=== PATIENT | male | born 1945 | race Caucasian/White ===

== ENCOUNTER 2023-06-10 12:58 | Inpatient (IN) ==
--- NOTE | 2023-06-10 13:23 | Emergency Department Note ---
Impression & Plan Non-ST elevation CT (NSTEMI), Transaminitis, Acute hypoxic respiratory failure, Leukocytosis ED Provider Note HISTORY OF PRESENT ILLNESS: Patient is a 78-year-old male presenting with shortness of breath. Patient reports he has been having progressively worsening shortness of breath over the last 2 weeks. He wears a CPAP at nighttime but does not wear any supplemental oxygen throughout the day. He presented to an outpatient doctor's appointment today and was found to be hypoxic to 67% on room air. Patient denies any chest pain. He denies any significant weight gain in the last few days. He denies any history of heart failure. Denies any recent cough or fevers. Denies any nausea or vomiting. Patient has a history of malignant melanoma received Keytruda dosing 6 weeks ago. Patient denies any DVT or PE history. He is on 81 mg aspirin daily. Patient does report that he has been on a prednisone taper. He reports he is currently on 50 mg for the week. ROS: as above PHYSICAL EXAM: Constitutional: Patient appears in no acute distress. HENT: Head: Normocephalic and atraumatic. Eyes: EOMI, PERRL Mouth/Throat: Mucous membranes moist. Neck: Trachea midline. Neck supple. Cardiovascular: RRR, No murmurs, rubs or gallops. Intact distal pulses. Pulmonary/Chest: No respiratory distress. Breath sounds clear and equal bilaterally. Conversationally dyspneic Abdominal: Abdomen soft, no tenderness, rebound or guarding. Musculoskeletal: No edema, tenderness or deformity noted. Skin: Warm and dry. No rash, erythema, pallor or cyanosis Psychiatric: Appropriate mood and affect for situation. Neurological: Alert and keenly responsive. CN II-XII grossly intact, moving a ll extremities equally and fully. MDM: - Vitals signs showed hypoxia. Patient placed on supplemental oxygen per nursing staff. - History obtained via patient. Patient presents with shortness of breath. Patient reports he been having progressively worsening shortness of breath over the last 2 weeks. He wears a CPAP at nighttime but does not wear any supplemental oxygen throughout the day. Present outpatient doctor's appointment today and found to be hypoxic at 67% on room air. He denies any chest pain. He takes 81 mg of aspirin daily. Denies any significant weight gain or lower extremity edema. - Chronic conditions affecting care: HTN; HLD; DM-2; aortic stenosis; melanoma - Differential diagnoses include, but are not limited to: Congestive heart failure; acute coronary syndrome; COPD/asthma exacerbation; pulmonary edema; pulmonary embolism; pneumonia; pneumothorax; viral syndrome - Order placed for continuous cardiac monitoring. At this time, monitor showed rate of 75 bpm with normal sinus rhythm, per my interpretation. - External medical records reviewed. Documentation from patient's clinic appointment was reviewed. Patient was satting 66% on room air while laying flat and 88% on room air while standing up. Patient's echocardiogram performed at [facility] on 06/03/2023 was reviewed. He had a preserved ejection fraction of 65 to 69% - EKG reviewed by myself showed normal sinus rhythm. Rate 75 bpm. QTc 442. No acute ischemic changes - Laboratory workup interpreted by myself showed leukocytosis (WC 22.42) with left shift; elevated lactate (2.3); elevated troponin (484); hypokalemia (K 3.4); transaminitis (AST 226; ALT 372); normal BNP - VBG WNL - CXR showed mild pulmonary vascular congestion, per my interpretation. - UA negative for infection - CT PE negative for PE. - Biofire negative - Blood cultures obtained. - Patient started empirically on IV vancomycin and cefepime, given significant leukocytosis and new oxygen requirement. - Given heparin bolus and started on heparin gtt for NSTEMI. - Discussion was had with social sciences department chair about patient's case and need for admission - Hospitalist consulted for admission - Patient admitted to [facility] service for further evaluation and management. I provided 38 minutes of critical care time to this patient's care outside of billable procedures. 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 [place], most recent echo scanned to chart Precancerous skin lesion Sleep apnea CPAP SOB (shortness of breath) on exertion NOT WITH STAIRS, ON A HILL...WILL STOP AND RESOLVES WITH REST; ongoing x yrs without change or worsening Surgical History History of colonoscopy History of detached retina repair RIGHT History of tonsillectomy Family History Father Family history of diabetes mellitus Social History Smoking Status: Never smoker Do You Dip or Chew Tobacco: No (HX IN COLLEGE 50 YR AGO); Hx Alcohol Use: Yes Alcohol type: wine Preferred Language: Norwegian Communication Ability: Effective Communication Ability Comment: PT [facility] Machine Oiler Required: No Beliefs That Will Affect Care: None and Tenriism Tenriism Beliefs: [facility] Current Living Situation: Spouse and Family Current Living Situation Comment: AND SON COMES HOME FOR LONG WEEKENDS EVERY OTHER WEEK Feels Safe at Home: Yes Assistive Devices: CPAP and Hearing Aid - Bilateral Allergies Allergies Allergy/AdvReac Type Severity Reaction Status Date / Time No Known Allergies Allergy Verified 11/23/21 06:14 Home Meds Home Medications Medication Instructions Recorded Confirmed amlodipine 10 mg tablet 10 mg PO QAM 11/18/21 06/10/23 aspirin 81 mg tablet,delayed 81 mg PO QAM 11/18/21 06/10/23 release atorvastatin 10 mg tablet 0 mg PO HS 11/18/21 06/10/23 cholecalciferol (vitamin D3) 50 5,000 unit PO QAM 11/18/21 06/10/23 mcg (2,000 unit) capsule (Vitamin D3) finasteride 5 mg tablet 5 mg PO QAM 11/18/21 06/10/23 hydrochlorothiazide 25 mg tablet 25 mg PO QAM 11/18/21 06/10/23 losartan 100 mg tablet 100 mg PO QAM 11/18/21 06/10/23 metoprolol tartrate 50 mg tablet 25 mg PO BID 11/18/21 06/10/23 dulaglutide 1.5 mg/0.5 mL 1.5 mg subcut WK 06/10/23 06/10/23 subcutaneous pen injector (Trulicity) omeprazole 20 mg capsule,delayed 20 mg PO QAM 06/10/23 06/10/23 release prednisone 10 mg tablet See Rx Instructions .Route .COMPLEX 06/10/23 06/10/23 sertraline 50 mg tablet 50 mg PO HS 06/10/23 06/10/23 solifenacin 5 mg tablet (Vesicare) 5 mg PO DAILY 06/10/23 06/10/23 sulfamethoxazole 800 1 tab PO . MON, TUE, Tue06/10/23 06/10/23 mg-trimethoprim 160 mg tablet vitamin B complex 1 tab PO DAILY 06/10/23 06/10/23 Results & Data (ED) Vital Signs Vital Signs - 24 hr 06/10/23 13:01 06/10/23 13:17 06/10/23 13:23 Temperature 36.5 C Temperature Source Oral Pulse Rate 81 77 Pulse Rate [Apical] Respiratory Rate 24 Respiratory Effort / Characteristics Labored Accessory Muscle Use Respiratory Depth Shallow Respiratory Pattern Regular Blood Pressure 147/86 H Blood Pressure [Left Arm] Blood Pressure Mean 106 Blood Pressure Mean [Left Arm] Blood Pressure Position Sitting Blood Pressure Position [Left Arm] Pulse Oximetry 83 L Oxygen Delivery Method Room Air Nasal Cannula Oxygen Flow Rate 2 Sepsis Recent Fever Within 48 Hours No Sepsis New/Unexplained Change in Mental Status No Sepsis Action Taken by Nursing No Action Required Oxygen Flow Rate - Titration Pulse Oximetry Post Tiitration 06/10/23 13:23 06/10/23 15:35 Temperature Temperature Source Pulse Rate Pulse Rate [Apical] 81 Respiratory Rate 24 Respiratory Effort / Characteristics Non-Labored Respiratory Depth Normal Respiratory Pattern Blood Pressure Blood Pressure [Left Arm] 154/85 H Blood Pressure Mean Blood Pressure Mean [Left Arm] 108 Blood Pressure Position Blood Pressure Position [Left Arm] Sitting Pulse Oximetry 86 L 94 Oxygen Delivery Method Room Air Nasal Cannula Nasal Cannula Oxygen Flow Rate 0 3 Sepsis Recent Fever Within 48 Hours Sepsis New/Unexplained Change in Mental Status Sepsis Action Taken by Nursing Oxygen Flow Rate - Titration 2 Pulse Oximetry Post Tiitration 94 Laboratory Data 06/10/23 13:16 06/10/23 13:16 Lab Results 06/10/23 06/10/23 06/10/23 Range/Units 13:16 13:16 13:16 WBC 22.42 H (4.8-10.8) K/ul RBC 5.43 (4.70-6.10) M/uL Hgb 16.7 (14.0-18.0) g/dl Hct 48.8 (42.0-52.0) % MCV 89.9 (80.0-100.0) fL MCH 30.8 (25.0-34.0) pg MCHC 34.2 (32.0-36.0) g/dL RDW Std Deviation 46.5 H (36.4-46.3) fL RDW Coeff of Belen 14.1 (11.5-14.5) % Plt Count 213 (130-400) K/uL MPV 9.4 (9.4-12.4) fL Immature Gran % (Auto) 1.2 % Neut % (Auto) 87.0 % Lymph % (Auto) 6.6 % Wilcox % (Auto) 4.9 % Eos % (Auto) 0.1 % Baso % (Auto) 0.2 % Neut # (Auto) 19.52 H (1.40-6.50) K/uL Lymph # (Auto) 1.47 (1.20-3.40) K/uL Wilcox # (Auto) 1.10 H (0.11-0.59) K/uL Eos # (Auto) 0.03 (0.00-0.50) K/uL Baso # (Auto) 0.04 (0.00-0.20) K/uL Immature Gran # (Auto) 0.26 H (0.01-0.20) K/uL PT 11.7 (9.0-12.0) Seconds INR 1.1 (0.9-1.1) VBG pH (7.36-7.41) VBG pCO2 (38-50) mmHg VBG pO2 mmHg VBG HCO3 mmol/L VBG O2 Saturation % VBG Base Excess mEq/L Sodium 138 (136-145) mmol/L Potassium 3.4 L (3.5-5.1) mmol/L Chloride 97 L (98-107) mmol/L Carbon Dioxide 33 H (21-32) mmol/L Anion Gap 8 (3-11) BUN 30 H (6-23) mg/dl Creatinine 1.06 (0.6-1.4) mg/dl Est Cr Clr Drug Dosing 85.5 ml/min Est GFR ( Amer) 78.6 ml/min Est GFR (Non-Af Amer) 67.8 ml/min BUN/Creatinine Ratio 28.3 H (10-20) Glucose 174 H (70-99(Fasting)) mg/dl Lactate (0.4-2.0) mmol/L Calcium 9.5 (8.6-10.3) mg/dl Magnesium 2.2 (1.7-2.4) mg/dl Total Bilirubin 1.0 (0.2-1.0) mg/dl AST 226 H (13-39) U/L ALT 372 H (7-52) U/L Alkaline Phosphatase 69 (34-104) U/L Troponin I High Sens 484.0 H* (0-20) pg/ml B-Natriuretic Peptide (0-100) pg/ml Total Protein 6.9 (6.0-8.3) gm/dl Albumin 4.0 (3.4-5.0) gm/dl Globulin 2.9 (2.5-4.0) gm/dl Albumin/Globulin Ratio 1.4 (0.9-2) Urine Color Urine Appearance (Clear) Urine pH (4.5-7.5) Ur Specific Fallon (1.000-1.030) Urine Protein (Negative) Urine Glucose (UA) (Negative) Urine Ketones (Negative) Urine Blood (Negative) Urine Nitrite (Negative) Urine Bilirubin (Negative) Urine Urobilinogen (Negative) Ur Leukocyte Esterase (Negative) Urine WBC (Auto) (0-5) /hpf Urine RBC (Auto) (0-4) /hpf U Hyaline Cast (Auto) (0-5) /lpf U Epithel Cells (Auto) (0-5) /lpf Urine Bacteria (Auto) (Negative) Adenovirus (PCR) (NotDetected) B. pertussis DNA (PCR) (NotDetected) B.parapertussis DNA PCR (NotDetected) C. pneumoniae DNA (PCR) (NotDetected) Coronavirus OC43 (PCR) (NotDetected) Coronavirus HKU1 (PCR) (NotDetected) Coronavirus 229E (PCR) (NotDetected) SARS-CoV-2 (PCR) (NotDetected) Coronavirus NL63 (PCR) (NotDetected) Human Metapneumovir PCR (NotDetected) Influenza Type A (PCR) (NotDetected) Influenza Type B (PCR) (NotDetected) M. pneumoniae (PCR) (NotDetected) Parainfluenza 1 (PCR) (NotDetected) Parainfluenza 2 (PCR) (NotDetected) Parainfluenza 3 (PCR) (NotDetected) Parainfluenza 4 (PCR) (NotDetected) RSV (PCR) (NotDetected) Entero/Rhino (PCR) (NotDetected) 06/10/23 06/10/23 06/10/23 Range/Units 13:16 13:32 13:33 WBC (4.8-10.8) K/ul RBC (4.70-6.10) M/uL Hgb (14.0-18.0) g/dl Hct (42.0-52.0) % MCV (80.0-100.0) fL MCH (25.0-34.0) pg MCHC (32.0-36.0) g/dL RDW Std Deviation (36.4-46.3) fL RDW Coeff of Belen (11.5-14.5) % Plt Count (130-400) K/uL MPV (9.4-12.4) fL Immature Gran % (Auto) % Neut % (Auto) % Lymph % (Auto) % Wilcox % (Auto) % Eos % (Auto) % Baso % (Auto) % Neut # (Auto) (1.40-6.50) K/uL Lymph # (Auto) (1.20-3.40) K/uL Wilcox # (Auto) (0.11-0.59) K/uL Eos # (Auto) (0.00-0.50) K/uL Baso # (Auto) (0.00-0.20) K/uL Immature Gran # (Auto) (0.01-0.20) K/uL PT (9.0-12.0) Seconds INR (0.9-1.1) VBG pH 7.41 (7.36-7.41) VBG pCO2 50 (38-50) mmHg VBG pO2 45 mmHg VBG HCO3 32 mmol/L VBG O2 Saturation 76.0 % VBG Base Excess 5.8 mEq/L Sodium (136-145) mmol/L Potassium (3.5-5.1) mmol/L Chloride (98-107) mmol/L Carbon Dioxide (21-32) mmol/L Anion Gap (3-11) BUN (6-23) mg/dl Creatinine (0.6-1.4) mg/dl Est Cr Clr Drug Dosing ml/min Est GFR ( Amer) ml/min Est GFR (Non-Af Amer) ml/min BUN/Creatinine Ratio (10-20) Glucose (70-99(Fasting)) mg/dl Lactate (0.4-2.0) mmol/L Calcium (8.6-10.3) mg/dl Magnesium (1.7-2.4) mg/dl Total Bilirubin (0.2-1.0) mg/dl AST (13-39) U/L ALT (7-52) U/L Alkaline Phosphatase (34-104) U/L Troponin I High Sens (0-20) pg/ml B-Natriuretic Peptide 51 (0-100) pg/ml Total Protein (6.0-8.3) gm/dl Albumin (3.4-5.0) gm/dl Globulin (2.5-4.0) gm/dl Albumin/Globulin Ratio (0.9-2) Urine Color Urine Appearance (Clear) Urine pH (4.5-7.5) Ur Specific Fallon (1.000-1.030) Urine Protein (Negative) Urine Glucose (UA) (Negative) Urine Ketones (Negative) Urine Blood (Negative) Urine Nitrite (Negative) Urine Bilirubin (Negative) Urine Urobilinogen (Negative) Ur Leukocyte Esterase (Negative) Urine WBC (Auto) (0-5) /hpf Urine RBC (Auto) (0-4) /hpf U Hyaline Cast (Auto) (0-5) /lpf U Epithel Cells (Auto) (0-5) /lpf Urine Bacteria (Auto) (Negative) Adenovirus (PCR) Not Detected (NotDetected) B. pertussis DNA (PCR) Not Detected (NotDetected) B.parapertussis DNA PCR Not Detected (NotDetected) C. pneumoniae DNA (PCR) Not Detected (NotDetected) Coronavirus OC43 (PCR) Not Detected (NotDetected) Coronavirus HKU1 (PCR) Not Detected (NotDetected) Coronavirus 229E (PCR) Not Detected (NotDetected) SARS-CoV-2 (PCR) Not Detected (NotDetected) Coronavirus NL63 (PCR) Not Detected (NotDetected) Human Metapneumovir PCR Not Detected (NotDetected) Influenza Type A (PCR) Not Detected (NotDetected) Influenza Type B (PCR) Not Detected (NotDetected) M. pneumoniae (PCR) Not Detected (NotDetected) Parainfluenza 1 (PCR) Not Detected (NotDetected) Parainfluenza 2 (PCR) Not Detected (NotDetected) Parainfluenza 3 (PCR) Not Detected (NotDetected) Parainfluenza 4 (PCR) Not Detected (NotDetected) RSV (PCR) Not Detected (NotDetected) Entero/Rhino (PCR) Not Detected (NotDetected) 06/10/23 06/10/23 06/10/23 Range/Units 13:33 13:53 15:34 WBC (4.8-10.8) K/ul RBC (4.70-6.10) M/uL Hgb (14.0-18.0) g/dl Hct (42.0-52.0) % MCV (80.0-100.0) fL MCH (25.0-34.0) pg MCHC (32.0-36.0) g/dL RDW Std Deviation (36.4-46.3) fL RDW Coeff of Belen (11.5-14.5) % Plt Count (130-400) K/uL MPV (9.4-12.4) fL Immature Gran % (Auto) % Neut % (Auto) % Lymph % (Auto) % Wilcox % (Auto) % Eos % (Auto) % Baso % (Auto) % Neut # (Auto) (1.40-6.50) K/uL Lymph # (Auto) (1.20-3.40) K/uL Wilcox # (Auto) (0.11-0.59) K/uL Eos # (Auto) (0.00-0.50) K/uL Baso # (Auto) (0.00-0.20) K/uL Immature Gran # (Auto) (0.01-0.20) K/uL PT (9.0-12.0) Seconds INR (0.9-1.1) VBG pH (7.36-7.41) VBG pCO2 (38-50) mmHg VBG pO2 mmHg VBG HCO3 mmol/L VBG O2 Saturation % VBG Base Excess mEq/L Sodium (136-145) mmol/L Potassium (3.5-5.1) mmol/L Chloride (98-107) mmol/L Carbon Dioxide (21-32) mmol/L Anion Gap (3-11) BUN (6-23) mg/dl Creatinine (0.6-1.4) mg/dl Est Cr Clr Drug Dosing ml/min Est GFR ( Amer) ml/min Est GFR (Non-Af Amer) ml/min BUN/Creatinine Ratio (10-20) Glucose (70-99(Fasting)) mg/dl Lactate 2.3 H* (0.4-2.0) mmol/L Calcium (8.6-10.3) mg/dl Magnesium (1.7-2.4) mg/dl Total Bilirubin (0.2-1.0) mg/dl AST (13-39) U/L ALT (7-52) U/L Alkaline Phosphatase (34-104) U/L Troponin I High Sens 375.0 H* D (0-20) pg/ml B-Natriuretic Peptide (0-100) pg/ml Total Protein (6.0-8.3) gm/dl Albumin (3.4-5.0) gm/dl Globulin (2.5-4.0) gm/dl Albumin/Globulin Ratio (0.9-2) Urine Color Yellow Urine Appearance Clear (Clear) Urine pH 7.0 (4.5-7.5) Ur Specific Fallon 1.020 (1.000-1.030) Urine Protein Trace H (Negative) Urine Glucose (UA) Negative (Negative) Urine Ketones Negative (Negative) Urine Blood 2+ H (Negative) Urine Nitrite Negative (Negative) Urine Bilirubin Negative (Negative) Urine Urobilinogen Negative (Negative) Ur Leukocyte Esterase Negative (Negative) Urine WBC (Auto) 1-5 (0-5) /hpf Urine RBC (Auto) 0-4 (0-4) /hpf U Hyaline Cast (Auto) 1-5 (0-5) /lpf U Epithel Cells (Auto) 5-10 H (0-5) /lpf Urine Bacteria (Auto) Negative (Negative) Adenovirus (PCR) (NotDetected) B. pertussis DNA (PCR) (NotDetected) B.parapertussis DNA PCR (NotDetected) C. pneumoniae DNA (PCR) (NotDetected) Coronavirus OC43 (PCR) (NotDetected) Coronavirus HKU1 (PCR) (NotDetected) Coronavirus 229E (PCR) (NotDetected) SARS-CoV-2 (PCR) (NotDetected) Coronavirus NL63 (PCR) (NotDetected) Human Metapneumovir PCR (NotDetected) Influenza Type A (PCR) (NotDetected) Influenza Type B (PCR) (NotDetected) M. pneumoniae (PCR) (NotDetected) Parainfluenza 1 (PCR) (NotDetected) Parainfluenza 2 (PCR) (NotDetected) Parainfluenza 3 (PCR) (NotDetected) Parainfluenza 4 (PCR) (NotDetected) RSV (PCR) (NotDetected) Entero/Rhino (PCR) (NotDetected) 06/10/23 Range/Units 15:34 WBC (4.8-10.8) K/ul RBC (4.70-6.10) M/uL Hgb (14.0-18.0) g/dl Hct (42.0-52.0) % MCV (80.0-100.0) fL MCH (25.0-34.0) pg MCHC (32.0-36.0) g/dL RDW Std Deviation (36.4-46.3) fL RDW Coeff of Belen (11.5-14.5) % Plt Count (130-400) K/uL MPV (9.4-12.4) fL Immature Gran % (Auto) % Neut % (Auto) % Lymph % (Auto) % Wilcox % (Auto) % Eos % (Auto) % Baso % (Auto) % Neut # (Auto) (1.40-6.50) K/uL Lymph # (Auto) (1.20-3.40) K/uL Wilcox # (Auto) (0.11-0.59) K/uL Eos # (Auto) (0.00-0.50) K/uL Baso # (Auto) (0.00-0.20) K/uL Immature Gran # (Auto) (0.01-0.20) K/uL PT (9.0-12.0) Seconds INR (0.9-1.1) VBG pH (7.36-7.41) VBG pCO2 (38-50) mmHg VBG pO2 mmHg VBG HCO3 mmol/L VBG O2 Saturation % VBG Base Excess mEq/L Sodium (136-145) mmol/L Potassium (3.5-5.1) mmol/L Chloride (98-107) mmol/L Carbon Dioxide (21-32) mmol/L Anion Gap (3-11) BUN (6-23) mg/dl Creatinine (0.6-1.4) mg/dl Est Cr Clr Drug Dosing ml/min Est GFR ( Amer) ml/min Est GFR (Non-Af Amer) ml/min BUN/Creatinine Ratio (10-20) Glucose (70-99(Fasting)) mg/dl Lactate 1.8 (0.4-2.0) mmol/L Calcium (8.6-10.3) mg/dl Magnesium (1.7-2.4) mg/dl Total Bilirubin (0.2-1.0) mg/dl AST (13-39) U/L ALT (7-52) U/L Alkaline Phosphatase (34-104) U/L Troponin I High Sens (0-20) pg/ml B-Natriuretic Peptide (0-100) pg/ml Total Protein (6.0-8.3) gm/dl Albumin (3.4-5.0) gm/dl Globulin (2.5-4.0) gm/dl Albumin/Globulin Ratio (0.9-2) Urine Color Urine Appearance (Clear) Urine pH (4.5-7.5) Ur Specific Fallon (1.000-1.030) Urine Protein (Negative) Urine Glucose (UA) (Negative) Urine Ketones (Negative) Urine Blood (Negative) Urine Nitrite (Negative) Urine Bilirubin (Negative) Urine Urobilinogen (Negative) Ur Leukocyte Esterase (Negative) Urine WBC (Auto) (0-5) /hpf Urine RBC (Auto) (0-4) /hpf U Hyaline Cast (Auto) (0-5) /lpf U Epithel Cells (Auto) (0-5) /lpf Urine Bacteria (Auto) (Negative) Adenovirus (PCR) (NotDetected) B. pertussis DNA (PCR) (NotDetected) B.parapertussis DNA PCR (NotDetected) C. pneumoniae DNA (PCR) (NotDetected) Coronavirus OC43 (PCR) (NotDetected) Coronavirus HKU1 (PCR) (NotDetected) Coronavirus 229E (PCR) (NotDetected) SARS-CoV-2 (PCR) (NotDetected) Coronavirus NL63 (PCR) (NotDetected) Human Metapneumovir PCR (NotDetected) Influenza Type A (PCR) (NotDetected) Influenza Type B (PCR) (NotDetected) M. pneumoniae (PCR) (NotDetected) Parainfluenza 1 (PCR) (NotDetected) Parainfluenza 2 (PCR) (NotDetected) Parainfluenza 3 (PCR) (NotDetected) Parainfluenza 4 (PCR) (NotDetected) RSV (PCR) (NotDetected) Entero/Rhino (PCR) (NotDetected) Administered Medications Discontinued Medications Cefepime HCl (Maxipime) 2,000 mg in 20 mls @ 5 mls/min IV NOW STA; Protocol Stop: 06/10/23 13:48 Last Admin: 06/10/23 14:09 Dose: 5 mls/min Documented By: NAKIA Vancomycin HCl 2,750 mg/ (Sodium Chloride) 555 mls @ 200 mls/hr IV NOW ONE Stop: 06/10/23 16:37 Last Admin: 06/10/23 14:23 Dose: 200 mls/hr Documented By: NAKIA Ioversol (Optiray 320 500ml) 121 ml IV ONCE ONE Stop: 06/10/23 14:52 Last Admin: 06/10/23 14:51 Dose: 121 ml Documented By: EDK Imaging Data Radiologist's Impression: Chest CTA 06/10/23 13:10 CT angio chest PE protocol CT DOSE: 819.02 mGy.cm HISTORY: 78 years-old Male with Dyspnea; hypoxia. Acute shortness of breath with hypoxia TECHNIQUE: Multiple CTA images of the chest were obtained after the intravenous administration of 121 ml Optiray. Coronal and sagittal MIPS were obtained from the axial data set and were submitted for review. All measurements were obtained according to NASCET criteria. A dose lowering technique was utilized adhering to the principles of ALARA. COMPARISON: Chest radiograph of same day FINDINGS: CTA: Moderate cardiomegaly. No pericardial effusion. Extensive coronary artery calcifications. Atherosclerosis of the aorta. Right IJ is a port catheter distal tip terminates in the inferior SVC. Left heart structures are not well opacified and therefore difficult to evaluate. Reflux of contrast into the IVC. Suboptimal opacification of the pulmonary artery secondary to contrast bolus timing. No pulmonary emboli identified. CT CHEST: No thyroid nodule identified. No lymphadenopathy. No pneumothorax, pleural effusion or overt pulmonary edema. Mild linear subsegmental bibasilar atele ctasis. Mild bronchial wall thickening. No suspicious pulmonary nodules or mass is identified. Scattered punctate calcified pulmonary granulomata of the lung bases. Mild bibasilar mucous plugging. No acute process of the imaged upper abdomen. Distended gallbladder. Hepatic steatosis. Unremarkable soft tissues. No acute fracture. IMPRESSION: 1. Limited exam as above. There is cardiomegaly without pulmonary emboli iden tified. 2. No pleural effusion or airspace consolidation to suggest pneumonia. 3. Bronchial wall thickening suggestive of bronchitis or reactive airway disease. 4. Bibasilar mucous plugging with atelectasis. 5. Hepatic steatosis. 6. Distended gallbladder. ACT 112: Negative or not required by law. The above report was generated using voice recognition software. It may contain grammatical, syntax or spelling errors. Electronically signed by: Flaquito Clemente M.D. 06/10/2023 3:27 PM Chest X-Ray 06/10/23 13:10 XR chest 1V portable HISTORY: 78 years-old Male Dyspnea acute shortness of breath COMPARISON: None TECHNIQUE: AP view the chest FINDINGS: Cardiac silhouette is enlarged. Right IJ [id number] catheter. Pulmonary vascular congestion. Hypoinflation with bibasilar densities. No pneumothorax. Degenerative changes of the shoulders and spine. IMPRESSION: 1. Cardiomegaly with pulmonary vascular congestion. 2. Hypoinflation with mild bibasilar opacities favoring atelectasis. ACT 112: Negative or not required by law. The above report was generated using voice recognition software. It may contain grammatical, syntax or spelling errors. Electronically signed by: Flaquito Clemente M.D. 06/10/2023 1:44 PM Discharge Plan Visit Data Chief Complaint: Shortness of Breath/Dyspnea Stated Complaint: SOB, REACTION TO MEDS ED Provider: Enedelia Goldstein Discharge Problem: Non-ST elevation CT (NSTEMI), Transaminitis, Acute hypoxic respiratory failure, Leukocytosis Forms Stand Alone Forms: My [facility] [employer] Prescriptions Prescriptions: No Action atorvastatin 10 mg Tablet 0 mg PO HS Rx Instructions: per PCP office pt isnt taking the medication aspirin 81 mg Tablet,Delayed Release (Dr/Ec) 81 mg PO QAM amlodipine 10 mg Tablet 10 mg PO QAM metoprolol tartrate 50 mg Tablet 25 mg PO BID hydrochlorothiazide 25 mg Tablet 25 mg PO QAM losartan 100 mg Tablet 100 mg PO QAM finasteride 5 mg Tablet 5 mg PO QAM cholecalciferol (vitamin D3) [Vitamin D3] 50 mcg (2,000 unit) Capsule 5,000 unit PO QAM prednisone 10 mg tablet See Rx Instructions .ROUTE .COMPLEX Rx Instructions: 5 tabs in the morning per PCP office. Is on a tapering dose. sulfamethoxazole-trimethoprim 800-160 mg tablet 1 tab PO . TUE, TUE, TUE Rx Instructions: tuesday,tuesday, tuesday only omeprazole 20 mg capsule,delayed release(DR/EC) 20 mg PO QAM vitamin B complex Tablet 1 tab PO DAILY sertraline 50 mg tablet 50 mg PO HS solifenacin [Vesicare] 5 mg Tablet 5 mg PO DAILY Trulicity 1.5 mg/0.5 mL pen injector 1.5 mg SUBCUT WK Referrals Referrals: Sami Stephens DO [Primary Care Provider] -
[2023-06-10 13:44] LABS: Basophils # (auto) 0.04 K/uL (0.00-0.20); Basophils % (auto) 0.2 %; Eosinophils # (auto) 0.03 K/uL (0.00-0.50); Eosinophils % (auto) 0.1 %; Hematocrit (blood only) 48.8 % (42.0-52.0); Hemoglobin 16.7 g/dl (14.0-18.0); Immature Granulocytes # (auto) 0.26 K/uL (0.01-0.20); Immature Granulocytes % (auto) 1.2 %; Lymphocytes # (auto) 1.47 K/uL (1.20-3.40); Lymphocytes % (auto) 6.6 %; Mean Corpuscular Hemoglobin 30.8 pg (25.0-34.0); Mean Corpuscular Hgb Conc 34.2 g/dL (32.0-36.0); Mean Corpuscular Volume 89.9 fL (80.0-100.0); Mean Platelet Volume 9.4 fL (9.4-12.4); Monocytes % (auto) 4.9 %; Neutrophils # (auto) 19.52 K/uL (1.40-6.50); Platelet Count 213 K/uL (130-400); RDW Coefficient of Variation 14.1 % (11.5-14.5); RDW Standard Deviation 46.5 fL (36.4-46.3); Red Blood Count 5.43 M/uL (4.70-6.10); White Blood Count 22.42 K/ul (4.8-10.8)
[2023-06-10] MEDS ORDERED: VANCOMYCIN HCL 2,750 MG in SODIUM CHLORIDE 0.9% 500 ML IV ONE (13:45)
[2023-06-10] MEDS ORDERED: VANCOMYCIN CONSULT ACTIVE PRN (13:45)
[2023-06-10] MEDS ORDERED: CEFEPIME 2,000 MG/20 ML VIAL IV STA (13:45)
--- NOTE | 2023-06-10 13:45 | XRay Report ---
XR chest 1V portable HISTORY: 78 years-old Male Dyspnea acute shortness of breath COMPARISON: None TECHNIQUE: AP view the chest FINDINGS: Cardiac silhouette is enlarged. Right IJ [id number] catheter. Pulmonary vascular congestion. Hypoi nflation with bibasilar densities. No pneumothorax. Degenerative changes of the shoulders and spine. IMPRESSION: 1. Cardiomegaly with pulmonary vascular congestion. 2. Hypoinflation with mild bibasilar opacities favoring atelectasis. ACT 112: Negative or not required by law. The above report was generated using voice recognition software. It may contain grammatical, syntax o r spelling errors. Electronically signed by: Flaquito Clemente M.D. 06/10/2023 1:44 PM
[2023-06-10 13:47] LABS: Base Excess VBG 5.8 mEq/L; HCO3 VBG 32 mmol/L; PCO2 VBG 50 mmHg (38-50); PO2 VBG 45 mmHg; pH VBG 7.41 (7.36-7.41)
[2023-06-10 13:56] LABS: Albumin Globulin Ratio 1.4 (0.9-2); BUN Creatinine Ratio 28.3 (10-20); Calcium 9.5 mg/dl (8.6-10.3); Creatinine Clr Calc Pharmacy 85.5 ml/min; Est GFR (African American) 78.6 ml/min; Est GFR (Non-African American) 67.8 ml/min; Globulin 2.9 gm/dl (2.5-4.0); Magnesium 2.2 mg/dl (1.7-2.4); Potassium 3.4 mmol/L (3.5-5.1); Total Protein 6.9 gm/dl (6.0-8.3)
[2023-06-10 14:14] LABS: INR 1.1 (0.9-1.1); Prothrombin Time 11.7 Seconds (9.0-12.0)
[2023-06-10 14:43] LABS: Appearance Urine Clear (Clear); Bacteria Urine Automated Negative (Negative); Bilirubin Urine Negative (Negative); Blood Urine 2+ (Negative); Color Urine Yellow; Glucose Urine UA Negative (Negative); Ketones Urine Negative (Negative); Leukocyte Esterase Urine Negative (Negative); Nitrite Urine Negative (Negative); Protein Urine Trace (Negative); RBC Urine Automated 0-4 /hpf (0-4); Urobilinogen Urine Negative (Negative)
[2023-06-10] MEDS ORDERED: OPTIRAY 320 500ml IV ONE (14:51)
[2023-06-10 15:24] LABS: Adenovirus PCR Not Detected (NotDetected); Bordetella parapertussis PCR Not Detected (NotDetected); Bordetella pertussis PCR Not Detected (NotDetected); Chlamydia pneumoniae PCR Not Detected (NotDetected); Coronavirus 229E PCR Not Detected (NotDetected); Coronavirus CoV-2 (COVID19)PCR Not Detected (NotDetected); Coronavirus HKU1 PCR Not Detected (NotDetected); Coronavirus NL63 PCR Not Detected (NotDetected); Coronavirus OC43PCR Not Detected (NotDetected); Human Metapneumovirus PCR Not Detected (NotDetected); Influenza A PCR Not Detected (NotDetected); Influenza B PCR Not Detected (NotDetected); Mycoplasma pneumoniae PCR Not Detected (NotDetected); Parainfluenza Virus 1 PCR Not Detected (NotDetected); Parainfluenza Virus 2 PCR Not Detected (NotDetected); Parainfluenza Virus 3 PCR Not Detected (NotDetected); Parainfluenza Virus 4 PCR Not Detected (NotDetected); Respiratory Syncytial VirusPCR Not Detected (NotDetected); Rhinovirus/Enterovirus PCR Not Detected (NotDetected)
--- NOTE | 2023-06-10 15:28 | CT Scan Report ---
CT angio chest PE protocol CT DOSE: 819.02 mGy.cm HISTORY: 78 years-old Male with Dyspnea; hypoxia. Acute shortness of breath with hypoxia TECHNIQUE: Multiple CTA images of the chest were obtained after the intravenous administration of 121 ml Optiray. Coronal and sagittal MIPS were obtained from the axial data set and were submitted for review. All measurements were obtained according to NASCET criteria. A dose lowering technique was u tilized adhering to the principles of ALARA. COMPARISON: Chest radiograph of same day FINDINGS: CTA: Moderate cardiomegaly. No pericardial effusion. Extensive coronary artery calcifications. Atheroscler osis of the aorta. Right IJ is a port catheter distal tip terminates in the inferior SVC. Left heart structures are not well opacified and therefore difficult to evaluate. Reflux of contrast into the IV C. Suboptimal opacification of the pulmonary artery secondary to contrast bolus timing. No pulmonary emboli identified. CT CHEST: No thyroid nodule identified. No lymphadenopathy. No pneumothorax, pleural effusion or overt pulmonar y edema. Mild linear subsegmental bibasilar atelectasis. Mild bronchial wall thickening. No suspiciou s pulmonary nodules or mass is identified. Scattered punctate calcified pulmonary granulomata of the lung bases. Mild bibasilar mucous plugging. No acute process of the imaged upper abdomen. Distended gallbladder. Hepatic steatosis. Unremarkable soft tissues. No acute fracture. IMPRESSION: 1. Limited exam as above. There is cardiomegaly without pulmonary emboli identified. 2. No pleural effusion or airspace consolidation to suggest pneumonia. 3. Bronchial wall thickening suggestive of bronchitis or reactive airway disease. 4. Bibasilar mucous plugging with atelectasis. 5. Hepatic steatosis. 6. Distended gallbladder. ACT 112: Negative or not required by law. The above report was generated using voice recognition software. It may contain grammatical, syntax o r spelling errors. Electronically signed by: Flaquito Clemente M.D. 06/10/2023 3:27 PM
[2023-06-10] MEDS ORDERED: Heparin IV Adult Wt-Based Standard WITH Bolus Protocol IV STA (16:06)
[2023-06-10] MEDS ORDERED: HEPARIN SOD (PORCINE) 1000 UNIT/ML IV ONE ×2 (16:21→16:45)
--- NOTE | 2023-06-10 17:13 | History & Physical Report ---
Date of Service June 10, 2023 Assessment & Plan (1) Acute hypoxic respiratory failure: Plan: This is a 78 y/o male with metastatic melanoma, recent drug-induced hepatitis and rhabdomyolysis, prediabetes, SANDRINE on CPAP, dyslipidemia, 1st degree AV block, and anxiety who was referred to the ED today from his PCP office where he presented for evaluation of worsening cough and shortness of breath. He was found to hypoxic and referred to the ED. In the ED, work-up revealed an elevated troponin and EKG with subtle ST segment depression in the lateral leads. He was placed on 3L of O2 with improvement in sats though still symptomatically short of breath. He was given cefepime and vanco x 1 in the ED. Discussed case with cardiology at the bedside. Repeat EKG on oxygen with improvement in prior changes. Second troponin is trending down. Suspect demand ischemia related to hypoxia. CTA chest was negative for PE but showed atelectasis and mucus plugging as well as possible pneumonitis, which can be associated with Keytruda. - Admit to PCU - Continue supplemental O2 - will wean as tolerated - Appreciate cardiology input - trend troponin, repeat EKG in AM. Will hold on repeat ECHO for now since outpatient ECHO done three days ago. Will re-evaluate tomorrow pending results of additional testing. - Heparin gtt initiated in the ED - will continue for now - Check procalcitonin - holding additional antibiotics for now since pt afebrile. Suspect leukocytosis due to current prednisone course. - IV Lasix x 1 dose due to edema and potential component of fluid overload - re- evaluate need for additional diuretics tomorrow - Incentive spirometry and flutter valve ordered. - Continue current prednisone dose of 50 mg daily - defer additional taper to oncology (2) Demand ischemia of myocardium: (3) Metastatic melanoma: (4) BPH loc w urin obs/LUTS: (5) Aortic stenosis: (6) Sleep apnea: Plan: CPAP with home settings ordered. Plan Continue other home medicationas as appropriate. Pt seen and reviewed with collaborating physician, Dr. Aguilera. Plan of care discussed and as outlined above. Code Status: Full code if reasonable chance of recovery but no prolonged heroic measures DVT Prophylaxis: heparin gtt Matheus Fitch PA-C History of Present Illness Chief Complaint: shortness of breath, hypoxia at PCP office Primary Care Provider: Sami Stephens, DO This is a 78 y/o male with metastatic melanoma, recent drug-induced hepatitis and rhabdomyolysis, prediabetes, SANDRINE on CPAP, dyslipidemia, 1st degree AV block, and anxiety who was referred to the ED today from his PCP office where he presented for evaluation of worsening cough and shortness of breath but was found to be hypoxic. Pt was diagnosed with metastatic melanoma earlier this year and underwent surgical excision. 1/2 LN were positive. Pt was started on Keytruda by oncology (Dr. Maldonado) on 05/06/23 and initially did okay before developing back pain that migrated to abdomen and then head before eventually resolving. On labs before second dose, he was noted to have rhabdomyolysis and transaminitis after first dose so Keytruda was stopped and patient was started on prednisone 80 mg daily. This is slowly being tapered by oncology as labs improve. Initial CK was 12,192 on 05/27/23. Most recent on 06/09 was 3,498. Prednisone was being decreased to 50 mg daily today. Pt is also being started on Bactrim prophylaxis. He has an appointment next week to determine next steps in his treatment plan. He reports that after the pain started to resolve and after starting prednisone, he noticed increasing dyspnea with exertion and orthopnea. Typically, he is able to lie flat without issue but over the last several days, he is having difficulty sleeping because of the trouble breathing if he tries to lie down. He has also noted significant dyspnea with even walking to the bathroom, which has limited his ability to function. This dyspnea does resolve with rest. He has been checking his pulseox at home and it has been dropping into the upper 80s with exertion. He denies cough but has noted phlegm in his throat at night. When he is able to bring it up, he notes it is a small amount but thick and tenacious. He denies fevers, chills, sweats, chest pain, palpitations or syncope. His appetite is decreased and his stomach feels "queasy" on the prednisone but he denies N/V/D. He has had constipation. No blood in stools. Allergies Allergy/AdvReac Type Severity Reaction Status Date / Time No Known Allergies Allergy Verified 11/23/21 06:14 Home Medications Medication Instructions Recorded Confirmed Type amlodipine 10 mg tablet 10 mg PO QAM 11/18/21 06/10/23 History aspirin 81 mg tablet,delayed 81 mg PO QAM 11/18/21 06/10/23 History release atorvastatin 10 mg tablet 20 mg PO HS 11/18/21 06/10/23 History cholecalciferol (vitamin D3) 50 5,000 unit PO QAM 11/18/21 06/10/23 History mcg (2,000 unit) capsule (Vitamin D3) finasteride 5 mg tablet 5 mg PO QAM 11/18/21 06/10/23 History hydrochlorothiazide 25 mg tablet 25 mg PO QAM 11/18/21 06/10/23 History losartan 100 mg tablet 100 mg PO QAM 11/18/21 06/10/23 History dulaglutide 1.5 mg/0.5 mL 1.5 mg subcut WK 06/10/23 06/10/23 History subcutaneous pen injector (Trulicity) metoprolol tartrate 25 mg tablet 25 mg PO BID 06/10/23 06/10/23 History omeprazole 20 mg capsule,delayed 20 mg PO QAM 06/10/23 06/10/23 History release prednisone 10 mg tablet See Rx Instructions .Route .COMPLEX 06/10/23 06/10/23 History sertraline 50 mg tablet 50 mg PO HS 06/10/23 06/10/23 History solifenacin 5 mg tablet (Vesicare) 5 mg PO DAILY PRN urinary frequency 06/10/23 06/10/23 History sulfamethoxazole 800 1 tab PO 3XWK 06/10/23 06/10/23 History mg-trimethoprim 160 mg tablet vitamin B complex 1 tab PO DAILY 06/10/23 06/10/23 History Past Med/Surg History Medical History (Updated 06/10/23 @ 19:44 by Leslie Fitch PA-C) 1st degree AV block Benign essential tremor "BENIGN TREMOR" MOSTLY HANDS BPH loc w urin obs/LUTS Enlarged prostate Gouty arthritis History of abnormal electrocardiogram 2-3 YR AGO, TESTING DONE...DX HEART MURMUR History of colon polyps "MINOR" TO F/U IN 5-10 YRS HTN (hypertension) Hyperlipidemia Impaired renal function Moderate to severe aortic stenosis Prediabetes A1c on 05/27/23 - 6.3 Sleep apnea CPAP SOB (shortness of breath) on exertion NOT WITH STAIRS, ON A HILL...WILL STOP AND RESOLVES WITH REST; ongoing x yrs without change or worsening Surgical History History of cataract surgery History of colonoscopy History of detached retina repair RIGHT History of tonsillectomy S/P tonsillectomy Family History Father Family history of diabetes mellitus Heart disease Grandfather (Maternal) Heart disease Social History Smoking Status: Never smoker Do You Dip or Chew Tobacco: No (HX IN COLLEGE 50 YR AGO); Hx Alcohol Use: Yes Alcohol type: wine Preferred Language: Turkmen Communication Ability: Effective Communication Ability Comment: PT [facility] 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 Required: No Beliefs That Will Affect Care: None and Lutheran Lutheran Beliefs: DEMARCO Current Living Situation: Spouse and Family Current Living Situation Comment: AND SON COMES HOME FOR LONG WEEKENDS EVERY OTHER WEEK Feels Safe at Home: Yes Assistive Devices: CPAP and Hearing Aid - Bilateral Review of Systems Review of Systems: All systems reviewed & are unremarkable except as noted in HPI & below Constitutional: + fatigue and + anorexia; no fever and no chills Eyes: no diplopia Ear, Nose, Mouth, Throat: no nasal discharge and no sore throat Respiratory: as per Subjective / HPI Cardiovascular: + edema; no chest pain, no palpitations and no syncope Gastrointestinal: no abdominal pain, no vomiting and no diarrhea/loose stools Genitourinary: no dysuria or no hematuria Musculoskeletal: no myalgia and no body aches Integumentary: no yellowing of the skin Neurologic: no falls, no dizziness and no confusion Psychiatric: + anxiety Physical Exam Physical Exam: See physician documentation for full physical exam Results & Data Results & Data Vital Signs (Past 12 Hours) Vital Signs Temp Pulse Pulse Resp BP BP Pulse Ox 06/10/23 15:35 81 24 154/85 H 94 06/10/23 13:23 86 L 06/10/23 13:23 06/10/23 13:17 77 06/10/23 13:01 36.5 C 81 24 147/86 H 83 L O2 Del Method O2 Flow Rate 06/10/23 15:35 Nasal Cannula 3 06/10/23 13:23 Room Air, Nasal Cannula 0 06/10/23 13:23 Nasal Cannula 2 06/10/23 13:17 06/10/23 13:01 Room Air Laboratory Results Laboratory Results - last 24 hr 06/10/23 06/10/23 06/10/23 13:16 13:16 13:16 WBC 22.42 H RBC 5.43 Hgb 16.7 Hct 48.8 MCV 89.9 MCH 30.8 MCHC 34.2 RDW Std Deviation 46.5 H RDW Coeff of Belen 14.1 Plt Count 213 MPV 9.4 Immature Gran % (Auto) 1.2 Neut % (Auto) 87.0 Lymph % (Auto) 6.6 Republic % (Auto) 4.9 Eos % (Auto) 0.1 Baso % (Auto) 0.2 Neut # (Auto) 19.52 H Lymph # (Auto) 1.47 Republic # (Auto) 1.10 H Eos # (Auto) 0.03 Baso # (Auto) 0.04 Immature Gran # (Auto) 0.26 H PT 11.7 INR 1.1 VBG pH VBG pCO2 VBG pO2 VBG HCO3 VBG O2 Saturation VBG Base Excess Sodium 138 Potassium 3.4 L Chloride 97 L Carbon Dioxide 33 H Anion Gap 8 BUN 30 H Creatinine 1.06 Est Cr Clr Drug Dosing 85.5 Est GFR ( Amer) 78.6 Est GFR (Non-Af Amer) 67.8 BUN/Creatinine Ratio 28.3 H Glucose 174 H Lactate Calcium 9.5 Magnesium 2.2 Total Bilirubin 1.0 AST 226 H ALT 372 H Alkaline Phosphatase 69 Troponin I High Sens 484.0 H* B-Natriuretic Peptide Total Protein 6.9 Albumin 4.0 Globulin 2.9 Albumin/Globulin Ratio 1.4 Urine Color Urine Appearance Urine pH Ur Specific [place] Urine Protein Urine Glucose (UA) Urine Ketones Urine Blood Urine Nitrite Urine Bilirubin Urine Urobilinogen Ur Leukocyte Esterase Urine WBC (Auto) Urine RBC (Auto) U Hyaline Cast (Auto) U Epithel Cells (Auto) Urine Bacteria (Auto) Adenovirus (PCR) B. pertussis DNA (PCR) B.parapertussis DNA PCR C. pneumoniae DNA (PCR) Coronavirus OC43 (PCR) Coronavirus HKU1 (PCR) Coronavirus 229E (PCR) SARS-CoV-2 (PCR) Coronavirus NL63 (PCR) Human Metapneumovir PCR Influenza Type A (PCR) Influenza Type B (PCR) M. pneumoniae (PCR) Parainfluenza 1 (PCR) Parainfluenza 2 (PCR) Parainfluenza 3 (PCR) Parainfluenza 4 (PCR) RSV (PCR) Entero/Rhino (PCR) 06/10/23 06/10/23 06/10/23 13:16 13:32 13:33 WBC RBC Hgb Hct MCV MCH MCHC RDW Std Deviation RDW Coeff of Belen Plt Count MPV Immature Gran % (Auto) Neut % (Auto) Lymph % (Auto) Republic % (Auto) Eos % (Auto) Baso % (Auto) Neut # (Auto) Lymph # (Auto) Republic # (Auto) Eos # (Auto) Baso # (Auto) Immature Gran # (Auto) PT INR VBG pH 7.41 VBG pCO2 50 VBG pO2 45 VBG HCO3 32 VBG O2 Saturation 76.0 VBG Base Excess 5.8 Sodium Potassium Chloride Carbon Dioxide Anion Gap BUN Creatinine Est Cr Clr Drug Dosing Est GFR ( Amer) Est GFR (Non-Af Amer) BUN/Creatinine Ratio Glucose Lactate Calcium Magnesium Total Bilirubin AST ALT Alkaline Phosphatase Troponin I High Sens B-Natriuretic Peptide 51 Total Protein Albumin Globulin Albumin/Globulin Ratio Urine Color Urine Appearance Urine pH Ur Specific [place] Urine Protein Urine Glucose (UA) Urine Ketones Urine Blood Urine Nitrite Urine Bilirubin Urine Urobilinogen Ur Leukocyte Esterase Urine WBC (Auto) Urine RBC (Auto) U Hyaline Cast (Auto) U Epithel Cells (Auto) Urine Bacteria (Auto) Adenovirus (PCR) Not Detected B. pertussis DNA (PCR) Not Detected B.parapertussis DNA PCR Not Detected C. pneumoniae DNA (PCR) Not Detected Coronavirus OC43 (PCR) Not Detected Coronavirus HKU1 (PCR) Not Detected Coronavirus 229E (PCR) Not Detected SARS-CoV-2 (PCR) Not Detected Coronavirus NL63 (PCR) Not Detected Human Metapneumovir PCR Not Detected Influenza Type A (PCR) Not Detected Influenza Type B (PCR) Not Detected M. pneumoniae (PCR) Not Detected Parainfluenza 1 (PCR) Not Detected Parainfluenza 2 (PCR) Not Detected Parainfluenza 3 (PCR) Not Detected Parainfluenza 4 (PCR) Not Detected RSV (PCR) Not Detected Entero/Rhino (PCR) Not Detected 06/10/23 06/10/23 06/10/23 13:33 13:53 15:34 WBC RBC Hgb Hct MCV MCH MCHC RDW Std Deviation RDW Coeff of Bel[place] Plt Count MPV Immature Gran % (Auto) Neut % (Auto) Lymph % (Auto) Republic % (Auto) Eos % (Auto) Baso % (Auto) Neut # (Auto) Lymph # (Auto) [place] # (Auto) Eos # (Auto) Baso # (Auto) Immature Gran # (Auto) PT INR VBG pH VBG pCO2 VBG pO2 VBG HCO3 VBG O2 Saturation VBG Base Excess Sodium Potassium Chloride Carbon Dioxide Anion Gap BUN Creatinine Est Cr Clr Drug Dosing Est GFR ( Amer) Est GFR (Non-Af Amer) BUN/Creatinine Ratio Glucose Lactate 2.3 H* Calcium Magnesium Total Bilirubin AST ALT Alkaline Phosphatase Troponin I High Sens 375.0 H* D B-Natriuretic Peptide Total Protein Albumin Globulin Albumin/Globulin Ratio Urine Color Yellow Urine Appearance Clear Urine pH 7.0 Ur Specific [place] 1.020 Urine Protein Trace H Urine Glucose (UA) Negative Urine Ketones Negative Urine Blood 2+ H Urine Nitrite Negative Urine Bilirubin Negative Urine Urobilinogen Negative Ur Leukocyte Esterase Negative Urine WBC (Auto) 1-5 Urine RBC (Auto) 0-4 U Hyaline Cast (Auto) 1-5 U Epithel Cells (Auto) 5-10 H Urine Bacteria (Auto) Negative Adenovirus (PCR) B. pertussis DNA (PCR) B.parapertussis DNA PCR C. pneumoniae DNA (PCR) Coronavirus OC43 (PCR) Coronavirus HKU1 (PCR) Coronavirus 229E (PCR) SARS-CoV-2 (PCR) Coronavirus NL63 (PCR) Human Metapneumovir PCR Influenza Type A (PCR) Influenza Type B (PCR) M. pneumoniae (PCR) Parainfluenza 1 (PCR) Parainfluenza 2 (PCR) Parainfluenza 3 (PCR) Parainfluenza 4 (PCR) RSV (PCR) Entero/Rhino (PCR) 06/10/23 15:34 WBC RBC Hgb Hct MCV MCH MCHC RDW Std Deviation RDW Coeff of Belen Plt Count MPV Immature Gran % (Auto) Neut % (Auto) Lymph % (Auto) Republic % (Auto) Eos % (Auto) Baso % (Auto) Neut # (Auto) Lymph # (Auto) [place] # (Auto) Eos # (Auto) Baso # (Auto) Immature Gran # (Auto) PT INR VBG pH VBG pCO2 VBG pO2 VBG HCO3 VBG O2 Saturation VBG Base Excess Sodium Potassium Chloride Carbon Dioxide Anion Gap BUN Creatinine Est Cr Clr Drug Dosing Est GFR ( Amer) Est GFR (Non-Af Amer) BUN/Creatinine Ratio Glucose Lactate 1.8 Calcium Magnesium Total Bilirubin AST ALT Alkaline Phosphatase Troponin I High Sens B-Natriuretic Peptide Total Protein Albumin Globulin Albumin/Globulin Ratio Urine Color Urine Appearance Urine pH Ur Specific [place] Urine Protein Urine Glucose (UA) Urine Ketones Urine Blood Urine Nitrite Urine Bilirubin Urine Urobilinogen Ur Leukocyte Esterase Urine WBC (Auto) Urine RBC (Auto) U Hyaline Cast (Auto) U Epithel Cells (Auto) Urine Bacteria (Auto) Adenovirus (PCR) B. pertussis DNA (PCR) B.parapertussis DNA PCR C. pneumoniae DNA (PCR) Coronavirus OC43 (PCR) Coronavirus HKU1 (PCR) Coronavirus 229E (PCR) SARS-CoV-2 (PCR) Coronavirus NL63 (PCR) Human Metapneumovir PCR Influenza Type A (PCR) Influenza Type B (PCR) M. pneumoniae (PCR) Parainfluenza 1 (PCR) Parainfluenza 2 (PCR) Parainfluenza 3 (PCR) Parainfluenza 4 (PCR) RSV (PCR) Entero/Rhino (PCR) Diagnostic Findings Chest CTA 06/10/23 13:10 CT angio chest PE protocol CT DOSE: 819.02 mGy.cm HISTORY: 78 years-old Male with Dyspnea; hypoxia. Acute shortness of breath with hypoxia TECHNIQUE: Multiple CTA images of the chest were obtained after the intravenous administration of 121 ml Optiray. Coronal and sagittal MIPS were obtained from the axial data set and were submitted for review. All measurements were obtained according to NASCET criteria. A dose lowering technique was utilized adhering to the principles of ALARA. COMPARISON: Chest radiograph of same day FINDINGS: CTA: Moderate cardiomegaly. No pericardial effusion. Extensive coronary artery calcifications. Atherosclerosis of the aorta. Right IJ is a port catheter distal tip terminates in the inferior SVC. Left heart structures are not well opacified and therefore difficult to evaluate. Reflux of contrast into the IVC. Suboptimal opacification of the pulmonary artery secondary to contrast bolus timing. No pulmonary emboli identified. CT CHEST: No thyroid nodule identified. No lymphadenopathy. No pneumothorax, pleural effusion or overt pulmonary edema. Mild linear subsegmental bibasilar atelectasis. Mild bronchial wall thickening. No suspicious pulmonary nodules or mass is identified. Scattered punctate calcified pulmonary granulomata of the lung bases. Mild bibasilar mucous plugging. No acute process of the imaged upper abdomen. Distended gallbladder. Hepatic steatosis. Unremarkable soft tissues. No acute fracture. IMPRESSION: 1. Limited exam as above. There is cardiomegaly without pulmonary emboli identified. 2. No pleural effusion or airspace consolidation to suggest pneumonia. 3. Bronchial wall thickening suggestive of bronchitis or reactive airway disease. 4. Bibasilar mucous plugging with atelectasis. 5. Hepatic steatosis. 6. Distended gallbladder. ACT 112: Negative or not required by law. The above report was generated using voice recognition software. It may contain grammatical, syntax or spelling errors. Electronically signed by: Flaquito Clemente M.D. 06/10/2023 3:27 PM Chest X-Ray 06/10/23 13:10 XR chest 1V portable HISTORY: 78 years-old Male Dyspnea acute shortness of breath COMPARISON: None TECHNIQUE: AP view the chest FINDINGS: Cardiac silhouette is enlarged. Right IJ [id number] catheter. Pulmonary vascular congestion. Hypoinflation with bibasilar densities. No pneumothorax. Degenerative changes of the shoulders and spine. IMPRESSION: 1. Cardiomegaly with pulmonary vascular congestion. 2. Hypoinflation with mild bibasilar opacities favoring atelectasis. ACT 112: Negative or not required by law. The above report was generated using voice recognition software. It may contain grammatical, syntax or spelling errors. Electronically signed by: Flaquito Clemente M.D. 06/10/2023 1:44 PM Medications Administered Discontinued Medications Cefepime HCl (Maxipime) 2,000 mg in 20 mls @ 5 mls/min IV NOW STA; Protocol Stop: 06/10/23 13:48 Last Admin: 06/10/23 14:09 Dose: 5 mls/min Documented By: NAKIA Vancomycin HCl 2,750 mg/ (Sodium Chloride) 555 mls @ 200 mls/hr IV NOW ONE Stop: 06/10/23 16:37 Last Admin: 06/10/23 14:23 Dose: 200 mls/hr Documented By: NAKIA Ioversol (Optiray 320 500ml) 121 ml IV ONCE ONE Stop: 06/10/23 14:52 Last Admin: 06/10/23 14:51 Dose: 121 ml Documented By: EDK Supervising Physician Co-Signing Physician Notes 78 year old man with metastatic melanoma, recent drug-induced hepatitis and rhabdomyolysis, prediabetes, SANDRINE on CPAP, dyslipidemia, 1st degree AV block and anxiety who was referred to the ED today from his PCP office where he presented for evaluation of worsening cough and shortness of breath in the past few weeks. On exam, General: Obese in no distress Eyes: PERRL, conjunctivae normal, not pale, anicteric sclerae, EOM intact bilaterally ENMT: External ear and nose normal, oropharynx normal. Some hearing deficits+ (hearing aide in situ) Respiratory: Normal respiratory effort, no respiratory distress, diminished breath sounds lung bases Cardiovascular: RRR S1 S2 Gastrointestinal (Abdomen): Abdomen is not distended, soft, non-tender to palpation, no guarding, no palpable hepatosplenomegaly, normal bowel sounds Musculoskeletal: +Pedal edema Neurologic: Alert and oriented x 3, No focal weakness, sensation grossly intact Acute respiratory failure with hypoxia CT PE did not show PE but noted mucus plugs and atelectasis Possible pneumonitis. May be related to Keytruda Leukocytosis likely related to steroid Continue prednisone tapering patient was already on No antibiotics for now except any signs of infection Elevated trop Discussed with Java Manager Hep gtt for now IV lasix x 1 dose Incentive spirometry and flutter
[2023-06-10] MEDS: HEPARIN SODIUM/DEXTROSE 25,000 UNITS/500 ML BAG IV SCH (17:44)
--- NOTE | 2023-06-10 17:57 | Cardiology Consultation ---
Date of Consultation June 10, 2023 Assessment & Plan (1) Acute hypoxic respiratory failure: (2) Demand ischemia of myocardium: (3) Aortic stenosis: -Per discussion with patient, his symptoms certainly seem to correlate with recent introduction of Keytruda. This medication is known to have the potential side effects of a myocarditis as well as pneumonitis. Echocardiogram performed 3 days ago in routine follow-up of his history of moderate aortic stenosis revealed normal to hyperdynamic left ventricular systolic function, and the gradients across the aortic stenosis appeared relatively unchanged compared to 2021, and therefore I am not convinced that the change in the patient's condition is due to his aortic stenosis. Patient had already been placed on a course of corticosteroids as an outpatient, and his CPK has been trending down as an outpatient. Initial EKG performed today 06/10/2023 at 1311 revealed sinus rhythm at 75 bpm with first-degree AV block, and age undetermined inferior infarct pattern cannot be excluded or an age-indeterminate anterior infarct pattern due to poor R wave progression. Subtle ST segment depression noted in the lateral leads on the EKG. On repeat tracing performed at 1739 while on supplemental oxygen the repolarization changes have normalized. Patient is known to have significant coronary artery calcification on his CT chest. Given the relatively mild elevation in the high-sensitivity troponin, I think it is reasonable to start unfractionated heparin. Emergent coronary angiography is not felt to be necessary. I agree with trial of IV furosemide x1 this evening with plans to reassess volume status tomorrow. Consider ongoing treatment for bronchitis/pneumonitis. History of Present Illness History of Present Illness Ralf Larson is a 78-year-old male seen in cardiology consultation per the request of Dr Goldstein of emergency medicine. Patient seen by the undersigned in the emergency department, room A10. The patient established with Dr. Sharma of our practice in April, having moved to the area from [place]. He has a history of aortic stenosis. 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 PET scan in April, revealed focal metabolic activity of the frontal scalp. MRI of the brain performed April, and negative for metastatic disease. Patient received his first dose of Keytruda on 05/06/2023. He was due for a second dose on 06/06/2023, however in the meantime, laboratory studies dating back to 05/27/2023 revealed severe elevation in the CPK of 12,192. Echocardiogram performed in follow-up of the patient's history of aortic stenosis on 06/07/2023 with patient unable to lie supine for the test at that time LVEF in the range of 65-69%, moderate aortic valve calcification observed. Moderate to borderline severe aortic stenosis felt to be present with peak continuous-wave Doppler velocity gradient of 3.6 m/s, unchanged compared to April,. The right ventricular chamber size and systolic function were reportedly normal. Grade 1 diastolic dysfunction observed. No pericardial effusion, no evidence of pulmonary hypertension. Over the last 4 weeks the patient has noted progressive shortness of breath. A proBNP screen had been performed on 05/30/2023 was mildly elevated 276. Patient presented to primary care provider, Dr. Stephens ,today as an acute visit due to concerns of shortness of breath and was found to have hypoxia with pulse oximetry in the 60s on room air. He was subsequently referred to the emergency department for further evaluation. At present, he is comfortable, pulse oximetry 94% on 3 L nasal cannula. He is sitting at 35 degrees. Patient without any chest discomfort. Cardiology consulted due to shortness of breath and mild elevation in the high- sensitivity troponin with measurements of 484 PG per mL and 375 PG per mL as drawn 2 hours apart. Allergies Allergy/AdvReac Type Severity Reaction Status Date / Time No Known Allergies Allergy Verified 11/23/21 06:14 Home Medications Medication Instructions Recorded Confirmed Type amlodipine 10 mg tablet 10 mg PO QAM 11/18/21 06/10/23 History aspirin 81 mg tablet,delayed 81 mg PO QA 11/18/21 06/10/23 History release atorvastatin 10 mg tablet 0 mg PO HS 11/18/21 06/10/23 History cholecalciferol (vitamin D3) 50 5,000 unit PO QAM 11/18/21 06/10/23 History mcg (2,000 unit) capsule (Vitamin D3) finasteride 5 mg tablet 5 mg PO QAM 11/18/21 06/10/23 History hydrochlorothiazide 25 mg tablet 25 mg PO QAM 11/18/21 06/10/23 History losartan 100 mg tablet 100 mg PO QAM 11/18/21 06/10/23 History metoprolol tartrate 50 mg tablet 25 mg PO BID 11/18/21 06/10/23 History dulaglutide 1.5 mg/0.5 mL 1.5 mg subcut WK 06/10/23 06/10/23 History subcutaneous pen injector (Trulicity) omeprazole 20 mg capsule,delayed 20 mg PO QAM 06/10/23 06/10/23 History release prednisone 10 mg tablet See Rx Instructions .Route .COMPLEX 06/10/23 06/10/23 History sertraline 50 mg tablet 50 mg PO HS 06/10/23 06/10/23 History solifenacin 5 mg tablet (Vesicare) 5 mg PO DAILY 06/10/23 06/10/23 History sulfamethoxazole 800 1 tab PO . MON, TUE, Tue06/10/23 06/10/23 History mg-trimethoprim 160 mg tablet vitamin B complex 1 tab PO DAILY 06/10/23 06/10/23 History Patient History Medical History 1st degree AV block Benign essential tremor "BENIGN TREMOR" MOSTLY HANDS Borderline diabetes A1c 5.8% 03/2021 BPH loc w urin obs/LUTS Enlarged prostate Gouty arthritis History of abnormal electrocardiogram 2-3 YR AGO, TESTING DONE...DX HEART MURMUR History of colon polyps "MINOR" TO F/U IN 5-10 YRS HTN (hypertension) Hyperlipidemia Impaired renal function Moderate to severe aortic stenosis Sleep apnea CPAP SOB (shortness of breath) on exertion NOT WITH STAIRS, ON A HILL...WILL STOP AND RESOLVES WITH REST; ongoing x yrs without change or worsening Surgical History History of cataract surgery History of colonoscopy History of detached retina repair RIGHT History of tonsillectomy S/P tonsillectomy Family History Father Family history of diabetes mellitus Heart disease Grandfather (Maternal) Heart disease Social History Smoking Status: Never smoker Do You Dip or Chew Tobacco: No (HX IN COLLEGE 50 YR AGO); Hx Alcohol Use: Yes Alcohol type: wine Preferred Language: Maldivian Communication Ability: Effective Communication Ability Comment: PT [facility] Trimming Cutter Required: No Beliefs That Will Affect Care: None and Congregational Congregational Beliefs: SPIRITISM Current Living Situation: Spouse and Family Current Living Situation Comment: AND SON COMES HOME FOR LONG WEEKENDS EV [place] OTHER WEEK Feels Safe at Home: Yes Assistive Devices: CPAP and Hearing Aid - Bilateral Review of Systems Review of Systems: All systems reviewed & are unremarkable except as noted in HPI & below Physical Exam Constitutional: + ill appearing Respiratory: Auscultation: + diminished lung sounds (Coarse breath sounds at the bases) Cardiovascular: Rate/Rhythm: regular rate and regular rhythm Heart Sounds: + murmur (1/6 systolic murmur) Extremities: no edema Gastrointestinal (Abdomen): normal bowel sounds, soft, nontender, no hepatosplenomegaly Neurologic: PERRL, EOMI, accommodation nl, no face palsy, no dysarthria Results & Data Vital Signs (Past 12 Hours) Vital Signs Temp Pulse Pulse Resp BP BP Pulse Ox 06/10/23 17:48 81 18 178/97 H 94 06/10/23 17:04 78 20 176/106 H 94 06/10/23 15:35 81 24 154/85 H 94 06/10/23 13:23 86 L 06/10/23 13:23 06/10/23 13:17 77 06/10/23 13:01 36.5 C 81 24 147/86 H 83 L O2 Del Method O2 Flow Rate 06/10/23 17:48 Nasal Cannula 3 06/10/23 17:04 Nasal Cannula 3 06/10/23 15:35 Nasal Cannula 3 06/10/23 13:23 Room Air, Nasal Cannula 0 06/10/23 13:23 Nasal Cannula 2 06/10/23 13:17 06/10/23 13:01 Room Air Laboratory Results Cardiac Enzymes 06/10/23 06/10/23 06/10/23 Range/Units 13:16 13:16 15:34 AST 226 H (13-39) U/L Troponin I High Sens 484.0 H* 375.0 H* D (0-20) pg/ml B-Natriuretic Peptide 51 (0-100) pg/ml Coagulation 06/10/23 06/10/23 Range/Units 13:16 13:16 PT 11.7 (9.0-12.0) Seconds B-Natriuretic Peptide 51 (0-100) pg/ml CBC 06/10/23 Range/Units 13:16 WBC 22.42 H (4.8-10.8) K/ul RBC 5.43 (4.70-6.10) M/uL Hgb 16.7 (14.0-18.0) g/dl Hct 48.8 (42.0-52.0) % Plt Count 213 (130-400) K/uL Neut # (Auto) 19.52 H (1.40-6.50) K/uL Lymph # (Auto) 1.47 (1.20-3.40) K/uL [place] # (Auto) 1.10 H (0.11-0.59) K/uL Eos # (Auto) 0.03 (0.00-0.50) K/uL Baso # (Auto) 0.04 (0.00-0.20) K/uL Comprehensive Metabolic Panel 06/10/23 Range/Units 13:16 Sodium 138 (136-145) mmol/L Potassium 3.4 L (3.5-5.1) mmol/L Chloride 97 L (98-107) mmol/L Carbon Dioxide 33 H (21-32) mmol/L BUN 30 H (6-23) mg/dl Creatinine 1.06 (0.6-1.4) mg/dl Glucose 174 H (70-99(Fasting)) mg/dl Calcium 9.5 (8.6-10.3) mg/dl AST 226 H (13-39) U/L ALT 372 H (7-52) U/L Alkaline Phosphatase 69 (34-104) U/L Total Protein 6.9 (6.0-8.3) gm/dl Albumin 4.0 (3.4-5.0) gm/dl Intake and Output 06/10/23 06/10/23 06/10/23 06:59 14:59 22:59 Other: Weight 152.2 kg Weight Measurement Method Built in [facility] Patient Weight 06/11/23 06:59 Weight 152.2 kg Diagnostic Findings Summary of recent transthoracic echocardiogram performed as an outpatient 06/03/2023: The examination is adequate to evaluate the referral indication. Images are technically limited secondary to body habitus and upright position The left ventricular cavity size is normal. The LV wall thickness is moderately increased (concentric). The left ventricular wall motion is normal. The qualitative LV ejection fraction is 65-69% (normal). The left ventricular diastolic function is mildly abnormal (grade I). The aortic valve is moderately calcified. Moderate to borderline severe aortic valve stenosis is present. There is mild aortic insufficiency The aortic root and proximal ascending aorta are normal sized. There is moderate mitral annular calcification. Compared to prior study of May 04, 2022, there is no significant change. CT angiogram of the chest was performed in the emergency room 06/10/2023, the radiology report describes technically limited evaluation without pulmonary emboli No pleural effusion or airspace consolidation to suggest pneumonia Bronchial wall thickening suggestive of bronchitis or reactive airway disease Bibasilar mucous plugging with atelectasis Hepatosteatosis
[2023-06-10] MEDS ORDERED: POTASSIUM CHLORIDE CRTAB 20 MEQ TABCR PO STA (18:29)
[2023-06-10] MEDS ORDERED: FUROSEMIDE 40 MG/4 ML VIAL IV ONE (18:30)
[2023-06-10] MEDS ORDERED: ACETAMINOPHEN 325 MG TAB PO PRN (20:55)
[2023-06-10] MEDS: guaiFENesin 600 MG TABCR PO SCH (22:16)
[2023-06-10] MEDS: METOPROLOL TARTRATE 25 MG TAB PO SCH (22:16)
[2023-06-10] MEDS: SERTRALINE HCL 50 MG TABLET PO SCH (22:17)
--- NOTE | 2023-06-10 23:37 | Electrocardiogram Report ---
Test Reason : Blood Pressure : / mmHG Vent. Rate : 075 BPM Atrial Rate : 075 BPM P-R Int : 212 ms QRS Dur : 090 ms QT Int : 396 ms P-R-T Axes : 000 -47 -03 degrees QTc Int : 442 ms Sinus rhythm with marked sinus arrhythmia with 1st degree A-V block Left axis deviation Low voltage QRS Inferior infarct , age undetermined Cannot rule out Anterior infarct , age undetermined Abnormal ECG No previous ECGs available Confirmed by Heron Cook ([id number]) on 06/10/2023 11:36:51 PM Referred By: Confirmed By:Heron Cook
[2023-06-11] MEDS ORDERED: HEPARIN 100 UNIT/ML 5ML FLUSH FLUSH PRN (00:16)
[2023-06-11 01:06] LABS: Partial Thromboplastin Ratio > 4.9
[2023-06-11 01:44] LABS: Partial Thromboplastin Time > 139.0 Seconds (21.0-31.0)
[2023-06-11 04:05] LABS: Basophils # (auto) 0.05 K/uL (0.00-0.20); Basophils % (auto) 0.2 %; Eosinophils # (auto) 0.03 K/uL (0.00-0.50); Eosinophils % (auto) 0.1 %; Hematocrit (blood only) 46.6 % (42.0-52.0); Hemoglobin 15.8 g/dl (14.0-18.0); Immature Granulocytes # (auto) 0.18 K/uL (0.01-0.20); Immature Granulocytes % (auto) 0.8 %; Lymphocytes # (auto) 2.31 K/uL (1.20-3.40); Lymphocytes % (auto) 10.6 %; Mean Corpuscular Hemoglobin 30.6 pg (25.0-34.0); Mean Corpuscular Hgb Conc 33.9 g/dL (32.0-36.0); Mean Corpuscular Volume 90.1 fL (80.0-100.0); Mean Platelet Volume 9.3 fL (9.4-12.4); Monocytes # (auto) 1.46 K/uL (0.11-0.59); Monocytes % (auto) 6.7 %; Neutrophils # (auto) 17.83 K/uL (1.40-6.50); Neutrophils % (auto) 81.6 %; Platelet Count 183 K/uL (130-400); RDW Coefficient of Variation 13.7 % (11.5-14.5); RDW Standard Deviation 45.9 fL (36.4-46.3); Red Blood Count 5.17 M/uL (4.70-6.10); White Blood Count 21.86 K/ul (4.8-10.8)
[2023-06-11 04:16] LABS: Calcium 8.8 mg/dl (8.6-10.3); Creatinine Clr Calc Pharmacy 97.4 ml/min; Est GFR (African American) 92.1 ml/min; Est GFR (Non-African American) 79.5 ml/min; Potassium 3.6 mmol/L (3.5-5.1)
[2023-06-11 04:29] LABS: Albumin Level 3.5 gm/dl (3.4-5.0); Bilirubin Direct 0.1 mg/dl (0-0.2); Bilirubin,Total 0.8 mg/dl (0.2-1.0); Magnesium 2.1 mg/dl (1.7-2.4); Troponin I High Sensitivity 405.8 pg/ml (0-20)
[2023-06-11 04:50] LABS: Partial Thromboplastin Ratio 2.9
[2023-06-11 05:13] LABS: Partial Thromboplastin Time 82.2 Seconds (21.0-31.0)
--- NOTE | 2023-06-11 07:41 | Electrocardiogram Report ---
Test Reason : Blood Pressure : / mmHG Vent. Rate : 080 BPM Atrial Rate : 080 BPM P-R Int : 202 ms QRS Dur : 082 ms QT Int : 370 ms P-R-T Axes : 022 -58 004 degrees QTc Int : 426 ms Sinus rhythm with Premature supraventricular complexes and Premature ventricular complexes or Fusion complexes 1st degree AV block Left axis deviation Low voltage QRS Inferior infarct (cited on or before 10-JUN-2023) Possible Anterolateral infarct (cited on or before 10-JUN-2023) Abnormal ECG Confirmed by Jose Philip ([id number]) on 06/11/2023 7:41:06 AM Referred By: REFERRED SELF Confirmed By:Neil Philip
[2023-06-11] MEDS: METOPROLOL TARTRATE 25 MG TAB PO SCH ×2 (08:38→20:21)
[2023-06-11] MEDS: predniSONE 50 MG TAB PO SCH (08:38)
[2023-06-11] MEDS: VITAMIN B COMPLEX TAB PO SCH (08:38)
[2023-06-11] MEDS: guaiFENesin 600 MG TABCR PO SCH ×2 (08:38→20:22)
[2023-06-11] MEDS: FINASTERIDE 5 MG TAB PO SCH (08:39)
[2023-06-11] MEDS: ASPIRIN 81 MG ECTAB PO SCH (08:39)
[2023-06-11] MEDS: LOSARTAN POTASSIUM 50 MG TAB PO SCH (08:39)
[2023-06-11] MEDS: CHOLECALCIFEROL 5,000 UNITS 125 MCG TAB PO SCH (08:39)
[2023-06-11] MEDS: amLODIPine BESYLATE 5 MG TAB PO SCH (08:39)
[2023-06-11] MEDS: PANTOprazole 40 MG TAB PO SCH (08:39)
--- NOTE | 2023-06-11 11:40 | Hospitalist Progress Note ---
Date of Service June 11, 2023 Assessment & Plan (1) Acute hypoxic respiratory failure: Plan: 78 y/o male with metastatic melanoma, recent drug-induced hepatitis and rhabdomyolysis, prediabetes, SANDRINE on CPAP, dyslipidemia, 1st degree AV block, and anxiety who was referred to the ED today from his PCP office where he presented for evaluation of worsening cough and shortness of breath. He was found to hypoxic and referred to the ED. In the ED, work-up revealed an elevated troponin and EKG with subtle ST segment depression in the lateral leads. He was placed on 3L of O2 with improvement in sats though still symptomatically short of breath. He was given cefepime and vanco x 1 in the ED. Repeat EKG on oxygen with improvement in prior changes. CTA chest was negative for PE but showed atelectasis and mucus plugging and atelectasisi Possible pneumonitis. May be related to Keytruda Leukocytosis likely related to steroid Procalcitonin<0.05 Continue current prednisone dose of 50 mg daily patient was already on. Defer additional taper to oncology No antibiotics for now Continue Incentive spirometry and flutter valve. Continue mucinex Wean oxygen as tolerated. Will need 2 step prior to dc (2) Demand ischemia of myocardium: Plan: Was on hep gtt Echocardiogram performed 3 days ago in routine follow-up of his history of moderate aortic stenosis revealed normal to hyperdynamic left ventricular systolic function and the gradients across the aortic stenosis appeared relatively unchanged compared to 2021 Cardiology eval and recs noted Hep gtt stopped (3) Metastatic melanoma: Plan: Continue outpatient follow up with [facility] Recent drug induced [place] [address] on 05/27/23, down to 2308 today AST is 168 today (was 226 yesterday) ALT is 310 today (was 376 yesterday) Monitor (4) BPH loc w urin obs/LUTS: Plan: Continue home proscar (5) Aortic stenosis: (6) Sleep apnea: Plan: CPAP with home settings ordered. (7) HTN (hypertension): Plan: Continue home losartan, metoprolol, amlodipine DVT ppx: hep sq Full code Get PT/OT eval I spent a total of 60 minutes coordinating, documenting and providing care for this patient excluding time spent in performance of separately billed services Admission and Anticipated Discharge Date Admission Date: June 10, 2023 Subjective Patient seen and examined Reports feeling a bit better today Still has cough and some shortness of breath Reports weakness Denied fever, chills, nausea, vomiting, abd pain, diarrhea, dysuria, freq, urgency Physical Exam 2 Constitutional: + well hydrated and + obese; no acute distress Eyes: PERRL, conjunctivae normal, anicteric sclerae ENMT: external ear and nose normal, oropharynx normal some hearing deficits Respiratory: normal respiratory effort; no respiratory distress improved air entry Cardiovascular: Rate/Rhythm: regular rate and regular rhythm S1 S2 Gastrointestinal (Abdomen): normal bowel sounds, soft, nontender, no hepatosplenomegaly Musculoskeletal: Pedal edema much improved compared to yesterday Neurologic: PERRL, EOMI, accommodation nl, no face palsy, no dysarthria Psychiatric: A+Ox3, euthymic affect Results & Data Results & Data Vital Signs (Past 12 Hours) Vital Signs Temp Pulse Pulse Resp BP Pulse Ox O2 Del Method 06/11/23 08:00 80 06/11/23 08:00 Nasal Cannula 06/11/23 07:46 36.4 C L 84 17 122/76 94 Room Air 06/11/23 04:24 36.4 C L 79 18 146/88 H 95 CPAP 06/11/23 02:09 84 25 H 93 06/10/23 23:50 36.5 C 77 18 152/96 H 95 CPAP O2 Flow Rate 06/11/23 08:00 06/11/23 08:00 06/11/23 07:46 06/11/23 04:24 06/11/23 02:09 4 06/10/23 23:50 Laboratory Results Abnormal lab results 06/10/23 06/10/23 06/10/23 Range/Units 13:16 13:16 13:33 WBC 22.42 H (4.8-10.8) K/ul RDW Std Deviation 46.5 H (36.4-46.3) fL MPV (9.4-12.4) fL Neut # (Auto) 19.52 H (1.40-6.50) K/uL [place] # (Auto) 1.10 H (0.11-0.59) K/uL Immature Gran # (Auto) 0.26 H (0.01-0.20) K/uL APTT (21.0-31.0) Seconds Potassium 3.4 L (3.5-5.1) mmol/L Chloride 97 L (98-107) mmol/L Carbon Dioxide 33 H (21-32) mmol/L BUN 30 H (6-23) mg/dl BUN/Creatinine Ratio 28.3 H (10-20) Glucose 174 H (70-99(Fasting)) mg/dl Lactate 2.3 H* (0.4-2.0) mmol/L AST 226 H (13-39) U/L ALT 372 H (7-52) U/L Total Creatine Kinase (30-223) U/L Troponin I High Sens 484.0 H* (0-20) pg/ml Urine Protein (Negative) Urine Blood (Negative) U Epithel Cells (Auto) (0-5) /lpf 06/10/23 06/10/23 06/10/23 Range/Units 13:53 15:34 21:37 WBC (4.8-10.8) K/ul RDW Std Deviation (36.4-46.3) fL MPV (9.4-12.4) fL Neut # (Auto) (1.40-6.50) K/uL [place] # (Auto) (0.11-0.59) K/uL Immature Gran # (Auto) (0.01-0.20) K/uL APTT (21.0-31.0) Seconds Potassium (3.5-5.1) mmol/L Chloride (98-107) mmol/L Carbon Dioxide (21-32) mmol/L BUN (6-23) mg/dl BUN/Creatinine Ratio (10-20) Glucose (70-99(Fasting)) mg/dl Lactate (0.4-2.0) mmol/L AST (13-39) U/L ALT (7-52) U/L Total Creatine Kinase (30-223) U/L Troponin I High Sens 375.0 H* D 372.2 H* (0-20) pg/ml Urine Protein Trace H (Negative) Urine Blood 2+ H (Negative) U Epithel Cells (Auto) 5-10 H (0-5) /lpf 06/11/23 06/11/23 06/11/23 Range/Units 00:03 03:28 03:28 WBC 21.86 H (4.8-10.8) K/ul RDW Std Deviation (36.4-46.3) fL MPV 9.3 L (9.4-12.4) fL Neut # (Auto) 17.83 H (1.40-6.50) K/uL [place] # (Auto) 1.46 H (0.11-0.59) K/uL Immature Gran # (Auto) (0.01-0.20) K/uL APTT > 139.0 H* (21.0-31.0) Seconds Potassium (3.5-5.1) mmol/L Chloride (98-107) mmol/L Carbon Dioxide (21-32) mmol/L BUN 26 H (6-23) mg/dl BUN/Creatinine Ratio 28.0 H (10-20) Glucose 132 H (70-99(Fasting)) mg/dl Lactate (0.4-2.0) mmol/L AST 168 H (13-39) U/L ALT 310 H (7-52) U/L Total Creatine Kinase 2308 H (30-223) U/L Troponin I High Sens 405.8 H* (0-20) pg/ml Urine Protein (Negative) Urine Blood (Negative) U Epithel Cells (Auto) (0-5) /lpf 06/11/23 Range/Units 03:28 WBC (4.8-10.8) K/ul RDW Std Deviation (36.4-46.3) fL MPV (9.4-12.4) fL Neut # (Auto) (1.40-6.50) K/uL [place] # (Auto) (0.11-0.59) K/uL Immature Gran # (Auto) (0.01-0.20) K/uL APTT 82.2 H* (21.0-31.0) Seconds Potassium (3.5-5.1) mmol/L Chloride (98-107) mmol/L Carbon Dioxide (21-32) mmol/L BUN (6-23) mg/dl BUN/Creatinine Ratio (10-20) Glucose (70-99(Fasting)) mg/dl Lactate (0.4-2.0) mmol/L AST (13-39) U/L ALT (7-52) U/L Total Creatine Kinase (30-223) U/L Troponin I High Sens (0-20) pg/ml Urine Protein (Negative) Urine Blood (Negative) U Epithel Cells (Auto) (0-5) /lpf
[2023-06-11 12:24] LABS: Partial Thromboplastin Ratio 2.1
[2023-06-11 12:30] LABS: Partial Thromboplastin Time 59.5 Seconds (21.0-31.0)
[2023-06-11] MEDS: HEPARIN SODIUM/DEXTROSE 25,000 UNITS/500 ML BAG IV SCH (12:58)
--- NOTE | 2023-06-11 14:05 | Cardiology Progress Note ---
Date of Service June 11, 2023 Assessment & Plan (1) Acute hypoxic respiratory failure: (2) Demand ischemia of myocardium: (3) Aortic stenosis: Plan: I suspect current symptoms/presentation related to treatment with Keytruda. As previously noted, medication is known to have potential side effect of myocarditis or pneumonitis. Echocardiogram performed 3 days ago in routine follow-up of his history of moderate aortic stenosis revealed normal to hyperdynamic left ventricular systolic function, and the gradients across the aortic stenosis appeared relatively unchanged compared to 2021. Patient had already been placed on a course of corticosteroids as an outpatient, and his CPK has been trending down as an outpatient. Elevated troponin likely secondary to hypoxia. Ongoing treatment for bronchitis/pneumonitis as per hospitalist. IV heparin may be discontinued. DVT prophylaxis as per hospitalist. Admission and Anticipated Discharge Date Admission Date: June 10, 2023 Subjective Patient seen and examined at the bedside. Telemetry reveals sinus rhythm in the 70s. Denies chest discomfort. Dyspnea unchanged. Oxygen saturation above 90% on 4 L nasal cannula. No orthopnea, PND, or edema. Review of Systems Review of Systems: All systems reviewed & are unremarkable except as noted in Subjective Physical Exam Constitutional: well nourished; no acute distress Respiratory: no respiratory distress and no labored breathing Auscultation: + diminished lung sounds (Bases bilateral) and + rhonchi (Coarse breath sounds) Cardiovascular: Rate/Rhythm: regular rate and regular rhythm Heart Sounds: normal S1, normal S2 and + murmur (1/6 systolic ejection murmur) Vessels: no JVD Extremities: no edema Gastrointestinal (Abdomen): Inspection/Auscultation: normal bowel sounds; abdomen not distended Percussion/Palpation: abdomen soft; abdomen nontender, no guarding and abdomen not rigid Neurologic: CN's II-XI intact bilaterally and moves all extremities; no focal motor deficits Results & Data Vital Signs (Past 12 Hours) Vital Signs Temp Pulse Pulse Resp BP Pulse Ox O2 Del Method 06/11/23 11:59 36.9 C 78 18 150/90 H 93 Nasal Cannula 06/11/23 08:00 80 06/11/23 08:00 Nasal Cannula 06/11/23 07:46 36.4 C L 84 17 122/76 94 Room Air 06/11/23 04:24 36.4 C L 79 18 146/88 H 95 CPAP 06/11/23 02:09 84 25 H 93 O2 Flow Rate 06/11/23 11:59 4 06/11/23 08:00 06/11/23 08:00 06/11/23 07:46 06/11/23 04:24 06/11/23 02:09 4 Laboratory Results Cardiac Enzymes 06/10/23 06/10/23 06/10/23 Range/Units 13:16 13:16 15:34 AST (13-39) U/L Troponin I High Sens 484.0 H* 375.0 H* D (0-20) pg/ml B-Natriuretic Peptide 51 (0-100) pg/ml 06/10/23 06/11/23 Range/Units 21:37 03:28 AST 168 H (13-39) U/L Troponin I High Sens 372.2 H* 405.8 H* (0-20) pg/ml B-Natriuretic Peptide (0-100) pg/ml Coagulation 06/10/23 06/10/23 06/11/23 Range/Units 13:16 13:16 00:03 PT 11.7 (9.0-12.0) Seconds APTT > 139.0 H* (21.0-31.0) Seconds B-Natriuretic Peptide 51 (0-100) pg/ml 06/11/23 06/11/23 Range/Units 03:28 11:16 PT (9.0-12.0) Seconds APTT 82.2 H* 59.5 H* (21.0-31.0) Seconds B-Natriuretic Peptide (0-100) pg/ml CBC 06/11/23 Range/Units 03:28 WBC 21.86 H (4.8-10.8) K/ul RBC 5.17 (4.70-6.10) M/uL Hgb 15.8 (14.0-18.0) g/dl Hct 46.6 (42.0-52.0) % Plt Count 183 (130-400) K/uL Neut # (Auto) 17.83 H (1.40-6.50) K/uL Lymph # (Auto) 2.31 (1.20-3.40) K/uL [place] # (Auto) 1.46 H (0.11-0.59) K/uL Eos # (Auto) 0.03 (0.00-0.50) K/uL Baso # (Auto) 0.05 (0.00-0.20) K/uL Comprehensive Metabolic Panel 06/11/23 Range/Units 03:28 Sodium 137 (136-145) mmol/L Potassium 3.6 (3.5-5.1) mmol/L Chloride 100 (98-107) mmol/L Carbon Dioxide 30 (21-32) mmol/L BUN 26 H (6-23) mg/dl Creatinine 0.93 (0.6-1.4) mg/dl Glucose 132 H (70-99(Fasting)) mg/dl Calcium 8.8 (8.6-10.3) mg/dl Direct Bilirubin 0.1 (0-0.2) mg/dl AST 168 H (13-39) U/L ALT 310 H (7-52) U/L Alkaline Phosphatase 63 (34-104) U/L Total Protein 6.0 (6.0-8.3) gm/dl Albumin 3.5 (3.4-5.0) gm/dl Intake and Output 06/10/23 06/11/23 06/11/23 22:59 06:59 14:59 Intake Total 305.867 / 305.867 194.133 / 194.133 Output Total 300 / 301 / Balance -300 / 4.867 304.867 / 4.867 194.133 / 194.133 Intake: IV 305.867 / 305.867 194.133 / 194.133 Heparin Sodium/Dextrose 25,000 305.867 / 305.867 194.133 / 194.133 units In 500 ml @ 1,850 UNITS/ HR 37 mls/hr IV .[id number] [facility] Rx #:[id number] Output: Urine 300 / 300 # Bowel Movements Other: # Unmeasured Voids 1 Weight 152.2 kg 150.252 kg Weight Measurement Method Built in [facility] Built in [facility]
[2023-06-11] MEDS: SERTRALINE HCL 50 MG TABLET PO SCH (20:21)
[2023-06-11] MEDS: HEPARIN SOD 5,000 UNIT/0.5 ML VIAL SQ SCH (23:15)
[2023-06-12] MEDS: HEPARIN SOD 5,000 UNIT/0.5 ML VIAL SQ SCH ×3 (05:43→22:37)
[2023-06-12 06:37] LABS: Hematocrit (blood only) 47.1 % (42.0-52.0); Hemoglobin 15.9 g/dl (14.0-18.0); Mean Corpuscular Hemoglobin 30.8 pg (25.0-34.0); Mean Corpuscular Hgb Conc 33.8 g/dL (32.0-36.0); Mean Corpuscular Volume 91.1 fL (80.0-100.0); Mean Platelet Volume 9.6 fL (9.4-12.4); Platelet Count 179 K/uL (130-400); RDW Standard Deviation 47.1 fL (36.4-46.3); Red Blood Count 5.17 M/uL (4.70-6.10); White Blood Count 22.91 K/ul (4.8-10.8)
[2023-06-12 07:11] LABS: Albumin Globulin Ratio 1.4 (0.9-2); Albumin Level 3.6 gm/dl (3.4-5.0); BUN Creatinine Ratio 35.1 (10-20); Bilirubin,Total 0.8 mg/dl (0.2-1.0); Est GFR (African American) 87.5 ml/min; Est GFR (Non-African American) 75.5 ml/min; Globulin 2.6 gm/dl (2.5-4.0); Magnesium 2.2 mg/dl (1.7-2.4); Phosphorus 3.5 mg/dl (2.5-4.9); Potassium 3.6 mmol/L (3.5-5.1); Total Protein 6.2 gm/dl (6.0-8.3)
[2023-06-12] MEDS: VITAMIN B COMPLEX TAB PO SCH (08:22)
[2023-06-12] MEDS: amLODIPine BESYLATE 5 MG TAB PO SCH (08:22)
[2023-06-12] MEDS: METOPROLOL TARTRATE 25 MG TAB PO SCH ×2 (08:22→20:36)
[2023-06-12] MEDS: guaiFENesin 600 MG TABCR PO SCH ×2 (08:22→20:35)
[2023-06-12] MEDS: LOSARTAN POTASSIUM 50 MG TAB PO SCH (08:22)
[2023-06-12] MEDS: predniSONE 50 MG TAB PO SCH (08:22)
[2023-06-12] MEDS: ASPIRIN 81 MG ECTAB PO SCH (08:23)
[2023-06-12] MEDS: FINASTERIDE 5 MG TAB PO SCH (08:23)
[2023-06-12] MEDS: PANTOprazole 40 MG TAB PO SCH (08:23)
[2023-06-12] MEDS: CHOLECALCIFEROL 5,000 UNITS 125 MCG TAB PO SCH (08:23)
--- NOTE | 2023-06-12 13:56 | Cardiology Progress Note ---
Date of Service June 12, 2023 Assessment & Plan (1) Acute hypoxic respiratory failure: (2) Demand ischemia of myocardium: (3) Aortic stenosis: Plan: I suspect current symptoms/presentation related to treatment with Keytruda. As previously noted, medication is known to have potential side effect of myocarditis and/or pneumonitis. Echocardiogram demonstrating moderate aortic stenosis and normal to hyperdynamic left ventricular systolic function. Gradien ts across the aortic valve appeared relatively unchanged compared to 202. Ongoing treatment (corticosteroids and antibiotics) for bronchitis/pneumonitis as per hospitalist. Elevated troponin likely secondary to hypoxia. IV heparin may be discontinued. DVT prophylaxis as per hospitalist. Cardiology will sign off. Please call with additional concerns/questions. Admission and Anticipated Discharge Date Admission Date: June 10, 2023 Subjective Patient seen and examined. SOB mildly improved. No chest discomfort. Denies orthopnea or PND. Telemetry reveals sinus rhythm in the 70-80's. Review of Systems 2 Review of Systems: All systems reviewed & are unremarkable except as noted in Subjective Physical Exam Constitutional: well nourished; no acute distress Respiratory: no respiratory distress and no labored breathing Auscultation: + diminished lung sounds (Bases bilateral) and + rhonchi (Coarse breath sounds) Cardiovascular: Rate/Rhythm: regular rate and regular rhythm Heart Sounds: normal S1, normal S2 and + murmur (1/6 systolic ejection murmur) Vessels: no JVD Extremities: no edema Gastrointestinal (Abdomen): Inspection/Auscultation: normal bowel sounds; abdomen not distended Percussion/Palpation: abdomen soft; abdomen nontender, no guarding and abdomen not rigid Neurologic: CN's II-XI intact bilaterally and moves all extremities; no focal motor deficits Results & Data Vital Signs (Past 12 Hours) Vital Signs Temp Pulse Pulse Resp BP Pulse Ox O2 Del Method 06/12/23 12:10 36.5 C 82 19 123/77 96 Room Air 06/12/23 07:00 76 06/12/23 07:00 Nasal Cannula 06/12/23 07:41 36.5 C 77 18 176/68 H 95 Nasal Cannula 06/12/23 04:18 36.3 C L 83 20 135/86 92 Room Air, CPAP O2 Flow Rate 06/12/23 12:10 06/12/23 07:00 06/12/23 07:00 2 06/12/23 07:41 3 10/29/23 04:18 Laboratory Results Cardiac Enzymes 06/12/23 Range/Units 06:01 AST 138 H (13-39) U/L CBC 06/12/23 Range/Units 06:01 WBC 22.91 H (4.8-10.8) K/ul RBC 5.17 (4.70-6.10) M/uL Hgb 15.9 (14.0-18.0) g/dl Hct 47.1 (42.0-52.0) % Plt Count 179 (130-400) K/uL Comprehensive Metabolic Panel 06/12/23 Range/Units 06:01 Sodium 137 (136-145) mmol/L Potassium 3.6 (3.5-5.1) mmol/L Chloride 99 (98-107) mmol/L Carbon Dioxide 30 (21-32) mmol/L BUN 34 H (6-23) mg/dl Creatinine 0.97 (0.6-1.4) mg/dl Glucose 126 H (70-99(Fasting)) mg/dl Calcium 9.0 (8.6-10.3) mg/dl AST 138 H (13-39) U/L ALT 282 H (7-52) U/L Alkaline Phosphatase 59 (34-104) U/L Total Protein 6.2 (6.0-8.3) gm/dl Albumin 3.6 (3.4-5.0) gm/dl Intake and Output 06/11/23 06/12/23 06/12/23 22:59 06:59 14:59 Intake Total 62 / 656.133 400 / 656.133 Output Total 125 / 425 Balance -63 / 231.133 400 / 231.133 Intake: IV 62 / 256.133 Heparin Sodium/Dextrose 25,000 62 / 256.133 units In 500 ml @ 1,850 UNITS/ HR 37 mls/hr IV .[id number] [facility] Rx #:[id number] Oral 400 / 400 Output: Urine 125 / 425 Other: # Unmeasured Voids 1 Weight 148.3 kg Weight Measurement Method Standing Scale
--- NOTE | 2023-06-12 19:40 | Hospitalist Progress Note ---
Date of Service June 12, 2023 Assessment & Plan (1) Acute hypoxic respiratory failure: Plan: 78 y/o male with metastatic melanoma, recent drug-induced hepatitis and rhabdomyolysis, prediabetes, SANDRINE on CPAP, dyslipidemia, 1st degree AV block, and anxiety who was referred to the ED from his PCP office where he presented for evaluation of worsening cough and shortness of breath. He was found to be hypoxic and referred to the ED. In the ED, work-up revealed an elevated troponin and EKG with subtle ST segment depression in the lateral leads. He was placed on 3L of O2 with improvement in sats though still symptomatically short of breath. He was given cefepime and vanco x 1 in the ED. Repeat EKG on oxygen with improvement in prior changes. CTA chest was negative for PE but showed atelectasis and mucus plugging and atelectasis Possible pneumonitis. May be related to Keytruda Leukocytosis likely related to steroid Procalcitonin<0.05 Continue current prednisone dose of 50 mg daily patient was already on. Defer additional taper to oncology (Dr. Maldonado) antibiotics were not continued initially on admission - will cont. w/ PO abx and monitor for poss. improvement Continue Incentive spirometry and flutter valve. Continue mucinex Wean oxygen as tolerated. Will need 2 step prior to dc (2) Demand ischemia of myocardium: Plan: Was on hep gtt Echocardiogram performed 3 days ago in routine follow-up of his history of moderate aortic stenosis revealed normal to hyperdynamic left ventricular systolic function and the gradients across the aortic stenosis appeared relatively unchanged compared to 2021 Cardiology eval and recs noted Hep gtt stopped (3) Metastatic melanoma: Plan: Continue outpatient follow up with Onco Recent drug induced [place] [address] on 05/27/23, down to 2308 today AST is 168 today (was 226 yesterday) ALT is 310 today (was 376 yesterday) Monitor (4) BPH loc w urin obs/LUTS: Plan: Continue home proscar (5) Aortic stenosis: (6) Sleep apnea: Plan: CPAP with home settings ordered. (7) HTN (hypertension): Plan: Continue home losartan, metoprolol, amlodipine Get PT/OT eval DVT ppx: hep sq Full code Admission and Anticipated Discharge Date Admission Date: June 10, 2023 Subjective Patient seen in follow up of shortness of breath, hypoxia Reports feeling a bit better today Still has cough and some shortness of breath Reports weakness Denied fever, chills, nausea, vomiting, abd pain, diarrhea, dysuria, freq, urgency cardiology also consulted and following Review of Systems Review of Systems: All systems reviewed & are unremarkable except as noted in Subjective Physical Exam Physical Exam: Constitutional:I + well hydrated an d + obese; no acut e distress Eyes: PERRL, conjunctiva e normal, anicteri c sclerae ENMT: external ear and n ose normal, oropha rynx normal some hearing deficits Respiratory: normal respiratory effort; no respir atory distress im proved air entry Cardiovascular:I Rate/Rhythm: regul ar rate and regula r rhythm S1 S2 Gastrointestinal ( Abdomen): normal bowel sound s, soft, nontender Musculoskeletal: Pedal edema impro pauline Neurologic: PERRL, EOMI, no fa ce palsy, no dysar thria, moves extre mities Psychiatric: A+Ox3, euthymic af fect Results & Data Results & Data Vital Signs (Past 12 Hours) Vital Signs Temp Pulse Resp BP Pulse Ox O2 Del Method O2 Flow Rate 06/12/23 19:25 36.4 C L 80 18 136/77 95 Room Air 06/12/23 15:40 36.5 C 80 18 94 Nasal Cannula 3 06/12/23 12:10 36.5 C 82 19 123/77 96 Room Air 06/12/23 07:41 36.5 C 77 18 176/68 H 95 Nasal Cannula 3 Laboratory Results 06/12/23 06/12/23 Range/Units 06:01 06:01 WBC 22.91 H (4.8-10.8) K/ul RBC 5.17 (4.70-6.10) M/uL Hgb 15.9 (14.0-18.0) g/dl Hct 47.1 (42.0-52.0) % MCV 91.1 (80.0-100.0) fL MCH 30.8 (25.0-34.0) pg MCHC 33.8 (32.0-36.0) g/dL RDW Std Deviation 47.1 H (36.4-46.3) fL RDW Coeff of Belen 14.0 (11.5-14.5) % Plt Count 179 (130-400) K/uL MPV 9.6 (9.4-12.4) fL Sodium 137 (136-145) mmol/L Potassium 3.6 (3.5-5.1) mmol/L Chloride 99 (98-107) mmol/L Carbon Dioxide 30 (21-32) mmol/L Anion Gap 8 (3-11) BUN 34 H (6-23) mg/dl Creatinine 0.97 (0.6-1.4) mg/dl Est Cr Clr Drug Dosing 92.0 ml/min Est GFR ( Amer) 87.5 ml/min Est GFR (Non-Af Amer) 75.5 ml/min BUN/Creatinine Ratio 35.1 H (10-20) Glucose 126 H (70-99(Fasting)) mg/dl Calcium 9.0 (8.6-10.3) mg/dl Phosphorus 3.5 (2.5-4.9) mg/dl Magnesium 2.2 (1.7-2.4) mg/dl Total Bilirubin 0.8 (0.2-1.0) mg/dl AST 138 H (13-39) U/L ALT 282 H (7-52) U/L Alkaline Phosphatase 59 (34-104) U/L Total Protein 6.2 (6.0-8.3) gm/dl Albumin 3.6 (3.4-5.0) gm/dl Globulin 2.6 (2.5-4.0) gm/dl Albumin/Globulin Ratio 1.4 (0.9-2) Medications Administered Current Inpatient Medications Acetaminophen (Acetaminophen 325 Mg Tab) 650 mg PO Q4H PRN PRN Reason: Pain or Fever Stop: 07/10/23 20:54 Amlodipine Besylate (Amlodipine Besylate 5 Mg Tab) 10 mg PO [facility] Stop: 07/11/23 08:59 Last Admin: 06/12/23 08:22 Dose: 10 mg Aspirin (Aspirin 81 Mg Ectab) 81 mg PO [facility] Stop: 07/11/23 08:59 Last Admin: 06/12/23 08:23 Dose: 81 mg Finasteride (Finasteride 5 Mg Tab) 5 mg PO [facility] Stop: 07/11/23 08:59 Last Admin: 06/12/23 08:23 Dose: 5 mg Guaifenesin (Guaifenesin 600 Mg Tabcr) 1,200 mg PO Q12 [facility] Stop: 07/10/23 20:59 Last Admin: 06/12/23 08:22 Dose: 1,200 mg Heparin Sodium (Porcine) (Heparin 100 Unit/Ml 5ml Flush) 5 ml FLUSH PRN PRN PRN Reason: Flush Stop: 07/11/23 00:15 Last Admin: 06/12/23 10:36 Dose: 5 ml Heparin Sodium (Porcine) (Heparin Sod 5,000 Unit/0.5 Ml Vial) 5,000 units SQ Q8 ODIN Stop: 07/11/23 21:59 Last Admin: 06/12/23 15:08 Dose: Not Given Losartan Potassium (Losartan Potassium 50 Mg Tab) 100 mg PO QAM [facility] Stop: 07/11/23 08:59 Last Admin: 06/12/23 08:22 Dose: 100 mg Metoprolol Tartrate (Metoprolol Tartrate 25 Mg Tab) 25 mg PO BID [facility] Stop: 07/10/23 20:59 Last Admin: 06/12/23 08:22 Dose: 25 mg Pantoprazole Sodium (Pantoprazole 40 Mg Tab) 40 mg PO QAM [facility] Stop: 07/11/23 08:59 Last Admin: 06/12/23 08:23 Dose: 40 mg Polyethylene Glycol (Polyethylene (Miralax) 17 Gm Pack) 17 gm PO DAILY PRN PRN Reason: Constipation Stop: 07/11/23 20:49 Prednisone (Prednisone 50 Mg Tab) 50 mg PO DAILY [facility] Stop: 07/11/23 08:59 Last Admin: 06/12/23 08:22 Dose: 50 mg Sertraline HCl (Sertraline Hcl 50 Mg Tablet) 50 mg PO HS [facility] Stop: 07/10/23 20:59 Last Admin: 06/11/23 20:21 Dose: 50 mg Trimethoprim/Sulfamethoxazole (Sulfamethoxazole/Trimethoprim Ds 800/160mg Tab) 1 tab PO MoWeFr@0900 [facility] Stop: 07/13/23 08:59 Vitamin B Complex (Vitamin B Complex Tab) 1 tab PO DAILY [facility] Stop: 07/11/23 08:59 Last Admin: 06/12/23 08:22 Dose: 1 tab Vitamin D (Cholecalciferol 5,000 Units 125 Mcg Tab) 5,000 units PO QAM [facility] Stop: 07/11/23 08:59 Last Admin: 06/12/23 08:23 Dose: 5,000 units
[2023-06-12] MEDS: ADVANCED PROBIOTIC 1250 MG CAPSULE PO SCH (20:33)
[2023-06-12] MEDS: DOXYCYCLINE HYCLATE 100 MG CAP PO SCH (20:34)
[2023-06-12] MEDS: cefUROXime axetil 500 MG TAB PO SCH (20:34)
[2023-06-12] MEDS: SERTRALINE HCL 50 MG TABLET PO SCH (20:36)
[2023-06-12] MEDS: POLYETHYLENE (MIRALAX) 17 GM PACK PO PRN (20:55)
[2023-06-12 21:52] LABS: A calco-baum cmplx NotReported Not Detected (NotDetected); Bact fragilis Not Reported Not Detected (NotDetected); C auris Not Reported Not Detected (NotDetected); Calbicans Not Reported Not Detected (NotDetected); Candida glabrata Not Reported Not Detected (NotDetected); Candida krusei Not Reported Not Detected (NotDetected); Cneoformans/gatti Not Reported Not Detected (NotDetected); Cparapsilosis Not Reported Not Detected (NotDetected); E cloacae compx Not Reported Not Detected (NotDetected); Efaecalis Not Reported Not Detected (NotDetected); Efaecium Not Reported Not Detected (NotDetected); Enterobacterales Not Reported Not Detected (NotDetected); Escherichia coli Not Reported Not Detected (NotDetected); H influenzae Not Reported Not Detected (NotDetected); K aerogenes Not Reported Not Detected (NotDetected); Koxytoca Not Reported Not Detected (NotDetected); Kpneumoniae grp Not Reported Not Detected (NotDetected); Lmonocyt Not Reported Not Detected (NotDetected); N meningitidis Not Reported Not Detected (NotDetected); P aeruginosa Not Reported Not Detected (NotDetected); Proteus spp Not Reported Not Detected (NotDetected); Salmonella spp Not Reported Not Detected (NotDetected); Smarcescens Not Reported Not Detected (NotDetected); Staph lugdunensis Not Reported Not Detected (NotDetected); Staph spp. Not Reported Not Detected (NotDetected); Staphaureus Not Reported Not Detected (NotDetected); Staphepi Not Reported Not Detected (NotDetected); Stenmaltophilia Not Reported Not Detected (NotDetected); Strep agal(GrpB) Not Reported Not Detected (NotDetected); Strep pneum Not Reported Not Detected (NotDetected); Strep pyog (GrpA) Not Reported Not Detected (NotDetected); Strep spp Not Reported Not Detected (NotDetected)
[2023-06-12] MEDS ORDERED: VANCOMYCIN CONSULT ACTIVE PRN (22:08)
[2023-06-12] MEDS ORDERED: VANCOMYCIN HCL 2,500 MG in SODIUM CHLORIDE 0.9% 500 ML IV ONE (23:00)
[2023-06-13] MEDS: HEPARIN SOD 5,000 UNIT/0.5 ML VIAL SQ SCH ×3 (06:02→22:41)
[2023-06-13 06:15] LABS: Hematocrit (blood only) 47.4 % (42.0-52.0); Hemoglobin 15.8 g/dl (14.0-18.0); Mean Corpuscular Hemoglobin 30.9 pg (25.0-34.0); Mean Corpuscular Hgb Conc 33.3 g/dL (32.0-36.0); Mean Corpuscular Volume 92.8 fL (80.0-100.0); Mean Platelet Volume 9.6 fL (9.4-12.4); Platelet Count 157 K/uL (130-400); RDW Coefficient of Variation 14.1 % (11.5-14.5); RDW Standard Deviation 48.4 fL (36.4-46.3); Red Blood Count 5.11 M/uL (4.70-6.10); White Blood Count 18.66 K/ul (4.8-10.8)
[2023-06-13 06:19] LABS: Albumin Globulin Ratio 1.3 (0.9-2); Albumin Level 3.5 gm/dl (3.4-5.0); Bilirubin,Total 0.7 mg/dl (0.2-1.0); Calcium 8.9 mg/dl (8.6-10.3); Creatinine Clr Calc Pharmacy 89.2 ml/min; Est GFR (African American) 84.4 ml/min; Est GFR (Non-African American) 72.8 ml/min; Globulin 2.6 gm/dl (2.5-4.0); Magnesium 2.3 mg/dl (1.7-2.4); Phosphorus 3.6 mg/dl (2.5-4.9); Potassium 4.2 mmol/L (3.5-5.1); Total Protein 6.1 gm/dl (6.0-8.3)
--- NOTE | 2023-06-13 07:39 | Hospitalist Progress Note ---
Date of Service June 13, 2023 Assessment & Plan (1) Acute hypoxic respiratory failure: Plan: 78 y/o male with metastatic melanoma, recent drug-induced hepatitis and rhabdomyolysis, prediabetes, SANDRINE on CPAP, dyslipidemia, 1st degree AV block, and anxiety who was referred to the ED from his PCP office where he presented for evaluation of worsening cough and shortness of breath. He was found to be hypoxic and referred to the ED. In the ED, work-up revealed an elevated troponin and EKG with subtle ST segment depression in the lateral leads. He was placed on 3L of O2 with improvement in sats though still symptomatically short of breath. He was given cefepime and vanco x 1 in the ED. Repeat EKG on oxygen with improvement in prior changes. CTA chest was negative for PE but showed atelectasis and mucus plugging and atelectasis Possible pneumonitis. May be related to Keytruda Leukocytosis likely related to steroid Procalcitonin<0.05 Continue current prednisone dose of 50 mg daily patient was already on. Defer additional taper to oncology (Dr. Maldonado) cont. w/ PO abx and monitor for poss. improvement Continue Incentive spirometry and flutter valve. Continue mucinex Wean oxygen as tolerated. Will need 2 step prior to dc ? bacteremia 1 blood cultx now positive - for gram posit. cocci - vancomycin started - poss. contaminant - repeat blood culture (2) Demand ischemia of myocardium: Plan: Was on hep gtt Echocardiogram performed 3 days ago in routine follow-up of his history of moderate aortic stenosis revealed normal to hyperdynamic left ventricular systolic function and the gradients across the aortic stenosis appeared relatively unchanged compared to 2021 Cardiology eval and recs noted Hep gtt stopped (3) Metastatic melanoma: Plan: Continue outpatient follow up with Onco Recent drug [place] [address] on 05/27/23, down to 2308 today AST is 168 today (was 226 yesterday) ALT is 310 today (was 376 yesterday) Monitor (4) BPH loc w urin obs/LUTS: Plan: Continue home proscar (5) Aortic stenosis: (6) Sleep apnea: Plan: CPAP with home settings ordered. (7) HTN (hypertension): Plan: Continue home losartan, metoprolol, amlodipine Get PT/OT eval DVT ppx: hep sq Full code Admission and Anticipated Discharge Date Admission Date: June 10, 2023 Subjective Patient seen in follow up of shortness of breath, hypoxia Reports feeling a bit better today Still has cough and some shortness of breath Reports weakness Denied fever, chills, nausea, vomiting, abd pain, diarrhea, dysuria, freq, urgency cardiology also consulted and following Overnight 1 posit. blood cultx posit. - vancomycin started Review of Systems Review of Systems: All systems reviewed & are unremarkable except as noted in Subjective Physical Exam Physical Exam: Constitutional:I + well hydrated an d + obese; no acut e distress Eyes: PERRL, conjunctiva e normal, anicteri c sclerae ENMT: external ear and n ose normal, oropha rynx normal some hearing deficits Respiratory: normal respiratory effort; no respir atory distress im proved air entry Cardiovascular:I Rate/Rhythm: regul ar rate and regula r rhythm S1 S2 Gastrointestinal ( Abdomen): normal bowel sound s, soft, nontender Musculoskeletal: Pedal edema impro pauline Neurologic: PERRL, EOMI, no fa ce palsy, no dysar thria, moves extre mities Psychiatric: A+Ox3, euthymic af fect Results & Data Results & Data Vital Signs (Past 12 Hours) Vital Signs Temp Pulse Pulse Resp BP Pulse Ox O2 Del Method 06/13/23 06:57 36.8 C 76 18 153/84 H 92 CPAP 06/12/23 21:59 73 06/13/23 03:26 36.4 C L 71 18 155/75 H 93 CPAP 06/12/23 22:59 36.5 C 78 20 149/82 H 95 Room Air Laboratory Results 06/13/23 06/13/23 06/10/23 Range/Units 05:28 05:28 13:33 WBC 18.66 H (4.8-10.8) K/ul RBC 5.11 (4.70-6.10) M/uL Hgb 15.8 (14.0-18.0) g/dl Hct 47.4 (42.0-52.0) % MCV 92.8 (80.0-100.0) fL MCH 30.9 (25.0-34.0) pg MCHC 33.3 (32.0-36.0) g/dL RDW Std Deviation 48.4 H (36.4-46.3) fL RDW Coeff of Belen 14.1 (11.5-14.5) % Plt Count 157 (130-400) K/uL MPV 9.6 (9.4-12.4) fL Sodium 137 (136-145) mmol/L Potassium 4.2 (3.5-5.1) mmol/L Chloride 101 (98-107) mmol/L Carbon Dioxide 32 (21-32) mmol/L Anion Gap 4 (3-11) BUN 31 H (6-23) mg/dl Creatinine 1.00 (0.6-1.4) mg/dl Est Cr Clr Drug Dosing 89.2 ml/min Est GFR ( Amer) 84.4 ml/min Est GFR (Non-Af Amer) 72.8 ml/min BUN/Creatinine Ratio 31.0 H (10-20) Glucose 117 H (70-99(Fasting)) mg/dl Calcium 8.9 (8.6-10.3) mg/dl Phosphorus 3.6 (2.5-4.9) mg/dl Magnesium 2.3 (1.7-2.4) mg/dl Total Bilirubin 0.7 (0.2-1.0) mg/dl AST 119 H (13-39) U/L ALT 257 H (7-52) U/L Alkaline Phosphatase 55 (34-104) U/L Total Protein 6.1 (6.0-8.3) gm/dl Albumin 3.5 (3.4-5.0) gm/dl Globulin 2.6 (2.5-4.0) gm/dl Albumin/Globulin Ratio 1.3 (0.9-2) Bld Cult ID Panel PCR PCR Panel Negative (NotDetected) Medications Administered Current Inpatient Medications Acetaminophen (Acetaminophen 325 Mg Tab) 650 mg PO Q4H PRN PRN Reason: Pain or Fever Stop: 07/10/23 20:54 Amlodipine Besylate ([facility] 5 Mg Tab) [facility]: 07/11/23 08:59 Last Admin: 06/12/23 08:22 Dose: 10 mg Aspirin (Aspirin 81 Mg Ectab) 81 mg PO QAM [facility] Stop: 07/11/23 08:59 Last Admin: 06/12/23 08:23 Dose: 81 mg Cefuroxime Axetil (Cefuroxime Axetil 500 Mg Tab) 500 mg PO BID [facility] Stop: 06/19/23 20:59 Last Admin: 06/12/23 20:34 Dose: 500 mg Doxycycline Hyclate (Doxycycline Hyclate 100 Mg Cap) 100 mg PO BID ODIN Stop: 06/19/23 20:59 Last Admin: 06/12/23 20:34 Dose: 100 mg Finasteride (Finasteride 5 Mg Tab) 5 mg PO QAM [facility] Stop: 07/11/23 08:59 Last Admin: 06/12/23 08:23 Dose: 5 mg Guaifenesin (Guaifenesin 600 Mg Tabcr) 1,200 mg PO Q12 [facility] Stop: 07/10/23 20:59 Last Admin: 06/12/23 20:35 Dose: 1,200 mg Heparin Sodium (Porcine) (Heparin 100 Unit/Ml 5ml Flush) 5 ml FLUSH PRN PRN PRN Reason: Flush Stop: 07/11/23 00:15 Last Admin: 06/12/23 10:36 Dose: 5 ml Heparin Sodium (Porcine) (Heparin Sod 5,000 Unit/0.5 Ml Vial) 5,000 units SQ Q8 [facility] Stop: 07/11/23 21:59 Last Admin: 06/13/23 06:02 Dose: 5,000 units Vancomycin HCl 1,000 mg/ (Sodium Chloride) 270 mls @ 200 mls/hr IV Q12H [facility]; Protocol Stop: 06/27/23 09:59 Lactobacillus Acidophilus (Advanced Probiotic 1250 Mg Capsule) 2 cap PO DAILY [facility] Stop: 07/12/23 19:44 Last Admin: 06/12/23 20:33 Dose: 2 cap Losartan Potassium (Losartan Potassium 50 Mg Tab) 100 mg PO QAM [facility] Stop: 07/11/23 08:59 Last Admin: 06/12/23 08:22 Dose: 100 mg Metoprolol Tartrate (Metoprolol Tartrate 25 Mg Tab) 25 mg PO BID [facility] Stop: 07/10/23 20:59 Last Admin: 06/12/23 20:36 Dose: 25 mg Miscellaneous Information (Vancomycin Consult Active) 1 each N/A UD PRN PRN Reason: Consult Stop: 07/12/23 22:07 Pantoprazole Sodium (Pantoprazole 40 Mg Tab) 40 mg PO QAM [facility] Stop: 07/11/23 08:59 Last Admin: 06/12/23 08:23 Dose: 40 mg Polyethylene Glycol (Polyethylene (Miralax) 17 Gm Pack) 17 gm PO DAILY PRN PRN Reason: Constipation Stop: 07/11/23 20:49 Last Admin: 06/12/23 20:55 Dose: 17 gm Prednisone (Prednisone 50 Mg Tab) 50 mg PO DAILY [facility] Stop: 07/11/23 08:59 Last Admin: 06/12/23 08:22 Dose: 50 mg Sertraline HCl (Sertraline Hcl 50 Mg Tablet) 50 mg PO HS [facility] Stop: 07/10/23 20:59 Last Admin: 06/12/23 20:36 Dose: 50 mg Trimethoprim/Sulfamethoxazole (Sulfamethoxazole/Trimethoprim Ds 800/160mg Tab) 1 tab PO MoWeFr@0900 [facility] Stop: 07/13/23 08:59 Vitamin B Complex (Vitamin B Complex Tab) 1 tab PO DAILY [facility] Stop: 07/11/23 08:59 Last Admin: 06/12/23 08:22 Dose: 1 tab Vitamin D (Cholecalciferol 5,000 Units 125 Mcg Tab) 5,000 units PO QAM [facility] Stop: 07/11/23 08:59 Last Admin: 06/12/23 08:23 Dose: 5,000 units
[2023-06-13] MEDS: VITAMIN B COMPLEX TAB PO SCH (09:25)
[2023-06-13] MEDS: PANTOprazole 40 MG TAB PO SCH (09:25)
[2023-06-13] MEDS: METOPROLOL TARTRATE 25 MG TAB PO SCH ×2 (09:25→20:36)
[2023-06-13] MEDS: predniSONE 50 MG TAB PO SCH (09:25)
[2023-06-13] MEDS: ASPIRIN 81 MG ECTAB PO SCH (09:25)
[2023-06-13] MEDS: guaiFENesin 600 MG TABCR PO SCH ×2 (09:26→20:37)
[2023-06-13] MEDS: ADVANCED PROBIOTIC 1250 MG CAPSULE PO SCH (09:26)
[2023-06-13] MEDS: amLODIPine BESYLATE 5 MG TAB PO SCH (09:26)
[2023-06-13] MEDS: FINASTERIDE 5 MG TAB PO SCH (09:26)
[2023-06-13] MEDS: SULFAMETHOXAZOLE/TRIMETHOPRIM DS 800/160MG TAB PO SCH (09:26)
[2023-06-13] MEDS: CHOLECALCIFEROL 5,000 UNITS 125 MCG TAB PO SCH (09:26)
[2023-06-13] MEDS: LOSARTAN POTASSIUM 50 MG TAB PO SCH (09:26)
[2023-06-13] MEDS: DOXYCYCLINE HYCLATE 100 MG CAP PO SCH ×2 (09:27→20:37)
[2023-06-13] MEDS: cefUROXime axetil 500 MG TAB PO SCH ×2 (09:27→20:36)
--- NOTE | 2023-06-13 09:28 | Pharmacy Report ---
Pharmacy PK ABX Note - Date of Service June 13, 2023 - Assessment and Plan Microbiology 06/10/23 13:33 Blood Aerobic Blood Culture - Preliminary 06/10/23 13:33 Blood Anaerobic Blood Culture - Preliminary Gram positive cocci clusters No growth in Anaerobic bottle after 48 hours. 06/10/23 13:16 Blood Aerobic Blood Culture - Preliminary 06/10/23 13:16 Blood Anaerobic Blood Culture - Preliminary No growth in Aerobic bottle after 48 hours. No growth in Anaerobic bottle after 48 hours. 06/13/23 08:15 Blood cultures pending Laboratory Tests 06/12/23 06/12/23 06/13/23 06:01 06:01 05:28 WBC 22.91 H 18.66 H Creatinine 0.97 Est Cr Clr Drug Dosing 92.0 06/13/23 05:28 WBC Creatinine 1.00 Est Cr Clr Drug Dosing 89.2 Assessment 78 year old M, obese (BMI 49.7) admitted for respiratory failure, receiving IV Vancomycin for treatment of possible bacteremia. Afebrile, WBCs trending down. Blood cultures as above. Also on Cefuroxime 500 PO BID and Bactrim MWF (home med). PMH significant for metastatic melanoma, recent drug-induced hepatitis and rhabdomyolysis, prediabetes, SANDRINE on CPAP, dyslipidemia, 1st degree AV block, and anxiety. Plan Vancomycin * Loading dose: 2500 mg IV x 1 * Maintenance dose: 1000 mg IV every 12 hours * Regimen is predicted to achieve target AUC/CLOTILDE of 400-600 mg/L.hr * Random level ordered for: 06/14/23 Pharmacy will continue to follow and will adjust dose/frequency as necessary. Thank you. Pharmacy has transitioned to AUC monitoring for vancomycin. AUC/CLOTILDE is the preferred PK/PD target and is associated with decreased risk of nephrotoxicity compared to traditional trough targets.
[2023-06-13] MEDS: VANCOMYCIN HCL 1,000 MG in SODIUM CHLORIDE 0.9% 250 ML IV SCH ×2 (09:29→22:41)
[2023-06-13] MEDS: POLYETHYLENE (MIRALAX) 17 GM PACK PO PRN (17:25)
[2023-06-13] MEDS: SERTRALINE HCL 50 MG TABLET PO SCH (20:36)
[2023-06-13] MEDS ORDERED: bisacodyL 10 MG SUPP PR STA (22:45)
[2023-06-14] MEDS: HEPARIN SOD 5,000 UNIT/0.5 ML VIAL SQ SCH ×3 (05:23→21:12)
[2023-06-14] MEDS: ADVANCED PROBIOTIC 1250 MG CAPSULE PO SCH (07:54)
[2023-06-14] MEDS: PANTOprazole 40 MG TAB PO SCH (07:54)
[2023-06-14] MEDS: amLODIPine BESYLATE 5 MG TAB PO SCH (07:54)
[2023-06-14] MEDS: VITAMIN B COMPLEX TAB PO SCH (07:54)
[2023-06-14] MEDS: CHOLECALCIFEROL 5,000 UNITS 125 MCG TAB PO SCH (07:55)
[2023-06-14] MEDS: LOSARTAN POTASSIUM 50 MG TAB PO SCH (07:55)
[2023-06-14] MEDS: METOPROLOL TARTRATE 25 MG TAB PO SCH ×2 (07:55→21:10)
[2023-06-14] MEDS: cefUROXime axetil 500 MG TAB PO SCH ×2 (07:55→21:11)
[2023-06-14] MEDS: FINASTERIDE 5 MG TAB PO SCH (07:55)
[2023-06-14] MEDS: ASPIRIN 81 MG ECTAB PO SCH (07:55)
[2023-06-14] MEDS: guaiFENesin 600 MG TABCR PO SCH ×2 (07:56→21:08)
[2023-06-14] MEDS: predniSONE 50 MG TAB PO SCH (07:56)
[2023-06-14] MEDS: DOXYCYCLINE HYCLATE 100 MG CAP PO SCH ×2 (07:56→21:10)
--- NOTE | 2023-06-14 08:19 | Hospitalist Progress Note ---
Date of Service June 14, 2023 Assessment & Plan (1) Acute hypoxic respiratory failure: Plan: 78 y/o male with metastatic melanoma, recent drug-induced hepatitis and rhabdomyolysis, prediabetes, SANDRINE on CPAP, dyslipidemia, 1st degree AV block, and anxiety who was referred to the ED from his PCP office where he presented for evaluation of worsening cough and shortness of breath. He was found to be hypoxic and referred to the ED. In the ED, work-up revealed an elevated troponin and EKG with subtle ST segment depression in the lateral leads. He was placed on 3L of O2 with improvement in sats though still symptomatically short of breath. He was given cefepime and vanco x 1 in the ED. Repeat EKG on oxygen with improvement in prior changes. CTA chest was negative for PE but showed atelectasis and mucus plugging and atelectasis Possible pneumonitis. May be related to Keytruda Leukocytosis likely related to steroid Procalcitonin<0.05 Continue current prednisone dose of 50 mg daily patient was already on. Defer additional taper to oncology (Dr. Maldonado) cont. w/ PO abx and monitor for poss. improvement Continue Incentive spirometry and flutter valve. Continue mucinex Wean oxygen as tolerated. Will need 2 step prior to dc ? bacteremia 1 blood cultx (06/10) now positive - for gram posit. cocci in clusters - vancomycin started - poss. contaminant - repeat blood culture - no growth so far - follow cultx (2) Demand ischemia of myocardium: Plan: Was on hep gtt Echocardiogram performed 3 days ago in routine follow-up of his history of moderate aortic stenosis revealed normal to hyperdynamic left ventricular systolic function and the gradients across the aortic stenosis appeared relatively unchanged compared to 2021 Cardiology eval and recs noted Heparin gtt stopped (3) Metastatic melanoma: Plan: Continue outpatient follow up with Onco Recent drug induced [place] [address] on 05/27/23, down to 2308 today AST, ALT elevated -> monitor Monitor (4) BPH loc w urin obs/LUTS: Plan: Continue home proscar (5) Aortic stenosis: (6) Sleep apnea: Plan: CPAP with home settings ordered. (7) HTN (hypertension): Plan: Continue home losartan, metoprolol, amlodipine Get PT/OT eval DVT ppx: hep sq Full code Admission and Anticipated Discharge Date Admission Date: June 10, 2023 Subjective Patient seen in follow up of shortness of breath, hypoxia Reports feeling better today Still has cough but shortness of breath is improved Reports weakness Denies fever, chills, nausea, vomiting, abd pain, diarrhea, dysuria, freq, urgency cardiology also consulted Pt's son present at the bedside and updated Review of Systems Review of Systems: All systems reviewed & are unremarkable except as noted in Subjective Physical Exam Physical Exam: Constitutional:I + well hydrated an d + obese; no acut e distress Eyes: PERRL, conjunctiva e normal, anicteri c sclerae ENMT: external ear and n ose normal, oropha rynx normal some hearing deficits Respiratory: normal respiratory effort; no respir atory distress im proved air entry Cardiovascular:I Rate/Rhythm: regul ar rate and regula r rhythm S1 S2 Gastrointestinal ( Abdomen): normal bowel sound s, soft, nontender Musculoskeletal: Pedal edema impro pauline Neurologic: PERRL, EOMI, no fa ce palsy, no dysar thria, moves extre mities Psychiatric: A+Ox3, euthymic af fect Results & Data Results & Data Vital Signs (Past 12 Hours) Vital Signs Temp Pulse Pulse Resp BP Pulse Ox O2 Del Method 06/14/23 07:46 36.4 C L 73 18 148/91 H 93 CPAP 06/14/23 07:37 71 06/13/23 20:45 Nasal Cannula 06/13/23 22:01 92 H 06/14/23 02:39 36.7 C 75 16 163/78 H 91 CPAP 06/13/23 23:11 36.3 C L 76 16 137/77 93 CPAP O2 Flow Rate 06/14/23 07:46 06/14/23 07:37 06/13/23 20:45 1.5 06/13/23 22:01 06/14/23 02:39 06/13/23 23:11 Laboratory Results 06/14/23 06/14/23 06/14/23 Range/Units 05:33 05:33 05:26 WBC 16.56 H (4.8-10.8) K/ul RBC 4.89 (4.70-6.10) M/uL Hgb 15.1 (14.0-18.0) g/dl Hct 45.7 (42.0-52.0) % MCV 93.5 (80.0-100.0) fL MCH 30.9 (25.0-34.0) pg MCHC 33.0 (32.0-36.0) g/dL RDW Std Deviation 48.6 H (36.4-46.3) fL RDW Coeff of Belen 14.1 (11.5-14.5) % Plt Count 187 (130-400) K/uL MPV 10.3 (9.4-12.4) fL Sodium 134 L (136-145) mmol/L Potassium 4.1 (3.5-5.1) mmol/L Chloride 101 (98-107) mmol/L Carbon Dioxide 29 (21-32) mmol/L Anion Gap 4 (3-11) BUN 28 H (6-23) mg/dl Creatinine 0.97 (0.6-1.4) mg/dl Est Cr Clr Drug Dosing 92.0 ml/min Est GFR ( Amer) 87.5 ml/min Est GFR (Non-Af Amer) 75.5 ml/min BUN/Creatinine Ratio 28.9 H (10-20) Glucose 116 H (70-99(Fasting)) mg/dl Calcium 8.7 (8.6-10.3) mg/dl Phosphorus 3.2 (2.5-4.9) mg/dl Magnesium 2.2 (1.7-2.4) mg/dl Random Vancomycin 12.5 (10-20) mcg/ml Medications Administered Current Inpatient Medications Acetaminophen (Acetaminophen 325 Mg Tab) 650 mg PO Q4H PRN PRN Reason: Pain or Fever Stop: 07/10/23 20:54 Amlodipine Besylate (Amlodipine Besylate 5 Mg Tab) 10 mg PO QAM [facility] Stop: 07/11/23 08:59 Last Admin: 06/14/23 07:54 Dose: 10 mg Aspirin (Aspirin 81 Mg Ectab) [facility] [place] Stop: 07/11/23 08:59 Last Admin: 06/14/23 07:55 Dose: 81 mg Cefuroxime Axetil (Cefuroxime Axetil 500 Mg Tab) 500 mg PO BID [facility] Stop: 06/19/23 20:59 Last Admin: 06/14/23 07:55 Dose: 500 mg Doxycycline Hyclate (Doxycycline Hyclate 100 Mg Cap) 100 mg PO BID [facility] Stop: 06/19/23 20:59 Last Admin: 06/14/23 07:56 Dose: 100 mg Finasteride (Finasteride 5 Mg Tab) 5 mg PO QAM [facility] Stop: 07/11/23 08:59 Last Admin: 06/14/23 07:55 Dose: 5 mg Guaifenesin (Guaifenesin 600 Mg Tabcr) 1,200 mg PO Q12 [facility] Stop: 07/10/23 20:59 Last Admin: 06/14/23 07:56 Dose: 1,200 mg Heparin Sodium (Porcine) (Heparin 100 Unit/Ml 5ml Flush) 5 ml FLUSH PRN PRN PRN Reason: Flush Stop: 07/11/23 00:15 Last Admin: 06/12/23 10:36 Dose: 5 ml Heparin Sodium (Porcine) (Heparin Sod 5,000 Unit/0.5 Ml Vial) 5,000 units SQ Q8 [facility] Stop: 07/11/23 21:59 Last Admin: 06/14/23 05:23 Dose: 5,000 units Vancomycin HCl 1,500 mg/ (Sodium Chloride) 530 mls @ 200 mls/hr IV Q12H [facility]; Protocol Stop: 06/27/23 08:59 Lactobacillus Acidophilus (Advanced Probiotic 1250 Mg Capsule) 2 cap PO DAILY [facility] Stop: 07/12/23 19:44 Last Admin: 06/14/23 07:54 Dose: 2 cap Losartan Potassium (Losartan Potassium 50 Mg Tab) [facility] [place] Stop: 07/11/23 08:59 Last Admin: 06/14/23 07:55 Dose: 100 mg Metoprolol Tartrate (Metoprolol Tartrate 25 Mg Tab) 25 mg PO BID [facility] Stop: 07/10/23 20:59 Last Admin: 06/14/23 07:55 Dose: 25 mg Miscellaneous Information (Vancomycin Consult Active) 1 each N/A UD PRN PRN Reason: Consult Stop: 07/12/23 22:07 Pantoprazole Sodium (Pantoprazole 40 Mg Tab) 40 mg PO QAM [facility] Stop: 07/11/23 08:59 Last Admin: 06/14/23 07:54 Dose: 40 mg Polyethylene Glycol (Polyethylene (Miralax) 17 Gm Pack) 17 gm PO DAILY PRN PRN Reason: Constipation Stop: 07/11/23 20:49 Last Admin: 06/13/23 17:25 Dose: 17 gm Prednisone (Prednisone 50 Mg Tab) 50 mg PO DAILY [facility] Stop: 07/11/23 08:59 Last Admin: 06/14/23 07:56 Dose: 50 mg Sertraline HCl (Sertraline Hcl 50 Mg Tablet) 50 mg PO HS [facility] Stop: 07/10/23 20:59 Last Admin: 06/13/23 20:36 Dose: 50 mg Trimethoprim/Sulfamethoxazole (Sulfamethoxazole/Trimethoprim Ds 800/160mg Tab) 1 tab PO MoWeFr@0900 [facility] Stop: 07/13/23 08:59 Last Admin: 06/13/23 09:26 Dose: 1 tab Vitamin B Complex (Vitamin B Complex Tab) 1 tab PO DAILY [facility] Stop: 07/11/23 08:59 Last Admin: 06/14/23 07:54 Dose: 1 tab Vitamin D (Cholecalciferol 5,000 Units 125 Mcg Tab) 5,000 units PO QAM [facility] Stop: 07/11/23 08:59 Last Admin: 06/14/23 07:55 Dose: 5,000 units
--- NOTE | 2023-06-14 08:25 | Pharmacy Report ---
Pharmacy PK ABX Note - Date of Service June 14, 2023 - Assessment and Plan Microbiology 06/10/23 13:33 Blood Aerobic Blood Culture - Preliminary 06/10/23 13:33 Blood Anaerobic Blood Culture - Preliminary Gram positive cocci clusters No growth in Anaerobic bottle after 48 hours. 06/10/23 13:16 Blood Aerobic Blood Culture - Preliminary 06/10/23 13:16 Blood Anaerobic Blood Culture - Preliminary No growth in Aerobic bottle after 48 hours. No growth in Anaerobic bottle after 48 hours. 06/13/23 08:15 Blood cultures pending Assessment 78 year old M, obese (BMI 49.7) admitted for respiratory failure, receiving IV Vancomycin for treatment of possible bacteremia. Afebrile, WBCs trending down. Blood cultures as above. Also on Cefuroxime 500 PO BID and doxycycline 100 mg PO BID and Bactrim MWF (home med). PMH significant for metastatic melanoma, recent drug-induced hepatitis and rhabdomyolysis, prediabetes, SANDRINE on CPAP, dyslipidemia, 1st degree AV block, and anxiety. Plan Vancomycin * Maintenance dose: 1000 mg IV every 12 hours - predicted to achieve less than target AUC. * Due to body habitus, patient is at risk of accumulation, will cautiously increase dose to vancomycin 1500 mg IV q12 * Regimen is predicted to achieve target AUC/CLOTILDE of 400-600 mg/L.hr * Random level ordered for: 06/16/23 Pharmacy will continue to follow and will adjust dose/frequency as necessary. Thank you. Pharmacy has transitioned to AUC monitoring for vancomycin. AUC/CLOTILDE is the preferred PK/PD target and is associated with decreased risk of nephrotoxicity compared to traditional trough targets.
[2023-06-14] MEDS: VANCOMYCIN HCL 1,500 MG in SODIUM CHLORIDE 0.9% 500 ML IV SCH ×2 (08:42→21:20)
[2023-06-14 09:11] LABS: Hematocrit (blood only) 45.7 % (42.0-52.0); Hemoglobin 15.1 g/dl (14.0-18.0); Mean Corpuscular Hemoglobin 30.9 pg (25.0-34.0); Mean Corpuscular Volume 93.5 fL (80.0-100.0); Mean Platelet Volume 10.3 fL (9.4-12.4); Platelet Count 187 K/uL (130-400); RDW Coefficient of Variation 14.1 % (11.5-14.5); RDW Standard Deviation 48.6 fL (36.4-46.3); Red Blood Count 4.89 M/uL (4.70-6.10); White Blood Count 16.56 K/ul (4.8-10.8)
[2023-06-14 09:26] LABS: BUN Creatinine Ratio 28.9 (10-20); Calcium 8.7 mg/dl (8.6-10.3); Est GFR (African American) 87.5 ml/min; Est GFR (Non-African American) 75.5 ml/min; Magnesium 2.2 mg/dl (1.7-2.4); Phosphorus 3.2 mg/dl (2.5-4.9); Potassium 4.1 mmol/L (3.5-5.1)
[2023-06-14] MEDS: SERTRALINE HCL 50 MG TABLET PO SCH (21:10)
[2023-06-14] MEDS: POLYETHYLENE (MIRALAX) 17 GM PACK PO PRN (21:18)
[2023-06-15] MEDS: HEPARIN SOD 5,000 UNIT/0.5 ML VIAL SQ SCH (05:21)
[2023-06-15 06:21] LABS: Hematocrit (blood only) 44.6 % (42.0-52.0); Hemoglobin 14.8 g/dl (14.0-18.0); Mean Corpuscular Hemoglobin 30.6 pg (25.0-34.0); Mean Corpuscular Hgb Conc 33.2 g/dL (32.0-36.0); Mean Corpuscular Volume 92.1 fL (80.0-100.0); Mean Platelet Volume 9.2 fL (9.4-12.4); Platelet Count 187 K/uL (130-400); RDW Standard Deviation 47.5 fL (36.4-46.3); Red Blood Count 4.84 M/uL (4.70-6.10)
[2023-06-15 06:41] LABS: BUN Creatinine Ratio 26.7 (10-20); Calcium 8.6 mg/dl (8.6-10.3); Creatinine Clr Calc Pharmacy 99.8 ml/min; Est GFR (African American) 95.8 ml/min; Est GFR (Non-African American) 82.7 ml/min; Magnesium 2.2 mg/dl (1.7-2.4); Phosphorus 3.1 mg/dl (2.5-4.9); Potassium 4.2 mmol/L (3.5-5.1)
[2023-06-15] MEDS: amLODIPine BESYLATE 5 MG TAB PO SCH (08:30)
[2023-06-15] MEDS: CHOLECALCIFEROL 5,000 UNITS 125 MCG TAB PO SCH (08:31)
[2023-06-15] MEDS: ASPIRIN 81 MG ECTAB PO SCH (08:31)
[2023-06-15] MEDS: DOXYCYCLINE HYCLATE 100 MG CAP PO SCH (08:31)
[2023-06-15] MEDS: cefUROXime axetil 500 MG TAB PO SCH (08:31)
[2023-06-15] MEDS: FINASTERIDE 5 MG TAB PO SCH (08:32)
[2023-06-15] MEDS: METOPROLOL TARTRATE 25 MG TAB PO SCH (08:32)
[2023-06-15] MEDS: guaiFENesin 600 MG TABCR PO SCH (08:32)
[2023-06-15] MEDS: LOSARTAN POTASSIUM 50 MG TAB PO SCH (08:32)
[2023-06-15] MEDS: ADVANCED PROBIOTIC 1250 MG CAPSULE PO SCH (08:32)
[2023-06-15] MEDS: predniSONE 50 MG TAB PO SCH (08:33)
[2023-06-15] MEDS: VITAMIN B COMPLEX TAB PO SCH (08:33)
[2023-06-15] MEDS: PANTOprazole 40 MG TAB PO SCH (08:33)
[2023-06-15] MEDS: SULFAMETHOXAZOLE/TRIMETHOPRIM DS 800/160MG TAB PO SCH (08:33)
[2023-06-15] MEDS: VANCOMYCIN HCL 1,500 MG in SODIUM CHLORIDE 0.9% 500 ML IV SCH (09:10)
--- NOTE | 2023-06-15 13:24 | Infectious Disease Consult ---
Date of Service June 15, 2023 Telehealth Information I performed this visit using a real-time telehealth connection between my location and the patients location ([facility]). After connecting through interactive tele-video, patient was identified by name and date of and/or wristband check.Patient (or authorized healthcare insurance service representative) was informed that this was a telemedicine visit and it was being conducted confidentially over secure lines. My office door was closed and no one else was present in the room with me.Patient (or authorized healthcare insurance service representative) provided consent to proceed with the visit, expressed an understanding of privacy and security of the telemedicine visit, and gave permission to have a hospital insurance service representative in the room in order to assist with the visit and to conduct portions of the visit, as needed. I informed the patient (or authorized healthcare insurance service representative) that I reviewed their record and presented the opportunity for them to ask any questions regarding the visit today. The patient agreed to participate. Assessment & Plan (1) Gram-positive bacteremia: Plan: Assessment: Micrococcus in blood - contamination Chemo port in place - no evidence of infection AHRF - possibly secondary to drug-induced pneumonitis Suspected demand-ischemia of myocardium Hx of metastatic melanoma on Keytruda (started on 04/2023: presumed drug-induced hepatitis and rhabdomyolysis; on bactrim ppx) Recommendations: - Stop vancomycin iv - Stop cefuroxime and doxycycline given no clear indication: bacterial lung infection seems less likely and the patient has already received >5 days of broad spectrum abx therapy - Continue bactrim prophylaxis per primary team/oncology - ID signing off Micrococcus is a well-known contaminant. Although the patient is immuncompromised, I would not risk the patient for potential side effects given low likelihood of this Micrococcus being a real pathogen: leukocytosis secondary to high dose steroid, low burden finding (i.e., Micrococcus in 1 of 4 bottles), no evidence of infection at the chemo port site, and no other findings suggestive of such infection. More than 50% of [id number] visit was spent counseling and coordinating care pertaining to the patient's infection diagnosis, additional work-up, and treatment option(s) as well as potential adverse events of the treatment. (2) Immunocompromised: History of Present Illness History of Present Illness This 78 y/o male (Ralf) w/ hx of metastatic melanoma on Keytruda (started on 04/2023: presumed drug-induced hepatitis and rhabdomyolysis; on bactrim ppx), chemo port (placed in 04/2023), SANDRINE on CPAP, DLD, preDM, 1st degree AV block, BPH and anxiety, was sent to [facility] on 06/10/23 from PCP office for worsening coughing and sob. On presentation, no fever but hypoxia was noted w/ elevated troponin and EKG with subtle ST segment depression in the lateral leads. CT chest was negative for PE but mucus plugging as well as possible pneumonitis. Found to have Micrococcus in blood. No fever. The patient has been on high dose of steroid past 3 weeks, tapering slowly. He is doing well now although he still feels weak. Denies persistent coughing, cp, sob, n/v, abd pain, diarrhea, f/c, or urinary symptoms. Denies any skin wound/infection or any issue w/ the chemo port present on R chest. Patients son, Mingo, and Margi, a nursing staff, were present at bedside during the telemed encounter. Allergies Allergy/AdvReac Type Severity Reaction Status Date / Time No Known Allergies Allergy Verified 11/23/21 06:14 Home Medications Medication Instructions Recorded Confirmed Type amlodipine 10 mg tablet 10 mg PO QAM 11/18/21 06/10/23 History aspirin 81 mg tablet,delayed 81 mg PO QAM 11/18/21 06/10/23 History release atorvastatin 10 mg tablet 20 mg PO HS 11/18/21 06/10/23 History cholecalciferol (vitamin D3) 50 5,000 unit PO QAM 11/18/21 06/10/23 History mcg (2,000 unit) capsule (Vitamin D3) finasteride 5 mg tablet 5 mg PO QAM 11/18/21 06/10/23 History hydrochlorothiazide 25 mg tablet 25 mg PO QAM 11/18/21 06/10/23 History losartan 100 mg tablet 100 mg PO QAM 11/18/21 06/10/23 History dulaglutide 1.5 mg/0.5 mL 1.5 mg subcut WK 06/10/23 06/10/23 History subcutaneous pen injector (Trulicity) metoprolol tartrate 25 mg tablet 25 mg PO BID 06/10/23 06/10/23 History omeprazole 20 mg capsule,delayed 20 mg PO QAM 06/10/23 06/10/23 History release prednisone 10 mg tablet See Rx Instructions .Route .COMPLEX 06/10/23 06/10/23 History sertraline 50 mg tablet 50 mg PO HS 06/10/23 06/10/23 History solifenacin 5 mg tablet (Vesicare) 5 mg PO DAILY PRN urinary frequency 06/10/23 06/10/23 History sulfamethoxazole 800 1 tab PO 3XWK 06/10/23 06/10/23 History mg-trimethoprim 160 mg tablet vitamin B complex 1 tab PO DAILY 06/10/23 06/10/23 History Patient History Medical History (Updated 06/15/23 @ 13:23 by Christina Hager MD) 1st degree AV block Benign essential tremor "BENIGN TREMOR" MOSTLY HANDS BPH loc w urin obs/LUTS Enlarged prostate Gouty arthritis History of abnormal electrocardiogram 2-3 YR AGO, TESTING DONE...DX HEART MURMUR History of colon polyps "MINOR" TO F/U IN 5-10 YRS HTN (hypertension) Hyperlipidemia Impaired renal function Moderate to severe aortic stenosis Prediabetes A1c on 05/27/23 - 6.3 Sleep apnea CPAP SOB (shortness of breath) on exertion NOT WITH STAIRS, ON A HILL...WILL STOP AND RESOLVES WITH REST; ongoing x yrs without change or worsening Surgical History History of cataract surgery History of colonoscopy History of detached retina repair RIGHT History of tonsillectomy S/P tonsillectomy Family History Father Family history of diabetes mellitus Heart disease Grandfather (Maternal) Heart disease Social History Smoking Status: Never smoker Second Hand Exposure: No; Do You Dip or Chew Tobacco: No (HX IN COLLEGE 50 YR AGO); Tobacco Cessation Education Requested by Patient: No Hx Alcohol Use: Yes Alcohol type: wine Hx Substance Use: No Preferred Language: Liberian Communication Ability: Effective Communication Ability Comment: PT [facility] Family Nurse Required: No Beliefs That Will Affect Care: None and Yarsani Yarsani Beliefs: CAODAISM Current Living Situation: Spouse and Family Current Living Situation Comment: AND SON COMES HOME FOR LONG WEEKENDS EVERY OTHER WEEK Feels Safe at Home: Yes Safety Concerns: Feels Safe At This Time Assistive Devices: CPAP Review of Systems as above and all others negative Physical Exam Gen: no acute distress Lungs: breathing comfortably on NC O2 supplement Neuro: AAOx3, fully conversant and following directions Results & Data Vital Signs (Past 12 Hours) Vital Signs Temp Pulse Resp BP Pulse Ox O2 Del Method O2 Flow Rate 06/15/23 12:00 36.5 C 88 18 111/61 95 Room Air 06/15/23 08:00 Nasal Cannula 1.5 06/15/23 08:00 36.4 C L 79 20 128/54 L 96 Room Air 06/15/23 03:14 36.4 C L 82 19 133/80 95 CPAP Laboratory Results Labs WBC 22.42K ->-> 15.4K H 14.8K Plt 187K Cr 0.9 AST 119, ALT 257 PCT <0.05 CT chest (06/10): 1. Limited exam as above. There is cardiomegaly without pulmonary emboli identified. 2. No pleural effusion or airspace consolidation to suggest pneumonia. 3. Bronchial wall thickening suggestive of bronchitis or reactive airway disease . 4. Bibasilar mucous plugging with atelectasis. 5. Hepatic steatosis. 6. Distended gallbladder. CXR (06/10): 1. Cardiomegaly with pulmonary vascular congestion. 2. Hypoinflation with mild bibasilar opacities favoring atelectasis. Diagnostic Findings Blood cx (06/10): Micrococcus (1 of 4) Blood cx (06/13): NGTD Medications Administered Cefepime and vancomycin iv + bactrim -> cefuroxime, doxycycline, vancomycin iv + bactrim
--- NOTE | 2023-06-15 14:40 | Hospitalist Progress Note ---
Date of Service June 15, 2023 Assessment & Plan (1) Acute hypoxic respiratory failure: Plan: Patient is a 78 yr male with H/O metastatic melanoma, recent drug-induced hepatitis and rhabdomyolysis, prediabetes, SANDRINE on CPAP, dyslipidemia, 1st degree AV block, and anxiety who was referred to the ED from his PCP office where he presented for evaluation of worsening cough and shortness of breath. He was found to be hypoxic and referred to the ED. Acute hypoxic respiratory failure Likely secondary to drug-induced pneumonitis Possible bronchitis Rule out bacteremia --CTA:Limited exam as above. There is cardiomegaly without pulmonary emboli caryn ntified. No pleural effusion or airspace consolidation to suggest pneumonia. Bronchial wall thickening suggestive of bronchitis or reactive airway disease. Bibasilar mucous plugging with atelectasis. Hepatic steatosis. Distended gallbladder. -- Blood cultures: 08/18 micrococcus species--contamination --Repeat blood cultures negative to date Empirically received IV vancomycin, also received cefuroxime and doxycycline (received 5 day course) Weaned off of supplemental oxygen Will obtain 2 step prior to discharge Appreciate infectious disease input Needs follow-up with oncology upon discharge (2) Demand ischemia of myocardium: Plan: --Echocardiogram performed 3 days ago in routine follow-up of his history of moderate aortic stenosis revealed normal to hyperdynamic left ventricular systolic function and the gradients across the aortic stenosis appeared relatively unchanged compared to 2021 Secondary to above IV heparin discontinued Appreciate cardiology input (3) Metastatic melanoma: Plan: Recent drug induced hepatitis [place] [address] on 05/27/23, down to 2308 today AST, ALT elevated -> monitor Needs follow-up with oncology upon discharge (4) BPH loc w urin obs/LUTS: Plan: Continue home proscar (5) Aortic stenosis: (6) Sleep apnea: Plan: CPAP with home settings ordered. (7) HTN (hypertension): Plan: Continue home losartan, metoprolol, amlodipine DVT px: Heparin SQ Code Status Full code Admission and Anticipated Discharge Date Admission Date: June 10, 2023 Subjective Patient is seen and examined at bedside States feeling much better today Cough, dyspnea continues to improve No new complaints Saturating well on room air Discussed with patient's family at bedside Also discussed with ID today Review of Systems Review of Systems: All systems reviewed & are unremarkable except as noted in Subjective Physical Exam Physical Exam: Physical Exam: Vitals signs as noted above General Appearance:Morbidly Obese, no apparent distress Head: normocephalic, Atraumatic Eyes: normal inspection, EOMI Neck: supple, Trachea midline Respiratory/Chest: Decreased breath sounds, CTA, No accessory muscle use,+Port Cardiovascular: S1, S2, No murmur Abdomen/GI:Soft, Non tender, Bowel sounds present Extremities/Musculoskeletal:normal inspection, 1+ Pedal edema Neurologic/Psych:AAOX3, grossly no focal neurological deficits Skin: normal color, warm Results & Data Results & Data Vital Signs (Past 12 Hours) Vital Signs Temp Pulse Resp BP Pulse Ox O2 Del Method O2 Flow Rate 06/15/23 12:00 36.5 C 88 18 111/61 95 Room Air 06/15/23 08:00 Nasal Cannula 1.5 06/15/23 08:00 36.4 C L 79 20 128/54 L 96 Room Air 06/15/23 03:14 36.4 C L 82 19 133/80 95 CPAP Laboratory Results Short CBC 06/15/23 Range/Units 06:05 WBC 15.40 H (4.8-10.8) K/ul Hgb 14.8 (14.0-18.0) g/dl Hct 44.6 (42.0-52.0) % Plt Count 187 (130-400) K/uL BMP 06/15/23 06:05 Sodium 137 Potassium 4.2 Chloride 102 Carbon Dioxide 30 BUN 24 H Creatinine 0.90 Glucose 108 H Calcium 8.6
--- NOTE | 2023-06-15 15:00 | Discharge Summary ---
Date of Service June 15, 2023 Admission HPI Per Admitting Provider This is a 78 y/o male with metastatic melanoma, recent drug-induced hepatitis and rhabdomyolysis, prediabetes, SANDRINE on CPAP, dyslipidemia, 1st degree AV block, and anxiety who was referred to the ED today from his PCP office where he presented for evaluation of worsening cough and shortness of breath but was found to be hypoxic. Pt was diagnosed with metastatic melanoma earlier this year and underwent surgical excision. 1/2 LN were positive. Pt was started on Keytruda by oncology (Dr. Maldonado) on 05/06/23 and initially did okay before developing back pain that migrated to abdomen and then head before eventually resolving. On labs before second dose, he was noted to have rhabdomyolysis and transaminitis after first dose so Keytruda was stopped and patient was started on prednisone 80 mg daily. This is slowly being tapered by oncology as labs improve. Initial CK was 12,192 on 05/27/23. Most recent on 06/09 was 3,498. Prednisone was being decreased to 50 mg daily today. Pt is also being started on Bactrim prophylaxis. He has an appointment next week to determine next steps in his treatment plan. He reports that after the pain started to resolve and after starting prednisone, he noticed increasing dyspnea with exertion and orthopnea. Typically, he is able to lie flat without issue but over the last several days, he is having difficulty sleeping because of the trouble breathing if he tries to lie down. He has also noted significant dyspnea with even walking to the bathroom, which has limited his ability to function. This dyspnea does resolve with rest. He has been checking his pulseox at home and it has been dropping into the upper 80s with exertion. He denies cough but has noted phlegm in his throat at night. When he is able to bring it up, he notes it is a small amount but thick and tenacious. He denies fevers, chills, sweats, chest pain, palpitations or syncope. His appetite is decreased and his stomach feels "queasy" on the prednisone but he denies N/V/D. He has had constipation. No blood in stools. Admission Exam Per Admitting Provider On exam, General: Obese in no distress Eyes: PERRL, conjunctivae normal, not pale, anicteric sclerae, EOM intact bilaterally ENMT: External ear and nose normal, oropharynx normal. Some hearing deficits+ (hearing aide in situ) Respiratory: Normal respiratory effort, no respiratory distress, diminished breath sounds lung bases Cardiovascular: RRR S1 S2 Gastrointestinal (Abdomen): Abdomen is not distended, soft, non-tender to palpation, no guarding, no palpable hepatosplenomegaly, normal bowel sounds Musculoskeletal: +Pedal edema Neurologic: Alert and oriented x 3, No focal weakness, sensation grossly intact Principal Diagnosis Acute hypoxic respiratory failure Likely secondary to drug-induced pneumonitis Possible bronchitis Drug induced hepatitis and rhabdomyolysis Discharge Data Allergies Allergy/AdvReac Type Severity Reaction Status Date / Time No Known Allergies Allergy Verified 11/23/21 06:14 Consultations 06/10/23 16:49 ED Decision to Admit Stat 06/10/23 17:56 Consult Cardiology Stat 06/15/23 09:14 Consult Infectious Diseases Routine Procedures Performed Laboratory Results WBC 15.40 K/ul (4.8-10.8) H 06/15/23 06:05 RBC 4.84 M/uL (4.70-6.10) 06/15/23 06:05 Hgb 14.8 g/dl (14.0-18.0) 06/15/23 06:05 Hct 44.6 % (42.0-52.0) 06/15/23 06:05 MCV 92.1 fL (80.0-100.0) 06/15/23 06:05 MCH 30.6 pg (25.0-34.0) 06/15/23 06:05 MCHC 33.2 g/dL (32.0-36.0) 06/15/23 06:05 RDW Std Deviation 47.5 fL (36.4-46.3) H 06/15/23 06:05 RDW Coeff of Belen 14.0 % (11.5-14.5) 06/15/23 06:05 Plt Count 187 K/uL (130-400) 06/15/23 06:05 MPV 9.2 fL (9.4-12.4) L 06/15/23 06:05 Immature Gran % (Auto) 0.8 % 06/11/23 03:28 Neut % (Auto) 81.6 % 06/11/23 03:28 Lymph % (Auto) 10.6 % 06/11/23 03:28 [place] % (Auto) 6.7 % 06/11/23 03:28 Eos % (Auto) 0.1 % 06/11/23 03:28 Baso % (Auto) 0.2 % 06/11/23 03:28 Neut # (Auto) 17.83 K/uL (1.40-6.50) H 06/11/23 03:28 Lymph # (Auto) 2.31 K/uL (1.20-3.40) 06/11/23 03:28 [place] # (Auto) 1.46 K/uL (0.11-0.59) H 06/11/23 03:28 Eos # (Auto) 0.03 K/uL (0.00-0.50) 06/11/23 03:28 Baso # (Auto) 0.05 K/uL (0.00-0.20) 06/11/23 03:28 Immature Gran # (Auto) 0.18 K/uL (0.01-0.20) 06/11/23 03:28 PT 11.7 Seconds (9.0-12.0) 06/10/23 13:16 INR 1.1 (0.9-1.1) 06/10/23 13:16 APTT 59.5 Seconds (21.0-31.0) H* 06/11/23 11:16 PTT Ratio 2.1 06/11/23 11:16 VBG pH 7.41 (7.36-7.41) 06/10/23 13:33 VBG pCO2 50 mmHg (38-50) 06/10/23 13:33 VBG pO2 45 mmHg 06/10/23 13:33 VBG HCO3 32 mmol/L 06/10/23 13:33 VBG O2 Saturation 76.0 % 06/10/23 13:33 VBG Base Excess 5.8 mEq/L 06/10/23 13:33 Sodium 137 mmol/L (136-145) 06/15/23 06:05 Potassium 4.2 mmol/L (3.5-5.1) 06/15/23 06:05 Chloride 102 mmol/L (98-107) 06/15/23 06:05 Carbon Dioxide 30 mmol/L (21-32) 06/15/23 06:05 Anion Gap 5 (3-11) 06/15/23 06:05 BUN 24 mg/dl (6-23) H 06/15/23 06:05 Creatinine 0.90 mg/dl (0.6-1.4) 06/15/23 06:05 Est Cr Clr Drug Dosing 99.8 ml/min 06/15/23 06:05 Est GFR ( Amer) 95.8 ml/min 06/15/23 06:05 Est GFR (Non-Af Amer) 82.7 ml/min 06/15/23 06:05 BUN/Creatinine Ratio 26.7 (10-20) H 06/15/23 06:05 Glucose 108 mg/dl (70-99(Fasting)) H 06/15/23 06:05 Lactate 1.8 mmol/L (0.4-2.0) 06/10/23 15:34 Calcium 8.6 mg/dl (8.6-10.3) 06/15/23 06:05 Phosphorus 3.1 mg/dl (2.5-4.9) 06/15/23 06:05 Magnesium 2.2 mg/dl (1.7-2.4) 06/15/23 06:05 Total Bilirubin 0.7 mg/dl (0.2-1.0) 06/13/23 05:28 Direct Bilirubin 0.1 mg/dl (0-0.2) 06/11/23 03:28 AST 119 U/L (13-39) H 06/13/23 05:28 ALT 257 U/L (7-52) H 06/13/23 05:28 Alkaline Phosphatase 55 U/L (34-104) 06/13/23 05:28 Total Creatine Kinase 2308 U/L (30-223) H 06/11/23 03:28 Troponin I High Sens 405.8 pg/ml (0-20) H* 06/11/23 03:28 B-Natriuretic Peptide 51 pg/ml (0-100) 06/10/23 13:16 Total Protein 6.1 gm/dl (6.0-8.3) 06/13/23 05:28 Albumin 3.5 gm/dl (3.4-5.0) 06/13/23 05:28 Globulin 2.6 gm/dl (2.5-4.0) 06/13/23 05:28 Albumin/Globulin Ratio 1.3 (0.9-2) 06/13/23 05:28 Procalcitonin < 0.05 ng/ml (0-0.5) 06/10/23 21:37 Urine Color Yellow 06/10/23 13:53 Urine Appearance Clear (Clear) 06/10/23 13:53 Urine pH 7.0 (4.5-7.5) 06/10/23 13:53 Ur Specific Sherrill 1.020 (1.000-1.030) 06/10/23 13:53 Urine Protein Trace (Negative) H 06/10/23 13:53 Urine Glucose (UA) Negative (Negative) 06/10/23 13:53 Urine Ketones Negative (Negative) 06/10/23 13:53 Urine Blood 2+ (Negative) H 06/10/23 13:53 Urine Nitrite Negative (Negative) 06/10/23 13:53 Urine Bilirubin Negative (Negative) 06/10/23 13:53 Urine Urobilinogen Negative (Negative) 06/10/23 13:53 Ur Leukocyte Esterase Negative (Negative) 06/10/23 13:53 Urine WBC (Auto) 1-5 /hpf (0-5) 06/10/23 13:53 Urine RBC (Auto) 0-4 /hpf (0-4) 06/10/23 13:53 U Hyaline Cast (Auto) 1-5 /lpf (0-5) 06/10/23 13:53 U Epithel Cells (Auto) 5-10 /lpf (0-5) H 06/10/23 13:53 Urine Bacteria (Auto) Negative (Negative) 06/10/23 13:53 Random Vancomycin 12.5 mcg/ml (10-20) 06/14/23 05:26 Adenovirus (PCR) Not Detected (NotDetected) 06/10/23 13:32 B. pertussis DNA (PCR) Not Detected (NotDetected) 06/10/23 13:32 B.parapertussis DNA PCR Not Detected (NotDetected) 06/10/23 13:32 C. pneumoniae DNA (PCR) Not Detected (NotDetected) 06/10/23 13:32 Coronavirus OC43 (PCR) Not Detected (NotDetected) 06/10/23 13:32 Coronavirus HKU1 (PCR) Not Detected (NotDetected) 06/10/23 13:32 Coronavirus 229E (PCR) Not Detected (NotDetected) 06/10/23 13:32 SARS-CoV-2 (PCR) Not Detected (NotDetected) 06/10/23 13:32 Coronavirus NL63 (PCR) Not Detected (NotDetected) 06/10/23 13:32 Hepatitis A IgM Ab Cancelled 06/11/23 03:28 Hep Bs Antigen Cancelled 06/11/23 03:28 Hep Bs Ag Confirmation Cancelled 06/11/23 03:28 Hep B Core IgM Ab Cancelled 06/11/23 03:28 Hepatitis C Ab (EIA) Cancelled 06/11/23 03:28 Human Metapneumovir PCR Not Detected (NotDetected) 06/10/23 13:32 Influenza Type A (PCR) Not Detected (NotDetected) 06/10/23 13:32 Influenza Type B (PCR) Not Detected (NotDetected) 06/10/23 13:32 M. pneumoniae (PCR) Not Detected (NotDetected) 06/10/23 13:32 Parainfluenza 1 (PCR) Not Detected (NotDetected) 06/10/23 13:32 Parainfluenza 2 (PCR) Not Detected (NotDetected) 06/10/23 13:32 Parainfluenza 3 (PCR) Not Detected (NotDetected) 06/10/23 13:32 Parainfluenza 4 (PCR) Not Detected (NotDetected) 06/10/23 13:32 RSV (PCR) Not Detected (NotDetected) 06/10/23 13:32 Entero/Rhino (PCR) Not Detected (NotDetected) 06/10/23 13:32 Bld Cult ID Panel PCR PCR Panel Negative (NotDetected) 06/10/23 13:33 Impressions Chest CTA 06/10/23 13:10 CT angio chest PE protocol CT DOSE: 819.02 mGy.cm HISTORY: 78 years-old Male with Dyspnea; hypoxia. Acute shortness of breath with hypoxia TECHNIQUE: Multiple CTA images of the chest were obtained after the intravenous administration of 121 ml Optiray. Coronal and sagittal MIPS were obtained from the axial data set and were submitted for review. All measurements were obtained according to NASCET criteria. A dose lowering technique was utilized adhering to the principles of ALARA. COMPARISON: Chest radiograph of same day FINDINGS: CTA: Moderate cardiomegaly. No pericardial effusion. Extensive coronary artery calcifications. Atherosclerosis of the aorta. Right IJ is a port catheter distal tip terminates in the inferior SVC. Left heart structures are not well opacified and therefore difficult to evaluate. Reflux of contrast into the IVC. Suboptimal opacification of the pulmonary artery secondary to contrast bolus timing. No pulmonary emboli identified. CT CHEST: No thyroid nodule identified. No lymphadenopathy. No pneumothorax, pleural effusion or overt pulmonary edema. Mild linear subsegmental bibasilar atelectasis. Mild bronchial wall thickening. No suspicious pulmonary nodules or mass is identified. Scattered punctate calcified pulmonary granulomata of the lung bases. Mild bibasilar mucous plugging. No acute process of the imaged upper abdomen. Distended gallbladder. Hepatic steatosis. Unremarkable soft tissues. No acute fracture. IMPRESSION: 1. Limited exam as above. There is cardiomegaly without pulmonary emboli identified. 2. No pleural effusion or airspace consolidation to suggest pneumonia. 3. Bronchial wall thickening suggestive of bronchitis or reactive airway disease. 4. Bibasilar mucous plugging with atelectasis. 5. Hepatic steatosis. 6. Distended gallbladder. ACT 112: Negative or not required by law. The above report was generated using voice recognition software. It may contain grammatical, syntax or spelling errors. Electronically signed by: Flaquito Clemente M.D. 06/10/2023 3:27 PM Chest X-Ray 06/10/23 13:10 XR chest 1V portable HISTORY: 78 years-old Male Dyspnea acute shortness of breath COMPARISON: None TECHNIQUE: AP view the chest FINDINGS: Cardiac silhouette is enlarged. Right IJ Sqglih-[id number] catheter. Pulmonary vascular congestion. Hypoinflation with bibasilar densities. No pneumothorax. Degenerative changes of the shoulders and spine. IMPRESSION: 1. Cardiomegaly with pulmonary vascular congestion. 2. Hypoinflation with mild bibasilar opacities favoring atelectasis. ACT 112: Negative or not required by law. The above report was generated using voice recognition software. It may contain grammatical, syntax or spelling errors. Electronically signed by: Flaquito Clemente M.D. 06/10/2023 1:44 PM Ordered Studies 06/10/23 13:10 CT angio chest PE protocol Stat Hospital Course (1) Acute hypoxic respiratory failure: Patient is a 78 yr male with H/O metastatic melanoma, recent drug-induced hepatitis and rhabdomyolysis, prediabetes, SANDRINE on CPAP, dyslipidemia, 1st degree AV block, and anxiety who was referred to the ED from his PCP office where he presented for evaluation of worsening cough and shortness of breath. He was found to be hypoxic and referred to the ED. Acute hypoxic respiratory failure Likely secondary to drug-induced pneumonitis Possible bronchitis Rule out bacteremia --CTA:Limited exam as above. There is cardiomegaly without pulmonary emboli identified. No pleural effusion or airspace consolidation to suggest pneumonia. Bronchial wall thickening suggestive of bronchitis or reactive airway disease. Bibasilar mucous plugging with atelectasis. Hepatic steatosis. Distended gallbladder. -- Blood cultures: 08/18 micrococcus species--contamination --Repeat blood cultures negative to date Empirically received IV vancomycin, also received cefuroxime and doxycycline (received 5 day course) Weaned off of supplemental oxygen 2 step: Needs 2 liters with activity Appreciate infectious disease input Needs follow-up with oncology upon discharge (2) Demand ischemia of myocardium: --Echocardiogram performed 3 days ago in routine follow-up of his history of moderate aortic stenosis revealed normal to hyperdynamic left ventricular systolic function and the gradients across the aortic stenosis appeared relatively unchanged compared to 2021 Secondary to above IV heparin discontinued Appreciate cardiology input (3) Metastatic melanoma: Recent drug induced hepatitis [place] [address] on 05/27/23, down to 2308 today AST, ALT elevated -> monitor Needs follow-up with oncology upon discharge (4) BPH loc w urin obs/LUTS: Continue home proscar (5) Aortic stenosis: (6) Sleep apnea: CPAP with home settings ordered. (7) HTN (hypertension): Continue home losartan, metoprolol, amlodipine Morbid obesity BMI 50 DVT px: Heparin SQ Code Status Full code Disposition Home Total Time Total Time Spent Total Time Spent (In Minutes): 65 minutes Discharge Plan Discharge Items Patient Disposition: Home - Self-Care Reason For Visit: HYPOXIA, SOB Discharge Diagnosis: Acute hypoxic respiratory failure Likely secondary to drug-induced pneumonitis Possible bronchitis Drug induced hepatitis and rhabdomyolysis Activity: Per Instructions section Exercise/Sports: Wait until after follow-up appointment Non-emergency contact: Primary Care Provider and Oncologist Call non-emergency contact if: you have any medication questions, your symptoms worsen, your pain is concerning for you and you have a fever Follow-up/Referrals: Francisco Sharma DO [Nursing Home Aide] - (Date & Time 06/27/2023 8:00 AM Provider Francisco Sharma DO Department Cardiology, [facility] ) Rasheed Maldonado MD [Surgeon] - (Date & Time 06/16/2023 8:40 AM Provider Pia Silveira Scenery Department Laboratory [facility] Date & Time 06/16/2023 9:15 AM Provider Rasheed Maldonado MD Department Hematology/Oncology [facility] ) Sami Stephens DO [Primary Care Provider] - (Date & Time 06/17/2023 8:30 AM Provider Eren Pharmacist [facility] [address] [place] [address] Date & Time 06/17/2023 9:00 AM Provider Sami Stephens DO Department Family Practice [facility] ) Diet: Heart Healthy Addtl Attending Provider Instructions: Follow-up with your primary care physician Dr. Stephens on 06/17/2023 8:30 AM Follow-up with your oncologist Dr. Maldonado on 06/16/2023 8:40 AM Follow-up with your medical billing and coding specialist Dr. Sharma on 06/27/2023 8:00 AM --- Your final blood cultures are pending at the time of discharge. Follow-up with your physician for results. -- Use 2 L supplemental oxygen with activity as advised. --Hold taking Lipitor until follow-up with your primary care physician as your liver enzymes are elevated. Seek immediate medical attention if your symptoms reoccur or worsen Please take all medications as instructed on discharge list below. Please call if you have any questions or problems. You can reach a [facility] hospitalist on duty at [facility] 24 hours a day by calling [phone] Pending Studies at Discharge: Yes Studies:: Final Blood Culture results Stand-Alone Forms: [facility] Dynamic, Smoking Cessation Medications and DC Order Prescriptions: Continued aspirin 81 mg Tablet,Delayed Release (Dr/Ec) 81 mg PO QAM amlodipine 10 mg Tablet 10 mg PO QAM hydrochlorothiazide 25 mg Tablet 25 mg PO QAM losartan 100 mg Tablet 100 mg PO QAM finasteride 5 mg Tablet 5 mg PO QAM cholecalciferol (vitamin D3) [Vitamin D3] 50 mcg (2,000 unit) Capsule 5,000 unit PO QAM prednisone 10 mg tablet See Rx Instructions .ROUTE .COMPLEX Rx Instructions: 5 tabs in the morning per PCP office. Is on a tapering dose. sulfamethoxazole-trimethoprim 800-160 mg tablet 1 tab PO 3XWK Rx Instructions: tuesday,tuesday, tuesday only omeprazole 20 mg capsule,delayed release(DR/EC) 20 mg PO QAM vitamin B complex Tablet 1 tab PO DAILY sertraline 50 mg tablet 50 mg PO HS solifenacin [Vesicare] 5 mg Tablet 5 mg PO DAILY PRN (Reason: urinary frequency) Trulicity 1.5 mg/0.5 mL pen injector 1.5 mg SUBCUT WK Rx Instructions: Wednesdays metoprolol tartrate 25 mg tablet 25 mg PO BID Held atorvastatin 10 mg Tablet 20 mg PO HS Hold Instructions: Until follow up with your Primary Care physician Rx Instructions: medication currently on hold Discharge Orders: Discharge Order (Routine); Ordered 06/15/23 Ordered By: Timmy Mcdaniels Admission Data Admit Date/Time: 06/10/23 18:01 Attending Provider: Timmy Mcdaniels Admit Provider: Kya Aguliera I. Primary Care Provider: Sami Stephens Other Providers: Kya Aguilera I. ; Federico Rios ; Rusty Corley ; Christina Hager ; Solitario Bhatia I. ; Kevon Hook II ; Tamara Dejesus ; Cliff Solorzano ; Valentín Dominguez ; Daryn Boggs
== END 2023-06-15 16:40 | disposition home or self-care (01) | DRG 205 ==
LOC: ED 12:58 → 2S 18:01 → SUATTDRO 18:01 → 2S 20:51

== ENCOUNTER 2023-09-12 11:28 | Inpatient (IN) ==
--- NOTE | 2023-09-12 11:57 | Emergency Department Note ---
Impression & Plan Acute cholecystitis, Nausea ED Provider Note Provider: Ignacio Macias MD DATE OF SERVICE: 09/12/2023 CHIEF COMPLAINT: Fever/week, right upper quadrant pain HISTORY OF PRESENT ILLNESS: Patient is a 78-year-old gentleman history of metastatic melanoma not currently on treatment, BPH, aortic stenosis, hypertension, and sleep apnea presenting today referred from the outpatient clinic. Patient states over the past approximately 3 days since Tuesday has been having some increased weakness as well as fevers at home. Reports pain in the right upper quadrant of the abdomen a little bit to the right lower chest. Maybe a bit short of breath. Reports nausea and decreased intake but did have an Ensure this morning. Has been taking his medications. History of cancer previously on Keytruda but previous reaction and not currently on treatment. No falls reported. No lower abdominal pain reported. Seen in the office and referred here after blood work for further imaging particularly to evaluate for gallbladder pathology. No history of abdominal surgeries reported. Patient states he has been using his CPAP and adding a little bit oxygen to it to help with feeling less short of breath but denies cough or sore throat or runny nose. No sick contacts reported. Little bit of soreness of his right upper chest port on Tuesday but this is resolved. Stable swelling of the lower extremities. PAST MEDICAL HISTORY: As noted above MEDICATIONS: Reviewed home medication list SOCIAL HISTORY: lives at home PHYSICAL EXAM: GENERAL: alert and oriented in no acute distress on stretcher fatigued in appearance Head: normocephalic and atraumatic EYES: No injection, discharge or icterus. NECK: Trachea midline. ENT: Mucous membranes pink and moist LUNGS: Airway patent. No retractions. Breath sounds clear anteriorly HEART: Regular rate and rhythm. No chest wall tenderness with subcutaneous right upper chest port appreciated without surrounding erythema. ABDOMEN: Soft with tenderness in the right upper quadrant. No lower abdominal or left-sided tenderness. SKIN: Acyanotic, warm, dry. Pain prior scar to the left upper mormon from prior resection. No significant erythema EXTREMITIES: Without tenderness with 1+ edema bilaterally lower extremities. NEUROLOGICAL: No focal deficits. No aphasia. No facial droop or slurred speech. Ambulatory. EK bpm sinus rhythm with sinus arrhythmia with left axis. PVC noted. No acute ST segment elevation or depression with a QTc of 444 CONTINUOUS CARDIAC MONITORING: was ordered and showed a heart rate of 60s-70s bpm in normal sinus rhythm occasional sinus arrhythmia Patient's laboratory studies and imaging reviewed. Differential includes Infection, gastrointestinal etiology such as cholecystitis, dehydration, metabolic abnormality, hypo/hyperglycemia, electrolyte disturbance, anemia, hypoxia, cardiac sources, intracerebral event, neurologic, as well as other pathologies. IMPRESSION/MEDICAL DECISION MAKING: Patient reportedly with weakness diffuse pain particular in the right upper quadrant of the abdomen as well as fevers. Evidently had blood work in the [facility] system this morning and did attempt to have family preservation caseworker access these records. Blood work from this morning does show a creatinine of 0.9 with normal electrolytes other than a chloride of 96 and a calcium of 10.4. White blood cell count from earlier today did show an elevation of 19.1 which is significantly elevated from normal baseline previously. Did have a cystoscopy with a short of Bactrim week or 2 ago. Evidently seen in urgent care and had negative respiratory viral panel recently. Cultures and blood work sent here. Maybe a bit of nausea but not eating well given some Zofran. Will obtain CT of the abdomen pelvis as well as the chest to exclude pulmonary issue or possible gallbladder pathology intra-abdominal pathology. Given some breathing issues and history of cancer we will obtain a CT of the chest as well to exclude pulmonary issue or pulmonary embolism. Given history of heart failure not aggressively fluid resuscitating as the patient does not appear significantly dehydrated. He is not febrile, tachycardic, hypotensive, or hypoxic here. Blood work concerning with the leukocytosis for infective etiology. Does have a port as well as oncological history and now with some upper abdominal discomfort. Lactate was sent as well as blood cultures and procalcitonin. Lactate normal. Urinalysis contaminated with not convincing for infection. Chemistries without severe abnormality only mild hyponatremia. No significant renal dysfunction. Bilirubin 1.2. ALT 12. Alkaline phosphatase 56. Lipase normal at 9. High sensitive troponin minimally elevated at 22 but improving from previous and I doubt this is primarily cardiac. CT of the chest and abdomen pelvis shows inflammatory changes in the right upper quadrant without evidence of PE but cardiomegaly and an irregular 1.5 cm right upper lobe nodular opacity. Imaging concerning for distention and thickening of the gallbladder and acute cholecystitis. Empirically given cefepime and Flagyl for antimicrobial coverage and discussed with pharmacy. Reached out to general surgery team. Recommended an ultrasound with IV antibiotics and IV fluids, admission to the hospital, and possbile GI evaluation for any biliary duct issues. Will contact the hospitalist team. Ultrasound ordered of the gallbladder. DIAGNOSIS: Acute cholecystitis, weakness, nausea DISPOSITION: Hospitalist will evaluate Patient was agreeable with this plan. Past Med/Surg History Medical History Prediabetes A1c on 05/27/23 - 6.3 Gouty arthritis 1st degree AV block BPH loc w urin obs/LUTS Moderate to severe aortic stenosis Impaired renal function History of colon polyps "MINOR" TO F/U IN 5-10 YRS Benign essential tremor "BENIGN TREMOR" MOSTLY HANDS SOB (shortness of breath) on exertion NOT WITH STAIRS, ON A HILL...WILL STOP AND RESOLVES WITH REST; ongoing x yrs without change or worsening Sleep apnea CPAP History of abnormal electrocardiogram 2-3 YR AGO, TESTING DONE...DX HEART MURMUR Hyperlipidemia Enlarged prostate HTN (hypertension) Surgical History S/P tonsillectomy History of cataract surgery History of colonoscopy History of tonsillectomy History of detached retina repair RIGHT Family History Father Family history of diabetes mellitus Heart disease Grandfather (Maternal) Heart disease Social History Smoking Status: Never smoker Second Hand Exposure: No; Do You Dip or Chew Tobacco: No (HX IN COLLEGE 50 YR AGO); Hx Alcohol Use: Yes Alcohol type: wine Hx Substance Use: No Preferred Language: Taiwanese Communication Ability: Effective Communication Ability Comment: PT [facility] Leather Tacker Required: No Beliefs That Will Affect Care: None and Mandaen Mandaen Beliefs: SCIENTOLOGY Current Living Situation: Spouse and Family Current Living Situation Comment: AND SON COMES HOME FOR LONG WEEKENDS EVERY OTHER WEEK Feels Safe at Home: Yes Assistive Devices: CPAP Allergies Allergies Allergy/AdvReac Type Severity Reaction Status Date / Time pembrolizumab [From Keytruda] Allergy Severe SEE COMMENT Verified 09/12/23 13:47 aspartame Allergy Unknown Gastrointestinal Unverified 09/12/23 14:00 Upset Penicillins Allergy Unknown CAN'T Verified 09/12/23 13:47 REMEMBER Home Meds Home Medications Medication Instructions Recorded Confirmed amlodipine 10 mg tablet 10 mg PO QAM 11/18/21 09/12/23 aspirin 81 mg tablet,delayed 81 mg PO HS 11/18/21 09/12/23 release hydrochlorothiazide 25 mg tablet 25 mg PO QAM 11/18/21 09/12/23 losartan 100 mg tablet 100 mg PO QAM 11/18/21 09/12/23 metoprolol tartrate 25 mg tablet 25 mg PO BID 06/10/23 09/12/23 sertraline 50 mg tablet 50 mg PO HS 06/10/23 09/12/23 vitamin B complex 1 tab PO DAILY 06/10/23 09/12/23 cholecalciferol (vitamin D3) 125 125 mcg PO PM 06/26/23 09/12/23 mcg (5,000 unit) tablet (Vitamin D3) atorvastatin 20 mg tablet 20 mg PO DAILY 09/12/23 09/12/23 mirabegron 50 mg tablet,extended 50 mg PO QAM 09/12/23 09/12/23 release 24 hr (Myrbetriq) potassium chloride 20 mEq See Rx Instructions .Route .COMPLEX 09/12/23 09/12/23 tablet,extended release(part/cryst) Previous Rx's Medication Instructions Recorded sennosides 8.6 mg-docusate sodium 1 - 2 tab-cap (1 - 2 x 8.6-50 mg) 06/26/23 50 mg tablet (Senokot-S) PO BID PRN constipation #60 tabs Results & Data (ED) Vital Signs Vital Signs - 24 hr 09/12/23 11:30 09/12/23 12:21 09/12/23 12:30 Temperature 36.8 C Temperature Source Oral Pulse Rate 62 Respiratory Rate 18 18 Respiratory Effort / Characteristics Non-Labored Spontaneous Non-Labored Respiratory Depth Normal Normal Respiratory Pattern Regular Blood Pressure 163/87 H Blood Pressure Mean 112 Pulse Oximetry 95 94 94 Oxygen Delivery Method Room Air Room Air Room Air Sepsis Recent Fever Within 48 Hours Yes Sepsis New/Unexplained Change in Mental Status N/A Sepsis Action Taken by Nursing No Action Required 09/12/23 14:00 Temperature Temperature Source Pulse Rate 52 L Respiratory Rate Respiratory Effort / Characteristics Respiratory Depth Respiratory Pattern Blood Pressure Blood Pressure Mean Pulse Oximetry Oxygen Delivery Method Sepsis Recent Fever Within 48 Hours Sepsis New/Unexplained Change in Mental Status Sepsis Action Taken by Nursing Laboratory Data 09/12/23 12:14 09/12/23 12:14 Lab Results 09/12/23 09/12/23 09/12/23 Range/Units 12:14 12:18 12:56 WBC 19.39 H (4.8-10.8) K/ul RBC 4.09 L (4.70-6.10) M/uL Hgb 12.6 L (14.0-18.0) g/dl Hct 36.2 L (42.0-52.0) % MCV 88.5 (80.0-100.0) fL MCH 30.8 (25.0-34.0) pg MCHC 34.8 (32.0-36.0) g/dL RDW Std Deviation 45.6 (36.4-46.3) fL RDW Coeff of Belen 14.1 (11.5-14.5) % Plt Count 157 (130-400) K/uL MPV 10.2 (9.4-12.4) fL Immature Gran % (Auto) 0.7 % Neut % (Auto) 83.1 % Lymph % (Auto) 5.1 % [place] % (Auto) 10.8 % Eos % (Auto) 0.1 % Baso % (Auto) 0.2 % Neut # (Auto) 16.12 H (1.40-6.50) K/uL Lymph # (Auto) 0.98 L (1.20-3.40) K/uL [place] # (Auto) 2.09 H (0.11-0.59) K/uL Eos # (Auto) 0.02 (0.00-0.50) K/uL Baso # (Auto) 0.04 (0.00-0.20) K/uL Immature Gran # (Auto) 0.14 (0.01-0.20) K/uL PT 12.4 H (9.0-12.0) Seconds INR 1.1 (0.9-1.1) Sodium 134 L (136-145) mmol/L Potassium 3.1 L (3.5-5.1) mmol/L Chloride 96 L (98-107) mmol/L Carbon Dioxide 28 (21-32) mmol/L Anion Gap 10 (3-11) BUN 15 (6-23) mg/dl Creatinine 0.80 (0.6-1.4) mg/dl Est Cr Clr Drug Dosing 113.7 ml/min Est GFR ( Amer) 100.6 ml/min Est GFR (Non-Af Amer) 86.8 ml/min BUN/Creatinine Ratio 18.8 (10-20) Glucose 150 H (70-99(Fasting)) mg/dl Lactate 1.4 (0.4-2.0) mmol/L Calcium 9.9 (8.6-10.3) mg/dl Magnesium 1.7 (1.7-2.4) mg/dl Total Bilirubin 1.2 H (0.2-1.0) mg/dl AST 14 (13-39) U/L ALT 12 (7-52) U/L Alkaline Phosphatase 56 (34-104) U/L Total Creatine Kinase 95 (30-223) U/L Troponin I High Sens 22.0 H (0-20) pg/ml Total Protein 6.9 (6.0-8.3) gm/dl Albumin 3.6 (3.4-5.0) gm/dl Globulin 3.3 (2.5-4.0) gm/dl Albumin/Globulin Ratio 1.1 (0.9-2) Lipase 9 L (11-82) U/L Procalcitonin 0.06 (0-0.5) ng/ml TSH 3.953 (0.300-4.500) uIu/ml Urine Color Dark Yellow Urine Appearance Clear (Clear) Urine pH 6.5 (4.5-7.5) Ur Specific [place] 1.022 (1.000-1.030) Urine Protein 2+ H (Negative) Urine Glucose (UA) Negative (Negative) Urine Ketones Trace H (Negative) Urine Blood 2+ H (Negative) Urine Nitrite Negative (Negative) Urine Bilirubin 1+ H (Negative) Urine Urobilinogen Negative (Negative) Ur Leukocyte Esterase Trace H (Negative) Urine WBC (Auto) 1-5 (0-5) /hpf Urine RBC (Auto) >30 H (0-4) /hpf U Hyaline Cast (Auto) 5-10 H (0-5) /lpf U Epithel Cells (Auto) 20-30 H (0-5) /lpf Urine Bacteria (Auto) Negative (Negative) Adenovirus (PCR) Not Detected (NotDetected) B. pertussis DNA (PCR) Not Detected (NotDetected) B.parapertussis DNA PCR Not Detected (NotDetected) C. pneumoniae DNA (PCR) Not Detected (NotDetected) Coronavirus OC43 (PCR) Not Detected (NotDetected) Coronavirus HKU1 (PCR) Not Detected (NotDetected) Coronavirus 229E (PCR) Not Detected (NotDetected) SARS-CoV-2 (PCR) Not Detected (NotDetected) Coronavirus NL63 (PCR) Not Detected (NotDetected) Human Metapneumovir PCR Not Detected (NotDetected) Influenza Type A (PCR) Not Detected (NotDetected) Influenza Type B (PCR) Not Detected (NotDetected) M. pneumoniae (PCR) Not Detected (NotDetected) Parainfluenza 1 (PCR) Not Detected (NotDetected) Parainfluenza 2 (PCR) Not Detected (NotDetected) Parainfluenza 3 (PCR) Not Detected (NotDetected) Parainfluenza 4 (PCR) Not Detected (NotDetected) RSV (PCR) Not Detected (NotDetected) Entero/Rhino (PCR) Not Detected (NotDetected) 09/12/23 Range/Units 14:16 WBC (4.8-10.8) K/ul RBC (4.70-6.10) M/uL Hgb (14.0-18.0) g/dl Hct (42.0-52.0) % MCV (80.0-100.0) fL MCH (25.0-34.0) pg MCHC (32.0-36.0) g/dL RDW Std Deviation (36.4-46.3) fL RDW Coeff of Belen (11.5-14.5) % Plt Count (130-400) K/uL MPV (9.4-12.4) fL Immature Gran % (Auto) % Neut % (Auto) % Lymph % (Auto) % [place] % (Auto) % Eos % (Auto) % Baso % (Auto) % Neut # (Auto) (1.40-6.50) K/uL Lymph # (Auto) (1.20-3.40) K/uL [place] # (Auto) (0.11-0.59) K/uL Eos # (Auto) (0.00-0.50) K/uL Baso # (Auto) (0.00-0.20) K/uL Immature Gran # (Auto) (0.01-0.20) K/uL PT (9.0-12.0) Seconds INR (0.9-1.1) Sodium (136-145) mmol/L Potassium (3.5-5.1) mmol/L Chloride (98-107) mmol/L Carbon Dioxide (21-32) mmol/L Anion Gap (3-11) BUN (6-23) mg/dl Creatinine (0.6-1.4) mg/dl Est Cr Clr Drug Dosing ml/min Est GFR ( Amer) ml/min Est GFR (Non-Af Amer) ml/min BUN/Creatinine Ratio (10-20) Glucose (70-99(Fasting)) mg/dl Lactate (0.4-2.0) mmol/L Calcium (8.6-10.3) mg/dl Magnesium (1.7-2.4) mg/dl Total Bilirubin (0.2-1.0) mg/dl AST (13-39) U/L ALT (7-52) U/L Alkaline Phosphatase (34-104) U/L Total Creatine Kinase (30-223) U/L Troponin I High Sens 20.5 H (0-20) pg/ml Total Protein (6.0-8.3) gm/dl Albumin (3.4-5.0) gm/dl Globulin (2.5-4.0) gm/dl Albumin/Globulin Ratio (0.9-2) Lipase (11-82) U/L Procalcitonin (0-0.5) ng/ml TSH (0.300-4.500) uIu/ml Urine Color Urine Appearance (Clear) Urine pH (4.5-7.5) Ur Specific [place] (1.000-1.030) Urine Protein (Negative) Urine Glucose (UA) (Negative) Urine Ketones (Negative) Urine Blood (Negative) Urine Nitrite (Negative) Urine Bilirubin (Negative) Urine Urobilinogen (Negative) Ur Leukocyte Esterase (Negative) Urine WBC (Auto) (0-5) /hpf Urine RBC (Auto) (0-4) /hpf U Hyaline Cast (Auto) (0-5) /lpf U Epithel Cells (Auto) (0-5) /lpf Urine Bacteria (Auto) (Negative) Adenovirus (PCR) (NotDetected) B. pertussis DNA (PCR) (NotDetected) B.parapertussis DNA PCR (NotDetected) C. pneumoniae DNA (PCR) (NotDetected) Coronavirus OC43 (PCR) (NotDetected) Coronavirus HKU1 (PCR) (NotDetected) Coronavirus 229E (PCR) (NotDetected) SARS-CoV-2 (PCR) (NotDetected) Coronavirus NL63 (PCR) (NotDetected) Human Metapneumovir PCR (NotDetected) Influenza Type A (PCR) (NotDetected) Influenza Type B (PCR) (NotDetected) M. pneumoniae (PCR) (NotDetected) Parainfluenza 1 (PCR) (NotDetected) Parainfluenza 2 (PCR) (NotDetected) Parainfluenza 3 (PCR) (NotDetected) Parainfluenza 4 (PCR) (NotDetected) RSV (PCR) (NotDetected) Entero/Rhino (PCR) (NotDetected) Administered Medications Metronidazole (Flagyl) 500 mg in 100 mls @ 100 mls/hr IV Q8H [facility]; Protocol Stop: 09/22/23 16:29 Last Admin: 09/12/23 17:54 Dose: 100 mls/hr Documented By: MUSTAPHA Sodium Chloride (Nss) 1,000 mls @ 70 mls/hr IV .[id number] ODIN Stop: 09/13/23 06:40 Last Admin: 09/12/23 17:56 Dose: 70 mls/hr Documented By: MUSTAPHA Discontinued Medications Fentanyl Citrate (Fentanyl Citrate Pf 100 Mcg/2 Ml Vial) 50 mcg IV NOW STA Stop: 09/12/23 13:23 Last Admin: 09/12/23 13:38 Dose: 50 mcg Documented By: QUINTON Sodium Chloride (Nss) 500 mls @ 999 mls/hr IV .Q31M ONE Stop: 09/12/23 13:25 Last Infusion: 09/12/23 14:23 Dose: Infused Documented By: Admin: 09/12/23 13:44 Dose: 999 mls/hr Documented By: QUINTON Metronidazole (Flagyl) 500 mg in 100 mls @ 100 mls/hr IV NOW STA; Protocol Stop: 09/12/23 14:09 Last Infusion: 09/12/23 15:16 Dose: Infused Documented By: Admin: 09/12/23 13:45 Dose: 100 mls/hr Documented By: QUINTON Cefepime HCl (Maxipime) 2,000 mg in 20 mls @ 5 mls/min IV NOW STA; Protocol Stop: 09/12/23 13:13 Last Admin: 09/12/23 13:39 Dose: 5 mls/min Documented By: QUINTON Ioversol (Optiray 320 125ml) 119 ml IV ONCE ONE Stop: 09/12/23 12:33 Last Admin: 09/12/23 12:32 Dose: 119 ml Documented By: KARAN Ondansetron HCl (Ondansetron Inj 2 Mg/Ml 2 Ml Vial) 4 mg IV NOW STA Stop: 09/12/23 11:53 Last Admin: 09/12/23 12:42 Dose: 4 mg Documented By: NAKIA Imaging Data Radiologist's Impression: Chest X-Ray 09/12/23 11:37 XR chest 1V portable HISTORY: 78 years-old Male weakness acute weakness COMPARISON: CTA chest of same day TECHNIQUE: AP view of the chest FINDINGS: Cardiac silhouette is enlarged. No pneumothorax, pleural effusion or overt pulmonary edema. Mild subsegmental bibasilar atelectasis. Right IJ [id number]-[id number] catheter distal tip terminates in the right atrium. Degenerative changes of the shoulders and spine. IMPRESSION: Cardiomegaly without acute process. ACT 112: Negative or not required by law. The above report was generated using voice recognition software. It may contain grammatical, syntax or spelling errors. Electronically signed by: Flaquito Clemente M.D. 09/12/2023 1:36 PM Abdomen/Pelvis CT 09/12/23 11:[address] WITH IV CONTRAST CT DOSE: 2559.27 mGy.cm HISTORY: Right upper quadrant pain, shortness of breath, weak, fevers TECHNIQUE: Multiaxial CT images of the abdomen and pelvis were performed following the use of intravenous contrast. A dose lowering technique was utilized adhering to the principles of ALARA. COMPARISON STUDY: None. FINDINGS: The lung bases will be reported on the same day chest CTA. No pneumoperitoneum. No pneumatosis. No acute fractures. Partially visualized catheter at the superior cavoatrial junction. Small fat-containing bilateral hernias are noted. Distended gallbladder with gallbladder wall thickening and a few small stones in the gallbladder neck. There is also pericholecystic inflammatory change/edema. Therefore, these findings are consistent with acute cholecystitis. Normal caliber common bile duct. The main portal vein is patent. No hepatic or splenic masses. The adrenal glands, pancreas, and kidneys are unremarkable. No hydronephrosis. A few prominent periportal lymph nodes are likely reactive. Otherwise, no retroperitoneal lymphadenopathy. Mild aneurysmal dilatation of the abdominal aorta measuring up to 3 cm in diameter. 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 No pelvic lymphadenopathy or pelvic free fluid. Mild bladder wall thickening. This could be due to underdistention. No dilated loops of bowel to suggest obstruction. Trace pelvic free fluid. Normal appendix. No bowel wall thickening. IMPRESSION: 1. Above findings are highly suspicious for acute cholecystitis. Surgical consultation recommended. 2. 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 3. Trace pelvic free fluid. 4. Mild bladder wall thickening. This could be due to underdistention. Recommend correlation with urinalysis. ACT 112: Negative or not required by law. Electronically signed by: Andi Browning M.D. 09/12/2023 1:10 PM Chest CTA 09/12/23 11:47 CT angio chest PE protocol HISTORY: 78 years-old Male with PE, RUq pain, SOB. Acute weakness with shortness of breath TECHNIQUE: Multiple CTA images of the chest were obtained after the intravenous administration of 119 ml Optiray. Coronal and sagittal MIPS were obtained from the axial data set and were submitted for review. All measurements were obtained according to NASCET criteria. A dose lowering technique was utilized adhering to the principles of ALARA. COMPARISON: CT abdomen and pelvis of same day, CTA chest 06/10/2023 FINDINGS: CTA: The heart is moderately enlarged. There is no pericardial effusion. Moderate coronary artery calcifications. Atherosclerosis of the thoracic aorta. No thoracic aortic aneurysm or dissection. Right IJ [id number] catheter distal tip terminates within the right atrium. Limited evaluation of the segmental and subsegmental pulmonary arterial branches secondary to respiratory motion artifact. No pulmonary emboli identified. CT CHEST: Unremarkable thyroid. No lymphadenopathy. No pneumothorax or overt pulmonary edema. There is an irregular 1.5 x 0.7 cm nodule within the apical segment right upper lobe on image 179 series 4 which is new from prior. Mild linear subsegmental bibasilar atelectasis. Central airways are patent. The gallbladder is distended with wall thickening and pericholecystic inflammation. Unremarkable soft tissues. No acute fracture. The bones appear intact. IMPRESSION: 1. Cardiomegaly without pulmonary emboli identified. 2. Partially imaged distended gallbladder with wall thickening and pericholecystic inflammation suggestive of acute cholecystitis. Please refer to the CT abdomen and pelvis study of same day. 3. Subpleural irregular 1.5 cm nodular opacity of the apical segment right upper lobe is new from prior which may represent scarring however a three-month follow-up chest CT is recommended to further evaluate. ACT 112: Negative or not required by law. The above report was generated using voice recognition software. It may contain grammatical, syntax or spelling errors. Electronically signed by: Flaquito Clemente M.D. 09/12/2023 12:52 PM Gallbladder Ultrasound 09/12/23 13:53 ULTRASOUND RIGHT UPPER QUADRANT ABDOMEN CLINICAL HISTORY: Right upper quadrant abdominal pain. COMPARISON STUDY: Abdominal CT dated 09/12/2023. TECHNIQUE: Real-time, grayscale, and color flow sonography of the right upper quadrant of the abdomen was performed. Images are reviewed in the transverse and longitudinal planes. FINDINGS: Liver: The liver is normal in size and echotexture. There is no intrahepatic biliary ductal dilatation. The main portal vein is patent. Gallbladder: The gallbladder is markedly distended measuring 13.8 cm in length. There are gallstones and biliary sludge. The gallbladder wall is thickened/edematous, measuring up to 6 mm. Trace pericholecystic fluid is noted. A sonographic Helton's sign is reportedly present. The common bile duct measures up to 0.5 cm in diameter. Pancreas: Not visualized due to overlying bowel gas. Right kidney: Survey images of the right kidney demonstrate normal size and echotexture. There is no hydronephrosis. Ascites: There is trace perihepatic fluid. IMPRESSION: Acute cholecystitis. Surgical assessment is advised. ACT 112: Negative or not required by law. Electronically signed by: David Gonzalez M.D. 09/12/2023 5:09 PM Discharge Plan Visit Data Chief Complaint: Pain (Generalized) Stated Complaint: EVERYTHING HURTS ED Provider: Ignacio Macias Discharge Problem: Acute cholecystitis, Nausea Patient Disposition: Being Evaluated by Hospitalist Discharge Instructions Interventions: ED Discharge Assessment Last Done: 09/12/23 16:22
[2023-09-12] MEDS: OPTIRAY 320 125ml IV ONE (12:32)
[2023-09-12 12:34] LABS: Basophils # (auto) 0.04 K/uL (0.00-0.20); Basophils % (auto) 0.2 %; Eosinophils # (auto) 0.02 K/uL (0.00-0.50); Eosinophils % (auto) 0.1 %; Hematocrit (blood only) 36.2 % (42.0-52.0); Hemoglobin 12.6 g/dl (14.0-18.0); Immature Granulocytes # (auto) 0.14 K/uL (0.01-0.20); Immature Granulocytes % (auto) 0.7 %; Lymphocytes # (auto) 0.98 K/uL (1.20-3.40); Lymphocytes % (auto) 5.1 %; Mean Corpuscular Hemoglobin 30.8 pg (25.0-34.0); Mean Corpuscular Hgb Conc 34.8 g/dL (32.0-36.0); Mean Corpuscular Volume 88.5 fL (80.0-100.0); Mean Platelet Volume 10.2 fL (9.4-12.4); Monocytes # (auto) 2.09 K/uL (0.11-0.59); Monocytes % (auto) 10.8 %; Neutrophils # (auto) 16.12 K/uL (1.40-6.50); Neutrophils % (auto) 83.1 %; Platelet Count 157 K/uL (130-400); RDW Coefficient of Variation 14.1 % (11.5-14.5); RDW Standard Deviation 45.6 fL (36.4-46.3); Red Blood Count 4.09 M/uL (4.70-6.10); White Blood Count 19.39 K/ul (4.8-10.8)
[2023-09-12 12:35] LABS: Appearance Urine Clear (Clear); Bacteria Urine Automated Negative (Negative); Blood Urine 2+ (Negative); Color Urine Dark Yellow; Epithelial Cell Urine Auto 20-30 /lpf (0-5); Glucose Urine UA Negative (Negative); Ketones Urine Trace (Negative); Leukocyte Esterase Urine Trace (Negative); Nitrite Urine Negative (Negative); Protein Urine 2+ (Negative); RBC Urine Automated >30 /hpf (0-4); Specific Gravity Urine 1.022 (1.000-1.030); Urobilinogen Urine Negative (Negative); pH Urine 6.5 (4.5-7.5)
[2023-09-12] MEDS: ONDANSETRON INJ 2 MG/ML 2 ML VIAL IV STA (12:42)
--- NOTE | 2023-09-12 12:53 | CT Scan Report ---
CT angio chest PE protocol HISTORY: 78 years-old Male with PE, RUq pain, SOB. Acute weakness with shortness of breath TECHNIQUE: Multiple CTA images of the chest were obtained after the intravenous administration of 119 ml Optiray. Coronal and sagittal MIPS were obtained from the axial data set and were submitted for review. All measurements were obtained according to NASCET criteria. A dose lowering technique was u tilized adhering to the principles of ALARA. COMPARISON: CT abdomen and pelvis of same day, CTA chest 06/10/2023 FINDINGS: CTA: The heart is moderately enlarged. There is no pericardial effusion. Moderate coronary artery calcific ations. Atherosclerosis of the thoracic aorta. No thoracic aortic aneurysm or dissection. Right IJ In fuse-a-Port catheter distal tip terminates within the right atrium. Limited evaluation of the segment al and subsegmental pulmonary arterial branches secondary to respiratory motion artifact. No pulmonar y emboli identified. CT CHEST: Unremarkable thyroid. No lymphadenopathy. No pneumothorax or overt pulmonary edema. There is an irreg ular 1.5 x 0.7 cm nodule within the apical segment right upper lobe on image 179 series 4 which is ne w from prior. Mild linear subsegmental bibasilar atelectasis. Central airways are patent. The gallbladder is distended with wall thickening and pericholecystic inflammation. Unremarkable soft tissues. No acute fracture. The bones appear intact. IMPRESSION: 1. Cardiomegaly without pulmonary emboli identified. 2. Partially imaged distended gallbladder with wall thickening and pericholecystic inflammation sugge stive of acute cholecystitis. Please refer to the CT abdomen and pelvis study of same day. 3. Subpleural irregular 1.5 cm nodular opacity of the apical segment right upper lobe is new from tamanna or which may represent scarring however a three-month follow-up chest CT is recommended to further ev aluate. ACT 112: Negative or not required by law. The above report was generated using voice recognition software. It may contain grammatical, syntax o r spelling errors. Electronically signed by: Flaquito Clemente M.D. 09/12/2023 12:52 PM
[2023-09-12 12:54] LABS: Bilirubin Urine 1+ (Negative)
[2023-09-12 13:11] LABS: Albumin Globulin Ratio 1.1 (0.9-2); Albumin Level 3.6 gm/dl (3.4-5.0); BUN Creatinine Ratio 18.8 (10-20); Bilirubin,Total 1.2 mg/dl (0.2-1.0); Calcium 9.9 mg/dl (8.6-10.3); Creatinine Clr Calc Pharmacy 113.7 ml/min; Est GFR (African American) 100.6 ml/min; Est GFR (Non-African American) 86.8 ml/min; Globulin 3.3 gm/dl (2.5-4.0); Magnesium 1.7 mg/dl (1.7-2.4); Thyroid Stimulating Hormone 3.953 uIu/ml (0.300-4.500); Total Protein 6.9 gm/dl (6.0-8.3)
--- NOTE | 2023-09-12 13:12 | CT Scan Report ---
ABDOMEN AND PELVIS CT WITH IV CONTRAST CT DOSE: 2559.27 mGy.cm HISTORY: Right upper quadrant pain, shortness of breath, weak, fevers TECHNIQUE: Multiaxial CT images of the abdomen and pelvis were performed following the use of intrave nous contrast. A dose lowering technique was utilized adhering to the principles of ALARA. COMPARISON STUDY: None. FINDINGS: The lung bases will be reported on the same day chest CTA. No pneumoperitoneum. No pneumato sis. No acute fractures. Partially visualized catheter at the superior cavoatrial junction. Small fat -containing bilateral hernias are noted. Distended gallbladder with gallbladder wall thickening and a few small stones in the gallbladder neck. There is also pericholecystic inflammatory change/edema. T herefore, these findings are consistent with acute cholecystitis. Normal caliber common bile duct. Th e main portal vein is patent. No hepatic or splenic masses. The adrenal glands, pancreas, and kidneys are unremarkable. No hydronephrosis. A few prominent periportal lymph nodes are likely reactive. Oth erwise, no retroperitoneal lymphadenopathy. Mild aneurysmal dilatation of the abdominal aorta measuri ng up to 3 cm in diameter. 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 No pe lvic lymphadenopathy or pelvic free fluid. Mild bladder wall thickening. This could be due to underdi stention. No dilated loops of bowel to suggest obstruction. Trace pelvic free fluid. Normal appendix. No bowel wall thickening. IMPRESSION: 1. Above findings are highly suspicious for acute cholecystitis. Surgical consultation recommended. 2. 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 3. Trace pelvic free fluid. 4. Mild bladder wall thickening. This could be due to underdistention. Recommend correlation with uri nalysis. ACT 112: Negative or not required by law. Electronically signed by: Andi Browning M.D. 09/12/2023 1:10 PM
[2023-09-12 13:17] LABS: Potassium 3.1 mmol/L (3.5-5.1)
--- NOTE | 2023-09-12 13:37 | XRay Report ---
XR chest 1V portable HISTORY: 78 years-old Male weakness acute weakness COMPARISON: CTA chest of same day TECHNIQUE: AP view of the chest FINDINGS: Cardiac silhouette is enlarged. No pneumothorax, pleural effusion or overt pulmonary edema. Mild subs egmental bibasilar atelectasis. Right IJ Omugwj-v-Bgpw catheter distal tip terminates in the right at rium. Degenerative changes of the shoulders and spine. IMPRESSION: Cardiomegaly without acute process. ACT 112: Negative or not required by law. The above report was generated using voice recognition software. It may contain grammatical, syntax o r spelling errors. Electronically signed by: Flaquito Clemente M.D. 09/12/2023 1:36 PM
[2023-09-12] MEDS: fentaNYL citrate PF 100 MCG/2 ML VIAL IV STA (13:38)
[2023-09-12] MEDS: CEFEPIME 2,000 MG/20 ML VIAL IV STA (13:39)
[2023-09-12] MEDS: SODIUM CHLORIDE 0.9% 500 ML IV ONE (13:44)
[2023-09-12] MEDS: metroNIDAZOLE 500 MG/100 ML BAG IV STA (13:45)
[2023-09-12 13:50] LABS: Adenovirus PCR Not Detected (NotDetected); Bordetella parapertussis PCR Not Detected (NotDetected); Bordetella pertussis PCR Not Detected (NotDetected); Chlamydia pneumoniae PCR Not Detected (NotDetected); Coronavirus 229E PCR Not Detected (NotDetected); Coronavirus CoV-2 (COVID19)PCR Not Detected (NotDetected); Coronavirus HKU1 PCR Not Detected (NotDetected); Coronavirus NL63 PCR Not Detected (NotDetected); Coronavirus OC43PCR Not Detected (NotDetected); Human Metapneumovirus PCR Not Detected (NotDetected); Influenza A PCR Not Detected (NotDetected); Influenza B PCR Not Detected (NotDetected); Mycoplasma pneumoniae PCR Not Detected (NotDetected); Parainfluenza Virus 1 PCR Not Detected (NotDetected); Parainfluenza Virus 2 PCR Not Detected (NotDetected); Parainfluenza Virus 3 PCR Not Detected (NotDetected); Parainfluenza Virus 4 PCR Not Detected (NotDetected); Respiratory Syncytial VirusPCR Not Detected (NotDetected); Rhinovirus/Enterovirus PCR Not Detected (NotDetected)
[2023-09-12 13:57] LABS: INR 1.1 (0.9-1.1); Prothrombin Time 12.4 Seconds (9.0-12.0)
--- NOTE | 2023-09-12 14:45 | History & Physical Report ---
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 Acute Cholecystitis Possible Choledocholithiasis Pt presenting with 3 days of N/V and RUQ abdominal pain Notes fevers and chills at home Was seen by pcp today who recommended following up in the ED Has a leukocytosis at baseline but significantly more elevated on admission at 19K T bili elevated, other liver enzymes wnl CT abd/pelvis concerning for acute cholecystitis and a few stones in the gallbladder Gallbladder US pending Blood Cx x2 pending NPO, IVF, IV pain meds IV Cipro and Flagyl Consult GI- appreciate recs Consult General Surgery- appreciate recs EKG with sinus rhythm with occasional PVCs, hs trop elevated at 22-->20, repeat echo pending, pt with known mod-severe Hx of aortic stenosis, cardiology consult placed for surgical optimization/clearance. Pt is s/p TURP aborted in May 2022 due to bradycardia. Appreciate recs Cardiomegaly Trop Elevation hs trop elevated at 22-->20 EKG with sinus rhythm with occasional PVCs Repeat Echo pending Chest imaging noting cardiomegaly Doubt ACS Chronic Leukocytosis Was on high dose prednisone 80mg daily from May 29 to mid Jul 2023 Likely chronically elevated in that setting with an acute infectious component Continue with IV antibiotics as noted above Hypokalemia Replete as needed Hyponatremia Minimally decreased at 134 Continue to monitor at this time Hyperglycemia Glucose levels elevated at 150 Prediabetic Pt states he does not have a diagnosis of DM Currently NPO AM hgba1c pending Abdominal Aneurysm Iliac Artery aneurysm AAA noted on imaging, 3cm L common iliac artery aneurysm of 1.2cm PCP follow up for continued monitoring Subpleural Opacity Noted on Chest CT imaging new, In apical RUL [address] chest recommended Holding home po meds at this time with NPO status until further evaluation by GI and General Surgery. Other Chronic Medical problems: Hx of metastatic melanoma: Follows with Dermatology and HemeOnc. Was on keytruda, had immune mediated hepatitis and rhabdomyolysis, was on high dose prednisone 80mg taper from May 29 to mid Jul 2023 BCC, left calf- per Derm, pt notified on 08/30 HTN- on amlodipine, losartan, hctz, metoprolol HLD- on statin Hx of BPH, s/p TURP aborted in 2021 due to bradycardia- currently only on mybetriq Mood Disorder- on sertraline Vit D def- on supplements CODE STATUS: Full code per discussion with pt Diet: NPO DVT prophylaxis: Deferred in setting of need for surgery Dispo: Med/Surg with tele, pt requesting bariatric bed History of Present Illness Chief Complaint: Abdominal Pain Primary Care Provider: Sami Stephens DO Pt is a 66yoM with PMHx significant for moderate to severe aortic stenosis, Hx of sinus pauses (per [facility] chart review), SANDRINE on cpap, 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 History obtained from pt and present at bedside. Pt states that he has been having N/V as well as right sided abdominal pain for the past 2-3 days. States that he has been unable to tolerate food during this time and had one episode of emesis. States that he has also been having fevers and chills. No diarrhea but notes that he is typically constipated. Denies bloody stools. Was seen by his pcp for this today and referral to the ED was recommended. States that he recently completed an extended prednisone course after he had a reaction to Keytruda which was being used to treat his melanoma skin cancer. Notes that it had spread to a lymph node around his ear but not in his neck. States that he was hospitalized here in the past for some time and was not comfortable. State that he cannot sleep in the regular beds, ended up sleeping in a recliner. Concerned about his being at home alone. Allergies Allergy/AdvReac Type Severity Reaction Status Date / Time pembrolizumab [From [email or web address]] Allergy Severe SEE COMMENT Verified 09/12/23 13:47 aspartame Allergy Unknown Gastrointestinal Unverified 09/12/23 14:00 Upset Penicillins Allergy Unknown CAN'T Verified 09/12/23 13:47 REMEMBER Home Medications Medication Instructions Recorded Confirmed Type amlodipine 10 mg tablet 10 mg PO QAM 11/18/21 09/12/23 History aspirin 81 mg tablet,delayed 81 mg PO HS 11/18/21 09/12/23 History release hydrochlorothiazide 25 mg tablet 25 mg PO QAM 11/18/21 09/12/23 History losartan 100 mg tablet 100 mg PO QAM 11/18/21 09/12/23 History metoprolol tartrate 25 mg tablet 25 mg PO BID 06/10/23 09/12/23 History sertraline 50 mg tablet 50 mg PO HS 06/10/23 09/12/23 History vitamin B complex 1 tab PO DAILY 06/10/23 09/12/23 History cholecalciferol (vitamin D3) 125 125 mcg PO PM 06/26/23 09/12/23 History mcg (5,000 unit) tablet (Vitamin D3) sennosides 8.6 mg-docusate sodium 1 - 2 tab-cap (1 - 2 x 8.6-50 mg) 06/26/23 09/12/23 Rx 50 mg tablet (Senokot-S) PO BID PRN constipation #60 tabs atorvastatin 20 mg tablet 20 mg PO DAILY 09/12/23 09/12/23 History mirabegron 50 mg tablet,extended 50 mg PO QAM 09/12/23 09/12/23 History release 24 hr (Myrbetriq) potassium chloride 20 mEq See Rx Instructions .Route .COMPLEX 09/12/23 09/12/23 History tablet,extended release(part/cryst) Past Med/Surg History Medical History Prediabetes A1c on 05/27/23 - 6.3 Gouty arthritis 1st degree AV block BPH loc w urin obs/LUTS Moderate to severe aortic stenosis Impaired renal function History of colon polyps "MINOR" TO F/U IN 5-10 YRS Benign essential tremor "BENIGN TREMOR" MOSTLY HANDS SOB (shortness of breath) on exertion NOT WITH STAIRS, ON A HILL...WILL STOP AND RESOLVES WITH REST; ongoing x yrs without change or worsening Sleep apnea CPAP History of abnormal electrocardiogram 2-3 YR AGO, TESTING DONE...DX HEART MURMUR Hyperlipidemia Enlarged prostate HTN (hypertension) Surgical History S/P tonsillectomy History of cataract surgery History of colonoscopy History of tonsillectomy History of detached retina repair RIGHT Family History Father Family history of diabetes mellitus Heart disease Grandfather (Maternal) Heart disease Social History Smoking Status: Never smoker Second Hand Exposure: No; Do You Dip or Chew Tobacco: No (HX IN COLLEGE 50 YR AGO); Hx Alcohol Use: Yes Alcohol type: wine Hx Substance Use: No Preferred Language: Nicaraguan Communication Ability: Effective Communication Ability Comment: PT [facility] Scrap Collector Required: No Beliefs That Will Affect Care: None and Adventist Adventist Beliefs: MU-ISM Current Living Situation: Spouse and Family Current Living Situation Comment: AND SON COMES HOME FOR LONG WEEKENDS EVERY OTHER WEEK Feels Safe at Home: Yes Assistive Devices: CPAP Review of Systems Review of Systems: All systems reviewed & are unremarkable except as noted in Subjective Physical Exam Physical Exam: General: Alert, oriented. No acute distress Skin: Noted scar left side of mormon/scalp Psych: Appropriate mood and affect Neuro: Hearing loss. Otherwise no gross deficits HEENT: NC/AT Chest: Nontender to palpation. CV: RRR, + murmur appreciated Resp: Breath sounds clear bilaterally, no increased effort of breathing. Abdomen: Soft, tender in RUQ, nondistended. No guarding. Extremities: +++ edema in lower extremities bilaterally. Results & Data Results & Data Vital Signs (Past 12 Hours) Vital Signs Temp Pulse Resp BP Pulse Ox O2 Del Method 09/12/23 12:30 94 Room Air 09/12/23 12:21 18 94 Room Air 09/12/23 11:30 36.8 C 62 18 163/87 H 95 Room Air Diagnostic Findings Chest X-Ray 09/12/23 11:37 XR chest 1V portable HISTORY: 78 years-old Male weakness acute weakness COMPARISON: CTA chest of same day TECHNIQUE: AP view of the chest FINDINGS: Cardiac silhouette is enlarged. No pneumothorax, pleural effusion or overt pulmonary edema. Mild subsegmental bibasilar atelectasis. Right IJ Rowyrm-g-Sbwd catheter distal tip terminates in the right atrium. Degenerative changes of the shoulders and spine. IMPRESSION: Cardiomegaly without acute process. ACT 112: Negative or not required by law. The above report was generated using voice recognition software. It may contain grammatical, syntax or spelling errors. Electronically signed by: Flaquito Clemente M.D. 09/12/2023 1:36 PM Abdomen/Pelvis CT 09/12/23 11:[address] WITH IV CONTRAST CT DOSE: 2559.27 mGy.cm HISTORY: Right upper quadrant pain, shortness of breath, weak, fevers TECHNIQUE: Multiaxial CT images of the abdomen and pelvis were performed following the use of intravenous contrast. A dose lowering technique was utilized adhering to the principles of ALARA. COMPARISON STUDY: None. FINDINGS: The lung bases will be reported on the same day chest CTA. No pneumoperitoneum. No pneumatosis. No acute fractures. Partially visualized catheter at the superior cavoatrial junction. Small fat-containing bilateral hernias are noted. Distended gallbladder with gallbladder wall thickening and a few small stones in the gallbladder neck. There is also pericholecystic inflammatory change/edema. Therefore, these findings are consistent with acute cholecystitis. Normal caliber common bile duct. The main portal vein is patent. No hepatic or splenic masses. The adrenal glands, pancreas, and kidneys are unremarkable. No hydronephrosis. A few prominent periportal lymph nodes are likely reactive. Otherwise, no retroperitoneal lymphadenopathy. Mild aneurysmal dilatation of the abdominal aorta measuring up to 3 cm in diameter. 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 No pelvic lymphadenopathy or pelvic free fluid. Mild bladder wall thickening. This could be due to underdistention. No dilated loops of bowel to suggest obstruction. Trace pelvic free fluid. Normal appendix. No bowel wall thickening. IMPRESSION: 1. Above findings are highly suspicious for acute cholecystitis. Surgical consultation recommended. 2. 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 3. Trace pelvic free fluid. 4. Mild bladder wall thickening. This could be due to underdistention. Recommend correlation with urinalysis. ACT 112: Negative or not required by law. Electronically signed by: Andi Browning M.D. 09/12/2023 1:10 PM Chest CTA 09/12/23 11:47 CT angio chest PE protocol HISTORY: 78 years-old Male with PE, RUq pain, SOB. Acute weakness with shortness of breath TECHNIQUE: Multiple CTA images of the chest were obtained after the intravenous administration of 119 ml Optiray. Coronal and sagittal MIPS were obtained from the axial data set and were submitted for review. All measurements were obtained according to NASCET criteria. A dose lowering technique was utilized adhering to the principles of ALARA. COMPARISON: CT abdomen and pelvis of same day, CTA chest 06/10/2023 FINDINGS: CTA: The heart is moderately enlarged. There is no pericardial effusion. Moderate coronary artery calcifications. Atherosclerosis of the thoracic aorta. No th oracic aortic aneurysm or dissection. Right IJ Sicxaj-z-Vzxx catheter distal tip terminates within the right atrium. Limited evaluation of the segmental and subsegmental pulmonary arterial branches secondary to respiratory motion artifact. No pulmonary emboli identified. CT CHEST: Unremarkable thyroid. No lymphadenopathy. No pneumothorax or overt pulmonary edema. There is an irregular 1.5 x 0.7 cm nodule within the apical segment right upper lobe on image 179 series 4 which is new from prior. Mild linear subsegmental bibasilar atelectasis. Central airways are patent. The gallbladder is distended with wall thickening and pericholecystic inflammation. Unremarkable soft tissues. No acute fracture. The bones appear intact. IMPRESSION: 1. Cardiomegaly without pulmonary emboli identified. 2. Partially imaged distended gallbladder with wall thickening and pericholecystic inflammation suggestive of acute cholecystitis. Please refer to the CT abdomen and pelvis study of same day. 3. Subpleural irregular 1.5 cm nodular opacity of the apical segment right upper lobe is new from prior which may represent scarring however a three-month follow-up chest CT is recommended to further evaluate. ACT 112: Negative or not required by law. The above report was generated using voice recognition software. It may contain grammatical, syntax or spelling errors. Electronically signed by: Flaquito Clemente M.D. 09/12/2023 12:52 PM Gallbladder Ultrasound 09/12/23 13:53 ULTRASOUND RIGHT UPPER QUADRANT ABDOMEN CLINICAL HISTORY: Right upper quadrant abdominal pain. COMPARISON STUDY: Abdominal CT dated 09/12/2023. TECHNIQUE: Real-time, grayscale, and color flow sonography of the right upper quadrant of the abdomen was performed. Images are reviewed in the transverse and longitudinal planes. FINDINGS: Liver: The liver is normal in size and echotexture. There is no intrahepatic biliary ductal dilatation. The main portal vein is patent. Gallbladder: The gallbladder is markedly distended measuring 13.8 cm in length. There are gallstones and biliary sludge. The gallbladder wall is thickened/edematous, measuring up to 6 mm. Trace pericholecystic fluid is noted. A sonographic Helton's sign is reportedly present. The common bile duct measures up to 0.5 cm in diameter. Pancreas: Not visualized due to overlying bowel gas. Right kidney: Survey images of the right kidney demonstrate normal size and echotexture. There is no hydronephrosis. Ascites: There is trace perihepatic fluid. IMPRESSION: Acute cholecystitis. Surgical assessment is advised. ACT 112: Negative or not required by law. Electronically signed by: David Gonzalez M.D. 09/12/2023 5:09 PM (5) Aortic stenosis Cardiac valve disease etiology: nonrheumatic Qualified Code(s): I35.0 - Nonrheumatic aortic (valve) stenosis
--- NOTE | 2023-09-12 14:56 | Electrocardiogram Report ---
Test Reason : Blood Pressure : / mmHG Vent. Rate : 066 BPM Atrial Rate : 066 BPM P-R Int : 200 ms QRS Dur : 082 ms QT Int : 424 ms P-R-T Axes : -13 -34 -19 degrees QTc Int : 444 ms Sinus rhythm with occasional Premature ventricular complexes Leftward axis Low voltage QRS Inferior infarct (cited on or before 10-JUN-2023) Possible Anterolateral infarct (cited on or before 10-JUN-2023) Abnormal ECG When compared with ECG of 10-JUN-2023 17:39, Fusion complexes are no longer Present Premature ventricular complexes are no longer Present Premature supraventricular complexes are no longer Present Nonspecific T wave abnormality now evident in Lateral leads Confirmed by Jose Thornton ([id number]) on 09/12/2023 2:55:46 PM Referred By: REFERRED SELF Confirmed By:Jose Thornton
--- NOTE | 2023-09-12 15:51 | Surgery Consultation ---
Date of Consultation September 12, 2023 Assessment & Plan (1) Acute cholecystitis: IVF and IV antibiotics NPO medically clear per medicine US to OR in AM consent and risks explained in detail History of Present Illness History of Present Illness This is a 78-year-old YO with 3 days of fevers and abdominal pain. He has had nausea and decreased intake. Seen in an outpatient clinic and referred to ED. A CT scan shows acute cholecystitis with WBC of 19 and TB of 1.2. Allergies Allergy/AdvReac Type Severity Reaction Status Date / Time pembrolizumab [From Loudeye] Allergy Severe SEE COMMENT Verified 09/12/23 13:47 aspartame Allergy Unknown Gastrointestinal Unverified 09/12/23 14:00 Upset Penicillins Allergy Unknown CAN'T Verified 09/12/23 13:47 REMEMBER Home Medications Medication Instructions Recorded Confirmed Type amlodipine 10 mg tablet 10 mg PO QAM 11/18/21 09/12/23 History aspirin 81 mg tablet,delayed 81 mg PO HS 11/18/21 09/12/23 History release finasteride 5 mg tablet 0 mg PO QAM 11/18/21 09/12/23 History hydrochlorothiazide 25 mg tablet 25 mg PO QAM 11/18/21 09/12/23 History losartan 100 mg tablet 100 mg PO QAM 11/18/21 09/12/23 History metoprolol tartrate 25 mg tablet 25 mg PO BID 06/10/23 09/12/23 History sertraline 50 mg tablet 50 mg PO HS 06/10/23 09/12/23 History solifenacin 5 mg tablet (Vesicare) 0 mg PO DAILY PRN urinary frequency 06/10/23 09/12/23 History vitamin B complex 1 tab PO DAILY 06/10/23 09/12/23 History cholecalciferol (vitamin D3) 125 125 mcg PO PM 06/26/23 09/12/23 History mcg (5,000 unit) tablet (Vitamin D3) sennosides 8.6 mg-docusate sodium 1 - 2 tab-cap (1 - 2 x 8.6-50 mg) 06/26/23 09/12/23 Rx 50 mg tablet (Senokot-S) PO BID PRN constipation #60 tabs Patient History Medical History Prediabetes A1c on 05/27/23 - 6.3 Gouty arthritis 1st degree AV block BPH loc w urin obs/LUTS Moderate to severe aortic stenosis Impaired renal function History of colon polyps "MINOR" TO F/U IN 5-10 YRS Benign essential tremor "BENIGN TREMOR" MOSTLY HANDS SOB (shortness of breath) on exertion NOT WITH STAIRS, ON A HILL...WILL STOP AND RESOLVES WITH REST; ongoing x yrs without change or worsening Sleep apnea CPAP History of abnormal electrocardiogram 2-3 YR AGO, TESTING DONE...DX HEART MURMUR Hyperlipidemia Enlarged prostate HTN (hypertension) Surgical History S/P tonsillectomy History of cataract surgery History of colonoscopy History of tonsillectomy History of detached retina repair RIGHT Family History Father Family history of diabetes mellitus Heart disease Grandfather (Maternal) Heart disease Social History Smoking Status: Never smoker Second Hand Exposure: No; Do You Dip or Chew Tobacco: No (HX IN COLLEGE 50 YR AGO); Hx Alcohol Use: Yes Alcohol type: wine Hx Substance Use: No Preferred Language: Macedonian Communication Ability: Effective Communication Ability Comment: PT [facility] Special Events Driver Required: No Beliefs That Will Affect Care: None and Taoism Taoism Beliefs: ORTHODOX Current Living Situation: Spouse and Family Current Living Situation Comment: AND SON COMES HOME FOR LONG WEEKENDS EVERY OTHER WEEK Feels Safe at Home: Yes Assistive Devices: CPAP Review of Systems Constitutional: + fever, + chills, + fatigue and + anore micaela Eyes: no problem reported Ear, Nose, Mouth, Throat: no problem reported Respiratory: + dyspnea and + pain on inspiration; no cough Cardiovascular: + chest pain Gastrointestinal: + abdominal pain and + nausea; no vomiti ng and no change in bowel habits Genitourinary: no dysuria Musculoskeletal: + back pain; no neck pain and no joint p ain Integumentary: + lesions (malignant melanoma s/p resect ion on RX) Neurologic: + generalized weakness; no localized wea kness Psychiatric: no behavioral changes Endocrine: + fatigue Hematologic / Lymphatic: no easy bleeding and no easy bruising Physical Exam Constitutional: WD/WN, vitals as above Eyes: PERRL, conjunctivae normal, anicteric sclerae ENMT: external ear and nose normal, oropharynx normal Respiratory: normal respiratory effort, lungs clear to auscultation Cardiovascular: RRR, no murmur, no edema Gastrointestinal (Abdomen): Inspection/Auscultation: abdomen normal to inspection and normal bowel sounds; abdomen not distended Percussion/Palpation: + abdomen tender and abdomen soft; no guarding and abdomen not rigid Musculoskeletal: Head/Neck/Chest: normocephalic and head atraumatic Skin: no rashes, warm and dry Results & Data Vital Signs (Past 12 Hours) Vital Signs Temp Pulse Resp BP Pulse Ox O2 Del Method 09/12/23 14:00 52 L 09/12/23 12:30 94 Room Air 09/12/23 12:21 18 94 Room Air 09/12/23 11:30 36.8 C 62 18 163/87 H 95 Room Air Diagnostic Findings ABDOMEN AND PELVIS CT WITH IV CONTRAST CT DOSE: 2559.27 mGy.cm HISTORY: Right upper quadrant pain, shortness of breath, weak, fevers TECHNIQUE: Multiaxial CT images of the abdomen and pelvis were performed following the use of intravenous contrast. A dose lowering technique was utilized adhering to the principles of ALARA. COMPARISON STUDY: None. FINDINGS: The lung bases will be reported on the same day chest CTA. No pneumoperitoneum. No pneumatosis. No acute fractures. Partially visualized catheter at the superior cavoatrial junction. Small fat-containing bilateral hernias are noted. Distended gallbladder with gallbladder wall thickening and a few small stones in the gallbladder neck. There is also pericholecystic inf lammatory change/edema. Therefore, these findings are consistent with acute cholecystitis. Normal caliber common bile duct. The main portal vein is patent. No hepatic or splenic masses. The adrenal glands, pancreas, and kidneys are unremarkable. No hydronephrosis. A few prominent periportal lymph nodes are likely reactive. Otherwise, no retroperitoneal lymphadenopathy. Mild aneurysmal dilatation of the abdominal aorta measuring up to 3 cm in diameter. 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 No pelvic lymphadenopathy or pelvic free fluid. Mild bladder wall thickening. This could be due to underdistention. No dilated loops of bowel to suggest obstruction. Trace pelvic free fluid. Normal appendix. No bowel wall thickening. IMPRESSION: 1. Above findings are highly suspicious for acute cholecystitis. Surgical consultation recommended. 2. 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 3. Trace pelvic free fluid. 4. Mild bladder wall thickening. This could be due to underdistention. Recommend correlation with urinalysis.
--- OUTSIDE RECORDS SUMMARY | 2023-09-12 16:14 | External Medical Summary ---
Author Name Unknown Address Unknown Organization [facility] [address] [place] [address] Laboratory Report Ordering Provider Test Date Status DANIEL JACK 09/12/2023 09:58:01 Final Observation Date Value Abnormality Reference (Units ) Status BUN 09/12/2023 09:58:01 13 6-20 (mg/dL) Final Creatinine 09/12/2023 09:58:01 0.9 0.6-1.2 (mg/dL) Final Glomerular filtration rate/1.73 sq M.predicted [Volume Rate/Area] in Serum, Plasma or Blood by Creatinine-based formula (CKD-EPI) 09/12/2023 09:58:01 86 >=60 (mL/min) Final eGFR is calculated based on the CKD-EPI 2020 equation SODIUM 09/12/2023 09:58:01 136 135-146 (m mol/L) Final Potassium 09/12/2023 09:58:01 3.8 3.5-5.1 (m mol/L) Final Cl 09/12/2023 09:58:01 96 Below low normal 98- 107 (mmol/L) Final CO2 09/12/2023 09:58:01 29 22-32 (mmo l/L) Final Anion gap 09/12/2023 09:58:01 11 7-15 (mmol /L) Final Glucose 09/12/2023 09:58:01 174 Above high normal 70 -120 (mg/dL) Final Albumin 09/12/2023 09:58:01 4.0 3.8-5.0 (g /dL) Final AST (Aspartate aminotransferase) 09/12/2023 09:58:01 17 10-50 (U/L) Fin al Alk Phos 09/12/2023 09:58:01 64 35-130 (U/ L) Final Bilirubin, Total 09/12/2023 09:58:01 1.0 <=1 .2 (mg/dL) Final Calcium 09/12/2023 09:58:01 10.4 Above high normal 8. 4-10.2 (mg/dL) Final Protein 09/12/2023 09:58:01 7.4 6.0-8.3 (g /dL) Final ALT (Alanine aminotransferase) 09/12/2023 09:58:01 16 10-50 (U/L) Hardik hopkins Performing Location [facility] [address] [facility] [address]
--- OUTSIDE RECORDS SUMMARY | 2023-09-12 16:14 | External Medical Summary ---
Author Name Unknown Address Unknown Organization [facility] [place] [address] [place] [address] Laboratory Report Ordering Provider Test Date Status DANIEL JACK 09/12/2023 09:58:01 Final Observation Date Value Abnormality Reference (Units ) Status SYNC LEUKOCYTES IN BLOOD BY AUTOMATED COUNT 09/12/2023 09:58:01 19.10 Above high normal 4.00-10.80 (K/uL) Final Segs 09/12/2023 09:58:01 84.6 Above high normal 40.0-75.0 (%) Final Lymphs % 09/12/2023 09:58:01 6.2 Below low normal 18.0-42.0 (%) Final Monos 09/12/2023 09:58:01 8.9 1.0-11.0 (%) Final Eosinophils 09/12/2023 09:58:01 0.1 0.0-6.0 (%) Final Basos 09/12/2023 09:58:01 0.2 0.0-2.0 (%) Final Absolute Segs 09/12/2023 09:58:01 16.17 Above high normal 1.80-7.70 (K/uL) Final Lymphs, absolute 09/12/2023 09:58:01 1.18 1.00-4.80 (K/ul) Final Monos, Abs 09/12/2023 09:58:01 1.70 Above high normal 0.00-1.10 (K/uL) Final Eos, Abs 09/12/2023 09:58:01 0.02 0.00-0.70 (K/uL) Final Basos, Abs 09/12/2023 09:58:01 0.03 0.00-0.20 (K/uL) Final Performing Location [facility] [place] [address] [place] [address]
--- OUTSIDE RECORDS SUMMARY | 2023-09-12 16:14 | External Medical Summary ---
Author Name Unknown Address Unknown Organization [id number] [address] [place] [address] Laboratory Report Ordering Provider Test Date Status DANIEL JACK 09/12/2023 09:58:01 Final Observation Date Value Abnormality Reference (Units ) Status WBC, Total 09/12/2023 09:58:01 19.10 Above high normal 4 .00-10.80 (K/uL) Final RBC 09/12/2023 09:58:01 4.34 4.50-5.25 (M/uL) Final Hemoglobin 09/12/2023 09:58:01 13.5 Below low normal 14 .0-16.8 (g/dL) Final HCT 09/12/2023 09:58:01 40.5 40.0-48.4 (%) Final MCV 09/12/2023 09:58:01 93.3 82.0-99.5 (fL) Final MCH 09/12/2023 09:58:01 31.1 27.0-34.0 (pg) Final MCHC 09/12/2023 09:58:01 33.3 32.0-36.0 (g/dL) Final RDW 09/12/2023 09:58:01 14.4 11.5-15.5 (%) Final Platelets 09/12/2023 09:58:01 160 140-400 (K /uL) Final MPV 09/12/2023 09:58:01 10.0 6.6-11.1 ( fL) Final Performing Location [facility] [place] [address] [place] [address]
--- OUTSIDE RECORDS SUMMARY | 2023-09-12 16:15 | External Medical Summary | Summary of Care ---
Author Name Unknown Organization [facility] Address [address] [place] [address] Phone [phone] Care Team Providers Care Nutrition Manager Name Role Phone Sami Stephens DO Primary Care Provider [phone] Encounter Details Date Type Department Care Team (Late st Contact Info) Description 09/02/2023 Telephone Dermatology [facility] Jordana [place] [address] [facility] [place] [address] Nik Vieira MD [address] [facility] [place] [address] Allergies Active Allergy Reactions Criticality Noted Date Comments Aspartame 08/10/2023 Pembrolizumab 07/01/2023 Penicillins 03/22/2023 Patient states had a reaction many years ago - that it was the "horse serum kind." documented as of this encounter (statuses as of 09/02/2023) Medications Medication Sig Dispensed Refills Start Date End Date Status Aspirin 81 MG Oral Tablet Delayed Release Take 1 Tablet by mouth daily. PM 0 Active SM Vitamin D3 100 MCG (4000 UT) Oral Capsule (Cholecalciferol) Take by mouth 5,000 Units daily . 0 Active CPAP every night at bedtime. 1 LPM 0 Active Dulaglutide 1.5 MG/0.5ML Subcutaneous Solution Pen-injector (Trulicity)Indicat ions:Prediabetes INJECT 1.5MG UNDER THE SKIN ONCE WEEKLY 6 mL 3 02/07/2023 02/07/2024 Active Additional Information Patient not taking.Reported on 08/30/2023 Finasteride 5 MG Oral Tablet (Proscar)Indicatio ns:BPH with obstruction/lower urinary tract symptoms Take 1 Tablet by mouth in the morning. 90 Tablet 3 03/02/2023 Active Sertraline HCl 50 MG Oral Tablet (Zoloft)Indication s:SCOTT (generalized anxiety disorder) TAKE ONE TABLET BY MOUTH EVERY MORNING 100 Tablet 3 03/05/2023 03/04/2024 Active Additional Information Patient taking differently: Takes at night, Reported on 03/11/2023 Vitamin B Complex Oral Tablet Take 1 Tablet by mouth daily. 0 Active hydroCHLOROthiazid e 25 MG Oral Tablet (Hydrodiuril)Indic ations:HTN, goal below 130/80 TAKE ONE TABLET BY MOUTH IN THE MORNING 90 Tablet 3 04/26/2023 Active amLODIPine Besylate 10 MG Oral Tablet (Norvasc)Indicatio ns:HTN, goal below 130/80 TAKE ONE TABLET BY MOUTH IN THE MORNING 90 Tablet 3 04/26/2023 Active Additional Information Patient taking differently: Daily(Non-Specified), PM, Reported on 07/01/2023 Losartan Potassium 100 MG Oral Tablet (Cozaar)Indication s:HTN, goal below 130/80 TAKE ONE TABLET BY MOUTH IN THE MORNING 90 Tablet 3 04/26/2023 Active Metoprolol Tartrate 25 MG Oral Tablet (Lopressor) TAKE ONE TABLET BY MOUTH IN THE MORNING AND ONE TABLET BEFORE BEDTIME 180 Tablet 3 04/25/2023 Active Lidocaine-Prilocai ne 2.5-2.5 % External Cream (Emla)Indications: 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 90 Capsule 1 06/22/2023 Active Additional Information Patient not taking.Reported on 08/31/2023 Senna 8.6 MG Oral Capsule Take by mouth. 2 tablets twice daily 0 Active Polyethylene Glycol 3350 17 GM Oral Packet (MiraLax)Indicatio ns:Drug-induced constipation Take 1 Packet by mouth in the morning. 0 07/01/2023 Active Saline Nasal [place] 0.65 % Nasal Solution ([place])Indications :Nasal drainage Administer 1 [place] into nostril every 6 hours as needed for Congestion. 0 07/19/2023 Active Atorvastatin Calcium 20 MG Oral Tablet (Lipitor)Indicatio ns:Dyslipidemia, goal LDL below 130 TAKE ONE TABLET BY MOUTH EVERYDAY 100 Tablet 1 08/18/2023 08/17/2024 Active Sulfamethoxazole-T rimethoprim 800-160 MG Oral Tablet (Bactrim DS) Take 1 Tablet by mouth in the morning and 1 Tablet before bedtime. Use as directed.. 10 Tablet 0 08/31/2023 Active Mirabegron ER 50 MG Oral Tablet Extended Release 24 Hour (Myrbetriq) Take 1 Tablet by mouth in the morning. 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 04/28/2023 Encounter for antineoplastic immunotherapy 04/28 Melanoma of face 03/14/2023 Essential tremor 07/13/2022 Bradycardia, sinus 06/09/2022 1st degree AV block 06/09/2022 Sinus pause 06/09/2022 Moderate to severe aortic stenosis 04/28/2022 SCOTT (generalized anxiety disorder) 04/12/2022 Prediabetes 01/25/2022 Overview: Per Prediabetes protocol SANDRINE on CPAP 01/04/2022 Morbid obesity due to excess calories 04/07/2021 Gouty arthropathy 04/07/2021 Dyslipidemia, goal LDL below 70 04/07/2021 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 HTN, goal below 150/90 04/07/2021 Vitamin D deficiency 04/07/2021 documented as of this encounter (statuses as of 09/02/2023) Resolved Problems Problem Noted Date Diagnosed Date Resolved Date Body mass index (BMI) of 45. 0 to 49.9 in adult 01/25/2022 07/28/2023 Overview: Per Obesity protocol documented as of this encounter (statuses as of 09/02/2023) Immunizations Name Administration Dates Next Due COVID-19 mRNA, LNP-s, No Pre serve, 2-Dose Series (Moderna) 09/23/2020,08/29/2020 COVID-19, MRNA-LNP, 23-24, P F, 30 MCG/0.3 mL, 12 YRS AND ABOVE, IM [facility] 08/25/2023 COVID-19, mRNA, LNP-s, PF, B ooster, 100mcg/0.5mg (Moderna) 02/02/2022,06/08/2021 Covid-19, Mrna, Lnp-s, Pf, B ivalent, 50 Mcg, IM, 12 yrs and above (Moderna) 05/18/2022 Pneumococcal Conjugate Vacci ne, 20-valent ([id number]) 04/12/2022 Seasonal Influenza, Quadriva lent Hd (Fluzone Hd) 04/19/2023,04/28/2022,07/01/2021 TDAP (age 10 and older)(Boostrix) 04/12/2022 Zoster Vaccine Recombinant (Shingrix) 08/30/2018 ,05/11/2018 documented as of this encounter Social History Tobacco Use Types Packs/Day Years Used Date Smoking Tobacco: Never Passive Smoke Exposure: Never Smokeless Tobacco: Never Alcohol Use Standard Drinks/Week Comments Yes 0 (1 standard drink = 0.6 oz pur e alcohol) occasional AUDIT-C Answer Date Recorded Q1: How often do you have a drink containing alc ohol? Monthly or less 04/07/2021 Q2: How many drinks containi ng alcohol do you have on a typical day when you are drinking? 1 or 2 04/07/2021 Q3: How often do you have si x or more drinks on one occasion? Never 04/07/2021 PHQ-2 Answer Date Recorded PHQ Adult Total Score 0 08/10/2023 Hunger Vital Sign Answer Date Recorded Within the past 12 months, y ou worried that your food would run out before you got the money to buy more. Never true 08/10/20 23 Within the past 12 months, t he food you bought just didn't last and you didn't have money to get more. Never true 08/10/2023 Sex and Gender Information Value Date Recorded Sex Assigned at Male 04/12/2022 3:29 PM EDT Gender Identity Male 04/12/2022 3:29 PM EDT Sexual Orientation Straight 04/12/2022 3: 29 PM EDT Job Start Date Occupation Industry Not on file Not on file Not on file documented as of this encounter Miscellaneous Notes * Telephone Encounter - Marlee Camarillo LPN - 09/02/2023 2:28 PM EST Patient aware of results and need to return for curettage. * Telephone Encounter - Marlee Camarillo LPN - 09/02/2023 11:51 AM EST ----- Message from Nik Vieira MD sent at 09/02/2023 11:26 AM EST ----- Please call patient to discuss biopsy results. I called patient, no answer, LMOM. Low risk basal cell skin cancer, will require curettage to treat. Marleny could you please assist in scheduling a return for curettage? A. 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) Background stasis dermatitis documented in this encounter Plan of Treatment Upcoming Encounters Date Type Department Care Team (Late st Contact Info) Description 09/22/2023 12:40 PM EST Laboratory Laboratory [facility] Eren Russell [address] [place] [phone] Pia Silve[address] [place] [address] 09/22/2023 1:15 PM EST Office Visit Hematology/Oncology [facility] [address] [place] [address] Rasheed Maldonado MD [address] [facility] [place] [address] 10/14/2023 11:45 AM EST Immunization/Injecti on Hematology/Oncology Treatment, [place] [address] [place] [address] Nurse, Med 4 [address] [place] [address] 10/18/2023 10:00 AM EST Nurse Only Ancillary [address] [facility] [address] [place] [address] College, Nurse Annual Wellness Visit [address] [address] 11/18/2023 10:45 AM EDT Office Visit Hematology/Oncology [facility] [address] [facility] [place] [address] Rasheed Maldonado MD [address] [place] [address] 11/29/2023 3:00 PM EDT Office Visit Family Practice 65 [facility] [address] [place] [address] Sami Stephens, DO [address] [place] [address] 12/06/2023 2:15 PM EDT Office Visit Urology, [facility] [address] [facility] [place] [address] Marbin Ivan MD [address] [address] [place] [address] 12/12/2023 9:00 AM EDT Office Visit Ophthalmology, [facility] 132 [facility] [place] [address] Ganesh Perez, DO [address] [place] [address] 12/29/2023 10:00 AM EDT Office [facility] [address] [facility] [place] [address] Nik Vieira MD [address] [facility] [place] [address] 03/12/2024 1:10 PM EDT Office Visit Dermatology [facility] [place] [address] [place] [place] [address] Natasha Nova PA-C [address] [place] [address] 03/13/2024 1:30 PM EDT Office Visit Cardiology, [facility] 132 [facility] [place] [address] Angela Peter CRNP [address] [place] [phone] 05/17/2024 10:00 AM EDT Office Visit Sleep Disorders [facility] 132 [facility] [place] [phone] Kathrine Haile CRNP 132 [facility] [place] [address] Health Maintenance Due Date Last Done Comments HbA1c 05/27/2024 05/27/2023, 01/14, 10/18/2022, Additional history exists Depression Screening 08/10/2024 08/10/2023 GFR 08/30/2024 08/30/2023, 0 10/2023, 08/10/2023, Additional history exists Albumin/Creatinine Ratio 01/08/2025 01/08/2022, 03/16 DTaP,Tdap,and Td Vaccines (2 - Td or Tdap) 04/12/2032 04/12/2022 Colonoscopy Discontinued 09/09/2016 Colorectal Cancer Screening Discontinued Zoster Vaccines Completed 08/30/2018, 05/11/2018 Pneumococcal Vaccine: 65+ Years Completed 04/12/2022 Influenza Vaccine (FLU shot) Completed 04/19/2023, 04/28/2022, 07/01/2021 COVID-19 Vaccine Completed 08/25/2023, 11/2021, 02/02/2022, Additional history exists Cologuard Discontinued Fecal Occult Blood Test Discontinued GARDASIL-HPV IMMUNIZATION SERIES Aged Out No longer eligible based on patient's age to complete this topic Hepatitis B Aged Out No longer eligi ble based on patient's age to complete this topic MENINGOCOCCAL (MENACTRA/MENVEO) Aged Out No longer eligible based on patient's age to complete this topic Sigmoidoscopy Discontinued documented as of this encounter Medical Devices Implanted Type Area Membership Secretary Device Identifier Shelf Expiration Date Model / Serial / Lot Port Implant W/8f Poly Cath - [id number] Implanted:Qty: 1 on 05/12/2023 at [facility] : PERIPHERAL VASCULAR [id number] 07/14/2024 [id number] / / [id number] documented as of this encounter Advance Directives Latest Code Status on File Code Status Date Activated Date Inactivated Comments Full Code 04/11/2023 5:47 AM 04/11/2023 3:30 PM This order reflects the patients wishes and were consensually agreed upon. Question Answer Comments Discussion of Advance Directives occurred with: Not Discussed due to patient's condition Code Status History Code Status Date Activated Date Inactivated Comments Full Code 07/21/2022 12:58 PM 07/21/2022 6:33 PM This order reflects the patients wishes and were consensually agreed upon. Question Answer Comments Discussion of Advance Directives occurred with: Patient/Family Full Code 07/21/2022 11:24 AM 07/21/2022 12:58 PM Thi s order reflects the patients wishes and were consensually agreed upon. Question Answer Comments Discussion of Advance Directives occurred with: Patient/Family Full Code 05/26/2022 7:00 AM 05/26/2022 2:51 PM Thi s order reflects the patients wishes and were consensually agreed upon. Question Answer Comments Discussion of Advance Directives occurred with: Patient Care Teams Nutrition Manager Relationship Specialty Start Date End Date Sami Stephens DO [address] [place] [address] PCP - General Internal Medicine 01/08/22 documented as of this encounter
--- OUTSIDE RECORDS SUMMARY | 2023-09-12 16:15 | External Medical Summary | Summary of Care ---
Author Name Unknown Organization [facility] Address [address] [place] [address] Phone [phone] Care Team Providers Care Repair Miller Name Role Phone Sami Stephens DO Primary Care Provider [phone] Reason for Visit * Reason Comments Procedure Port Flush Encounter Details Date Type Department Care Team (Late st Contact Info) Description 09/02/2023 12:00 PM EST Immunization/I njection Hematology/Oncology Treatment, [place] [address] [place] [address] Nurse, Med 200 [place] [address] History of melanoma*; Encounter for central line care Allergies Active Allergy Reactions Criticality Noted Date [...] the morning. 0 07/01/2023 Active Saline Nasal [place] 0.65 % Nasal Solution ([place])Indications :Nasal drainage Administer 1 [place] into nostril every 6 hours as needed [...] MCG/0.3 mL, 12 YRS AND ABOVE, IM (Greysox-Comirnaty) 08/25/2023 COVID-19, mRNA, LNP-s, PF, B ooster, 100mcg/0.5mg (Moderna) 02/02/2022,06/08/2021 Covid-19, Mrna, Lnp-s, Pf, B ivalent, 50 Mcg, IM, 12 yrs and above (Moderna) 05/18/2022 Pneumococcal Conjugate Vacci ne, 20-valent ([id number]) 04/12/2022 Seasonal Influenza, Quadriva lent Hd (Fluzone [...] on file documented as of this encounter Nursing Notes * Andi Morillo, RN - 09/02/2023 12:24 PM EST Chair 8. VAD (Venous Access Device) accessed with #20G 3/4" without difficulty. VAD flushed with 10 ml NSS and Heparin 5 ml (100 units/ml). Banks needle removed intact. Pt tolerated well. Ambulated from treatment center in stable condition. documented in this encounter Plan of Treatment Upcoming Encounters Date Type Department Care Team (Late st Contact Info) Description 09/22/2023 12:40 PM EST Laboratory Laboratory [facility] [place] [address] [id number] [facility] [place] [address] [address] 09/22/2023 1:15 PM EST Office Visit Hematology/Oncology [facility] Jordana [place] [address] [address] Rasheed Maldonado MD [address] [place] [address] 10/14/2023 11:45 AM EST Immunization/Injecti on Hematology/Oncology Treatment, [address] [place] [address] Nurse, Med 4 [address] [place] [address] 10/18/2023 10:00 AM EST Nurse Only Ancillary 65 [facility] 293 [place] [address] College, Nurse Annual Wellness Visit [address] [place] [address] 11/18/2023 10:45 AM EDT Office Visit Hematology/Oncology [facility] 200 [facility] [place] [address] Rasheed Maldonado MD 200 [facility] [place] [address] 11/29/2023 3:00 PM EDT Office Visit Family Practice 65 [facility] 293 [place] [address] Sami Stephens, DO 293 [place] [address] 12/06/2023 2:15 PM EDT Office Visit Urology, [facility] 132 [place] [address] Marbin Ivan MD [address] [address] 12/12/2023 9:00 AM EDT Office Visit Ophthalmology, [facility] 132 [place] [address] Ganesh Perez, DO 16 [place] [address] 12/29/2023 10:00 AM EDT Office Visit Dermatology [facility] 200 [facility] [place] [address] Nik Vieira MD 200 [facility] [place], [place] [address] 03/12/2024 1:10 PM EDT Office Visit Dermatology [facility] [place] [address] [place] [address] Natasha Nova PA-C 4121 [facility] [place] [address] 03/13/2024 1:30 PM EDT Office Visit Cardiology, [facility] 132 [facility] [place] [address] Angela Peter CRNP 400 [facility] [place] [address] 05/17/2024 10:00 AM EDT Office Visit Sleep Disorders Ctr [facility] 132 [facility] [place] [phone] Kathrine Haile CRNP 132 [facility] [place] [address] Health Maintenance Due Date Last Done Comments [...] this encounter Medical Devices Implanted Type Area Middle School Band Teacher Device Identifier Shelf Expiration Date Model / Serial / Lot Port Implant W/8f Poly Cath - [id number] Implanted:Qty: 1 on 05/12/2023 at [facility] CR [facility] : PERIPHERAL VASCULAR [id number] 07/14/2024 [id number] / / [id number] documented as of this encounter Visit Diagnoses Diagnosis History of melanoma- Primary Personal history of malignant melanoma of skin Encounter for central line care Fitting and adjustment of vascular catheter documented in this encounter Administered Medications Active Administered Medications - up to 3 most recent administrations Medication Order MAR Action Action Date Dose Rate Site hEParin 100 UNIT/ML Lock Flush inj 500 Units 500 Units (5 mL), IV Lock, PRN Other, IV Flush, Starting on Tue09/02/23 at 1208, Until 09/03/23 at 1207, For 24 hours, Do not flush if lock, PICC, or central line not in place; IV infusing or unable to flush. Given 09/02/2023 12:10 PM EST 500 Units sodium chloride 0.9 % flush central line 10 mL 10 mL, IV Push, PRN Other, IV Flush, Starting on Tue09/02/23 at 1208, Until 09/03/23 at 1207, For 24 hours, Do not flush if lock, PICC, or central line not in place; IV infusing or unable to flush. Given 09/02/2023 12:11 PM EST 10 mL documented in this encounter Advance Directives Latest Code Status [...] Advance Directives occurred with: Patient Care Teams Repair Miller Relationship Specialty Start Date End Date Sami Stephens DO 293 [facility] [place] [address] PCP - General Internal Medicine 01/08/22 documented as of this encounter
--- OUTSIDE RECORDS SUMMARY | 2023-09-12 16:15 | External Medical Summary | Summary of Care ---
Author Name Unknown Organization [facility] Address [address] [place] [address] Phone [phone] Care Team Providers Care Supervisor Type Photography Name Role Phone Guero Stephens DO Primary Care Provider [phone] Reason for Visit * Reason Onset Date Comments Pre Cert/Prior Auth 09/01/2023 Encounter Details Date Type Department Care Team (Late st Contact Info) Description 09/01/2023 Refill Family Practice [address], [place] [address] [place] [address] Guero Stephens DO 293 [place] [address] Hypokalemia Allergies Active Allergy Reactions Criticality Noted Date Comments Aspartame 08/10/2023 Pembrolizumab 07/01/2023 Penicillins 03/22/2023 Patient states had a reaction many years ago - that it was the "horse serum kind." documented as of this encounter (statuses as of 09/01/2023) Medications Medication Sig Dispensed Refills Start Date End Date Status Aspirin 81 MG Oral Tablet Delayed Release Take 1 Tablet by mouth daily. PM 0 Active SM Vitamin D3 100 MCG (4000 UT) Oral Capsule (Cholecalciferol) Take by mouth 5,000 Units daily . 0 Active CPAP every night at bedtime. 1 LPM 0 Active Dulaglutide 1.5 MG/0.5ML Subcutaneous Solution Pen-injector (Trulicity)Indica tions:Prediabetes INJECT 1.5MG UNDER THE SKIN ONCE WEEKLY 6 mL 3 02/07/2023 06/25/202 4 Active Additional Information Patient not taking.Reported on 08/30/2023 Finasteride 5 MG Oral Tablet (Proscar)Indicati ons:BPH with obstruction/lower urinary tract symptoms Take 1 Tablet by mouth in the morning. 90 Tablet 3 03/02/2023 Active Sertraline HCl 50 MG Oral Tablet (Zoloft)Indicatio ns:SCOTT (generalized anxiety disorder) TAKE ONE TABLET BY MOUTH EVERY MORNING 100 Tablet 3 03/05/2023 4 Active Additional Information Patient taking differently: Takes at night, Reported on 03/11/2023 Vitamin B Complex Oral Tablet Take 1 Tablet by mouth daily. 0 Active hydroCHLOROthiazi de 25 MG Oral Tablet (Hydrodiuril)Gina cations:HTN, goal below 130/80 TAKE ONE TABLET BY MOUTH IN THE MORNING 90 Tablet 3 04/26/2023 Active amLODIPine Besylate 10 MG Oral Tablet (Norvasc)Indicati ons:HTN, goal below 130/80 TAKE ONE TABLET BY MOUTH IN THE MORNING 90 Tablet 3 04/26/2023 Active Additional Information Patient taking differently: Daily(Non-Specified), PM, Reported on 07/01/2023 Losartan Potassium 100 MG Oral Tablet (Cozaar)Indicatio ns:HTN, goal below 130/80 TAKE ONE TABLET BY MOUTH IN THE MORNING 90 Tablet 3 04/26/2023 Active Metoprolol Tartrate 25 MG Oral Tablet (Lopressor) TAKE ONE TABLET BY MOUTH IN THE MORNING AND ONE TABLET BEFORE BEDTIME 180 Tablet 3 04/25/2023 Active Lidocaine-Priloca ine 2.5-2.5 % External Cream (Emla)Indications :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 90 Capsule 1 06/22/2023 Active Additional Information Patient not taking.Reported on 08/31/2023 Senna 8.6 MG Oral Capsule Take by mouth. 2 tablets twice daily 0 Active Polyethylene Glycol 3350 17 GM Oral Packet (MiraLax)Indicati ons:Drug-induced constipation Take 1 Packet by mouth in the morning. 0 07/01/2023 Active Saline Nasal [place] 0.65 % Nasal Solution (Caroline)Indication s:Nasal drainage Administer 1 [place] into nostril every 6 hours as needed for Congestion. 0 07/19/2023 Active Atorvastatin Calcium 20 MG Oral Tablet (Lipitor)Indicati ons:Dyslipidemia, goal LDL below 130 TAKE ONE TABLET BY MOUTH EVERYDAY 100 Tablet 1 08/18/2023 5 Active Sulfamethoxazole- Trimethoprim 800-160 MG Oral Tablet (Bactrim DS) Take 1 Tablet by mouth in the morning and 1 Tablet before bedtime. Use as directed.. 10 Tablet 0 08/31/2023 Active Mirabegron ER 50 MG Oral Tablet Extended Release 24 Hour (Myrbetriq) Take 1 Tablet by mouth in the morning. 30 Tablet 6 08/31/2023 Active Potassium Chloride ER 10 MEQ Oral Capsule Extended ReleaseIndication s:Hypokalemia Take 2 capsules by mouth in the morning and 1 capsule in the evening 300 Capsule 3 09/01/2023 Active Potassium Chloride ER 10 MEQ Oral Capsule Extended ReleaseIndication s:Hypokalemia Two capsules in the am and one in the pm. 0 08/30/2023 4 Discontinue d(Refill) documented as of this encounter (statuses as of 09/01/2023) Active Problems Problem Noted Date Diagnosed Date [...] as of this encounter (statuses as of 09/01/2023) Resolved Problems Problem Noted Date Diagnosed Date Resolved Date Body mass index (BMI) of 45. 0 to 49.9 in adult 01/25/2022 07/28/2023 Overview: Per Obesity protocol documented as of this encounter (statuses as of 09/01/2023) Immunizations Name Administration Dates Next Due COVID-19 mRNA, LNP-s, No Pre serve, 2-Dose Series (Moderna) 09/23/2020,08/29/2020 COVID-19, MRNA-LNP, 23-24, P F, 30 MCG/0.3 mL, 12 YRS AND ABOVE, IM (Impinj-Comirnaty) 08/25/2023 COVID-19, mRNA, LNP-s, PF, B ooster, 100mcg/0.5mg (Moderna) 02/02/2022,06/08/2021 Covid-19, Mrna, Lnp-s, Pf, B ivalent, 50 Mcg, IM, 12 yrs and above (Moderna) 05/18/2022 Pneumococcal Conjugate Vacci ne, 20-valent ([id number]) 04/12/2022 Seasonal Influenza, Quadriva lent Hd (Fluzone [...] encounter Miscellaneous Notes * Telephone Encounter - Tracy Hsieh RPh - 09/01/2023 11:20 AM EST Script overnighted to patient to arrive tomorrow. Tracy Gupta, Pharm D, BCACP Clinical Pharmacist [address] [facility] - [facility] 09/01/2023, 11:20 AM Ph. [phone] * Telephone Encounter - Guero Stephens DO - 09/01/2023 9:45 AM ESTSigned Prescriptions: Disp Refills Potassium Chloride ER 10 MEQ Oral Capsule *300 Ca*3 Sig: Take 2 capsules by mouth in the morning and 1 capsule in the evening Authorizing Provider: GUERO STEPHENS * Telephone Encounter - Guero Stephens DO - 09/01/2023 9:44 AM EST Potassium Chloride sent to Pharmacy. BMP one week after medication dose change. * Telephone Encounter - Tracy Hsieh [facility] - 09/01/2023 8:59 AM EST Per [facility] - script will go through. New potassium script pended to PCP to sign for mail order. Will overnight to patient for tomorrow. Jo-Ann Hogan, DOMENICACP Clinical Pharmacist [address] [facility] - [facility] 09/01/2023, 8:59 AM Ph. [phone] * Telephone Encounter - Tracy Hsieh [facility] - 09/01/2023 8:13 AM EST Filed PA with [facility] ID [id number]. Error occurred - contacted [facility]. Jo-Ann Hogan, DOMENICACP Clinical Pharmacist [address] [facility] - [facility] 09/01/2023, 8:16 AM Ph. [phone] * Telephone Encounter - Jenae Garrett LPN - 09/01/2023 7:55 AM EST Potassium 10 meq needs prior auth, unable to swallow 20 meq. documented in this encounter Plan of Treatment Upcoming Encounters Date Type Department Care Team (Late st Contact Info) Description 09/02/2023 12:00 PM EST Immunization/Injecti on Hematology/Oncology Treatment, [place] [address] [place] [address] Nurse, Med 4 200 [facility] [place], [place] [address] 09/22/2023 12:40 PM EST Laboratory Laboratory [facility] [address] [place], [place] [phone] [place], Lab [facility] 200 [facility] [place], [place] [address] 09/22/2023 1:15 PM EST Office Visit Hematology/Oncology [facility] [address] [place], [place] [address] Rasheed Maldonado MD 200 [facility], [place] [address] 10/18/2023 10:00 AM EST Nurse Only Ancillary 65 [facility] 293 [place] [address] College, Nurse Annual Wellness Visit [address] [place] [address], [place] [address] 11/18/2023 10:45 AM EDT Office Visit Hematology/Oncology [facility] 200 [facility] [place], [place] [address] Rasheed Maldonado MD 200 [place] [address] 11/29/2023 3:00 PM EDT Office Visit Family Practice 65 [facility] [address] [place] [address] Guero Stephens, 293 [place] [address] 12/06/2023 2:15 PM EDT Office Visit Urology, [facility] 132 [place] [address] Marbin Ivan MD 27 [facility] [address] [place] [address] 12/12/2023 9:00 AM EDT Office Visit Ophthalmology, [facility] 132 [facility] [place] [address] Ganesh Perez, DO 16 [place] [address] 12/29/2023 10:00 AM EDT Office [facility] 200 [facility] [place] [address] Nik Vieira MD 200 [facility] [place] [address] 03/12/2024 1:10 PM EDT Office Visit Dermatology [facility], [place] [address] [place] [address] Natasha Nova PA-C [address] [place] [address] 03/13/2024 1:30 PM EDT Office Visit Cardiology, [facility] [address] [facility] [place] [address] Angela Peter CRNP 400 [place] [address] 05/17/2024 10:00 AM EDT Office Visit Sleep Disorders Ctr [facility] 132 [facility] [place] [phone] Kathrine Haile CRNP 132 [facility] [place] [address] Scheduled Orders Name Type Priority Associated Diagnoses Orde r Schedule BASIC METABOLIC PANEL Lab Routine Hypokalemia Expected: 09/01/2023 (Approximate), Expires: 08/31/2024 Health Maintenance Due Date Last Done Comments HbA1c 05/27/2024 05/27/2023, 01/14, 10/18/2022, Additional history exists Depression Screening 08/10/2024 08/10/2023 GFR 08/30/2024 08/30/2023, 10/2023, 08/10/2023, Additional history exists Albumin/Creatinine Ratio [...] this encounter Medical Devices Implanted Type Area Criminal Lawyer Device Identifier Shelf Expiration Date Model / Serial / Lot Port Implant W/8f Poly Cath - [id number] Implanted:Qty: 1 on 05/12/2023 at [facility] CR BARD : PERIPHERAL VASCULAR [id number] 07/14/2024 [id number] / / [id number] documented as of this encounter Visit Diagnoses Diagnosis Hypokalemia Hypopotassemia documented in this encounter Advance Directives Latest [...] Advance Directives occurred with: Patient Care Teams Supervisor Type Photography Relationship Specialty Start Date End Date Guero Stephens DO 293 [place] [address] PCP - General Internal Medicine 01/08/22 documented as of this encounter
--- OUTSIDE RECORDS SUMMARY | 2023-09-12 16:15 | External Medical Summary | Summary of Care ---
Author Name Unknown Organization [facility] Address [address] [place] [address] Phone [phone] Care Team Providers Care Finance Manager Name Role Phone Sami Stephens DO Primary Care Provider [phone] Reason for Visit * Reason Comments Procedure Port Flush Encounter Details Date Type Department Care Team (Late st Contact Info) Description 09/02/2023 12:00 PM EST Immunization/I njection Hematology/Oncology Treatment, [place] [address] [place] [address] Nurse, Med 200 [place] [address] History of melanoma*; Encounter for central line [...] the morning. 0 07/01/2023 Active Saline Nasal [place] 0.65 % Nasal Solution ([place])Indications :Nasal drainage Administer 1 [place] into nostril every 6 hours as needed [...] MCG/0.3 mL, 12 YRS AND ABOVE, IM (Comenta.TV (Wayin)-Comirnaty) 08/25/2023 COVID-19, mRNA, LNP-s, PF, B ooster, 100mcg/0.5mg (Moderna) 02/02/2022,06/08/2021 Covid-19, Mrna, Lnp-s, Pf, B ivalent, 50 Mcg, IM, 12 yrs and above (Moderna) 05/18/2022 Pneumococcal Conjugate Vacci ne, 20-valent ([id number]) 04/12/2022 Seasonal Influenza, Quadriva lent Hd (Fluzone [...] Description 09/22/2023 12:40 PM EST Laboratory Laboratory [facility] [place] [address] [phone] [facility] [place] [address] [address] 09/22/2023 1:15 PM EST Office Visit Hematology/Oncology [facility] [place] [address] [place] [address] [address] Rasheed Maldonado MD [address] [address] 10/14/2023 11:45 AM EST Immunization/Injecti on Hematology/Oncology Treatment, [address] [place] [address] Nurse, Med 4 [address] [place] [address] 10/18/2023 10:00 AM EST Nurse Only Ancillary 65 [facility] 293 [place] [address] College, Nurse Annual Wellness Visit [address] [place] [address] 11/18/2023 10:45 AM EDT Office Visit Hematology/Oncology [facility] 200 [facility] [place] [address] Rasheed Maldonado MD 200 [facility] [place] [address] 11/29/2023 3:00 PM EDT Office Visit Family Practice 65 [facility] 293 [place] [address] Sami Stephens, DO 293 [place] [address] 12/06/2023 2:15 PM EDT Office Visit Urology, [facility] 132 [place] [address] Marbin Ivan MD [address] [address] 12/12/2023 9:00 AM EDT Office Visit Ophthalmology, [facility] 132 [place] [address] Ganesh Perez, DO 16 [place] [address] 12/29/2023 10:00 AM EDT Office Visit Dermatology [facility] 200 [facility] [place] [address] Nik Vieira MD 200 [facility] [place], [place] [address] 03/12/2024 1:10 PM EDT Office Visit Dermatology [facility] [place] [address] [place] [address] Natasha Nova PA-C 8665 [facility] [place] [address] 03/13/2024 1:30 PM EDT Office Visit Cardiology, [facility] 132 [facility] [place] [address] Angela Peter CRNP 400 [facility] [place] [address] 05/17/2024 10:00 AM EDT Office Visit Sleep Disorders Ctr [facility] 132 [facility] [place] [phone] Kathrine Haile CRNP 132 [facility] [place] [address] Health Maintenance Due Date Last Done Comments [...] this encounter Medical Devices Implanted Type Area Motel Operator Device Identifier Shelf Expiration Date Model / Serial / Lot Port Implant W/8f Poly Cath - [id number] Implanted:Qty: 1 on 05/12/2023 at [facility] CR BARD : PERIPHERAL VASCULAR [id number] 07/14/2024 [id number] / / [id number] documented as of this encounter Visit Diagnoses [...] Advance Directives occurred with: Patient Care Teams Finance Manager Relationship Specialty Start Date End Date Sami Stephens DO 293 [place] [address] PCP - General Internal Medicine 01/08/22 documented as of this encounter
--- OUTSIDE RECORDS SUMMARY | 2023-09-12 16:15 | External Medical Summary | Summary of Care ---
Author Name Unknown Organization [facility] Address [address] [place] [address] Phone [phone] Care Team Providers Care Chief Operations Officer Name Role Phone Sami Stephens DO Primary Care Provider [phone] Reason for Visit * Reason Comments Outpatient Testing Encounter Details Date Type Department Care Team (Late st Contact Info) Description 09/06/2023 1:00 PM EST Laboratory Laboratory, [facility] [place] [address] [facility] [address] Hypokalemia Allergies Active Allergy Reactions Criticality Noted Date Comments Aspartame 08/10/2023 Pembrolizumab 07/01/2023 Penicillins 03/22/2023 Patient states had a reaction many years ago - that it was the "horse serum kind." documented as of this encounter (statuses as of 09/06/2023) Medications Medication Sig Dispensed Refills Start Date [...] the morning. 0 07/01/2023 Active Saline Nasal [place] 0.65 % Nasal Solution ([place])Indications :Nasal drainage Administer 1 [place] into nostril every 6 hours as needed [...] as directed.. 10 Tablet 0 08/31/2023 Active Potassium Chloride ER 10 MEQ Oral Capsule Extended ReleaseIndications :Hypokalemia Take 2 capsules by mouth in the morning and 1 capsule in the evening 300 Capsule 3 09/01/2023 Active Ciprofloxacin HCl 500 MG Oral Tablet (Cipro) Take 1 Tablet by mouth in the morning and 1 Tablet before bedtime. 14 Tablet 0 09/02/2023 Active Mirabegron ER 50 MG Oral Tablet Extended Release 24 Hour (Myrbetriq) Take 1 Tablet by mouth in the morning. 90 Tablet 3 09/05/2023 Active documented as of this encounter (statuses as of 09/06/2023) Active Problems Problem Noted Date Diagnosed Date [...] as of this encounter (statuses as of 09/06/2023) Resolved Problems Problem Noted Date Diagnosed Date Resolved Date Body mass index (BMI) of 45. 0 to 49.9 in adult 01/25/2022 07/28/2023 Overview: Per Obesity protocol documented as of this encounter (statuses as of 09/06/2023) Immunizations Name Administration Dates Next Due COVID-19 mRNA, LNP-s, No Pre serve, 2-Dose Series (Moderna) 09/23/2020,08/29/2020 COVID-19, MRNA-LNP, 23-24, P F, 30 MCG/0.3 mL, 12 YRS AND ABOVE, IM (PFIZER-Comirnat) 08/25/2023 COVID-19, mRNA, LNP-s, PF, B ooster, 100mcg/0.5mg (Moderna) 02/02/2022,06/08/2021 Covid-19, Mrna, Lnp-s, Pf, B ivalent, 50 Mcg, IM, 12 yrs and above (Moderna) 05/18/2022 Pneumococcal Conjugate Vacci ne, 20-valent ([id number]) 04/12/2022 Seasonal Influenza, Quadriva lent Hd (Fluzone [...] on file documented as of this encounter Plan of Treatment Upcoming Encounters Date Type Department Care Team (Late st Contact Info) Description 09/20/2023 11:15 AM EST Office Visit Dermatology [facility] [place] [address] [place] [address] Nik Vieira MD [address] [place] [address] 09/22/2023 12:40 PM EST Laboratory Laboratory [facility] [place] [address] [place] [address] [phone] [facility] Lab [facility] [address] [facility] [place] [address] 09/22/2023 1:15 PM EST Office Visit Hematology/Oncology [facility] [place] [address] [place] [address] Rasheed Maldonado MD [address] [address] 10/14/2023 11:45 AM EST Immunization/Injecti on Hematology/Oncology Treatment, [place] [address] [facility] [place] [address] Nurse, Med 4 [address] [place], [place] [address] 10/18/2023 10:00 AM EST Nurse Only Ancillary 65 [facility] 293 [place] [place] [address] College, Nurse Annual Wellness Visit [address] [place] [address] 11/18/2023 10:45 AM EDT Office Visit Hematology/Oncology [facility] [address] [facility] [place] [address] Rasheed Maldonado MD [address] [facility] [place] [address] 11/29/2023 3:00 PM EDT Office Visit Family Practice 65 [facility] 293 [place] [address] Sami Stephens, DO 293 [place] [address] 12/06/2023 2:15 PM EDT Office Visit Urology, [facility] 132 [place] [address] Marbin Ivan MD [address] [address] 12/12/2023 9:00 AM EDT Office Visit Ophthalmology, [facility] 132 [place] [address] Ganesh Perez, DO 16 [place] [address] 12/29/2023 10:00 AM EDT Office Visit Dermatology [facility] [address] [place], [place] [address] Nik Vieira MD [address] [place] [address] 03/12/2024 1:10 PM EDT Office Visit Dermatology [address], [place] [address] [place] [address] Natasha Nova PA-C 5087 [facility] [place] [address] 03/13/2024 1:30 PM EDT Office Visit Cardiology, [facility] 132 [facility] [place] [address] Angela Peter CRNP [address] [place] [address] 05/17/2024 10:00 AM EDT Office Visit Sleep Disorders Ctr [facility] 132 [facility] [place] [phone] Kathrine Haile CRNP 132 [facility] [place] [address] Pending Results Name Type Priority Associated Diagnoses Date /Time BASIC METABOLIC PANEL Lab Routine Hypokalemia 09/06/2023 12:53 PM EST Health Maintenance Due Date Last Done Comments [...] this encounter Medical Devices Implanted Type Area Cocoa Press Operator Device Identifier Shelf Expiration Date Model / Serial / Lot Port Implant W/8f Poly Cath - [id number] Implanted:Qty: 1 on 05/12/2023 at [facility]ARD : PERIPHERAL VASCULAR [id number] 07/14/2024 [id number] / / [id number] documented as of this encounter Visit Diagnoses [...] Advance Directives occurred with: Patient Care Teams Chief Operations Officer Relationship Specialty Start Date End Date Sami Stephens DO [address] [place] [address] PCP - General Internal Medicine 01/08/22 documented as of this encounter
--- OUTSIDE RECORDS SUMMARY | 2023-09-12 16:15 | External Medical Summary | Summary of Care ---
Author Name Unknown Organization [facility] Address [address] [place] [address] Phone [phone] Care Team Providers Care Apartment House Manager Name Role Phone Sami Stephens DO Primary Care Provider [phone] Encounter Details Date Type Department Care Team (Late st Contact Info) Description 09/02/2023 Telephone Dermatology [facility] [place] 200 [facility] [place] [address] Nik Vieira MD 200 [facility] [place] [address] Allergies Active Allergy Reactions Criticality Noted Date [...] the morning. 0 07/01/2023 Active Saline Nasal [place] 0.65 % Nasal Solution ([place])Indications :Nasal drainage Administer 1 [place] into nostril every 6 hours as needed [...] MCG/0.3 mL, 12 YRS AND ABOVE, IM ([employer]) 08/25/2023 COVID-19, mRNA, LNP-s, PF, B ooster, 100mcg/0.5mg (Moderna) 02/02/2022,06/08/2021 Covid-19, Mrna, Lnp-s, Pf, B ivalent, 50 Mcg, IM, 12 yrs and above (Moderna) 05/18/2022 Pneumococcal Conjugate Vacci ne, 20-valent ([id number]) 04/12/2022 Seasonal Influenza, Quadriva lent Hd (Fluzone [...] EST Laboratory [facility] [address] [phone] [place]ana Lab [facility] [address] [address] 09/22/2023 1:15 PM EST Office Visit Hematology/Oncology [facility] [address] [place] [address] Rasheed Maldonado MD [address] [address] 10/14/2023 11:45 AM EST Immunization/Injecti on Hematology/Oncology Treatment, [place] [address] [place] [address] Nurse, Med [address] [facility] [place] [address] 10/18/2023 10:00 AM EST Nurse Only Ancillary 65 [facility] 293 [place] [address] College, Nurse Annual Wellness Visit [address] [address] 11/18/2023 10:45 AM EDT Office Visit Hematology/Oncology [facility] 200 [facility] [place] [address] Rasheed Maldonado MD 200 [facility] [place] [address] 11/29/2023 3:00 PM EDT Office Visit Family Practice 65 [facility] 293 [place] [address] Sami Stephens, DO 293 [place] [address] 12/06/2023 2:15 PM EDT Office Visit [facility], [facility] 132 [place] [address] Marbin Ivan MD [address] [place] [address] [place] [address] 12/12/2023 9:00 AM EDT Office Visit Ophthalmology, [facility] 132 [facility] [place] [address] Ganesh Perez, DO [facility] [address] 12/29/2023 10:00 AM EDT Office Visit Dermatology [facility] 200 [facility] [place] [address] Nik Vieira MD [address] [place] [address] 03/12/2024 1:10 PM EDT Office Visit Dermatology [facility] [place] [address] [place] [address] Natasha Nova PA-C [address] [place] [address] 03/13/2024 1:30 PM EDT Office Visit Cardiology, [facility] [address] Angela Peter CRNP 400 [place] [phone] 05/17/2024 10:00 AM EDT Office Visit Sleep Disorders Ctr [facility] [address] Kathrine Haile CRNP 132 [facility] [address] Health Maintenance Due Date Last Done Comments [...] this encounter Medical Devices Implanted Type Area Security Profession[employer] Device Identifier Shelf Expiration Date Model / Serial / Lot Port Implant W/8f Poly Cath - [id number] Implanted:Qty: 1 on 05/12/2023 at [facility] BARD : PERIPHERAL VASCULAR [id number] 07/14/2024 [id number] / / [id number] documented as of this encounter Advance Directives [...] Advance Directives occurred with: Patient Care Teams Apartment House Manager Relationship Specialty Start Date End Date Sami Stephens DO 293 [facility] [place] [address] PCP - General Internal Medicine 5/27/22 documented as of this encounter
--- OUTSIDE RECORDS SUMMARY | 2023-09-12 16:15 | External Medical Summary | Summary of Care ---
Author Name Unknown Organization [facility] Address [address] [place] [address] Phone [phone] Care Team Providers Care Delivery Table Operator Name Role Phone Sami Stephens DO Primary Care Provider [phone] Reason for Visit * Reason Onset Date Comments Advice 09/02/2023 Encounter Details Date Type Department Care Team (Late st Contact Info) Description 09/02/2023 Telephone Urology, [facility] [address] [facility] [place] [address] Services, Scheduling [address] [place] [address] Advice Allergies Active Allergy Reactions Criticality Noted Date Comments Aspartame 08/10/2023 Pembrolizumab 07/01/2023 Penicillins 03/22/2023 Patient states had a reaction many years ago - that it was the "horse serum kind." documented as of this encounter (statuses as of 09/05/2023) Medications Medication Sig Dispensed Refills Start Date [...] SKIN ONCE WEEKLY 6 mL 3 02/07/2023 Active Additional Information Patient not taking.Reported on [...] the morning. 0 07/01/2023 Active Saline Nasal [place] 0.65 % Nasal Solution ([place])Indication s:Nasal drainage Administer 1 [place] into nostril every 6 hours as needed [...] the morning. 90 Tablet 3 09/05/2023 Active Mirabegron ER 50 MG Oral Tablet Extended Release 24 Hour (Myrbetriq) Take 1 Tablet by mouth in the morning. 30 Tablet 6 08/31/2023 4 Discontinue d(Refill) documented as of this encounter (statuses as of 09/05/2023) Active Problems Problem Noted Date Diagnosed Date [...] as of this encounter (statuses as of 09/05/2023) Resolved Problems Problem Noted Date Diagnosed Date Resolved Date Body mass index (BMI) of 45. 0 to 49.9 in adult 01/25/2022 07/28/2023 Overview: Per Obesity protocol documented as of this encounter (statuses as of 09/05/2023) Immunizations Name Administration Dates Next Due COVID-19 mRNA, LNP-s, No Pre serve, 2-Dose Series (Moderna) 09/23/2020,08/29/2020 COVID-19, MRNA-LNP, 23-24, P F, 30 MCG/0.3 mL, 12 YRS AND ABOVE, IM (PFIZER-Comirnaty) 08/25/2023 COVID-19, mRNA, LNP-s, PF, B ooster, 100mcg/0.5mg (Moderna) 02/02/2022,06/08/2021 Covid-19, Mrna, Lnp-s, Pf, B ivalent, 50 Mcg, IM, 12 yrs and above (Moderna) 05/18/2022 Pneumococcal Conjugate Vacci ne, 20-valent ([id number]) 04/12/2022 Seasonal Influenza, Quadriva lent Hd (Fluzone [...] encounter Miscellaneous Notes * Telephone Encounter - Marian Johnson LPN - 09/05/2023 8:11 AM EST Pt informed. Pt asking for a 90 day supply of Myrbetriq, pending. Please sign if agreeable * Telephone Encounter - Marbin Ivan MD - 09/02/2023 4:24 PM EST Patient's culture is resistant to Bactrim provided - Rx switched to Cipro. Thx, HM * Telephone Encounter - Lauren Peña OSA - 09/02/2023 1:48 PM EST Patient calling in stating that he was to receive a call after results of his urine test to see if he was still suppose to keep taking the antibiotic he was given, ok to leave just a yes or no on VM,please call to advise, thanks documented in this encounter Plan of Treatment Upcoming Encounters Date Type Department Care Team (Late st Contact Info) Description 09/20/2023 11:15 AM EST Office Visit Dermatology [facility] [address] [place], [place] [address] Nik Vieira MD [address] [place], [place] [address] 09/22/2023 12:40 PM EST Laboratory Laboratory [facility] [address] [place], [place] [phone] [place], Lab [facility] 200 [facility] [place], [place] [address] 09/22/2023 1:15 PM EST Office Visit Hematology/Oncology [facility] [address] [place], [place] [address] Rasheed Maldonado MD 200 [facility] [place], [place] [address] 10/14/2023 11:45 AM EST Immunization/Injecti on Hematology/Oncology Treatment, [place] [address] [place], [place] [address] Nurse, Med 4 200 [facility] [place], [place] [address] 10/18/2023 10:00 AM EST Nurse Only Ancillary 65 [facility] 293 [facility], [place] [address] College, Nurse Annual Wellness Visit [address], [place] [address] 11/18/2023 10:45 AM EDT Office Visit Hematology/Oncology [facility] [address] [place], [place] [address] Rasheed Maldonado MD 200 [facility] [place], [place] [address] 11/29/2023 3:00 PM EDT Office Visit Family Practice [address] [place] [address] Sami Stephens, DO 293 [place] [address] 12/06/2023 2:15 PM EDT Office Visit Urology, [facility] 132 [place] [address] Marbin Ivan MD 27 [facility] 270 [place] [address] 12/12/2023 9:00 AM EDT Office Visit Ophthalmology, [facility] 132 [place] [address] Ganesh Perez, DO 16 [place] [address] 12/29/2023 10:00 AM EDT Office Visit Dermatology [facility] [address] [place] [address] Nik Vieira MD 200 [place] [address] 03/12/2024 1:10 PM EDT Office Visit Dermatology [facility] [place] [address] [place] [address] Natasha Nova PA-C 3[address] [place] [address] 03/13/2024 1:30 PM EDT Office Visit Cardiology, [facility] 132 [place] [address] Angela Peter CRNP [address] [place] [address] [place] [address] 05/17/2024 10:00 AM EDT Office Visit [facility] Disorders Ctr [facility] [address] [place] [place] [phone] Kathrine Haile CRNP [address] [place] [address] Health Maintenance Due Date Last Done Comments [...] this encounter Medical Devices Implanted Type Area Program Planner Device Identifier Shelf Expiration Date Model / Serial / Lot Port Implant W/8f Poly Cath - [id number] Implanted:Qty: 1 on 05/12/2023 at [facility] BARD : PERIPHERAL VASCULAR [id number] 07/14/2024 [id number] / / [id number] documented as of this encounter Advance Directives [...] Advance Directives occurred with: Patient Care Teams Delivery Table Operator Relationship Specialty Start Date End Date Sami Stephens DO 293 [place] [address] PCP - General Internal Medicine 01/08/22 documented as of this encounter
--- OUTSIDE RECORDS SUMMARY | 2023-09-12 16:15 | External Medical Summary ---
Author Name Unknown Address Unknown Organization K01:[facility] [place] [address] [facility] [place] [address] Laboratory Report Ordering Provider Test Date Status EMIL ACOSTA 09/10/2023 15:58:52 Final Observation Date Value Abnormality Reference (Units ) Status Adenovirus DNA [Presence] in Nasopharynx by DMITRY with non-probe detection 09/10/2023 15:58:52 Negative Negative Final Human coronavirus 229E RNA [Presence] in Nasopharynx by DMITRY with non-probe detection 09/10/2023 15:58:52 Negative Negative Final Human coronavirus HKU1 RNA [Presence] in Nasopharynx by DMITRY with non-probe detection 09/10/2023 15:58:52 Negative Negative Final Human coronavirus NL63 RNA [Presence] in Nasopharynx by DMITRY with non-probe detection 09/10/2023 15:58:52 Negative Negative Final Human coronavirus OC43 RNA [Presence] in Nasopharynx by DMITRY with non-probe detection 09/10/2023 15:58:52 Negative Negative Final SARS-CoV-2 (COVID-19) RNA [Presence] in Nasopharynx by DMITRY with non-probe detection 09/10/2023 15:58:52 Negative Negative Final Human metapneumovirus RNA [Presence] in Nasopharynx by DMITRY with non-probe detection 09/10/2023 15:58:52 Negative Negative Final Rhinovirus+Enterovirus RNA [Presence] in Nasopharynx by DMITRY with non-probe detection 09/10/2023 15:58:52 Negative Negative Final Influenza virus A RNA [Presence] in Nasopharynx by DMITRY with non-probe detection 09/10/2023 15:58:52 Negative Negative Final Influenza virus B RNA [Presence] in Nasopharynx by DMITRY with non-probe detection 09/10/2023 15:58:52 Negative Negative Final Parainfluenza virus 1 RNA [Presence] in Nasopharynx by DMITRY with non-probe detection 09/10/2023 15:58:52 Negative Negative Final Parainfluenza virus 2 RNA [Presence] in Nasopharynx by DMITRY with non-probe detection 09/10/2023 15:58:52 Negative Negative Final Parainfluenza virus 3 RNA [Presence] in Nasopharynx by DMITRY with non-probe detection 09/10/2023 15:58:52 Negative Negative Final Parainfluenza virus 4 RNA [Presence] in Nasopharynx by DMITRY with non-probe detection 09/10/2023 15:58:52 Negative Negative Final Respiratory syncytial virus RNA [Presence] in Nasopharynx by DMITRY with non-probe detection 09/10/2023 15:58:52 Negative Negative Final Bordetella pertussis.pertussis toxin promoter region [Presence] in Nasopharynx by DMITRY with non-probe detection 09/10/2023 15:58:52 Negative Negative Final Chlamydophila pneumoniae DNA [Presence] in Nasopharynx by DMITRY with non-probe detection 09/10/2023 15:58:52 Negative Negative Final Mycoplasma pneumoniae DNA [Presence] in Nasopharynx by DMITRY with non-probe detection 09/10/2023 15:58:52 Negative Negative Final Bordetella parapertussis [id number] DNA [Presence] in Nasopharynx by DMITRY with non-probe detection 09/10/2023 15:58:52 Negative Negative Final
The primers that detect Rhinovirus may cross react with some Enterorviruses. The validation of bronchial specimens, tracheal aspirates, and throats for this assay was developed and performance characteristics determined by [employer]. The validation of alternate specimen types has not been cleared or approved by the U.S. Food and Drug Administration (FDA). It has been determined that such clearance or approval is not necessary. Performing Location [facility] [place] [address] [facility] [address]. [facility] [address]
--- OUTSIDE RECORDS SUMMARY | 2023-09-12 16:15 | External Medical Summary | Summary of Care ---
Author Name Unknown Organization [facility] Address [address] [place] [address] Phone [phone] Care Team Providers Care Layout Technician Name Role Phone Sami Stephens DO Primary Care Provider [phone] Reason for Visit * Reason Comments Other Encounter Details Date Type Department Care Team (Latest Contact Info) Description 09/10/2023 2:15 PM EST Convenient Care Visit [facility] [address] [place] [address] Lana Key PA-C [address] [facility] [place] [id number] Upper respiratory tract infection, unspecified type*; Nausea and vomiting, unspecified vomiting type Allergies Active Allergy Reactions Criticality Noted Date Comments Aspartame 08/10/2023 Pembrolizumab 07/01/2023 Penicillins 03/22/2023 Patient states had a reaction many years ago - that it was the "horse serum kind." documented as of this encounter (statuses as of 09/11/2023) Medications Medication Sig Dispensed Refills Start Date [...] the morning. 0 07/01/2023 Active Saline Nasal [place] 0.65 % Nasal Solution (Butler)Indications :Nasal drainage Administer 1 [place] into nostril every 6 hours as needed [...] as of this encounter (statuses as of 09/11/2023) Active Problems Problem Noted Date Diagnosed Date [...] as of this encounter (statuses as of 09/11/2023) Resolved Problems Problem Noted Date Diagnosed Date Resolved Date Body mass index (BMI) of 45. 0 to 49.9 in adult 01/25/2022 07/28/2023 Overview: Per Obesity protocol documented as of this encounter (statuses as of 09/11/2023) Immunizations Name Administration Dates Next Due COVID-19 mRNA, LNP-s, No Pre serve, 2-Dose Series (Moderna) 09/23/2020,08/29/2020 COVID-19, MRNA-LNP, 23-24, P F, 30 MCG/0.3 mL, 12 YRS AND ABOVE, IM (PFIZER-Comirnaty) 08/25/2023 COVID-19, mRNA, LNP-s, PF, B ooster, 100mcg/0.5mg (Moderna) 02/02/2022,06/08/2021 Covid-19, Mrna, Lnp-s, Pf, B ivalent, 50 Mcg, IM, 12 yrs and above (Moderna) 05/18/2022 Pneumococcal Conjugate Vacci ne, 20-valent ([id number]) 04/12/2022 Seasonal Influenza, Quadriva lent Hd (Fluzone Hd) 04/19/2023,04/28/2022,07/01/2021 TDAP (age 10 and older)(Boostrix) 04/12/2022 Zoster Vaccine Recombinant (Shingrix) 08/30/2018 ,05/11/2018 documented as of this encounter Social History Tobacco Use Types Packs/Day Years Used Date Smoking Tobacco: Never Passive Smoke Exposure: Never Smokeless Tobacco: Never Tobacco Cessation:Counseling Given: Not Answered Alcohol Use Standard Drinks/Week Comments Yes 0 [...] on file documented as of this encounter Last Filed Vital Signs Vital Sign Reading Time Taken Comments Blood Pressure 120/74 09/10/2023 3:08 PM EST Pulse 60 09/10/2023 3:08 PM EST Temperature 37.4 C (99.3 F) 09/10/2023 3:08 PM ES T Respiratory Rate 16 09/10/2023 3:08 PM EST Oxygen Saturation 95% 09/10/2023 3:08 PM EST Inhaled Oxygen Concentration - - Weight 141 kg (310 lb 12.8 oz) 09/10/2023 3:08 P M EST Height - - Body Mass Index 42.15 08/10/2023 2:26 PM EST documented in this encounter Patient Instructions * Patient Instructions* Lana Key PA-C - 09/10/2023 3:44 PM EST Follow up with Dr. Maldonado Blood [facility] Tuesday. Any acute worsening of symptoms, please go to ED. documented in this encounter Progress Notes * Lana Key PA-C - 09/10/2023 3:19 PM EST CONVENIENT CARE NOTE HPI: Ralf Larson is a 78 year old male who presents with chief complaint of sharp middle chestpain x 1 night. Patient was taking kotruda. He had a port put in. He had a large reaction and hasn't had kotruda. Being treated for melanoma 2 months no cleaning. Last cleaned a week ago. He notes that the port is very sore. He notes that the new flaca had some trouble. It has been sore since. Yesterday he notes that he "just didn't feel good". He had beef teriyaki sauce and margerine on rice. Developed significant indigestion. This persistent throughout the night. He was vomiting several times throughout the night. 4-5 times. He notes he hasn't vomited "since college" This morning he noted feeling mildly better. Hasn't eaten today. He has a banana in the car he was hoping to eat on the way home. states pain seems worse with eating. Pain improves with vomiting. No change in pain with inspiration, leaning forward, or lying supine. He notes that he sleeps with CPAP. Patient denies SOB, diaphoresis. Denies any hemoptysis, loss of taste/smell, dizziness. Denies history of venous thromboembolism. Past medical history significant for melanoma as above, HTN, , pre-diabetes, prostate issues. Patient is a non smoker. Patient does not have a history of asthma. Patient does not have a history ofGERD. Family hx significant for asthma, BRCA, "immune deficiency stuff". Patient was accompanied by Spouse. Constitutional: no fevers, chills, sweats, fatigue Port right chest ROS All others negative other than those noted in HPI Recent illnesses in household: No PAST MEDICAL HISTORY: Patient Active Problem List Diagnosis Code Morbid obesity due to excess calories (HCC) E66.01 Gouty arthropathy M10.9 Dyslipidemia, goal LDL below 70 E78.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, N13.8 HTN, goal below 150/90 I10 Vitamin D deficiency E55.9 SANDRINE on CPAP G47.33 Prediabetes R73.03 SCOTT (generalized anxiety disorder) F41.1 Moderate to severe aortic stenosis I35.0 Bradycardia, sinus R00.1 1st degree AV block I44.0 Sinus pause I45.5 Essential tremor G25.0 Melanoma of face (HCC) C43.30 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 Encounter for antineoplastic immunotherapy Z51.12 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 History of melanoma Z85.820 Drug-induced constipation K59.03 Body mass index (BMI) of 40.0 to 44.9 in adult (HCC) Z68.41 Past Surgical History: Procedure Laterality Date BX LYMPH NODE-SUPERFIC Left 04/11/2023 BIOPSY LYMPH NODE OPEN SUPERFICIAL performed by Tito Ortega MD at OR [facility] CATARACT SURGERY,COMPLEX 2016 BOTH EYES COLONOSCOPY has had several IDENTIFY SENTINEL NODE, RADIOACTIVE TRACER Left 04/11/2023 INJECTION PROCEDURE FOR IDENTIFICATION SENTINEL NODE performed by Tito Ortega MD at OR [facility] INFORMATION tonsils as a child IR VENOUS ACCESS MEDIPORT 05/12/2023 OTHER 2019 VIRECTOMY OD OTHER ACT [address] Townsend (08-21-21) PROCEDURE - GENERAL Left 11/23/2021 Left Inguinal hernia surgery by Dr Mak Fisher PROSTATE, LASER VAPORIZATION N/A 07/21/2022 LASER VAPORIZATION PROSTATE performed by Marbin Ivan MD at OR [facility] REMOVAL OF PROSTATE (TURP) N/A 07/21/2022 TRANSURETHRAL RESECTION PROSTATE ELECTROSURGICAL performed by Marbin Ivan MD at OR [facility] Review of patient's allergies indicates: Allergen Reactions Aspartame Keytruda [Pembrolizumab] Penicillins Patient states had a reaction many years ago - that it was the "horse serum kind." Current Outpatient Medications Medication Sig Dispense Refill Aspirin 81 MG Oral Tablet Delayed Release Take 1 Tablet by mouth daily. PM SM Vitamin D3 100 MCG (4000 UT) Oral Capsule (Cholecalciferol) Take by mouth 5,000 Units daily . CPAP every night at bedtime. 1 LPM Dulaglutide 1.5 MG/0.5ML Subcutaneous Solution Pen-injector (SiSense) INJECT 1.5MG UNDER THE SKINONCE WEEKLY (Patient not taking: Reported on 08/30/2023) 6 mL 3 Finasteride 5 MG Oral Tablet (Proscar) Take 1 Tablet by mouth in the morning. 90 Tablet 3 Sertraline HCl 50 MG Oral Tablet (Zoloft) TAKE ONE TABLET BY MOUTH EVERY MORNING (Patient taking differently: Takes at night) 100 Tablet 3 Vitamin B Complex Oral Tablet Take 1 Tablet by mouth daily. hydroCHLOROthiazide 25 MG Oral Tablet (Hydrodiuril) TAKE ONE TABLET BY MOUTH IN THE MORNING 90 Tablet 3 amLODIPine Besylate 10 MG Oral Tablet (Norvasc) TAKE ONE TABLET BY MOUTH IN THE MORNING (Patient taking differently: daily. PM) 90 Tablet 3 Losartan Potassium 100 MG Oral Tablet (Cozaar) TAKE ONE TABLET BY MOUTH IN THE MORNING 90 Tablet 3 Metoprolol Tartrate 25 MG Oral Tablet (Lopressor) TAKE ONE TABLET BY MOUTH IN THE MORNING AND ONE TABLET BEFORE BEDTIME 180 Tablet 3 Lidocaine-Prilocaine 2.5-2.5 % External Cream (Emla) APPLY TO SKIN OVER MEDIPORT & COVER 1HR PRIOR TO ACCESSING. (Patient not taking: Reported on 08/30/2023) 30 g 1 Omeprazole 20 MG Oral Capsule Delayed Release (PriLOSEC) Take 1 Capsule by mouth in the morning. (Patient not taking: Reported on 08/31/2023) 90 Capsule 1 Senna 8.6 MG Oral Capsule Take by mouth. 2 tablets twice daily Polyethylene Glycol 3350 17 GM Oral Packet (MiraLax) Take 1 Packet by mouth in the morning. Saline Nasal [place] 0.65 % Nasal Solution (Butler) Administer 1 [place] into nostril every 6 hours as needed for Congestion. Atorvastatin Calcium 20 MG Oral Tablet (Lipitor) TAKE ONE TABLET BY MOUTH EVERYDAY 100 Tablet 1 Sulfamethoxazole-Trimethoprim 800-160 MG Oral Tablet (Bactrim DS) Take 1 Tablet by mouth in the morning and 1 Tablet before bedtime. Use as directed.. 10 Tablet 0 Potassium Chloride ER 10 MEQ Oral Capsule Extended Release Take 2 capsules by mouth in the morning and 1 capsule in the evening 300 Capsule 3 Ciprofloxacin HCl 500 MG Oral Tablet (Cipro) Take 1 Tablet by mouth in the morning and 1 Tablet before bedtime. 14 Tablet 0 Mirabegron ER 50 MG Oral Tablet Extended Release 24 Hour (Myrbetriq) Take 1 Tablet by mouth in the morning. 90 Tablet 3 No current facility-administered medications for this visit. Nursing Notes: Belkis Rivera LPN 09/10/23 1517 Signed 78 yo male presents with resolving sharp middle chest pain where chemo port is, resolved indigestion with emesis last night. Took tums with relief EXAM: BP 120/74 | Pulse 60 | Temp 37.4 C (99.3 F) (Tympanic) | Resp 16 | Wt (!) 141 kg (310 lb 12.8 oz) | SpO2 95% | BMI 42.15 kg/m | BSA 2.68 m GENERAL: alert, healthy, no distress, well nourished and well developed NECK: supple, no adenopathy HEART: regular rate & rhythm, no murmurs and no gallops LUNGS: clear to auscultation bilaterally, no wheezing, rales or rhonchi ABDOMEN: abdomen soft, non-tender, normal bowel sounds, and no masses or organomegaly NEURO: alert & oriented x 3 with fluent speech, no focal motor/sensory deficits, gait normal, reflexes normal and symmetric SKIN: Exposed skin without rashes or lesions. Port with appropriate healing. No erythema or induration. Patient notes soreness with palpation around port and right breast. ASSESSMENT/PLAN Upper respiratory tract infection, unspecified type (Primary) - CBC WITH WBC DIFFERENTIAL; Future; Expected date: 09/10/2023 - COMPREHENSIVE METABOLIC PANEL; Future; Expected date: 09/10/2023 - RESPIRATORY PATHOGEN PANEL, PCR - LIPASE; Future; Expected date: 09/10/2023 Nausea and vomiting, unspecified vomiting type - CBC WITH WBC DIFFERENTIAL; Future; Expected date: 09/10/2023 - COMPREHENSIVE METABOLIC PANEL; Future; Expected date: 09/10/2023 - RESPIRATORY PATHOGEN PANEL, PCR - LIPASE; Future; Expected date: 09/10/2023 Spoke about recent emesis and possibility of new illness as well as patients concern for infection of port. Port likely sore due to recent manipulation after being sedentary. Spoke about workup for nausea/vomiting. At present patient appears euvolemic. To begin advancing diet as tolerated. Will screen for respiratory pathogen due to immunocompromised state, and screen for pancreatitis, liver, kidney, electrolyte abnormalities as well as signs of bleeding and infection. Patient would like to getblood work later this week. Also encouraged him to follow up with oncologist and PCP. Due to symptom resolution with tums, suspect some element of GERD, and recommended evaluation/treatment of this. Patient is pre-contemplative. Care instructions given. Additional instructions per patient instructions attached. Follow up with PCP in 3 days if symptoms persist. Reasons to go to ED discussed with patient including but not limited to development of acute or severe symptoms. Patient agrees with the plan and demonstrates verbal understanding. Patient stable at the time of discharge. I spent a total of 38 minutes on the date of service in preparation, delivery, and documentation ofthe care provided to Ralf Larson excluding any time spent in the performance of separately billed services. Lana Key PA-C [facility] [address] [facility] [address] documented in this encounter Nursing Notes * Belkis Rivera LPN - 09/10/2023 3:11 PM EST 78 yo male presents with resolving sharp middle chest pain where chemo port is, resolved indigestion with emesis last night. Took tums with relief documented in this encounter Plan of Treatment Upcoming Encounters Date Type Department Care Team (Late st Contact Info) Description 09/20/2023 11:15 AM EST Office Visit Dermatology [facility] [address] [facility] [place] [address] Nik Vieira MD [address] [facility] [place] [address] 09/22/2023 12:40 PM EST Laboratory Laboratory [facility] [address] [place] [id number] [facility] [address] [place] [address] 09/22/2023 1:15 PM EST Office Visit Hematology/Oncology [facility] [address] [place] [address] Rasheed Maldonado MD [address] [facility] [place] [address] 10/14/2023 11:45 AM EST Immunization/Injecti on Hematology/Oncology Treatment, [place] [address] [facility] [place] [place] [address] Nurse, Med 4 [address] [facility] [place] [address] 10/18/2023 10:00 AM EST Nurse Only Ancillary [facility] [address] [place] [address] College, Nurse Annual Wellness Visit [address] [place] [address] 11/29/2023 3:00 PM EDT Office Visit Family Practice [facility] [address] [place] [id number] Sami Stephens, DO [address] [place] [address] 12/06/2023 8:45 AM EDT Office Visit Hematology/Oncology [facility] [address] [facility] [place] [address] Rasheed Maldonado MD [address] [facility] [place] [address] 12/06/2023 2:15 PM EDT Office Visit Urology, [facility] [address] [facility] [place] [address] Marbin Ivan MD [address] [address] [place] [address] 12/12/2023 9:00 AM EDT Office Visit Ophthalmology, [facility] [address] [facility] [place] [address] Ganesh Perez, DO [address] [facility] [place] [address] 12/29/2023 10:00 AM EDT Office Visit Dermatology [facility] [address] [facility] [place] [address] Nik Vieira MD [address] [facility] [place] [address] 03/12/2024 1:10 PM EDT Office Visit Dermatology [facility] [address] [place] [address] Natasha Nova PA-C [address] [place] [address] 03/13/2024 1:30 PM EDT Office Visit Cardiology, [facility] [address] [place] [address] Angela Peter CRNP [address] [place] [address] 05/17/2024 10:00 AM EDT Office Visit Sleep Disorders Ctr [facility] 132 [place] [phone] Kathrine Haile CRNP [address] [place] [address] Scheduled Orders Name Type Priority Associated Diagnoses Orde r Schedule CBC WITH WBC DIFFERENTIAL Lab Routine Upper respiratory tract infection, unspecified type Nausea and vomiting, unspecified vomiting type Expected: 09/10/2023, Expires: 09/10/2024 COMPREHENSIVE METABOLIC PANEL Lab Routine Upper respiratory tract infection, unspecified type Nausea and vomiting, unspecified vomiting type Expected: 09/10/2023, Expires: 09/10/2024 LIPASE Lab Routine Upper respiratory tract infection, unspecified type Nausea and vomiting, unspecified vomiting type Expected: 09/10/2023, Expires: 09/10/2024 Health Maintenance Due Date Last Done Comments HbA1c 05/27/2024 05/27/2023, 01/14, 10/18/2022, Additional history exists Depression Screening 08/10/2024 08/10/2023 GFR 09/06/2024 09/06/2023, 08/15, 08/17/2023, Additional history exists Albumin/Creatinine Ratio 01/08/2025 01/08/2022, [...] this encounter Medical Devices Implanted Type Area Floorworker Distributor Device Identifier Shelf Expiration Date Model / Serial / Lot Port Implant W/8f Poly Cath - [id number] Implanted:Qty: 1 on 05/12/2023 at [facility] BARD : PERIPHERAL VASCULAR [id number] 07/14/2024 [id number] / / [id number] documented as of this encounter Procedures Procedure Name Priority Date/Time Associated Diagnosis Comments RESPIRATORY PATHOGEN PANEL, PCR Routine 09/10/2023 3:58 PM EST Upper respiratory tract infection, unspecified type Nausea and vomiting, unspecified vomiting type documented in this encounter Results * RESPIRATORY PATHOGEN PANEL, PCR (09/10/2023 3:58 PM EST) Adenovirus by PCR Negative Negative 024 7:41 PM EST [facility] Coronavirus 229E by PCR Negative Negative 09/10/2023 7:41 PM EST [facility] Coronavirus HKU1 by PCR Negative Negative 09/10/2023 7:41 PM EST [facility] Coronavirus NL63 by PCR Negative Negative 09/10/2023 7:41 PM EST [facility] Coronavirus OC43 by PCR Negative Negative 09/10/2023 7:41 PM EST [facility] Coronavirus SARS-CoV-2 by PCR Negative Negative 09/10/2023 7:41 PM EST [facility] Human Metapneumovirus by PCR Negative Negative 09/10/2023 7:41 PM EST [facility] Rhinovirus/Enterovi flavia by PCR Negative Negative 09/10/2023 7:41 PM EST [facility] Influenza A Virus by PCR Negative Negative 09/10/2023 7:41 PM EST [facility] Influenza B Virus by PCR Negative Negative 09/10/2023 7:41 PM EST [facility] Parainfluenza Virus 1 by PCR Negative Negative 09/10/2023 7:41 PM EST [facility] Parainfluenza Virus 2 by PCR Negative Negative 09/10/2023 7:41 PM EST [facility] Parainfluenza Virus 3 by PCR Negative Negative 09/10/2023 7:41 PM EST [facility] Parainfluenza Virus 4 by PCR Negative Negative 09/10/2023 7:41 PM EST [facility] Respiratory Syncytial Virus by PCR Negative Negative 09/10/2023 7:41 PM EST [facility] Bordetella pertussis by PCR Negative Negative 09/10/2023 7:41 PM EST [facility] Chlamydia pneumoniae by PCR Negative Negative 09/10/2023 7:41 PM EST [facility] Mycoplasma pneumoniae by PCR Negative Negative 09/10/2023 7:41 PM EST [facility] Bordetella parapertussis by PCR Negative Negative 09/10/2023 7:41 PM EST [facility] Comment: The primers that detect Rhinovirus may cross react with some Enterorviruses. The validation of bronchial specimens, tracheal aspirates, and throats for this assay was developed and performance characteristics determined by [employer]. The validation of alternate specimen types has not been cleared or approved by the U.S. Food and Drug Administration (FDA). It has been determined that such clearance or approval is not necessary. Upper Respiratory Mid-turbinate nasal swab / Unknown Non-blood Collection / Unknown 09/10/2023 3:58 PM EST 09/10/2023 3:58 PM EST Lana Key PA-C LAB MICRO - GENERAL ORDERABLES [facility] [address] [place] [address] documented in this encounter Visit Diagnoses Diagnosis Upper respiratory tract infection, unspecified type- Primary Nausea and vomiting, unspecified vomiting type documented in this encounter Advance Directives Latest [...] Advance Directives occurred with: Patient Care Teams Layout Technician Relationship Specialty Start Date End Date Sami Stephens DO [address] [place] [address] PCP - General Internal Medicine 01/08/22 documented as of this encounter
--- OUTSIDE RECORDS SUMMARY | 2023-09-12 16:15 | External Medical Summary ---
Author Name Unknown Address Unknown Organization [facility] [address] [place] [address] Laboratory Report Ordering Provider Test Date Status DANIEL JACK 09/06/2023 12:53:07 Final Observation Date Value Abnormality Reference (Units ) Status BUN 09/06/2023 12:53:07 13 6-20 (mg/dL) Final Creatinine 09/06/2023 12:53:07 1.1 0.6-1.2 (mg/dL) Final Glomerular filtration rate/1.73 sq M.predicted [Volume Rate/Area] in Serum, Plasma or Blood by Creatinine-based formula (CKD-EPI) 09/06/2023 12:53:07 72 >=60 (mL/min) Final eGFR is calculated based on the CKD-EPI 2020 equation SODIUM 09/06/2023 12:53:07 142 135-146 (m mol/L) Final Potassium 09/06/2023 12:53:07 4.3 3.5-5.1 (m mol/L) Final Cl 09/06/2023 12:53:07 103 98-107 (mm ol/L) Final CO2 09/06/2023 12:53:07 28 22-32 (mmo l/L) Final Anion gap 09/06/2023 12:53:07 11 7-15 (mmol /L) Final Glucose 09/06/2023 12:53:07 125 Above high normal 70 -120 (mg/dL) Final Calcium 09/06/2023 12:53:07 9.6 8.4-10.2 ( mg/dL) Final Performing Location [facility] [address] [place] [address]
--- OUTSIDE RECORDS SUMMARY | 2023-09-12 16:15 | External Medical Summary | Summary of Care ---
Author Name Unknown Organization [facility] Address [address] [place] [address] Phone [phone] Care Team Providers Care Control Clerk Name Role Phone Sami Stephens DO Primary Care Provider [phone] Encounter Details Date Type Department Care Team (Late st Contact Info) Description 09/02/2023 Telephone Dermatology [facility] [place] 200 [facility] [place] [address] Nik Vieira MD 200 [facility] [place] [address] Allergies Active Allergy Reactions Criticality Noted Date [...] the morning. 0 07/01/2023 Active Saline Nasal [place] 0.65 % Nasal Solution ([facility])Indications :Nasal drainage Administer 1 [place] into nostril every 6 hours as needed [...] MCG/0.3 mL, 12 YRS AND ABOVE, IM ([facility]) 08/25/2023 COVID-19, mRNA, LNP-s, PF, B ooster, 100mcg/0.5mg (Moderna) 02/02/2022,06/08/2021 Covid-19, Mrna, Lnp-s, Pf, B ivalent, 50 Mcg, IM, 12 yrs and above (Moderna) 05/18/2022 Pneumococcal Conjugate Vacci ne, 20-valent ([id number]) 04/12/2022 Seasonal Influenza, Quadriva lent Hd (Fluzone [...] encounter Miscellaneous Notes * Telephone Encounter - Marleny Osborne OSA - 09/02/2023 3:14 PM EST Called patient and scheduled appointment. * Telephone Encounter - Marlee Camarillo LPN [...] 09/20/2023 11:15 AM EST Office Visit Dermatology [place], [place] [address] [place] [address] Nik Vieira MD [address] [place] [address] 09/22/2023 12:40 PM EST Laboratory Laboratory [facility] [address] [place], [place] [address] [place], [facility] [address] [place] [address] 09/22/2023 1:15 PM EST Office Visit Hematology/Oncology [facility] [address] [place] [address] Rasheed Maldonado MD 200 [facility] [place], [place] [address] 10/14/2023 11:45 AM EST Immunization/Injecti on Hematology/Oncology Treatment, [place] 200 [facility], [place] [address] Nurse, Med 4 200 [facility] [place], [place] [address] 10/18/2023 10:00 AM EST Nurse Only Ancillary [address] [place] [address] College, Nurse Annual Wellness Visit [address] [place] [address] 11/18/2023 10:45 AM EDT Office Visit Hematology/Oncology [facility] [address] [place] [address] Rasheed Maldonado MD 200 [facility] [place] [address] 11/29/2023 3:00 PM EDT Office Visit Family Practice [address] [place] [address] Sami Stephens, 293 [facility] [place] [address] 12/06/2023 2:15 PM EDT Office Visit Urology, [facility] 132 [place] [address] Marbin Ivan MD 27 [facility] [address] [place] [address] 12/12/2023 9:00 AM EDT Office Visit Ophthalmology, [facility] [address] [place] [address] Ganesh Perez, DO [address] [place] [address] 12/29/2023 10:00 AM EDT Office Visit Dermatology [facility] 200 [facility] [place] [address] Nik Vieira MD 200 [facility] [place] [address] 03/12/2024 1:10 PM EDT Office Visit Dermatology [facility] [place] [address] [place] [address] Natasha Nova PA-C [address] [place] [address] 03/13/2024 1:30 PM EDT Office Visit Cardiology, [facility] [address] [place] [address] Angela Peter CRNP 400 [place] [address] 05/17/2024 10:00 AM EDT Office Visit [facility] Disorders Ctr [facility] 132 [place] [phone] Kathrine Haile CRNP 132 [place] [address] Health Maintenance Due Date Last Done Comments [...] this encounter Medical Devices Implanted Type Area Photographic Aide Device Identifier Shelf Expiration Date Model / Serial / Lot Port Implant W/8f Poly Cath - [id number] Implanted:Qty: 1 on 05/12/2023 at [facility] CR BARD : PERIPHERAL VASCULAR [id number] 07/14/2024 [id number] / / [id number] documented as of this encounter Advance Directives [...] Advance Directives occurred with: Patient Care Teams Control Clerk Relationship Specialty Start Date End Date Sami Stephens DO [address] [place] [address] PCP - General Internal Medicine 01/08/22 documented as of this encounter
--- OUTSIDE RECORDS SUMMARY | 2023-09-12 16:16 | External Medical Summary | Summary of Care ---
Author Name Unknown Organization [facility] Address [address] [place] [address] Phone [phone] Care Team Providers Care Network Operations Center Engineer Name Role Phone Kat Guero Blue DO Primary Care Provider [phone] Reason for Visit * Reason Comments Follow Up Pt here for 3 month f/u for full skin exam. Hx of melanoma. Pt has itchy rash located on R ankle, off and on for about 1 month. Denies pain. States he has been treating it with cerave lotion. Encounter Details Date Type Department Care Team (Late st Contact Info) Description 08/30/2023 11:15 AM EST Office Visit Dermatology [facility] [place] 200 [facility] [place] [address] Nik Vieira MD 200 [facility] [place] [address] Malignant melanoma of scalp (HCC)*; Actinic skin damage; Skin neoplasm; Actinic keratosis; Seborrheic keratoses; Scar; Hx of malignant melanoma Allergies Active Allergy Reactions Criticality Noted Date Comments Aspartame 08/10/2023 Pembrolizumab 07/01/2023 Penicillins 03/22/2023 Patient states had a reaction many years ago - that it was the "horse serum kind." documented as of this encounter (statuses as of 08/30/2023) Medications Medication Sig Dispensed Refills Start Date [...] SKIN ONCE WEEKLY 6 mL 3 02/07/2023 4 Active Additional Information Patient not taking.Reported [...] the morning. 90 Capsule 1 06/22/2023 Active Senna 8.6 MG Oral Capsule Take by mouth. 2 tablets twice daily 0 Active Polyethylene Glycol 3350 17 GM Oral Packet (MiraLax)Indicati ons:Drug-induced constipation Take 1 Packet by mouth in the morning. 0 07/01/2023 Active Solifenacin Succinate 5 MG Oral Tablet (VESIcare) TAKE ONE TABLET BY MOUTH EVERY DAY NEEDED (URINARY FREQUENCY 90 Tablet 2 07/18/2023 4 Active Saline Nasal [place] 0.65 % Nasal Solution (Elysian)Indication s:Nasal drainage Administer 1 [place] into nostril every 6 hours as needed for Congestion. 0 07/19/2023 Active Atorvastatin Calcium 20 MG Oral Tablet (Lipitor)Indicati ons:Dyslipidemia, goal LDL below 130 TAKE ONE TABLET BY MOUTH EVERYDAY 100 Tablet 1 08/18/2023 5 Active Potassium Chloride ER 10 MEQ Oral Capsule Extended ReleaseIndication s:Hypokalemia Take 2 Capsules by mouth in the morning. 200 Capsule 3 08/29/2023 4 Discontinue d(Refill) documented as of this encounter (statuses as of 08/30/2023) Active Problems Problem Noted Date Diagnosed Date [...] as of this encounter (statuses as of 08/30/2023) Resolved Problems Problem Noted Date Diagnosed Date Resolved Date Body mass index (BMI) of 45. 0 to 49.9 in adult 01/25/2022 07/28/2023 Overview: Per Obesity protocol documented as of this encounter (statuses as of 08/30/2023) Immunizations Name Administration Dates Next Due COVID-19 mRNA, LNP-s, No Pre serve, 2-Dose Series (Moderna) 09/23/2020,08/29/2020 COVID-19, MRNA-LNP, 23-24, P F, 30 MCG/0.3 mL, 12 YRS AND ABOVE, IM ([facility]) 08/25/2023 COVID-19, mRNA, LNP-s, PF, B ooster, 100mcg/0.5mg (Moderna) 02/02/2022,06/08/2021 Covid-19, Mrna, Lnp-s, Pf, B ivalent, 50 Mcg, IM, 12 yrs and above (Moderna) 05/18/2022 Pneumococcal Conjugate Vacci ne, 20-valent ([id number]) 04/12/2022 Seasonal Influenza, Quadriva lent Hd (Fluzone [...] on file documented as of this encounter Progress Notes * Nik Vieira MD - 08/30/2023 11:28 AM EST Chief Complaint Patient presents with Follow Up Pt here for 3 month f/u for full skin exam. Hx of melanoma. Pt has itchy rash located on R ankle, off and on for about 1 month. Denies pain. States he has been treating it with cerave lotion. Ralf Larson is a 78 year old male with history of malignant melanoma, seen today to be monitored for recurrence at previously treated sites and to be evaluated for the development of new lesions. Patient with itchy rash on right ankle, seems to come and go. 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 Mohs debulk:Residual invasive melanoma, desmoplastic type, Breslow measurement 5.9 mm. 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 Respiratory: Normal respiratory effort. Psychiatric: Patient mood and behavior are appropriate to situation. Neuro: Patient is alert and oriented. No apparent weakness or focal signs. Lymph Nodes: Lymph nodes in head, neck, and supraclavicular areas show no lymphadenopathy. Skin: Exam of the scalp, face, conjunctivae, oral mucosa, neck, chest, back, abdomen, and buttocks,and all four extremities is performed. All areas are normal except for the following findings. -There is a well-healed primary site without clinical evidence of local, satellite, or in-transit recurrence. - Scattered on face, chest, back - diffuse mottled hypopigmented and hyperpigmented macules withoutsignificant irregularity. Associated telangiectasias At the trunk and extremities are several scattered soares/brown hyperkeratotic stuck on appearing waxypapules. A. Right calf - 2cm pink smooth plaque - r/o BCC Right cheek, forehead, left forearm, left cheek - x4 total gritty erythematous macules/papules ASSESSMENT and PLAN: History of Melanoma. -History was obtained regarding new or changing moles. -Complete physical skin exam performed. -Patient counseled on self-examination for new or changing moles. The signs and symptoms of skin cancer were reviewed and the patient was advised to practice sun protection and sun avoidance, use daily sunscreen (SPF > 30), and perform regular self-skin and lymph node exams on a monthly basis. I reviewed changes to watch for including changes in the A-B-C-D's,asymmetry of a lesion, changes in border, color or diameter as well as non healing lesions. I instructed the patient to call if any new lesions appear or current lesions change. Additional Problems: Scar. - Well healed. No evidence of disease recurrence. Chronic Actinic Damage - Discussed that skin changes are due to chronic sun exposure. - Daily sun protection recommended Seborrheic keratoses - The benign nature of these lesions was discussed with the patient and that no treatment is indicated today. Skin neoplasm(s) - Shave biopsy of the following lesion(s) A. Right calf - 2cm pink smooth plaque - r/o BCC Procedure - Tangential biopsy of skin Biopsy by shave was recommended for the lesion(s) noted above to establish and confirm diagnosis. The procedure, risks, benefits, alternatives and expected outcomes were discussed with the patient and consent was obtained. Time out called. Patient identified, procedure verified, site(s) identified and verified. Patient and staff present in agreement. Area prepped with alcohol and anesthetized using 0.5% lidocaine with epinephrine at 1:200,000 concentration. Biopsy of lesion(s) performed. 20% AlCl and bandaging applied. Specimen(s) sent to pathology. Patient instructed in routine post-op care. Actinic keratosis -The diagnosis and malignant potential of the lesion was explained. Treatment options were reviewedincluding cryotherapy, topical medications, and observation. All questions were addressed. Procedure - Cryotherapy (Premalignant Destruction) -The patient would like to proceed with cryosurgery;Cryosurgery explained to the patient, consent obtained, patient, site and procedure verified, and then cryotherapy was performed with Liquid Nitrogen via cryo spray unit to 4 lesions. Location noted in physical exam. Post op course explained. -Discussed that if any of these lesions fail to completely resolve after treatment patient should call me for re-evaluation Follow up high priority melanoma clinic 3 months. Nik Vieira MD 08/30/2023, 11:28 AM CC: PCP: [place] [address] [phone] documented in this encounter Nursing Notes * Tiara King LPN - 08/30/2023 10:59 AM EST Patient identified by full name and date of Chief Complaint Patient presents with Follow Up Pt here for 3 month f/u for full skin exam. Hx of melanoma. Pt has itchy rash located on R ankle, off and on for about 1 month. Denies pain. States he has been treating it with cerave lotion. documented in this encounter Plan of Treatment Upcoming Encounters Date Type Department Care Team (Late st Contact Info) Description 08/31/2023 3:15 PM EST Procedure Only Urology, [facility] [address] [facility] [place] [address] Marbin Ivan MD 27 [facility] [address] [place] [address] 09/22/2023 12:40 PM EST Laboratory Laboratory [facility] [address] [place] [address] [place], Lab [address] [place] [address] 09/22/2023 1:15 PM EST Office Visit Hematology/Oncology [facility] [address] [place] [address] Rasheed Maldonado MD [address] [place], [place] [address] 10/18/2023 10:00 AM EST Nurse Only Ancillary 65 [facility] 293 [facility] [address] [place], Nurse Annual Wellness Visit [address] [address] 11/18/2023 10:45 AM EDT Office Visit Hematology/Oncology [facility] [address] [place], [place] [address] Rasheed Maldonado MD [address] [place] [address] 11/29/2023 3:00 PM EDT Office Visit Family Practice 65 [facility] 293 [place] [address] Guero Stephens, DO [address] [place] [address] 12/12/2023 9:00 AM EDT Office Visit Ophthalmology, [facility] 132 [place] [address] Ganesh Perez, DO 16 [place] [address] 12/29/2023 10:00 AM EDT Office Visit Dermatology [facility] [address] [place] [address] Nik Vieira MD 200 [place] [address] 03/12/2024 1:10 PM EDT Office Visit Dermatology [facility] [place] [address] [place] [address] Natasha Nova PA-C [address] [place] [address] 03/13/2024 1:30 PM EDT Office Visit Cardiology, [facility] [address] Angela Peter CRNP 400 [facility] [place] [address] 05/17/2024 10:00 AM EDT Office Visit [facility] 132 [facility] [address] Kathrine Haile [facility]NP 132 [facility] [address] Pending Results Name Type Priority Associated Diagnoses Date /Time SURGICAL PATHOLOGY Pathology Routine Skin neoplasm 08/30/2023 2:45 PM EST Health Maintenance Due Date Last [...] this encounter Medical Devices Implanted Type Area Technology Professional Device Identifier Shelf Expiration Date Model / Serial / Lot Port Implant W/8f Poly Cath - [id number] Implanted:Qty: 1 on 05/12/2023 at [facility] CR BARD : PERIPHERAL VASCULAR [id number] 07/14/2024 [id number] / / [id number] documented as of this encounter Visit Diagnoses Diagnosis Malignant melanoma of scalp (HCC)- Primary Malignant melanoma of skin of scalp and neck Actinic skin damage Other dermatitis due to solar radiation Skin neoplasm Neoplasm of unspecified nature of bone, soft tissue, and skin Actinic keratosis Seborrheic keratoses Scar Scar condition and fibrosis of skin Hx of malignant melanoma Personal history of malignant melanoma of skin documented in this encounter Advance Directives Latest [...] Advance Directives occurred with: Patient Care Teams Network Operations Center Engineer Relationship Specialty Start Date End Date Guero Stephens DO 293 [place] [address] PCP - General Internal Medicine 01/08/22 documented as of this encounter
--- OUTSIDE RECORDS SUMMARY | 2023-09-12 16:16 | External Medical Summary ---
Author Name Unknown Address Unknown Organization [id number]:[facility]ORY [facility] - [address] [facility] [address] Laboratory Report Ordering Provider Test Date Status MICHELE DOBBS 08/31/2023 15:51:44 Final Observation Date Value Abnormality Reference (Units ) Status Bacteria identified in Specimen by Culture 08/31/2023 15:51:44 [id number]^KLEBSIE LLA OXYTOCA Abnormal Final 10,000 to 100,000 colonies/m L Klebsiella oxytoca Performing Location [facility] - [address] [facility] [address] [facility] [address] Ordering Provider Test Date Status MICHELE DOBBS 08/31/2023 15:51:44 Final Observation Date Value Abnormality Reference (Units ) Status Ampicillin + Sulbactam 08/31/2023 15:51:44 8 Susceptible Final Cefepime susceptibility 08/31/2023 15:51:44 <=1 Susceptible Final Ceftriaxone suceptibility 08/31/2023 15:51:44 <=1 Susceptible Final Ciprofloxacin 08/31/2023 15:51:44 <=0.25 Susceptible Final Due to serious side effects, the FDA has advised against using Ciprofloxacin to treat uncomplicated UTIs and respiratory tract infections unless there are no alternative treatment options. Gentamicin susceptibility 08/31/2023 15:51:44 <=1 Susc eptible Final Levofloxacin susceptibility 08/31/2023 15:51:44 1 In termediate Final Due to serious side effects, the FDA has advised against using Levofloxacin to treat uncomplicated UTIs and respiratory tract infections unless there are no alternative treatment options. Nitrofurantoin susceptibility 08/31/2023 15:51:44 32 Susceptible Final Piperacillin + Tazobactamsusceptibility 08/31/2023 15:51:44 <=4 Susceptible Final TMP-SMZ susceptibility 08/31/2023 15:51:44 >=320 Resista nt Final Test: Culture, Urine, Quanti tative
Specimen Source: Urine, Cystoscopy
Specimen Type: Urine
Specimen Date: 08/31/2023 3:51 PM
Result Date: 09/02/2023 3:25 PM
Result Status: Final result
Abnormal: Yes
Resulting Lab: [facility]
[address]
[facility] [address]

CULTURE

10,000 to 100,000 colonies/mL Klebsiella oxytoca (Abnormal)

SUSCEPTIBILITY

Klebsiella oxytoca
METHOD MICROBROTH DILUTIONS

AMPICILLIN/SULBACTAM 8 Susceptible
CEFEPIME <=1 Susceptible
CEFTRIAXONE <=1 Susceptible
CIPROFLOXACIN <=0.25 Susceptible [1]
GENTAMICIN <=1 Susceptible
LEVOFLOXACIN 1 Intermediate [2]
NITROFURANTOIN 32 Susceptible
PIPERACILLIN TAZOBACTAM <=4 Susceptible
TRIMETH/SULFAMETHOXAZOLE >=320 Resistant

[1] Due to serious side effects, the FDA has advised against using
Ciprofloxacin to treat uncomplicated UTIs and respiratory tract infections
unless there are no alternative treatment options.

[2] Due to serious side effects, the FDA has advised against using
Levofloxacin to treat uncomplicated UTIs and respiratory tract infections
unless there are no alternative treatment options.

null Performing Location LAB[facility]ORY [facility] - [address] [facility] [address]
--- OUTSIDE RECORDS SUMMARY | 2023-09-12 16:16 | External Medical Summary | Summary of Care ---
Author Name Unknown Organization [facility] Address [address] [place] [address] Phone [phone] Care Team Providers Care Loan Review Officer Name Role Phone Sami Stephens DO Primary Care Provider [phone] Encounter Details Date Type Department Care Team (Late st Contact Info) Description 08/30/2023 11:45 AM EST Nurse Only Hematology/Oncology [facility] [place] [address] [place] [address] [place]ana Nurse Hem Onc [facility] [address] [place] [address] Arrived Allergies Active Allergy Reactions Criticality Noted Date [...] NEEDED (URINARY FREQUENCY 90 Tablet 2 07/18/2023 07/17/2024 Active Saline Nasal [place] 0.65 % Nasal Solution (Caribou)Indications :Nasal drainage Administer 1 [place] into nostril every 6 hours as needed for Congestion. 0 07/19/2023 Active Atorvastatin Calcium 20 MG Oral Tablet (Lipitor)Indicatio ns:Dyslipidemia, goal LDL below 130 TAKE ONE TABLET BY MOUTH EVERYDAY 100 Tablet 1 08/18/2023 08/17/2024 Active Potassium Chloride ER 10 MEQ Oral Capsule Extended ReleaseIndications :Hypokalemia Take 2 Capsules by mouth in the morning. 200 Capsule 3 08/29/2023 Active documented as of this encounter (statuses [...] MCG/0.3 mL, 12 YRS AND ABOVE, IM ([facility]) 08/25/2023 COVID-19, mRNA, LNP-s, PF, B ooster, 100mcg/0.5mg (Moderna) 02/02/2022,06/08/2021 Covid-19, Mrna, Lnp-s, Pf, B ivalent, 50 Mcg, IM, 12 yrs and above (Moderna) 05/18/2022 Pneumococcal Conjugate Vacci ne, 20-valent ([id number]) 04/12/2022 Seasonal Influenza, Quadriva lent Hd (Fluzone [...] as of this encounter Nursing Notes * Linda Sears, RN - 08/30/2023 12:07 PM EST LFT's normal. Message sent to Dr Stephens regarding potassium. Patient states that he feels ok, no complaints. Scheduled next lab appt for prior to office visit 09/22. documented in this encounter Plan of Treatment Upcoming Encounters Date Type Department Care Team (Late st Contact Info) Description 08/31/2023 3:15 PM EST Procedure Only Urology, [facility] 132 [facility] [place] [address] Marbin Ivan MD 27 [facility] [address] [place] [address] 09/22/2023 12:40 PM EST Laboratory Laboratory [facility] [address] [place] [phone] [place], Lab [facility] 200 [facility] [place] [address] 09/22/2023 1:15 PM EST Office Visit Hematology/Oncology [facility] [address] [place] [address] Rasheed Maldonado MD 200 [facility] [place] [address] 10/18/2023 10:00 AM EST Nurse Only Ancillary 65 [facility] 293 [facility], [place] [address] College, Nurse Annual Wellness Visit 65 [address] [address] 11/18/2023 10:45 AM EDT Office Visit Hematology/Oncology [facility] [address] [place] [address] Rasheed Maldonado MD 200 [facility] [address] 11/29/2023 3:00 PM EDT Office Visit Family Practice [address] [place] [address] 293 [place] [address] Sami Stephens, DO 293 [place] [address] 12/12/2023 9:00 AM EDT Office Visit Ophthalmology, [facility] 132 [place] [address] Ganesh Perez, DO 16 [place] [address] 12/29/2023 10:00 AM EDT Office Visit Dermatology [facility] 200 [facility] [place] [address] Nik Vieira MD 200 [facility] [place] [address] 03/12/2024 1:10 PM EDT Office Visit Dermatology [facility] [place] 3228 [place] [address] Natasha Nova PA-C 3228 [place] [address] 03/13/2024 1:30 PM EDT Office Visit Cardiology, [facility] 132 [place] [address] Angela Peter CRNP [address] [place] [address] [place] [phone] 05/17/2024 10:00 AM EDT Office [facility] [address] [place] [address] Kathrine Haile CRNP [address] [place] [address] Health Maintenance Due Date Last Done Comments [...] this encounter Medical Devices Implanted Type Area Cmv Driver Device Identifier Shelf Expiration Date Model / Serial / Lot Port Implant W/8f Poly Cath - [id number] Implanted:Qty: 1 on 05/12/2023 at [facility] BARD : PERIPHERAL VASCULAR [id number] 07/14/2024 [id number] / / [id number] documented as of this encounter Advance Directives [...] Advance Directives occurred with: Patient Care Teams Loan Review Officer Relationship Specialty Start Date End Date Sami Stephens DO [address] [place] [address] PCP - General Internal Medicine 01/08/22 documented as of this encounter
--- OUTSIDE RECORDS SUMMARY | 2023-09-12 16:16 | External Medical Summary | Summary of Care ---
Author Name Unknown Organization [facility] Address [address] [place] [address] Phone [phone] Care Team Providers Care Ems Coordinator Name Role Phone Sami Stephens DO Primary Care Provider [phone] Reason for Visit * Reason Onset Date Comments Test Results Lab 08/30/2023 Encounter Details Date Type Department Care Team (Late st Contact Info) Description 08/30/2023 Telephone Hematology/Oncology Treatment, [place] [address] [place] [address] Sami Stephens DO [address] [place] [address] Test Results Lab Allergies Active Allergy Reactions Criticality Noted Date [...] Tablet 2 07/18/2023 07/17/2024 Active Saline Nasal [place] 0.65 % Nasal Solution (Beaver)Indications :Nasal drainage Administer 1 [place] into nostril every 6 hours as needed [...] MCG/0.3 mL, 12 YRS AND ABOVE, IM (BlooBox-Comirnaty) 08/25/2023 COVID-19, mRNA, LNP-s, PF, B ooster, 100mcg/0.5mg (Moderna) 02/02/2022,06/08/2021 Covid-19, Mrna, Lnp-s, Pf, B ivalent, 50 Mcg, IM, 12 yrs and above (Moderna) 05/18/2022 Pneumococcal Conjugate Vacci ne, 20-valent ([id number]) 04/12/2022 Seasonal Influenza, Quadriva lent Hd (Fluzone [...] encounter Miscellaneous Notes * Telephone Encounter - Sami Stephens DO - 08/30/2023 12:56 PM EST Increase KCl 10 meq to two in the morning and one in the evening. Repeat BMP in 1 week. Potassium low due to HCTZ * Telephone Encounter - Linda Sears RN - 08/30/2023 11:59 AM EST K 3.3. Potassium managed by Dr Stephens, patient reports that he is currently taking 20mEq KCl daily,has not missed any doses. Dr Stephens: please advise on potassium results. documented in this encounter Plan of Treatment Upcoming Encounters Date Type Department Care Team (Late st Contact Info) Description 08/31/2023 3:15 PM EST Procedure Only Urology, [facility] 132 [facility] [place] [address] Marbin Ivan MD 27 [facility] 270 [place] [address] 09/22/2023 12:40 PM EST Laboratory Laboratory [facility] [place] [address] [place] [address] [place], Lab [facility] [address] [place] [address] 09/22/2023 1:15 PM EST [facility] [address] [place] [address] Rasheed Maldonado MD [address] [place], [place] [address] 10/18/2023 10:00 AM EST Nurse Only Ancillary 65 [facility] 293 [place] [address] College, Nurse Annual Wellness Visit [address] [place] [address] 11/18/2023 10:45 AM EDT Office Visit Hematology/Oncology [facility] [address] [place], [place] [address] Rasheed Maldonado MD 200 [facility] [place], [place] [address] 11/29/2023 3:00 PM EDT Office Visit Family Practice 65 [facility] 293 [place] [address] Sami Stephens, DO 293 [place] [address] 12/12/2023 9:00 AM EDT Office Visit Ophthalmology, [facility] 132 [place] [address] Ganesh Perez, DO 16 [place] [address] 12/29/2023 10:00 AM EDT Office Visit Dermatology [facility] [address] [place] [address] [place], [place] [address] Nik Vieira MD [address] [place], [place] [address] 03/12/2024 1:10 PM EDT Office Visit Dermatology [facility] [place] [address] [place] [address] Natasha Nova PA-C [address] [place] [address] 03/13/2024 1:30 PM EDT Office Visit Cardiology, [facility] 132 [facility] [place] [address] Angela Peter CRNP [address] [place] [address] 05/17/2024 10:00 AM EDT Office Visit Sleep Disorders Ctr [facility] 132 [facility] [place] [phone] Kathrine Haile CRNP 132 [facility] [place] [address] Health Maintenance Due Date Last Done Comments [...] this encounter Medical Devices Implanted Type Area Cuff Setter Device Identifier Shelf Expiration Date Model / Serial / Lot Port Implant W/8f Poly Cath - [id number] Implanted:Qty: 1 on 05/12/2023 at [facility] CR BARD : PERIPHERAL VASCULAR [id number] 07/14/2024 [id number] / / [id number] documented as of this encounter Advance Directives [...] Advance Directives occurred with: Patient Care Teams Ems Coordinator Relationship Specialty Start Date End Date Sami Stephens DO [address] [place] [address] PCP - General Internal Medicine 01/08/22 documented as of this encounter
--- OUTSIDE RECORDS SUMMARY | 2023-09-12 16:16 | External Medical Summary | Summary of Care ---
Author Name Unknown Organization [facility] Address [address] [place] [address] Phone [phone] Care Team Providers Care Seating Upholsterer Name Role Phone Sami Stephens DO Primary Care Provider Reason for Visit * Reason Onset Date Comments Emergency Department Follow-Up 06/27/2023 1 08/27 Encounter Details Date Type Department Care Team (Late st Contact Info) Description 06/27/2023 Telephone Family Practice [address], [place] 293 [place] [address] Sami Stephens DO 293 [place], [place] [id number] Emergency Department Follow-Up (06/27) Allergies Active Allergy Reactions Criticality Noted Date [...] Active Dulaglutide 1.5 MG/0.5ML Subcutaneous Solution Pen-injector (Trulicity)Indicati ons:Prediabetes INJECT 1.5MG UNDER THE SKIN ONCE WEEKLY 6 mL 3 02/07/2023 02/07/2024 Active Additional Information Patient not taking.Reported on 08/30/2023 Finasteride 5 MG Oral Tablet (Proscar)Indication s:BPH with obstruction/lower urinary tract symptoms Take 1 Tablet by mouth in the morning. 90 Tablet 3 03/02/2023 Active Sertraline HCl 50 MG Oral Tablet (Zoloft)Indications :SCOTT (generalized anxiety disorder) TAKE ONE TABLET BY MOUTH EVERY MORNING 100 Tablet 3 03/05/2023 03/04/2024 Active Additional Information Patient taking differently: Takes at night, Reported on 03/11/2023 Vitamin B Complex Oral Tablet Take 1 Tablet by mouth daily. 0 Active hydroCHLOROthiazide 25 MG Oral Tablet (Hydrodiuril)Indica tions:HTN, goal below 130/80 TAKE ONE TABLET BY MOUTH IN THE MORNING 90 Tablet 3 04/26/2023 Active amLODIPine Besylate 10 MG Oral Tablet (Norvasc)Indication s:HTN, goal below 130/80 TAKE ONE TABLET BY MOUTH IN THE MORNING 90 Tablet 3 04/26/2023 Active Additional Information Patient taking differently: Daily(Non-Specified), PM, Reported on 07/01/2023 Losartan Potassium 100 MG Oral Tablet (Cozaar)Indications :HTN, goal below 130/80 TAKE ONE TABLET BY MOUTH IN THE MORNING 90 Tablet 3 04/26/2023 Active Metoprolol Tartrate 25 MG Oral Tablet (Lopressor) TAKE ONE TABLET BY MOUTH IN THE MORNING AND ONE TABLET BEFORE BEDTIME 180 Tablet 3 04/25/2023 Active Lidocaine-Prilocain e 2.5-2.5 % External Cream (Emla)Indications: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 30 g 1 05/04/2023 Active Additional Information Patient not taking.Reported on 08/30/2023 Omeprazole 20 MG Oral Capsule Delayed Release (PriLOSEC)Indicatio ns:Melanoma of face (HCC),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),Drug-induced hepatitis Take 1 Capsule by mouth in the morning. 90 Capsule 1 06/22/2023 Active documented as of this encounter (statuses [...] Pre serve, 2-Dose Series (Moderna) 09/23/2020,08/29/2020 COVID-19, mRNA, LNP-s, PF, B ooster, 100mcg/0.5mg (Moderna) 02/02/2022,06/08/2021 Covid-19, Mrna, Lnp-s, Pf, B ivalent, 50 Mcg, IM, 12 yrs and above (Moderna) 05/18/2022 Pneumococcal Conjugate Vacci ne, 20-valent ([id number]) 04/12/2022 Seasonal Influenza, Quadriva lent Hd (Fluzone [...] encounter Miscellaneous Notes * Telephone Encounter - Jenae Garrett LPN - 06/27/2023 3:53 PM EST Is scheduled with urology on 06/30 for catheter removal. Please call and schedule in office with Dr Stephens for er follow up on Tuesday. Thank you Patient can come in anytime he has catheter concerns. For nurse appt. * Telephone Encounter - Jenae Santos RN - 06/27/2023 3:44 PM EST Emergency Department Follow Up: When was patient seen: 06/26/2023 Which ED: [facility] What were they seen for: constipation, acute urinary retention What testing did they have done: xray What did ED think was wrong (dx): see above Any new medications prescribed: sennosides-docusate 8.6-50 mg 1-2 tab bid prn, miralax bid How is patient feeling today: Patient concerns today: Call to pt-no answer-message left to call back at [phone] documented in this encounter Plan of Treatment Upcoming Encounters Date Type Department Care Team (Late st Contact Info) Description 08/31/2023 3:15 PM EST Procedure Only Urology, [facility] 132 [facility] [place] [address] Marbin Ivan MD 27 [facility] 270 [place] [address] 09/22/2023 12:40 PM EST Laboratory Laboratory [facility] 200 [facility] [place] [phone] [place], Lab [facility] 200 [facility] [place] [address] 09/22/2023 1:15 PM EST Office Visit Hematology/Oncology [facility] [address] [place] [address] Rasheed Maldonado MD [address] [place] [address] 10/18/2023 10:00 AM EST Nurse Only Ancillary 65 [facility] [place] 293 [facility] [address] College, Nurse Annual Wellness Visit [address] [address] 11/18/2023 10:45 AM EDT Office Visit Hematology/Oncology [facility] [address] [place] [address] Rasheed Maldonado MD [address] [place] [address] 11/29/2023 3:00 PM EDT Office Visit Family Practice [address] [place] [address] 293 [place] [address] Sami Stephens, DO 293 [place] [address] 12/12/2023 9:00 AM EDT Office Visit Ophthalmology, [facility] 132 [facility] [address] Ganesh Perez, DO 16 [place] [address] 12/29/2023 10:00 AM EDT Office Visit Dermatology [facility] 200 [facility] [place] [address] Nik Vieira MD 200 [facility] [place] [address] 03/12/2024 1:10 PM EDT Office Visit Dermatology [facility] 3[address] [place] [address] Natasha Nova PA-C 3228 [place] [address] 03/13/2024 1:30 PM EDT Office Visit Cardiology, [facility] 132 [facility] [place] [address] Angela Peter CRNP [address] [place] [address] [place] [phone] 05/17/2024 10:00 AM EDT Office Visit Sleep Disorders Ctr [facility] 132 [facility] [place] [address] Kathrine Haile CRNP [address] [place] [address] Health Maintenance Due Date Last Done Comments [...] this encounter Medical Devices Implanted Type Area Rn Homecare Device Identifier Shelf Expiration Date Model / Serial / Lot Port Implant W/8f Poly Cath - [id number] Implanted:Qty: 1 on 05/12/2023 at [facility] CR BARD : PERIPHERAL VASCULAR [id number] 07/14/2024 [id number] / / [id number] documented as of this encounter Advance Directives [...] Advance Directives occurred with: Patient Care Teams Seating Upholsterer Relationship Specialty Start Date End Date Sami Stephens DO 293 [place] [address] PCP - General Internal Medicine 01/08/22 documented as of this encounter
--- OUTSIDE RECORDS SUMMARY | 2023-09-12 16:16 | External Medical Summary | Summary of Care ---
Author Name Unknown Organization [facility] Address [address] [place] [address] Phone [phone] Care Team Providers Care Coin Dealer Name Role Phone Sami Stephens DO Primary Care Provider [phone] Reason for Visit * Reason Onset Date Comments Test Results Lab 08/30/2023 Encounter Details Date Type Department Care Team (Late st Contact Info) Description 08/30/2023 Telephone Hematology/Oncology Treatment, [place] [address] [place] [address] Sami Stephens DO [address] [place] [address] Test Results Lab Allergies Active Allergy Reactions [...] MOUTH EVERY MORNING 100 Tablet 3 03/05/2023 Active Additional Information Patient taking differently: Takes [...] Tablet 2 07/18/2023 4 Active Saline Nasal [place] 0.65 % Nasal Solution (Dooly)Indication s:Nasal drainage Administer 1 [place] into nostril every 6 hours as needed for Congestion. 0 07/19/2023 Active Atorvastatin Calcium 20 MG Oral Tablet (Lipitor)Indicati ons:Dyslipidemia, goal LDL below 130 TAKE ONE TABLET BY MOUTH EVERYDAY 100 Tablet 1 08/18/2023 5 Active Potassium Chloride ER 10 MEQ Oral Capsule Extended ReleaseIndication s:Hypokalemia Two capsules in the am and one in the pm. 0 08/30/2023 Active Potassium Chloride ER 10 MEQ Oral [...] MCG/0.3 mL, 12 YRS AND ABOVE, IM ([facility]) 08/25/2023 COVID-19, mRNA, LNP-s, PF, B ooster, 100mcg/0.5mg (Moderna) 02/02/2022,06/08/2021 Covid-19, Mrna, Lnp-s, Pf, B ivalent, 50 Mcg, IM, 12 yrs and above (Moderna) 05/18/2022 Pneumococcal Conjugate Vacci ne, 20-valent ([id number]) 04/12/2022 Seasonal Influenza, Quadriva lent Hd (Fluzone [...] as of this encounter Miscellaneous Notes * Addendum Note - Jenae Garrett LPN - 08/30/2023 4:38 PM ESTAddended by: JENAE GARRETT on: 08/30/2023 04:38 PM Modules accepted: Orders * Addendum Note - Jenae Garrett LPN - 08/30/2023 4:34 PM ESTAddended by: JENAE GARRETT on: 08/30/2023 04:34 PM Modules accepted: Orders * Telephone Encounter - Jenae Garrett LPN - 08/30/2023 4:26 PM EST Called, left message for patient to return call. Thank you * Telephone Encounter - Sami Stephens DO [...] 08/31/2023 3:15 PM EST Procedure Only Urology, [facility] 132 [facility] [place] [address] Marbin Ivan MD [address] [place] [address] [place] [address] 09/22/2023 12:40 PM EST Laboratory Laboratory [facility] [address] [place] [phone] [place], Lab [address] [place] [address] 09/22/2023 1:15 PM EST Office Visit Hematology/Oncology [facility] 200 [facility] [place] [address] Rasheed Maldonado MD 200 [facility] [place] [address] 10/18/2023 10:00 AM EST Nurse Only Ancillary 65 [facility] 293 [facility], [place] [address] College, Nurse Annual Wellness Visit [address], [place] [address] 11/18/2023 10:45 AM EDT Office Visit Hematology/Oncology [facility] [address] [place] [address] Rasheed Maldonado MD 200 [facility] [place] [address] 11/29/2023 3:00 PM EDT Office Visit Family Practice 65 [facility] 293 [place] [address] Sami Stephens, DO 293 [place] [address] 12/12/2023 9:00 AM EDT Office Visit Ophthalmology, [facility] 132 [place] [address] Ganesh Perez, DO 16 [place] [address] 12/29/2023 10:00 AM EDT Office Visit [facility]ology [facility] 200 [facility] [place] [address] Nik Vieira MD 200 [place] [address] 03/12/2024 1:10 PM EDT Office Visit Dermatology [facility] 3228 [place] [address] Natasha Nova PA-C 3228 [place] [address] 03/13/2024 1:30 PM EDT Office Visit Cardiology, [facility] 132 [place] [address] Angela Peter CRNP [address] [place], [place] [address] [phone] 05/17/2024 10:00 AM EDT Office Visit Sleep Disorders Ctr [facility] 132 [place] [phone] Kathrine Haile CRNP 132 [place] [address] Scheduled Orders Name Type Priority Associated Diagnoses Orde r Schedule BASIC METABOLIC PANEL Lab Routine Potassium serum decreased Expected: 09/06/2023 (Approximate), Expires: 08/29/2024 Health Maintenance Due Date Last Done Comments [...] this encounter Medical Devices Implanted Type Area Bread [employer] Pastry Baker Device Identifier Shelf Expiration Date Model / Serial / Lot Port Implant W/8f Poly Cath - [id number] Implanted:Qty: 1 on 05/12/2023 at [facility] CR BARD : PERIPHERAL VASCULAR [id number] 07/14/2024 [id number] / / [id number] documented as of this encounter Visit Diagnoses Diagnosis Potassium serum decreased- Primary Hypopotassemia Hypokalemia Hypopotassemia documented in this encounter Advance [...] Advance Directives occurred with: Patient Care Teams Coin Dealer Relationship Specialty Start Date End Date Sami Stephens DO [address] [place] [address] PCP - General Internal Medicine 01/08/22 documented as of this encounter
--- OUTSIDE RECORDS SUMMARY | 2023-09-12 16:16 | External Medical Summary | Summary of Care ---
Author Name Unknown Organization [facility] Address [address] [place] [address] Phone [phone] Care Team Providers Care Rehab Assistant Name Role Phone Guero Stephens DO Primary Care Provider [phone] Reason for Visit * Reason Comments Follow Up Encounter Details Date Type Department Care Team (Latest Contact Info) Description 08/31/2023 3:15 PM EST Procedure Only Urology, [facility] 132 [facility] [place] [address] Marbin Ivan MD [address] [place] [address] BPH with obstruction/lower urinary tract symptoms*; Urinary frequency; Urgency of urination Allergies Active Allergy Reactions Criticality Noted Date Comments Aspartame 08/10/2023 Pembrolizumab 07/01/2023 Penicillins 03/22/2023 Patient states had a reaction many years ago - that it was the "horse serum kind." documented as of this encounter (statuses as of 08/31/2023) Medications Medication Sig Dispensed Refills Start Date [...] SKIN ONCE WEEKLY 6 mL 3 02/07/2023 02/07/20 24 Active Additional Information Patient not taking.Reported on 08/30/2023 Finasteride 5 MG Oral Tablet (Proscar)Indicati ons:BPH with obstruction/lower urinary tract symptoms Take 1 Tablet by mouth in the morning. 90 Tablet 3 03/02/2023 Active Sertraline HCl 50 MG Oral Tablet (Zoloft)Indicatio ns:SCOTT (generalized anxiety disorder) TAKE ONE TABLET BY MOUTH EVERY MORNING 100 Tablet 3 03/05/2023 03/04/20 24 Active Additional Information Patient taking differently: Takes [...] the morning. 0 07/01/2023 Active Saline Nasal [place] 0.65 % Nasal Solution (Lyndon)Indication s:Nasal drainage Administer 1 [place] into nostril every 6 hours as needed for Congestion. 0 07/19/2023 Active Atorvastatin Calcium 20 MG Oral Tablet (Lipitor)Indicati ons:Dyslipidemia, goal LDL below 130 TAKE ONE TABLET BY MOUTH EVERYDAY 100 Tablet 1 08/18/2023 08/17/19 25 Active Potassium Chloride ER 10 MEQ Oral Capsule Extended ReleaseIndication s:Hypokalemia Two capsules in the am and one in the pm. 0 08/30/2023 Active Sulfamethoxazole- Trimethoprim 800-160 MG Oral Tablet (Bactrim DS) Take 1 Tablet by mouth in the morning and 1 Tablet before bedtime. Use as directed.. 10 Tablet 0 08/31/2023 Active Mirabegron ER 50 MG Oral Tablet Extended Release 24 Hour (Myrbetriq) Take 1 Tablet by mouth in the morning. 30 Tablet 6 08/31/2023 Active Solifenacin Succinate 5 MG Oral Tablet (VESIcare) TAKE ONE TABLET BY MOUTH EVERY DAY NEEDED (URINARY FREQUENCY 90 Tablet 2 07/18/2023 08/31/19 24 Discontinued Hospital, Clinic, or Other Facility Administered Medication Ordered Dose Route Frequency Start Date End Date Status sulfamethoxazole-trimethopr im DS (Bactrim DS) 800-160 MG 1 TabletIndications:BPH with obstruction/lower urinary tract symptoms,Urinary frequency 1 Tablet OR ONCE 08/31/2023 4 Active documented as of this encounter (statuses as of 08/31/2023) Active Problems Problem Noted Date Diagnosed Date [...] as of this encounter (statuses as of 08/31/2023) Resolved Problems Problem Noted Date Diagnosed Date Resolved Date Body mass index (BMI) of 45. 0 to 49.9 in adult 01/25/2022 07/28/2023 Overview: Per Obesity protocol documented as of this encounter (statuses as of 08/31/2023) Immunizations Name Administration Dates Next Due COVID-19 mRNA, LNP-s, No Pre serve, 2-Dose Series (Moderna) 09/23/2020,08/29/2020 COVID-19, MRNA-LNP, 23-24, P F, 30 MCG/0.3 mL, 12 YRS AND ABOVE, IM ([facility]) 08/25/2023 COVID-19, mRNA, LNP-s, PF, B ooster, 100mcg/0.5mg (Moderna) 02/02/2022,06/08/2021 Covid-19, Mrna, Lnp-s, Pf, B ivalent, 50 Mcg, IM, 12 yrs and above (Moderna) 05/18/2022 Pneumococcal Conjugate Vacci ne, 20-valent ([id number]) 04/12/2022 Seasonal Influenza, Quadriva lent Hd (Fluzone [...] as of this encounter Progress Notes * Marbin Ivan MD - 08/31/2023 3:29 PM EST [id number] PCP: [place] [address] [phone] Ralf Larson is a 78 year old male, who presents for cystoscopy for evaluation of persistent urinary difficulties. Patient's trouble with postop urinary retention after GreenLight TURP is noted. He notes persistent urgency and frequency. Patient's difficulties with metastatic melanoma is appreciated. He continues to undergo therapy. He remains bothered with his symptoms. BPH: Patient is being seen for BPH today. He has had the following symptoms: nocturia Q30 min - 2 hours and slow stream. Severity is moderate, improving. Difficulties with slow stream after hernia repair. He has tried finasteride and tamsulosin. Previously on Doxazosin. He has previously had cystoscopy done. Problem has been present for years. Problem is getting better since surgery. Aborted GreenLight TURP May 2022 secondary to bradycardia. GLTURP Jul 2022. Rx for solifenacin provided Oct 2022, used for short period of time, stopped due to concern over side effects, seemed to be helpful when taken. Stopped tamsulosin due to lightheadedness. Cystoscopy August 2023 demonstrate detrusor inflammation, minimal prostate regrowth. PSA Results: Lab Results Component Value Date/Time PSA - [facility] 0.44 08/25/2023 02:39 PM PSA - [facility] 0.87 12/04/2021 02:48 PM PSA - [facility] 1.99 04/07/2021 10:44 AM Current Outpatient Medications Medication Sig Dispense Refill Aspirin 81 MG Oral Tablet Delayed Release Take 1 Tablet by mouth daily. PM SM Vitamin D3 100 MCG (4000 UT) Oral Capsule (Cholecalciferol) Take by mouth 5,000 Units daily . CPAP every night at bedtime. 1 LPM Finasteride 5 MG Oral Tablet (Proscar) Take [...] ONE TABLET BEFORE BEDTIME 180 Tablet 3 Senna 8.6 MG Oral Capsule Take by mouth. 2 tablets twice daily Polyethylene Glycol 3350 17 GM Oral Packet (MiraLax) Take 1 Packet by mouth in the morning. Solifenacin Succinate 5 MG Oral Tablet (VESIcare) TAKE ONE TABLET BY MOUTH EVERY DAY NEEDED (URINARY FREQUENCY 90 Tablet 2 Saline Nasal [place] 0.65 % Nasal Solution (Lyndon) Administer 1 [place] into nostril every 6 hours as needed for Congestion. Atorvastatin Calcium 20 MG Oral Tablet (Lipitor) TAKE ONE TABLET BY MOUTH EVERYDAY 100 Tablet 1 Potassium Chloride ER 10 MEQ Oral Capsule Extended Release Two capsules in the am and one in the pm. Dulaglutide 1.5 MG/0.5ML Subcutaneous Solution Pen-injector (TimeLab) INJECT 1.5MG UNDER THE SKINONCE WEEKLY (Patient not taking: Reported on 08/30/2023) 6 mL 3 Lidocaine-Prilocaine 2.5-2.5 % External Cream (Emla) APPLY TO SKIN OVER MEDIPORT & COVER 1HR PRIOR TO ACCESSING. (Patient not taking: Reported on 08/30/2023) 30 g 1 Omeprazole 20 MG Oral Capsule Delayed Release (PriLOSEC) Take 1 Capsule by mouth in the morning. (Patient not taking: Reported on 08/31/2023) 90 Capsule 1 No current facility-administered medications for this visit. Review of patient's allergies indicates: Allergen Reactions Aspartame Keytruda [Pembrolizumab] Penicillins Patient states had a reaction many years ago - that it was the "horse serum kind." Social History: Social History Tobacco Use Smoking status: Never Passive exposure: Never Smokeless tobacco: Never Substance Use Topics Alcohol use: Yes Comment: occasional Vaping/E-Cigarette Use Vaping/E-Cigarette Use Never User Vaping/E-Cigarette Substances Vaping/E-Cigarette Devices Past Surgical History: Procedure Laterality Date BX LYMPH NODE-SUPERFIC Left 04/11/2023 BIOPSY LYMPH NODE OPEN SUPERFICIAL performed by Tito Ortega MD at [facility] CATARACT SURGERY,COMPLEX 2016 BOTH EYES COLONOSCOPY has had several IDENTIFY SENTINEL NODE, RADIOACTIVE TRACER Left 04/11/2023 INJECTION PROCEDURE FOR IDENTIFICATION SENTINEL NODE performed by Tito Ortega MD at OR [facility] INFORMATION tonsils as a child IR VENOUS ACCESS MEDIPORT 05/12/2023 OTHER 2019 VIRECTOMY OD OTHER ACT [address] Townsend (08-21-21) PROCEDURE - GENERAL Left 11/23/2021 Left Inguinal hernia surgery by Dr Mak Fisher PROSTATE, LASER VAPORIZATION N/A 07/21/2022 LASER VAPORIZATION PROSTATE performed by Marbin Ivan MD at OR [facility] REMOVAL OF PROSTATE (TURP) N/A 07/21/2022 TRANSURETHRAL RESECTION PROSTATE ELECTROSURGICAL performed by Marbin Ivan MD at OR [facility] Past Medical History: Diagnosis Date Gout Heart murmur Hypercholesteremia Hypertension Moderate aortic valve stenosis 04/28/2022 Retinal detachment 2019 Right eye Sleep apnea Sleep apnea, obstructive Patient Active Problem List Diagnosis Code Morbid obesity due to excess calories ([facility]) E66.01 Gouty arthropathy M10.9 Dyslipidemia, goal LDL below 70 E78.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, N13.8 HTN, goal below 150/90 I10 Vitamin D deficiency E55.9 SANDRINE on CPAP G47.33 Prediabetes R73.03 SCOTT (generalized anxiety disorder) F41.1 Moderate to severe aortic stenosis I35.0 Bradycardia, sinus R00.1 1st degree AV block I44.0 Sinus pause I45.5 Essential tremor G25.0 Melanoma of face ([facility]) C43.30 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 ([facility]) C79.89 Encounter for antineoplastic immunotherapy Z51.12 Metastasis to cervical lymph node ([facility]) C77.0 History of melanoma Z85.820 Drug-induced constipation K59.03 Body mass index (BMI) of 40.0 to 44.9 in adult ([facility]) Z68.41 Male : See [facility] Cystoscopy Procedure Note: Patient was properly identified and appropriate consent was confirmed. Risks and benefits of the procedure were reviewed and the patient was prepped and draped in the standard fashion for the procedure. A well lubricated 16 Kiswahili flexible cystoscope was introduced through the meatus into the urethra. Urethra demonstrated no abnormalities. Prostatic urethra demonstrated a lengthy prostatic fossa with TUR defect, no scarring or bladder neck contracture . Bladder neck was visualized and bladder was entered. Sterile saline irrigation was used to distend the bladder which was noted to have mobiledebris and adequate emptying with mucosal inflammation and patulous detrusor with grade 3 trabeculation. Bladder was completely inspected including retroflexion of the scope. Ureteral orifices were noted to be in the normal anatomic position bilaterally. [place] of urine was taken for culture. After this was completed the cystoscope was removed. Patient tolerated the procedure well without complic ations or difficulties. Cooky Machine Operator was present for entire procedure. Perioperative Bactrim was provided. Impression/Plan: 78-year-old male with inflamed detrusor, no evidence of scarring or obstruction. Findings reviewed with patient. Cystoscopy seems to suggest persistent detrusor dysfunction inflammation is the source of his symptoms. Will provide a course of empiric Bactrim to ensure a lack of urinary tract infection, but otherwise I suspect more dedicated antispasmodic use would be of help. Prescription for Myrbetriq provided, will stop solifenacin seen questionable side effects. Will see back in 3 months to check on progress. Above content is personally reviewed. Marbin Ivan MD 3:29 PM 08/31/2023 documented in this encounter Nursing Notes * Veronica Colon LPN - 08/31/2023 3:11 PM EST 6 month ret, psa results. Patient presents alone. c/o frequent nocturia, frequent urination with small amounts, urgency, small stream. Taking solifenacin, finasteride Cystoscopy consent signed. Patient's skin was prepped with hibiclens, and 2% lidocaine jelly was inserted into urethra for cystoscopy. Patient tolerated well. PSA Results: Lab Results Component Value Date/Time PSA - [facility] 0.44 08/25/2023 02:39 PM PSA - [facility] 0.87 12/04/2021 02:48 PM PSA - [facility] 1.99 04/07/2021 10:44 AM documented in this encounter Plan of Treatment Upcoming Encounters Date Type Department Care Team (Late st Contact Info) Description 09/22/2023 12:40 PM EST Laboratory Laboratory [facility] [place] [address] [place] [id number] [place] [facility] [place] [address] [address] [facility] [place] [address] 09/22/2023 1:15 PM EST Office Visit Hematology/Oncology [facility] [place] [place] [address] [place] [address] Rasheed Maldonado MD [address] [place] [address] 10/18/2023 10:00 AM EST Nurse Only Ancillary 65 [facility] 293 [place] [address] College, Nurse Annual Wellness Visit [address] [address] 11/18/2023 10:45 AM EDT Office Visit Hematology/Oncology [facility] [address] [place] [address] Rasheed Maldonado MD [address] [place] [address] 11/29/2023 3:00 PM EDT Office Visit Family Practice 65 [facility] 293 [place] [phone] Guero Stephens, [address] [place] [address] 12/06/2023 2:15 PM EDT Office Visit Urology, [facility] [address] [place] [address] Marbin Ivan MD [address] [address] 12/12/2023 9:00 AM EDT Office Visit Ophthalmology, [facility] [address] [place] [address] Ganesh Perez, DO 16 [place] [address] 12/29/2023 10:00 AM EDT Office Visit Dermatology [facility] [address] [place] [address] Nik Vieira MD [address] [place] [address] 03/12/2024 1:10 PM EDT Office Visit Dermatology [facility], [address] [address] Natasha Nova PA-C [address] [facility] [place] [address] 03/13/2024 1:30 PM EDT Office Visit Cardiology, [facility] 132 [facility] [place] [address] Angela Peter CRNP [address] [place] [phone] 05/17/2024 10:00 AM EDT Office Visit Sleep Disorders Ctr [facility] 132 [facility] [place] [phone] Kathrine Haile CRNP 132 [facility] [place] [address] Scheduled Orders Name Type Priority Associated Diagnoses Orde r Schedule CULTURE, URINE, QUANTITATIVE Lab Routine BPH with obstruction/lower urinary tract symptoms Urinary frequency Expected: 08/31/2023, Expires: 08/31/2024 CYSTOSCOPY Procedures Routine BPH with obstruction/lower urinary tract symptoms Urinary frequency Ordered: 08/31/2023 Health Maintenance Due Date Last Done Comments [...] this encounter Medical Devices Implanted Type Area Radio Operator Ground Device Identifier Shelf Expiration Date Model / Serial / Lot Port Implant W/8f Poly Cath - [id number] Implanted:Qty: 1 on 05/12/[address] [facility] CR BARD : PERIPHERAL VASCULAR [id number] 07/14/2024 [id number] / / [id number] documented as of this encounter Visit Diagnoses Diagnosis BPH with obstruction/lower urinary tract symptoms- Primary Hypertrophy of prostate with urinary obstruction and other lower urinary tract symptoms (LUTS) Urinary frequency Urgency of urination documented in this encounter Advance Directives Latest [...] Advance Directives occurred with: Patient Care Teams Rehab Assistant Relationship Specialty Start Date End Date Guero Stephens DO [address] [place] [address] PCP - General Internal Medicine 01/08/22 documented as of this encounter
--- OUTSIDE RECORDS SUMMARY | 2023-09-12 16:16 | External Medical Summary | Summary of Care ---
Author Name Unknown Organization [facility] Address [address] [place] [address] Phone [phone] Care Team Providers Care Gas Worker Name Role Phone Sami Stephens DO Primary Care Provider [phone] Reason for Visit * Reason Onset Date Comments Test Results Lab 08/30/2023 Encounter Details Date Type Department Care Team (Late st Contact Info) Description 08/30/2023 Telephone Hematology/Oncology Treatment, [place] [address] [place] [address] Sami Stephens DO [address] [place] [address] Test Results Lab Allergies Active Allergy Reactions [...] Tablet 2 07/18/2023 07/17/2024 Active Saline Nasal [place] 0.65 % Nasal Solution (Faulk)Indications :Nasal drainage Administer 1 [place] into nostril every 6 hours as needed [...] MCG/0.3 mL, 12 YRS AND ABOVE, IM (Expert360-Comirnaty) 08/25/2023 COVID-19, mRNA, LNP-s, PF, B ooster, 100mcg/0.5mg (Moderna) 02/02/2022,06/08/2021 Covid-19, Mrna, Lnp-s, Pf, B ivalent, 50 Mcg, IM, 12 yrs and above (Moderna) 05/18/2022 Pneumococcal Conjugate Vacci ne, 20-valent ([id number]) 04/12/2022 Seasonal Influenza, Quadriva lent Hd (Fluzone [...] 08/31/2023 3:15 PM EST Procedure Only Urology, [address] [place] [address] Marbin Ivan MD 27 [facility] [address] [place] [address] 09/22/2023 12:40 PM EST Laboratory Laboratory [facility] [address] [place] [phone] [place], [facility] [address] [place] [address] 09/22/2023 1:15 PM EST Office Visit Hematology/Oncology [facility] [address] [place] [address] Rasheed Maldonado MD 200 [facility] [place] [address] 10/18/2023 10:00 AM EST Nurse Only Ancillary 65 [facility] 293 [place] [address] College, Nurse Annual Wellness Visit [address] [place] [address] 11/18/2023 10:45 AM EDT Office Visit Hematology/Oncology [facility] [address] [place] [address] Rasheed Maldonado MD 200 [place] [address] 11/29/2023 3:00 PM EDT Office Visit Family Practice 65 [facility] 293 [place] [address] Sami Stephens, DO 293 [place] [address] 12/12/2023 9:00 AM EDT Office Visit Ophthalmology, [facility] [address] [facility] [place] [address] Ganesh Perez, DO 16 [facility] [place] [address] 12/29/2023 10:00 AM EDT Office Visit [facility]ermatology [facility] 200 [facility] [place] [address] Nik Vieira MD [address] [place] [address] 03/12/2024 1:10 PM EDT Office Visit Dermatology [facility] [place] [address] [place] [address] Natasha Nova PA-C [address] [place] [address] 03/13/2024 1:30 PM EDT Office Visit Cardiology, [facility] 132 [facility] [place] [address] Angela Peter CRNP 400 [facility] [place] [phone] 05/17/2024 10:00 AM EDT Office Visit Sleep Disorders Ctr [facility] 132 [facility] [place] [phone] Kathrine Haile CRNP 132 [facility] [place] [address] Scheduled Orders Name Type Priority Associated Diagnoses [...] this encounter Medical Devices Implanted Type Area Greens Laborer Device Identifier Shelf Expiration Date Model / Serial / Lot Port Implant W/8f Poly Cath - [id number] Implanted:Qty: 1 on 05/12/2023 at [facility] CR [facility]ARD : PERIPHERAL VASCULAR [id number] 07/14/2024 [id number] / / [id number] documented as of this encounter Visit Diagnoses Diagnosis Potassium serum decreased- Primary Hypopotassemia documented in this encounter Advance Directives [...] Advance Directives occurred with: Patient Care Teams Gas Worker Relationship Specialty Start Date End Date Sami Stephens DO [address] [place] [facility] [place] [address] PCP - General Internal Medicine 01/08/22 documented as of this encounter
--- OUTSIDE RECORDS SUMMARY | 2023-09-12 16:16 | External Medical Summary | Summary of Care ---
Author Name Unknown Organization [facility] Address [address] [place] [address] Phone [phone] Care Team Providers Care Drywall Mechanic Name Role Phone Guero Stephens DO Primary Care Provider [phone] Reason for Visit * Reason Comments Follow Up Encounter Details Date Type Department Care Team (Latest Contact Info) Description 08/31/2023 3:15 PM EST Procedure Only Urology, [facility] 132 [facility] [place] [address] Marbin Ivan MD [address] [place] [address] BPH with obstruction/lower urinary tract symptoms*; Urinary [...] the morning. 0 07/01/2023 Active Saline Nasal Buffalo 0.65 % Nasal Solution ([place])Indication s:Nasal drainage Administer 1 [place] into nostril every 6 hours as needed [...] frequency 1 Tablet OR ONCE 08/31/2023 4 Ended documented as of this encounter (statuses as [...] MCG/0.3 mL, 12 YRS AND ABOVE, IM ([facility]) 08/25/2023 COVID-19, mRNA, LNP-s, PF, B ooster, 100mcg/0.5mg (Moderna) 02/02/2022,06/08/2021 Covid-19, Mrna, Lnp-s, Pf, B ivalent, 50 Mcg, IM, 12 yrs and above (Moderna) 05/18/2022 Pneumococcal Conjugate Vacci ne, 20-valent ([id number]) 04/12/2022 Seasonal Influenza, Quadriva lent Hd (Fluzone [...] Ivan MD - 08/31/2023 3:29 PM EST [id number] PCP: [place] [address] [phone] Ralf Larson is a 78 year old [...] (URINARY FREQUENCY 90 Tablet 2 Saline Nasal Buffalo 0.65 % Nasal Solution ([place]) Administer 1 [place] into nostril every 6 hours as needed for Congestion. Atorvastatin Calcium 20 MG Oral Tablet (Lipitor) TAKE ONE TABLET BY MOUTH EVERYDAY 100 Tablet 1 Potassium Chloride ER 10 MEQ Oral Capsule Extended Release Two capsules in the am and one in the pm. Dulaglutide 1.5 MG/0.5ML Subcutaneous Solution Pen-injector ([email or web address]) INJECT 1.5MG UNDER THE SKINONCE WEEKLY (Patient [...] performed by Tito Ortega MD at [place] [facility] CATARACT SURGERY,COMPLEX 2016 BOTH EYES COLONOSCOPY has had several IDENTIFY SENTINEL NODE, RADIOACTIVE TRACER Left 04/11/2023 INJECTION PROCEDURE FOR IDENTIFICATION SENTINEL NODE performed by Tito Ortega MD at [place] [facility] INFORMATION tonsils as a child IR VENOUS ACCESS MEDIPORT 05/12/2023 OTHER 2019 VIRECTOMY OD OTHER ACT [address] Townsend (08-21-21) PROCEDURE - GENERAL Left 11/23/2021 Left Inguinal hernia surgery by Dr Mak Fisher PROSTATE, LASER VAPORIZATION N/A 07/21/2022 LASER VAPORIZATION PROSTATE performed by Marbin Ivan MD at OR [facility] REMOVAL OF PROSTATE (TURP) N/A 07/21/2022 TRANSURETHRAL RESECTION PROSTATE ELECTROSURGICAL performed by Marbin Ivan MD at OR [facility] Past Medical History: Diagnosis Date Gout Heart murmur Hypercholesteremia Hypertension Moderate aortic valve stenosis 04/28/2022 Retinal detachment 2019 Right eye Sleep apnea Sleep apnea, obstructive Patient Active Problem List Diagnosis Code Morbid obesity due to excess calories ([facility]) E66.01 Gouty arthropathy M10.9 Dyslipidemia, goal LDL below 70 E78.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, N13.8 HTN, goal below 150/90 I10 Vitamin D deficiency E55.9 SANDRINE on CPAP G47.33 Prediabetes R73.03 SCOTT (generalized anxiety disorder) F41.1 Moderate to severe aortic stenosis I35.0 Bradycardia, sinus R00.1 1st degree AV block I44.0 Sinus pause I45.5 Essential tremor G25.0 Melanoma of face ([facility]) C43.30 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 Cystoscopy Procedure Note: Patient was properly identified and appropriate consent was confirmed. Risks and benefits of the procedure were reviewed and the patient was prepped and draped in the standard fashion for the procedure. A well lubricated 16 Swiss flexible cystoscope was introduced through the meatus [...] procedure well without complic ations or difficulties. Program Coordinator For [employer]idence [employer] was present for entire procedure. Perioperative Bactrim [...] Description 09/22/2023 12:40 PM EST Laboratory Laboratory [facility] [place] [address] [place] [address] [facility] [place] [address] [address] [facility] [place] [address] 09/22/2023 1:15 PM EST Office Visit Hematology/Oncology [facility] [place] [place] [address] [place] [address] Rasheed Maldonado MD [address] [place] [address] 10/18/2023 10:00 AM EST Nurse Only Ancillary 65 [facility] 293 [place] [address] College, Nurse Annual Wellness Visit [address] [address] 11/18/2023 10:45 AM EDT Office Visit Hematology/Oncology [facility] [address] [place] [address] Rasheed Maldonado MD [address] [place] [address] 11/29/2023 3:00 PM EDT Office Visit Family Practice 65 [facility] 293 [place] [address] Guero Stephens, 293 [place] [address] 12/06/2023 2:15 PM EDT Office Visit Urology, [facility] 132 [place] [address] Marbin Ivan MD [address] [address] 12/12/2023 9:00 AM EDT Office Visit Ophthalmology, [facility] 132 [place] [address] Ganesh Perez, DO 16 [place] [address] 12/29/2023 10:00 AM EDT Office Visit Dermatology [facility] [address] [place] [address] Nik Vieira MD [address] [place] [address] 03/12/2024 1:10 PM EDT Office Visit Dermatology [facility], [address] [address] Natasha Nova PA-C 1822 [facility] [place] [address] 03/13/2024 1:30 PM EDT Office Visit Cardiology, [facility] 132 [facility] [place] [address] Angela Peter CRNP [address] [place] [phone] 05/17/2024 10:00 AM EDT Office Visit Sleep Disorders Ctr [facility] 132 [facility] [place] [phone] Kathrine Haile CRNP 132 [facility] [place] [address] Pending Results Name Type Priority Associated Diagnoses Date /Time CULTURE, URINE, QUANTITATIVE Lab Routine BPH with obstruction/lower urinary tract symptoms Urinary frequency 08/31/2023 3:51 PM EST Scheduled Orders Name Type Priority Associated Diagnoses [...] this encounter Medical Devices Implanted Type Area Payroll Human Resources Assistant Device Identifier Shelf Expiration Date Model / Serial / Lot Port Implant W/8f Poly Cath - [id number] Implanted:Qty: 1 on 05/12/2023 at [facility] BARD : PERIPHERAL VASCULAR [id number] 07/14/2024 [id number] / / [id number] documented as of this encounter Visit Diagnoses Diagnosis BPH with obstruction/lower urinary tract symptoms- Primary Hypertrophy of prostate with urinary obstruction and other lower urinary tract symptoms (LUTS) Urinary frequency Urgency of urination documented in this encounter Administered Medications Inactive Administered Medications - up to 3 most recent administrations Medication Order MAR Action Action Date Dose Rate Site sulfamethoxazole-trimethoprim DS (Bactrim DS) 800-160 MG 1 Tablet 1 Tablet, Oral, ONCE, On Tue08/31/23 at 1600, For 1 dose Given 08/31/2023 4:48 PM EST 1 Tablet documented in this encounter Advance Directives Latest [...] Advance Directives occurred with: Patient Care Teams Drywall Mechanic Relationship Specialty Start Date End Date Guero Stephens DO [address] [place] [address] PCP - General Internal Medicine 01/08/22 documented as of this encounter
--- OUTSIDE RECORDS SUMMARY | 2023-09-12 16:16 | External Medical Summary | Summary of Care ---
Author Name Unknown Organization [facility] Address [address] [place] [address] Phone [phone] Care Team Providers Care Power Mule Operator Name Role Phone Sami Stephens DO Primary Care Provider [phone] Reason for Visit * Reason Onset Date Comments Test Results Lab 08/30/2023 Encounter Details Date Type Department Care Team (Late st Contact Info) Description 08/30/2023 Telephone Hematology/Oncology Treatment, [place] [address] [place] [address] Sami Stephens DO [address] [place] [address] Test Results Lab Allergies Active Allergy Reactions [...] Tablet 2 07/18/2023 4 Active Saline Nasal [place] 0.65 % Nasal Solution ([place])Indication s:Nasal drainage Administer 1 [place] into nostril every 6 hours as needed [...] MCG/0.3 mL, 12 YRS AND ABOVE, IM ([employer]) 08/25/2023 COVID-19, mRNA, LNP-s, PF, B ooster, 100mcg/0.5mg (Moderna) 02/02/2022,06/08/2021 Covid-19, Mrna, Lnp-s, Pf, B ivalent, 50 Mcg, IM, 12 yrs and above (Moderna) 05/18/2022 Pneumococcal Conjugate Vacci ne, 20-valent ([id number]) 04/12/2022 Seasonal Influenza, Quadriva lent Hd (Fluzone [...] Miscellaneous Notes * Telephone Encounter - Jenae Santos RN - 08/30/2023 4:39 PM EST Pt returned call-notified of message below. Told to take 20 meq of potassium in the morning and 10 meq in evening. Pt voiced understanding and is agreeable. Pt will have BMP done in 1 week. Med list updated and BMP order placed. * Addendum Note - Jenae Garrett LPN - 08/30/2023 4:38 PM ESTAddended by: JENAE GARRETT on: 08/30/2023 04:38 PM Modules accepted: Orders * Addendum Note - Jenae Garrett LPN - 08/30/2023 4:34 PM ESTAddended by: JENAE GARRETT on: 08/30/2023 04:34 PM Modules accepted: Orders * Telephone Encounter - Jneae Garrett LPN - 08/30/2023 4:26 PM EST [...] 08/31/2023 3:15 PM EST Procedure Only Urology, [facility] 132 [facility] [place] [address] Marbin Ivan MD 27 [facility] [address] [place] [address] 09/22/2023 12:40 PM EST Laboratory Laboratory [facility] 200 [facility] [place] [phone] [facility] 200 [facility] [place] [address] 09/22/2023 1:15 PM EST Office Visit Hematology/Oncology [facility] 200 [facility] [place] [address] Rasheed Maldonado MD 200 [facility] [place] [address] 10/18/2023 10:00 AM EST Nurse Only Ancillary 65 [facility] 293 [facility], [place] [address] College, Nurse Annual Wellness Visit [address], [place] [address] 11/18/2023 10:45 AM EDT Office Visit Hematology/Oncology [facility] 200 [facility] [place] [address] Rasheed Maldonado MD 200 [facility] [place] [address] 11/29/2023 3:00 PM EDT Office Visit Family Practice [address] [place] [address], [place] 293 [place] [address] Sami Stephens, DO 293 [facility] [place] [address] 12/12/2023 9:00 AM EDT Office Visit Ophthalmology, [facility] 132 [place] [address] Ganesh Perez, DO 16 [place] [address] 12/29/2023 10:00 AM EDT Office Visit Dermatology [facility] 200 [facility] [place] [address] Nik Vieira MD 200 [facility] [place], [place] [address] 03/12/2024 1:10 PM EDT Office Visit Dermatology [facility], [place] [address] [place] [address] Natasha Nova PA-C [address] [place] [address] 03/13/2024 1:30 PM EDT Office Visit Cardiology, [facility] 132 [place] [address] Angela Peter CRNP [address] [place] [address] [place] [phone] 05/17/2024 10:00 AM EDT [facility] [address] [place] [address] Kathrine Haile CRNP [address] [place] [address] Scheduled Orders Name Type Priority Associated Diagnoses [...] this encounter Medical Devices Implanted Type Area Materials Management Manager Device Identifier Shelf Expiration Date Model / Serial / Lot Port Implant W/8f Poly Cath - [id number] Implanted:Qty: 1 on 05/12/2023 at [facility] BARD : PERIPHERAL VASCULAR [id number] 07/14/2024 [id number] / / [id number] documented as of this encounter Visit Diagnoses [...] Advance Directives occurred with: Patient Care Teams Power Mule Operator Relationship Specialty Start Date End Date Sami Stephens DO 293 [facility] [place] [address] PCP - General Internal Medicine 01/08/22 documented as of this encounter
--- OUTSIDE RECORDS SUMMARY | 2023-09-12 16:16 | External Medical Summary | Summary of Care ---
Author Name Unknown Organization [facility] Address [address] [place] [address] Phone [phone] Care Team Providers Care Salvage Cutter Name Role Phone Guero Stephens DO Primary Care Provider [phone] Reason for Visit * Reason Comments Follow Up Encounter Details Date Type Department Care Team (Latest Contact Info) Description 08/31/2023 3:15 PM EST Procedure Only Urology, [facility] 132 [facility] [place] [address] Marbin Ivan MD [address] [place] [address] BPH with obstruction/lower urinary tract symptoms*; Urinary [...] the morning. 0 07/01/2023 Active Saline Nasal [place] 0.65 % Nasal Solution ([place])Indication s:Nasal drainage Administer 1 [place] into nostril every 6 hours as needed [...] MCG/0.3 mL, 12 YRS AND ABOVE, IM ([facility]) 08/25/2023 COVID-19, mRNA, LNP-s, PF, B ooster, 100mcg/0.5mg (Moderna) 02/02/2022,06/08/2021 Covid-19, Mrna, Lnp-s, Pf, B ivalent, 50 Mcg, IM, 12 yrs and above (Moderna) 05/18/2022 Pneumococcal Conjugate Vacci ne, 20-valent ([id number]) 04/12/2022 Seasonal Influenza, Quadriva lent Hd (Fluzone [...] Ivan MD - 08/31/2023 3:29 PM EST [id number] PCP: GUERO STEPHENS [place] [address] [phone] Ralf Larson is a 78 year old [...] (URINARY FREQUENCY 90 Tablet 2 Saline Nasal Willis 0.65 % Nasal Solution ([place]) Administer 1 [place] into nostril every 6 hours as needed for Congestion. Atorvastatin Calcium 20 MG Oral Tablet (Lipitor) TAKE ONE TABLET BY MOUTH EVERYDAY 100 Tablet 1 Potassium Chloride ER 10 MEQ Oral Capsule Extended Release Two capsules in the am and one in the pm. Dulaglutide 1.5 MG/0.5ML Subcutaneous Solution Pen-injector ([employer]) INJECT 1.5MG UNDER THE SKINONCE WEEKLY (Patient [...] performed by Tito Ortega MD at [place] [facility] [place] [place] CATARACT SURGERY,COMPLEX 2016 BOTH EYES COLONOSCOPY has had several IDENTIFY SENTINEL NODE, RADIOACTIVE TRACER Left 04/11/2023 INJECTION PROCEDURE FOR IDENTIFICATION SENTINEL NODE performed by Tito Ortega MD at OR [facility] [place] [place] INFORMATION tonsils as a child IR VENOUS ACCESS MEDIPORT 05/12/2023 OTHER 2019 VIRECTOMY OD OTHER ACT [address] Townsend (08-21-21) PROCEDURE - GENERAL Left 11/23/2021 Left Inguinal hernia surgery by Dr Mak Fisher PROSTATE, LASER VAPORIZATION N/A 07/21/2022 LASER VAPORIZATION PROSTATE performed by Marbin Ivan MD at OR [facility] REMOVAL OF PROSTATE (TURP) N/A 07/21/2022 TRANSURETHRAL RESECTION PROSTATE ELECTROSURGICAL performed by Marbin Ivan MD at OR [facility] Past Medical History: Diagnosis Date Gout Heart murmur Hypercholesteremia Hypertension Moderate aortic valve stenosis 04/28/2022 Retinal detachment 2019 Right eye Sleep apnea Sleep apnea, obstructive Patient Active Problem List Diagnosis Code Morbid obesity due to excess calories ([facility]) E66.01 Gouty arthropathy M10.9 Dyslipidemia, goal LDL below 70 E78.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, N13.8 HTN, goal below 150/90 I10 Vitamin D deficiency E55.9 SANDRINE on CPAP G47.33 Prediabetes R73.03 SCOTT (generalized anxiety disorder) F41.1 Moderate to severe aortic stenosis I35.0 Bradycardia, sinus R00.1 1st degree AV block I44.0 Sinus pause I45.5 Essential tremor G25.0 Melanoma of face ([facility]) C43.30 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 Risks and benefits of the procedure were reviewed and the patient was prepped and draped in the standard fashion for the procedure. A well lubricated 16 Urdu flexible cystoscope was introduced through the meatus [...] procedure well without complic ations or difficulties. Telemetry Tech was present for entire procedure. Perioperative Bactrim [...] Description 09/22/2023 12:40 PM EST Laboratory Laboratory [facility] [place] [address] [place] [address] [facility] [place] [address] [address] [employer] [facility] [place] [address] 09/22/2023 1:15 PM EST Office Visit Hematology/Oncology [facility] [place] [address] [place] [address] Rasheed Maldonado MD [address] [place] [address] 10/18/2023 10:00 AM EST Nurse Only Ancillary 65 [facility] 293 [place] [address] College, Nurse Annual Wellness Visit [address] [address] 11/18/2023 10:45 AM EDT Office Visit Hematology/Oncology [facility] [address] [place] [address] [place] [address] Rasheed Maldonado MD [address] [place] [address] 11/29/2023 3:00 PM EDT Office Visit Family Practice 65 [facility] 293 [place] [address] Guero Stephens, 293 [place] [address] 12/06/2023 2:15 PM EDT Office Visit Urology, [facility] 132 [place] [address] Marbin Ivan MD [address] [address] 12/12/2023 9:00 AM EDT Office Visit Ophthalmology, [facility] 132 [place] [address] Ganesh Perez, DO 16 [place] [address] 12/29/2023 10:00 AM EDT Office Visit Dermatology [facility] [address] [place] [address] Nik Vieira MD [address] [place] [address] 03/12/2024 1:10 PM EDT Office Visit Dermatology [facility], [address] [address] Natasha Nova PA-C 8855 [facility] [place] [address] 03/13/2024 1:30 PM EDT Office Visit Cardiology, [facility] 132 [facility] [place] [address] Angela Peter CRNP [address] [place] [phone] 05/17/2024 10:00 AM EDT Office Visit Sleep Disorders Ctr [facility] 132 [facility] [place] [phone] Kathrine Haile CRNP 132 [facility] [place] [address] Pending Results Name Type Priority Associated Diagnoses [...] this encounter Medical Devices Implanted Type Area Steamboat Inspector Device Identifier Shelf Expiration Date Model / Serial / Lot Port Implant W/8f Poly Cath - [id number] Implanted:Qty: 1 on 05/12/2023 at [facility] BARD : PERIPHERAL VASCULAR [id number] 07/14/2024 [id number] / / [id number] documented as of this encounter Visit Diagnoses [...] Advance Directives occurred with: Patient Care Teams Salvage Cutter Relationship Specialty Start Date End Date Guero Stephens DO [address] [place] [address] PCP - General Internal Medicine 01/08/22 documented as of this encounter
--- OUTSIDE RECORDS SUMMARY | 2023-09-12 16:16 | External Medical Summary | Summary of Care ---
Author Name Unknown Organization [facility] Address [address] [place] [address] Phone [phone] Care Team Providers Care Sanding Machine Operator Or Tender Name Role Phone Sami Stephens DO Primary Care Provider [phone] Reason for Visit * Reason Onset Date Comments Test Results Lab 08/30/2023 Encounter Details Date Type Department Care Team (Late st Contact Info) Description 08/30/2023 Telephone Hematology/Oncology Treatment, [place] [address] [place] [address] Sami Stephens DO [address] [place] [address] Test Results Lab Allergies Active Allergy Reactions [...] Tablet 2 07/18/2023 07/17/2024 Active Saline Nasal [place] 0.65 % Nasal Solution (Alpine)Indications :Nasal drainage Administer 1 [place] into nostril every 6 hours as needed [...] MCG/0.3 mL, 12 YRS AND ABOVE, IM ([employer]Comir[employer]) 08/25/2023 COVID-19, mRNA, LNP-s, PF, B ooster, 100mcg/0.5mg (Moderna) 02/02/2022,06/08/2021 Covid-19, Mrna, Lnp-s, Pf, B ivalent, 50 Mcg, IM, 12 yrs and above (Moderna) 05/18/2022 Pneumococcal Conjugate Vacci ne, 20-valent ([id number]) 04/12/2022 Seasonal Influenza, Quadriva lent Hd (Fluzone [...] encounter Miscellaneous Notes * Telephone Encounter - Linda Sears RN [...] 08/31/2023 3:15 PM EST Procedure Only U[facility], [facility] [address] Marbin Ivan MD [address] [place] [address] 09/22/2023 12:40 PM EST Laboratory Laboratory [facility] [address] [place] [address] [facility] 200 [facility] [place] [address] 09/22/2023 1:15 PM EST Office Visit Hematology/Oncology [facility] [address] [place] [address] Rasheed Maldonado MD 200 [facility] [place] [address] 10/18/2023 10:00 AM EST Nurse Only Ancillary [address] [place] [address] [facility] [address] [place], Nurse Annual Wellness Visit 65 [facility] 293 [place] [address] 11/18/2023 10:45 AM EDT Office Visit Hematology/Oncology [facility] 200 [facility] [place] [address] Rasheed Maldonado MD 200 [facility] [address] 11/29/2023 3:00 PM EDT Office Visit Family Practice 65 [facility] 293 [place] [address] Sami Stephens, DO 293 [facility] [place] [address] 12/12/2023 9:00 AM EDT Office Visit Ophthalmology, [facility] 132 [facility] [place] [address] Ganesh Perez, DO 16 [place] [address] 12/29/2023 10:00 AM EDT Office Visit Dermatology [facility] 200 [facility] [place], [place] [address] Nik Vieira MD 200 [facility], [place] [address] 03/12/2024 1:10 PM EDT Office Visit [facility] [place] [facility] [address] Natasha Nova PA-C 3[address] [facility] [place] [address] 03/13/2024 1:30 PM EDT Office Visit Cardiology, [facility] 132 [facility] [place] [address] Angela Peter CRNP [address] [place] [address] [place] [address] 05/17/2024 10:00 AM EDT Office Visit [facility] [address] [place] [phone] Kathrine Haile, OLEG [address] [place] [address] Health Maintenance Due Date Last Done Comments [...] this encounter Medical Devices Implanted Type Area Portable Machine Cutter Device Identifier Shelf Expiration Date Model / Serial / Lot Port Implant W/8f Poly Cath - [id number] Implanted:Qty: 1 on 05/12/2023 at [facility] BARD : PERIPHERAL VASCULAR [id number] 07/14/2024 [id number] / / [id number] documented as of this encounter Advance Directives [...] Advance Directives occurred with: Patient Care Teams Sanding Machine Operator Or Tender Relationship Specialty Start Date End Date Sami Stephens DO [address] [place] [address] PCP - General Internal Medicine 01/08/22 documented as of this encounter
--- OUTSIDE RECORDS SUMMARY | 2023-09-12 16:16 | External Medical Summary | Summary of Care ---
Author Name Unknown Organization [facility] Address [address] [place] [address] Phone [phone] Care Team Providers Care Certified Prosthetist/Orthotist Name Role Phone Guero Stephens DO Primary Care Provider [phone] Reason for Visit * Reason Comments Follow Up Encounter Details Date Type Department Care Team (Latest Contact Info) Description 08/31/2023 3:15 PM EST Procedure Only Urology, [facility] 132 [facility] [place] [address] Marbin Ivan MD [address] [place] [address] [place] [address] BPH with obstruction/lower urinary tract symptoms*; Urinary [...] the morning. 0 07/01/2023 Active Saline Nasal [place] 0.65 % Nasal Solution (Vicco)Indication s:Nasal drainage Administer 1 [place] into nostril every 6 hours as needed [...] MCG/0.3 mL, 12 YRS AND ABOVE, IM ([facility]) 08/25/2023 COVID-19, mRNA, LNP-s, PF, B ooster, 100mcg/0.5mg (Moderna) 02/02/2022,06/08/2021 Covid-19, Mrna, Lnp-s, Pf, B ivalent, 50 Mcg, IM, 12 yrs and above (Moderna) 05/18/2022 Pneumococcal Conjugate Vacci ne, 20-valent ([id number]) 04/12/2022 Seasonal Influenza, Quadriva lent Hd (Fluzone [...] Ivan MD - 08/31/2023 3:29 PM EST [id number] PCP: GUERO [place] [address] [phone] Ralf Larson is a 78 year old [...] (URINARY FREQUENCY 90 Tablet 2 Saline Nasal [place] 0.65 % Nasal Solution (Vicco) Administer 1 [place] into nostril every 6 hours as needed for Congestion. Atorvastatin Calcium 20 MG Oral Tablet (Lipitor) TAKE ONE TABLET BY MOUTH EVERYDAY 100 Tablet 1 Potassium Chloride ER 10 MEQ Oral Capsule Extended Release Two capsules in the am and one in the pm. Dulaglutide 1.5 MG/0.5ML Subcutaneous Solution Pen-injector (Egully) INJECT 1.5MG UNDER THE SKINONCE WEEKLY (Patient [...] performed by Tito Ortega MD at OR [facility] CATARACT SURGERY,COMPLEX 2016 BOTH EYES COLONOSCOPY has had several IDENTIFY SENTINEL NODE, RADIOACTIVE TRACER Left 04/11/2023 INJECTION PROCEDURE FOR IDENTIFICATION SENTINEL NODE performed by Tito Ortega MD at OR [facility] INFORMATION tonsils as a child IR VENOUS ACCESS MEDIPORT 05/12/2023 OTHER 2019 VIRECTOMY OD OTHER ACT [address] Townsend (08-21-21) PROCEDURE - GENERAL Left 11/23/2021 Left Inguinal hernia surgery by Dr Mak Fisher PROSTATE, LASER VAPORIZATION N/A 07/21/2022 LASER VAPORIZATION PROSTATE performed by Marbin Ivan MD at OR [facility] REMOVAL OF PROSTATE (TURP) N/A 07/21/2022 TRANSURETHRAL RESECTION PROSTATE ELECTROSURGICAL performed by Marbin Ivan MD at OR [facility] Past Medical History: Diagnosis Date Gout Heart murmur Hypercholesteremia Hypertension Moderate aortic valve stenosis 04/28/2022 Retinal detachment 2019 Right eye Sleep apnea Sleep apnea, obstructive Patient Active Problem List Diagnosis Code Morbid obesity due to excess calories ([facility]) E66.01 Gouty arthropathy M10.9 Dyslipidemia, goal LDL below 70 E78.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, N13.8 HTN, goal below 150/90 I10 Vitamin D deficiency E55.9 SANDRINE on CPAP G47.33 Prediabetes R73.03 SCOTT (generalized anxiety disorder) F41.1 Moderate to severe aortic stenosis I35.0 Bradycardia, sinus R00.1 1st degree AV block I44.0 Sinus pause I45.5 Essential tremor G25.0 Melanoma of face ([facility]) C43.30 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 Risks and benefits of the procedure were reviewed and the patient was prepped and draped in the standard fashion for the procedure. A well lubricated 16 Spanish flexible cystoscope was introduced through the meatus [...] procedure well without complic ations or difficulties. Hand Stonecutter was present for entire procedure. Perioperative Bactrim [...] Description 09/22/2023 12:40 PM EST Laboratory Laboratory [facility] [place] [address] [place] [phone] [facility] [place] [address] [address] [facility] [place] [address] 09/22/2023 1:15 PM EST Office Visit Hematology/Oncology [facility] [place] [address] [place] [address] Rasheed Maldonado MD [address] [place] [address] 10/18/2023 10:00 AM EST Nurse Only Ancillary 65 [facility] 293 [place] [address] College, Nurse Annual Wellness Visit [address] [address] 11/18/2023 10:45 AM EDT Office Visit Hematology/Oncology [facility] [address] [place] [address] Rasheed Maldonado MD [address] [place] [address] 11/29/2023 3:00 PM EDT Office Visit Family Practice 65 [facility] 293 [place] [phone] Guero Stephens, 293 [place] [address] 12/06/2023 2:15 PM EDT Office Visit Urology, [facility] [address] [place] [address] Marbin Ivan MD [address] [address] 12/12/2023 9:00 AM EDT Office Visit Ophthalmology, [facility] [address] [place] [address] Ganesh Perez, DO 16 [place] [address] 12/29/2023 10:00 AM EDT Office Visit Dermatology [facility] [address] [place] [address] Nik Vieira MD [address] [place] [address] 03/12/2024 1:10 PM EDT Office Visit Dermatology [facility], [address] [address] Natasha Nova PA-C 6269 [facility] [place] [address] 03/13/2024 1:30 PM EDT Office Visit Cardiology, [facility] 132 [facility] [place] [address] Angela Peter CRNP [address] [place] [phone] 05/17/2024 10:00 AM EDT Office Visit Sleep Disorders [facility] 132 [facility] [place] [phone] Kathrine Haile CRNP 132 [facility] [place] [address] Pending Results Name Type Priority Associated Diagnoses [...] this encounter Medical Devices Implanted Type Area Composition Floor Setter Device Identifier Shelf Expiration Date Model / Serial / Lot Port Implant W/8f Poly Cath - [id number] Implanted:Qty: 1 on 05/12/2023 at [facility] BARD : PERIPHERAL VASCULAR [id number] 07/14/2024 [id number] / / [id number] documented as of this encounter Visit Diagnoses [...] Advance Directives occurred with: Patient Care Teams Certified Prosthetist/Orthotist Relationship Specialty Start Date End Date Guero Stephens DO [address] [place] [address] PCP - General Internal Medicine 01/08/22 documented as of this encounter
--- OUTSIDE RECORDS SUMMARY | 2023-09-12 16:17 | External Medical Summary ---
Author Name Unknown Address Unknown Organization K09:[facility] [address] [place] [address] Laboratory Report Ordering Provider Test Date Status EMANI CAMPBELL 08/30/2023 10:47:46 Final Observation Date Value Abnormality Reference (Units ) Status BUN 08/30/2023 10:47:46 15 6-20 (mg/dL) Final Creatinine 08/30/2023 10:47:46 1.2 0.6-1.2 (mg/dL) Final Glomerular filtration rate/1.73 sq M.predicted [Volume Rate/Area] in Serum, Plasma or Blood by Creatinine-based formula (CKD-EPI) 08/30/2023 10:47:46 63 >=60 (mL/min) Final eGFR is calculated based on the CKD-EPI 2020 equation SODIUM 08/30/2023 10:47:46 145 135-146 (m mol/L) Final Potassium 08/30/2023 10:47:46 3.3 Below low normal 3.5 -5.1 (mmol/L) Final Cl 08/30/2023 10:47:46 106 98-107 (mm ol/L) Final CO2 08/30/2023 10:47:46 29 22-32 (mmo l/L) Final Anion gap 08/30/2023 10:47:46 10 7-15 (mmol /L) Final Glucose 08/30/2023 10:47:46 140 Above high normal 70 -120 (mg/dL) Final Albumin 08/30/2023 10:47:46 4.0 3.8-5.0 (g /dL) Final AST (Aspartate aminotransferase) 08/30/2023 10:47:46 24 10-50 (U/L) Fin al Alk Phos 08/30/2023 10:47:46 75 35-130 (U/ L) Final Bilirubin, Total 08/30/2023 10:47:46 0.5 <=1 .2 (mg/dL) Final Calcium 08/30/2023 10:47:46 9.5 8.4-10.2 ( mg/dL) Final Protein 08/30/2023 10:47:46 6.9 6.0-8.3 (g /dL) Final ALT (Alanine aminotransferase) 08/30/2023 10:47:46 20 10-50 (U/L) Hardik hopkins Performing Location [facility] [address] [place] [address]
--- OUTSIDE RECORDS SUMMARY | 2023-09-12 16:17 | External Medical Summary | Summary of Care ---
Author Name Unknown Organization [facility] Address [address] [place] [address] Phone [phone] Care Team Providers Care Rn Social Work Name Role Phone Sami Stephens DO Primary Care Provider [phone] Reason for Visit * Reason Onset Date Comments Medication Pre-auth 08/16/2023 trulicity Encounter Details Date Type Department Care Team (Late st Contact Info) Description 08/16/2023 Telephone Family Practice [address] [place] [address] [place] [address] Sami Stephens DO [address] [place], [place] [id number] Medication Pre-auth (trulicity) Allergies Active Allergy Reactions Criticality Noted Date Comments Aspartame 08/10/2023 Pembrolizumab 07/01/2023 Penicillins 03/22/2023 Patient states had a reaction many years ago - that it was the "horse serum kind." documented as of this encounter (statuses as of 08/18/2023) Medications Medication Sig Dispensed Refills Start Date [...] 3 02/07/2023 02/07/2024 Active Additional Information Patient taking differently: Tuesday, Reported on 07/01/2023 Atorvastatin Calcium 20 MG Oral Tablet (Lipitor)Indication s:Dyslipidemia, goal LDL below 130 TAKE ONE TABLET BY MOUTH EVERY MORNING 100 Tablet 3 10/19/2022 11/11/2023 Active Finasteride 5 MG Oral Tablet (Proscar)Indication s:BPH [...] TO ACCESSING. 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 90 Capsule 1 06/22/2023 Active Senna 8.6 MG Oral Capsule Take by mouth. 2 tablets twice daily 0 Active Polyethylene Glycol 3350 17 GM Oral Packet (MiraLax)Indication s:Drug-induced constipation Take 1 Packet by mouth in the morning. 0 07/01/2023 Active Solifenacin Succinate 5 MG Oral Tablet (VESIcare) TAKE ONE TABLET BY MOUTH EVERY DAY NEEDED (URINARY FREQUENCY 90 Tablet 2 07/18/2023 07/17/2024 Active Saline Nasal [place] 0.65 % Nasal Solution (Brown)Indications: Nasal drainage Administer 1 [place] into nostril every 6 hours as needed for Congestion. 0 07/19/2023 Active Potassium Chloride Nicky ER 20 MEQ Oral Tablet Extended ReleaseIndications: Hypokalemia Take 1 Tablet by mouth in the morning. 30 Tablet 1 08/10/2023 Active documented as of this encounter (statuses as of 08/18/2023) Active Problems Problem Noted Date Diagnosed Date [...] as of this encounter (statuses as of 08/18/2023) Resolved Problems Problem Noted Date Diagnosed Date Resolved Date Body mass index (BMI) of 45. 0 to 49.9 in adult 01/25/2022 07/28/2023 Overview: Per Obesity protocol documented as of this encounter (statuses as of 08/18/2023) Immunizations Name Administration Dates Next Due COVID-19 mRNA, LNP-s, No Pre serve, 2-Dose Series (Moderna) 09/23/2020,08/29/2020 COVID-19, mRNA, LNP-s, PF, B ooster, 100mcg/0.5mg (Moderna) 02/02/2022,06/08/2021 Covid-19, Mrna, Lnp-s, Pf, B ivalent, 50 Mcg, IM, 12 yrs and above (Moderna) 05/18/2022 Pneumococcal Conjugate Vacci ne, 20-valent ([id number]) 04/12/2022 Seasonal Influenza, Quadriva lent Hd (Fluzone [...] encounter Miscellaneous Notes * Telephone Encounter - Bong Sultana CPhT - 08/18/2023 9:50 AM EST Per 08/17 enc "Will need to see if patient ever diagnosed with diabetes, or else not eligible for Trulicity unless A1c > 6.5% " Please also see pt msg - questions if they should consider paying oop Thank you, Onesimo Sultana ([facility]) Loader Engineer III [facility] ([facility] ([facility]) 08/18/2023, 9:50 AM * Telephone Encounter - Jenae Garrett LPN - 08/17/2023 9:14 AM EST See encounter from today, medication was denied. Thank you * Telephone Encounter - Tracy Hsieh RPh - 08/17/2023 8:29 AM EST Faxed form per documentation below at 8:28 am Please submit PA. Include the following documentation: 08/10/23 ov 08/01/23 ov Please copy and paste the following information into PA form: Continuation of therapy Bmi 41.45 What other drugs is there medical record documentation of therapeutic failure on, intolerance to, or contraindication to for this condition? N/a Cliff as urgent: No Diagnosis/ICD-10 Code(s): e11.9 r73.03 * Telephone Encounter - Kathi Hennessy OSA - 08/17/2023 8:17 AM EST THELMA left from [facility] requesting more information. Form was faxed w requested information to us to be filled out and faxed back. Also stating, the auth must be submitted by 9:00 am. * Telephone Encounter - Kathi Hennessy OSA - 08/16/2023 4:28 PM EST [facility]. They are looking for information on if the patient has a diagnosis of type II diabetes [phone] [place] - if so, please fax to [phone] * [facility]16/[facility]23 1:45 PM EST Please submit PA. Include the following documentation: 08/10/23 ov 08/01/23 ov Please copy and paste the following information into PA form: Continuation of therapy Bmi 41.45 What other drugs is there medical record documentation of therapeutic failure on, intolerance to, or contraindication to for this condition? N/a Cliff as urgent: No Diagnosis/ICD-10 Code(s): e11.9 r73.03 If instantaneous decision is not received after submitting prior auth, please continue to follow upon this and route back to the [facility] pool if no decision is made by the insurance by 08/22, after clarifying with the pharmacy that the claim is still not processing. If PA is denied, please also route back to [facility] pool. Thanks, Chuck Castro, Ines Clinical Pharmacist [facility] ([facility]) (formerly Telepharmacy) [phone] 08/16/2023, 1:45 PM * Telephone Encounter - Vidya Deras PHARM Tech - 08/16/2023 1:38 PM EST This is a new PA request. Upon review of this prior authorization request, I verified this request is appropriate. This is prescribed by a department for which [facility] is authorized to review prior authorizations This is not a duplicate encounter regarding the same prior authorization The patient is planning to use insurance The insurance information listed in previous note is correct and the plan that is requiring prior authorization The insurance does not cover either brand or generic forms of this script as written without prior authorization The insurance does not cover any NDCs of this script without prior authorization RX Estimate tool confirms this script needs prior authorization Of note, there is nothing currently pending in Center for this request. Please advise how to proceed. Thanks, Vidya Deras Loader Engineer III [facility] ([facility]) 08/16/2023,1:38 PM * Telephone Encounter - Antonina Arthur CPhT - 08/16/2023 12:24 PM EST Pharmacy calling to inform doctor that the patient's insurance will not pay for this medication without a completed prior authorization. Did confirm this information with the pharmacy. Pt's current insurance information is as follows: Patient name: Ralf Larson ID number: [id number] BIN number: [id number] PCN number: [id number] Group number: [id number] Subscriber name: Ralf Larson Primary or Secondary Insurance:Primary Medication: trulicity Reason for Request: PA required Pharmacy and phone number: [facility] [phone] Rx plan and phone number: [facility] [phone] Is this a new medication for the patient? No. How did the patient obtain the medication on the lastfill? It was covered last time on this same insurance. What alternative medications does the pharmacy have in stock?: Thank you, Antonina Arthur CPhT Loader Engineer [facility] ([facility]) (Formerly Telepharmacy) 08/16/2023, 12:25 PM documented in this encounter Plan of Treatment Upcoming Encounters Date Type Department Care Team (Late st Contact Info) Description 08/30/2023 10:40 AM EST Laboratory Laboratory [place] [address] [place], [place] [phone] Park, [facility] [address] [place], [place] [address] 08/30/2023 11:15 AM EST Office Visit Dermatology [facility] [address] [place], [place] [address] Nik Vieira MD [address] [place], [place] [address] 08/30/2023 11:45 AM EST Nurse Only Hematology/Oncology [facility] [address] [place], [place] [address] Jordana, Nurse Hem Onc [place] [address] [place] [address] 08/31/2023 3:15 PM EST Procedure Only Urology, [facility] [address] [facility] [address] Marbin Ivan MD 27 [facility] [address] [place] [address] 09/22/2023 1:15 PM EST Office Visit Hematology/Oncology [facility] [address] [place], [place] [address] Rasheed Maldonado MD [address] [place] [address] 10/18/2023 10:00 AM EST Nurse Only Ancillary 65 [facility] 293 [place] [address] College, Nurse Annual Wellness Visit 65 [facility] 293 [facility] [place], [place] [address] 11/18/2023 10:45 AM EDT Office Visit Hematology/Oncology [facility] [address] [place], [place] [address] Rasheed Maldonado MD [address] [place] [address] 11/29/2023 3:00 PM EDT Office Visit Family Practice [address] [place] [address] [place] [address] Sami Stephens, DO [address] [place] [address] 12/12/2023 9:00 AM EDT Office Visit Ophthalmology, [facility] 132 [place] [address] Ganesh Perez, DO [address] [place] [address] 03/12/2024 1:10 PM EDT Office Visit Dermatology [facility] [address] [place] [address] Natasha Nova PA-C [address] [place] [address] 03/13/2024 1:30 PM EDT Office Visit Cardiology, [facility] 132 [place] [address] Angela Peter CRNP [address] [place] [address] [place] [phone] 05/17/2024 10:00 AM EDT Office Visit Sleep Disorders Ctr [facility] 132 [place] [phone] Kathrine Haile CRNP 132 [facility] [place] [address] Health Maintenance Due Date Last Done Comments COVID-19 Vaccine (2022-24 season) 2023 05/18/2022, 02/02/2022, 06/08/2021, Additional history exists HbA1c 05/27/2024 05/27/2023, 01/14, 10/18/2022, Additional history exists Depression Screening 08/10/2024 08/10/2023 GFR 08/17/2024 08/17/2023, 07/16, 07/19/2023, Additional history exists Albumin/Creatinine Ratio 01/08/2025 01/08/2022, 03/16 DTaP,Tdap,and Td Vaccines (2 - Td or Tdap) 04/12/2032 04/12/2022 Colonoscopy Discontinued 09/09/2016 Colorectal Cancer Screening Discontinued Zoster Vaccines Completed 08/30/2018, 05/11/2018 Pneumococcal Vaccine: 65+ Years Completed 04/12/2022 Influenza Vaccine (FLU shot) Completed 04/19/2023, 04/28/2022, 07/01/2021 Cologuard Discontinued Fecal Occult Blood Test Discontinued [...] this encounter Medical Devices Implanted Type Area Medical Assembly Device Identifier Shelf Expiration Date Model / Serial / Lot Port Implant W/8f Poly Cath - [id number] Implanted:Qty: 1 on 05/12/2023 at [facility] CR BARD : PERIPHERAL VASCULAR [id number] 07/14/2024 [id number] / / [id number] documented as of this encounter Visit Diagnoses Diagnosis Prediabetes Other abnormal glucose documented in this encounter Advance Directives Latest [...] Advance Directives occurred with: Patient Care Teams Rn Social Work Relationship Specialty Start Date End Date Sami Stephens DO [address] [place] [address] PCP - General Internal Medicine 01/08/22 documented as of this encounter
--- OUTSIDE RECORDS SUMMARY | 2023-09-12 16:17 | External Medical Summary | Summary of Care ---
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) Allergies Active Allergy Reactions Criticality Noted Date [...] Patient taking differently: Tuesday, Reported on 07/01/2023 Finasteride 5 MG Oral Tablet (Proscar)Indicatio ns:BPH [...] Tablet 2 07/18/2023 07/17/2024 Active Saline Nasal [place] 0.65 % Nasal Solution ([place])Indications :Nasal drainage Administer 1 [place] into nostril every 6 hours as needed [...] MCG/0.3 mL, 12 YRS AND ABOVE, IM (FlexMinder-Comirnaty) 08/25/2023 COVID-19, mRNA, LNP-s, PF, B ooster, 100mcg/0.5mg (Moderna) 02/02/2022,06/08/2021 Covid-19, Mrna, Lnp-s, Pf, B ivalent, 50 Mcg, IM, 12 yrs and above (Moderna) 05/18/2022 Pneumococcal Conjugate Vacci ne, 20-valent ([id number]) 04/12/2022 Seasonal Influenza, Quadriva lent Hd (Fluzone [...] 08/30/2023 11:15 AM EST Office Visit Dermatology [facility] [address] [place] [address] Nik Vieira MD 200 [facility] [place] [address] Arrived 08/30/2023 11:45 AM EST Nurse Only Hematology/Oncology [facility] [address] [place] [address] [place], Nurse Hem Onc [facility] [address] [place] [address] 08/31/2023 3:15 PM EST Procedure Only Urology, [facility] 132 [facility] [place] [id number] Marbin Ivan MD [address] [facility] [address] [place] [address] 09/22/2023 1:15 PM EST Office Visit Hematology/Oncology [facility] [address] [place] [address] Rasheed Maldonado MD 200 [facility] [place] [address] 10/18/2023 10:00 AM EST Nurse Only Ancillary 65 [facility] 293 [facility], [place] [address] College, Nurse Annual Wellness Visit 65 [facility] 293 [facility], [place] [address] 11/18/2023 10:45 AM EDT [facility] [address] [place] [address] Rasheed Maldonado MD [address] [place] [address] 11/29/2023 3:00 PM EDT Office Visit Family Practice [address] [place] 293 [place] [address] Sami Stephens, DO 293 [place] [address] 12/12/2023 9:00 AM EDT Office Visit Ophthalmology, [facility] 132 [facility] [place] [address] Ganesh Perez, DO [address] [place] [address] 03/12/2024 1:10 PM EDT Office Visit Dermatology [facility] [place] [address] [place] [address] Natasha Nova PA-C [address] [place] [address] 03/13/2024 1:30 PM EDT Office Visit Cardiology, 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) documented in this encounter Results * (ABNORMAL) DIFFERENTIAL, AUTOMATED (08/30/2023 10:47 AM EST) WBC 8.48 4.00 - 10.80 K/uL 08/30/2023 10:54 AM EST [facility] [place] [facility] Neutrophils % 61.5 40.0 - 75.0 % 08/30/2023 10:54 AM EST [facility] [place] [facility] Lymphocytes % 22.1 18.0 - 42.0 % 08/30/2023 10:54 AM [facility] [place] [facility] Monocytes % 11.3(H) 1.0 - 11.0 % 08/30/2023 10:54 AM EST [facility] [place] [facility] Eosinophils % 4.5 0.0 - 6.0 % 08/30/2023 10:54 AM EST [facility] [place] [facility] Basophils % 0.6 0.0 - 2.0 % 08/30/2023 10:54 AM EST [facility] [place] [facility] Absolute Neutrophils 5.22 1.80 - 7.70 K/uL 08/30/2023 10:54 AM EST [facility] [place] [facility] Absolute Lymphocytes 1.87 1.00 - 4.80 K/ul 08/30/2023 10:54 AM EST [facility] [place] [facility] Absolute Monocytes 0.96 0.00 - 1.10 K/uL 08/30/2023 10:54 AM EST [facility] [place] [facility] Absolute Eosinophils 0.38 0.00 - 0.70 K/uL 08/30/2023 10:54 AM [facility] [place] [facility] Absolute Basophils 0.05 0.00 - 0.20 K/uL 08/30/2023 10:54 AM [facility] [place] [facility] Blood Venous blood specimen / Unknown Venipuncture / Unknown 08/30/2023 10:47 AM EST 08/30/2023 10:48 AM EST Rasheed Maldonado MD LAB BLOOD ORDERABLES [facility] [address] [place] [address] * (ABNORMAL) CBC (08/30/2023 10:47 AM EST) WBC 8.48 4.00 - 10.80 K/uL 08/30/2023 10:54 AM EST [facility] 56-02 RBC 4.41 4.50 - 5.25 M/uL 08/30/2023 10:54 AM [facility] 56-02 HGB 13.4(L) 14.0 - 16.8 g/dL 08/30/2023 10:54 AM [facility] 56-02 HCT 41.3 40.0 - 48.4 % 08/30/2023 10:54 AM [facility] 56-02 MCV 93.7 82.0 - 99.5 fL 08/30/2023 10:54 AM [facility] 56-02 MCH 30.4 27.0 - 34.0 pg 08/30/2023 10:54 AM [facility] 56-02 MCHC 32.4 32.0 - 36.0 g/dL 08/30/2023 10:54 AM [facility] 56-02 RDW 15.3 11.5 - 15.5 % 08/30/2023 10:54 AM [facility] 56-02 PLT 171 140 - 400 K/uL 08/30/2023 10:54 AM [facility] 56-02 MPV 9.2 6.6 - 11.1 fL 08/30/2023 10:54 AM [facility] 56-02 Blood Venous blood specimen / Unknown Venipuncture / Unknown 08/30/2023 10:47 AM EST 08/30/2023 10:48 AM EST Rasheed Maldonado MD LAB BLOOD ORDERABLES [facility] [address] [place] [address] documented in this encounter Visit Diagnoses Diagnosis Melanoma of face (HCC) Malignant melanoma of skin of other and unspecified parts of face 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
--- OUTSIDE RECORDS SUMMARY | 2023-09-12 16:17 | External Medical Summary | Summary of Care ---
Author Name Unknown Organization [facility] Address [address] [place] [address] Phone [phone] Care Team Providers Care Plasma Processing Centrifuge Operator Name Role Phone Guero Stephens DO Primary Care Provider [phone] Encounter Details Date Type Department Care Team (Late st Contact Info) Description 08/25/2023 Refill Family Practice [address] [place] [address] [place] [address] Guero Stephens DO [address] [place] [address] Hypokalemia Allergies Active Allergy Reactions Criticality Noted Date Comments Aspartame 08/10/2023 Pembrolizumab 07/01/2023 Penicillins 03/22/2023 Patient states had a reaction many years ago - that it was the "horse serum kind." documented as of this encounter (statuses as of 08/29/2023) Medications Medication Sig Dispensed Refills Start Date [...] mL 3 02/07/2023 Active Additional Information Patient taking differently: Tuesday, Reported on 07/01/2023 Finasteride 5 MG Oral Tablet (Proscar)Indicati ons:BPH [...] Tablet 2 07/18/2023 4 Active Saline Nasal [place] 0.65 % Nasal Solution ([place])Indication s:Nasal drainage Administer 1 [place] into nostril every 6 hours as needed for Congestion. 0 07/19/2023 Active Atorvastatin Calcium 20 MG Oral Tablet (Lipitor)Indicati ons:Dyslipidemia, goal LDL below 130 TAKE ONE TABLET BY MOUTH EVERYDAY 100 Tablet 1 08/18/2023 5 Active Potassium Chloride ER 10 MEQ Oral Capsule Extended ReleaseIndication s:Hypokalemia Take 2 Capsules by mouth in the morning. 200 Capsule 3 08/29/2023 Active Potassium Chloride Nicky ER 20 MEQ Oral Tablet Extended ReleaseIndication s:Hypokalemia Take 1 Tablet by mouth in the morning. 30 Tablet 1 08/10/2023 4 Discontinue d(Refill) documented as of this encounter (statuses as of 08/29/2023) Active Problems Problem Noted Date Diagnosed Date [...] as of this encounter (statuses as of 08/29/2023) Resolved Problems Problem Noted Date Diagnosed Date Resolved Date Body mass index (BMI) of 45. 0 to 49.9 in adult 01/25/2022 07/28/2023 Overview: Per Obesity protocol documented as of this encounter (statuses as of 08/29/2023) Immunizations Name Administration Dates Next Due COVID-19 mRNA, LNP-s, No Pre serve, 2-Dose Series (Moderna) 09/23/2020,08/29/2020 COVID-19, MRNA-LNP, 23-24, P F, 30 MCG/0.3 mL, 12 YRS AND ABOVE, IM ([facility]) 08/25/2023 COVID-19, mRNA, LNP-s, PF, B ooster, 100mcg/0.5mg (Moderna) 02/02/2022,06/08/2021 Covid-19, Mrna, Lnp-s, Pf, B ivalent, 50 Mcg, IM, 12 yrs and above (Moderna) 05/18/2022 Pneumococcal Conjugate Vacci ne, 20-valent ([id number]) 04/12/2022 Seasonal Influenza, Quadriva lent Hd (Fluzone [...] encounter Miscellaneous Notes * Telephone Encounter - Guero Stephens DO - 08/29/2023 1:23 PM ESTSigned Prescriptions: Disp Refills Potassium Chloride ER 10 MEQ Oral Capsule *200 Ca*3 Sig: Take 2 Capsules by mouth in the morning.Authorizing Provider: GUERO STEPHENS * Telephone Encounter - Jenae Garrett LPN - 08/29/2023 12:57 PM ESTPending Prescriptions: Disp Refills Potassium Chloride ER 10 MEQ Oral Capsule *200 Ca*3 Sig: Take 2 Capsules by mouth in the morning. * Telephone Encounter - Jenae Garrett LPN - 08/29/2023 12:50 PM EST Sent my Spontly message. * Telephone Encounter - Jenae Garrett LPN - 08/25/2023 2:40 PM EST Patient in today for labs, concern of potassium tablet sticking in his throat due to size. Current dose is Potassium Chloride Nicky ER 20 MEQ Oral Tablet Extended Release Would like to have two of the 10 meq's documented in this encounter Plan of Treatment Upcoming Encounters Date Type Department Care Team (Late st Contact Info) Description 08/30/2023 10:40 AM EST Laboratory [facility] [address] [place] [phone] [place], Lab [facility] 200 [facility] [place] [address] 08/30/2023 11:15 AM EST Office Visit Dermatology [facility] [address] [place] [address] Nik Vieira MD [address] [place] [address] 08/30/2023 11:45 AM EST Nurse Only Hematology/Oncology [facility] [address] [place] [address] Jordana, Nurse Hem Onc [facility] 200 [facility] [place] [address] 08/31/2023 3:15 PM EST Procedure Only Urology, [facility] 132 [facility] [place] [address] Marbin Ivan MD [address] [place] [address] [place] [address] 09/22/2023 1:15 PM EST Office Visit Hematology/Oncology [facility] [place] [address] [place] [address] Rasheed Maldonado MD [address] [place] [address] 10/18/2023 10:00 AM EST Nurse Only Ancillary 65 [facility] 293 [place] [address] College, Nurse Annual Wellness Visit [address] [address] 11/18/2023 10:45 AM EDT Office Visit [facility] [address] [place] [address] Rasheed Maldonado MD 200 [place] [address] 11/29/2023 3:00 PM EDT Office Visit Family Practice 65 [facility] 293 [place] [address] Guero Stephens, [address] [place] [address] 12/12/2023 9:00 AM EDT Office Visit Ophthalmology, [facility] 132 [facility] [address] Ganesh Perez, [address] [place] [address] 03/12/2024 1:10 PM EDT Office Visit Dermatology [facility], [place] [address] [place] [address] Natasha Nova PA-C [address] [place] [address] 03/13/2024 1:30 PM EDT Office Visit Cardiology, [facility] 132 [facility] [place] [address] Angela Peter CRNP [address] [place], [place] [address] [address] 05/17/2024 10:00 AM EDT Office [facility] [address] [place] [address] Kathrine Haile CRNP [address] [place] [address] Health Maintenance Due Date Last Done Comments [...] this encounter Medical Devices Implanted Type Area Soda Dry House Operator Device Identifier Shelf Expiration Date Model / Serial / Lot Port Implant W/8f Poly Cath - [id number] Implanted:Qty: 1 on 05/12/[address] [facility] CR BARD : PERIPHERAL VASCULAR [id number] 07/14/2024 [id number] / / [id number] documented as of this encounter Visit Diagnoses [...] Advance Directives occurred with: Patient Care Teams Plasma Processing Centrifuge Operator Relationship Specialty Start Date End Date Guero Stephens DO [address] [place] [address] PCP - General Internal Medicine 01/08/22 documented as of this encounter
--- OUTSIDE RECORDS SUMMARY | 2023-09-12 16:17 | External Medical Summary ---
Author Name Unknown Address Unknown Organization K09:[facility] [address] [place] [address] Laboratory Report Ordering Provider Test Date Status EMANI CAMPBELL 08/30/2023 10:47:46 Final Observation Date Value Abnormality Reference (Units ) Status WBC, Total 08/30/2023 10:47:46 8.48 4.00-10.8 0 (K/uL) Final RBC 08/30/2023 10:47:46 4.41 4.50-5.25 (M/uL) Final Hemoglobin 08/30/2023 10:47:46 13.4 Below low normal 14 .0-16.8 (g/dL) Final HCT 08/30/2023 10:47:46 41.3 40.0-48.4 (%) Final MCV 08/30/2023 10:47:46 93.7 82.0-99.5 (fL) Final MCH 08/30/2023 10:47:46 30.4 27.0-34.0 (pg) Final MCHC 08/30/2023 10:47:46 32.4 32.0-36.0 (g/dL) Final RDW 08/30/2023 10:47:46 15.3 11.5-15.5 (%) Final Platelets 08/30/2023 10:47:46 171 140-400 (K /uL) Final MPV 08/30/2023 10:47:46 9.2 6.6-11.1 ( fL) Final Performing Location [facility] [address] [place] [address]
--- OUTSIDE RECORDS SUMMARY | 2023-09-12 16:17 | External Medical Summary ---
Author Name Unknown Address Unknown Organization K01:[facility] [address] [place] [address] Laboratory Report Ordering Provider Test Date Status MICHELE DOBBS 08/25/2023 14:39:00 Final Observation Date Value Abnormality Reference (Units ) Status PSA 08/25/2023 14:39:00 0.44 <4.10 (ng/ mL) Final Performing Location [facility] [address] [place] [address]
--- OUTSIDE RECORDS SUMMARY | 2023-09-12 16:17 | External Medical Summary | Summary of Care ---
Author Name Unknown Organization [facility] Address [address] [place] [address] Phone [phone] Care Team Providers Care Rack Pusher Name Role Phone Sami Stephens DO Primary Care Provider [phone] Encounter Details Date Type Department Care Team (Late st Contact Info) Description 08/25/2023 2:25 PM EST Laboratory Lab [address] [address] [place], Lab [address] [place] [address] BPH with obstruction/lower urinary tract symptoms; Urinary frequency; Acute cystitis without hematuria Allergies Active Allergy Reactions Criticality Noted Date Comments Aspartame 08/10/2023 Pembrolizumab 07/01/2023 Penicillins 03/22/2023 Patient states had a reaction many years ago - that it was the "horse serum kind." documented as of this encounter (statuses as of 08/25/2023) Medications Medication Sig Dispensed Refills Start Date [...] on 07/01/2023 Finasteride 5 MG Oral Tablet (Proscar)Indication s:BPH [...] Tablet 2 07/18/2023 07/17/2024 Active Saline Nasal [place] 0.65 % Nasal Solution ([place])Indications: Nasal drainage Administer 1 [place] into nostril every 6 hours as needed for Congestion. 0 07/19/2023 Active Potassium Chloride Nicky ER 20 MEQ Oral Tablet Extended ReleaseIndications: Hypokalemia Take 1 Tablet by mouth in the morning. 30 Tablet 1 08/10/2023 Active Atorvastatin Calcium 20 MG Oral Tablet (Lipitor)Indication s:Dyslipidemia, goal LDL below 130 TAKE ONE TABLET BY MOUTH EVERYDAY 100 Tablet 1 08/18/2023 08/17/2024 Active documented as of this encounter (statuses as of 08/25/2023) Active Problems Problem Noted Date Diagnosed Date [...] as of this encounter (statuses as of 08/25/2023) Resolved Problems Problem Noted Date Diagnosed Date Resolved Date Body mass index (BMI) of 45. 0 to 49.9 in adult 01/25/2022 07/28/2023 Overview: Per Obesity protocol documented as of this encounter (statuses as of 08/25/2023) Immunizations Name Administration Dates Next Due COVID-19 mRNA, LNP-s, No Pre serve, 2-Dose Series (Moderna) 09/23/2020,08/29/2020 COVID-19, MRNA-LNP, 23-24, P F, 30 MCG/0.3 mL, 12 YRS AND ABOVE, IM ([facility]) 08/25/2023 COVID-19, mRNA, LNP-s, PF, B ooster, 100mcg/0.5mg (Moderna) 02/02/2022,06/08/2021 Covid-19, Mrna, Lnp-s, Pf, B ivalent, 50 Mcg, IM, 12 yrs and above (Moderna) 05/18/2022 Pneumococcal Conjugate Vacci ne, 20-valent ([id number]) 04/12/2022 Seasonal Influenza, Quadriva lent Hd (Fluzone [...] as of this encounter Progress Notes * Jenae Garrett LPN - 08/25/2023 2:27 PM EST LAB DRAWN AND [facility] documented in this encounter Plan of Treatment Upcoming Encounters Date Type Department Care Team (Late st Contact Info) Description 08/30/2023 10:40 AM EST Laboratory Laboratory [facility] [address] [place] [address] Jordana, Lab [facility] [address] [place] [address] 08/30/2023 11:15 AM EST Office Visit Dermatology [facility] [place] [address] [place] [address] Nik Vieira MD [address] [place] [address] 08/30/2023 11:45 AM EST Nurse Only Hematology/Oncology [facility] [place] [address] [place] [address] Jordana, Nurse Hem Onc [facility] 200 [facility] [place] [address] 08/31/2023 3:15 PM EST Procedure Only Urology, [facility] 132 [facility] [place] [address] Marbin Ivan MD 27 [facility] [address] [place] [address] 09/22/2023 1:15 PM EST [facility] [address] [place] [address] Rasheed Maldonado MD 200 [facility] [place], [place] [address] 10/18/2023 10:00 AM EST Nurse Only Ancillary 65 [facility] 293 [place] [address] College, Nurse Annual Wellness Visit [address] [place] [address] 11/18/2023 10:45 AM EDT Office Visit Hematology/Oncology [facility] 200 [facility] [place] [address] Rasheed Maldonado MD [address] [facility] [place] [address] 11/29/2023 3:00 PM EDT Office Visit Family Practice 65 [facility] 293 [place] [address] Sami Stephens, DO 293 [place] [address] 12/12/2023 9:00 AM EDT Office Visit Ophthalmology, [facility] 132 [place] [address] Ganesh Perez, DO [address] [place] [address] 03/12/2024 1:10 PM EDT Office Visit Dermatology [facility] [place] [address] [facility] [address] Natasha Nova PA-C 3[address] [facility] [place] [address] 03/13/2024 1:30 PM EDT Office Visit Cardiology, [facility] 132 [place] [address] Angela Peter CRNP [address] [place] [address] 05/17/2024 10:00 AM EDT [facility] [place] [phone] Kathrine Haile CRNP [address] [place] [address] Pending Results Name Type Priority Associated Diagnoses Date /Time PSA Lab Routine BPH with obstruction/lower urinary tract symptoms Urinary frequency Acute cystitis without hematuria 08/25/2023 2:39 PM EST Health Maintenance Due Date Last [...] this encounter Medical Devices Implanted Type Area Line Clearance Foreman Device Identifier Shelf Expiration Date Model / Serial / Lot Port Implant W/8f Poly Cath - [id number] Implanted:Qty: 1 on 05/12/2023 at [facility] CR BARD : PERIPHERAL VASCULAR [id number] 07/14/2024 [id number] / / [id number] documented as of this encounter Visit Diagnoses Diagnosis BPH with obstruction/lower urinary tract symptoms Hypertrophy of prostate with urinary obstruction and other lower urinary tract symptoms (LUTS) Urinary frequency Acute cystitis without hematuria Acute cystitis documented in this encounter Advance Directives Latest [...] Advance Directives occurred with: Patient Care Teams Rack Pusher Relationship Specialty Start Date End Date Sami Stephens DO [address] [place] [address] PCP - General Internal Medicine 01/08/22 documented as of this encounter
--- OUTSIDE RECORDS SUMMARY | 2023-09-12 16:17 | External Medical Summary | Summary of Care ---
Author Name Unknown Organization [facility] Address [address] [place] [address] Phone [phone] Care Team Providers Care Clay Dry Press Mixer Operator Name Role Phone Sami Stephens DO Primary Care Provider [phone] Reason for Visit * Reason Onset Date Comments Appointment 07/05/2023 Cardiology Encounter Details Date Type Department Care Team (Late st Contact Info) Description 07/05/2023 Telephone Family Practice [address] [place] [address] [place] [address] Sami Stephens DO [address] [place] [address] Appointment (Cardiology) Allergies Active Allergy Reactions Criticality Noted Date Comments Aspartame 08/10/2023 Pembrolizumab 07/01/2023 Penicillins 03/22/2023 Patient states had a reaction many years ago - that it was the "horse serum kind." documented as of this encounter (statuses as of 08/23/2023) Medications Medication Sig Dispensed Refills Start Date [...] mouth in the morning. 0 07/01/2023 Active documented as of this encounter (statuses as of 08/23/2023) Active Problems Problem Noted Date Diagnosed Date [...] as of this encounter (statuses as of 08/23/2023) Resolved Problems Problem Noted Date Diagnosed Date Resolved Date Body mass index (BMI) of 45. 0 to 49.9 in adult 01/25/2022 07/28/2023 Overview: Per Obesity protocol documented as of this encounter (statuses as of 08/23/2023) Immunizations Name Administration Dates Next Due COVID-19 mRNA, LNP-s, No Pre serve, 2-Dose Series (Moderna) 09/23/2020,08/29/2020 COVID-19, mRNA, LNP-s, PF, B ooster, 100mcg/0.5mg (Moderna) 02/02/2022,06/08/2021 Covid-19, Mrna, Lnp-s, Pf, B ivalent, 50 Mcg, IM, 12 yrs and above (Moderna) 05/18/2022 Pneumococcal Conjugate Vacci ne, 20-valent ([id number]) 04/12/2022 Seasonal Influenza, Quadriva lent Hd (Fluzone [...] encounter Miscellaneous Notes * Telephone Encounter - Kathi Renteria OSA - 07/05/2023 2:48 PM EST Needs a cardiology appt with Dr Sharma, as he saw him in hospital (recent discharge) The one he had he cancelled by accident Please reschedule Please call with date and time documented in this encounter Plan of Treatment Upcoming Encounters Date Type Department Care Team (Late st Contact Info) Description 08/30/2023 10:40 AM EST Laboratory Laboratory [facility] [place] [address] [place] [phone] [place], Lab [address] [facility] [place] [address] 08/30/2023 11:15 AM EST Office Visit Dermatology [facility] [place] [address] [place] [address] Nik Vieira MD [address] [place] [address] 08/30/2023 11:45 AM EST Nurse Only Hematology/Oncology [facility] [place] [address] [place] [address] Jordana, Nurse Hem Onc [facility] [address] [place] [address] 08/31/2023 3:15 PM EST Procedure Only Urology, [facility] 132 [facility] [place] [address] Marbin Ivan MD 27 [facility] [address] [place] [address] 09/22/2023 1:15 PM EST Office Visit Hematology/Oncology [facility] [address] [place] [address] Rasheed Maldonado MD [address] [place] [address] 10/18/2023 10:00 AM EST Nurse Only Ancillary 65 [facility] 293 [facility], [place] [address] College, Nurse Annual Wellness Visit [address], [place] [address] 11/18/2023 10:45 AM EDT Office Visit Hematology/Oncology [facility] [address] [place] [address] Rasheed Maldonado MD [address] [place] [address] 11/29/2023 3:00 PM EDT Office Visit Family Practice 65 [facility], [place] [address] [place] [address] Sami Stephens, DO [address] [place] [address] 12/12/2023 9:00 AM EDT Office Visit Ophthalmology, [facility] 132 [place] [address] Ganesh Perez, DO 16 [place] [address] 03/12/2024 1:10 PM EDT Office Visit Dermatology [facility] [address] [place] [address] Natasha Nova PA-C [address] [place] [address] 03/13/2024 1:30 PM EDT Office Visit Cardiology, [facility] 132 [place] [address] Angela Peter CRNP [address] [place], [place] [address] [address] 05/17/2024 10:00 AM EDT [facility] [phone] Kathrine Haile CRNP 132 [facility] [place] [address] Health Maintenance Due Date Last Done Comments [...] this encounter Medical Devices Implanted Type Area Fats And Oils Loader Device Identifier Shelf Expiration Date Model / Serial / Lot Port Implant W/8f Poly Cath - [id number] Implanted:Qty: 1 on 05/12/2023 at [facility] CR BARD : PERIPHERAL VASCULAR [id number] 07/14/2024 [id number] / / [id number] documented as of this encounter Advance Directives [...] Advance Directives occurred with: Patient Care Teams Clay Dry Press Mixer Operator Relationship Specialty Start Date End Date Sami Stephens DO 293 [place] [address] PCP - General Internal Medicine 01/08/22 documented as of this encounter
--- OUTSIDE RECORDS SUMMARY | 2023-09-12 16:17 | External Medical Summary | Summary of Care ---
Author Name Unknown Organization [facility] Address [address] [place] [address] Phone [phone] Care Team Providers Care Lead Installer Name Role Phone Sami Stephens DO Primary Care Provider [phone] Reason for Visit * Reason Onset Date Comments Medication Pre-auth 08/16/2023 trulicity Encounter Details Date Type Department Care Team (Late st Contact Info) Description 08/16/2023 Telephone Family Practice [address] [place] [address] [place] [address] Sami Stephens DO [address] [place], [place] [id number] Medication Pre-auth (trulicity) Allergies Active Allergy Reactions [...] 02/07/2023 06/25/202 4 Active Additional Information Patient taking differently: Tuesday, [...] NEEDED (URINARY FREQUENCY 90 Tablet 2 07/18/2023 Active Saline Nasal Salem 0.65 % Nasal Solution ([place])Indications :Nasal drainage Administer 1 Salem into nostril every 6 hours as needed for Congestion. 0 07/19/2023 Active Potassium Chloride Nicky ER 20 MEQ Oral Tablet Extended ReleaseIndications :Hypokalemia Take 1 Tablet by mouth in the morning. 30 Tablet 1 08/10/2023 Active Atorvastatin Calcium 20 MG Oral Tablet (Lipitor)Indicatio ns:Dyslipidemia, goal LDL below 130 TAKE ONE TABLET BY MOUTH EVERY MORNING 100 Tablet 3 10/19/2022 Discontinue d(Refill) documented as of this encounter [...] (Moderna) 05/18/2022 Pneumococcal Conjugate Vacci ne, 20-valent ([id number]) 04/12/2022 Seasonal Influenza, Quadriva lent Hd (Fluzone [...] encounter Miscellaneous Notes * Telephone Encounter - Margi Heard [facility] - 08/18/2023 5:31 PM EST Addressed in other encs. Thank you, Margi Heard, PharmD Clinical Pharmacist [facility] (CCPS) (formerly Telepharmacy) 08/18/23 5:31 PM [phone] * Telephone Encounter - Bong Sultana CPhT - 08/18/2023 9:50 AM EST Per 08/17 enc "Will need to see if patient ever diagnosed with diabetes, or else not eligible for Trulicity unless A1c > 6.5% " Please also see pt msg - questions if they should consider paying oop Thank you, Onesimo Sultana ([facility]) Patient Financial Specialist III [facility] Pharm[facility] Services (CCPS) (formerly [...] Hennessy OSA - 08/17/2023 8:17 AM EST VM left from [facility] requesting more information. Form was faxed w requested information to us to be filled out and faxed back. Also stating, the auth must be submitted by 9:00 am. * Telephone Encounter - Kathi Hennessy OSA - 08/16/2023 4:28 PM EST [facility], andrea Butcher,regarding prior auth. They are looking for information on if the patient has a diagnosis of type II diabetes [phone] Guadalupe - if so, please fax to [phone] * Telephone Encounter - Chuck Castro, [facility] - 08/16/2023 1:45 PM EST Please submit [...] upon this and route back to the [facility] if no decision is made by the insurance by 08/22, after clarifying with the pharmacy that the claim is still not processing. If PA is denied, please also route back to RPh pool. Thanks, Chuck Castro PharmD Clinical Pharmacist [facility] Pharmacy Services (CCPS) (formerly Telepharmacy) [phone] 08/16/2023, 1:45 PM * Telephone Encounter - Vidya Deras PHARM Tech - 08/16/2023 1:38 PM EST This is a new PA request. Upon review of this prior authorization request, I verified this request is appropriate. This is prescribed by a department for which [facility] is authorized to review prior authorizations This [...] note, there is nothing currently pending in [facility] for this request. Please advise how to proceed. Thanks, Vidya Deras Patient Financial Specialist III [facility] Pharmacy Services (CCPS) 08/16/2023,1:38 PM * Telephone Encounter - Antonina Arthur CPhT - 08/16/2023 12:24 PM EST Pharmacy calling to inform doctor that the patient's insurance will not pay for this medication without a completed prior authorization. Did confirm this information with the pharmacy. Pt's current insurance information is as follows: Patient name: Ralf Larson ID number: [id number] BIN number: [id number] PCN number: [id number] Group number: [id number] Subscriber name: Ralf Larson Primary or Secondary Insurance:Primary Medication: trulicity Reason for Request: [place] required Pharmacy and phone number: [facility] [phone] Rx plan and phone number: [facility] [phone] Is this a new medication for the patient? No. How did the patient obtain the medication on the lastfill? It was covered last time on this same insurance. What alternative medications does the pharmacy have in stock?: Thank you, Antonina Arthur [facility] Patient Financial Specialist [facility] Pharm[facility] Services (CCPS) (Formerly Telepharmacy) 08/16/2023, 12:25 PM documented in this encounter Plan of Treatment Upcoming Encounters Date Type Department Care Team (Late st Contact Info) Description 08/30/2023 10:40 AM EST Laboratory Laboratory [facility] [place] [address] [place] [id number] Victor, Lab [facility] 200 [facility] [place] [address] 08/30/2023 11:15 AM EST Office Visit Dermatology [facility] [place] 200 [facility] [place] [address] Nik Vieira MD [address] [place] [address] 08/30/2023 11:45 AM EST Nurse Only Hematology/Oncology [facility] [place] [address] [place] [address] Victor, Nurse Hem Onc [facility] 200 [facility] [place] [address] 08/31/2023 3:15 PM EST Procedure Only Urology, [facility] 132 [facility] [place] [address] Marbin Ivan MD 27 [facility] [address] [place] [address] 09/22/2023 1:15 PM EST Office Visit Hematology/Oncology [facility] [place] [address] [place] [address] Rasheed Maldonado MD [address] [place] [address] 10/18/2023 10:00 AM EST Nurse Only Ancillary 65 [facility] [address] [place] [address] College, Nurse Annual Wellness Visit [address] [place] [address] 11/18/2023 10:45 AM EDT [facility] [place] [address] Rasheed Maldonado MD 200 [facility] [place] [address] 11/29/2023 3:00 PM EDT Office Visit Family Practice 65 [facility] 293 [place] [address] Sami Stephens, [address] [place] [address] 12/12/2023 9:00 AM EDT Office Visit Ophthalmology, [facility] 132 [facility] [place] [address] Ganesh Perez, DO 16 [place] [address] 03/12/2024 1:10 PM EDT Office Visit Dermatology [facility] [address] [place] [address] Natasha Nova PA-C [address] [place] [address] 03/13/2024 1:30 PM EDT Office Visit Cardiology, [facility] 132 [facility] [place] [address] Angela Peter CRNP [address] [place] [address] [place] [address] 05/17/2024 10:00 AM EDT [facility] [address] [place] [address] Kathrine Haile CRNP [address] [place] [address] Health Maintenance Due Date Last Done Comments COVID-19 Vaccine (2022- season) 2023 05/18/2022, 02/02/2022, 06/08/2021, Additional history [...] this encounter Medical Devices Implanted Type Area Staff Training And Development Manager Device Identifier Shelf Expiration Date Model / Serial / Lot Port Implant W/8f Poly Cath - [id number] Implanted:Qty: 1 on 05/12/2023 at [facility] CR BARD : PERIPHERAL VASCULAR [id number] 07/14/2024 [id number] / / [id number] documented as of this encounter Visit Diagnoses [...] Advance Directives occurred with: Patient Care Teams Lead Installer Relationship Specialty Start Date End Date Sami Stephens DO 293 [facility] [place] [address] PCP - General Internal Medicine 01/08/22 documented as of this encounter
--- OUTSIDE RECORDS SUMMARY | 2023-09-12 16:17 | External Medical Summary | Summary of Care ---
Author Name Unknown Organization [facility] Address [address] [place] [address] Phone [phone] Care Team Providers Care Internal Affairs Investigator Name Role Phone Guero Stephens DO Primary Care Provider [phone] Reason for Visit * Reason Comments Medication Refill Encounter Details Date Type Department Care Team (Late st Contact Info) Description 08/17/2023 Refill Family Practice [address] [place] [address] [place] [address] Guero Stephens DO [address] [place] [address] Dyslipidemia, goal LDL below 130 Allergies Active Allergy Reactions Criticality Noted Date [...] Tablet 2 07/18/2023 4 Active Saline Nasal Latham 0.65 % Nasal Solution ([place])Indications :Nasal drainage Administer 1 [place] into nostril every 6 hours as needed for Congestion. 0 07/19/2023 Active Potassium Chloride Nicky ER 20 MEQ Oral Tablet Extended ReleaseIndications :Hypokalemia Take 1 Tablet by mouth in the morning. 30 Tablet 1 08/10/2023 Active Atorvastatin Calcium 20 MG Oral Tablet (Lipitor)Indicatio ns:Dyslipidemia, goal LDL below 130 TAKE ONE TABLET BY MOUTH EVERYDAY 100 Tablet 1 08/18/2023 5 Active Atorvastatin Calcium 20 MG Oral Tablet (Lipitor)Indicatio ns:Dyslipidemia, goal LDL below 130 TAKE ONE TABLET BY MOUTH EVERY MORNING 100 Tablet 3 10/19/2022 4 Discontinue d(Refill) documented as of this [...] (Moderna) 05/18/2022 Pneumococcal Conjugate Vacci ne, 20-valent ([id number]) 04/12/2022 Seasonal Influenza, Quadriva lent Hd (Fluzone [...] encounter Miscellaneous Notes * Telephone Encounter - Liseth Atwood [facility] - 08/18/2023 11:19 AM EST Signed Prescriptions: Disp Refills Atorvastatin Calcium 20 MG Oral Tablet (Li*100 Ta*1 Sig: TAKE ONE TABLET BY MOUTH EVERY MORNINGAuthorizing Provider: GUERO STEPHENS User: LISETH ATWOOD documented in this encounter Plan of Treatment Upcoming Encounters Date Type Department Care Team (Late st Contact Info) Description 08/30/2023 10:40 AM EST Laboratory Laboratory [facility] [place] [address] [facility] [address] [place], [place] [phone] Jordana, Lab [place] [address] [address] [facility] [place], [place] [address] 08/30/2023 11:15 AM EST Office Visit Dermatology [facility] [place] [address] [place] [address] Nik Vieira MD 200 [facility] [place] [address] 08/30/2023 11:45 AM EST Nurse Only Hematology/Oncology [facility] [place] [address] [place] [address] Jordana, Nurse Hem Onc [place] [address] [place] [place] [address] 08/31/2023 3:15 PM EST Procedure Only Urology, [facility] 132 [facility] [place] [address] Marbin Ivan MD [address] [facility] [place] [address] [place] [address] 09/22/2023 1:15 PM EST Office Visit Hematology/Oncology [facility] 200 [facility] [place], [place] [address] Rasheed Maldonado MD 200 [place] [address] 10/18/2023 10:00 AM EST Nurse Only Ancillary 65 [facility] 293 [place] [address] College, Nurse Annual Wellness Visit [address] [address] 11/18/2023 10:45 AM EDT Office Visit Hematology/Oncology [facility] 200 [facility] [place], [place] [address] Rasheed Maldonado MD 200 [facility] [place] [address] 11/29/2023 3:00 PM EDT Office Visit Family Practice 65 [facility] 293 [place] [address] Guero Stephens, DO 293 [place] [address] 12/12/2023 9:00 AM EDT Office Visit Ophthalmology, [facility] 132 [facility] [place] [address] Ganesh Perez, DO 16 [place] [address] 03/12/2024 1:10 PM EDT Office Visit Dermatology [facility] [address] [place] [address] Natasha Nova PA-C 4517 [facility] [place] [address] 03/13/2024 1:30 PM EDT Office Visit Cardiology, [facility] 132 [facility] [place] [address] Angela Peter CRNP [address] [place] [phone] 05/17/2024 10:00 AM EDT Office Visit Sleep Disorders Ctr [facility] 132 [facility] [place] [phone] Kathrine Haile CRNP 132 [facility] [place] [address] Health Maintenance Due Date Last Done Comments COVID-19 Vaccine ( season) 2023 05/18/2022, 02/02/2022, 06/08/2021, Additional history [...] this encounter Medical Devices Implanted Type Area Tangled Yarn Spool Straightener Device Identifier Shelf Expiration Date Model / Serial / Lot Port Implant W/8f Poly Cath - [id number] Implanted:Qty: 1 on 05/12/2023 at [facility] CR BARD : PERIPHERAL VASCULAR [id number] 07/14/2024 [id number] / / [id number] documented as of this encounter Visit Diagnoses Diagnosis Dyslipidemia, goal LDL below 130 Other and unspecified hyperlipidemia documented in this encounter Advance Directives Latest [...] Advance Directives occurred with: Patient Care Teams Internal Affairs Investigator Relationship Specialty Start Date End Date Guero Stephens DO [address] [place] [facility] [place] [address] PCP - General Internal Medicine 01/08/22 documented as of this encounter
--- OUTSIDE RECORDS SUMMARY | 2023-09-12 16:17 | External Medical Summary | Summary of Care ---
Author Name Unknown Organization [facility] Address [address] [place] [address] Phone [phone] Care Team Providers Care Manager Pediatric Name Role Phone Sami Stephens DO Primary Care Provider [phone] Reason for Visit * Reason Onset Date Comments Medication Pre-auth 08/16/2023 trulicity Encounter Details Date Type Department Care Team (Late st Contact Info) Description 08/16/2023 Telephone Family Practice [address] [place] [address] [place] [address] Sami Stephens DO [address] [place], [place] [phone] Medication Pre-auth (trulicity) Allergies Active Allergy Reactions [...] Tablet 2 07/18/2023 07/17/2024 Active Saline Nasal Crosby 0.65 % Nasal Solution ([place])Indications: Nasal drainage Administer 1 [place] into nostril every 6 hours as needed [...] (Moderna) 05/18/2022 Pneumococcal Conjugate Vacci ne, 20-valent ([id number]) 04/12/2022 Seasonal Influenza, Quadriva lent Hd (Fluzone [...] encounter Miscellaneous Notes * Telephone Encounter - Bnog Sultana CPhT - 08/18/2023 9:50 AM EST Per 08/17 enc "Will need to see if patient ever diagnosed with diabetes, or else not eligible for Trulicity unless A1c > 6.5% " Please also see pt msg - questions if they should consider paying oop Thank you, Onesimo Sultana ([facility]) Blender Operator III [facility]ized Clin[facility] Pharmacy Services (CCPS) (formerly [...] 08/17/2023 8:17 AM EST THELMA left from [facility] requesting more information. Form was faxed w requested information to us to be filled out and faxed back. Also stating, the auth must be submitted by 9:00 am. * Telephone Encounter - Kathi Hennessy OSA - 08/16/2023 4:28 PM EST [facility] prior auth. They are looking for information on if the patient has a diagnosis of type II diabetes [phone] Guadalupe - if so, please fax to [phone] * [facility] - [facility] 1:45 PM EST [...] upon this and route back to the [facility] pool if no decision is made by the insurance by 08/22, after clarifying with the pharmacy that the claim is still not processing. If PA is denied, please also route back to [facility] pool. Thanks, Chuck Castro, Ines Clinical Pharmacist Centralized Clinical Pharmacy Services (CCPS) (formerly Telepharmacy) [phone] 08/16/2023, 1:45 PM * Telephone Encounter - [...] advise how to proceed. Thanks, Vidya Deras Blender Operator III [facility] (CCPS) 08/16/2023,1:38 PM * Telephone Encounter - Antonina Arthur CPhT - 08/16/2023 12:24 PM EST Pharmacy calling to inform doctor that the patient's insurance will not pay for this medication without a completed prior authorization. Did confirm this information with the pharmacy. Pt's current insurance information is as follows: Patient name: Ralf Larson ID number: [id number] BIN number: [id number] PCN number: [id number] Group number: [id number] Subscriber name: Ralf Larson Primary or Secondary Insurance:Primary Medication: trulicity Reason for Request: [place] required Pharmacy and phone number: [facility] [phone] Rx plan and phone number: [facility] [phone] Is this a new medication for the patient? No. How did the patient obtain the medication on the lastfill? It was covered last time on this same insurance. What alternative medications does the pharmacy have in stock?: Thank you, Antonina Arthur CPhT Blender Operator [facility] (CCPS) (Formerly Telepharmacy) 08/16/2023, 12:25 PM documented in this encounter Plan of Treatment Upcoming Encounters Date Type Department Care Team (Late st Contact Info) Description 08/30/2023 10:40 AM EST Laboratory Laboratory [place] [place] [address] [place], [place] [address] [place], Lab [place] [place], [place] [address] 08/30/2023 11:15 AM EST Office Visit Dermatology [facility] [address] [place], [place] [address] Nik Vieira MD [address] [place], [place] [address] 08/30/2023 11:45 AM EST Nurse Only Hematology/Oncology [facility] [address] [place], [place] [address] Jordana, Nurse Hem Onc [place] [address] [place] [address] 08/31/2023 3:15 PM EST Procedure Only Urology, [facility] 132 [facility] [address] Marbin Ivan MD 27 [facility] [address] [place] [address] 09/22/2023 1:15 PM EST Office Visit Hematology/Oncology [facility] [address] [place], [place] [address] Rasheed Maldonado MD [address] [place] [address] 10/18/2023 10:00 AM EST Nurse Only Ancillary 65 [facility] 293 [place] [address] College, Nurse Annual Wellness Visit 65 [facility] 293 [facility], [place] [address] 11/18/2023 10:45 AM EDT Office Visit Hematology/Oncology [facility] [address] [place], [place] [address] Rasheed Maldonado MD [address] [place] [address] 11/29/2023 3:00 PM EDT Office Visit Family Practice [address] [place] 293 [place] [address] Sami Stephens, DO [address] [place] [address] 12/12/2023 9:00 AM EDT Office Visit Ophthalmology, [facility] 132 [place] [address] Ganesh Perez, DO 16 [place] [address] 03/12/2024 1:10 PM EDT Office Visit Dermatology [facility] [address] [place] [address] Natasha Nova PA-C [address] [place] [address] 03/13/2024 1:30 PM EDT Office Visit Cardiology, [facility] 132 [place] [address] Angela Peter CRNP [address] [place] [address] [place] [phone] 05/17/2024 10:00 AM EDT Office Visit Sleep Disorders Ctr [facility] 132 [place] [phone] Kathrine Haile CRNP [address] [facility] [place] [address] Health Maintenance Due Date Last Done Comments [...] this encounter Medical Devices Implanted Type Area Corporate Accounting Manager Device Identifier Shelf Expiration Date Model / Serial / Lot Port Implant W/8f Poly Cath - [id number] Implanted:Qty: 1 on 05/12/2023 at [facility] CR BARD : PERIPHERAL VASCULAR [id number] 07/14/2024 [id number] / / [id number] documented as of this encounter Visit Diagnoses [...] Advance Directives occurred with: Patient Care Teams Manager Pediatric Relationship Specialty Start Date End Date Sami Stephens DO [address] [place] [address] PCP - General Internal Medicine 01/08/22 documented as of this encounter
--- OUTSIDE RECORDS SUMMARY | 2023-09-12 16:17 | External Medical Summary | Summary of Care ---
Author Name Unknown Organization [facility] Address [address] [place] [address] Phone [phone] Care Team Providers Care Employment Programs Analyst Name Role Phone Sami Stephens DO Primary Care Provider [phone] Reason for Visit * Reason Onset Date Comments Test Results 08/17/2023 Encounter Details Date Type Department Care Team (Late st Contact Info) Description 08/17/2023 Telephone Family Practice 65 [facility] [place] [address] [place] [address] Sami Stephens DO 293 [place] [address] Test Results Allergies Active Allergy Reactions Criticality Noted Date [...] Tablet 2 07/18/2023 07/17/2024 Active Saline Nasal [place] 0.65 % Nasal Solution (Mchenry)Indications: Nasal drainage Administer 1 [place] into nostril every 6 hours as needed [...] (Moderna) 05/18/2022 Pneumococcal Conjugate Vacci ne, 20-valent ([id number]) 04/12/2022 Seasonal Influenza, Quadriva lent Hd (Fluzone [...] Telephone Encounter - Jenae Garrett LPN - 08/18/2023 1:34 PM EST Patient is aware and will comply. Thank you * Telephone Encounter - Sami Stephens DO - 08/18/2023 7:58 AM EST Repeat Hgba1c in 10/2023 Monitor weight * Telephone Encounter - Jenae Garrett LPN - 08/17/2023 3:52 PM EST Patient in for labs today, states that he is concerned about not having trulicity. Currently, not covered by [facility] insurance. Patient said that cardio was happy with him being on trulicity. Patient can pay out of pocket if needed--per patient. Also with not taking would this have any effect on the cancer? How long would he have to wait to have hgba1c done. documented in this encounter Plan of Treatment Upcoming Encounters Date Type Department Care Team (Late st Contact Info) Description 08/30/2023 10:40 AM EST Laboratory Laboratory [facility] Jordana [place] 200 [facility] [place] [address] Jordana, Lab [facility] [address] [place] [address] 08/30/2023 11:15 AM EST Office Visit Dermatology [facility] Jordana [place] [address] [place] [place] [address] Nik Vieira MD 200 [facility] [place] [address] 08/30/2023 11:45 AM EST Nurse Only Hematology/Oncology [facility] Jordana [place] [address] [place] [address] Jordana, Nurse Hem Onc [address] [place], [place] [address] 08/31/2023 3:15 PM EST Procedure Only Urology, [facility] 132 [place] [address] Marbin Ivan MD [address] [facility] [address] [place] [address] 09/22/2023 1:15 PM EST Office Visit Hematology/Oncology [facility] [address] [place] [address] Rasheed Maldonado MD 200 [facility] [place] [address] 10/18/2023 10:00 AM EST Nurse Only Ancillary 65 [facility] 293 [place] [address] College, Nurse Annual Wellness Visit [address] [address] 11/18/2023 10:45 AM EDT Office Visit Hematology/Oncology [facility] 200 [facility] [place], [place] [address] Rasheed Maldonado MD 200 [facility] [place] [address] 11/29/2023 3:00 PM EDT Office Visit Family Practice 65 [facility] 293 [place] [address] Sami Stephens, DO 293 [place] [address] 12/12/2023 9:00 AM EDT Office Visit Ophthalmology, [facility] 132 [place] [address] Ganesh Perez, DO 16 [place] [address] 03/12/2024 1:10 PM EDT Office Visit Dermatology [facility] [place] [address] [place] [address] Natasha Nova PA-C [address] [facility] [address] 03/13/2024 1:30 PM EDT Office Visit Cardiology, [facility] 132 [facility] [address] Angela Peter CRNP 400 [facility] [place] [address] 05/17/2024 10:00 AM EDT Office Visit Sleep Disorders [facility] 132 [facility] [place] [phone] Kathrine Haile CRNP 132 [facility] [address] Health Maintenance Due Date Last Done Comments [...] this encounter Medical Devices Implanted Type Area Fried Cake Maker Device Identifier Shelf Expiration Date Model / Serial / Lot Port Implant W/8f Poly Cath - [id number] Implanted:Qty: 1 on 05/12/2023 at [facility] BARD : PERIPHERAL VASCULAR [id number] 07/14/2024 [id number] / / [id number] documented as of this encounter Advance Directives [...] Advance Directives occurred with: Patient Care Teams Employment Programs Analyst Relationship Specialty Start Date End Date Sami Stephens DO [address] [facility] [place] [address] PCP - General Internal Medicine 01/08/22 documented as of this encounter
--- OUTSIDE RECORDS SUMMARY | 2023-09-12 16:17 | External Medical Summary | Summary of Care ---
Author Name Unknown Organization [facility] Address [address] [place] [address] Phone [phone] Care Team Providers Care Guide Dog Instructor Name Role Phone Sami Stephens DO Primary Care Provider [phone] Reason for Visit * Reason Onset Date Comments Test Results Lab 08/30/2023 Encounter Details Date Type Department Care Team (Late st Contact Info) Description 08/30/2023 Telephone Hematology/Oncology Treatment, [place] [address] [place] [address] Sami Stephens DO [address] [place] [address] Test Results Lab Allergies Active Allergy Reactions [...] Tablet 2 07/18/2023 07/17/2024 Active Saline Nasal Bloom[place] 0.65 % Nasal Solution (Parmer)Indications :Nasal drainage Administer 1 [place] into nostril every 6 hours as needed [...] MCG/0.3 mL, 12 YRS AND ABOVE, IM (Wasatch VaporStix-Comirnaty) 08/25/2023 COVID-19, mRNA, LNP-s, PF, B ooster, 100mcg/0.5mg (Moderna) 02/02/2022,06/08/2021 Covid-19, Mrna, Lnp-s, Pf, B ivalent, 50 Mcg, IM, 12 yrs and above (Moderna) 05/18/2022 Pneumococcal Conjugate Vacci ne, 20-valent ([id number]) 04/12/2022 Seasonal Influenza, Quadriva lent Hd (Fluzone [...] Procedure Only Urology, [facility] 132 [facility] [address] Marbin Ivan MD [address] [place] [address] 09/22/2023 12:40 PM EST Laboratory Laboratory [facility] [address] [place] [address] [facility] Lab [facility] 200 [facility] [place] [address] 09/22/2023 1:15 PM EST Office Visit Hematology/Oncology [facility] [address] [place] [address] Rasheed Maldonado MD 200 [facility] [place] [address] 10/18/2023 10:00 AM EST Nurse Only Ancillary [address] [place] [address] 293 [facility] [address] [place], Nurse Annual Wellness Visit 65 [facility] 293 [place] [address] 11/18/2023 10:45 AM EDT Office Visit Hematology/Oncology [facility] 200 [facility] [place] [address] Rasheed Maldonado MD 200 [place] [address] 11/29/2023 3:00 PM EDT Office Visit Family Practice 65 [facility] 293 [place] [address] Sami Stephens, DO 293 [facility] [place] [address] 12/12/2023 9:00 AM EDT Office Visit Ophthalmology, [facility] 132 [place] [address] Ganesh Perez, DO 16 [place] [address] 12/29/2023 10:00 AM EDT Office Visit Dermatology [facility] 200 [facility] [place], [place] [address] Nik Vieira MD 200 [facility], [place] [address] 03/12/2024 1:10 PM EDT Office Visit Dermatology [facility] [place] 3228 [facility] [address] Natasha Nova PA-C 3228 [facility] [place] [address] 03/13/2024 1:30 PM EDT Office Visit Cardiology, [facility] 132 [place] [address] Angela Peter CRNP [address] [place] [address] [place] [address] 05/17/2024 10:00 AM EDT [facility] [address] [place] [phone] Kathrine Haile, OLEG [address] [place] [address] Health Maintenance Due Date Last Done Comments [...] this encounter Medical Devices Implanted Type Area Family Medicine Resident Device Identifier Shelf Expiration Date Model / Serial / Lot Port Implant W/8f Poly Cath - [id number] Implanted:Qty: 1 on 05/12/2023 at [facility] BARD : PERIPHERAL VASCULAR [id number] 07/14/2024 [id number] / / [id number] documented as of this encounter Advance Directives [...] Advance Directives occurred with: Patient Care Teams Guide Dog Instructor Relationship Specialty Start Date End Date Sami Stephens DO 293 [place] [address] PCP - General Internal Medicine 01/08/22 documented as of this encounter
--- OUTSIDE RECORDS SUMMARY | 2023-09-12 16:17 | External Medical Summary ---
Author Name Unknown Address Unknown Organization K09:[facility] [place] [address] Laboratory Report Ordering Provider Test Date Status EMANI CAMPBELL 08/30/2023 10:47:46 Final Observation Date Value Abnormality Reference (Units ) Status SYNC LEUKOCYTES IN BLOOD BY AUTOMATED COUNT 08/30/2023 10:47:46 8.48 4.00-10.80 (K/uL) Final Segs 08/30/2023 10:47:46 61.5 40.0-75.0 (%) Final Lymphs % 08/30/2023 10:47:46 22.1 18.0-42.0 (%) Final Monos 08/30/2023 10:47:46 11.3 Above high normal 1.0-11.0 (%) Final Eosinophils 08/30/2023 10:47:46 4.5 0.0-6.0 (%) Final Basos 08/30/2023 10:47:46 0.6 0.0-2.0 (%) Final Absolute Segs 08/30/2023 10:47:46 5.22 1.80-7.70 (K/uL) Final Lymphs, absolute 08/30/2023 10:47:46 1.87 1.00-4.80 (K/ul) Final Monos, Abs 08/30/2023 10:47:46 0.96 0.00-1.10 (K/uL) Final Eos, Abs 08/30/2023 10:47:46 0.38 0.00-0.70 (K/uL) Final Basos, Abs 08/30/2023 10:47:46 0.05 0.00-0.20 (K/uL) Final Performing Location [facility] [place] [address]
--- OUTSIDE RECORDS SUMMARY | 2023-09-12 16:17 | External Medical Summary ---
Author Name Unknown Address Unknown Organization K01:[facility] [place] [address] [facility] [address] [facility] [address] Laboratory Report Ordering Provider Test Date Status EMANI CAMPBELL 08/30/2023 10:47:46 Final Observation Date Value Abnormality Reference (Units ) Status TSH 08/30/2023 10:47:46 3.42 0.27-4.20 (uIU/mL) Final Performing Location [facility] [place] - [address] [facility] [address]
--- OUTSIDE RECORDS SUMMARY | 2023-09-12 16:17 | External Medical Summary | Summary of Care ---
Author Name Unknown Organization [facility] Address [address] [place] [address] Phone [phone] Care Team Providers Care Rabbit Breeder Name Role Phone Sami Stephens DO Primary Care Provider [phone] Encounter Details Date Type Department Care Team (Late st Contact Info) Description 08/25/2023 2:45 PM EST Immunization Ancillary 65 [facility] 293 [place] [address] College, Covid19 Vaccine [address] [address] Arrived Allergies Active Allergy Reactions Criticality Noted [...] Tablet 2 07/18/2023 07/17/2024 Active Saline Nasal [place] 0.65 % Nasal Solution (Kila)Indications: Nasal drainage Administer 1 [place] into nostril every 6 hours as needed [...] MCG/0.3 mL, 12 YRS AND ABOVE, IM (6sicuro.it-[facility]) 08/25/2023 COVID-19, mRNA, LNP-s, PF, B ooster, 100mcg/0.5mg (Moderna) 02/02/2022,06/08/2021 Covid-19, Mrna, Lnp-s, Pf, B ivalent, 50 Mcg, IM, 12 yrs and above (Moderna) 05/18/2022 Pneumococcal Conjugate Vacci ne, 20-valent ([id number]) 04/12/2022 Seasonal Influenza, Quadriva lent Hd (Fluzone [...] Description 08/30/2023 10:40 AM EST Laboratory Laboratory [facility] [address] [place] [address] [facility] Lab [facility] [address] [facility] [place] [address] 08/30/2023 11:15 AM EST Office Visit Dermatology [facility] [place] [address] [place] [address] Nik Vieira MD [address] [place] [address] 08/30/2023 11:45 AM EST Nurse Only Hematology/Oncology [facility] [place] [address] [place] [address] Jordana, Nurse Hem Onc [address] [place] [address] 08/31/2023 3:15 PM EST Procedure Only Urology, [facility] 132 [facility] [place] [address] Marbin Ivan MD [address] [place] [address] [place] [address] 09/22/2023 1:15 PM EST Office Visit Hematology/Oncology [facility] [place] [address] [place] [address] Rasheed Maldonado MD [address] [place] [address] 10/18/2023 10:00 AM EST Nurse Only Ancillary [address] [place] [address] 293 [place] [address] College, Nurse Annual Wellness Visit 65 [facility] 293 [place] [address] 11/18/2023 10:45 AM EDT Office Visit [facility]ematology[facility]On[facility] [address] [place] [address] Rasheed Maldonado MD [address] [place], [place] [address] 11/29/2023 3:00 PM EDT Office Visit Family Practice 65 [facility] 293 [place] [address] Sami Stephens, DO 293 [facility] [place] [address] 12/12/2023 9:00 AM EDT Office Visit Ophthalmology, [facility] 132 [facility] [place] [address] Ganesh Perez, DO 16 [place] [address] 03/12/2024 1:10 PM EDT Office Visit Dermatology [facility] 3228 [place] [address] Natasha Nova PA-C 3228 [place] [address] 03/13/2024 1:30 PM EDT Office Visit Cardiology, [facility] 132 [facility] [place] [address] Angela Peter CRNP [address] [place] [address] [place] [phone] 05/17/2024 10:00 AM EDT Office Visit Sleep Disorders Ctr [facility] 132 [facility] [place] [address] Kathrine Haile CRNP [address] [place] [address] Health Maintenance Due Date Last Done Comments [...] this encounter Medical Devices Implanted Type Area Cook Fast Food Device Identifier Shelf Expiration Date Model / Serial / Lot Port Implant W/8f Poly Cath - [id number] Implanted:Qty: 1 on 05/12/2023 at [facility] BARD : PERIPHERAL VASCULAR [id number] 07/14/2024 [id number] / / [id number] documented as of this encounter Advance Directives [...] Advance Directives occurred with: Patient Care Teams Rabbit Breeder Relationship Specialty Start Date End Date Sami Stephens DO 293 [place] [address] PCP - General Internal Medicine 01/08/22 documented as of this encounter
--- OUTSIDE RECORDS SUMMARY | 2023-09-12 16:18 | External Medical Summary | Summary of Care ---
Author Name Unknown Organization [facility] Address [address] [place] [address] Phone [phone] Care Team Providers Care Lpn Cma Name Role Phone Sami Stephens DO Primary Care Provider [phone] Reason for Visit * Reason Onset Date Comments Medication Pre-auth 08/16/2023 trulicity Encounter Details Date Type Department Care Team (Late st Contact Info) Description 08/16/2023 Telephone Family Practice 65 [facility], [place] 293 [place] [address] Sami Stephens DO 293 [place], [place] [id number] Medication Pre-auth (trulicity) Allergies Active Allergy Reactions Criticality Noted Date Comments Aspartame 08/10/2023 Pembrolizumab 07/01/2023 Penicillins 03/22/2023 Patient states had a reaction many years ago - that it was the "horse serum kind." documented as of this encounter (statuses as of 08/17/2023) Medications Medication Sig Dispensed Refills Start Date [...] Tablet 2 07/18/2023 07/17/2024 Active Saline Nasal [place]hee 0.65 % Nasal Solution (Pickaway)Indications: Nasal drainage Administer 1 [place] into nostril every 6 hours as needed for Congestion. 0 07/19/2023 Active Potassium Chloride Nicky ER 20 MEQ Oral Tablet Extended ReleaseIndications: Hypokalemia Take 1 Tablet by mouth in the morning. 30 Tablet 1 08/10/2023 Active documented as of this encounter (statuses as of 08/17/2023) Active Problems Problem Noted Date Diagnosed Date [...] as of this encounter (statuses as of 08/17/2023) Resolved Problems Problem Noted Date Diagnosed Date Resolved Date Body mass index (BMI) of 45. 0 to 49.9 in adult 01/25/2022 07/28/2023 Overview: Per Obesity protocol documented as of this encounter (statuses as of 08/17/2023) Immunizations Name Administration Dates Next Due COVID-19 mRNA, LNP-s, No Pre serve, 2-Dose Series (Moderna) 09/23/2020,08/29/2020 COVID-19, mRNA, LNP-s, PF, B ooster, 100mcg/0.5mg (Moderna) 02/02/2022,06/08/2021 Covid-19, Mrna, Lnp-s, Pf, B ivalent, 50 Mcg, IM, 12 yrs and above (Moderna) 05/18/2022 Pneumococcal Conjugate Vacci ne, 20-valent ([id number]) 04/12/2022 Seasonal Influenza, Quadriva lent Hd (Fluzone [...] you * Telephone Encounter - Tracy Hsieh [facility] - 08/17/2023 8:29 AM EST Faxed form [...] Hennessy OSA - 08/17/2023 8:17 AM EST left from [facility] requesting more information. Form was faxed w requested information to us to be filled out and faxed back. Also stating, the auth must be submitted by 9:00 am. * Telephone Encounter - Kathi Hennessy OSA - 08/16/2023 4:28 PM EST Guadalupe Tinajero, called,regarding prior auth. They are looking for information on if the patient has a diagnosis of type II diabetes [phone] Guadalupe - if so, please fax to [phone] * Telephone Encounter - Chuck Castro, [facility] - 08/16/2023 1:45 PM EST Please submit [...] this and route back to the [facility] pool if no decision is made by the insurance by 08/22, after clarifying with the pharmacy that the claim is still not processing. If PA is denied, please also route back to [facility] pool. Thanks, Chuck Castro PharmD Clinical Pharmacist [facility] ([facility]) (formerly Telepharmacy) [phone] 08/16/2023, 1:45 PM * Telephone Encounter - Vidya Deras PHARM Tech - 08/16/2023 1:38 PM EST This is a new [place] request. Upon review of this prior authorization request, I verified this request is appropriate. This is prescribed by a department for which [facility] is authorized to review prior authorizations This [...] note, there is nothing currently pending in [facility] for this request. Please advise how to proceed. Thanks, Vidya Deras Computer Numerical Control Machinist III [facility] ([facility]) 08/16/2023,1:38 PM * Telephone Encounter - Antonina Arthur CPhT - 08/16/2023 12:24 PM EST Pharmacy calling to inform doctor that the patient's insurance will not pay for this medication without a completed prior authorization. Did confirm this information with the pharmacy. Pt's current insurance information is as follows: Patient name: Ralf Larson ID number: [id number] BIN number: [id number] PCN number: [id number] Group number: [id number] Subscriber name: Ralf Larson Primary or Secondary Insurance:Primary Medication: trulicity Reason for Request: [place] required Pharmacy and phone number: [facility] [phone] Rx plan and phone number: [facility] [phone] Is this a new medication for the patient? No. How did the patient obtain the medication on the lastfill? It was covered last time on this same insurance. What alternative medications does the pharmacy have in stock?: Thank you, Antonina Arthur CPhT Computer Numerical Control Machinist [facility] ([facility]) (Formerly Telepharmacy) 08/16/2023, 12:25 PM documented in this encounter Plan of Treatment Upcoming Encounters Date Type Department Care Team (Late st Contact Info) Description 08/30/2023 10:40 AM EST Laboratory Laboratory [facility] [address] [place] [address] Pia Silveira [place] [address] [address] [facility] [place] [address] 08/30/2023 11:15 AM EST Office Visit Dermatology [facility] J[place] [address] [place] [place] [address] Nik Vieira MD 200 [facility] [place] [address] 08/30/2023 11:45 AM EST Nurse Only Hematology/Oncology [facility] [address] [place], [place] [address] [place], Nurse Hem Onc [address] [place], [place] [address] 08/31/2023 3:15 PM EST Procedure Only Urology, [facility] 132 [facility] [place] [address] Marbin Ivan MD [address] [place] [address] [place] [address] 09/22/2023 1:15 PM EST Office Visit Hematology/Oncology [facility] [address] [place] [address] Rasheed Maldonado MD [address] [place] [address] 10/18/2023 10:00 AM EST Nurse Only Ancillary 65 [facility] 293 [facility], [place] [address] College, Nurse Annual Wellness Visit [address], [place] [address] 11/18/2023 10:45 AM EDT Office Visit Hematology/Oncology [facility] [address] [place], [place] [address] Rasheed Maldonado MD [address] [place], [place] [address] 11/29/2023 3:00 PM EDT Office Visit Family Practice 65 [facility] 293 [place] [address] Sami Stephens, DO 293 [facility], [place] [address] 12/12/2023 9:00 AM EDT Office Visit Ophthalmology, [facility] 132 [facility] [place] [address] Ganesh Perez, DO 16 [place] [address] 03/12/2024 1:10 PM EDT Office Visit Dermatology [facility] [place] [address] [place] [address] Natasha Nova PA-C 3228 [place] [address] 03/13/2024 1:30 PM EDT Office Visit Cardiology, [facility] 132 [facility] [place] [address] Angela Peter CRNP 400 [facility] [place] [phone] 05/17/2024 10:00 AM EDT Office Visit Sleep Disorders Ctr [facility] 132 [facility] [place] [phone] Kathrine Haile CRNP 132 [facility] [place] [address] Health Maintenance Due Date Last Done Comments COVID-19 Vaccine ( season) 2023 05/18/2022, 02/02/2022, 06/08/2021, Additional history exists HbA1c 05/27/2024 05/27/2023, 01/14, 10/18/2022, Additional history exists Depression Screening 08/10/2024 08/10/2023 GFR 08/10/2024 08/10/2023, 12/12/2022, 07/13/2023, Additional history exists Albumin/Creatinine Ratio 01/08/2025 01/08/2022, [...] this encounter Medical Devices Implanted Type Area Forge Shop Machine Repairer Device Identifier Shelf Expiration Date Model / Serial / Lot Port Implant W/8f Poly Cath - [id number] Implanted:Qty: 1 on 05/12/2023 at [facility] BARD : PERIPHERAL VASCULAR [id number] 07/14/2024 [id number] / / [id number] documented as of this encounter Visit Diagnoses [...] Advance Directives occurred with: Patient Care Teams Lpn Cma Relationship Specialty Start Date End Date Sami Stephens DO [address] [place] [address] PCP - General Internal Medicine 01/08/22 documented as of this encounter
--- OUTSIDE RECORDS SUMMARY | 2023-09-12 16:18 | External Medical Summary ---
Author Name Unknown Address Unknown Organization K01:[facility] [place] - [address] [place] [address] Laboratory Report Ordering Provider Test Date Status EMANI CAMPBELL 08/10/2023 12:22:39 Final Observation Date Value Abnormality Reference (Units ) Status TSH 08/10/2023 12:22:39 3.20 0.27-4.20 (uIU/mL) Final Performing Location [facility] [place] - [address] [place] [address]
--- OUTSIDE RECORDS SUMMARY | 2023-09-12 16:18 | External Medical Summary | Summary of Care ---
Author Name Unknown Organization [facility] Address [address] [place] [address] Phone [phone] Care Team Providers Care Therapy Assistant Name Role Phone Sami Stephens DO Primary Care Provider [phone] Reason for Referral * Evaluate & Treat - Unlimited Visits (Within 10 days (routine)) - Authorized Specialty Diagnoses / Procedures Referred By Katie garber Referred To Contact Optometry Diagnoses Acquired ptosis of eyelid, left Sami Stephens DO [address] [place] [address] Referral ID Status Reason Start Date Expiration Date Visits Requested Visits Authorized [id number] Authorized Specialty Services Required 3 [phone] Question Answer Referral Priority Within 10 days (routine) Where should this appointment be scheduled? 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); Acquired ptosis of eyelid, left; Gouty arthropathy; Dyslipidemia, goal LDL below 70; BPH with obstruction/lower urinary tract symptoms; HTN, goal below 150/90; SANDRINE on CPAP; Prediabetes; SCOTT (generalized anxiety disorder); Moderate to severe aortic stenosis; Drug-induced pneumonitis Allergies Active Allergy Reactions Criticality Noted Date Comments Pembrolizumab 07/01/2023 Penicillins 03/22/2023 Patient states had a reaction many years ago - that it was the "horse serum kind." documented as of this encounter (statuses as of 08/01/2023) Medications Medication Sig Dispensed Refills Start Date [...] 3 02/07/2023 4 Active Additional Information Patient taking differently: Tuesday, Reported on 07/01/2023 Atorvastatin Calcium 20 MG Oral Tablet (Lipitor)Indicatio ns:Dyslipidemia, goal LDL below 130 TAKE ONE TABLET BY MOUTH EVERY MORNING 100 Tablet 3 10/19/2022 4 Active Finasteride 5 MG Oral Tablet (Proscar)Indicatio ns:BPH [...] mouth in the morning. 0 07/01/2023 Active Potassium Chloride ER 10 MEQ Oral Capsule Extended ReleaseIndications :Hypokalemia Take 1 Capsule by mouth in the morning. 30 Capsule 5 07/01/2023 Active Solifenacin Succinate 5 MG Oral Tablet (VESIcare) TAKE ONE TABLET BY MOUTH EVERY DAY NEEDED (URINARY FREQUENCY 90 Tablet 2 07/18/2023 4 Active Saline Nasal Fowler 0.65 % Nasal Solution ([place])Indications :Nasal drainage Administer 1 Fowler into nostril every 6 hours as needed for Congestion. 0 07/19/2023 Active Sulfamethoxazole-T rimethoprim 800-160 MG Oral Tablet (Bactrim DS)Indications:Met a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) Take 1 Tablet by mouth once a day on Tuesday, Tuesday, and Tuesday only. 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 Taper per Dr Maldonado based on lab results. 14 Tablet 0 07/13/2023 Discontinue d(Medicatio n List Clean Up) documented as of this encounter (statuses as of 08/01/2023) Active Problems Problem Noted Date Diagnosed Date [...] as of this encounter (statuses as of 08/01/2023) Resolved Problems Problem Noted Date Diagnosed Date Resolved Date Body mass index (BMI) of 45. 0 to 49.9 in adult 01/25/2022 07/28/2023 Overview: Per Obesity protocol documented as of this encounter (statuses as of 08/01/2023) Immunizations Name Administration Dates Next Due COVID-19 mRNA, LNP-s, No Pre serve, 2-Dose Series (Moderna) 09/23/2020,08/29/2020 COVID-19, mRNA, LNP-s, PF, B ooster, 100mcg/0.5mg (Moderna) 02/02/2022,06/08/2021 Covid-19, Mrna, Lnp-s, Pf, B ivalent, 50 Mcg, IM, 12 yrs and above (Moderna) 05/18/2022 Pneumococcal Conjugate Vacci ne, 20-valent ([id number]) 04/12/2022 Seasonal Influenza, Quadriva lent Hd (Fluzone Hd) 04/19/2023,04/28/2022,07/01/2021 TDAP (age 10 and older)(Boostrix) 04/12/2022 Zoster Vaccine Recombinant (Shingrix) 08/30/2018 ,05/11/2018 documented as of this encounter Social History Tobacco Use Types Packs/Day Years Used Date Smoking Tobacco: Never Passive Smoke Exposure: Never Smokeless Tobacco: Never Tobacco Cessation:Counseling Given: Yes Alcohol Use Standard Drinks/Week Comments Yes 0 [...] Date Recorded PHQ Adult Total Score 0 07/19/2023 Hunger Vital Sign Answer Date Recorded Within the past 12 months, y ou worried that your food would run out before you got the money to buy more. Never true 07/19/20 23 Within the past 12 months, t he food you bought just didn't last and you didn't have money to get more. Never true 07/19/2023 Sex and Gender Information Value Date Recorded Sex Assigned at Male 04/12/2022 3:29 PM EDT Gender Identity Male 04/12/2022 3:29 PM EDT Sexual Orientation Straight 04/12/2022 3: 29 PM EDT Job Start Date Occupation Industry Not on file Not on file Not on file documented as of this encounter Last Filed Vital Signs Vital Sign Reading Time Taken Comments Blood Pressure 114/64 08/01/2023 3:52 PM EST Pulse 74 08/01/2023 3:52 PM EST Temperature 36 C (96.8 F) 08/01/2023 3:52 PM EST Respiratory Rate 16 08/01/2023 3:52 PM EST Oxygen Saturation 94% 08/01/2023 3:52 PM EST Inhaled Oxygen Concentration - - Weight 137.4 kg (303 lb) 08/01/2023 3:52 PM EST Height 182.9 cm (6') 08/01/2023 3:52 PM EST Body Mass Index 41.09 08/01/2023 3:52 PM EST documented in this encounter Progress Notes * Sami Stephens, DO - 08/01/2023 4:19 PM EST SUBJECTIVE: Rlaf Larson is a 78 year old male. 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 He was recently hospitalized due to acute respiratory failure due to pneumonitis caused by Keytruda therapy. Shortness of breath continues to improve but is still present. Leg swelling has improved. He is able to lay flat. Appetite has not improved since hospitalization. Blood pressure has decreased. Patient has left ptosis. No vision loss is present. Patient Active Problem List Diagnosis Code Morbid obesity due to excess calories ([facility]) E66.01 Gouty arthropathy M10.9 Dyslipidemia, goal [...] 40.0 to 44.9 in adult (HCC) Z68.41 Current Outpatient Medications Medication Sig Dispense Refill Aspirin 81 MG Oral Tablet Delayed Release Take 1 Tablet by mouth daily. PM SM Vitamin D3 100 MCG (4000 UT) Oral Capsule (Cholecalciferol) Take by mouth 5,000 Units daily . CPAP every night at bedtime. 1 LPM Dulaglutide 1.5 MG/0.5ML Subcutaneous Solution Pen-injector (Flux) INJECT 1.5MG UNDER THE SKINONCE WEEKLY (Patient taking differently: Tuesday) 6 mL 3 Finasteride 5 MG Oral [...] ONE TABLET BEFORE BEDTIME 180 Tablet 3 Omeprazole 20 MG Oral Capsule Delayed Release (PriLOSEC) Take 1 Capsule by mouth in the morning. 90Capsule 1 Senna 8.6 MG Oral Capsule Take by mouth. 2 tablets twice daily Polyethylene Glycol 3350 17 GM Oral Packet (MiraLax) Take 1 Packet by mouth in the morning. Potassium Chloride ER 10 MEQ Oral Capsule Extended Release Take 1 Capsule by mouth in the morning. 30 Capsule 5 Solifenacin Succinate 5 MG Oral Tablet (VESIcare) TAKE ONE TABLET BY MOUTH EVERY DAY NEEDED (URINARY FREQUENCY 90 Tablet 2 Atorvastatin Calcium 20 MG Oral Tablet (Lipitor) TAKE ONE TABLET BY MOUTH EVERY MORNING 100 Tablet 3 Lidocaine-Prilocaine 2.5-2.5 % External Cream (Emla) APPLY TO SKIN OVER MEDIPORT & COVER 1HR PRIOR TO ACCESSING. 30 g 1 Saline Nasal Fowler 0.65 % Nasal Solution ([place]) Administer 1 Fowler into nostril every 6 hours as needed for Congestion. No current facility-administered medications for this visit. The patient's medication list was reviewed and updated as needed. Past Medical History: Diagnosis Date Gout Heart murmur Hypercholesteremia Hypertension Moderate aortic valve stenosis 04/28/2022 Retinal detachment 2018 Right eye Sleep apnea Sleep apnea, obstructive Past Surgical History: Procedure Laterality Date BX LYMPH NODE-SUPERFIC Left 04/11/2023 BIOPSY LYMPH NODE OPEN SUPERFICIAL performed by Tito Ortega MD at [place] [facility] CATARACT SURGERY,COMPLEX 2016 BOTH EYES COLONOSCOPY has had several IDENTIFY SENTINEL NODE, RADIOACTIVE TRACER Left 04/11/2023 INJECTION PROCEDURE FOR IDENTIFICATION SENTINEL NODE performed by Tito Ortega MD at [place] [facility] INFORMATION tonsils as a child IR VENOUS ACCESS MEDIPORT 05/12/2023 OTHER 2019 VIRECTOMY OD OTHER ACT [address] Townsend (08-21-21) PROCEDURE - GENERAL Left 11/23/2021 Left Inguinal hernia surgery by Dr Mak Fisher PROSTATE, LASER VAPORIZATION N/A 07/21/2022 LASER VAPORIZATION PROSTATE performed by Marbin Ivan MD at [facility] REMOVAL OF PROSTATE (TURP) N/A 07/21/2022 TRANSURETHRAL RESECTION PROSTATE ELECTROSURGICAL performed by Marbin Ivan MD at OR [facility] Review of patient's allergies indicates: Allergen Reactions Keytruda [Pembrolizumab] Penicillins Patient states had a reaction many years ago - that it was the "horse serum kind." Review of Systems Constitutional: Positive for appetite change and fatigue. Negative for chills, fever and unexpectedweight change. Eyes: Negative for visual disturbance. Respiratory: Positive for shortness of breath. Negative for cough and wheezing. Cardiovascular: Positive for leg swelling. Negative for chest pain and palpitations. Gastrointestinal: Positive for constipation. Negative for abdominal pain, blood in stool, diarrhea,nausea and vomiting. Genitourinary: Negative for dysuria and hematuria. Musculoskeletal: Negative for back pain and gait problem. Neurological: Negative for dizziness, syncope and headaches. Psychiatric/Behavioral: Negative for confusion and sleep disturbance. OBJECTIVE: BP 114/64 | Pulse 74 | Temp 36 C (96.8 F) | Resp 16 | Ht 1.829 m (6') | Wt (!) 137.4 kg (303 lb) | SpO2 94% | BMI 41.09 kg/m | BSA 2.64 m Physical Exam Vitals and nursing note reviewed. Constitutional: General: He is not in acute distress. Appearance: Normal appearance. He is not toxic-appearing. HENT: Head: Normocephalic and atraumatic. Cardiovascular: Rate and Rhythm: Normal rate and regular rhythm. Heart sounds: Normal heart sounds. No murmur heard. No gallop. Pulmonary: Effort: Pulmonary effort is normal. Breath sounds: Normal breath sounds. No wheezing, rhonchi or rales. Abdominal: General: Bowel sounds are normal. There is no distension. Palpations: Abdomen is soft. Tenderness: There is no abdominal tenderness. Musculoskeletal: Right lower leg: Edema present. Left lower leg: Edema present. Comments: Leg edema improved. Neurological: Mental Status: He is alert and oriented to person, place, and time. Mental status is at baseline. Motor: No weakness. Gait: Gait normal. Psychiatric: Mood and Affect: Mood normal. Behavior: Behavior normal. Thought Content: Thought content normal. 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) Continue to follow with Medical Oncology and Dermatology Acquired ptosis of eyelid, left - ADULT/PEDS OPHTHALMOLOGY/OPTOMETRY REFERRAL OP Gouty arthropathy Dyslipidemia, goal LDL below 70 Continue Atorvastatin BPH with obstruction/lower urinary tract symptoms Continue Finasteride HTN, goal below 150/90 Continue Losartan, HCTZ and Amlodipine Decrease Amlodipine if BP still low at next visit SANDRINE on CPAP Prediabetes Continue Dulaglutide SCOTT (generalized anxiety disorder) Continue Sertraline Moderate to severe aortic stenosis Continue to follow with Cardiology Drug-induced pneumonitis - PULSE OX W/ REST/EXERCISE, MULTIPLE (OP) Patient has desaturation with ambulation Needs to wear oxygen as all times Follow Up: Return if symptoms worsen or fail to improve. Sami Stephens DO 4:19 PM 08/01/2023 documented in this encounter Nursing Notes * Jenae Garrett LPN - 08/01/2023 3:52 PM EST Here to discuss eye surgery documented in this encounter Plan of Treatment Upcoming Encounters Date Type Department Care Team (Late st Contact Info) Description 08/10/2023 1:00 PM EST Laboratory Laboratory [facility] [address] [place], [place] [id number] [place], Lab [place] [address] [place], [place] [address] 08/10/2023 1:30 PM EST Nurse Only Hematology/Oncology [facility] [address] [place], [place] [address] [place], Nurse Hem Onc Scenery [address] [place], [place] [address] 08/10/2023 3:00 PM EST Office Visit Family Practice [address] [place] [address] [address] [place] [address] Sami Stephens DO [address] [place] [address] 08/30/2023 11:15 AM EST Office Visit Dermatology [facility] [address] [place], [place] [address] Nik Vieira MD [address] [place], [place] [address] 08/31/2023 3:15 PM EST Procedure Only Urology, [facility] [address] [place] [address] Marbin Ivan MD [address] [facility] [address] [place] [address] 09/22/2023 1:15 PM EST Office Visit Hematology/Oncology [facility] [address] [place], [place] [address] Rasheed Maldonado MD [address] [place], [place] [address] 10/18/2023 10:00 AM EST Nurse Only Ancillary [address] [place] [address] [address] [facility] [place] [address] College, Nurse Annual Wellness Visit [address], [place] [address] 11/18/2023 10:45 AM EDT Office Visit Hematology/Oncology [facility] [address] [place] [address] Rasheed Maldonado MD [address] [place] [address] 03/12/2024 1:10 PM EDT Office Visit Dermatology [facility] [place] [address] [place] [address] Natasha Nova PA-C [address] [place] [address] 03/13/2024 1:30 PM EDT Office Visit Cardiology, [facility] [address] [facility] [place] [address] Angela Peter CRNP [address] [facility] [place] [address] 05/17/2024 10:00 AM EDT Office Visit Sleep Disorders [facility] [address] [facility] [place] [id number] Kathrine Haile CRNP [address] [facility] [place] [address] Scheduled Orders Name Type Priority Associated Diagnoses Orde r Schedule PULSE OX W/ REST/EXERCISE, MULTIPLE (OP) Procedures Routine Drug-induced pneumonitis Ordered: 08/01/2023 Scheduled Referrals Name Type Priority Associated Diagnoses Orde r Schedule ADULT/PEDS OPHTHALMOLOGY/OPTOM ETRY REFERRAL OP Referral Within 10 days (routine) Acquired ptosis of eyelid, left Ordered: 08/01/2023 Health Maintenance Due Date Last Done Comments COVID-19 Vaccine ( season) 2023 05/18/2022, 02/02/2022, 06/08/2021, Additional history exists HbA1c 05/27/2024 05/27/2023, 01/14, 10/18/2022, Additional history exists Depression Screening 07/19/2024 07/19/2023 GFR 07/19/2024 07/19/2023, 06/16, 07/06/2023, Additional history exists Albumin/Creatinine Ratio 01/08/2025 01/08/2022, [...] this encounter Medical Devices Implanted Type Area [employer] Family Teacher Device Identifier Shelf Expiration Date Model / Serial / Lot Port Implant W/8f Poly Cath - [id number] Implanted:Qty: 1 on 05/12/2023 at [facility] CR BARD : PERIPHERAL VASCULAR [id number] 07/14/2024 [id number] / / [id number] documented as of this encounter Visit Diagnoses Diagnosis Melanoma of face (HCC)- Primary Malignant melanoma of skin of other and unspecified parts of face 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) Secondary malignant neoplasm of other specified sites Acquired ptosis of eyelid, left Gouty arthropathy Gouty arthropathy, unspecified Dyslipidemia, goal LDL below 70 Other and unspecified hyperlipidemia BPH with obstruction/lower urinary tract symptoms Hypertrophy of prostate with urinary obstruction and other lower urinary tract symptoms (LUTS) HTN, goal below 150/90 SANDRINE on CPAP Obstructive sleep apnea (adult) (pediatric) Prediabetes Other abnormal glucose SCOTT (generalized anxiety disorder) Generalized anxiety disorder Moderate to severe aortic stenosis Drug-induced pneumonitis Pneumonia, organism unspecified documented in this encounter Advance Directives Latest [...] Advance Directives occurred with: Patient Care Teams Therapy Assistant Relationship Specialty Start Date End Date Sami Stephens DO [address] [facility] [place] [address] PCP - General Internal Medicine 01/08/22 documented as of this encounter
--- OUTSIDE RECORDS SUMMARY | 2023-09-12 16:18 | External Medical Summary | Summary of Care ---
Author Name Unknown Organization [facility] Address [address] [place] [address] Phone [phone] Care Team Providers Care Fresh Foods Cake Decorator Name Role Phone Sami Stephens DO Primary Care Provider [phone] Reason for Referral * Evaluate & Treat - Unlimited Visits (Within 10 days (routine)) - Authorized Specialty Diagnoses / Procedures Referred By Katie garber Referred To Contact Optometry Diagnoses Acquired ptosis of eyelid, left Sami Stephens DO [address] [place] [address] Referral ID Status Reason Start Date Expiration Date Visits Requested Visits Authorized [id number] Authorized Specialty Services Required 3 [phone] Question Answer Referral Priority Within 10 days (routine) Where should this appointment be scheduled? [place] Referring to: [facility] will not schedule outside referrals Acknowledge Referring for: Optometry Conditions Optometry Conditions Other Optometry (comment) Comments Ptosis Reason for Visit * Reason Comments Follow Up Encounter Details Date Type Department Care Team (Late st Contact Info) Description 08/01/2023 3:40 PM EST Office Visit Family Practice 65 [facility], [place] [address] [place] [address] Sami Stephens DO [address] [place] [address] Melanoma of face (HCC)*; Metastatic melanoma to [...] as of this encounter (statuses as of 08/02/2023) Medications Medication Sig Dispensed Refills Start Date [...] Tablet 2 07/18/2023 4 Active Saline Nasal [place] 0.65 % Nasal Solution (Olar)Indications :Nasal drainage Administer 1 [place] into nostril every 6 hours as needed [...] as of this encounter (statuses as of 08/02/2023) Active Problems Problem Noted Date Diagnosed Date [...] as of this encounter (statuses as of 08/02/2023) Resolved Problems Problem Noted Date Diagnosed Date Resolved Date Body mass index (BMI) of 45. 0 to 49.9 in adult 01/25/2022 07/28/2023 Overview: Per Obesity protocol documented as of this encounter (statuses as of 08/02/2023) Immunizations Name Administration Dates Next Due COVID-19 mRNA, LNP-s, No Pre serve, 2-Dose Series (Moderna) 09/23/2020,08/29/2020 COVID-19, mRNA, LNP-s, PF, B ooster, 100mcg/0.5mg (Moderna) 02/02/2022,06/08/2021 Covid-19, Mrna, Lnp-s, Pf, B ivalent, 50 Mcg, IM, 12 yrs and above (Moderna) 05/18/2022 Pneumococcal Conjugate Vacci ne, 20-valent ([id number]) 04/12/2022 Seasonal Influenza, Quadriva lent Hd (Fluzone [...] Answer Date Recorded PHQ Adult Total Score 2 08/01/2023 Hunger Vital Sign Answer Date Recorded Within the past 12 months, y ou worried that your food would run out before you got the money to buy more. Never true 08/01/20 23 Within the past 12 months, t he food you bought just didn't last and you didn't have money to get more. Never true 08/01/2023 Sex and Gender Information Value Date Recorded [...] DO - 08/01/2023 4:19 PM EST SUBJECTIVE: Ralf Larson is a 78 year old male. [...] Code Morbid obesity due to excess calories ([facility]) E66.01 Gouty arthropathy M10.9 Dyslipidemia, goal [...] LPM Dulaglutide 1.5 MG/0.5ML Subcutaneous Solution Pen-injector ([employer]) INJECT 1.5MG UNDER THE SKINONCE WEEKLY (Patient [...] TO ACCESSING. 30 g 1 Saline Nasal [place] 0.65 % Nasal Solution (Olar) Administer 1 [place] into nostril every 6 hours as needed [...] performed by Tito Ortega MD at [facility] CATARACT SURGERY,COMPLEX 2016 BOTH EYES COLONOSCOPY has had several IDENTIFY SENTINEL NODE, RADIOACTIVE TRACER Left 04/11/2023 INJECTION PROCEDURE FOR IDENTIFICATION SENTINEL NODE performed by Tito Ortega MD at [facility] INFORMATION tonsils as a child IR VENOUS ACCESS MEDIPORT 05/12/2023 OTHER 2019 VIRECTOMY OD OTHER ACT [address] Townsend (08-21-21) PROCEDURE - GENERAL Left 11/23/2021 Left Inguinal hernia surgery by Dr Mak Fisher PROSTATE, LASER VAPORIZATION N/A 07/21/2022 LASER VAPORIZATION PROSTATE performed by Marbin Ivan MD at [facility] REMOVAL OF PROSTATE (TURP) N/A 07/21/2022 TRANSURETHRAL RESECTION PROSTATE ELECTROSURGICAL performed by Marbin Ivan MD at OR [facility] Review of patient's allergies indicates: Allergen Reactions [...] Description 08/10/2023 1:00 PM EST Laboratory Laboratory [facility] [address] [place], [place] [phone] [place], Lab [facility] [address] [place], [place] [address] 08/10/2023 1:30 PM EST Nurse Only Hematology/Oncology [facility] [address] [place], [place] [address] [place], Nurse Hem Onc Scenery [address] [place], [place] [address] 08/10/2023 3:00 PM EST Office Visit Family Practice [address] [place] [address] 293 [place] [address] Sami Stephens DO 293 [facility] [address] 08/30/2023 11:15 AM EST Office Visit Dermatology [facility] [address] [place], [place] [address] Nik Vieira MD [address] [place], [place] [address] 08/31/2023 3:15 PM EST Procedure Only Urology, [facility] [address] [facility] [place] [address] Marbin Ivan MD 27 [facility] [address] [place] [address] 09/22/2023 1:15 PM EST Office Visit Hematology/Oncology [facility] [address] [place], [place] [address] Rasheed Maldonado MD [address] [place], [place] [address] 10/18/2023 10:00 AM EST Nurse Only Ancillary [address] [place] [address] [facility] [place] [address] College, Nurse Annual Wellness Visit [address], [place] [address] 11/18/2023 10:45 AM EDT Office Visit [facility]ology[facility] 200 [facility] [place] [address] Rasheed Maldonado MD 200 [facility] [place] [address] 12/12/2023 9:00 AM EDT Office Visit Ophthalmology, [facility] 132 [facility] [place] [address] Ganesh Perez, 16 [place] [address] 03/12/2024 1:10 PM EDT Office Visit Dermatology [facility] [address] [place] [address] Natasha Nova PA-C [address] [place] [address] 03/13/2024 1:30 PM EDT Office Visit Cardiology, [facility] 132 [facility] [place] [address] Angela Peter CRNP [address] [place] [address] [place] [phone] 05/17/2024 10:00 AM EDT Office Visit Sleep Disorders Ctr [facility] 132 [facility] [place] [address] Kathrine Haile CRNP 132 [facility] [place] [address] Scheduled Orders Name Type Priority Associated Diagnoses [...] 05/27/2024 05/27/2023, 01/14, 10/18/2022, Additional history exists GFR 07/19/2024 07/19/2023, 06/16, 07/06/2023, Additional history exists Depression Screening 08/01/2024 08/01/2023 Albumin/Creatinine Ratio 01/08/2025 01/08/2022, 03/16 DTaP,Tdap,and Td [...] this encounter Medical Devices Implanted Type Area Product Applications Engineer Device Identifier Shelf Expiration Date Model / Serial / Lot Port Implant W/8f Poly Cath - [id number] Implanted:Qty: 1 on 05/12/2023 at [facility] BARD : PERIPHERAL VASCULAR [id number] 07/14/2024 [id number] / / [id number] documented as of this encounter Visit Diagnoses [...] Advance Directives occurred with: Patient Care Teams Fresh Foods Cake Decorator Relationship Specialty Start Date End Date Sami Stephens DO 293 [place] [address] PCP - General Internal Medicine 01/08/22 documented as of this encounter
--- OUTSIDE RECORDS SUMMARY | 2023-09-12 16:18 | External Medical Summary | Summary of Care ---
Author Name Unknown Organization [facility] Address [address] [place] [address] Phone [phone] Care Team Providers Care Setter Automatic Spinning Lathe Name Role Phone Sami Stephens DO Primary Care Provider [phone] Reason for Visit * Reason Onset Date Comments Appointment 07/27/2023 Ocular Plastics Encounter Details Date Type Department Care Team (Late st Contact Info) Description 07/27/2023 Telephone Family Practice [address], [place] [address] [place] [address] Sami Stephens DO [address] [place], [place] [phone] Appointment (Ocular Plastics) Allergies Active Allergy Reactions Criticality Noted Date Comments Pembrolizumab 07/01/2023 Penicillins 03/22/2023 Patient states had a reaction many years ago - that it was the "horse serum kind." documented as of this encounter (statuses as of 07/28/2023) Medications Medication Sig Dispensed Refills Start Date End Date Status Aspirin 81 MG Oral Tablet Delayed Release Take 1 Tablet by mouth daily. PM 0 Active SM Vitamin D3 100 MCG (4000 UT) Oral Capsule (Cholecalciferol) Take by mouth 5,000 Units daily . 0 Active CPAP every night at bedtime . 0 Active Dulaglutide 1.5 MG/0.5ML Subcutaneous Solution Pen-injector (Trulicity)Indicati ons:Prediabetes INJECT 1.5MG UNDER THE SKIN ONCE WEEKLY 6 mL 3 02/07/2023 02/07/2024 Active Additional Information Patient taking differently: Wednesday, Reported on 07/01/2023 Atorvastatin Calcium 20 MG Oral Tablet (Lipitor)Indication s:Dyslipidemia, goal LDL below 130 TAKE ONE TABLET BY MOUTH EVERY MORNING 100 Tablet 3 10/19/2022 11/11/2023 Active Additional Information Patient not taking.Reported on 06/10/2023 Finasteride 5 MG Oral Tablet (Proscar)Indication s:BPH [...] Active Additional Information Patient not taking.Reported on 07/19/2023 Sulfamethoxazole-Tr imethoprim 800-160 MG Oral Tablet (Bactrim DS)Indications: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 30 Tablet 1 06/10/2023 Active Omeprazole 20 MG Oral Capsule Delayed [...] Chloride ER 10 MEQ Oral Capsule Extended ReleaseIndications: Hypokalemia Take 1 Capsule by mouth in the morning. 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 Taper per Dr Maldonado based on lab results. 14 Tablet 0 07/13/2023 Active Solifenacin Succinate 5 MG Oral Tablet (VESIcare) TAKE ONE TABLET BY MOUTH EVERY DAY NEEDED (URINARY FREQUENCY 90 Tablet 2 07/18/2023 07/17/2024 Active Saline Nasal [place] 0.65 % Nasal Solution ([place]wall)Indications: Nasal drainage Administer 1 [place] into nostril every 6 hours as needed for Congestion. 0 07/19/2023 Active documented as of this encounter (statuses as of 07/28/2023) Active Problems Problem Noted Date Diagnosed Date [...] as of this encounter (statuses as of 07/28/2023) Resolved Problems Problem Noted Date Diagnosed Date Resolved Date Body mass index (BMI) of 45. 0 to 49.9 in adult 01/25/2022 07/28/2023 Overview: Per Obesity protocol documented as of this encounter (statuses as of 07/28/2023) Immunizations Name Administration Dates Next Due COVID-19 mRNA, LNP-s, No Pre serve, 2-Dose Series (Moderna) 09/23/2020,08/29/2020 COVID-19, mRNA, LNP-s, PF, B ooster, 100mcg/0.5mg (Moderna) 02/02/2022,06/08/2021 Covid-19, Mrna, Lnp-s, Pf, B ivalent, 50 Mcg, IM, 12 yrs and above (Moderna) 05/18/2022 Pneumococcal Conjugate Vacci ne, 20-valent ([id number]) 04/12/2022 Seasonal Influenza, Quadriva lent Hd (Fluzone [...] Telephone Encounter - Kathi Renteria OSA - 07/27/2023 10:03 AM EST PLASTIC SURGERY REFERRAL OP 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 [address] Angela Peter CRNP [address] [place], [place] [address] [address] 08/01/2023 3:40 PM EST Office Visit Family Practice 65 [facility] [place] [address] [place] [phone] Sami Stephens DO 293 [facility], [place] [address] 08/10/2023 1:00 PM EST Laboratory Laboratory [facility] [address] [place] [phone] [place], Lab Scenery [address] [place], [place] [address] 08/10/2023 1:30 PM EST Nurse Only Hematology/Oncology [facility] [address] [place], [place] [address] [place], Nurse Hem Onc [facility] [address] [place], [place] [address] 08/10/2023 3:00 PM EST Office Visit Family Practice 65 [facility] 293 [place] [address] Sami Stephens, 293 [facility] [place] [address] 08/30/2023 11:15 AM EST Office Visit Dermatology [facility] [address] [place], [place] [address] Nik Vieira MD [address] [place], [place] [address] 08/31/2023 3:15 PM EST Procedure Only Urology, [facility] 132 [facility] [place] [address] Marbin Ivan MD 27 [facility] [address] [place] [address] 09/22/2023 1:15 PM EST Office Visit Hematology/Oncology [facility] [address] [place], [place] [address] Rasheed Maldonado MD [address] [place], [place] [address] 10/18/2023 10:00 AM EST Nurse Only Ancillary 65 [facility] 293 [place] [address] College, Nurse Annual Wellness Visit [address] [place] [address], [place] [address] 11/18/2023 10:45 AM EDT Office Visit Hematology/Oncology [facility] 200 [facility] [place], [place] [address] Rasheed Maldonado MD 200 [facility] [place] [address] 03/12/2024 1:10 PM EDT Office Visit Dermatology [facility] [place] [address] [place] [address] Natasha Nova PA-C [address] [place] [address] 03/13/2024 1:30 PM EDT Office Visit Cardiology, [facility] [address] Angela Peter CRNP [address] [place], [place] [address] [phone] 05/17/2024 10:00 AM EDT Office Visit Sleep Disorders Ctr [facility] 132 [facility] [phone] Kathrine Haile CRNP 132 [facility] [place] [address] Health Maintenance Due Date Last Done Comments [...] this encounter Medical Devices Implanted Type Area Commercial Green Building Architect Device Identifier Shelf Expiration Date Model / Serial / Lot Port Implant W/8f Poly Cath - [id number] Implanted:Qty: 1 on 05/12/2023 at [facility] BARD : PERIPHERAL VASCULAR [id number] 07/14/2024 [id number] / / [id number] documented as of this encounter Advance Directives [...] Advance Directives occurred with: Patient Care Teams Setter Automatic Spinning Lathe Relationship Specialty Start Date End Date Sami Stephens DO [address] [place] [address] PCP - General Internal Medicine 01/08/22 documented as of this encounter
--- OUTSIDE RECORDS SUMMARY | 2023-09-12 16:18 | External Medical Summary | Summary of Care ---
Author Name Unknown Organization [facility] Address [address] [place] [address] Phone [phone] Care Team Providers Care Server Security Administrator Name Role Phone Sami Stephens DO Primary Care Provider [phone] Reason for Visit * Reason Onset Date Comments Medication Pre-auth 08/16/2023 trulicity Encounter Details Date Type Department Care Team (Late st Contact Info) Description 08/16/2023 Telephone Family Practice [address], [place] [address] [place] [address] Sami Stephens DO [address] [place], [place] [phone] Medication Pre-auth (trulicity) Allergies Active Allergy Reactions [...] Tablet 2 07/18/2023 07/17/2024 Active Saline Nasal [place] 0.65 % Nasal Solution ([place])Indications: Nasal drainage Administer 1 [place] into nostril every 6 hours as needed [...] (Moderna) 05/18/2022 Pneumococcal Conjugate Vacci ne, 20-valent ([id number]) 04/12/2022 Seasonal Influenza, Quadriva lent Hd (Fluzone [...] Notes * Telephone Encounter - Tracy Hsieh [facility] - 08/17/2023 8:29 AM EST Faxed form [...] 08/17/2023 8:17 AM EST VM left from [facility] requesting more information. Form was faxed w requested information to us to be filled out and faxed back. Also stating, the auth must be submitted by 9:00 am. * Telephone Encounter - Kathi Hennessy OSA - 08/16/2023 4:28 PM EST Guadalupe Tinajero called,regarding prior auth. They are looking for information on if the patient has a diagnosis of type II diabetes [phone] Guadalupe - if so, please fax to [phone] * Telephone Encounter - Chuck Castro [facility] - 08/16/2023 1:45 PM EST Please [...] this and route back to the [facility] pool if no decision is made by the insurance by 08/22, after clarifying with the pharmacy that the claim is still not processing. If PA is denied, please also route back to [facility] pool. Thanks, Chuck Castro PharmD Clinical Pharmacist [facility] ([facility]) (formerly Telepharmacy) [phone] 08/16/2023, 1:45 PM * Telephone Encounter - Vidya Deras PHARM Tech - 08/16/2023 1:38 PM EST This is a new [place] request. Upon review of this prior authorization request, I verified this request is appropriate. This is prescribed by a department for which [facility] is authorized to review prior authorizations This [...] note, there is nothing currently pending in [facility] for this request. Please advise how to proceed. Thanks, Vidya Deras Ground Transportation Operator III [facility] ([facility]) 08/16/2023,1:38 PM * Telephone Encounter - Antonina Arthur CPhT - 08/16/2023 12:24 PM EST Pharmacy calling to inform doctor that the patient's insurance will not pay for this medication without a completed prior authorization. Did confirm this information with the pharmacy. Pt's current insurance information is as follows: Patient name: Ralf Larson ID number: [id number] BIN number: [id number] PCN number: [id number] Group number: [id number] Subscriber name: Ralf Larson Primary or Secondary Insurance:Primary Medication: trulicity Reason for Request: PA required Pharmacy and phone number: [facility] [phone] Rx plan and phone number: [facility] [phone] Is this a new medication for the patient? No. How did the patient obtain the medication on the lastfill? It was covered last time on this same insurance. What alternative medications does the pharmacy have in stock?: Thank you, Antonina Arthur CPhT Ground Transportation Operator [facility] ([facility]) (Formerly Telepharmacy) 08/16/2023, 12:25 PM documented in this encounter Plan of Treatment Upcoming Encounters Date Type Department Care Team (Late st Contact Info) Description 08/30/2023 10:40 AM EST Laboratory Laboratory [facility] [place] 200 [facility] [place] [phone] [place], Lab [facility] 200 [facility] [place] [address] 08/30/2023 11:15 AM EST Office Visit Dermatology [facility] [place] [facility] [place] [address] Nik Vieira MD 200 [facility] [place] [address] 08/30/2023 11:45 AM EST Nurse Only Hematology/Oncology [facility] [place] [address] [place] [address] [place], Nurse Hem Onc [facility] [place] [address] 08/31/2023 3:15 PM EST Procedure Only Urology, [facility] [place] [place] [facility] [address] Marbin Ivan MD 27 [facility] [address] [place] [address] 09/22/2023 1:15 PM EST Office Visit Hematology/Oncology [facility] [address] [place] [address] Rasheed Maldonado MD 200 [facility] [place] [address] 10/18/2023 10:00 AM EST Nurse Only Ancillary 65 [facility] [address] [place] [address] College, Nurse Annual Wellness Visit [address] [address] 11/18/2023 10:45 AM EDT Office Visit Hematology/Oncology [facility] [address] [place] [address] Rasheed Maldonado MD 200 [place] [address] 11/29/2023 3:00 PM EDT Office Visit Family Practice 65 [facility] [address] [place] [address] Sami Stephens, DO [address] [place] [address] 12/12/2023 9:00 AM EDT Office Visit Ophthalmology, [facility] 132 [facility] [place] [address] Ganesh Perez, DO 16 [place] [address] 03/12/2024 1:10 PM EDT Office Visit Dermatology [facility], [address] [address] Natasha Nova PA-C 3228 [facility] [place] [address] 03/13/2024 1:30 PM EDT Office Visit Cardiology, [facility] 132 [facility] [place] [address] Angela Peter CRNP [address] [place] [address] 05/17/2024 10:00 AM EDT Office Visit Sleep Disorders Ctr [facility] 132 [facility] [place] [address] Kathrine Haile CRNP 132 [facility] [place] [address] Health Maintenance Due Date Last Done Comments COVID-19 Vaccine (2022- season) 2023 05/18/2022, 02/02/2022, 06/08/2021, Additional history exists HbA1c 05/27/2024 05/27/2023, 01/14, 10/18/2022, Additional history exists Depression Screening 08/10/2024 08/10/2023 GFR 08/10/2024 08/10/2023, 12/0 12/2022, 07/13/2023, Additional history exists Albumin/Creatinine Ratio 01/08/2025 [...] this encounter Medical Devices Implanted Type Area Director Supplier Quality Device Identifier Shelf Expiration Date Model / Serial / Lot Port Implant W/8f Poly Cath - [id number] Implanted:Qty: 1 on 05/12/2023 at [facility] CR BARD : PERIPHERAL VASCULAR [id number] 07/14/2024 [id number] / / [id number] documented as of this encounter Visit Diagnoses [...] Advance Directives occurred with: Patient Care Teams Server Security Administrator Relationship Specialty Start Date End Date Sami Stephens DO [address] [place] [address] PCP - General Internal Medicine 01/08/22 documented as of this encounter
--- OUTSIDE RECORDS SUMMARY | 2023-09-12 16:18 | External Medical Summary ---
Author Name Unknown Address Unknown Organization K[facility] [address] Laboratory Report Ordering Provider Test Date Status EMANI CAMPBELL 08/10/2023 12:22:39 Final Observation Date Value Abnormality Reference (Units ) Status WBC, Total 08/10/2023 12:22:39 9.42 4.00-10.8 0 (K/uL) Final RBC 08/10/2023 12:22:39 4.70 4.50-5.25 (M/uL) Final Hemoglobin 08/10/2023 12:22:39 14.2 14.0-16.8 (g/dL) Final HCT 08/10/2023 12:22:39 43.2 40.0-48.4 (%) Final MCV 08/10/2023 12:22:39 91.9 82.0-99.5 (fL) Final MCH 08/10/2023 12:22:39 30.2 27.0-34.0 (pg) Final MCHC 08/10/2023 12:22:39 32.9 32.0-36.0 (g/dL) Final RDW 08/10/2023 12:22:39 14.9 11.5-15.5 (%) Final Platelets 08/10/2023 12:22:39 177 140-400 (K /uL) Final MPV 08/10/2023 12:22:39 9.3 6.6-11.1 ( fL) Final Performing Location [facility] [address]
--- OUTSIDE RECORDS SUMMARY | 2023-09-12 16:18 | External Medical Summary | Summary of Care ---
Author Name Unknown Organization [facility] Address [address] [place] [address] Phone [phone] Care Team Providers Care Instrument Lens Inspector Name Role Phone Sami Stephens DO Primary Care Provider Reason for Visit * Reason Comments Follow Up Encounter Details Date Type Department Care Team (Late st Contact Info) Description 08/10/2023 3:00 PM EST Office Visit Family Practice 65 [facility] [place] [address] [place] [phone] Sami Stephens DO [address] [place] [address] Melanoma of face (HCC)*; Dyslipidemia, goal LDL below 70; Gouty arthropathy; BPH with obstruction/lower urinary tract symptoms; SANDRINE on CPAP; Prediabetes; Moderate to severe aortic stenosis; Essential tremor; Drug-induced constipation; Hypokalemia Allergies Active Allergy Reactions Criticality Noted Date Comments Aspartame 08/10/2023 Pembrolizumab 07/01/2023 Penicillins 03/22/2023 Patient states had a reaction many years ago - that it was the "horse serum kind." documented as of this encounter (statuses as of 08/10/2023) Medications Medication Sig Dispensed Refills Start Date [...] 90 Tablet 2 07/18/2023 Active Saline Nasal Chaparral 0.65 % Nasal Solution (Baraga)Indications :Nasal drainage Administer 1 Chaparral into nostril every 6 hours as needed for Congestion. 0 07/19/2023 Active Potassium Chloride Nicky ER 20 MEQ Oral Tablet Extended ReleaseIndications :Hypokalemia Take 1 Tablet by mouth in the morning. 30 Tablet 1 08/10/2023 Active Potassium Chloride ER 10 MEQ Oral Capsule Extended ReleaseIndications :Hypokalemia Take 1 Capsule by mouth in the morning. 30 Capsule 5 07/01/2023 Discontinue d(Medicatio n/Dose Changed) documented as of this encounter (statuses as of 08/10/2023) Active Problems Problem Noted Date Diagnosed Date [...] as of this encounter (statuses as of 08/10/2023) Resolved Problems Problem Noted Date Diagnosed Date Resolved Date Body mass index (BMI) of 45. 0 to 49.9 in adult 01/25/2022 07/28/2023 Overview: Per Obesity protocol documented as of this encounter (statuses as of 08/10/2023) Immunizations Name Administration Dates Next Due COVID-19 mRNA, LNP-s, No Pre serve, 2-Dose Series (Moderna) 09/23/2020,08/29/2020 COVID-19, mRNA, LNP-s, PF, B ooster, 100mcg/0.5mg (Moderna) 02/02/2022,06/08/2021 Covid-19, Mrna, Lnp-s, Pf, B ivalent, 50 Mcg, IM, 12 yrs and above (Moderna) 05/18/2022 Pneumococcal Conjugate Vacci ne, 20-valent ([id number]) 04/12/2022 Seasonal Influenza, Quadriva lent Hd (Fluzone [...] Sign Reading Time Taken Comments Blood Pressure 128/68 08/10/2023 2:26 PM EST Pulse 70 08/10/2023 2:26 PM EST Temperature 36.4 C (97.6 F) 08/10/2023 2:26 PM ES T Respiratory Rate 14 08/10/2023 2:26 PM EST Oxygen Saturation 97% 08/10/2023 2:26 PM EST Inhaled Oxygen Concentration - - Weight 138.6 kg (305 lb 9.6 oz) 08/10/2023 2:26 PM EST Height 182.9 cm (6') 08/10/2023 2:26 PM EST Body Mass Index 41.45 08/10/2023 2:26 PM EST documented in this encounter Progress Notes * Sami Stephens, - 08/10/2023 3:25 PM EST SUBJECTIVE: Ralf Larson is a [...] that is seen for follow up. He is feeling better but still has fatigue and decreased appetite. Prednisone completed. Patient had respiratory failure due to Keytruda therapy. Shortness of breath is still present. He is wearing oxygen 2 l at all times. Leg swelling continues to improve. Potassium was low today. 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 PM SM Vitamin D3 100 MCG (4000 UT) Oral Capsule (Cholecalciferol) Take by mouth 5,000 Units daily . CPAP every night at bedtime. 1 LPM Dulaglutide 1.5 MG/0.5ML Subcutaneous Solution Pen-injector (Vubiquity) INJECT 1.5MG UNDER THE SKINONCE WEEKLY (Patient taking differently: Tuesday) 6 mL 3 Atorvastatin Calcium 20 MG Oral Tablet (Lipitor) TAKE ONE TABLET BY MOUTH EVERY MORNING 100 Tablet 3 Finasteride 5 MG Oral Tablet (Proscar) [...] DAY NEEDED (URINARY FREQUENCY 90 Tablet 2 Potassium Chloride Nicky ER 20 MEQ Oral Tablet Extended Release Take 1 Tablet by mouth in the morning. 30 Tablet 1 Lidocaine-Prilocaine 2.5-2.5 % External Cream (Emla) APPLY TO SKIN OVER MEDIPORT & COVER 1HR PRIOR TO ACCESSING. 30 g 1 Saline Nasal Chaparral 0.65 % Nasal Solution (Baraga) Administer 1 Chaparral into nostril every 6 hours as needed [...] performed by Tito Ortega MD at OR [facility] CATARACT SURGERY,COMPLEX 2016 BOTH EYES COLONOSCOPY has had several IDENTIFY SENTINEL NODE, RADIOACTIVE TRACER Left 04/11/2023 INJECTION PROCEDURE FOR IDENTIFICATION SENTINEL NODE performed by Tito Ortega MD at OR [facility] INFORMATION tonsils as a child IR VENOUS ACCESS MEDIPORT 05/12/2023 OTHER 2019 VIRECTOMY OD OTHER ACT [address] Townsend (08-21-21) PROCEDURE - GENERAL Left 11/23/2021 Left Inguinal hernia surgery by Dr Mak Fisher PROSTATE, LASER VAPORIZATION N/A 07/21/2022 LASER VAPORIZATION PROSTATE performed by Marbin Ivan MD at OR [facility] REMOVAL OF PROSTATE (TURP) N/A 07/21/2022 TRANSURETHRAL RESECTION PROSTATE ELECTROSURGICAL performed by Marbin Ivan MD at OR [facility] Review of patient's allergies indicates: Allergen Reactions Aspartame Keytruda [Pembrolizumab] Penicillins Patient states had a reaction many years ago - that it was the "horse serum kind." Review of Systems Constitutional: Positive for appetite change and fatigue. Negative for unexpected weight change. Respiratory: Positive for shortness of breath. Negative for cough and wheezing. Cardiovascular: Negative for chest pain, palpitations and leg swelling. Gastrointestinal: Negative for abdominal pain, blood in stool, constipation, diarrhea, nausea and vomiting. Genitourinary: Negative for dysuria and hematuria. Nocturia is present Musculoskeletal: Negative for back pain and gait problem. Neurological: Negative for dizziness, syncope and headaches. Psychiatric/Behavioral: Negative for confusion, decreased concentration and sleep disturbance. OBJECTIVE: BP 128/68 | Pulse 70 | Temp 36.4 C (97.6 F) (Tympanic) | Resp 14 | Ht 1.829 m (6') | Wt (!) 138.6 kg (305 lb 9.6 oz) | SpO2 97% | BMI 41.45 kg/m | BSA 2.65 m Physical Exam Vitals and nursing note [...] no abdominal tenderness. Musculoskeletal: Right lower leg: No edema. Left lower leg: No edema. Neurological: Mental Status: He is alert and oriented to person, place, and time. Mental status is at baseline. Motor: No weakness. Gait: Gait normal. Psychiatric: Mood and Affect: Mood normal. Behavior: Behavior normal. Thought Content: Thought content normal. Component Latest Ref Rng 07/19/2023 08/10/2023 BUN 6 - 20 mg/dL 13 Creatinine 0.6 - 1.2 mg/dL 1.2 Estimated Glomerular Filtration Rate >=60 mL/min 60 Sodium 135 - 146 mmol/L 143 Potassium 3.5 - 5.1 mmol/L 3.0 (L) Chloride 98 - 107 mmol/L 99 CO2 22 - 32 mmol/L 33 (H) Anion Gap 7 - 15 mmol/L 11 Glucose 70 - 120 mg/dL 116 Albumin 3.8 - 5.0 g/dL 4.0 AST 10 - 50 U/L 31 Alkaline Phosphatase 35 - 130 U/L 78 Bilirubin, Total <=1.2 mg/dL 0.5 Calcium 8.4 - 10.2 mg/dL 9.6 Protein 6.0 - 8.3 g/dL 6.8 ALT 10 - 50 U/L 25 WBC 4.00 - 10.80 K/uL 9.42 Neutrophils % 40.0 - 75.0 % 62.9 Lymphocytes % 18.0 - 42.0 % 21.9 Monocytes % 1.0 - 11.0 % 10.8 Eosinophils % 0.0 - 6.0 % 3.7 Basophils % 0.0 - 2.0 % 0.7 Absolute Neutrophils 1.80 - 7.70 K/uL 5.92 Absolute Lymphocytes 1.00 - 4.80 K/ul 2.06 Absolute Monocytes 0.00 - 1.10 K/uL 1.02 Absolute Eosinophils 0.00 - 0.70 K/uL 0.35 Absolute Basophils 0.00 - 0.20 K/uL 0.07 WBC 4.00 - 10.80 K/uL 9.42 RBC 4.50 - 5.25 M/uL 4.70 HGB 14.0 - 16.8 g/dL 14.2 HCT 40.0 - 48.4 % 43.2 MCV 82.0 - 99.5 fL 91.9 MCH 27.0 - 34.0 pg 30.2 MCHC 32.0 - 36.0 g/dL 32.9 RDW 11.5 - 15.5 % 14.9 PLT 140 - 400 K/uL 177 MPV 6.6 - 11.1 fL 9.3 TSH 0.27 - 4.20 uIU/mL 2.87 Legend: (L) Low (H) High PLAN AND ASSESSMENT: Melanoma of face (HCC) (Primary) Continue to follow with Dermatology and Oncology Patient did not tolerate Keytruda Dyslipidemia, goal LDL below 70 Continue Atorvastatin 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 - BASIC METABOLIC PANEL; Future; Expected date: 08/17/2023 Follow-up: Return in about 4 months (around 12/10/2023), or if symptoms worsen or fail to improve. |Check-out note: Schedule Lab in 1 week here Sami Stephens DO 3:26 PM 08/10/2023 documented in this encounter Nursing Notes * Jenae Garrett LPN - 08/10/2023 2:26 PM EST Patient presents for follow up, voices no complaints. documented in this encounter Plan of Treatment Upcoming Encounters Date Type Department Care Team (Late st Contact Info) Description 08/30/2023 10:40 AM EST Laboratory Laboratory [facility] [address] [place] [phone] Jordana Lab [address] [place] [address] 08/30/2023 11:15 AM EST Office Visit Dermatology [facility] [place] 200 [facility] [place] [address] Nik Vieira MD 200 [facility] [place] [address] 08/30/2023 11:45 AM EST Nurse Only Hematology/Oncology [facility] [place] [address] [place] [address] Jordana, Nurse Hem Onc [facility] 200 [facility] [place] [address] 08/31/2023 3:15 PM EST Procedure Only Urology, [facility] [address] [facility] [place] [address] Marbin Ivan MD 27 [facility] [address] [place] [address] 09/22/2023 1:15 PM EST Office Visit Hematology/Oncology [facility] [address] [place], [place] [address] Rasheed Maldonado MD 200 [place] [address] 10/18/2023 10:00 AM EST Nurse Only Ancillary 65 [facility] 293 [place] [address] College, Nurse Annual Wellness Visit [address] [place] [address] 11/18/2023 10:45 AM EDT Office Visit Hematology/Oncology [facility] [address] [place], [place] [address] Rasheed Maldonado MD 200 [place] [address] 11/29/2023 3:00 PM EDT Office Visit Family Practice 65 [facility] 293 [place] [address] Sami Stephens, DO [address] [place] [address] 12/12/2023 9:00 AM EDT Office Visit Ophthalmology, [facility] 132 [facility] [place] [address] Ganesh Perez, DO [address] [place] [address] 03/12/2024 1:10 PM EDT Office Visit Dermatology [facility] [place] [address] [facility] [place] [address] Natasha Nova PA-C [address] [facility] [place] [address] 03/13/2024 1:30 PM EDT Office Visit Cardiology, [facility] 132 [facility] [place] [address] Angela Peter CRNP [address] [facility] [place] [phone] 05/17/2024 10:00 AM EDT Office Visit Sleep Disorders Ctr [facility] [address] [facility] [place] [phone] Kathrine Haile CRNP 132 [facility] [place] [address] Scheduled Orders Name Type Priority Associated Diagnoses Orde r Schedule BASIC METABOLIC PANEL Lab Routine Hypokalemia Expected: 08/17/2023 (Approximate), Expires: 08/09/2024 Health Maintenance Due Date Last Done Comments COVID-19 Vaccine ( season) 2023 05/18/2022, 02/02/2022, 06/08/2021, Additional history exists HbA1c 05/27/2024 05/27/2023, 01/14, 10/18/2022, Additional history exists Depression Screening 08/10/2024 08/10/2023 GFR 08/10/2024 08/10/2023, 1212/2022, 07/13/2023, Additional history exists Albumin/Creatinine Ratio 01/08/2025 [...] this encounter Medical Devices Implanted Type Area Cnc Field Service Engineer Device Identifier Shelf Expiration Date Model / Serial / Lot Port Implant W/8f Poly Cath - [id number] Implanted:Qty: 1 on 05/12/2023 at [facility] : PERIPHERAL VASCULAR [id number] 07/14/2024 [id number] / / [id number] documented as of this encounter Visit Diagnoses Diagnosis Melanoma of face (HCC)- Primary Malignant melanoma of skin of other and unspecified parts of face Dyslipidemia, goal LDL below 70 Other and unspecified hyperlipidemia Gouty arthropathy Gouty arthropathy, unspecified BPH with obstruction/lower urinary tract symptoms Hypertrophy of prostate with urinary obstruction and other lower urinary tract symptoms (LUTS) SANDRINE on CPAP Obstructive sleep apnea (adult) (pediatric) Prediabetes Other abnormal glucose Moderate to severe aortic stenosis Essential tremor Essential and other specified forms of tremor Drug-induced constipation Other constipation Hypokalemia Hypopotassemia documented in this encounter Advance [...] Advance Directives occurred with: Patient Care Teams Instrument Lens Inspector Relationship Specialty Start Date End Date Sami Stephens DO [address] [place] [place] [address] PCP - General Internal Medicine 01/08/22 documented as of this encounter
--- OUTSIDE RECORDS SUMMARY | 2023-09-12 16:18 | External Medical Summary | Summary of Care ---
Author Name Unknown Organization [facility] Address [address] [facility] [place] [address] Phone [phone] Care Team Providers Care Ornamenter Hand Name Role Phone Sami Stephens DO Primary Care Provider [phone] Encounter Details Date Type Department Care Team (Late st Contact Info) Description 08/10/2023 1:30 PM EST Nurse Only Hematology/Oncology [facility] [place] [address] [place] [address] Jordana Nurse Hem Onc [facility] [address] [place] [address] Allergies Active Allergy Reactions Criticality Noted Date Comments Aspartame 08/10/2023 Pembrolizumab 07/01/2023 Penicillins 03/22/2023 Patient states had a reaction many years ago - that it was the "horse serum kind." documented as of this encounter (statuses as of 08/11/2023) Medications Medication Sig Dispensed Refills Start Date [...] Tablet 2 07/18/2023 07/17/2024 Active Saline Nasal K[place]lotus 0.65 % Nasal Solution (Gooding)Indications: Nasal drainage Administer 1 K[place]lotus into nostril every 6 hours as needed for Congestion. 0 07/19/2023 Active documented as of this encounter (statuses as of 08/11/2023) Active Problems Problem Noted Date Diagnosed Date [...] as of this encounter (statuses as of 08/11/2023) Resolved Problems Problem Noted Date Diagnosed Date Resolved Date Body mass index (BMI) of 45. 0 to 49.9 in adult 01/25/2022 07/28/2023 Overview: Per Obesity protocol documented as of this encounter (statuses as of 08/11/2023) Immunizations Name Administration Dates Next Due COVID-19 mRNA, LNP-s, No Pre serve, 2-Dose Series (Moderna) 09/23/2020,08/29/2020 COVID-19, mRNA, LNP-s, PF, B ooster, 100mcg/0.5mg (Moderna) 02/02/2022,06/08/2021 Covid-19, Mrna, Lnp-s, Pf, B ivalent, 50 Mcg, IM, 12 yrs and above (Moderna) 05/18/2022 Pneumococcal Conjugate Vacci ne, 20-valent ([id number]) 04/12/2022 Seasonal Influenza, Quadriva lent Hd (Fluzone [...] Nursing Notes * Linda Sears, RN - 08/11/2023 11:10 AM EST LFTs normal, patient to return in 1 week. Advised him to review K 3.0 with PCP at visit this afternoon. documented in this encounter Plan of Treatment Upcoming Encounters Date Type Department Care Team (Late st Contact Info) Description 08/30/2023 10:40 AM EST Laboratory Laboratory [facility] [address] [place] [phone] [place], Lab [facility] [address] [place] [address] 08/30/2023 11:15 AM EST Office Visit Dermatology [facility] [address] [place] [address] Nik Vieira MD [address] [place] [address] 08/30/2023 11:45 AM EST Nurse Only Hematology/Oncology [facility] [address] [place] [address] Jordana, Nurse Hem Onc [facility] 200 [facility] [place] [address] 08/31/2023 3:15 PM EST Procedure Only Urology, [facility] 132 [facility] [place] [address] Marbin Ivan MD [address] [place] [address] [place] [address] 09/22/2023 1:15 PM EST Office Visit Hematology/Oncology [facility] [place] [address] [place] [address] Rasheed Maldonado MD [address] [place] [address] 10/18/2023 10:00 AM EST Nurse Only Ancillary [address], [place] 293 [place] [address] College, Nurse Annual Wellness Visit 65 [facility] 293 [place] [address] 11/18/2023 10:45 AM EDT Office Visit Hematology/Oncology [facility] 200 [facility] [place] [address] Rasheed Maldonado MD 200 [facility] [place] [address] 11/29/2023 3:00 PM EDT Office Visit Family Practice 65 [facility] [address] [place] [address] Sami Stephens, DO [address] [place] [address] 12/12/2023 9:00 AM EDT Office Visit Ophthalmology, [facility] [place] [address] Ganesh Perez, DO 16 [place] [address] 03/12/2024 1:10 PM EDT Office Visit Dermatology [facility] [address] [place] [address] Natasha Nova PA-C [address] [place] [address] 03/13/2024 1:30 PM EDT Office Visit Cardiology, [facility] 132 [facility] [place] [address] Angela Peter CRNP [address] [place] [address] [place] [address] 05/17/2024 10:00 AM EDT Office Visit Sleep Disorders Ctr [facility] 132 [place] [phone] Kathrine Haile CRNP [address] [place] [address] Health Maintenance Due Date Last Done Comments COVID-19 Vaccine (2022- season) 2023 05/18/2022, 02/02/2022, 06/08/2021, Additional history exists HbA1c 05/27/2024 05/27/2023, 01/14, 10/18/2022, Additional history exists Depression Screening 08/10/2024 08/10/2023 GFR 08/10/2024 08/10/2023, 12/2022, 07/13/2023, Additional history exists Albumin/Creatinine Ratio [...] this encounter Medical Devices Implanted Type Area Therapy Coordinator Device Identifier Shelf Expiration Date Model / Serial / Lot Port Implant W/8f Poly Cath - [id number] Implanted:Qty: 1 on 05/12/2023 at [facility] BARD : PERIPHERAL VASCULAR [id number] 07/14/2024 [id number] / / [id number] documented as of this encounter Advance Directives [...] Advance Directives occurred with: Patient Care Teams Ornamenter Hand Relationship Specialty Start Date End Date Sami Stephens DO 293 [place] [address] PCP - General Internal Medicine 01/08/22 documented as of this encounter
--- OUTSIDE RECORDS SUMMARY | 2023-09-12 16:18 | External Medical Summary | Summary of Care ---
Author Name Unknown Organization [facility] Address [address] [place] [address] Phone [phone] Care Team Providers Care Cab Driver Name Role Phone Sami Stephens DO Primary Care Provider [phone] Reason for Visit * Reason Comments Outpatient Testing Encounter Details Date Type Department Care Team (Late st Contact Info) Description 08/10/2023 1:00 PM EST Laboratory Laboratory [facility] [place] [address] [place] [address] [facility] [address] [facility] [place] [address] Melanoma of face (HCC); Metastatic melanoma to [...] Tablet 2 07/18/2023 07/17/2024 Active Saline Nasal Metaline 0.65 % Nasal Solution (Mar-Mac)Indications: Nasal drainage Administer 1 Metaline into nostril every 6 hours as needed [...] (Moderna) 05/18/2022 Pneumococcal Conjugate Vacci ne, 20-valent ([id number]) 04/12/2022 Seasonal Influenza, Quadriva lent Hd (Fluzone [...] 08/10/2023 1:30 PM EST Nurse Only Hematology/Oncology [facility] [address] [place] [address] [place], Nurse Hem Onc [facility] [address] [place] [address] Arrived 08/10/2023 3:00 PM EST Office Visit Family Practice [address] [facility] [address] [place] [phone] Sami Stephens, [facility] [address] 08/30/2023 11:15 AM EST Office Visit Dermatology [facility] [address] [place] [address] Nik Vieira MD 200 [facility] [place] [address] 08/31/2023 3:15 PM EST Procedure Only Urology, [facility] [address] [place] [address] Marbin Ivan MD 27 [facility] [address] [place] [address] 09/22/2023 1:15 PM EST Office Visit Hematology/Oncology [facility] [address] [place] [address] Rasheed Maldonado MD 200 [facility] [place] [address] 10/18/2023 10:00 AM EST Nurse Only Ancillary 65 [facility] [address] [place] [address] College, Nurse Annual Wellness Visit [address] [address] 11/18/2023 10:45 AM EDT Office [facility] 200 [facility] [place] [address] Rasheed Maldonado MD [address] [place] [address] 12/12/2023 9:00 AM EDT Office Visit Ophthalmology, [facility] [address] [facility] [place] [address] Ganesh Perez, DO [address] [place] [address] 03/12/2024 1:10 PM EDT Office Visit Dermatology [facility] [place] [address] [place] [address] Natasha Nova PA-C [address] [place] [address] 03/13/2024 1:30 PM EDT Office Visit Cardiology, [facility] [address] [facility] [place] [address] Angela Peter CRNP [address] [place] [phone] 05/17/2024 10:00 AM EDT Office Visit Sleep Disorders [facility] [address] [facility] [place] [phone] Kathrine Haile CRNP 132 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) 08/10/2023 12:22 PM EST Health Maintenance Due Date Last [...] this encounter Medical Devices Implanted Type [employer] Device Identifier Shelf Expiration Date Model / Serial / Lot Port Implant W/8f Poly Cath - [id number] Implanted:Qty: 1 on 05/12/2023 at [facility] CR BARD : PERIPHERAL VASCULAR [id number] 07/14/2024 [id number] / / [id number] documented as of this encounter Procedures Procedure Name Priority Date/Time Associated Diagnosis Comments DIFFERENTIAL, AUTOMATED STAT 08/10/2023 12:22 PM EST Melanoma of face (HCC) 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) CBC STAT 08/10/2023 12:22 PM EST Melanoma of face (HCC) 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) CBC STAT 08/10/2023 12:22 PM EST Melanoma of face (HCC) 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) documented in this encounter Results * DIFFERENTIAL, AUTOMATED (08/10/2023 12:22 PM EST) WBC 9.42 4.00 - 10.80 K/uL 08/10/2023 12:34 PM EST [facility] 56-02 Neutrophils % 62.9 40.0 - 75.0 % 08/10/2023 12:34 PM EST [facility] 56-02 Lymphocytes % 21.9 18.0 - 42.0 % 08/10/2023 12:34 PM EST [facility] 56-02 Monocytes % 10.8 1.0 - 11.0 % 08/10/2023 12:34 PM EST [facility] 56-02 Eosinophils % 3.7 0.0 - 6.0 % 08/10/2023 12:34 PM EST [facility] 56-02 Basophils % 0.7 0.0 - 2.0 % 08/10/2023 12:34 PM EST [facility] 56-02 Absolute Neutrophils 5.92 1.80 - 7.70 K/uL 08/10/2023 12:34 PM EST [facility] 56-02 Absolute Lymphocytes 2.06 1.00 - 4.80 K/ul 08/10/2023 12:34 PM EST [facility] 56-02 Absolute Monocytes 1.02 0.00 - 1.10 K/uL 08/10/2023 12:34 PM EST [facility] 56-02 Absolute Eosinophils 0.35 0.00 - 0.70 K/uL 08/10/2023 12:34 PM EST [facility] 56-02 Absolute Basophils 0.07 0.00 - 0.20 K/uL 08/10/2023 12:34 PM EST [facility] 56-02 Blood Venous blood specimen / Unknown Venipuncture / Unknown 08/10/2023 12:22 PM EST 08/10/2023 12:22 PM EST Rasheed Maldonado MD LAB BLOOD ORDERABLES [facility] 56 [address] [place], [place] [id number] * CBC (08/10/2023 12:22 PM EST) WBC 9.42 4.00 - 10.80 K/uL 08/10/2023 12:34 PM EST [facility] 56 RBC 4.70 4.50 - 5.25 M/uL 08/10/2023 12:34 PM EST [facility] 56 HGB 14.2 14.0 - 16.8 g/dL 08/10/2023 12:34 PM EST [facility] 56 HCT 43.2 40.0 - 48.4 % 08/10/2023 12:34 PM EST [facility] 56 MCV 91.9 82.0 - 99.5 fL 08/10/2023 12:34 PM EST [facility] 56 MCH 30.2 27.0 - 34.0 pg 08/10/2023 12:34 PM EST [facility] 56 MCHC 32.9 32.0 - 36.0 g/dL 08/10/2023 12:34 PM EST [facility] 56 RDW 14.9 11.5 - 15.5 % 08/10/2023 12:34 PM EST [facility] 56- PLT 177 140 - 400 K/uL 08/10/2023 12:34 PM EST [facility] 56 MPV 9.3 6.6 - 11.1 fL 08/10/2023 12:34 PM EST [facility] 56 Blood Venous blood specimen / Unknown Venipuncture / Unknown 08/10/2023 12:22 PM EST 08/10/2023 12:22 PM EST Rasheed Maldonado MD LAB BLOOD ORDERABLES [facility] [address] [place] [address] documented in this encounter Visit Diagnoses Diagnosis [...] Advance Directives occurred with: Patient Care Teams Cab Driver Relationship Specialty Start Date End Date Sami Stephens DO [address] [facility] [place] [address] PCP - General Internal Medicine 01/08/22 documented as of this encounter
--- OUTSIDE RECORDS SUMMARY | 2023-09-12 16:18 | External Medical Summary ---
Author Name Unknown Address Unknown Organization [id number]:[facility] [place] [address] Laboratory Report Ordering Provider Test Date Status EMANI CAMPBELL 08/10/2023 12:22:39 Final Observation Date Value Abnormality Reference (Units ) Status SYNC LEUKOCYTES IN BLOOD BY AUTOMATED COUNT 08/10/2023 12:22:39 9.42 4.00-10.80 (K/uL) Final Segs 08/10/2023 12:22:39 62.9 40.0-75.0 (%) Final Lymphs % 08/10/2023 12:22:39 21.9 18.0-42.0 (%) Final Monos 08/10/2023 12:22:39 10.8 1.0-11.0 (%) Final Eosinophils 08/10/2023 12:22:39 3.7 0.0-6.0 (%) Final Basos 08/10/2023 12:22:39 0.7 0.0-2.0 (%) Final Absolute Segs 08/10/2023 12:22:39 5.92 1.80-7.70 (K/uL) Final Lymphs, absolute 08/10/2023 12:22:39 2.06 1.00-4.80 (K/ul) Final Monos, Abs 08/10/2023 12:22:39 1.02 0.00-1.10 (K/uL) Final Eos, Abs 08/10/2023 12:22:39 0.35 0.00-0.70 (K/uL) Final Basos, Abs 08/10/2023 12:22:39 0.07 0.00-0.20 (K/uL) Final Performing Location [facility] [place] [address]
--- OUTSIDE RECORDS SUMMARY | 2023-09-12 16:18 | External Medical Summary ---
Author Name Unknown Address Unknown Organization [id number][facility] [place] [address] [place] [address] Laboratory Report Ordering Provider Test Date Status DANIEL JACK 08/17/2023 14:10:23 Final Observation Date Value Abnormality Reference (Units ) Status BUN 08/17/2023 14:10:23 10 6-20 (mg/dL) Final Creatinine 08/17/2023 14:10:23 1.0 0.6-1.2 (mg/dL) Final Glomerular filtration rate/1.73 sq M.predicted [Volume Rate/Area] in Serum, Plasma or Blood by Creatinine-based formula (CKD-EPI) 08/17/2023 14:10:23 75 >=60 (mL/min) Final eGFR is calculated based on the CKD-EPI 2020 equation SODIUM 08/17/2023 14:10:23 144 135-146 (m mol/L) Final Potassium 08/17/2023 14:10:23 3.6 3.5-5.1 (m mol/L) Final Cl 08/17/2023 14:10:23 101 98-107 (mm ol/L) Final CO2 08/17/2023 14:10:23 31 22-32 (mmo l/L) Final Anion gap 08/17/2023 14:10:23 12 7-15 (mmol /L) Final Glucose 08/17/2023 14:10:23 109 70-120 (mg /dL) Final Calcium 08/17/2023 14:10:23 9.3 8.4-10.2 ( mg/dL) Final Performing Location [facility] [place] [address] [place] [address]
--- OUTSIDE RECORDS SUMMARY | 2023-09-12 16:18 | External Medical Summary | Summary of Care ---
Author Name Unknown Organization [facility] Address [address] [address] Phone [phone] Care Team Providers Care Pet Adoption Counselor Name Role Phone Sami Stephens DO Primary Care Provider [phone] Reason for Visit * Reason Comments Follow Up Encounter Details Date Type Department Care Team (Late st Contact Info) Description 07/29/2023 2:30 PM EST Office Visit Cardiology, [facility] [address] [place] [address] Angela Peter CRNP [address] [facility] [place] [address] Nonrheumatic aortic valve stenosis*; SANDRINE on CPAP; Dyslipidemia, goal LDL below 130; HTN, goal below 130/80; Bradycardia; Dyslipidemia, goal LDL below 70 Allergies Active Allergy Reactions Criticality Noted Date Comments Pembrolizumab 07/01/2023 Penicillins 03/22/2023 Patient states had a reaction many years ago - that it was the "horse serum kind." documented as of this encounter (statuses as of 07/29/2023) Medications Medication Sig Dispensed Refills Start Date [...] TO ACCESSING. 30 g 1 05/04/2023 Active Sulfamethoxazole-Tr imethoprim 800-160 MG Oral Tablet (Bactrim DS)Indications:Lithia 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) [...] lab results. 14 Tablet 0 07/13/2023 Active Additional Information Patient not taking.Reported on 07/29/2023 Solifenacin Succinate 5 MG Oral Tablet (VESIcare) TAKE ONE TABLET BY MOUTH EVERY DAY NEEDED (URINARY FREQUENCY 90 Tablet 2 07/18/2023 07/17/2024 Active Saline Nasal [place] 0.65 % Nasal Solution ([place])Indications: Nasal drainage Administer 1 [place] into nostril every 6 hours as needed for Congestion. 0 07/19/2023 Active documented as of this encounter (statuses as of 07/29/2023) Active Problems Problem Noted Date Diagnosed Date [...] as of this encounter (statuses as of 07/29/2023) Resolved Problems Problem Noted Date Diagnosed Date Resolved Date Body mass index (BMI) of 45. 0 to 49.9 in adult 01/25/2022 07/28/2023 Overview: Per Obesity protocol documented as of this encounter (statuses as of 07/29/2023) Immunizations Name Administration Dates Next Due COVID-19 mRNA, LNP-s, No Pre serve, 2-Dose Series (Moderna) 09/23/2020,08/29/2020 COVID-19, mRNA, LNP-s, PF, B ooster, 100mcg/0.5mg (Moderna) 02/02/2022,06/08/2021 Covid-19, Mrna, Lnp-s, Pf, B ivalent, 50 Mcg, IM, 12 yrs and above (Moderna) 05/18/2022 Pneumococcal Conjugate Vacci ne, 20-valent ([id number]) 04/12/2022 Seasonal Influenza, Quadriva lent Hd (Fluzone [...] Sign Reading Time Taken Comments Blood Pressure 110/72 07/29/2023 2:16 PM EST Pulse 84 07/29/2023 2:16 PM EST Temperature - - Respiratory Rate 18 07/29/2023 2:16 PM EST Oxygen Saturation - - Inhaled Oxygen Concentration - - Weight 137 kg (302 lb) 07/29/2023 2:16 PM EST Height - - Body Mass Index 40.96 07/05/2023 2:01 PM EST documented in this encounter Progress Notes * Angela Peter CRNP - 07/29/2023 2:23 PM EST Subjective Ralf Larson is a 78 year old male. 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 He was last seen in the clinic approximately 5 months ago. He ended up hospitalized from 06/10 through 08/15 at [facility] with significant shortness of breath. This was primarily suspected to be due to a side effect of Keytruda causing pneumonitis. During that hospitalization his troponins were also significantly elevated which was felt to be due to demand ischemia. He continues to have issue with shortness of breath and poor energy level since hospital discharge.He completed a long steroid taper which was just completed 3 days ago and notices that his breathing initially was somewhat better but seems to be improving slowly. Has noticed on his home pulse oximeter meter that he is having some oxygenation decreases mostly during the night when using his CPAP and lying flat. Reporting that his oxygen saturations were reading in 88% range for most of the night. This improves when he gets up during the day and is sitting upright and more awake. Denies chest pain, SOB, palpitations, dizziness, syncope, edema, orthopnea and PND. No change in activity tolerance. Reports compliance with medications without any untoward side effects, or difficulty with affordability. 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 PM SM Vitamin D3 100 MCG (4000 UT) Oral Capsule (Cholecalciferol) Take by mouth 5,000 Units daily . CPAP every night at bedtime . Dulaglutide 1.5 MG/0.5ML Subcutaneous Solution Pen-injector (Walltik) INJECT 1.5MG UNDER THE SKINONCE WEEKLY (Patient [...] 1HR PRIOR TO ACCESSING. 30 g 1 Sulfamethoxazole-Trimethoprim 800-160 MG Oral Tablet (Bactrim DS) Take 1 Tablet by mouth once a dayon Tuesday, Tuesday, and Tuesday only. 30 Tablet 1 Omeprazole 20 MG Oral Capsule Delayed [...] (URINARY FREQUENCY 90 Tablet 2 Saline Nasal [place] 0.65 % Nasal Solution ([place]) Administer 1 [place] into nostril every 6 hours as needed for Congestion. predniSONE 5 MG Oral Tablet (Deltasone) Take 1 Tablet by mouth in the morning. Taper per Dr Maldonado based on lab results. (Patient not taking: Reported on 07/29/2023) 14 Tablet 0 No current facility-administered medications for this visit. Past Medical History: Diagnosis Date Gout Heart [...] performed by Marbin Ivan MD at OR [facility] REMOVAL OF PROSTATE (TURP) N/A 07/21/2022 TRANSURETHRAL RESECTION PROSTATE ELECTROSURGICAL performed by Marbin Ivan MD at OR [facility] Review of patient's allergies indicates: Allergen Reactions Keytruda [Pembrolizumab] Penicillins Patient states had a reaction many years ago - that it was the "horse serum kind." Family History Problem Relation Age of Onset Eye Problems Mother Cataract Cancer Mother Breast Heart Disorder Father Diabetes Father Asthma Brother Eye Problems Brother REtina Detachment Diabetes Grandmother (Maternal) Heart disease Grandfather (Maternal) Renal Hx No significant family history Lung Disorder No significant family history Family Status Relation Status Mo Fa Bro Alive MGMA MGFA PGMA PGFA No history (Not Specified) Social History Socioeconomic History Marital status: Spouse name: Not on file Number of children: Not on file Years of education: Not on file Highest education level: Not on file Occupational History Not on file Tobacco Use Smoking status: Never Passive exposure: Never Smokeless tobacco: Never Vaping Use Vaping Use: Never used Substance and Sexual Activity Alcohol use: Yes Comment: occasional Drug use: Never Sexual activity: Not Currently Other Topics Concern Not on file Social History Narrative Not on file Social Determinants of Health Financial Resource Strain: Not on file Food Insecurity: No Food Insecurity (07/19/2023) Hunger Vital Sign Worried About Running Out of Food in the Last Year: Never true Ran Out of Food in the Last Year: Never true Transportation Needs: Not on file Physical Activity: Not on file Stress: Not on file Social Connections: Not on file Intimate Partner Violence: Not on file Housing Stability: Not on file Review of Systems Constitutional: Positive for fatigue. Negative for activity change and unexpected weight change. Eyes: Negative for visual disturbance. Respiratory: Positive for shortness of breath. Negative for wheezing. Cardiovascular: Negative for chest pain, palpitations and leg swelling. Gastrointestinal: Negative for blood in stool, constipation, diarrhea, nausea and vomiting. Genitourinary: Negative for hematuria. Musculoskeletal: Negative for arthralgias and gait problem. Skin: Negative for wound. Neurological: Negative for dizziness and syncope. Objective BP 110/72 | Pulse 84 | Resp 18 | Wt (!) 137 kg (302 lb) | BMI 40.96 kg/m | BSA 2.64 m Physical Exam Vitals and nursing note reviewed. Constitutional: General: He is awake. He is not in acute distress. Appearance: Normal appearance. He is well-developed. He is not ill-appearing. HENT: Head: Normocephalic and atraumatic. Eyes: General: No scleral icterus. Extraocular Movements: Extraocular movements intact. Conjunctiva/sclera: Conjunctivae normal. Pupils: Pupils are equal, round, and reactive to light. Neck: Thyroid: No thyromegaly. Vascular: No carotid bruit or JVD. Cardiovascular: Rate and Rhythm: Normal rate and regular rhythm. Pulses: Normal pulses. Carotid pulses are 2+ on the right side and 2+ on the left side. Radial pulses are 2+ on the right side and 2+ on the left side. Posterior tibial pulses are 2+ on the right side and 2+ on the left side. Heart sounds: S1 normal and S2 normal. Murmur heard. Pulmonary: Effort: Pulmonary effort is normal. No respiratory distress. Breath sounds: Normal breath sounds. No wheezing, rhonchi or rales. Abdominal: General: Bowel sounds are normal. There is no distension. Palpations: Abdomen is soft. There is no mass. Tenderness: There is no abdominal tenderness. Musculoskeletal: General: No swelling. Cervical back: Neck supple. Right lower leg: No edema. Left lower leg: No edema. Skin: General: Skin is warm and dry. Capillary Refill: Capillary refill takes less than 2 seconds. Findings: No rash or wound. Neurological: General: No focal deficit present. Mental Status: He is alert and oriented to person, place, and time. Psychiatric: Attention and Perception: Attention and perception normal. Behavior: Behavior is cooperative. Judgment: Judgment normal. Results RESULTS: Zio Patch: 05/26/2022: CONCLUSIONS: Final Interpretation 1. Predominant rhythm sinus with average HR 59bpm; slowest HR 40bpm at 8:13am consistent with sinusbradycadria; fastest HR 160bpm at 1:10am consistent with NSVT. 2. Frequent APCs with a few brief runs of PAT; the longest 20 beats; average HR 105bpm (65-139bpm). 3. Frequent PVCs; with 2 brief runs of NSVT; the longest was 7 beats. 4. The patient triggered events 5 times whil in SR or with ectopy. ECGS: 06/10/23 at [facility] NSR, 1st Deg AV Block 80 bpm QTc 426 ms 05/26/2022: SB 53bpm 1st degree AV block APC Nonspecific ST abnormalities 04/29/2022: SR 66bpm 1st degree AV block APC 11/11/2021: SB 57bpm 1st degree AV Block SA Echocardiogram: 06/07/23 The examination is adequate to evaluate the referral indication. Images are technically limited secondary to body habitus and upright position The left ventricular cavity size is normal. The LV wall thickness is moderately increased (concentric). The left ventricular wall motion is normal. The qualitative LV ejection fraction is 65-69% (normal). The left ventricular diastolic function is mildly abnormal (grade I). The aortic valve is moderately calcified. Moderate to borderline severe aortic valve stenosis is present. There is mild aortic insufficiency The aortic root and proximal ascending aorta are normal sized. There is moderate mitral annular calcification. Compared to prior study of May 04, 2022, there is no significant change. 05/04/2022: The left ventricular cavity size is normal. The LV wall thickness is moderately increased (concentric). The left ventricular wall motion is normal. The qualitative LV ejection fraction is 55-59% (normal). The left ventricular diastolic function is mildly abnormal (grade I). The aortic valve is moderately calcified. Moderate to borderline severe aortic valve stenosis is present. There is no aortic insufficiency There is mild mitral annular calcification. The aortic root and proximal ascending aorta are normal sized. 12/12/2020: EF 60-65% Mild LVH LA borderline dilated Moderate Labs Latest Reference Range & Units 07/06/23 11:39 07/13/23 11:37 07/19/23 13:46 Sodium 135 - 146 mmol/L 140 141 141 Potassium 3.5 - 5.1 mmol/L 3.6 3.7 4.2 Chloride 98 - 107 mmol/L 99 99 100 CO2 22 - 32 mmol/L 32 31 27 BUN 6 - 20 mg/dL 16 13 13 Creatinine 0.6 - 1.2 mg/dL 1.2 1.1 1.3 (H) Estimated Glomerular Filtration Rate >=60 mL/min 66 72 58 (L) Anion Gap 7 - 15 mmol/L 9 11 14 Glucose 70 - 120 mg/dL 159 (H) 160 (H) 131 (H) Calcium 8.4 - 10.2 mg/dL 9.3 9.2 9.8 Protein 6.0 - 8.3 g/dL 6.4 6.4 6.3 TSH 0.27 - 4.20 uIU/mL 2.87 TSH WITH FREE T4 IF INDICATED Rpt CBC Rpt ! Rpt ! Rpt ! CBC WITH WBC DIFFERENTIAL Rpt ! Rpt ! Rpt ! WBC 4.00 - 10.80 K/uL 12.79 (H) 11.01 (H) 10.15 HGB 14.0 - 16.8 g/dL 15.7 15.3 15.8 HCT 40.0 - 48.4 % 48.0 47.5 49.4 (H) MCV 82.0 - 99.5 fL 94.3 95.0 95.0 PLT 140 - 400 K/uL 175 155 187 Absolute Neutrophils 1.80 - 7.70 K/uL 9.54 (H) 9.58 (H) 7.78 (H) Absolute Lymphocytes 1.00 - 4.80 K/ul 2.03 0.88 (L) 1.20 Absolute Monocytes 0.00 - 1.10 K/uL 1.03 0.22 0.86 Absolute Eosinophils 0.00 - 0.70 K/uL 0.15 0.22 0.17 Absolute Basophils 0.00 - 0.20 K/uL 0.04 0.09 Absolute Basophils 0.00 - 0.20 K/uL 0.11 Albumin 3.8 - 5.0 g/dL 3.7 (L) 3.7 (L) 4.2 AST 10 - 50 U/L 59 (H) 49 39 ALT 10 - 50 U/L 93 (H) 63 (H) 50 Alkaline Phosphatase 35 - 130 U/L 76 73 76 Bilirubin, Total <=1.2 mg/dL 0.3 0.5 0.6 Latest Reference Range & Units 10/18/22 14:04 Triglycerides <=174 mg/dL 119 Cholesterol <200 mg/dL 174 Non-HDL Cholesterol <=159 mg/dL 128 HDL Cholesterol >39 mg/dL 46 LDL Cholesterol <=129 mg/dL 104 Latest Reference Range & Units 05/27/23 12:25 07/19/23 13:46 Hemoglobin A1C 4.0 - 5.6 % 6.3 (H) TSH 0.27 - 4.20 uIU/mL 5.01 (H) 2.87 TSH WITH FREE T4 IF INDICATED Rpt ! 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 Plan: -HR and BP well controlled -remains significantly short of breath with minimal activity since hospital discharge for pneumonitis in June, however symptoms are improving slowly -energy levels remains depleted -he just finished steroids 3 days prior to this visit -reviewed his echocardiogram which indicated moderate to severe aortic stenosis with gradients thatare unchanged from the 1 completed approximately 1 year ago -continue aspirin, atorvastatin, losartan, metoprolol, and HCTZ -the nocturnal hypoxia I suspect is more related to his underlying lung condition and SANDRINE, I have encouraged him to further discuss this with his PCP and sleep medicine; may need to consider further testing in regard to his lung function or nocturnal oxygen -Educated patient on caution with change in positions to minimize symptomatic orthostatic hypotension -Discussed importance of diet & exercise with the patient. -Discussed with patient subtle changes in how they are feeling or completing daily activities to contact us sooner; don't wait days or weeks. DISPOSITION: Follow up 6 months or if symptoms worsen/fail to improve. All questions were answered to the patients satisfaction. Patient advised to report to ED with any and all emergencies. The patient agrees to the above plan and will call with additional questions or concerns. I spent a total of 45 minutes on the date of service in preparation, delivery, and documentation ofthe care provided to Ralf Larson excluding any time spent in the performance of separately billed services. OLEG Cruz Cardiology, [facility] [address] [place] [address] This chart was completed in part utilizing [employer] Speech Voice Recognition Software. Grammatical errors, random word insertions, pronoun errors, and incomplete sentences are an occasional consequence of this system due to software limitations, ambient noise, and hardware issues. Any formal questions or concerns about the content, text, or information contained within the body of this dictation should be directly addressed to the provider for clarification. documented in this encounter Nursing Notes * Helena Bell LPN - 07/29/2023 2:13 PM EST Examination Room: 10 Name: Ralf Larson Date of : (1945) Reason for Visit: Follow up Interim Hospitalization(s): [facility] ER 06/26 Problems/Concerns: increased SOB noted. Chest Pain/SOB: Denies chest pain at this time [facility] is a way you can talk to your provider online through e-mail. Would you like to sign up? I can activate it for you? ALREADY ACTIVE Patient was instructed to not get up on the exam table until directed and assisted by their provider; patient is to remain seated in the chair/ wheelchair/ exam table for fall prevention and safety reasons. Patient is aware to have assistance to step down off exam table with personnel. Patient voiced full comprehension of instructions. documented in this encounter Plan of Treatment Upcoming Encounters Date Type Department Care Team (Late st Contact Info) Description 08/01/2023 3:40 PM EST Office Visit Family Practice [address] [place] [address] [facility] [phone] Sami Stephens [facility] [address] [facility] [address] 08/10/2023 1:00 PM EST [facility] [address] [place] [id number] [facility] [address] [place] [address] 08/10/2023 1:30 PM EST Nurse Only Hematology/Oncology [facility] [address] [place], [place] [address] [place], Nurse Hem Onc [address] [place], [place] [address] 08/10/2023 3:00 PM EST Office Visit Family Practice [address] [facility] [address] [place] [address] Sami Stephens, [address] [place] [address] 08/30/2023 11:15 AM EST Office Visit Dermatology [facility] [address] [place], [place] [address] Nik Vieira MD [address] [place], [place] [address] 08/31/2023 3:15 PM EST Procedure Only Urology, [facility] [address] [place] [address] Marbin Ivan MD [address] [facility] [address] [place] [address] 09/22/2023 1:15 PM EST Office Visit Hematology/Oncology [facility] [address] [place], [place] [address] Rasheed Maldonado MD [address] [place], [place] [address] 10/18/2023 10:00 AM EST Nurse Only Ancillary [address] [facility] [address] [place] [address] College, Nurse Annual Wellness Visit [address] [place] [address] 11/18/2023 10:45 AM EDT Office Visit Hematology/Oncology [facility] [address] [facility] [place], [place] [address] Rasheed Maldonado MD [address] [facility] [place] [address] 03/12/2024 1:10 PM EDT Office Visit Dermatology [facility], [place] [address] [place] [address] Natasha Nova PA-C [address] [place] [address] 03/13/2024 1:30 PM EDT Office Visit Cardiology, [facility] [address] [place] [address] Angela Peter CRNP [address] [place] [phone] 05/17/2024 10:00 AM EDT Office Visit [facility] [phone] Kath[facility]ile [facility] [address] [facility] [address] Health Maintenance Due Date Last Done Comments [...] this encounter Medical Devices Implanted Type Area Rug Layer Device Identifier Shelf Expiration Date Model / Serial / Lot Port Implant W/8f Poly Cath - [id number] Implanted:Qty: 1 on 05/12/2023 at [facility] BARD : PERIPHERAL VASCULAR [id number] 07/14/2024 [id number] / / [id number] documented as of this encounter Visit Diagnoses Diagnosis Nonrheumatic aortic valve stenosis- Primary Aortic valve disorders SANDRINE on CPAP Obstructive sleep apnea (adult) (pediatric) Dyslipidemia, goal LDL below 130 Other and unspecified hyperlipidemia HTN, goal below 130/80 Unspecified essential hypertension Bradycardia Other specified cardiac dysrhythmias Dyslipidemia, goal LDL below 70 Other and unspecified hyperlipidemia documented in this [...] Advance Directives occurred with: Patient Care Teams Pet Adoption Counselor Relationship Specialty Start Date End Date Sami Stephens DO [address] [place] [address] PCP - General Internal Medicine 01/08/22 documented as of this encounter
--- OUTSIDE RECORDS SUMMARY | 2023-09-12 16:18 | External Medical Summary | Summary of Care ---
Author Name Unknown Organization [facility] Address [address] [place] [address] Phone [phone] Care Team Providers Care Brush Sander Name Role Phone Sami Stephens DO Primary Care Provider [phone] Reason for Visit * Reason Onset Date Comments Information 08/17/202308/17 Encounter Details Date Type Department Care Team (Late st Contact Info) Description 08/17/2023 Telephone Family Practice 65 [facility] [place] [address] [place] [address] Sami Stephens DO [address] [place] [address] Information (08/17) Allergies Active Allergy Reactions Criticality Noted Date [...] Tablet 2 07/18/2023 07/17/2024 Active Saline Nasal [place] 0.65 % Nasal Solution ([place])Indications: Nasal drainage Administer 1 [place] into nostril every 6 hours as needed [...] (Moderna) 05/18/2022 Pneumococcal Conjugate Vacci ne, 20-valent ([id number]) 04/12/2022 Seasonal Influenza, Quadriva lent Hd (Fluzone [...] Encounter - Tracy Hsieh RPh - 08/17/2023 1:22 PM EST Replied to patient's MyG message. Jo-Ann Hogan, BCACP Clinical Pharmacist [address] [facility] 08/17/2023, 1:22 PM Ph. [phone] * Telephone Encounter - Jenae Garrett LPN - 08/17/2023 9:28 AM EST Patient states he doesn't think he has ever had an hgba1c of greater than 6.5% Patient is questioning if he needs another medication. Would like to speak to our pharmacist please. Thank you * Telephone Encounter - Jenae Garrett LPN - 08/17/2023 9:13 AM EST Called, left message for patient to return call. Thank you * Telephone Encounter - Tracy Hsieh RPh - 08/17/2023 9:04 AM EST Noted. Will need to see if patient ever diagnosed with diabetes, or else not eligible for Trulicityunless A1c > 6.5% Jo-Ann Hogan, BCACP Clinical Pharmacist [address] [facility] - [facility] 08/17/2023, 9:04 AM Ph. [phone] * Telephone Encounter - Gerry Marivel, LPN - 08/17/2023 8:41 AM EST Sapna calling from [facility] states that trulicity pen has been denied. Number [phone] Will send to pharmacy and pcp, once aware will contact patient Please return to nurse pool, nursing will contact cm. documented in this encounter Plan of Treatment Upcoming Encounters Date Type Department Care Team (Late st Contact Info) Description 08/30/2023 10:40 AM EST Laboratory Laboratory [facility] [place] [address] [place] [phone] [place], Lab [facility] 200 [facility] [place] [address] 08/30/2023 11:15 AM EST Office Visit Dermatology [facility] [place] [address] [place] [address] Nik Vieira MD [address] [place] [address] 08/30/2023 11:45 AM EST Nurse Only Hematology/Oncology [facility] [address] [place] [address] [place], Nurse Hem Onc [facility] 200 [facility] [place] [address] 08/31/2023 3:15 PM EST Procedure Only Urology, [facility] 132 [facility] [place] [address] Marbin Ivan MD 27 [facility] [address] [place] [address] 09/22/2023 1:15 PM EST Office Visit Hematology/Oncology [facility] [address] [place] [address] Rasheed Maldonado MD 200 [facility] [place] [address] 10/18/2023 10:00 AM EST Nurse Only Ancillary 65 [facility] 293 [place] [address] College, Nurse Annual Wellness Visit [address] [place] [address] 11/18/2023 10:45 AM EDT Office Visit Hematology/Oncology [facility] 200 [facility] [place], [place] [address] Rasheed Maldonado MD 200 [place] [address] 11/29/2023 3:00 PM EDT Office Visit Family Practice 65 [facility] 293 [place] [address] Sami Stephens, 293 [place] [address] 12/12/2023 9:00 AM EDT Office Visit Ophthalmology, [facility] 132 [place] [address] Ganesh Perez, DO 16 [place] [address] 03/12/2024 1:10 PM EDT Office Visit Dermatology [facility] [place] [address] [facility] [address] Natasha Nova PA-C 3[address] [place] [address] 03/13/2024 1:30 PM EDT Office Visit [facility], [facility] [address] Angela Peter CRNP [address] [place] [address] [place] [phone] 05/17/2024 10:00 AM EDT Office Visit Sleep Disorders Ctr [facility] [address] [place] [address] Kathrine Haile CRNP [address] [place] [address] Health Maintenance Due Date Last Done Comments [...] this encounter Medical Devices Implanted Type Area Well Cleaner Device Identifier Shelf Expiration Date Model / Serial / Lot Port Implant W/8f Poly Cath - [id number] Implanted:Qty: 1 on 05/12/2023 at [facility] [employer] : PERIPHERAL VASCULAR [id number] 07/14/2024 [id number] / / [id number] documented as of this encounter Advance Directives [...] Advance Directives occurred with: Patient Care Teams Brush Sander Relationship Specialty Start Date End Date Sami Stephens DO [address] [place] [address] PCP - General Internal Medicine 01/08/22 documented as of this encounter
--- OUTSIDE RECORDS SUMMARY | 2023-09-12 16:18 | External Medical Summary ---
Author Name Unknown Address Unknown Organization K09:[facility] [address] [place] [address] Laboratory Report Ordering Provider Test Date Status EMANI CAMPBELL 08/10/2023 12:22:39 Final Observation Date Value Abnormality Reference (Units ) Status BUN 08/10/2023 12:22:39 13 6-20 (mg/dL) Final Creatinine 08/10/2023 12:22:39 1.2 0.6-1.2 (mg/dL) Final Glomerular filtration rate/1.73 sq M.predicted [Volume Rate/Area] in Serum, Plasma or Blood by Creatinine-based formula (CKD-EPI) 08/10/2023 12:22:39 60 >=60 (mL/min) Final eGFR is calculated based on the CKD-EPI 2020 equation SODIUM 08/10/2023 12:22:39 143 135-146 (m mol/L) Final Potassium 08/10/2023 12:22:39 3.0 Below low normal 3.5 -5.1 (mmol/L) Final Cl 08/10/2023 12:22:39 99 98-107 (mm ol/L) Final CO2 08/10/2023 12:22:39 33 Above high normal 22 -32 (mmol/L) Final Anion gap 08/10/2023 12:22:39 11 7-15 (mmol /L) Final Glucose 08/10/2023 12:22:39 116 70-120 (mg /dL) Final Albumin 08/10/2023 12:22:39 4.0 3.8-5.0 (g /dL) Final AST (Aspartate aminotransferase) 08/10/2023 12:22:39 31 10-50 (U/L) Fin al Alk Phos 08/10/2023 12:22:39 78 35-130 (U/ L) Final Bilirubin, Total 08/10/2023 12:22:39 0.5 <=1 .2 (mg/dL) Final Calcium 08/10/2023 12:22:39 9.6 8.4-10.2 ( mg/dL) Final Protein 08/10/2023 12:22:39 6.8 6.0-8.3 (g /dL) Final ALT (Alanine aminotransferase) 08/10/2023 12:22:39 25 10-50 (U/L) Hardik hopkins Performing Location [facility] [address] [place] [address]
--- OUTSIDE RECORDS SUMMARY | 2023-09-12 16:19 | External Medical Summary | Summary of Care ---
Author Name Unknown Organization [facility] Address [address] [place] [address] Phone [phone] Care Team Providers Care Wash Operator Name Role Phone Sami Stephens DO Primary Care Provider [phone] Reason for Referral * Evaluate & Treat - Unlimited Visits (Within 30 days (routine)) - Authorized Specialty Diagnoses / Procedures Referred By Katie agrber Referred To Contact Plastic Surgery Diagnoses Disorder of eyelid Sami Stephens DO [address] [place] [address] Referral ID Status Reason Start Date Expiration Date Visits Requested Visits Authorized [id number] Authorized Specialty Services Required 3 999 999 Question Answer Referral Priority Within 30 days (routine) Where should this appointment be scheduled? [facility] What condition is the patient being seen for? Other conditions - Ocular Plastics Comments Current Patient BMI: There is no height or weight on file to calculate BMI. OCULAR PLASTIC SURGEON Reason for Visit * Reason Onset Date Comments Appointment 07/25/202307/25 Encounter Details Date Type Department Care Team (Late st Contact Info) Description 07/25/2023 Telephone Family Practice 65 [facility] [place] [address] [place] [phone] Sami Stephens DO [address] [place], [place] [phone] Appointment (07/25 ) Allergies Active Allergy Reactions Criticality Noted Date Comments Pembrolizumab 07/01/2023 Penicillins 03/22/2023 Patient states had a reaction many years ago - that it was the "horse serum kind." documented as of this encounter (statuses as of 07/25/2023) Medications Medication Sig Dispensed Refills Start Date [...] MOUTH EVERY MORNING 100 Tablet 3 10/19/2022 10/19/2023 Active Additional Information Patient not taking.Reported on [...] Sulfamethoxazole-Tr imethoprim 800-160 MG Oral Tablet (Bactrim DS)Indications:[place] 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) [...] Tablet 2 07/18/2023 07/17/2024 Active Saline Nasal [place] 0.65 % Nasal Solution ([place])Indications: Nasal drainage Administer 1 [place] into nostril every 6 hours as needed for Congestion. 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 04/28/2023 Encounter for antineoplastic immunotherapy 04/28 Melanoma of face 03/14/2023 Essential tremor 07/13/2022 Bradycardia, sinus 06/09/2022 1st degree AV block 06/09/2022 Sinus pause 06/09/2022 Moderate to severe aortic stenosis 04/28/2022 SCOTT (generalized anxiety disorder) 04/12/2022 Body mass index (BMI) of 45.0 to 49.9 in adult 0 01/25/2022 Overview: Per Obesity protocol Prediabetes 01/25/2022 Overview: Per Prediabetes protocol SANDRINE on CPAP 01/04/2022 Morbid obesity due to excess calories 04/07/2021 Gouty arthropathy 04/07/2021 Dyslipidemia, goal LDL below 70 04/07/2021 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 HTN, goal below 150/90 04/07/2021 Vitamin D deficiency 04/07/2021 documented as of this encounter (statuses as of 07/25/2023) Immunizations Name Administration Dates Next Due COVID-19 mRNA, LNP-s, No Pre serve, 2-Dose Series (Moderna) 09/23/2020,08/29/2020 COVID-19, mRNA, LNP-s, PF, B ooster, 100mcg/0.5mg (Moderna) 02/02/2022,06/08/2021 Covid-19, Mrna, Lnp-s, Pf, B ivalent, 50 Mcg, IM, 12 yrs and above (Moderna) 05/18/2022 Pneumococcal Conjugate Vacci ne, 20-valent ([id number]) 04/12/2022 Seasonal Influenza, Quadriva lent Hd (Fluzone [...] Telephone Encounter - Jenae Garrett LPN - 07/25/2023 4:58 PM EST Called, left message for patient to return call. Sent my Crescentrating message. Thank you * Telephone Encounter - Sami Stephens DO - 07/25/2023 4:54 PM EST Continue daily potassium * Telephone Encounter - Jenae Garrett LPN - 07/25/2023 3:34 PM EST Patient questions if he should continue to take potassium daily? Cmp done 07/19 * Telephone Encounter - Gerry Marivel, LPN - 07/25/2023 3:33 PM EST Scheduled. Thank you * Telephone Encounter - Gerry Marivel, LPN - 07/25/2023 3:25 PM EST Called, left message for patient to return call. Thank you * Telephone Encounter - Kathi Renteria OSA - 07/25/2023 3:06 PM EST Returned call * Telephone Encounter - Jenae Garrett LPN - 07/25/2023 1:50 PM EST Called, left message for patient to return call. Thank you * Telephone Encounter - Sami Stephens DO - 07/25/2023 12:14 PM EST We can review at next visit or patient can be scheduled sooner to discuss. Referral signed * Telephone Encounter - Jenae Garrett LPN - 07/25/2023 10:19 AM EST Pended. * Telephone Encounter - Kathi Renteria OSA - 07/25/2023 9:39 AM EST Received call from [facility] They do not do the procedure he needs Needs referred to Ocular Plastics documented in this encounter Plan of Treatment Upcoming Encounters Date Type Department Care Team (Late st Contact Info) Description 07/29/2023 2:30 PM EST Office Visit Cardiology, [facility] [address] [facility] [place] [address] Angela Peter, OLEG [address] [place] [phone] 08/01/2023 3:40 PM EST Office Visit Family Practice 65 [facility] 293 [place] [phone] Sami Stephens, 293 [facility], [place] [address] 08/10/2023 1:00 PM EST Laboratory Laboratory [facility] [address] [place] [phone] [place], Lab [address]en[address] 200 [facility] [place] [address] 08/10/2023 1:30 PM EST Nurse Only Hematology/Oncology [facility] [address] [place] [address] [place], Nurse Hem Onc [facility] 200 [facility] [place] [address] 08/10/2023 3:00 PM EST Office Visit Family Practice 65 [facility] 293 [facility], [place] [phone] Sami Stephens, 293 [facility], [place] [address] 08/30/2023 11:15 AM EST Office Visit Dermatology [facility] [address] [place] [address] Nik Vieira MD [address] [place] [address] 08/31/2023 3:15 PM EST Procedure Only Urology, [facility] 132 [facility] [place] [address] Marbin Ivan MD 27 [facility] [address] [place] [address] 09/22/2023 1:15 PM EST Office Visit Hematology/Oncology [facility] 200 [facility] [place] [address] Rasheed Maldonado MD 200 [facility] [place] [address] 10/18/2023 10:00 AM EST Nurse Only Ancillary 65 [facility] 293 [place] [address] College, Nurse Annual Wellness Visit [address] [place] [address] 11/18/2023 10:45 AM EDT Office Visit Hematology/Oncology [facility] 200 [facility] [place] [address] Rasheed Maldonado MD 200 [facility], [place] [address] 03/12/2024 1:10 PM EDT Office Visit Dermatology [facility] [address] [place] [address] Natasha Nova PA-C 3228 [facility] [place] [address] 03/13/2024 1:30 PM EDT Office Visit Cardiology, [facility] 132 [facility] [place] [address] Angela Peter CRNP 400 [facility] [place] [address] 05/17/2024 10:00 AM EDT Office Visit Sleep Disorders Ctr [facility] [address] [place] [address] Kathrine Haile CRNP [address] [place] [address] Scheduled Referrals Name Type Priority Associated Diagnoses Orde r Schedule PLASTIC SURGERY REFERRAL OP Referral Within 30 days (routine) Disorder of eyelid Ordered: 07/25/2023 Health Maintenance Due Date Last Done Comments [...] this encounter Medical Devices Implanted Type Area Jogger Operator Device Identifier Shelf Expiration Date Model / Serial / Lot Port Implant W/8f Poly Cath - [id number] Implanted:Qty: 1 on 05/12/2023 at [facility] : PERIPHERAL VASCULAR [id number] 07/14/2024 [id number] / / [id number] documented as of this encounter Visit Diagnoses Diagnosis Disorder of eyelid- Primary Unspecified disorder of eyelid documented in this encounter Advance Directives Latest [...] Advance Directives occurred with: Patient Care Teams Wash Operator Relationship Specialty Start Date End Date Sami Stephens DO [address] [place] [address] PCP - General Internal Medicine 01/08/22 documented as of this encounter
--- OUTSIDE RECORDS SUMMARY | 2023-09-12 16:19 | External Medical Summary | Summary of Care ---
Author Name Unknown Organization [facility] Address [address] [place] [address] Phone [phone] Care Team Providers Care Probate Clerk Name Role Phone Sami Stephens DO Primary Care Provider [phone] Reason for Referral * Evaluate & Treat - Unlimited Visits (Within 30 days (routine)) - Authorized Specialty Diagnoses / Procedures Referred By Katie garber Referred To Contact Plastic Surgery Diagnoses Disorder of eyelid Sami Stephens DO [address] [place] [address] Referral ID Status Reason Start Date Expiration Date Visits Requested Visits Authorized [id number] Authorized Specialty Services Required 3 999 999 [...] Info) Description 07/25/2023 Telephone Family Practice 65 [facility] [place] [address] [place] [phone] Sami Stephens DO [address] [place], [place] [phone] Appointment (07/25 ) Allergies Active Allergy Reactions [...] Sulfamethoxazole-Tr imethoprim 800-160 MG Oral Tablet (Bactrim DS)Indications:[place] 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) [...] Tablet 2 07/18/2023 07/17/2024 Active Saline Nasal [place] 0.65 % Nasal Solution ([place])Indications: Nasal drainage Administer 1 [place] into nostril every 6 hours as needed [...] (Moderna) 05/18/2022 Pneumococcal Conjugate Vacci ne, 20-valent ([id number]) 04/12/2022 Seasonal Influenza, Quadriva lent Hd (Fluzone [...] Cmp done 07/19 * Telephone Encounter - Jenae Garrett LPN - 07/25/2023 3:33 PM EST Scheduled. Thank you * Telephone Encounter - Jenae Garrett LPN - 07/25/2023 3:25 PM EST Called, [...] EST Pended. * Telephone Encounter - Kathi Renetria OSA - 07/25/2023 9:39 AM EST Received call from [facility] They do not do the procedure he needs Needs referred to Ocular Plastics documented in this encounter Plan of Treatment Upcoming Encounters Date Type Department Care Team (Late st Contact Info) Description 07/29/2023 2:30 PM EST Office Visit Cardiology, [facility] 132 [facility] [place] [address] Angela Peter CRNP 400 [facility] [place] [phone] 08/01/2023 3:40 PM EST Office Visit Family Practice [address] [place] [address] 293 [facility], [place] [address] Sami Stephens, DO 293 [place] [address] 08/10/2023 1:00 PM EST Laboratory Laboratory [facility] [address] [place], [place] [phone] [place], Lab [facility] [address] [place] [address] 08/10/2023 1:30 PM EST Nurse Only Hematology/Oncology [facility] [address] [place], [place] [address] [place], Nurse Hem Onc [facility] [address] [place], [place] [address] 08/10/2023 3:00 PM EST Office Visit Family Practice [address] [place] [address] 293 [facility] [place] [address] Sami Stephens, DO 293 [place] [address] 08/30/2023 11:15 AM EST Office Visit Dermatology [facility] [address] [place], [place] [address] Nik Vieira MD [address] [place], [place] [address] 08/31/2023 3:15 PM EST Procedure Only Urology, [facility] 132 [place] [address] Marbin Ivan MD 27 [facility] [address] [place] [address] 09/22/2023 1:15 PM EST Office Visit Hematology/Oncology [facility] [address] [place] [address] Rasheed Maldonado MD [address] [place] [address] 10/18/2023 10:00 AM EST Nurse Only Ancillary 65 [facility] [place] 293 [place] [address] College, Nurse Annual Wellness Visit [address] [place] [address] 11/18/2023 10:45 AM EDT Office [facility] [address] [place] [address] Rasheed Maldonado MD 200 [facility] [place] [address] 03/12/2024 1:10 PM EDT Office Visit Dermatology [facility] [address] [place] [address] Natasha Nova PA-C 3[address] [place] [address] 03/13/2024 1:30 PM EDT Office Visit Cardiology, [facility] 132 [facility] [place] [address] Angela Peter CRNP 400 [facility] [phone] 05/17/2024 10:00 AM EDT Office Visit Sleep Disorders Ctr [facility] 132 [facility] [place] [phone] Kathrine Haile CRNP 132 [facility] [place] [address] Scheduled Referrals Name Type Priority Associated Diagnoses [...] this encounter Medical Devices Implanted Type Area Vice President Digital Strategist Device Identifier Shelf Expiration Date Model / Serial / Lot Port Implant W/8f Poly Cath - [id number] Implanted:Qty: 1 on 05/12/2023 at [facility] : PERIPHERAL VASCULAR [id number] 07/14/2024 [id number] / / [id number] documented as of this encounter Visit Diagnoses [...] Advance Directives occurred with: Patient Care Teams Probate Clerk Relationship Specialty Start Date End Date Sami Stephens DO [address] [place] [address] PCP - General Internal Medicine 01/08/22 documented as of this encounter
--- OUTSIDE RECORDS SUMMARY | 2023-09-12 16:19 | External Medical Summary | Summary of Care ---
Author Name Unknown Organization [facility] Address [address] [place] [address] Phone [phone] Care Team Providers Care Social Worker Delinquency Prevention Name Role Phone Sami Stephens DO Primary Care Provider [phone] Reason for Visit * Reason Onset Date Comments Other 07/19/2023 Encounter Details Date Type Department Care Team (Late st Contact Info) Description 07/19/2023 Telephone Family Practice [address] [facility] [place] [address] Sami Stephens DO 293 [place] [address] Other Allergies Active Allergy Reactions Criticality Noted Date Comments Pembrolizumab 07/01/2023 Penicillins 03/22/2023 Patient states had a reaction many years ago - that it was the "horse serum kind." documented as of this encounter (statuses as of 07/22/2023) Medications Medication Sig Dispensed Refills Start Date [...] Sulfamethoxazole-Tr imethoprim 800-160 MG Oral Tablet (Bactrim DS)Indications:[place] 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) [...] Tablet 2 07/18/2023 07/17/2024 Active Saline Nasal [place] 0.65 % Nasal Solution (Carmichaels)Indications: Nasal drainage Administer 1 [place] into nostril every 6 hours as needed for Congestion. 0 07/19/2023 Active documented as of this encounter (statuses as of 07/22/2023) Active Problems Problem Noted Date Diagnosed Date [...] as of this encounter (statuses as of 07/22/2023) Immunizations Name Administration Dates Next Due COVID-19 mRNA, LNP-s, No Pre serve, 2-Dose Series (Moderna) 09/23/2020,08/29/2020 COVID-19, mRNA, LNP-s, PF, B ooster, 100mcg/0.5mg (Moderna) 02/02/2022,06/08/2021 Covid-19, Mrna, Lnp-s, Pf, B ivalent, 50 Mcg, IM, 12 yrs and above (Moderna) 05/18/2022 Pneumococcal Conjugate Vacci ne, 20-valent ([id number]) 04/12/2022 Seasonal Influenza, Quadriva lent Hd (Fluzone [...] encounter Miscellaneous Notes * Telephone Encounter - [facility] Certified Master Safe Technician - 07/22/2023 11:28 AM EST Received voicemail from patient returning my call. Called and LVM for patient to return my call to schedule assessments. * Telephone Encounter - [facility] Certified Master Safe Technician - 07/21/2023 2:36 PM EST Called and LVM for patient to return my call to schedule balance and fitness assessment. * Telephone Encounter - Kathi Hennessy OSA - 07/19/2023 1:50 PM EST Please contact pt to set up a balance/strength assessment . He is asking to do this after the holidays. Please call him at [phone] documented in this encounter Plan of Treatment Upcoming Encounters Date Type Department Care Team (Late st Contact Info) Description 07/25/2023 2:00 PM EST Office Visit Cardiology, [facility] [address] [place] [address] Francisco Sharma DO [address] [place] [address] 08/10/2023 1:00 PM EST Laboratory Laboratory [facility] [address] [place] [address] [place], Lab Scenery 200 [facility] [place], [place] [address] 08/10/2023 1:30 PM EST Nurse Only Hematology/Oncology [facility] [address], [place] [address] [place], Nurse Hem Onc [facility] [address], [place] [address] 08/10/2023 3:00 PM EST Office Visit Family Practice 65 [facility] 293 [facility] [place] [address] Sami Stephens, 293 [place] [address] 08/30/2023 11:15 AM EST Office Visit Dermatology [facility] [address], [place] [address] Nik Vieira MD [address], [place] [address] 08/31/2023 3:15 PM EST Procedure Only Urology, [facility] 132 [facility] [place] [address] Marbin Ivan MD 27 [facility] [address] [place] [address] 09/22/2023 1:15 PM EST Office Visit Hematology/Oncology [facility] [address], [place] [address] Rasheed Maldonado MD 200 [facility] [address], [place] [address] 10/18/2023 10:00 AM EST Nurse Only Ancillary 65 [facility] 293 [facility] [place] [address] College, Nurse Annual Wellness Visit [address] [place] [address], [place] [address] 11/18/2023 10:45 AM EDT Office Visit Hematology/Oncology [facility] 200 [facility] [place] [address] Rasheed Maldonado MD 200 [facility] [place] [address] 03/12/2024 1:10 PM EDT Office Visit Dermatology [facility] [address] [place] [address] Natasha Nova PA-C [address] [place] [address] 03/13/2024 1:30 PM EDT Office Visit Cardiology, [facility] 132 [facility] [place] [address] Angela Peter CRNP [address] [place], [place] [address] [address] 05/17/2024 10:00 AM EDT Office Visit [facility]tr [facility] 132 [facility] [place] [phone] Kathrine Haile CRNP 132 [facility] [place] [address] Health Maintenance Due Date Last Done Comments COVID-19 Vaccine (2022- season) 2023 05/18/2022, 02/02/2022, 06/08/2021, Additional history exists HbA1c 05/27/2024 05/27/2023, 01/14, 10/18/2022, Additional history exists Depression Screening 07/19/2024 07/19/2023 GFR 07/19/2024 07/19/2023, 06/16, 07/06/2023, Additional history exists Albumin/Creatinine Ratio 01/08/2025 01/08/2022, 08/2 11/2020 DTaP,Tdap,and Td Vaccines (2 - Td or [...] this encounter Medical Devices Implanted Type Area Subway Train Driver Device Identifier Shelf Expiration Date Model / Serial / Lot Port Implant W/8f Poly Cath - [id number] Implanted:Qty: 1 on 05/12/2023 at [facility] CR BARD : PERIPHERAL VASCULAR [id number] 07/14/2024 [id number] / / [id number] documented as of this encounter Advance Directives [...] Advance Directives occurred with: Patient Care Teams Social Worker Delinquency Prevention Relationship Specialty Start Date End Date Sami Stephens DO [address] [place] [address] PCP - General Internal Medicine 01/08/22 documented as of this encounter
--- OUTSIDE RECORDS SUMMARY | 2023-09-12 16:19 | External Medical Summary | Summary of Care ---
Author Name Unknown Organization [facility] Address [address] [place] [address] Phone [phone] Care Team Providers Care Wafer Fabrication Operator Name Role Phone Sami Stephens DO Primary Care Provider [phone] Reason for Visit * Reason Onset Date Comments Other 07/19/2023 Encounter Details Date Type Department Care Team (Late st Contact Info) Description 07/19/2023 Telephone Family Practice 65 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 0 07/19/2023 Active documented as of this encounter (statuses as of 07/26/2023) Active Problems Problem Noted Date Diagnosed Date [...] as of this encounter (statuses as of 07/26/2023) Immunizations Name Administration Dates Next Due COVID-19 mRNA, LNP-s, No Pre serve, 2-Dose Series (Moderna) 09/23/2020,08/29/2020 COVID-19, mRNA, LNP-s, PF, B ooster, 100mcg/0.5mg (Moderna) 02/02/2022,06/08/2021 Covid-19, Mrna, Lnp-s, Pf, B ivalent, 50 Mcg, IM, 12 yrs and above (Moderna) 05/18/2022 Pneumococcal Conjugate Vacci ne, 20-valent ([id number]) 04/12/2022 Seasonal Influenza, Quadriva lent Hd (Fluzone [...] * Telephone Encounter - [facility] Managing Director - 07/26/2023 11:39 AM EST Called and LVM for patient to return my call to schedule balance and fitness assessment. * Telephone Encounter - [facility] Managing Director - 07/22/2023 11:28 AM EST Received voicemail from patient returning my call. Called and LVM for patient to return my call to schedule assessments. * Telephone Encounter - [facility] Managing Director - 07/21/2023 2:36 PM EST Called and LVM for patient to return my call to schedule balance and fitness assessment. * Telephone Encounter - Kathi Hennessy OSA - 07/19/2023 1:50 PM EST Please contact pt to set up a balance/strength assessment . He is asking to do this after the holidays. Please call him at [phone] documented in this encounter Plan of Treatment Upcoming Encounters Date Type Department Care Team (Late st Contact Info) Description 07/29/2023 2:30 PM EST Office Visit Cardiology, [address] [place] [address] Angela Peter CRNP 400 [facility] [place] [phone] 08/01/2023 3:40 PM EST Office Visit Family [facility] 65 [facility] 293 [place] [address] Sami Stephens, DO 293 [place] [address] 08/10/2023 1:00 PM EST Laboratory Laboratory [facility] [address] [place] [phone] [place], Lab Scenery 200 [facility] [place] [address] 08/10/2023 1:30 PM EST Nurse Only Hematology/Oncology [facility] [address] [place] [address] [place], Nurse Hem Onc [facility] 200 [facility] [place] [address] 08/10/2023 3:00 PM EST Office Visit Family Practice [address] [place] [address] 293 [place] [address] Sami Stephens, DO 293 [facility], [place] [address] 08/30/2023 11:15 AM EST Office Visit Dermatology [facility] [address] [place], [place] [address] Nik Vieira MD [address] [place] [address] 08/31/2023 3:15 PM EST Procedure Only Urology, [facility] 132 [facility] [place] [address] Marbin Ivan MD [address] [address] [place] [address] 09/22/2023 1:15 PM EST Office Visit Hematology/Oncology [facility] [address] [place] [address] Rasheed Maldonado MD 200 [facility] [place] [address] 10/18/2023 10:00 AM EST Nurse Only Ancillary 65 [facility] 293 [facility], [place] [address] [place], Nurse Annual Wellness Visit [address], [place] [address] 11/18/2023 10:45 AM EDT Office Visit Hematology/Oncology [facility] [address] [place] [address] Rasheed Maldonado MD 200 [facility] [place], [place] [address] 03/12/2024 1:10 PM EDT Office Visit Dermatology [facility] [place] [address] [place] [address] Natasha Nova PA-C [address] [place] [address] 03/13/2024 1:30 PM EDT Office Visit Cardiology, [facility] 132 [facility] [place] [address] Angela Peter CRNP [address] [place] [address] [place] [address] 05/17/2024 10:00 AM EDT Office Visit Sleep Disorders Ctr [facility] 132 [facility] [place] [phone] Kathrine Haile CRNP [address] [facility] [place] [address] Health Maintenance Due Date Last Done Comments [...] this encounter Medical Devices Implanted Type Area Group Exercise Class Instructor Device Identifier Shelf Expiration Date Model / Serial / Lot Port Implant W/8f Poly Cath - [id number] Implanted:Qty: 1 on 05/12/2023 at [facility] CR BARD : PERIPHERAL VASCULAR [id number] 07/14/2024 [id number] / / [id number] documented as of this encounter Advance Directives [...] Advance Directives occurred with: Patient Care Teams Wafer Fabrication Operator Relationship Specialty Start Date End Date Sami Stephens DO 293 [place] [address] PCP - General Internal Medicine 01/08/22 documented as of this encounter
--- OUTSIDE RECORDS SUMMARY | 2023-09-12 16:19 | External Medical Summary | Summary of Care ---
Author Name Unknown Organization [facility] Address [address] [place] [address] Phone [phone] Care Team Providers Care Line Director Name Role Phone Sami Stephens DO Primary Care Provider [phone] Reason for Referral * Evaluate & Treat - Unlimited Visits (Within 30 days (routine)) - Authorized Specialty Diagnoses / Procedures Referred By Katie garber Referred To Contact Plastic Surgery Diagnoses Disorder of eyelid Sami Stephens DO [address] [place] [address] Referral ID Status Reason Start Date Expiration Date Visits Requested Visits Authorized [id number] Authorized Specialty Services Required 3 999 999 [...] Info) Description 07/25/2023 Telephone Family Practice 65 [facility] [place] [address] [place] [address] Sami Stephens DO [address] [place], [place] [phone] Appointment (07/25 ) Allergies Active Allergy Reactions [...] Sulfamethoxazole-Tr imethoprim 800-160 MG Oral Tablet (Bactrim DS)Indications:[place] 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) [...] Tablet 2 07/18/2023 07/17/2024 Active Saline Nasal [place] 0.65 % Nasal Solution ([place])Indications: Nasal drainage Administer 1 [place] into nostril every 6 hours as needed [...] (Moderna) 05/18/2022 Pneumococcal Conjugate Vacci ne, 20-valent ([id number]) 04/12/2022 Seasonal Influenza, Quadriva lent Hd (Fluzone [...] 07/25/2023 9:39 AM EST [facility] They do not do the procedure he needs Needs referred to Ocular Plastics documented in this encounter Plan of Treatment Upcoming Encounters Date Type Department Care Team (Late st Contact Info) Description 07/29/2023 2:30 PM EST Office Visit Cardiology, [facility] 132 [facility] [place] [address] Angela Peter CRNP 400 [facility] [place] [phone] 08/01/2023 3:40 PM EST Office Visit Family Practice [address] [place] [address] 293 [facility], [place] [address] Sami Stephens, DO 293 [place] [address] 08/10/2023 1:00 PM EST Laboratory Laboratory [facility] [address] [place], [place] [phone] [place], Lab [facility] [address] [place] [address] 08/10/2023 1:30 PM EST Nurse Only Hematology/Oncology [facility] [address] [place], [place] [address] [place], Nurse Hem Onc [facility] [address] [place], [place] [address] 08/10/2023 3:00 PM EST Office Visit Family Practice [address] [place] [address] 293 [place] [address] Sami Stephens, DO 293 [place] [address] 08/30/2023 11:15 AM EST Office Visit Dermatology [facility] [address] [place], [place] [address] Nik Vieira MD [address] [place], [place] [address] 08/31/2023 3:15 PM EST Procedure Only Urology, [facility] 132 [place] [address] Marbin Ivan MD 27 [facility] 270 [place] [address] 09/22/2023 1:15 PM EST Office Visit Hematology/Oncology [facility] [address] [place] [address] Rasheed Maldonado MD [address] [place] [address] 10/18/2023 10:00 AM EST Nurse Only Ancillary 65 [facility] [place] 293 [place] [address] College, Nurse Annual Wellness Visit [address] [place] [address] 11/18/2023 10:45 AM EDT Office [facility] [address] [place] [address] Rasheed Maldonado MD 200 [facility] [place] [address] 03/12/2024 1:10 PM EDT Office Visit Dermatology [facility] [address] [place] [address] Natasha Nova PA-C [address] [place] [address] 03/13/2024 1:30 PM EDT Office Visit Cardiology, [facility] 132 [facility] [place] [address] Angela Peter CRNP 400 [facility] [phone] 05/17/2024 10:00 AM EDT Office Visit Sleep Disorders Ctr [facility] 132 [facility] [place] [phone] Kathrine Haile CRNP 132 [facility] [place] [address] Scheduled Referrals Name Type Priority Associated Diagnoses [...] this encounter Medical Devices Implanted Type Area Automation Qtp Tester Device Identifier Shelf Expiration Date Model / Serial / Lot Port Implant W/8f Poly Cath - [id number] Implanted:Qty: 1 on 05/12/2023 at [facility] CR BARD : PERIPHERAL VASCULAR [id number] 07/14/2024 [id number] / / [id number] documented as of this encounter Visit Diagnoses [...] Advance Directives occurred with: Patient Care Teams Line Director Relationship Specialty Start Date End Date Sami Stephens DO [address] [place] [address] PCP - General Internal Medicine 01/08/22 documented as of this encounter
--- OUTSIDE RECORDS SUMMARY | 2023-09-12 16:19 | External Medical Summary | Summary of Care ---
Author Name Unknown Organization [facility] Address [address] [place] [address] Phone [phone] Care Team Providers Care Calender Operator Name Role Phone Sami Stephens DO Primary Care Provider [phone] Reason for Referral * Evaluate & Treat - Unlimited Visits (Within 30 days (routine)) - Authorized Specialty Diagnoses / Procedures Referred By Katie garber Referred To Contact Plastic Surgery Diagnoses Disorder of eyelid Sami Stephens DO [address] [place] [address] Referral ID Status Reason Start Date Expiration Date Visits Requested Visits Authorized [id number] Authorized Specialty Services Required 3 999 999 [...] Info) Description 07/25/2023 Telephone Family Practice 65 [facility] [place] [address] [place] [phone] Sami Stephens DO [address] [place], [place] [phone] Appointment (07/25 ) Allergies Active Allergy Reactions [...] Sulfamethoxazole-Tr imethoprim 800-160 MG Oral Tablet (Bactrim DS)Indications:[place] 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) [...] Tablet 2 07/18/2023 07/17/2024 Active Saline Nasal [place] 0.65 % Nasal Solution ([place])Indications: Nasal drainage Administer 1 [place] into nostril every 6 hours as needed [...] (Moderna) 05/18/2022 Pneumococcal Conjugate Vacci ne, 20-valent ([id number]) 04/12/2022 Seasonal Influenza, Quadriva lent Hd (Fluzone [...] 07/25/2023 9:39 AM EST Received call from [facility] They do not do the procedure he needs Needs referred to Ocular Plastics documented in this encounter Plan of Treatment Upcoming Encounters Date Type Department Care Team (Late st Contact Info) Description 07/29/2023 2:30 PM EST Office Visit Cardiology, [facility] 132 [facility] [place] [address] Angela Peter CRNP [address] [place] [address] [place] [address] 08/01/2023 3:40 PM EST Office Visit Family Practice 65 [facility] 293 [place] [address] Sami Stephens, DO 293 [place] [address] 08/10/2023 1:00 PM EST Laboratory Laboratory [facility] [address] [place] [address] [place], Lab [facility] [address] [place], [place] [address] 08/10/2023 1:30 PM EST Nurse Only Hematology/Oncology [facility] [address] [place], [place] [address] [place], Nurse Hem Onc [facility] 200 [facility] [place], [place] [address] 08/10/2023 3:00 PM EST Office Visit Family Practice [address] [place] [address] 293 [place] [address] Sami Stephens, DO 293 [place] [address] 08/30/2023 11:15 AM EST Office Visit Dermatology [facility] [address] [place], [place] [address] Nik Vieira MD [address] [place] [address] 08/31/2023 3:15 PM EST Procedure Only Urology, [facility] 132 [facility] [place] [address] Marbin Ivan MD 27 [facility] 270 [place] [address] 09/22/2023 1:15 PM EST Office Visit Hematology/Oncology [facility] [address] [place] [address] Rasheed Maldonado MD 200 [facility] [place] [address] 10/18/2023 10:00 AM EST Nurse Only Ancillary [address] [facility], [place] 293 [facility], [place] [address] [place], Nurse Annual Wellness Visit [address], [place] [address] 11/18/2023 10:45 AM EDT Office Visit Hematology/Oncology [facility] [address] [place] [address] Rasheed Maldonado MD 200 [facility] [place] [address] 03/12/2024 1:10 PM EDT Office Visit Dermatology [facility] [address] [place] [address] Natasha Nova PA-C [address] [place] [address] 03/13/2024 1:30 PM EDT Office Visit Cardiology, [facility] 132 [facility] [place] [address] Angela Peter CRNP [address] [place], [place] [address] [address] 05/17/2024 10:00 AM EDT Office Visit [facility]tr [facility] 132 [facility] [place] [phone] Kathrine Haile CRNP 132 [facility] [place] [address] Scheduled Referrals Name Type Priority Associated Diagnoses [...] this encounter Medical Devices Implanted Type Area Gas Plant Repairer Device Identifier Shelf Expiration Date Model / Serial / Lot Port Implant W/8f Poly Cath - [id number] Implanted:Qty: 1 on 05/12/2023 at [facility] CR BARD : PERIPHERAL VASCULAR [id number] 07/14/2024 [id number] / / [id number] documented as of this encounter Visit Diagnoses [...] Advance Directives occurred with: Patient Care Teams Calender Operator Relationship Specialty Start Date End Date Sami Stephens DO [address] [place] [address] PCP - General Internal Medicine 01/08/22 documented as of this encounter
--- OUTSIDE RECORDS SUMMARY | 2023-09-12 16:19 | External Medical Summary | Summary of Care ---
Author Name Unknown Organization [facility] Address [address] [place] [address] Phone [phone] Care Team Providers Care Cork Insulation Setter Name Role Phone Sami Stephens DO Primary Care Provider [phone] Reason for Visit * Reason Onset Date Comments Other 07/19/2023 Encounter Details Date Type Department Care Team (Late st Contact Info) Description 07/19/2023 Telephone Family Practice 65 [facility] [place] [address] [place] [address] Sami Stephens DO [address] [place] [address] Other Allergies Active Allergy Reactions Criticality Noted Date Comments Pembrolizumab 07/01/2023 Penicillins 03/22/2023 Patient states had a reaction many years ago - that it was the "horse serum kind." documented as of this encounter (statuses as of 07/21/2023) Medications Medication Sig Dispensed Refills Start Date [...] Sulfamethoxazole-Tr imethoprim 800-160 MG Oral Tablet (Bactrim DS)Indications:[place] 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 0 07/19/2023 Active documented as of this encounter (statuses as of 07/21/2023) Active Problems Problem Noted Date Diagnosed Date [...] as of this encounter (statuses as of 07/21/2023) Immunizations Name Administration Dates Next Due COVID-19 mRNA, LNP-s, No Pre serve, 2-Dose Series (Moderna) 09/23/2020,08/29/2020 COVID-19, mRNA, LNP-s, PF, B ooster, 100mcg/0.5mg (Moderna) 02/02/2022,06/08/2021 Covid-19, Mrna, Lnp-s, Pf, B ivalent, 50 Mcg, IM, 12 yrs and above (Moderna) 05/18/2022 Pneumococcal Conjugate Vacci ne, 20-valent ([id number]) 04/12/2022 Seasonal Influenza, Quadriva lent Hd (Fluzone [...] * Telephone Encounter - Macie Herman Health Replenishment Specialist - 07/21/2023 2:36 PM EST Called and LVM for patient to return my call to schedule balance and fitness assessment. * Telephone Encounter - Kathi Hennessy OSA - 07/19/2023 1:50 PM EST Please contact pt to set up a balance/strength assessment . He is asking to do this after the holidays. Please call him at [phone] documented in this encounter Plan of Treatment Upcoming Encounters Date Type Department Care Team (Late st Contact Info) Description 07/25/2023 2:00 PM EST Office Visit Cardiology, [facility] [address] [facility] [place] [address] Francisco Sharma DO [address] [place] [address] 08/10/2023 1:00 PM EST Laboratory Laboratory [facility] [place] [address] [place] [phone] Jordana Lab [facility] [address] [facility] [place] [address] 08/10/2023 1:30 PM EST Nurse Only Hematology/Oncology [facility] [place] [address] [place] [address] Jordana, Nurse Hem Onc [facility] [address] [place], [place] [address] 08/10/2023 3:00 PM EST Office Visit Family Practice 65 [facility] [address] [place] [address] Sami Stephens, 293 [facility] [place] [address] 08/30/2023 11:15 AM EST Office Visit Dermatology [facility] [address] [place], [place] [address] Nik Vieira MD [address] [place], [place] [address] 08/31/2023 3:15 PM EST Procedure Only Urology, [facility] 132 [facility] [place] [address] Marbin Ivan MD 27 [facility] [address] [place] [address] 09/22/2023 1:15 PM EST Office Visit Hematology/Oncology [facility] [address] [place], [place] [address] Rasheed Maldonado MD [address] [place], [place] [address] 10/18/2023 10:00 AM EST Nurse Only Ancillary 65 [facility] 293 [facility], [place] [address] College, Nurse Annual Wellness Visit [address] [place] [address] 11/18/2023 10:45 AM EDT Office Visit Hematology/Oncology [facility] [address] [place], [place] [address] Rasheed Maldonado MD [address] [place] [address] 03/12/2024 1:10 PM EDT Office Visit Dermatology [address], [place] [address] [place] [address] Natasha Nova PA-C [address] [facility] [place] [address] 03/13/2024 1:30 PM EDT Office Visit Cardiology, [facility] 132 [facility] [place] [address] Angela Peter CRNP 400 [facility] [place] [address] 05/17/2024 10:00 AM EDT Office Visit Sleep Disorders Ctr [facility] 132 [facility] [place] [phone] Kathrine Haile CRNP 132 [facility] [place] [address] Health Maintenance Due Date Last Done Comments [...] this encounter Medical Devices Implanted Type Area Network Analyst Device Identifier Shelf Expiration Date Model / Serial / Lot Port Implant W/8f Poly Cath - [id number] Implanted:Qty: 1 on 05/12/2023 at [facility] BARD : PERIPHERAL VASCULAR [id number] 07/14/2024 [id number] / / [id number] documented as of this encounter Advance Directives [...] Advance Directives occurred with: Patient Care Teams Cork Insulation Setter Relationship Specialty Start Date End Date Sami Stephens DO [address] [facility] [place] [address] PCP - General Internal Medicine 01/08/22 documented as of this encounter
--- OUTSIDE RECORDS SUMMARY | 2023-09-12 16:20 | External Medical Summary | Summary of Care ---
Author Name Unknown Organization [facility] Address [address] [place] [address] Phone [phone] Care Team Providers Care Unattended Ground Sensor Specialist Name Role Phone Sami Stephens DO Primary Care Provider Reason for Visit * Reason Comments Re-Check chemo Encounter Details Date Type Department Care Team (Late st Contact Info) Description 07/20/2023 10:45 AM EST Office Visit Hematology/Oncology [facility] [place] [address] Rasheed Maldonado MD 200 [place] [address] Melanoma of face (HCC)*; 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); Drug-induced hepatitis Allergies Active Allergy Reactions Criticality Noted Date Comments Pembrolizumab 07/01/2023 Penicillins 03/22/2023 Patient states had a reaction many years ago - that it was the "horse serum kind." documented as of this encounter (statuses as of 07/20/2023) Medications Medication Sig Dispensed Refills Start Date [...] Sulfamethoxazole-Tr imethoprim 800-160 MG Oral Tablet (Bactrim DS)Indications:[place] 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) [...] Tablet 2 07/18/2023 07/17/2024 Active Saline Nasal Winston 0.65 % Nasal Solution ([place])Indications: Nasal drainage Administer 1 Winston into nostril every 6 hours as needed for Congestion. 0 07/19/2023 Active documented as of this encounter (statuses as of 07/20/2023) Active Problems Problem Noted Date Diagnosed Date [...] as of this encounter (statuses as of 07/20/2023) Immunizations Name Administration Dates Next Due COVID-19 mRNA, LNP-s, No Pre serve, 2-Dose Series (Moderna) 09/23/2020,08/29/2020 COVID-19, mRNA, LNP-s, PF, B ooster, 100mcg/0.5mg (Moderna) 02/02/2022,06/08/2021 Covid-19, Mrna, Lnp-s, Pf, B ivalent, 50 Mcg, IM, 12 yrs and above (Moderna) 05/18/2022 Pneumococcal Conjugate Vacci ne, 20-valent ([id number]) 04/12/2022 Seasonal Influenza, Quadriva lent Hd (Fluzone [...] Sign Reading Time Taken Comments Blood Pressure 116/69 07/20/2023 10:33 AM EST Pulse 71 07/20/2023 10:33 AM EST Temperature 35.8 C (96.5 F) 07/20/2023 1 0:33 AM EST Respiratory Rate - - Oxygen Saturation 93% 07/20/2023 10: 33 AM EST Inhaled Oxygen Concentration - - Weight 138.9 kg (306 lb 4.8 oz) 023 10:33 AM EST Height - - Body Mass Index 41.54 07/05/2023 2:01 PM EST documented in this encounter Progress Notes * Rasheed Maldonado MD - 07/20/2023 10:45 AM EST RICO LARSON MR # [id number] :1945 78-year-old male, Date of consultation:04/27/2023 DIAGNOSIS: - Melanoma involving the left frontal scalp, S/P resection, T4a, depth of invasion is 5.9 mm -1/2 sentinel lymph node positive for metastasis involving the left preauricular region, N1 BRAF negative. PET-CT scan (05/02/2023). 1. Focal hypermetabolism in the left frontoparietal scalp postoperative bed and within a probable lymph node cluster versus postoperative changes superficial to the left parotid gland. 2. Mildly hypermetabolic left inguinal canal lymph node. Favor reactive, but malignancy cannot be completely excluded. 3. Otherwise, no convincing FDG PET/CT evidence of metastatic disease. Brain MRI --> negative (04/25/2023). CURRENT TREATMENT: -started him on adjuvant pembrolizumab, received 1 dose on 05/06/2023 but when he came back for the next treatment 3 weeks, he would significantly elevated LFT and the elevated CPK suggest immune mediated hepatitis and rhabdomyolysis Started him on oral prednisone 80 mg once a day on 05/29/2023. -currently he is on prednisone at 5 mg per day (07/20/2023). Next week he will complete the prednisone course. Planning for blood workup about 2 weeks after the completion of prednisone course and see how he does. DIAGNOSTIC WORKUP: He noticed some increasing more on left frontal scalp region Left frontal scalp shave biopsy (03/07/2023: -invasive malignant melanoma, desmoplastic type, extending to the deep margin, Breslow measurement at least 1.4 mm. S/P Mohs procedure on the left frontal scalp on 03/22/2023: -residual invasive melanoma, Breslow measurement 5.9 mm Pathological T4a Additional excision from the left frontal scalp --> no residual melanoma identified (03/29/2023 ). Left preauricular sentinel lymph margo biopsy --> metastatic melanoma involving 1/1 lymph node. - left cervical level 4 sentinel lymph node --> negative for metastatic disease -pathological N1 OTHER IMPORTANT HISTORY: - aortic stenosis. -hypertension -depression , he is on Zoloft -BPH -sleep apnea, on CPAP Bilateral varicoceles, larger on the left. - Left inguinal hernia. -impaired hearing, he uses hearing aid. INTERVAL HISTORY: He has come the clinic for the follow-up, accompanied by his in the office. He says that sincethe liver toxicity of Keytruda, he has lost about 40 to 50 lb, current weight around 306 lb, currently he is on oral prednisone at 5 mg per day, he says that he is feeling much better after cutting back the dose to the prednisone to 5 mg per day, no nausea no vomiting, no fever, no night sweats, no new GI symptoms, no increasing back pain or bone pain. He does come shortness of breath, he is using oxygen as needed, he checks his pulse ox on regular basis, most of the time It is in the 92 range, pulse ox drops when he walks around. He is using CPAP on a regular basis at nighttime. No fever. Currently he is on Bactrim prophylaxis. He is also on omeprazole prophylaxis. No new bleeding episodes. Past Medical History: Diagnosis Date Gout Heart murmur Hypercholesteremia Hypertension Moderate aortic valve stenosis 04/28/2022 Retinal detachment 2018 Right eye Sleep apnea Sleep apnea, obstructive Past Surgical History: Procedure Laterality Date BX LYMPH NODE-SUPERFIC Left 04/11/2023 BIOPSY LYMPH NODE OPEN SUPERFICIAL performed [place] Tito Ortega [place] [facility] [place],COMPLEX 2015 BOTH EYES COLONOSCOPY has had several IDENTIFY SENTINEL NODE, RADIOACTIVE TRACER Left 04/11/2023 INJECTION PROCEDURE FOR IDENTIFICATION SENTINEL NODE performed by Tito Ortega MD [place] [facility] IN[place] tonsils as a child IR VENOUS ACCESS MEDIPORT 05/12/2023 OTHER 2019 VIRECTOMY OD OTHER ACT [address] Townsend (08-21-21) PROCEDURE - GENERAL Left 11/23/2021 Left Inguinal hernia surgery by Dr Mak Fisher PROSTATE, LASER VAPORIZATION N/A 07/21/2022 LASER VAPORIZATION PROSTATE performed by Marbin Ivan MD at [facility] REMOVAL OF PROSTATE (TURP) N/A 07/21/2022 TRANSURETHRAL RESECTION PROSTATE ELECTROSURGICAL performed by Marbin Ivan MD at OR [facility] Current Outpatient Medications Medication Sig Dispense Refill Aspirin 81 MG Oral Tablet Delayed Release Take 1 Tablet by mouth daily. PM SM Vitamin D3 100 MCG (4000 UT) Oral Capsule (Cholecalciferol) Take by mouth 5,000 Units daily . CPAP every night at bedtime . Dulaglutide 1.5 MG/0.5ML Subcutaneous Solution Pen-injector (WorkSimple) INJECT 1.5MG UNDER THE SKINONCE WEEKLY (Patient taking differently: Tuesday) 6 mL 3 Atorvastatin Calcium 20 MG Oral Tablet (Lipitor) TAKE ONE TABLET BY MOUTH EVERY MORNING (Patient not taking: Reported on 06/10/2023) 100 Tablet 3 Finasteride 5 MG Oral [...] mouth in the morning. 30 Capsule 5 predniSONE 5 MG Oral Tablet (Deltasone) Take 1 Tablet by mouth in the morning. Taper per Dr Maldonado based on lab results. 14 Tablet 0 Solifenacin Succinate 5 MG Oral Tablet (VESIcare) TAKE ONE TABLET BY MOUTH EVERY DAY NEEDED (URINARY FREQUENCY 90 Tablet 2 No current facility-administered medications for this visit. Family History Problem Relation Age of Onset Eye Problems Mother Cataract Cancer Mother Breast Heart Disorder Father Diabetes Father Asthma Brother Eye Problems Brother REtina Detachment Diabetes Grandmother (Maternal) Heart disease Grandfather (Maternal) Renal Hx No significant family history Lung Disorder No significant family history Social History Socioeconomic History Marital status: Spouse [...] on file Food Insecurity: No Food Insecurity (07/05/2023) Hunger Vital Sign Worried About Running Out of Food in the Last Year: Never true Ran Out of Food in the Last Year: Never true Transportation Needs: Not on file Physical Activity: Not on file Stress: Not on file Social Connections: Not on file Intimate Partner Violence: Not on file Housing Stability: Not on file On Exam: BP 116/69 (BP Site: Left Arm, BP Position: Sitting, BP Cuff Size: Regular) | Pulse 71 | Temp 35.8 C (96.5 F) | Wt (!) 138.9 kg (306 lb 4.8 oz) | SpO2 93% | BMI 41.54 kg/m | BSA 2.66 m Constitutional: Patient is alert, cooperative and oriented x 3. Well built man, Patient is in no acute distress. HEENT:No icterus, no pallor, Throat and pharynx normal. Sinuses are non-tender. Neck: Supple and without lymphadenopathy or masses. No JVD. No Palpable supraclavicular lymph nodes. Lungs: Clear to auscultation. Bilateral symmetric air entry. No wheezing or rhonchi. Cardiovascular: Normal heart sounds, no murmurs.Regular rate and rhythm. Abdomen: soft, nontender, no hepatomegaly, no splenomegaly. Bowel sounds are normal. Neurological: No gross focal neurological deficit; walks with a normal gait. Extremities: No finger clubbing, No cyanosis. No leg edema. Skin:: No skin rash. SPINE: No spinal or paraspinal tenderness. LABS: Blood workup done on 02/04/2023: -WBC 8900, H&H of 14.9/44.8, Platelet count 062669. -BUN/Creat: 18/1.2, Calcium 9.6, normal liver function test. -TSH --> 3.5. Blood workup done at [facility] on 06/15/2023: -WBC 42091, H&H of 14.8/44.6, Platelet count of 431597 -he was on briefly IV heparin when he was in hospital. -BUN/Creat: 24/0.9 -AST 119, ALT 257 -CPK 2308. Blood workup done on 07/19/2023: -WBC 19722, H&H of 15.8/47.4, Platelet count 162241 -BUN/Creat: 13/1.3, normal liver function test. -TSH --> 2.8. IMAGING: As described above. CT chest( 06/10/2023) 1. Limited exam as above. There is cardiomegaly without pulmonary emboli identified. 2. No pleural effusion or airspace consolidation to suggest pneumonia. 3. Bronchial wall thickening suggestive of bronchitis or reactive airway disease. 4. Bibasilar mucous plugging with atelectasis. 5. Hepatic steatosis. 6. Distended gallbladder. ASSESSMENT AND PLAN: 77-year-old male, Oncology diagnosis: -scalp melanoma involving left frontal region, S/P resection, T4a primary tumor, 1 after 2 sentinellymph node positive for metastatic disease, N1 disease. PET-CT scan negative for distant metastatic disease, brain MRI negative for metastasis. He received 1 dose of Keytruda and then when he came back after 3 weeks for 2nd dose, he had significantly elevated AST, ALT and CPK, he was then started on prednisone 80 mg once a day and decided todiscontinue immunotherapy Now gradually we have cut down the dose of prednisone to 5 mg per day, blood workup done yesterday showed normal liver function test. He will continue prednisone 5 mg for additional 1 week and then planning to discontinue. He will have another blood workup in about 2 weeks after the discontinuation of the prednisone and see how he does ( he will have a nurse evaluation in the clinic at that time). No lymphocytopenia noted in the recent blood workup, would like to discontinue Bactrim prophylaxis Once he is off the prednisone, he can stop omeprazole about week later. He will continue to have follow-up with Dermatology. I am planning to see him back in the clinic in about the [address] Rasheed Maldonado Hem/Onc (This note was completed using the dictation program Fluency Direct. As such, there may be misspellings word substitutions, or other variations that should not change the essence of the clinical content of this encounter note. If there is need for further clarification, please direct questions to the provider listed above.) documented in this encounter Nursing Notes * Zhou Arambula, HAYLEE JOHNSTON - 07/20/2023 10:34 AM EST Patient identified by name and date of . Do you have any concerns about pain management for today's visit? No Living Will or Advance Directive for Health Care as noted on problem list. My [facility] is a way you can talk to your provider online through e-mail. Would you like to sign up? I can activate it for you? ALREADY ACTIVE BP 116/69 (BP Site: Left Arm, BP Position: Sitting, BP Cuff Size: Regular) | Pulse 71 | Temp 35.8 C (96.5 F) | Wt (!) 138.9 kg (306 lb 4.8 oz) | SpO2 93% | BMI 41.54 kg/m | BSA 2.66 m Patient was instructed to not get up on the exam table/exam chair until directed and assisted by their provider; patient is to remain seated in the chair/ wheelchair/ exam table/ exam chair for fall prevention and safety reasons. Patient is aware to have assistance to step down off exam table/exam chair with personnel. Patient voiced full comprehension of instructions. documented in this encounter Plan of Treatment Upcoming Encounters Date Type Department Care Team (Late st Contact Info) Description 07/25/2023 2:00 PM EST Office Visit Cardiology, [facility] 132 [facility] [place] [address] Francisco Sharma, 132 [facility] [place] [address] 08/10/2023 1:00 PM EST Laboratory Laboratory [facility] [address] [place] [phone] Jordana, Lab [facility] 200 [facility] [place] [address] 08/10/2023 1:30 PM EST Nurse Only Hematology/Oncology [facility] [address] [place] [address] Jordana, Nurse Hem Onc [facility] 200 [place] [address] 08/10/2023 3:00 PM EST Office Visit Family Practice [address] [place] [address] [facility] [address] Sami Stephens, DO 293 [place] [address] 08/30/2023 11:15 AM EST Office Visit Dermatology [facility] [address] [place] [address] Nik Vieira MD 200 [facility] [place] [address] 08/31/2023 3:15 PM EST Procedure Only Urology, [facility] 132 [place] [address] Marbin Ivan MD 27 [facility] [address] [place] [address] 09/22/2023 1:15 PM EST Office Visit Hematology/Oncology [facility] [address] [place] [address] Rasheed Maldonado MD 200 [place] [address] 10/18/2023 10:00 AM EST Nurse Only Ancillary 65 [facility] 293 [place] [address] [place], Nurse Annual Wellness Visit [address] [address] 11/18/2023 10:45 AM EDT Office Visit Hematology/Oncology [facility] [address] [place], [place] [address] Rasheed Maldonado MD [address] [place] [address] 03/12/2024 1:10 PM EDT Office Visit Dermatology [facility] [place] [address] [facility] [address] Natasha Nova PA-C 3[address] [facility] [place] [address] 03/13/2024 1:30 PM EDT Office Visit Cardiology, [facility] 132 [facility] [place] [address] Angela Peter CRNP [address] [place] [address] 05/17/2024 10:00 AM EDT Office Visit Sleep Disorders Ctr [facility] 132 [facility] [place] [phone] Kathrine Haile CRNP 132 [facility] [place] [address] Health Maintenance Due Date Last Done Comments [...] this encounter Medical Devices Implanted Type Area Craft Coordinator Device Identifier Shelf Expiration Date Model / Serial / Lot Port Implant W/8f Poly Cath - [id number] Implanted:Qty: 1 on 05/12/2023 at [facility] BARD : PERIPHERAL VASCULAR [id number] 07/14/2024 [id number] / / [id number] documented as of this encounter Visit Diagnoses Diagnosis Melanoma of face (HCC)- Primary Malignant melanoma of skin of other and unspecified parts of face 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) Secondary malignant neoplasm of other specified sites Drug-induced hepatitis Hepatitis, unspecified documented in this encounter Advance Directives [...] Advance Directives occurred with: Patient Care Teams Unattended Ground Sensor Specialist Relationship Specialty Start Date End Date Sami Stephens DO [address] [place] [address] PCP - General Internal Medicine 01/08/22 documented as of this encounter
--- OUTSIDE RECORDS SUMMARY | 2023-09-12 16:20 | External Medical Summary ---
Author Name Unknown Address Unknown Organization K09[facility] [place] [address] Laboratory Report Ordering Provider Test Date Status EMANI CAMPBELL 07/13/2023 11:37:04 Final Observation Date Value Abnormality Reference (Units ) Status WBC, Total 07/13/2023 11:37:04 11.01 Above high normal 4 .00-10.80 (K/uL) Final RBC 07/13/2023 11:37:04 5.00 4.50-5.25 (M/uL) Final Hemoglobin 07/13/2023 11:37:04 15.3 14.0-16.8 (g/dL) Final HCT 07/13/2023 11:37:04 47.5 40.0-48.4 (%) Final MCV 07/13/2023 11:37:04 95.0 82.0-99.5 (fL) Final MCH 07/13/2023 11:37:04 30.6 27.0-34.0 (pg) Final MCHC 07/13/2023 11:37:04 32.2 32.0-36.0 (g/dL) Final RDW 07/13/2023 11:37:04 15.3 11.5-15.5 (%) Final Platelets 07/13/2023 11:37:04 155 140-400 (K /uL) Final MPV 07/13/2023 11:37:04 9.4 6.6-11.1 ( fL) Final Performing Location [facility] [place] [address]
--- OUTSIDE RECORDS SUMMARY | 2023-09-12 16:20 | External Medical Summary ---
Author Name Unknown Address Unknown Organization K01:[facility] - [address] [facility] [address] [facility] [address] Laboratory Report Ordering Provider Test Date Status EMANI CAMPBELL 07/19/2023 13:46:00 Final Observation Date Value Abnormality Reference (Units ) Status WBC, Total 07/19/2023 13:46:00 10.15 4.00-10.80 (K/uL) Final RBC 07/19/2023 13:46:00 5.20 4.50-5.25 (M/uL) Final Hemoglobin 07/19/2023 13:46:00 15.8 14.0-16.8 (g/dL) Final HCT 07/19/2023 13:46:00 49.4 Above high normal 40.0-48.4 (%) Final MCV 07/19/2023 13:46:00 95.0 82.0-99.5 (fL) Final MCH 07/19/2023 13:46:00 30.4 27.0-34.0 (pg) Final MCHC 07/19/2023 13:46:00 32.0 32.0-36.0 (g/dL) Final RDW 07/19/2023 13:46:00 14.4 11.5-15.5 (%) Final Platelets 07/19/2023 13:46:00 187 140-400 (K/uL) Final MPV 07/19/2023 13:46:00 10.2 6.6-11.1 (fL) Final Nucleated erythrocytes/100 leukocytes [Ratio] in Blood by Automated count 07/19/2023 13:46:00 0 <=0 (/100 WBCs) Final Performing Location [facility] - [address] [place] [address]
--- OUTSIDE RECORDS SUMMARY | 2023-09-12 16:20 | External Medical Summary ---
Author Name Unknown Address Unknown Organization K01:[facility] [place] [address] [facility] [id number] Laboratory Report Ordering Provider Test Date Status EMANI CAMPBELL 07/19/2023 13:46:00 Final Observation Date Value Abnormality Reference (Units ) Status TSH 07/19/2023 13:46:00 2.87 0.27-4.20 (uIU/mL) Final Performing Location [facility] [place] [address] [place] [address]
--- OUTSIDE RECORDS SUMMARY | 2023-09-12 16:20 | External Medical Summary ---
Author Name Unknown Address Unknown Organization [id number]:[facility] [place] [address] [facility] [place] [address] Laboratory Report Ordering Provider Test Date Status EMANI CAMPBELL 07/19/2023 13:46:00 Final Observation Date Value Abnormality Reference (Units ) Status SYNC LEUKOCYTES IN BLOOD BY AUTOMATED COUNT 07/19/2023 13:46:00 10.15 4.00-10.80 (K/uL) Final Segs 07/19/2023 13:46:00 76.6 Above high normal 40.0-75.0 (%) Final Lymphs % 07/19/2023 13:46:00 11.8 Below low normal 18.0-42.0 (%) Final Monos 07/19/2023 13:46:00 8.5 1.0-11.0 (%) Final Eosinophils 07/19/2023 13:46:00 1.7 0.0-6.0 (%) Final Basos 07/19/2023 13:46:00 0.9 0.0-2.0 (%) Final Immature Granulocyte, Percent 07/19/2023 13:46:00 0.5 0.0-2.0 (%) Final Absolute Segs 07/19/2023 13:46:00 7.78 Above high normal 1.80-7.70 (K/uL) Final Lymphs, absolute 07/19/2023 13:46:00 1.20 1.00-4.80 (K/ul) Final Monos, Abs 07/19/2023 13:46:00 0.86 0.00-1.10 (K/uL) Final Eos, Abs 07/19/2023 13:46:00 0.17 0.00-0.70 (K/uL) Final Basos, Abs 07/19/2023 13:46:00 0.09 0.00-0.20 (K/uL) Final Immature Granulocytes, Number 07/19/2023 13:46:00 0.05 0.00-0.20 (K/uL) Final Performing Location [facility] [place] [facility] [address] [facility] [place] [address]
--- OUTSIDE RECORDS SUMMARY | 2023-09-12 16:20 | External Medical Summary ---
Author Name Unknown Address Unknown Organization K01:LABORATORY [facility] [place] - [address] [facility] [place] [address] Laboratory Report Ordering Provider Test Date Status EMANI CAMPBELL 07/19/2023 13:46:00 Final Observation Date Value Abnormality Reference (Units ) Status BUN 07/19/2023 13:46:00 13 6-20 (mg/dL) Final Creatinine 07/19/2023 13:46:00 1.3 Above high normal 0.6-1.2 (mg/dL) Final Glomerular filtration rate/1.73 sq M.predicted [Volume Rate/Area] in Serum, Plasma or Blood by Creatinine-based formula (CKD-EPI) 07/19/2023 13:46:00 58 Below low normal >=60 (mL/min) Final eGFR is calculated based on the CKD-EPI 2020 equation SODIUM 07/19/2023 13:46:00 141 135-146 (m mol/L) Final Potassium 07/19/2023 13:46:00 4.2 3.5-5.1 (m mol/L) Final Cl 07/19/2023 13:46:00 100 98-107 (mm ol/L) Final CO2 07/19/2023 13:46:00 27 22-32 (mmo l/L) Final Anion gap 07/19/2023 13:46:00 14 7-15 (mmol /L) Final Glucose 07/19/2023 13:46:00 131 Above high normal 70 -120 (mg/dL) Final Albumin 07/19/2023 13:46:00 4.2 3.8-5.0 (g /dL) Final AST (Aspartate aminotransferase) 07/19/2023 13:46:00 39 10-50 (U/L) Fin al Result may be falsely elevat ed due to hemolysis. Alk Phos 07/19/2023 13:46:00 76 35-130 (U/ L) Final Bilirubin, Total 07/19/2023 13:46:00 0.6 <=1 .2 (mg/dL) Final Calcium 07/19/2023 13:46:00 9.8 8.4-10.2 ( mg/dL) Final Protein 07/19/2023 13:46:00 6.3 6.0-8.3 (g /dL) Final ALT (Alanine aminotransferase) 07/19/2023 13:46:00 50 10-50 (U/L) Final Performing Location [facility]ORY [facility] [place] - [address] [facility] [address]
--- OUTSIDE RECORDS SUMMARY | 2023-09-12 16:20 | External Medical Summary | Summary of Care ---
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); Moderate to severe aortic stenosis; Gouty arthropathy; Dyslipidemia, goal LDL below 70; BPH with obstruction/lower urinary tract symptoms; HTN, goal below 150/90; Prediabetes; SCOTT (generalized anxiety disorder); Essential tremor; SANDRINE on CPAP; Transaminitis; Nasal drainage; Melanoma of face (HCC) Allergies Active Allergy Reactions Criticality Noted Date Comments Pembrolizumab 07/01/2023 Penicillins 03/22/2023 Patient states had a reaction many years ago - that it was the "horse serum kind." documented as of this encounter (statuses as of 07/19/2023) Medications Medication Sig Dispensed Refills Start Date [...] Sulfamethoxazole-Tr imethoprim 800-160 MG Oral Tablet (Bactrim DS)Indications:[place] 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) [...] Tablet 2 07/18/2023 07/17/2024 Active Saline Nasal Brussels 0.65 % Nasal Solution ([place])Indications: Nasal drainage Administer 1 Brussels into nostril every 6 hours as needed for Congestion. 0 07/19/2023 Active documented as of this encounter (statuses as of 07/19/2023) Active Problems Problem Noted Date Diagnosed Date [...] as of this encounter (statuses as of 07/19/2023) Immunizations Name Administration Dates Next Due COVID-19 mRNA, LNP-s, No Pre serve, 2-Dose Series (Moderna) 09/23/2020,08/29/2020 COVID-19, mRNA, LNP-s, PF, B ooster, 100mcg/0.5mg (Moderna) 02/02/2022,06/08/2021 Covid-19, Mrna, Lnp-s, Pf, B ivalent, 50 Mcg, IM, 12 yrs and above (Moderna) 05/18/2022 Pneumococcal Conjugate Vacci ne, 20-valent ([id number]) 04/12/2022 Seasonal Influenza, Quadriva lent Hd (Fluzone [...] Date Recorded PHQ Adult Total Score 0 07/05/2023 Hunger Vital Sign Answer Date Recorded Within the past 12 months, y ou worried that your food would run out before you got the money to buy more. Never true 07/05/20 23 Within the past 12 months, t he food you bought just didn't last and you didn't have money to get more. Never true 07/05/2023 Sex and Gender Information Value Date Recorded Sex Assigned at Male 04/12/2022 3:29 PM EDT Gender Identity Male 04/12/2022 3:29 PM EDT Sexual Orientation Straight 04/12/2022 3: 29 PM EDT Job Start Date Occupation Industry Not on file Not on file Not on file documented as of this encounter Last Filed Vital Signs Vital Sign Reading Time Taken Comments Blood Pressure 122/74 07/19/2023 1:11 PM EST Pulse 91 07/19/2023 1:11 PM EST Temperature 35.9 C (96.7 F) 07/19/2023 1:11 PM ES T Respiratory Rate - - Oxygen Saturation 95% 07/19/2023 1:11 PM EST Inhaled Oxygen Concentration - - Weight 139.4 kg (307 lb 4.8 oz) 07/19/2023 1:11 PM EST Height - - Body Mass Index 41.68 07/05/2023 2:01 PM EST documented in this encounter Progress Notes * Sami Stephens, - 07/19/2023 2:35 PM EST SUBJECTIVE: Ralf Larson is a 78 year old male. 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 He was recently hospitalizeddue to acute respiratory failure caused by Keytruda therapy. Shortness of breath continues to improve. Leg swelling has improved.Transaminases are improving. Strength has improved. He is still not able to lay flat due to shortness of breath. He is able to void but has urinary frequency. Oncology isweaning Prednisone. Patient Active Problem List Diagnosis Code Morbid obesity due to excess calories ([facility]) E66.01 Gouty arthropathy M10.9 Dyslipidemia, goal LDL below 70 E78.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, N13.8 HTN, goal below 150/90 I10 Vitamin D deficiency E55.9 SANDRINE on CPAP G47.33 Body mass index (BMI) of 45.0 to 49.9 in adult ([facility]) Z68.42 Prediabetes R73.03 SCOTT (generalized anxiety disorder) F41.1 [...] History of melanoma Z85.820 Drug-induced constipation K59.03 Current Outpatient Medications Medication Sig Dispense Refill Aspirin 81 MG Oral Tablet Delayed Release Take 1 Tablet by mouth daily. PM SM Vitamin D3 100 MCG (4000 UT) Oral Capsule (Cholecalciferol) Take by mouth 5,000 Units daily . CPAP every night at bedtime . Dulaglutide 1.5 MG/0.5ML Subcutaneous Solution Pen-injector ([employer]) INJECT 1.5MG UNDER THE SKINONCE WEEKLY (Patient [...] ONE TABLET BEFORE BEDTIME 180 Tablet 3 Sulfamethoxazole-Trimethoprim 800-160 MG Oral Tablet (Bactrim DS) [...] (URINARY FREQUENCY 90 Tablet 2 Saline Nasal Brussels 0.65 % Nasal Solution ([place]) Administer 1 [place] into nostril every 6 hours as needed for Congestion. Atorvastatin Calcium 20 MG Oral Tablet (Lipitor) TAKE ONE TABLET BY MOUTH EVERY MORNING (Patient not taking: Reported on 06/10/2023) 100 Tablet 3 Lidocaine-Prilocaine 2.5-2.5 % External Cream (Emla) APPLY TO SKIN OVER MEDIPORT & COVER 1HR PRIOR TO ACCESSING. (Patient not taking: Reported on 07/19/2023) 30 g 1 No current facility-administered medications for this [...] performed by Tito Ortega MD at [place] [facility] CATARACT SURGERY,COMPLEX 2016 BOTH EYES COLONOSCOPY has had several IDENTIFY SENTINEL NODE, RADIOACTIVE TRACER Left 04/11/2023 INJECTION PROCEDURE FOR IDENTIFICATION SENTINEL NODE performed by Tito Ortega MD at [place] [facility] INFORMATION tonsils as a child IR VENOUS ACCESS MEDIPORT 05/12/2023 OTHER 2019 VIRECTOMY OD OTHER ACT [address] Townsend (08-21-21) PROCEDURE - GENERAL Left 11/23/2021 Left Inguinal hernia surgery by Dr Mak Fisher PROSTATE, LASER VAPORIZATION N/A 07/21/2022 LASER VAPORIZATION PROSTATE performed by Marbin Ivan MD at OR [facility] REMOVAL OF PROSTATE (TURP) N/A 07/21/2022 TRANSURETHRAL RESECTION PROSTATE ELECTROSURGICAL performed by Marbin Ivan MD at OR [facility] Review of patient's allergies indicates: Allergen Reactions Keytruda [Pembrolizumab] Penicillins Patient states had a reaction many years ago - that it was the "horse serum kind." Review of Systems Constitutional: Positive for fatigue. Negative for appetite change and unexpected weight change. HENT: Positive for congestion and rhinorrhea. Negative for sinus pressure, sore throat and trouble swallowing. Respiratory: Positive for shortness of breath. Negative for cough and wheezing. Cardiovascular: Negative for chest pain, palpitations and leg swelling. Gastrointestinal: Negative for abdominal pain, blood in stool, constipation, diarrhea, nausea and vomiting. Genitourinary: Negative for dysuria and hematuria. Musculoskeletal: Positive for gait problem. Negative for back pain and myalgias. Neurological: Negative for dizziness, syncope and headaches. Psychiatric/Behavioral: Negative for confusion, decreased concentration and sleep disturbance. OBJECTIVE: BP 122/74 (BP Site: Left Arm, BP Position: Sitting, BP Cuff Size: Large) | Pulse 91 | Temp 35.9 C(96.7 F) | Wt (!) 139.4 kg (307 lb 4.8 oz) | SpO2 95% | BMI 41.68 kg/m | BSA 2.66 m Physical Exam Vitals and nursing note [...] No edema. Left lower leg: No edema. Comments: Leg edema has resolved. Neurological: Mental Status: He is alert and oriented to person, place, and time. Mental status is at baseline. Motor: Weakness present. Gait: Gait abnormal. Psychiatric: Mood and Affect: Mood normal. Behavior: Behavior normal. Thought Content: Thought content normal. 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) - CBC WITH WBC DIFFERENTIAL - COMPREHENSIVE METABOLIC PANEL - TSH WITH FREE T4 IF INDICATED Continue to follow with Hematology / Oncology Did not tolerate Keytruda Moderate to severe aortic stenosis Continue to follow with Cardiology Gouty arthropathy Dyslipidemia, goal LDL below 70 Continue Atorvastatin BPH with obstruction/lower urinary tract symptoms Continue Finasteride HTN, goal below 150/90 Continue Losartan, Losartan, and HCTZ Prediabetes Continue Trulicity SCOTT (generalized anxiety disorder) Continue Sertraline Essential tremor SANDRINE on CPAP Transaminitis Improving Nasal drainage - Saline Nasal Brussels 0.65 % Nasal Solution ([place]); Administer 1 Brussels into nostril every 6 hours as needed for Congestion. Melanoma of face (HCC) - CBC WITH WBC DIFFERENTIAL - COMPREHENSIVE METABOLIC PANEL - TSH WITH FREE T4 IF INDICATED Follow-up: Return if symptoms worsen or fail to improve. | Check-out note: Please schedule AWV for spring Sami Stephens DO 2:35 PM 07/19/2023 documented in this encounter Nursing Notes * Jenae Santos, RN - 07/19/2023 1:07 PM EST 2 week return States feeling better, but not good. Prednisone down to 5 mg daily and feels better. Still getting a lot of thick muc from nose-red/brown/clear C-pap causing a dry mouth documented in this encounter Plan of Treatment Upcoming Encounters Date Type Department Care Team (Late st Contact Info) Description 07/20/2023 10:45 AM EST Office Visit Hematology/Oncology [facility] [address] [facility] [place] [address] Rasheed Maldonado MD [address] [place] [address] 08/10/2023 3:00 PM EST Office Visit Family Practice [address] [facility] [address] [place] [address] Sami Stephens, [address] [facility] [address] 08/30/2023 11:15 AM EST Office Visit Dermatology [facility] [address] [place] [address] Nik Vieira MD [address] [facility] [place] [address] 08/31/2023 3:15 PM EST Procedure Only Urology, [facility] [address] [facility] [place] [address] Marbin Ivan MD [address] [place] [address] 09/22/2023 1:15 PM EST Office Visit Hematology/Oncology [facility] [address] [place] [address] Rasheed Maldonado MD 200 [place] [address] 10/18/2023 10:00 AM EST Nurse Only Ancillary [address] [place] [address] College, Nurse Annual Wellness Visit [address] [place] [address] 03/12/2024 1:10 PM EDT Office Visit Dermatology [facility] [place] [address] [place] [address] Natasha Nova PA-C [address] [facility] [place] [address] 03/13/2024 1:30 PM EDT Office Visit Cardiology, [facility] [address] [place] [address] Angela Peter CRNP [address] [place] [phone] 05/17/2024 10:00 AM EDT Office Visit Sleep Disorders Ctr [facility] [address] [place] [phone] Kathrine Haile CRNP [address] [place] [address] Pending Results Name Type Priority Associated Diagnoses Date /Time CBC WITH WBC DIFFERENTIAL Lab STAT Melanoma of face (HCC) 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) 07/19/2023 1:46 PM EST COMPREHENSIVE METABOLIC PANEL Lab STAT Melanoma of face (HCC) 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) 07/19/2023 1:46 PM EST TSH WITH FREE T4 IF INDICATED Lab STAT Melanoma of face (HCC) 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) 07/19/2023 1:46 PM EST CBC Lab STAT Melanoma of face (HCC) 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) 07/19/2023 1:46 PM EST DIFFERENTIAL, AUTOMATED Lab STAT Melanoma of face (HCC) 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) 07/19/2023 1:46 PM EST Health Maintenance Due Date Last Done Comments COVID-19 Vaccine ( season) 2023 05/18/2022, 02/02/2022, 06/08/2021, Additional history exists HbA1c 05/27/2024 05/27/2023, 01/14, 10/18/2022, Additional history exists Depression Screening 07/05/2024 07/19/2023 GFR 07/13/2024 07/13/2023, 06/16, 06/30/2023, Additional history exists Albumin/Creatinine Ratio 01/08/2025 01/08/2022, [...] this encounter Medical Devices Implanted Type Area Drain Tile Machine Operator Device Identifier Shelf Expiration Date Model / Serial / Lot Port Implant W/8f Poly Cath - [id number] Implanted:Qty: 1 on 05/12/2023 at [facility] : PERIPHERAL VASCULAR [id number] 07/14/2024 [id number] / / [id number] documented as of this encounter Visit Diagnoses Diagnosis Drug-induced pneumonitis- Primary Pneumonia, organism unspecified Acute respiratory failure with hypoxia (HCC) Acute respiratory failure 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) Secondary malignant neoplasm of other specified sites Moderate to severe aortic stenosis Gouty arthropathy Gouty arthropathy, unspecified Dyslipidemia, goal LDL below 70 Other and unspecified hyperlipidemia BPH with obstruction/lower urinary tract symptoms Hypertrophy of prostate with urinary obstruction and other lower urinary tract symptoms (LUTS) HTN, goal below 150/90 Prediabetes Other abnormal glucose SCOTT (generalized anxiety disorder) Generalized anxiety disorder Essential tremor Essential and other specified forms of tremor SANDRINE on CPAP Obstructive sleep apnea (adult) (pediatric) Transaminitis Nonspecific elevation of levels of transaminase or lactic acid dehydrogenase (LDH) Nasal drainage Other diseases of nasal cavity and sinuses Melanoma of face (HCC) Malignant melanoma of skin of other and unspecified parts of face documented in this encounter Advance Directives Latest [...] Advance Directives occurred with: Patient Care Teams Corduroy Brusher Operator Relationship Specialty Start Date End Date Sami Stephens DO [address] [facility] [address] PCP - General Internal Medicine 01/08/22 documented as of this encounter
--- OUTSIDE RECORDS SUMMARY | 2023-09-12 16:20 | External Medical Summary ---
Author Name Unknown Address Unknown Organization K09:[facility] - [address] [place] [address] Laboratory Report Ordering Provider Test Date Status EMANI CAMPBELL 07/13/2023 11:37:04 Final Observation Date Value Abnormality Reference (Units ) Status SYNC LEUKOCYTES IN BLOOD BY AUTOMATED COUNT 07/13/2023 11:37:04 11.01 Above high normal 4.00-10.80 (K/uL) Final Neutrophils/100 leukocytes in Blood by Manual count 07/13/2023 11:37:04 87.0 Above high normal 40.0-75.0 (%) Final Lymphocytes/100 leukocytes in Blood by Manual count 07/13/2023 11:37:04 8.0 Below low normal 18.0-42.0 (%) Final Monocytes/100 leukocytes in Blood by Manual count 07/13/2023 11:37:04 2.0 1.0-11.0 (%) Final Eosinophils/100 leukocytes in Blood by Manual count 07/13/2023 11:37:04 2.0 0.0-6.0 (%) Final Basophils/100 leukocytes in Blood by Manual count 07/13/2023 11:37:04 1.0 0.0-2.0 (%) Final Neutrophils [#/volume] in Blood by Manual count 07/13/2023 11:37:04 9.58 Above high normal 1.80-7.70 (K/uL) Final Lymphocytes [#/volume] in Blood by Manual count 07/13/2023 11:37:04 0.88 Below low normal 1.00-4.80 (K/uL) Final Monocytes [#/volume] in Blood by Manual count 07/13/2023 11:37:04 0.22 0.00-1.10 (K/uL) Final Eosinophils [#/volume] in Blood by Manual count 07/13/2023 11:37:04 0.22 0.00-0.70 (K/uL) Final Basophils [#/volume] in Blood by Manual count 07/13/2023 11:37:04 0.11 0.00-0.20 (K/uL) Final Nucleated erythrocytes/100 leukocytes [Ratio] in Blood by Automated count 07/13/2023 11:37:04 Final Performing Location [facility] - [address] [place] [address]
--- OUTSIDE RECORDS SUMMARY | 2023-09-12 16:20 | External Medical Summary | Summary of Care ---
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 Taper per Dr Maldonado based on lab results. 100 Tablet 1 06/09/2023 Active Additional Information Patient taking differently: 20 mgOral Daily(AM), Taper per Dr Maldonado based on lab results, Reported on 07/01/2023 Sulfamethoxazole-Tr imethoprim 800-160 MG Oral Tablet (Bactrim DS)Indications:[place] 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) [...] the morning. 30 Capsule 5 07/01/2023 Active documented as of this encounter (statuses as of 07/13/2023) Active Problems Problem Noted Date Diagnosed Date [...] as of this encounter (statuses as of 07/13/2023) Immunizations Name Administration Dates Next Due COVID-19 mRNA, LNP-s, No Pre serve, 2-Dose Series (Moderna) 09/23/2020,08/29/2020 COVID-19, mRNA, LNP-s, PF, B ooster, 100mcg/0.5mg (Moderna) 02/02/2022,06/08/2021 Covid-19, Mrna, Lnp-s, Pf, B ivalent, 50 Mcg, IM, 12 yrs and above (Moderna) 05/18/2022 Pneumococcal Conjugate Vacci ne, 20-valent ([id number]) 04/12/2022 Seasonal Influenza, Quadriva lent Hd (Fluzone [...] Care Team (Late st Contact Info) Description 07/13/2023 1:00 PM EST Nurse Only Hematology/Oncology [facility] [address] [place] [address] Jordana, Nurse Hem Onc [facility] [place] [address] Arrived 07/19/2023 1:00 PM EST Office Visit Family Practice [address] [place] [address] 293 [place] [address] Sami Stephens, 293 [facility] [place] [address] 07/20/2023 10:00 AM EST Office Visit Cardiology, [facility] 132 [place] [address] Francisco Sharma, DO 132 [place] [address] 07/20/2023 10:45 AM EST Office Visit Hematology/Oncology [facility] [address] [place] [address] Rasheed Maldonado MD [address] [place], [place] [address] 08/10/2023 3:00 PM EST Office Visit Family Practice 65 [facility] 293 [place] [address] Sami Stephens, DO 293 [facility] [place] [address] 08/30/2023 11:15 AM EST Office Visit Dermatology [facility] [address] [place] [address] Nik Vieira MD [address] [place] [address] 08/31/2023 3:15 PM EST Procedure Only Urology, [facility] 132 [facility] [place] [address] Marbin Ivan MD 27 [facility] [address] [place] [address] 09/22/2023 1:15 PM EST Office Visit Hematology/Oncology [facility] [address] [place] [address] Rasheed Maldonado MD [address] [place] [address] 03/12/2024 1:10 PM EDT Office Visit Dermatology [facility] [place] [address] [place] [address] Natasha Nova PA-C [address] [place] [address] 03/13/2024 1:30 PM EDT Office Visit Cardiology, [facility] 132 [facility] [place] [address] Angela Peter CRNP 400 [facility] [place] [address] 05/17/2024 10:00 AM EDT Office Visit Sleep Disorders Ctr 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) 07/13/2023 11:37 AM EST DIFFERENTIAL, AUTOMATED Lab STAT Melanoma of face (HCC) 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) 07/13/2023 11:37 AM EST Health Maintenance Due Date Last Done Comments COVID-19 Vaccine ( season) 2023 05/18/2022, 02/02/2022, 06/08/2021, Additional history exists HbA1c 05/27/2024 05/27/2023, 01/14, 10/18/2022, Additional history exists Depression Screening 07/05/2024 07/05/2023 GFR 07/06/2024 07/06/2023, 06/15, 06/22/2023, Additional history exists Albumin/Creatinine Ratio 01/08/2025 01/08/2022, [...] this encounter Medical Devices Implanted Type Area General Manager Food Device Identifier Shelf Expiration Date Model / Serial / Lot Port Implant W/8f Poly Cath - [id number] Implanted:Qty: 1 on 05/12/2023 at [facility] CR BARD : PERIPHERAL VASCULAR [id number] 07/14/2024 [id number] / / [id number] documented as of this encounter Visit Diagnoses [...] Advance Directives occurred with: Patient Care Teams Trolley Operator Relationship Specialty Start Date End Date Sami Stephens DO [address] [place] [address] PCP - General Internal Medicine 01/08/22 documented as of this encounter
--- OUTSIDE RECORDS SUMMARY | 2023-09-12 16:20 | External Medical Summary | Summary of Care ---
Author Name Unknown Organization [facility] Address [address] [facility] [place] [address] Phone [phone] Care Team Providers Care Loss Prevention Agent Name Role Phone Sami Stephens DO Primary Care Provider [phone] Reason for Visit * Reason Comments Medication Refill Encounter Details Date Type Department Care Team (Late st Contact Info) Description 07/16/2023 Refill Urology, [facility] 132 [facility] [place] [address] Marbin Bautista MD [address] [place] [address] [place] [address] Allergies Active Allergy Reactions Criticality Noted Date Comments Pembrolizumab 07/01/2023 Penicillins 03/22/2023 Patient states had a reaction many years ago - that it was the "horse serum kind." documented as of this encounter (statuses as of 07/18/2023) Medications Medication Sig Dispensed Refills Start Date [...] MORNING 100 Tablet 3 10/19/2022 4 Active Additional Information Patient not taking.Reported on 06/10/2023 Finasteride 5 MG Oral Tablet (Proscar)Indicatio ns:BPH [...] TO ACCESSING. 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 Taper per Dr Maldonado based on lab results. 14 Tablet 0 07/13/2023 Active Solifenacin Succinate 5 MG Oral Tablet (VESIcare) TAKE ONE TABLET BY MOUTH EVERY DAY NEEDED (URINARY FREQUENCY 90 Tablet 2 07/18/2023 4 Active Solifenacin Succinate 5 MG Oral Tablet (VESIcare) TAKE ONE TABLET BY MOUTH EVERY DAY NEEDED (URINARY FREQUENCY 90 Tablet 2 11/08/2022 3 Discontinue d(Refill) documented as of this encounter (statuses as of 07/18/2023) Active Problems Problem Noted Date Diagnosed Date [...] as of this encounter (statuses as of 07/18/2023) Immunizations Name Administration Dates Next Due COVID-19 mRNA, LNP-s, No Pre serve, 2-Dose Series (Moderna) 09/23/2020,08/29/2020 COVID-19, mRNA, LNP-s, PF, B ooster, 100mcg/0.5mg (Moderna) 02/02/2022,06/08/2021 Covid-19, Mrna, Lnp-s, Pf, B ivalent, 50 Mcg, IM, 12 yrs and above (Moderna) 05/18/2022 Pneumococcal Conjugate Vacci ne, 20-valent ([id number]) 04/12/2022 Seasonal Influenza, Quadriva lent Hd (Fluzone [...] encounter Miscellaneous Notes * Telephone Encounter - Marbin Bautista MD - 07/18/2023 12:05 PM EST Signed Prescriptions: Disp Refills Solifenacin Succinate 5 MG Oral Tablet (VE*90 Tab*2 Sig: TAKE ONE TABLET BY MOUTH EVERY DAY NEEDED (URINARY FREQUENCY Authorizing Provider: MARBIN BAUTISTA * Telephone Encounter - Mara Montenegro LPN - 07/18/2023 8:40 AM ESTPending Prescriptions: Disp Refills Solifenacin Succinate 5 MG Oral Tablet (VE*90 Tab*2 Sig: TAKE ONE TABLET BY MOUTH EVERY DAY NEEDED (URINARY FREQUENCY * Telephone Encounter - Mara Montenegro LPN - 07/18/2023 8:40 AM EST Please refill the requested medication(s). Solifenacin 03/02/2023 (in office), Visit date not found (telemedicine) 08/31/2023 Review of patient's allergies indicates: Allergen Reactions Keytruda [Pembrolizumab] Penicillins Patient states had a reaction many years ago - that it was the "horse serum kind." documented in this encounter Plan of Treatment Upcoming Encounters Date Type Department Care Team (Late st Contact Info) Description 07/19/2023 1:00 PM EST Office Visit Family [address] [place] [address] Sami Stephens, DO 293 [place] [address] 07/20/2023 10:00 AM EST Office Visit Cardiology, [facility] 132 [place] [address] Francisco Sharma, DO 132 [place] [address] 07/20/2023 10:45 AM EST Office Visit [facility]ematology/Oncology [facility] [address] Rasheed Maldonado MD 200 [place] [address] 08/10/2023 3:00 PM EST Office Visit [address] [place] [address] Sami Stephens, DO 293 [place] [address] 08/30/2023 11:15 AM EST Office Visit Dermatology [facility] 200 [facility] [address] Nik Vieira MD 200 [place] [address] 08/31/2023 3:15 PM EST Procedure Only [facility]rology, [facility] 132 [facility] [place] [address] Marbin Bautista MD [address] [place] [address] [place] [address] 09/22/2023 1:15 PM EST Office Visit Hematology/Oncology [facility] 200 [facility] [address] Rasheed Maldonado MD 200 [facility] [address] 03/12/2024 1:10 PM EDT Office Visit Dermatology [facility] [place] [address] [place] [address] Natasha Nova PA-C [address] [place] [address] 03/13/2024 1:30 PM EDT Office Visit Cardiology, [facility] 132 [place] [address] Angela Peter CRNP [address] [place] [address] [place] [phone] 05/17/2024 10:00 AM EDT Office Visit Sleep Disorders Ctr [facility] 132 [place] [phone] Kathrine Haile CRNP [address] [facility] [address] Health Maintenance Due Date Last Done Comments COVID-19 Vaccine (2022- season) 2023 05/18/2022, 02/02/2022, 06/08/2021, Additional history exists HbA1c 05/27/2024 05/27/2023, 01/14, 10/18/2022, Additional history exists Depression Screening 07/05/2024 07/05/2023 GFR 07/13/2024 07/13/2023, 06/16, 06/30/2023, Additional history [...] this encounter Medical Devices Implanted Type Area Die Cutter Apprentice Device Identifier Shelf Expiration Date Model / Serial / Lot Port Implant W/8f Poly Cath - [id number] Implanted:Qty: 1 on 05/12/2023 at [facility] CR BARD : PERIPHERAL VASCULAR [id number] 07/14/2024 [id number] / / [id number] documented as of this encounter Advance Directives [...] Advance Directives occurred with: Patient Care Teams Loss Prevention Agent Relationship Specialty Start Date End Date Sami Stephens DO [address] [place] [address] PCP - General Internal Medicine 01/08/22 documented as of this encounter
--- OUTSIDE RECORDS SUMMARY | 2023-09-12 16:20 | External Medical Summary | Summary of Care ---
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 Taper per Dr Maldonado based on lab results. 100 Tablet 1 06/09/2023 3 Discontinue d(Refill) documented as of this [...] (Moderna) 05/18/2022 Pneumococcal Conjugate Vacci ne, 20-valent ([id number]) 04/12/2022 Seasonal Influenza, Quadriva lent Hd (Fluzone [...] encounter Miscellaneous Notes * Telephone Encounter - Rasheed Maldonado MD - 07/13/2023 12:24 PM EST E-prescribed Rasheed Maldonado MD Hem/Onc * Telephone Encounter - Linda Sears RN - 07/13/2023 12:16 PM EST Pended 5mg tablets of prednisone to [facility]. documented in this encounter Plan of Treatment Upcoming Encounters Date Type Department Care Team (Late st Contact Info) Description 07/13/2023 1:00 PM EST Nurse Only Hematology/Oncology [facility] [address] [place] [address] [place], Nurse Hem Onc [facility] [address] [place] [address] Arrived 07/19/2023 1:00 PM EST Office Visit Family Practice 65 [facility] 293 [place] [address] Sami Stephens DO 293 [facility], [place] [address] 07/20/2023 10:00 AM EST Office Visit Cardiology, [facility] 132 [facility] [place] [address] Francisco Sharma DO 132 [place] [address] 07/20/2023 10:45 AM EST Office Visit Hematology/Oncology [facility] [address] [place] [address] Rasheed Maldonado MD [address] [place] [address] 08/10/2023 3:00 PM EST Office Visit Family Practice [address] [place] [address] 293 [place] [address] Sami Stephens, DO 293 [place] [address] 08/30/2023 11:15 AM EST Office Visit Dermatology [facility] [address] [place] [address] Nik Vieira MD [address] [place], [place] [address] 08/31/2023 3:15 PM EST Procedure Only Urology, [facility] 132 [place] [address] Marbin Ivan MD 27 [facility] [address] [place] [address] 09/22/2023 1:15 PM EST Office Visit Hematology/Oncology [facility] [address] [place], [place] [address] Rasheed Maldonado MD [address] [place], [place] [address] 03/12/2024 1:10 PM EDT Office Visit Dermatology [facility] [place] [address] [place] [address] Natasha Nova PA-C [address] [facility] [place] [address] 03/13/2024 1:30 PM EDT Office Visit Cardiology, [facility] 132 [facility] [place] [address] Angela Peter CRNP [address] [place] [address] 05/17/2024 10:00 AM EDT Office Visit Sleep Disorders Ctr [facility] 132 [facility] [place] [phone] Kathrine Haile CRNP 132 [facility] [place] [address] Health Maintenance Due Date Last Done Comments [...] this encounter Medical Devices Implanted Type Area It Help Desk Technician Device Identifier Shelf Expiration Date Model / Serial / Lot Port Implant W/8f Poly Cath - [id number] Implanted:Qty: 1 on 05/12/2023 at [facility] CR BARD : PERIPHERAL VASCULAR [id number] 07/14/2024 [id number] / / [id number] documented as of this encounter Visit Diagnoses Diagnosis 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
--- OUTSIDE RECORDS SUMMARY | 2023-09-12 16:20 | External Medical Summary | Summary of Care ---
Author Name Unknown Organization [facility] Address [address] [place] [address] Phone [phone] Care Team Providers Care Property Controller Name Role Phone Sami Stephens DO Primary Care Provider [phone] Reason for Visit * Reason Comments Outpatient Testing Encounter Details Date Type Department Care Team (Late st Contact Info) Description 07/06/2023 12:00 PM EST Laboratory Laboratory [facility] [place] [address] [place] [address] 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); Hypokalemia Allergies Active Allergy Reactions Criticality Noted Date Comments Pembrolizumab 07/01/2023 Penicillins 03/22/2023 Patient states had a reaction many years ago - that it was the "horse serum kind." documented as of this encounter (statuses as of 07/06/2023) Medications Medication Sig Dispensed Refills Start Date [...] Sulfamethoxazole-Tr imethoprim 800-160 MG Oral Tablet (Bactrim DS)Indications:[place] 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) [...] as of this encounter (statuses as of 07/06/2023) Active Problems Problem Noted Date Diagnosed Date [...] as of this encounter (statuses as of 07/06/2023) Immunizations Name Administration Dates Next Due COVID-19 mRNA, LNP-s, No Pre serve, 2-Dose Series (Moderna) 09/23/2020,08/29/2020 COVID-19, mRNA, LNP-s, PF, B ooster, 100mcg/0.5mg (Moderna) 02/02/2022,06/08/2021 Covid-19, Mrna, Lnp-s, Pf, B ivalent, 50 Mcg, IM, 12 yrs and above (Moderna) 05/18/2022 Pneumococcal Conjugate Vacci ne, 20-valent ([id number]) 04/12/2022 Seasonal Influenza, Quadriva lent Hd (Fluzone [...] Date Recorded PHQ Adult Total Score 0 07/01/2023 Hunger Vital Sign Answer Date Recorded Within the past 12 months, y ou worried that your food would run out before you got the money to buy more. Never true 07/01/20 23 Within the past 12 months, t he food you bought just didn't last and you didn't have money to get more. Never true 07/01/2023 Sex and Gender Information Value Date Recorded [...] Care Team (Late st Contact Info) Description 07/06/2023 1:00 PM EST Nurse Only Hematology/Oncology [facility] [address] [place] [address] [place], Nurse Hem Onc [facility] 200 [facility] [place] [address] Arrived 07/19/2023 1:00 PM EST Office Visit Family Practice [address] [place] [address] 293 [place] [phone] Sami Stephens, 293 [facility], [place] [address] 07/20/2023 10:00 AM EST Office Visit Cardiology, [facility] [address] Francisco Sharma, DO [facility] [address] 07/20/2023 10:45 AM EST Office Visit [facility]ology[facility] [address] [place] [address] Rasheed Maldonado MD [address] [place] [address] 08/10/2023 3:00 PM EST Office Visit Family Practice [address] [place] [address] 293 [place] [phone] Sami Stephens, DO 293 [facility], [place] [address] 08/30/2023 11:15 AM EST Office Visit Dermatology [facility] [address] [place] [address] Nik Vieira MD [address] [place] [address] 08/31/2023 3:15 PM EST Procedure Only Urology, [facility] 132 [facility] [place] [address] Marbin Ivan MD [address] [address] [place] [address] 09/22/2023 1:15 PM EST Office Visit Hematology/Oncology [facility] [address] [place] [address] Rasheed Maldonado MD [address] [place] [address] 03/12/2024 1:10 PM EDT Office Visit Dermatology [facility] [place] [address] [place] [address] Natasha Nova PA-C [address] [place] [address] 03/13/2024 1:30 PM EDT Office Visit Cardiology, [facility] 132 [facility] [place] [address] Angela Peter CRNP 400 [facility] [place] [phone] 05/17/2024 10:00 AM EDT Office Visit Sleep Disorders [facility] 132 [facility] [place] [phone] Kathrine Haile CRNP 132 [facility] [place] [address] Pending Results Name Type Priority Associated Diagnoses Date /Time COMPREHENSIVE METABOLIC PANEL Lab STAT Melanoma of face (HCC) 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) 07/06/2023 11:39 AM EST Health Maintenance Due Date Last Done Comments COVID-19 Vaccine ( season) 2023 05/18/2022, 02/02/2022, 06/08/2021, Additional history exists HbA1c 05/27/2024 05/27/2023, 01/14, 10/18/2022, Additional history exists GFR 06/30/2024 06/30/2023, 03/2023, 06/09/2023, Additional history exists Depression Screening 07/05/2024 07/05/2023 Albumin/Creatinine Ratio 01/08/2025 01/08/2022, 03/16 DTaP,Tdap,and Td [...] this encounter Medical Devices Implanted Type Area Co Founder And Chairman Device Identifier Shelf Expiration Date Model / Serial / Lot Port Implant W/8f Poly Cath - [id number] Implanted:Qty: 1 on 05/12/2023 at [facility] CR BARD : PERIPHERAL VASCULAR [id number] 07/14/2024 [id number] / / [id number] documented as of this encounter Procedures Procedure Name Priority Date/Time Associated Diagnosis Comments DIFFERENTIAL, AUTOMATED STAT 07/06/2023 11:39 AM EST Melanoma of face (HCC) 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) CBC STAT 07/06/2023 11:39 AM EST Melanoma of face (HCC) 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) CBC STAT 07/06/2023 11:39 AM EST Melanoma of face (HCC) 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) DIFFERENTIAL, TECHNOLOGIST REVIEW Routine 07/06/2023 11:39 AM EST Melanoma of face (HCC) 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) documented in this encounter Results * DIFFERENTIAL, TECHNOLOGIST REVIEW (07/06/2023 11:39 AM EST) nRs 07/06/2023 11:59 AM EST [facility] 56- Blood Venous blood specimen / Unknown Venipuncture / Unknown 07/06/2023 11:39 AM EST 07/06/2023 11:40 AM EST Rasheed Maldonado MD LAB BLOOD ORDERABLES [facility] 56- [address] [place] [address] * (ABNORMAL) DIFFERENTIAL, AUTOMATED (07/06/2023 11:39 AM EST) WBC 12.79(H) 4.00 - 10.80 K/uL 07/06/2023 11:59 AM EST [facility] 56- Neutrophils % 74.5 40.0 - 75.0 % 07/06/2023 11:59 AM EST [facility] 56- Lymphocytes % 15.9(L) 18.0 - 42.0 % 07/06/2023 11:59 AM EST [facility] 56- Monocytes % 8.1 1.0 - 11.0 % 07/06/2023 11:59 AM EST [facility] 56- Eosinophils % 1.2 0.0 - 6.0 % 07/06/2023 11:59 AM EST [facility] 56- Basophils % 0.3 0.0 - 2.0 % 07/06/2023 11:59 AM [facility] 56-02 Absolute Neutrophils 9.54(H) 1.80 - 7.70 K/uL 07/06/2023 11:59 AM [facility] 56- Absolute Lymphocytes 2.03 1.00 - 4.80 K/ul 07/06/2023 11:59 AM [facility] 56- Absolute Monocytes 1.03 0.00 - 1.10 K/uL 07/06/2023 11:59 AM [facility] 56- Absolute Eosinophils 0.15 0.00 - 0.70 K/uL 07/06/2023 11:59 AM [facility] 56- Absolute Basophils 0.04 0.00 - 0.20 K/uL 07/06/2023 11:59 AM [facility] 56- Blood Venous blood specimen / Unknown Venipuncture / Unknown 07/06/2023 11:39 AM EST 07/06/2023 11:40 AM EST Rasheed Maldonado MD LAB BLOOD ORDERABLES Performing Organization Address City/State/[facility] Co de Phone Number [facility] 56- [address] [place] [address] * (ABNORMAL) CBC (07/06/2023 11:39 AM EST) WBC 12.79(H) 4.00 - 10.80 K/uL 07/06/2023 11:59 AM [facility] 56- RBC 5.09 4.50 - 5.25 M/uL 07/06/2023 11:59 AM [facility] 56- HGB 15.7 14.0 - 16.8 g/dL 07/06/2023 11:59 AM [facility] 56- HCT 48.0 40.0 - 48.4 % 07/06/2023 11:59 AM [facility] 56- MCV 94.3 82.0 - 99.5 fL 07/06/2023 11:59 AM [facility] 56- MCH 30.8 27.0 - 34.0 pg 07/06/2023 11:59 AM [facility] 56 MCHC 32.7 32.0 - 36.0 g/dL 07/06/2023 11:59 AM EST [facility] 56 RDW 15.1 11.5 - 15.5 % 07/06/2023 11:59 AM EST [facility] 56 PLT 175 140 - 400 K/uL 07/06/2023 11:59 AM EST [facility] 56 MPV 9.1 6.6 - 11.1 fL 07/06/2023 11:59 AM EST [facility] 56 Blood Venous blood specimen / Unknown Venipuncture / Unknown 07/06/2023 11:39 AM EST 07/06/2023 11:40 AM EST Rasheed Maldonado MD LAB BLOOD ORDERABLES [facility] [address] [place] [address] documented in this encounter Visit Diagnoses Diagnosis Melanoma of face (HCC) Malignant melanoma of skin of other and unspecified parts of face 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
--- OUTSIDE RECORDS SUMMARY | 2023-09-12 16:20 | External Medical Summary | Summary of Care ---
Author Name Unknown Organization [facility] Address [address] [place] [address] Phone [phone] Care Team Providers Care Pressure Steamer Tender Name Role Phone Sami Stephens DO Primary Care Provider Reason for Visit * Reason Comments Follow Up Encounter Details Date Type Department Care Team (Late st Contact Info) Description 07/19/2023 1:00 PM EST Office Visit Family Practice [address] [facility] [place] [address] [place] [phone] Sami Stephens DO [address] [place] [address] Drug-induced pneumonitis*; Acute respiratory failure with hypoxia [...] Sulfamethoxazole-Tr imethoprim 800-160 MG Oral Tablet (Bactrim DS)Indications:[place] 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) [...] Tablet 2 07/18/2023 07/17/2024 Active Saline Nasal Brilliant 0.65 % Nasal Solution ([place])Indications: Nasal drainage Administer 1 Brilliant into nostril every 6 hours as needed [...] (Moderna) 05/18/2022 Pneumococcal Conjugate Vacci ne, 20-valent ([id number]) 04/12/2022 Seasonal Influenza, Quadriva lent Hd (Fluzone [...] obesity due to excess calories ([facility]) E66.01 Gouty arthropathy M10.9 Dyslipidemia, goal LDL below 70 E78.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, N13.8 HTN, goal below 150/90 I10 Vitamin D deficiency E55.9 SANDRINE on CPAP G47.33 Body mass index (BMI) of 45.0 to 49.9 in adult ([facility]) Z68.42 Prediabetes R73.03 SCOTT (generalized anxiety disorder) F41.1 Moderate to severe aortic stenosis I35.0 Bradycardia, sinus R00.1 1st degree AV block I44.0 Sinus pause I45.5 Essential tremor G25.0 Melanoma of face ([facility]) C43.30 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 PM SM Vitamin D3 100 MCG (4000 UT) Oral Capsule (Cholecalciferol) Take by mouth 5,000 Units daily . CPAP every night at bedtime . Dulaglutide 1.5 MG/0.5ML Subcutaneous Solution Pen-injector ([employer]) INJECT 1.5MG UNDER THE SKINONCE WEEKLY (Patient [...] (URINARY FREQUENCY 90 Tablet 2 Saline Nasal Brilliant 0.65 % Nasal Solution ([place]) Administer 1 Brilliant into nostril every 6 hours as needed [...] performed by Tito Ortega MD at OR [facility] CATARACT SURGERY,COMPLEX 2016 BOTH EYES COLONOSCOPY has had several IDENTIFY SENTINEL NODE, RADIOACTIVE TRACER Left 04/11/2023 INJECTION PROCEDURE FOR IDENTIFICATION SENTINEL NODE performed by Tito Ortega MD at OR [facility] INFORMATION tonsils as a child IR VENOUS ACCESS MEDIPORT 05/12/2023 OTHER 2019 VIRECTOMY OD OTHER ACT [address] Townsend (08-21-21) PROCEDURE - GENERAL Left 11/23/2021 Left Inguinal hernia surgery by Dr Mak Fisher PROSTATE, LASER VAPORIZATION N/A 07/21/2022 LASER VAPORIZATION PROSTATE performed by Marbin Ivan MD at OR [facility] REMOVAL OF PROSTATE (TURP) N/A 07/21/2022 TRANSURETHRAL RESECTION PROSTATE ELECTROSURGICAL performed by Marbin Ivan MD at OR [facility] Review of patient's allergies indicates: [...] Transaminitis Improving Nasal drainage - Saline Nasal Brilliant 0.65 % Nasal Solution ([place]); Administer 1 Brilliant into nostril every 6 hours as needed [...] 07/25/2023 2:00 PM EST Office Visit Cardiology, [facility] 132 [facility] [place] [address] Francisco Sharma, DO 132 [facility] [place] [address] 08/10/2023 1:00 PM EST Laboratory Laboratory [facility] [address] [place], [place] [phone] [place], Lab [facility] [address] [place], [place] [address] 08/10/2023 1:30 PM EST Nurse Only Hematology/Oncology [facility] [address] [place], [place] [address] [place], Nurse Hem Onc [facility] [address] [place], [place] [address] 08/10/2023 3:00 PM EST Office Visit Family Practice [address] [place] [address] 293 [place] [address] Sami Stephens DO [address] [place] [address] 08/30/2023 11:15 AM EST Office Visit Dermatology [facility] [address] [place], [place] [address] Nik Vieira MD 200 [place] [address] 08/31/2023 3:15 PM EST Procedure Only Urology, [facility] 132 [facility] [place] [address] Marbin Ivan MD 27 [facility] [address] [place] [address] 09/22/2023 1:15 PM EST Office Visit Hematology/Oncology [facility] [address] [place], [place] [address] Rasheed Maldonado MD [address] [place], [place] [address] 10/18/2023 10:00 AM EST Nurse Only Ancillary [address] [place] [address] 293 [facility], [place] [address] College, Nurse Annual Wellness Visit [address] [place] [place] [address] 11/18/2023 10:45 AM EDT Office Visit Hematology/Oncology [facility] [place] [address] [place] [address] Rasheed Maldondao MD [address] [place] [address] 03/12/2024 1:10 PM EDT Office Visit Dermatology [facility] [address] [place] [address] Natasha Nova PA-C [address] [facility] [address] 03/13/2024 1:30 PM EDT Office Visit Cardiology, [facility] 132 [facility] [place] [address] Angela Peter CRNP 400 [facility] [place] [phone] 05/17/2024 10:00 AM EDT Office Visit Sleep Disorders Ctr [facility] 132 [facility] [place] [phone] Kathrine Haile CRNP 132 [facility] [place] [address] Health Maintenance Due Date Last Done Comments [...] this encounter Medical Devices Implanted Type Area String Laster Device Identifier Shelf Expiration Date Model / Serial / Lot Port Implant W/8f Poly Cath - [id number] Implanted:Qty: 1 on 05/12/2023 at [facility] CR BARD : PERIPHERAL VASCULAR [id number] 07/14/2024 [id number] / / [id number] documented as of this encounter Procedures Procedure Name Priority Date/Time Associated Diagnosis Comments DIFFERENTIAL, AUTOMATED STAT 07/19/2023 1:46 PM EST Melanoma of face (HCC) 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) TSH WITH FREE T4 IF INDICATED STAT 07/19/2023 1:46 PM EST Melanoma of face (HCC) 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) COMPREHENSIVE METABOLIC PANEL STAT 07/19/2023 1:46 PM EST Melanoma of face (HCC) 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) CBC STAT 07/19/2023 1:46 PM EST Melanoma of face (HCC) 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) CBC STAT 07/19/2023 1:46 PM EST Melanoma of face (HCC) 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) documented in this encounter Results * (ABNORMAL) DIFFERENTIAL, AUTOMATED (07/19/2023 1:46 PM EST) WBC 10.15 4.00 - 10.80 K/uL 07/19/2023 10:37 PM EST [facility] Neutrophils % 76.6(H) 40.0 - 75.0 % 07/19/2023 10:37 PM EST [facility] Lymphocytes % 11.8(L) 18.0 - 42.0 % 07/19/2023 10:37 PM EST [facility] Monocytes % 8.5 1.0 - 11.0 % 07/19/2023 10:37 PM EST [facility] Eosinophils % 1.7 0.0 - 6.0 % 07/19/2023 10:37 PM EST [facility] Basophils % 0.9 0.0 - 2.0 % 07/19/2023 10:37 PM EST [facility] Immature Granulocytes % 0.5 0.0 - 2.0 % 07/19/2023 10:37 PM EST [facility] Absolute Neutrophils 7.78(H) 1.80 - 7.70 K/uL 07/19/2023 10:37 PM EST [facility] Absolute Lymphocytes 1.20 1.00 - 4.80 K/ul 07/19/2023 10:37 PM EST [facility] Absolute Monocytes 0.86 0.00 - 1.10 K/uL 07/19/2023 10:37 PM EST [facility] Absolute Eosinophils 0.17 0.00 - 0.70 K/uL 07/19/2023 10:37 PM EST [facility] Absolute Basophils 0.09 0.00 - 0.20 K/uL 07/19/2023 10:37 PM EST [facility] Absolute Immature Granulocytes 0.05 0.00 - 0.20 K/uL 07/19/2023 10:37 PM EST [facility] Blood Venous blood specimen / Unknown Venipuncture / Unknown 07/19/2023 1:46 PM EST 07/19/2023 1:46 PM EST Rasheed Maldonado MD LAB BLOOD ORDERABLES LABORATORY [facility] [address] [place] [address] * (ABNORMAL) CBC (07/19/2023 1:46 PM EST) WBC 10.15 4.00 - 10.80 K/uL 07/19/2023 10:37 PM EST [facility] RBC 5.20 4.50 - 5.25 M/uL 07/19/2023 10:37 PM EST [facility] HGB 15.8 14.0 - 16.8 g/dL 07/19/2023 10:37 PM EST [facility] HCT 49.4(H) 40.0 - 48.4 % 07/19/2023 10:37 PM EST [facility] MCV 95.0 82.0 - 99.5 fL 07/19/2023 10:37 PM EST [facility] MCH 30.4 27.0 - 34.0 pg 07/19/2023 10:37 PM EST [facility] MCHC 32.0 32.0 - 36.0 g/dL 07/19/2023 10:37 PM EST [facility] RDW 14.4 11.5 - 15.5 % 07/19/2023 10:37 PM EST [facility] PLT 187 140 - 400 K/uL 07/19/2023 10:37 PM EST [facility] MPV 10.2 6.6 - 11.1 fL 07/19/2023 10:37 PM EST [facility] nRBCs 0 <=0 /100 WBCs 07/19/2023 10:37 PM EST [facility] Blood Venous blood specimen / Unknown Venipuncture / Unknown 07/19/2023 1:46 PM EST 07/19/2023 1:46 PM EST Rasheed Maldonado MD LAB BLOOD ORDERABLES LABORATORY [facility] [address] [place] [address] * TSH WITH FREE T4 IF INDICATED (07/19/2023 1:46 PM EST) TSH 2.87 0.27 - 4.20 uIU/mL 07/20/2023 3:41 AM EST [facility] Blood Venous blood specimen / Unknown Venipuncture / Unknown 07/19/2023 1:46 PM EST 07/19/2023 1:46 PM EST Rasheed Maldonado MD LAB BLOOD ORDERABLES LAB[facility]ATORY [facility] [address] [place] [address] * (ABNORMAL) COMPREHENSIVE METABOLIC PANEL (07/19/2023 1:46 PM EST) BUN 13 6 - 20 mg/dL 07/20/2023 3:14 AM EST [facility] Creatinine 1.3(H) 0.6 - 1.2 mg/dL 07/20/2023 3:14 AM EST [facility] Estimated Glomerular Filtration Rate 58(L) >=60 mL/min 07/20/2023 3:14 AM EST [facility] Comment:eGFR is calculated b ased on the CKD-EPI 2020 equation Sodium 141 135 - 146 mmol/L 07/20/2023 3:14 AM EST [facility] Potassium 4.2 3.5 - 5.1 mmol/L 07/20/2023 3:14 AM EST [facility] Chloride 100 98 - 107 mmol/L 07/20/2023 3:14 AM EST [facility] CO2 27 22 - 32 mmol/L 07/20/2023 3:14 AM EST [facility] Anion Gap 14 7 - 15 mmol/L 07/20/2023 3:14 AM EST [facility] Glucose 131(H) 70 - 120 mg/dL 07/20/2023 3:14 AM EST [facility] Albumin 4.2 3.8 - 5.0 g/dL 07/20/2023 3:14 AM EST [facility] AST 39 10 - 50 U/L 07/20/2023 3:14 AM EST [facility] Comment:Result may be falsel y elevated due to hemolysis. Alkaline Phosphatase 76 35 - 130 U/L 07/20/2023 3:14 AM EST [facility] Bilirubin, Total 0.6 <=1.2 mg/dL 07/20/2023 3:14 AM EST [facility] Calcium 9.8 8.4 - 10.2 mg/dL 07/20/2023 3:14 AM EST [facility] Protein 6.3 6.0 - 8.3 g/dL 07/20/2023 3:14 AM EST [facility] ALT 50 10 - 50 U/L 07/20/2023 3:14 AM EST [facility] Blood Venous blood specimen / Unknown Venipuncture / Unknown 07/19/2023 1:46 PM EST 07/19/2023 1:46 PM EST Rasheed Maldonado MD LAB BLOOD ORDERABLES [facility] [address] [place] [address] documented in this encounter Visit Diagnoses Diagnosis Drug-induced pneumonitis- [...] Advance Directives occurred with: Patient Care Teams Pressure Steamer Tender Relationship Specialty Start Date End Date Sami Stephens DO [address] [facility] [place] [address] PCP - General Internal Medicine 01/08/22 documented as of this encounter
--- OUTSIDE RECORDS SUMMARY | 2023-09-12 16:20 | External Medical Summary | Summary of Care ---
Author Name Unknown Organization [facility] Address [address] [facility] [place] [place] [address] Phone [phone] Care Team Providers Care Machinist Instructor Name Role Phone Sami Stephens DO Primary Care Provider [phone] Encounter Details Date Type Department Care Team (Late st Contact Info) Description 07/06/2023 1:00 PM EST Nurse Only Hematology/Oncology [facility] [place] [address] [place] [address] Jordana Nurse Hem Onc [facility] [address] [place] [address] Arrived Allergies Active Allergy Reactions Criticality Noted [...] Sulfamethoxazole-Tr imethoprim 800-160 MG Oral Tablet (Bactrim DS)Indications:[place] 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) [...] (Moderna) 05/18/2022 Pneumococcal Conjugate Vacci ne, 20-valent ([id number]) 04/12/2022 Seasonal Influenza, Quadriva lent Hd (Fluzone [...] Nursing Notes * Linda Sears, RN - 07/06/2023 4:22 PM EST AST 59, ALT 93. Per Dr Maldonado, decrease prednisone to 10mg daily. Patient to return in 1 week. Patient verbalized understanding, notes that he is slowly starting to feel better. documented in this encounter Plan of Treatment Upcoming Encounters Date Type Department Care Team (Late st Contact Info) Description 07/13/2023 12:00 PM EST Laboratory Laboratory [facility] [address] [place] [id number] Jordana, Lab Scenery 200 [facility] [place] [address] 07/13/2023 1:00 PM EST Nurse Only Hematology/Oncology [facility] 200 [facility] [place] [address] Jordana, Nurse Hem Onc [facility] 200 [facility] [place] [address] 07/19/2023 1:00 PM EST Office Visit Family Practice [address] [place] [address] 293 [facility], [place] [address] Sami Stephens, DO 293 [facility], [place] [address] 07/20/2023 10:00 AM EST Office Visit Cardiology, [facility] 132 [facility] [place] [address] [place] Sharma, DO 132 [facility] [place] [address] 07/20/2023 10:45 AM EST Office Visit Hematology/Oncology [facility] [address] [place] [address] Rasheed Maldonado MD [address] [place] [address] 08/10/2023 3:00 PM EST Office Visit Family Practice [address], [place] 293 [place] [address] Sami Stephens, 293 [place] [address] 08/30/2023 11:15 AM EST Office Visit Dermatology [facility] [address] [place] [address] Nik Vieira MD 200 [facility] [place] [address] 08/31/2023 3:15 PM EST Procedure Only Urology, [facility] 132 [address] [facility] [place] [address] Marbin Ivan MD [address] [place] [address] 09/22/2023 1:15 PM EST Office Visit Hematology/Oncology [facility] [address] [place], [place] [address] Rasheed Maldonado MD [address] [place], [place] [address] 03/12/2024 1:10 PM EDT Office Visit Dermatology [facility] [place] [address] [place] [address] Natasha Nova PA-C [address] [facility] [place] [address] 03/13/2024 1:30 PM EDT Office Visit Cardiology, [facility] 132 [facility] [place] [address] Angela Peter CRNP [address] [place] [phone] 05/17/2024 10:00 AM EDT Office Visit Sleep Disorders Ctr [facility] 132 [facility] [place] [phone] Kathrine Haile CRNP 132 [facility] [place] [address] Health Maintenance Due Date Last Done Comments [...] encounter Medical Devices Implanted Type Area Product Inspection Supervisor Device Identifier Shelf Expiration Date Model / Serial / Lot Port Implant W/8f Poly Cath - [id number] Implanted:Qty: 1 on 05/12/2023 at [facility] CR [facility]ARD : PERIPHERAL VASCULAR [id number] 07/14/2024 [id number] / / [id number] documented as of this encounter Advance Directives [...] Advance Directives occurred with: Patient Care Teams Machinist Instructor Relationship Specialty Start Date End Date Sami Stephens DO 293 [facility] [place] [address] PCP - General Internal Medicine 01/08/22 documented as of this encounter
--- OUTSIDE RECORDS SUMMARY | 2023-09-12 16:20 | External Medical Summary | Summary of Care ---
Author Name Unknown Organization [facility] Address [address] [facility] [place] [address] Phone [phone] Care Team Providers Care Health And Safety Inspector Name Role Phone Sami Stephens DO Primary Care Provider [phone] Encounter Details Date Type Department Care Team (Late st Contact Info) Description 07/13/2023 1:00 PM EST Nurse Only Hematology/Oncology [facility] [place] [address] [place] [address] Jordana Nurse Hem Onc [facility] [address] [place] [address] Arrived Allergies Active Allergy Reactions Criticality Noted [...] Sulfamethoxazole-Tr imethoprim 800-160 MG Oral Tablet (Bactrim DS)Indications:[place] 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) [...] (Moderna) 05/18/2022 Pneumococcal Conjugate Vacci ne, 20-valent ([id number]) 04/12/2022 Seasonal Influenza, Quadriva lent Hd (Fluzone [...] of this encounter Nursing Notes * Linda Sears RN - 07/13/2023 12:37 PM EST AST 49 ALT 63 Patient currently on 10mg prednisone daily. Per Dr Maldonado, decrease to 5mg daily. Patient requested rx be sent to a pharmacy near our office, agreeable to CLARISA Molina. Rx sent. Patient to return in 1 week for labs and to see Dr Maldonado. Message sent to [address] [place] [address] to see if lab work can be drawn there on 07/19 when patient is there to see Dr Stephens. Patient reports that overall he is doing well. Still experiencing fatigue, but no other complaints. documented in this encounter Plan of Treatment Upcoming Encounters Date Type Department Care Team (Late st Contact Info) Description 07/19/2023 1:00 PM EST Office Visit Family Practice [address] [place] [address] 293 [place] [address] Sami Stephens, DO 293 [place] [address] 07/20/2023 10:00 AM EST Office Visit Cardiology, [facility] 132 [place] [address] Francisco Sharma, DO 132 [facility] [address] 07/20/2023 10:45 AM EST Office Visit Hematology/Oncology [facility] 200 [facility] [place] [address] Rasheed Maldonado MD 200 [facility] [place], [place] [address] 08/10/2023 3:00 PM EST Office Visit Family Practice [address] [place] [address] 293 [place] [address] Sami Stephens, DO 293 [place] [address] 08/30/2023 11:15 AM EST Office Visit Dermatology [facility] [address] [place] [address] Nik Vieira MD [address] [place] [address] 08/31/2023 3:15 PM EST Procedure Only Urology, [facility] 132 [facility] [place] [address] Marbin Ivan MD 27 [facility] [address] [place] [address] 09/22/2023 1:15 PM EST Office Visit Hematology/Oncology [facility] [address] [place] [address] Rasheed Maldonado MD 200 [facility] [place] [address] 03/12/2024 1:10 PM EDT Office Visit Dermatology [facility] [address] [place] [address] Natasha Nova PA-C [address] [place] [address] 03/13/2024 1:30 PM EDT Office Visit Cardiology, [facility] 132 [facility] [place] [address] Angela Peter CRNP 400 [facility] [place] [phone] 05/17/2024 10:00 AM EDT Office Visit Sleep Disorders Ctr [facility] 132 [facility] [place] [phone] Kathrine Haile CRNP 132 [facility] [place] [address] Health Maintenance Due Date Last Done Comments [...] this encounter Medical Devices Implanted Type Area Oracle Ebs Developer Device Identifier Shelf Expiration Date Model / Serial / Lot Port Implant W/8f Poly Cath - [id number] Implanted:Qty: 1 on 05/12/2023 at [facility] CR BARD : PERIPHERAL VASCULAR [id number] 07/14/2024 [id number] / / [id number] documented as of this encounter Advance Directives [...] Advance Directives occurred with: Patient Care Teams Health And Safety Inspector Relationship Specialty Start Date End Date Sami Stephens DO 293 [place] [address] PCP - General Internal Medicine 01/08/22 documented as of this encounter
--- OUTSIDE RECORDS SUMMARY | 2023-09-12 16:21 | External Medical Summary | Summary of Care ---
Author Name Unknown Organization [facility] Address [address] [place] [address] Phone [phone] Care Team Providers Care Lombardi Developer Name Role Phone Sami Stephens DO Primary Care Provider [phone] Reason for Visit * Reason Comments Follow Up Encounter Details Date Type Department Care Team (Late st Contact Info) Description 07/05/2023 1:40 PM EST Office Visit Family Practice 65 [facility] 293 [place] [phone] Sami Stephens DO 293 [place] [address] Drug-induced pneumonitis*; Acute respiratory failure with hypoxia (HCC); Urinary retention; 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); Moderate to severe aortic stenosis; Gouty arthropathy; Dyslipidemia, goal LDL below 70; BPH with obstruction/lower urinary tract symptoms; HTN, goal below 150/90; Prediabetes; SCOTT (generalized anxiety disorder); Essential tremor; Drug-induced constipation Allergies Active Allergy Reactions Criticality Noted Date Comments Pembrolizumab 07/01/2023 Penicillins 03/22/2023 Patient states had a reaction many years ago - that it was the "horse serum kind." documented as of this encounter (statuses as of 07/05/2023) Medications Medication Sig Dispensed Refills Start Date [...] Sulfamethoxazole-Tr imethoprim 800-160 MG Oral Tablet (Bactrim DS)Indications:[place] 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) [...] as of this encounter (statuses as of 07/05/2023) Active Problems Problem Noted Date Diagnosed Date [...] as of this encounter (statuses as of 07/05/2023) Immunizations Name Administration Dates Next Due COVID-19 mRNA, LNP-s, No Pre serve, 2-Dose Series (Moderna) 09/23/2020,08/29/2020 COVID-19, mRNA, LNP-s, PF, B ooster, 100mcg/0.5mg (Moderna) 02/02/2022,06/08/2021 Covid-19, Mrna, Lnp-s, Pf, B ivalent, 50 Mcg, IM, 12 yrs and above (Moderna) 05/18/2022 Pneumococcal Conjugate Vacci ne, 20-valent ([id number]) 04/12/2022 Seasonal Influenza, Quadriva lent Hd (Fluzone [...] Sign Reading Time Taken Comments Blood Pressure 116/72 07/05/2023 2:01 PM EST Pulse 80 07/05/2023 2:01 PM EST Temperature 35.3 C (95.6 F) 07/05/2023 2:01 PM ES T Respiratory Rate 16 07/05/2023 2:01 PM EST Oxygen Saturation 92% 07/05/2023 2:01 PM EST Inhaled Oxygen Concentration - - Weight 142.3 kg (313 lb 12.8 oz) 07/05/2023 2:01 PM EST Height 182.9 cm (6') 07/05/2023 2:01 PM EST Body Mass Index 42.56 07/05/2023 2:01 PM EST documented in this encounter Progress Notes * Sami Stephens, - 07/05/2023 4:01 PM EST SUBJECTIVE: aRlf Larson is a 78 year old male. [...] caused by Keytruda therapy. Shortness of breath is improving. Transaminases are improving. Strength has improved. He is still not able to lay flat due to shortness ofbreath. He is able to void but has urinary frequency. Oncology is weaning Prednisone. Patient Active Problem List Diagnosis Code Morbid obesity due to excess calories ([facility]) E66.01 Gouty arthropathy M10.9 Dyslipidemia, goal LDL below 70 E78.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, N13.8 HTN, goal below 150/90 I10 Vitamin D deficiency E55.9 SANDRINE on CPAP G47.33 Body mass index (BMI) of 45.0 to 49.9 in adult ([facility]) Z68.42 Prediabetes R73.03 SCOTT (generalized anxiety disorder) F41.1 Moderate to severe aortic stenosis I35.0 Bradycardia, sinus R00.1 1st degree AV block I44.0 Sinus pause I45.5 Essential tremor G25.0 Melanoma of face ([facility]) C43.30 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 ([facility]) C79.89 Encounter for antineoplastic immunotherapy Z51.12 Metastasis to cervical lymph node ([facility]) C77.0 History of melanoma Z85.820 Drug-induced constipation K59.03 Current Outpatient Medications Medication Sig Dispense Refill Aspirin 81 MG Oral Tablet Delayed Release Take 1 Tablet by mouth daily. PM SM Vitamin D3 100 MCG (4000 UT) Oral Capsule (Cholecalciferol) Take by mouth 5,000 Units daily . CPAP every night at bedtime . Dulaglutide 1.5 MG/0.5ML Subcutaneous Solution Pen-injector (Runfaces) INJECT 1.5MG UNDER THE SKINONCE WEEKLY (Patient taking differently: Tuesday) 6 mL 3 Solifenacin Succinate 5 MG Oral Tablet (VESIcare) TAKE ONE TABLET BY MOUTH EVERY DAY NEEDED (URINARY FREQUENCY 90 Tablet 2 Finasteride 5 MG Oral Tablet (Proscar) Take [...] ONE TABLET BEFORE BEDTIME 180 Tablet 3 predniSONE 10 MG Oral Tablet (Deltasone) Take 5 Tablets by mouth in the morning. Taper per Dr Maldonadobased on lab results. (Patient taking differently: Take 2 Tablets by mouth in the morning. Taper per Dr Maldonado based on lab results.) 100 Tablet 1 Sulfamethoxazole-Trimethoprim 800-160 MG Oral [...] mouth in the morning. 30 Capsule 5 Atorvastatin Calcium 20 MG Oral Tablet (Lipitor) TAKE ONE TABLET BY MOUTH EVERY MORNING (Patient not taking: Reported on 06/10/2023) 100 Tablet 3 Lidocaine-Prilocaine 2.5-2.5 % External Cream (Emla) APPLY TO SKIN OVER MEDIPORT & COVER 1HR PRIOR TO ACCESSING. 30 g 1 No current facility-administered medications [...] performed by Tito Ortega MD at [facility] CATARACT SURGERY,COMPLEX 2016 BOTH EYES COLONOSCOPY has had several IDENTIFY SENTINEL NODE, RADIOACTIVE TRACER Left 04/11/2023 INJECTION PROCEDURE FOR IDENTIFICATION SENTINEL NODE performed by Tito Ortega MD at [facility] INFORMATION tonsils as a child IR VENOUS ACCESS MEDIPORT 05/12/2023 OTHER 2019 VIRECTOMY OD OTHER ACT [address] Townsend (08-21-21) PROCEDURE - GENERAL Left 11/23/2021 Left Inguinal hernia surgery by Dr Mak Fisher PROSTATE, LASER VAPORIZATION N/A 07/21/2022 LASER VAPORIZATION PROSTATE performed by Marbin Ivan MD at OR [facility] REMOVAL OF PROSTATE (TURP) N/A 07/21/2022 TRANSURETHRAL RESECTION PROSTATE ELECTROSURGICAL performed by Marbin Ivan MD at OR [facility] Review of patient's allergies indicates: Allergen Reactions Keytruda [Pembrolizumab] Penicillins Patient states had a reaction many years ago - that it was the "horse serum kind." Review of Systems Constitutional: Positive for appetite change and fatigue. Negative for chills and fever. HENT: Positive for congestion. Negative for sore throat and trouble swallowing. Respiratory: Positive for shortness of breath. Negative for cough and wheezing. Cardiovascular: Positive for leg swelling. Negative for chest pain. Gastrointestinal: Negative for abdominal pain, blood in stool, constipation, diarrhea, nausea and vomiting. Genitourinary: Positive for frequency. Negative for dysuria and hematuria. Musculoskeletal: Negative for back pain and gait problem. Neurological: Negative for dizziness, syncope and headaches. Psychiatric/Behavioral: Negative for confusion and decreased concentration. The patient is not nervous/anxious. OBJECTIVE: BP 116/72 | Pulse 80 | Temp 35.3 C (95.6 F) (Tympanic) | Resp 16 | Ht 1.829 m (6') | Wt (!) 142.3 kg (313 lb 12.8 oz) | SpO2 92% | BMI 42.56 kg/m | BSA 2.69 m Physical Exam Vitals and nursing note reviewed. Constitutional: General: He is not in acute distress. Appearance: He is not toxic-appearing. HENT: Head: Normocephalic [...] lower leg: Edema present. Comments: Leg edema unchanged Neurological: Mental Status: He is alert and oriented to person, place, and time. Mental status is at baseline. Motor: Weakness present. Gait: Gait normal. Psychiatric: Mood and Affect: Mood normal. Behavior: Behavior normal. Thought Content: Thought content normal. 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) Continue to follow with Oncology Follow up imaging per Oncology Moderate to severe aortic stenosis Continue to follow with Cardiology Gouty arthropathy Dyslipidemia, goal LDL below 70 BPH with obstruction/lower urinary tract symptoms Continue Finasteride HTN, goal below 150/90 Continue Losartan, Amlodipine, and HCTZ Prediabetes Continue Dulaglutide SCOTT (generalized anxiety disorder) Continue Sertraline Essential tremor Drug-induced constipation Continue Miralax daily Decrease Senna to 8.6 mg two times a day Follow Up: Return in about 2 weeks (around 07/19/2023), or if symptoms worsen or fail to improve. Sami Stephens DO 4:01 PM 07/05/2023 documented in this encounter Nursing Notes * Jenae Garrett LPN - 07/05/2023 2:01 PM EST Here for follow up, states is feeling better. documented in this encounter Plan of Treatment Upcoming Encounters Date Type Department Care Team (Late st Contact Info) Description 07/06/2023 12:00 PM EST Laboratory Laboratory [facility] 200 [facility] [place] [phone] Jordana Lab [facility] 200 [facility] [place] [address] 07/06/2023 1:00 PM EST Nurse Only Hematology/Oncology [facility] [place] [address] [place] [address] Jordana, Nurse Hem Onc [facility] 200 [facility] [place] [address] 07/19/2023 1:00 PM EST Office Visit Family Practice 65 [facility] [address] Sami Stephens, DO 293 [place] [address] 07/20/2023 10:00 AM EST Office Visit Cardiology, [facility] 132 [place] [address] Francisco Sharma, DO 132 [place] [address] 07/20/2023 10:45 AM EST Office Visit Hematology/Oncology [facility] [address] [place] [address] Rasheed Maldonado MD 200 [facility] [place], [place] [address] 08/10/2023 3:00 PM EST Office Visit Family Practice [address] [place] [address] 293 [place] [address] Sami Stephens, DO 293 [place] [address] 08/30/2023 11:15 AM EST Office Visit Dermatology [facility] [address] [place] [address] Nik Vieira MD 200 [facility] [place], [place] [address] 08/31/2023 3:15 PM EST Procedure Only Urology, [facility] 132 [place] [address] Marbin Ivan MD [address] [place] [address] [place] [address] 09/22/2023 1:15 PM EST Office Visit Hematology/Oncology [facility] [address] [place] [address] Rasheed Maldonado MD 200 [facility] [address] 03/12/2024 1:10 PM EDT Office Visit Dermatology [facility] [place] [address] [place] [address] Natasha Nova PA-C [address] [place] [address] 03/13/2024 1:30 PM EDT Office Visit Cardiology, [facility] 132 [facility] [address] Angela Peter CRNP 400 [facility] [place] [phone] 05/17/2024 10:00 AM EDT Office Visit [facility]tr [facility] [address] [facility] [place] [phone] Kathrine Haile CRNP [address] [facility] [address] Health Maintenance Due Date Last Done Comments COVID-19 Vaccine ( season) 2023 05/18/2022, 02/02/2022, 06/08/2021, Additional history exists HbA1c 05/27/2024 05/27/2023, 01/14, 10/18/2022, Additional history exists GFR 06/30/2024 06/30/2023, 11/0 03/2023, 06/09/2023, Additional history exists Depression Screening 07/01/2024 07/05/2023 Albumin/Creatinine Ratio 01/08/2025 01/08/2022, 03/16 DTaP,Tdap,and [...] this encounter Medical Devices Implanted Type Area Marketing Systems Analyst Device Identifier Shelf Expiration Date Model / Serial / Lot Port Implant W/8f Poly Cath - [id number] Implanted:Qty: 1 on 05/12/2023 at 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
--- OUTSIDE RECORDS SUMMARY | 2023-09-12 16:21 | External Medical Summary ---
Author Name Unknown Address Unknown Organization K[facility] [address] Laboratory Report Ordering Provider Test Date Status EMANI CAMPBELL 07/06/2023 11:39:45 Final Observation Date Value Abnormality Reference (Units ) Status SYNC LEUKOCYTES IN BLOOD BY AUTOMATED COUNT 07/06/2023 11:39:45 12.79 Above high normal 4.00-10.80 (K/uL) Final Segs 07/06/2023 11:39:45 74.5 40.0-75.0 (%) Final Lymphs % 07/06/2023 11:39:45 15.9 Below low normal 18.0-42.0 (%) Final Monos 07/06/2023 11:39:45 8.1 1.0-11.0 (%) Final Eosinophils 07/06/2023 11:39:45 1.2 0.0-6.0 (%) Final Basos 07/06/2023 11:39:45 0.3 0.0-2.0 (%) Final Absolute Segs 07/06/2023 11:39:45 9.54 Above high normal 1.80-7.70 (K/uL) Final Lymphs, absolute 07/06/2023 11:39:45 2.03 1.00-4.80 (K/ul) Final Monos, Abs 07/06/2023 11:39:45 1.03 0.00-1.10 (K/uL) Final Eos, Abs 07/06/2023 11:39:45 0.15 0.00-0.70 (K/uL) Final Basos, Abs 07/06/2023 11:39:45 0.04 0.00-0.20 (K/uL) Final Performing Location [facility] [address] [place] [address]
--- OUTSIDE RECORDS SUMMARY | 2023-09-12 16:21 | External Medical Summary | Summary of Care ---
Author Name Unknown Organization [facility] Address [address] [place] [address] Phone [phone] Care Team Providers Care Finisher [employer] Name Role Phone Sami Stephens DO Primary Care Provider [phone] Reason for Visit * Reason Comments Outpatient Testing Encounter Details Date Type Department Care Team (Late st Contact Info) Description 06/30/2023 11:20 AM EST Laboratory Laboratory, [facility] [place] [address] 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 0 Active SM Vitamin D3 100 MCG (4000 UT) Oral Capsule (Cholecalciferol) Take by mouth 5,000 Units daily . 0 Active CPAP every night at bedtime . 0 Active Dulaglutide 1.5 MG/0.5ML Subcutaneous Solution Pen-injector (Trulicity)Indicati ons:Prediabetes INJECT 1.5MG UNDER THE SKIN ONCE WEEKLY 6 mL 3 02/07/2023 02/07/2024 Active Solifenacin Succinate 5 MG Oral Tablet [...] THE MORNING 90 Tablet 3 04/26/2023 Active Losartan Potassium 100 MG Oral Tablet (Cozaar)Indications [...] 06/09/2023 Active Additional Information Patient taking differently: 30 mgOral Daily(AM), Taper per Dr Maldonado based on lab results, Reported on 06/22/2023 Sulfamethoxazole-Tr imethoprim 800-160 MG Oral Tablet (Bactrim DS)Indications:[place] 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) [...] as of this encounter (statuses as of 06/30/2023) Active Problems Problem Noted Date Diagnosed Date History of melanoma 05/27/2023 Metastasis to cervical [...] as of this encounter (statuses as of 06/30/2023) Immunizations Name Administration Dates Next Due COVID-19 mRNA, LNP-s, No Pre serve, 2-Dose Series (Moderna) 09/23/2020,08/29/2020 COVID-19, mRNA, LNP-s, PF, B ooster, 100mcg/0.5mg (Moderna) 02/02/2022,06/08/2021 Covid-19, Mrna, Lnp-s, Pf, B ivalent, 50 Mcg, IM, 12 yrs and above (Moderna) 05/18/2022 Pneumococcal Conjugate Vacci ne, 20-valent ([id number]) 04/12/2022 Seasonal Influenza, Quadriva lent Hd (Fluzone [...] Date Recorded PHQ Adult Total Score 2 06/10/2023 Hunger Vital Sign Answer Date Recorded Within the past 12 months, y ou worried that your food would run out before you got the money to buy more. Never true 06/21/20 23 Within the past 12 months, t he food you bought just didn't last and you didn't have money to get more. Never true 06/21/2023 Sex and Gender Information Value Date Recorded [...] Care Team (Late st Contact Info) Description 06/30/2023 1:00 PM EST Telemedicine Hematology/Oncology [facility] [address] [place] [address] [place], Nurse Hem Onc [facility] [address] [place] [address] 07/01/2023 1:40 PM EST Office Visit Family Practice 65 [facility] 293 [place] [address] Sami tSephens, DO [address] [place] [address] 07/20/2023 10:45 AM EST Office Visit Hematology/Oncology [facility] [address] [place] [address] Rasheed Maldonado MD [address] [place] [address] 08/10/2023 3:00 PM EST Office Visit Family Practice 65 [facility] 293 [place] [phone] Sami Stephens, DO 293 [place] [address] 08/30/2023 11:15 AM EST Office Visit Dermatology [facility] [address] [place] [address] Nik Vieira MD [address] [place] [address] 08/31/2023 3:15 PM EST Procedure Only Urology, [facility] 132 [facility] [place] [address] Marbin Ivan MD 27 [facility] [address] [place] [address] 09/22/2023 1:15 PM EST Office Visit Hematology/Oncology [facility] [address] [place], [place] [address] Rasheed Maldonado MD [address] [place], [place] [address] 03/12/2024 1:10 PM EDT Office Visit Dermatology [facility] [place] [address] [place] [address] Natasha Nova PA-C [address] [facility] [place] [address] 03/13/2024 1:30 PM EDT Office Visit Cardiology, [facility] [address] Angela Peter CRNP 400 [facility] [place] [phone] 05/17/2024 10:00 AM EDT Office Visit [facility]tr [facility] [phone] Kathrine Haile CRNP 132 [facility] [address] Pending Results Name Type Priority Associated Diagnoses Date /Time COMPREHENSIVE METABOLIC PANEL Lab STAT Melanoma of face (HCC) 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) 06/30/2023 11:15 AM EST Health Maintenance Due Date Last Done Comments COVID-19 Vaccine ( season) 2023 05/18/2022, 02/02/2022, 06/08/2021, Additional history exists HbA1c 05/27/2024 05/27/2023, 01/14, 10/18/2022, Additional history exists Depression Screening 06/10/2024 06/10/2023 GFR 06/22/2024 06/22/2023, 05/16, 06/02/2023, Additional history exists Albumin/Creatinine Ratio 01/08/2025 01/08/2022, [...] this encounter Medical Devices Implanted Type Area Winding Inspector And Tester Device Identifier Shelf Expiration Date Model / Serial / Lot Port Implant W/8f Poly Cath - [id number] Implanted:Qty: 1 on 05/12/2023 at [facility] BARD : PERIPHERAL VASCULAR [id number] 07/14/2024 [id number] / / [id number] documented as of this encounter Procedures Procedure Name Priority Date/Time Associated Diagnosis Comments DIFFERENTIAL, AUTOMATED STAT 06/30/2023 11:15 AM EST Melanoma of face (HCC) 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) CBC STAT 06/30/2023 11:15 AM EST Melanoma of face (HCC) 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) CBC STAT 06/30/2023 11:15 AM EST Melanoma of face (HCC) 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) documented in this encounter Results * (ABNORMAL) DIFFERENTIAL, AUTOMATED (06/30/2023 11:15 AM EST) WBC 12.44(H) 4.00 - 10.80 K/uL 06/30/2023 11:22 AM EST [facility] Neutrophils % 70.7 40.0 - 75.0 % 06/30/2023 11:22 AM EST [facility] Lymphocytes % 19.6 18.0 - 42.0 % 06/30/2023 11:22 AM EST [facility] Monocytes % 8.4 1.0 - 11.0 % 06/30/2023 11:22 AM EST [facility] Eosinophils % 0.9 0.0 - 6.0 % 06/30/2023 11:22 AM EST [facility] Basophils % 0.4 0.0 - 2.0 % 06/30/2023 11:22 AM EST [facility] Absolute Neutrophils 8.80(H) 1.80 - 7.70 K/uL 06/30/2023 11:22 AM EST [facility] Absolute Lymphocytes 2.44 1.00 - 4.80 K/ul 06/30/2023 11:22 AM EST [facility] Absolute Monocytes 1.04 0.00 - 1.10 K/uL 06/30/2023 11:22 AM EST [facility] Absolute Eosinophils 0.11 0.00 - 0.70 K/uL 06/30/2023 11:22 AM EST [facility] Absolute Basophils 0.05 0.00 - 0.20 K/uL 06/30/2023 11:22 AM EST [facility] Blood Venous blood specimen / Unknown Venipuncture / Unknown 06/30/2023 11:15 AM EST 06/30/2023 11:15 AM EST Rasheed Maldonado MD LAB BLOOD ORDERABLES Performing Organization Address City/State/[facility] Co de Phone Number [facility] [address] [place] [address] [place] [address] * (ABNORMAL) CBC (06/30/2023 11:15 AM EST) WBC 12.44(H) 4.00 - 10.80 K/uL 06/30/2023 11:22 AM EST [facility] RBC 5.12 4.50 - 5.25 M/uL 06/30/2023 11:22 AM EST [facility] HGB 15.9 14.0 - 16.8 g/dL 06/30/2023 11:22 AM EST [facility] HCT 47.8 40.0 - 48.4 % 06/30/2023 11:22 AM EST [facility] MCV 93.4 82.0 - 99.5 fL 06/30/2023 11:22 AM EST [facility] MCH 31.1 27.0 - 34.0 pg 06/30/2023 11:22 AM EST [facility] MCHC 33.3 32.0 - 36.0 g/dL 06/30/2023 11:22 AM EST [facility]10 RDW 15.0 11.5 - 15.5 % 06/30/2023 11:22 AM EST [facility]10 PLT 162 140 - 400 K/uL 06/30/2023 11:22 AM EST [facility] MPV 9.2 6.6 - 11.1 fL 06/30/2023 11:22 AM EST [facility]10 Blood Venous blood specimen / Unknown Venipuncture / Unknown 06/30/2023 11:15 AM EST 06/30/2023 11:15 AM EST Rasheed Maldonado MD LAB BLOOD ORDERABLES [id number] [place] [address] documented in this encounter Visit Diagnoses Diagnosis [...] Advance Directives occurred with: Patient Care Teams [employer]isher [employer] Relationship Specialty Start Date End Date Sami Stephens DO [address] [place] [address] PCP - General Internal Medicine 01/08/22 documented as of this encounter
--- OUTSIDE RECORDS SUMMARY | 2023-09-12 16:21 | External Medical Summary ---
Author Name Unknown Address Unknown Organization K09:[facility] [place] [address] Laboratory Report Ordering Provider Test Date Status EMANI CAMPBELL 07/06/2023 11:39:45 Final Observation Date Value Abnormality Reference (Units ) Status WBC, Total 07/06/2023 11:39:45 12.79 Above high normal 4 .00-10.80 (K/uL) Final RBC 07/06/2023 11:39:45 5.09 4.50-5.25 (M/uL) Final Hemoglobin 07/06/2023 11:39:45 15.7 14.0-16.8 (g/dL) Final HCT 07/06/2023 11:39:45 48.0 40.0-48.4 (%) Final MCV 07/06/2023 11:39:45 94.3 82.0-99.5 (fL) Final MCH 07/06/2023 11:39:45 30.8 27.0-34.0 (pg) Final MCHC 07/06/2023 11:39:45 32.7 32.0-36.0 (g/dL) Final RDW 07/06/2023 11:39:45 15.1 11.5-15.5 (%) Final Platelets 07/06/2023 11:39:45 175 140-400 (K /uL) Final MPV 07/06/2023 11:39:45 9.1 6.6-11.1 ( fL) Final Performing Location [facility] [place] [address]
--- OUTSIDE RECORDS SUMMARY | 2023-09-12 16:21 | External Medical Summary | Summary of Care ---
Author Name Unknown Organization [facility] Address [address] [place] [address] Phone [phone] Care Team Providers Care Apprentice Technician Name Role Phone Sami Stephens DO Primary Care Provider [phone] Reason for Visit * Reason Comments Follow Up Encounter Details Date Type Department Care Team (Late st Contact Info) Description 07/05/2023 1:40 PM EST Office Visit Family Practice 65 [facility] [address] [place] [phone] Sami Stephens DO [address] [place] [address] Drug-induced pneumonitis*; Acute respiratory failure with hypoxia [...] Sulfamethoxazole-Tr imethoprim 800-160 MG Oral Tablet (Bactrim DS)Indications:[place] 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) [...] (Moderna) 05/18/2022 Pneumococcal Conjugate Vacci ne, 20-valent ([id number]) 04/12/2022 Seasonal Influenza, Quadriva lent Hd (Fluzone [...] Stephens, - 07/05/2023 4:01 PM EST SUBJECTIVE: Ralf Larson is a [...] Morbid obesity due to excess calories ([facility]) E66.01 Gouty arthropathy M10.9 Dyslipidemia, goal LDL below 70 E78.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, N13.8 HTN, goal below 150/90 I10 Vitamin D deficiency E55.9 SANDRINE on CPAP G47.33 Body mass index (BMI) of 45.0 to 49.9 in adult ([facility]) Z68.42 Prediabetes R73.03 SCOTT (generalized anxiety disorder) F41.1 Moderate to severe aortic stenosis I35.0 Bradycardia, sinus R00.1 1st degree AV block I44.0 Sinus pause I45.5 Essential tremor G25.0 Melanoma of face ([facility]) C43.30 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 PM SM Vitamin D3 100 MCG (4000 UT) Oral Capsule (Cholecalciferol) Take by mouth 5,000 Units daily . CPAP every night at bedtime . Dulaglutide 1.5 MG/0.5ML Subcutaneous Solution Pen-injector (MyActivityPal) INJECT 1.5MG UNDER THE SKINONCE WEEKLY (Patient [...] by Tito Ortega MD [place] [facility] [place] 2016 BOTH EYES COLONOSCOPY has had several IDENTIFY SENTINEL NODE, RADIOACTIVE TRACER Left 04/11/2023 INJECTION PROCEDURE FOR IDENTIFICATION SENTINEL NODE performed by Tito Ortega MD [place] [facility] INFORMATION tonsils as a child IR VENOUS ACCESS MEDIPORT 05/12/2023 OTHER 2019 VIRECTOMY OD OTHER ACT [address] Townsend (08-21-21) PROCEDURE - GENERAL Left 11/23/2021 Left Inguinal hernia surgery by Dr Mak Fisher PROSTATE, LASER VAPORIZATION N/A 07/21/2022 LASER VAPORIZATION PROSTATE performed by Marbin Ivan MD at OR [facility] REMOVAL OF PROSTATE (TURP) N/A 07/21/2022 TRANSURETHRAL RESECTION PROSTATE ELECTROSURGICAL performed by Marbin Ivan MD at OR [facility] Review of patient's allergies indicates: Allergen Reactions [...] Description 07/06/2023 12:00 PM EST Laboratory Laboratory [facility] 200 [facility] [place] [phone] Jordana Lab [facility] 200 [facility] [place] [address] 07/06/2023 1:00 PM EST Nurse Only Hematology/Oncology [facility] [place] [address] [place] [address] Jordana, Nurse Hem Onc [facility] 200 [facility] [place] [address] 07/19/2023 1:00 PM EST Office Visit Family Practice 65 [facility] 293 [facility] [address] Sami Stephens, DO 293 [place] [place] [address] 07/20/2023 10:00 AM EST Office Visit Cardiology, [facility] 132 [place] [address] Francisco Sharma, DO 132 [facility] [address] 07/20/2023 10:45 AM EST Office Visit Hematology/Oncology [facility] [address] [place] [address] Rasheed Maldonado MD 200 [facility] [place], [place] [address] 08/10/2023 3:00 PM EST Office Visit Family Practice [address] [place] [address] 293 [facility] [place] [address] Sami Stephens, DO 293 [facility] [place] [address] 08/30/2023 11:15 AM EST Office Visit Dermatology [facility] [address] [place] [address] Nik Vieira MD 200 [facility] [place], [place] [address] 08/31/2023 3:15 PM EST Procedure Only Urology, [facility] 132 [place] [address] Marbin Ivan MD [address] [place] [address] [place] [address] 09/22/2023 1:15 PM EST Office Visit Hematology/Oncology [facility] [address] [place] [address] Rasheed Maldonado MD 200 [place] [address] 03/12/2024 1:10 PM EDT Office Visit Dermatology [facility] [place] [address] [place] [address] Natasha Nova PA-C [address] [place] [address] 03/13/2024 1:30 PM EDT Office Visit Cardiology, [facility] [address] Angela Peter CRNP 400 [facility] [place] [phone] 05/17/2024 10:00 AM EDT Office Visit [facility] [place] [phone] Kathrine Haile CRNP 132 [facility] [address] Health Maintenance Due Date Last Done Comments [...] encounter Medical Devices Implanted Type Area Medical Record Technician Device Identifier Shelf Expiration Date Model / Serial / Lot Port Implant W/8f Poly Cath - [id number] Implanted:Qty: 1 on 05/12/2023 at [facility] BARD : PERIPHERAL VASCULAR [id number] 07/14/2024 [id number] / / [id number] documented as of this encounter Visit Diagnoses [...] Directives occurred with: Patient Care Teams Apprentice Technician Relationship Specialty Start Date End Date Sami Stephens DO 293 [facility] [place] [address] PCP - General Internal Medicine 01/08/22 documented as of this encounter
--- OUTSIDE RECORDS SUMMARY | 2023-09-12 16:21 | External Medical Summary | Summary of Care ---
Author Name Unknown Organization [facility] Address [address] [place] [address] Phone [phone] Care Team Providers Care Banquet Food Server Name Role Phone Ven[place] Sami Blue DO Primary Care Provider [phone] Reason for Visit * Reason Comments Follow Up 3 month FBSE-MM, spo t on left forearm, has a rash on left inner thigh, itchy. Encounter Details Date Type Department Care Team (Late st Contact Info) Description 05/18/2023 1:50 PM EDT Office Visit Dermatology [facility] [address] [place] [address] Natasha Nova PA-C [address] [place] [address] Neoplasm of uncertain behavior of skin*; Seborrheic keratosis; Multiple pigmented nevi; History of melanoma Allergies Active Allergy Reactions Criticality Noted Date Comments Penicillins 03/22/2023 Patient states had a reaction many years ago - that it was the "horse serum kind." documented as of this encounter (statuses as of 06/28/2023) Medications Medication Sig Dispensed Refills Start Date [...] TO ACCESSING. 30 g 1 05/04/2023 Active documented as of this encounter (statuses as of 06/28/2023) Active Problems Problem Noted Date Diagnosed Date [...] as of this encounter (statuses as of 06/28/2023) Immunizations Name Administration Dates Next Due COVID-19 mRNA, LNP-s, No Pre serve, 2-Dose Series (Moderna) 09/23/2020,08/29/2020 COVID-19, mRNA, LNP-s, PF, B ooster, 100mcg/0.5mg (Moderna) 02/02/2022,06/08/2021 Covid-19, Mrna, Lnp-s, Pf, B ivalent, 50 Mcg, IM, 12 yrs and above (Moderna) 05/18/2022 Pneumococcal Conjugate Vacci ne, 20-valent ([id number]) 04/12/2022 Seasonal Influenza, Quadriva lent Hd (Fluzone [...] the money to buy more. Never true 06/10/20 23 Within the past 12 months, t he food you bought just didn't last and you didn't have money to get more. Never true 06/10/2023 Sex and Gender Information Value Date Recorded Sex Assigned at Male 04/12/2022 3:29 PM EDT Gender Identity Male 04/12/2022 3:29 PM EDT Sexual Orientation Straight 04/12/2022 3: 29 PM EDT Job Start Date Occupation Industry Not on file Not on file Not on file documented as of this encounter Progress Notes * Chuck Tyson MD - 06/28/2023 10:13 PM EST I have reviewed the charting notes and orders and associated images and agree with the assessment and plan of Natasha Jaime PA-C . Chuck Tyson MD., Dermatology [facility] [address] [place] [phone] * Natasha Nova PA-C - 05/18/2023 1:51 PM EDT Nursing Notes: Yakelin Andres LPN 05/18/23 [id number] Signed Patient identified by name and date. Chief Complaint Patient presents with Follow Up 3 month FBSE-MM, spot on left forearm, has a rash on left inner thigh, itchy. SUBJECTIVE: HPI: Ralf Larson is a 78 year old male who is an established patient seen for follow-up full skin exam. Patient last visit on 03/07/23. C/o spot on L forearm- unsure if changing but paying more attention to lesions since his diagnosis of melanoma Hx of melanoma L frontal scalp breslow depth 5.9mm s/p Mohs Mar 2023, 08/16 SLN positive- follows with oncology regularly. Currently on keytruda therapy started 05/06/23. Tolerating well so far. REVIEW OF SYSTEMS: See HPI- all other findings negative Constitutional: (-) fever, chills, sweats, weight loss Cardiovascular: (-) lower extremity edema Skin: (-) no rash or new or changing moles or skin lesions MEDICA TIONS: Current Outpatient Medications Medication Sig Dispense Refill Aspirin 81 MG Oral Tablet Delayed Release Take 1 Tablet by mouth in the morning. SM Vitamin D3 100 MCG (4000 UT) Oral Capsule (Cholecalciferol) Take by mouth 5,000 Units daily . CPAP every night at bedtime . Dulaglutide 1.5 MG/0.5ML Subcutaneous Solution Pen-injector ([employer]) INJECT 1.5MG UNDER THE SKINONCE WEEKLY 6 mL 3 Solifenacin Succinate 5 MG Oral Tablet (VESIcare) TAKE ONE TABLET BY MOUTH EVERY DAY NEEDED (URINARY FREQUENCY (Patient not taking: Reported on 05/11/2023) 90 Tablet 2 Atorvastatin Calcium 20 MG Oral Tablet (Lipitor) TAKE ONE TABLET BY MOUTH EVERY MORNING (Patient taking differently: Takes at night) 100 Tablet 3 Finasteride 5 MG Oral [...] MOUTH IN THE MORNING 90 Tablet 3 Losartan Potassium 100 MG [...] No current facility-administered medications for this visit. ALLERG Y: Penicillins OBJECTIVE: GEN: Healthy, alert, no distress, appears oriented, pleasant, and cooperative. LYMPH: no palpable lymphadenopathy ABD: nontender, no organomegaly PSYCH: Appropriate mood and affect, alert SKIN: Detailed exam of scalp, hair, face including lids and lips, ears, neck, chest, back, abdomen,buttocks, bilateral upper extremities and bilateral lower extremities including the nails and digits was completed and are within normal limits with the following exceptions: 1. Brown variegated macule L dorsal forearm 2. Scattered benign appearing lesions over examined skin including scattered benign and relatively monomorphic appearing melanocytic nevi, waxy flesh- colored, greyish brown benign and non-inflamed appearing stuck-on papules and plaques, benign and uniform appearing brown macules and patches in sun exposed areas, and bright red benign appearing dome-shaped papules and macules. 3. [place] crusted scar L frontal scalp ASSESSMENT/PLAN: 1. L dorsal forearm, r/o seborrheic keratosis vs Malignant Melanoma Tangential biopsy of the lesion noted above to establish and confirm diagnosis. The procedure, risks, benefits, alternatives and expected outcomes were discussed with the patient and verbal consent was obtained. Patient identified, procedure verified, site identified and verified. Confirmed immediately prior to procedure. Area prepped with alcohol and anesthetized with Ropivacaine 2mg/mL (0.2%). Biopsy of lesion performed. 20% AlCl and bandaging applied. Specimen sent to pathology. Patient instructed in routine post-op care. 2. Seborrheic Keratosis -Reassured of the benign nature of lesion -Discussed with patient that they may get more of these lesions in the future -If there are any lesions that become irritated, bleed, or painful to return to clinic for evaluation -No current treatment necessary at this time 3. Multiple benign-appearing nevi - No features concerning for malignancy on exam today. - Continue to monitor with monthly self-skin exams. - Patient counseled on ABCDEs of melanoma. - Discussed and emphasized importance of sun protection including broadband, water-resistant, SPF 30 or greater sunscreen with reapplication q2h or after swimming/excessive perspiration and sun protective attire (wide-brimmed hats, long pants/shirt, sunglasses). - Patient to contact physician for any new or changing lesions or other concerns. 4. H/o melanoma - No evidence of disease at primary site, continue to monitor - continue to follow with oncology as directed 5. Routine Skin Examination For Skin Cancer -Educated patient on ABCDE's. -Advised patient that if they notice any of these changes to please call for a follow-up appointment as soon as possible. -Counseled patient on criteria for good sunscreen including SPF 30 or higher, broad spectrum (UVA and UVB) and water resistant (up to 40 to 80 minutes). Advised to reapply sunscreen every 2 hours andafter swimming or profuse sweating. Advised to wear protective clothing when out in the sun including long sleeved shirt, pants, wide-brimmed hat and sunglasses. Informed to seek shade during 10 AM to 4 PM when the sun's rays are the strongest. -Advised to perform routine (at least once a year) skin self-examinations. Advised to contact theirdermatologist immediately if they notice any new or changing skin lesions. Patient alone today. Follow-up: 3 months Photos taken, patient consented to photos taken. Applicable photos (if any) and chart reviewed by Dr. Chuck Tyson The patient was encouraged to contact me with any further questions or concerns. Natasha Nova PA-C 05/18/2023 1:51 PM documented in this encounter Nursing Notes * Yakelin Andres LPN - 05/18/2023 1:35 PM EDT Patient identified by name and date. Chief Complaint Patient presents with Follow Up 3 month FBSE-MM, spot on left forearm, has a rash on left inner thigh, itchy. documented in this encounter Miscellaneous Notes * Result Encounter Note - Natasha Nova PA-C - 05/25/2023 8:23 AM EDT A. Skin, L dorsal forearm, shave: Seborrheic keratosis myG sent with results. F/u as scheduled documented in this encounter Plan of Treatment Upcoming Encounters Date Type Department Care Team (Late st Contact Info) Description 06/30/2023 11:20 AM EST Laboratory Laboratory, [facility] [address] [facility] [place] [phone] [facility] [address] [facility] [place] [address] 06/30/2023 11:30 AM EST Nurse Only Urology, [facility] [place] [address] [facility] [place] [address] Padilla, Nurse Urology Raz [address] [place] [address] 06/30/2023 1:00 PM EST Nurse Only Hematology/Oncology [facility] [address] [place], [place] [address] Jordana, Nurse Hem Onc [facility] 200 [facility] [place], [place] [address] 07/01/2023 1:40 PM EST Office Visit Family Practice [address] [place] [address] 293 [facility] [place] [phone] Sami Stephens, 293 [facility] [place], [place] [address] 07/20/2023 10:45 AM EST Office Visit Hematology/Oncology [facility] [address] [place], [place] [address] Rasheed Maldonado MD 200 [facility] [place], [place] [address] 08/10/2023 3:00 PM EST Office Visit Family Practice [facility] [address] [facility], [place] [address] Sami Stephens, 293 [facility] [place], [place] [address] 08/30/2023 11:15 AM EST Office Visit Dermatology [facility] [address] [place], [place] [address] Nik Vieira MD [address] [place], [place] [address] 08/31/2023 3:15 PM EST Procedure Only Urology, [facility] 132 [facility] [place] [address] Marbin Ivan MD [address] [address] [place] [address] 09/22/2023 1:15 PM EST Office Visit Hematology/Oncology [facility] [place] 200 [facility] [place] [address] Rasheed Maldonado MD 200 [facility] [place] [address] 03/12/2024 1:10 PM EDT Office Visit Dermatology [facility] [address] [place] [address] Natasha Nova PA-C [address] [place] [address] 03/13/2024 1:30 PM EDT Office Visit Cardiology, [facility] 132 [facility] [place] [address] Angela Peter CRNP [address] [place] [address] [place] [id number] 05/17/2024 10:00 AM EDT Office Visit Sleep Disorders Ctr [facility] 132 [facility] [place] [id number] Kathrine Haile CRNP 132 [facility] [place] [address] Health Maintenance Due Date Last Done Comments [...] this encounter Medical Devices Implanted Type Area Machine Maintenance Servicer Device Identifier Shelf Expiration Date Model / Serial / Lot Port Implant W/8f Poly Cath - [id number] Implanted:Qty: 1 on 05/12/2023 at [facility] : PERIPHERAL VASCULAR [id number] 07/14/2024 [id number] / / [id number] documented as of this encounter Procedures Procedure Name Priority Date/Time Associated Diagnosis Comments SURGICAL PATHOLOGY Routine 05/18/2023 2: 19 PM EDT Neoplasm of uncertain behavior of skin DERM IMAGE (SITE) Routine 05/18/2023 Neoplasm of uncertain behavior of skin documented in this encounter Results * SURGICAL PATHOLOGY (05/18/2023 2:19 PM EDT) Final Diagnosis A. Skin, L dorsal forearm, shave: Seborrheic keratosis 05/19/2023 2:05 PM EDT LABORATORY [facility] Clinical History See Order Comments 05/19/2023 2:05 PM EDT LABORATORY [facility] Order Comments A. Brown variegated macule L dorsal forearm, r/o MM 05/19/2023 2:05 PM EDT LAB[facility]ATORY [facility] Gross Description A. Skin. Received in formalin with a container labeled with "Ralf Larson", "[id number]", "1945" and " left dorsal forearm". Received is a 1.3 x 1.3 cm skin shave. The skin surface has a soares to light brown, slightly raised slightly rough hair bearing, dull, mottled macule encompasses the entire skin surface. The underlying tissue is inked. The specimen is serially sectioned into 4 and submitted in cassette A1 and A2. Gross By: 05/19/2023 2:05 PM EDT LABORATORY [facility] Sign Out Location Pathologist sign out performed at [facility] ([facility]), [place] [address]. 05/19/2023 2:05 PM EDT LABORATORY [facility] Photographic images and diagrams represent medel findings in this case; they are not intended to replace a complete review of the final diagnostic report. The following statement applies to Flow Cytometry, Histology, In situ Hybridization Assays and Molecular Genetics. This test was developed and performed at [facility] and its performance characteristics determined by [facility] [employer] It has not been cleared or approved by the U.S. Food and Drug Administration. The FDA has determined that such clearance or approval is not necessary. This test is used for clinical purposes. It should not be regarded as investigational or for research. Special stains, including histochemical stains, and studies using immunologic and MARY methodology (where applicable) are performed with appropriate positive and negative control reactions. 05/19/2023 2:05 PM EDT LABORATORY [facility] Tissue Skin structure / Unknown 05/18/2023 2:19 PM EDT 05/18/2023 2:19 PM EDT Comment:A. Brown variegated macule L dorsal forearm, r/o MM Natasha Nova PA-C LAB PATHOLO [facility] ORDER[facility]LES LAB[facility]ATORY [place] [address] [place] [address] * DERM IMAGE (SITE) (05/18/2023) 05/18/2023 Natasha Nvoa PA-C DIGITAL MICHELLE TOGRAPHY documented in this encounter Visit Diagnoses Diagnosis Neoplasm of uncertain behavior of skin- Primary Seborrheic keratosis Other seborrheic keratosis Multiple pigmented nevi Benign neoplasm of skin, site unspecified History of melanoma Personal history of malignant melanoma of [...] Advance Directives occurred with: Patient Care Teams Banquet Food Server Relationship Specialty Start Date End Date Sami Stephens DO [address] [facility] [place] [address] PCP - General Internal Medicine 01/08/22 documented as of this encounter
--- OUTSIDE RECORDS SUMMARY | 2023-09-12 16:21 | External Medical Summary ---
Author Name Unknown Address Unknown Organization K09:[facility] [place] [address] Laboratory Report Ordering Provider Test Date Status EMANI CAMPBELL 07/06/2023 11:39:45 Final Observation Date Value Abnormality Reference (Units ) Status Nucleated erythrocytes/100 leukocytes [Ratio] in Blood by Automated count 07/06/2023 11:39:45 Final Performing Location [facility] [place] [address]
--- OUTSIDE RECORDS SUMMARY | 2023-09-12 16:21 | External Medical Summary | Summary of Care ---
Author Name Unknown Organization [facility] Address [address] [facility] [place] [address] Phone [phone] Care Team Providers Care Wardrobe Specialist Name Role Phone Sami Stephens DO Primary Care Provider [phone] Encounter Details Date Type Department Care Team (Late st Contact Info) Description 06/21/2023 Population Health External Data Unspecified Department Allergies Active Allergy Reactions Criticality Noted Date Comments Penicillins 03/22/2023 Patient states had a reaction many years ago - that it was the "horse serum kind." documented as of this encounter (statuses as of 06/29/2023) Medications Medication Sig Dispensed Refills Start Date [...] Sulfamethoxazole-Tr imethoprim 800-160 MG Oral Tablet (Bactrim DS)Indications:Willis 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) Take 1 Tablet by mouth once a day on Tuesday, Tuesday, and Tuesday only. 30 Tablet 1 06/10/2023 Active documented as of this encounter (statuses as of 06/29/2023) Active Problems Problem Noted Date Diagnosed Date [...] as of this encounter (statuses as of 06/29/2023) Immunizations Name Administration Dates Next Due COVID-19 mRNA, LNP-s, No Pre serve, 2-Dose Series (Moderna) 09/23/2020,08/29/2020 COVID-19, mRNA, LNP-s, PF, B ooster, 100mcg/0.5mg (Moderna) 02/02/2022,06/08/2021 Covid-19, Mrna, Lnp-s, Pf, B ivalent, 50 Mcg, IM, 12 yrs and above (Moderna) 05/18/2022 Pneumococcal Conjugate Vacci ne, 20-valent ([id number]) 04/12/2022 Seasonal Influenza, Quadriva lent Hd (Fluzone [...] Description 06/30/2023 11:20 AM EST [facility] [address] [place] [address] Pia Padilla 132 [facility] [place] [address] 06/30/2023 11:30 AM EST [facility] [address] [place] [address] Randy Nurse Urology Raz [address] [place] [address] 06/30/2023 1:00 PM EST Telemedicine Hematology/On[facility] [address] [place] [address] Nurse Jordana Hem Onc [facility] [address] [place] [address] 07/01/2023 1:40 PM EST Office Visit Family Practice 65 [facility] 293 [place] [phone] Sami Stephens, DO 293 [facility] [address] 07/20/2023 10:45 AM EST Office Visit Hematology/Oncology [facility] [address] [place], [place] [address] Rasheed Maldonado MD [address] [place], [place] [address] 08/10/2023 3:00 PM EST Office Visit Family Practice [address] [facility] [address] [place] [phone] Sami Stephens, DO 293 [facility] [address] 08/30/2023 11:15 AM EST Office Visit Dermatology [facility] [address] [place], [place] [address] Nki Vieira MD [address] [place], [place] [address] 08/31/2023 3:15 PM EST Procedure Only Urology, [facility] 132 [facility] [place] [address] Marbin Ivan MD 27 [facility] [address] [place] [address] 09/22/2023 1:15 PM EST Office Visit Hematology/Oncology [facility] [address] [place] [address] Rasheed Maldonado MD [address] [place] [address] 03/12/2024 1:10 PM EDT Office Visit Dermatology [facility] [place] [address] [place] [address] Natasha Nova PA-C [address] [place] [address] 03/13/2024 1:30 PM EDT Office Visit Cardiology, [facility] [address] Angela Peter CRNP 400 [facility] [place] [phone] 05/17/2024 10:00 AM EDT Office Visit [facility] [phone] Kathrine Haile CR[facility] [address] Health Maintenance Due Date Last Done Comments [...] this encounter Medical Devices Implanted Type Area Exhibit Display Representative Device Identifier Shelf Expiration Date Model / Serial / Lot Port Implant W/8f Poly Cath - [id number] Implanted:Qty: 1 on 05/12/2023 at [facility] CR BARD : PERIPHERAL VASCULAR [id number] 07/14/2024 [id number] / / [id number] documented as of this encounter Advance Directives [...] Advance Directives occurred with: Patient Care Teams Wardrobe Specialist Relationship Specialty Start Date End Date Sami Stephens DO [address] [place] [address] PCP - General Internal Medicine 01/08/22 documented as of this encounter
--- OUTSIDE RECORDS SUMMARY | 2023-09-12 16:21 | External Medical Summary | Summary of Care ---
Author Name Unknown Organization [facility] Address [address] [place] [address] Phone [phone] Care Team Providers Care Machine I Engraver Name Role Phone Sami Stephens DO Primary Care Provider [phone] Reason for Visit * Reason Comments Follow Up Encounter Details Date Type Department Care Team (Late st Contact Info) Description 07/01/2023 1:40 PM EST Office Visit Family Practice [facility] [address] [place] [phone] Sami Stephens DO [address] [place] [address] Melanoma of face (HCC)*; Drug-induced pneumonitis; Acute respiratory failure with hypoxia (HCC); Urinary retention; 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); Moderate to severe aortic stenosis; Essential tremor; Gouty arthropathy; BPH with obstruction/lower urinary tract symptoms; HTN, goal below 150/90; SANDRINE on CPAP; Prediabetes; SCOTT (generalized anxiety disorder); Drug-induced constipation; Hypokalemia Allergies Active Allergy Reactions Criticality Noted Date Comments Pembrolizumab 07/01/2023 Penicillins 03/22/2023 Patient states had a reaction many years ago - that it was the "horse serum kind." documented as of this encounter (statuses as of 07/01/2023) Medications Medication Sig Dispensed Refills Start Date [...] 05/04/2023 Active predniSONE 10 MG Oral Tablet (Deltasone)Indicat ions: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 Taper per Dr Maldonado based on lab results. 100 Tablet 1 06/09/2023 Active Additional Information Patient taking differently: 20 mgOral Daily(AM), Taper per Dr Maldonado based on lab results, Reported on 07/01/2023 Sulfamethoxazole-T rimethoprim 800-160 MG Oral Tablet (Bactrim [...] the morning. 30 Capsule 5 07/01/2023 Active Polyethylene Glycol 3350 17 GM Oral Packet (MiraLax) Take 1 Packet by mouth in the morning and 1 Packet before bedtime. 0 Discontinue d(Refill) documented as of this encounter (statuses as of 07/01/2023) Active Problems Problem Noted Date Diagnosed Date [...] as of this encounter (statuses as of 07/01/2023) Immunizations Name Administration Dates Next Due COVID-19 mRNA, LNP-s, No Pre serve, 2-Dose Series (Moderna) 09/23/2020,08/29/2020 COVID-19, mRNA, LNP-s, PF, B ooster, 100mcg/0.5mg (Moderna) 02/02/2022,06/08/2021 Covid-19, Mrna, Lnp-s, Pf, B ivalent, 50 Mcg, IM, 12 yrs and above (Moderna) 05/18/2022 Pneumococcal Conjugate Vacci ne, 20-valent ([id number]) 04/12/2022 Seasonal Influenza, Quadriva lent Hd (Fluzone [...] Sign Reading Time Taken Comments Blood Pressure 120/76 07/01/2023 1:46 PM EST Pulse 74 07/01/2023 1:46 PM EST Temperature 36.1 C (97 F) 07/01/2023 1:46 PM EST Respiratory Rate 20 07/01/2023 1:46 PM EST Oxygen Saturation 92% 07/01/2023 1:46 PM EST Inhaled Oxygen Concentration - - Weight 142.1 kg (313 lb 3.2 oz) 07/01/2023 1:46 PM EST Height 182.9 cm (6') 07/01/2023 1:46 PM EST Body Mass Index 42.48 07/01/2023 1:46 PM EST documented in this encounter Progress Notes * Sami Stephens, - 07/01/2023 2:17 PM EST SUBJECTIVE: Ralf Larson is a 78 year old male. 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 He was admitted to [facility] for acute hypoxic respiratory failure due to Keytruda induced pneumonitis. He was admitted to [facility] 06/10/2023- 06/15/2023 due to respiratory failure, rhabdomyolysis, and hepatitis due to Keytruda. Shortness of breath has improved. CK and LFts are improving. He is unable to lay flat due to shortness of breath. No chest pain is present. Weight is down and appetite is fair. He was seen in the ED on06/26/2023 for Urinary Retention. Mosher was placed. He was seen by Urology removed mosher and he is able to void. Patient Active Problem List Diagnosis Code Morbid obesity due to excess calories ([facility]) E66.01 Gouty arthropathy M10.9 Dyslipidemia, goal LDL below 70 E78.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, N13.8 HTN, goal below 150/90 I10 Vitamin D deficiency E55.9 SANDRINE on CPAP G47.33 Body mass index (BMI) of 45.0 to 49.9 in adult ([facility]) Z68.42 Prediabetes R73.03 SCOTT (generalized anxiety disorder) F41.1 Moderate to severe aortic stenosis I35.0 Bradycardia, sinus R00.1 1st degree AV block I44.0 Sinus pause I45.5 Essential tremor G25.0 Melanoma of face ([facility]) C43.30 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 ([facility]) C79.89 Encounter for antineoplastic immunotherapy Z51.12 Metastasis to cervical lymph node ([facility]) C77.0 History of melanoma Z85.820 Drug-induced constipation K59.03 Current Outpatient Medications Medication Sig Dispense Refill Aspirin 81 MG Oral Tablet Delayed Release Take 1 Tablet by mouth daily. PM SM Vitamin D3 100 MCG (4000 UT) Oral Capsule (Cholecalciferol) Take by mouth 5,000 Units daily . CPAP every night at bedtime . Dulaglutide 1.5 MG/0.5ML Subcutaneous Solution Pen-injector (QuicklyChat) INJECT 1.5MG UNDER THE SKINONCE WEEKLY (Patient [...] performed by Tito Ortega MD at OR [facility] CATARACT SURGERY,COMPLEX 2016 BOTH EYES COLONOSCOPY has had several IDENTIFY SENTINEL NODE, RADIOACTIVE TRACER Left 04/11/2023 INJECTION PROCEDURE FOR IDENTIFICATION SENTINEL NODE performed by Tito Ortega MD at OR [facility] INFORMATION tonsils as a child IR VENOUS ACCESS MEDIPORT 05/12/2023 OTHER 2019 VIRECTOMY OD OTHER ACT [address] Townsend (08-21-21) PROCEDURE - GENERAL Left 11/23/2021 Left Inguinal hernia surgery by Dr Mak Fisher PROSTATE, LASER VAPORIZATION N/A 07/21/2022 LASER VAPORIZATION PROSTATE performed by Marbin Ivan MD at [facility] REMOVAL OF PROSTATE (TURP) N/A 07/21/2022 TRANSURETHRAL RESECTION PROSTATE ELECTROSURGICAL performed by Marbin Ivan MD at OR [facility] Review of patient's allergies indicates: [...] chest pain and palpitations. Gastrointestinal: Positive for diarrhea. Negative for abdominal pain, blood in stool, constipation,nausea and vomiting. Genitourinary: Negative for dysuria and hematuria. Musculoskeletal: Negative for back pain and gait problem. Neurological: Negative for dizziness, syncope and headaches. Psychiatric/Behavioral: Negative for behavioral problems, confusion, decreased concentration and sleep disturbance. OBJECTIVE: BP 120/76 | Pulse 74 | Temp 36.1 C (97 F) | Resp 20 | Ht 1.829 m (6') | Wt (!) 142.1 kg (313 lb3.2 oz) | SpO2 92% | BMI 42.48 kg/m | BSA 2.69 m Physical Exam [...] lower leg: Edema present. Comments: Leg edema improving Neurological: Mental Status: He is alert and oriented to person, place, and time. Mental status is at baseline. Motor: Weakness present. Gait: Gait normal. Psychiatric: Mood and Affect: Mood normal. Behavior: Behavior normal. Thought Content: Thought content normal. PLAN AND ASSESSMENT: Melanoma of face (HCC) (Primary) Keytruda stopped Continue to follow with Hematology / Oncology Drug-induced pneumonitis Acute respiratory failure with hypoxia (HCC) Improving. 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 Hypokalemia - Potassium Chloride ER 10 MEQ Oral Capsule Extended Release; Take 1 Capsule by mouth in the morning. - BASIC METABOLIC PANEL; Future; Expected date: 07/08/2023 Follow Up: Return in about 1 week (around 07/08/2023), or if symptoms worsen or fail to improve. Sami Stephens DO 2:18 PM 07/01/2023 documented in this encounter Nursing Notes * Jenae Garrett LPN - 07/01/2023 1:45 PM EST Here for follow up, did add keytruda to allergies. documented in this encounter Plan of Treatment Upcoming Encounters Date Type Department Care Team (Late st Contact Info) Description 07/05/2023 1:40 PM EST Office Visit Family Practice [address] [place] [address] 293 [place] [address] Sami Stephens, DO 293 [place] [address] 07/06/2023 12:00 PM EST Laboratory Laboratory [facility] [address] [place], [place] [phone] [place], [address]ery [address] [place] [address] 07/06/2023 1:00 PM EST Nurse Only Hematology/Oncology [facility] [address] [place], [place] [address] [place], Nurse Hem [facility] [address] [place] [address] 07/20/2023 10:45 AM EST Office Visit Hematology/Oncology [facility] [address] [place], [place] [address] Rasheed Maldonaod MD [address] [place], [place] [address] 08/10/2023 3:00 PM EST Office Visit Family Practice [address] [place] [address] 293 [place] [address] Sami Stephens, DO 293 [place] [address] 08/30/2023 11:15 AM EST Office Visit Dermatology [facility] [address] [place] [address] Nik Vieira MD [address] [place] [address] 08/31/2023 3:15 PM EST Procedure Only Urology, [facility] [address] [facility] [place] [address] Marbin Ivan MD [address] [facility] [address] [place] [address] 09/22/2023 1:15 PM EST Office Visit Hematology/Oncology [facility] [address] [facility] [place] [address] Rasheed Maldonado MD 200 [facility] [place] [address] 03/12/2024 1:10 PM EDT Office Visit Dermatology [facility] [address] [place] [address] Natasha Nova PA-C [address] [place] [address] 03/13/2024 1:30 PM EDT Office Visit Cardiology, [facility] [address] [facility] [place] [address] Angela Peter CRNP [address] [facility] [place] [phone] 05/17/2024 10:00 AM EDT Office Visit Sleep Disorders [facility] 132 [facility] [place] [phone] Kathrine Haile CRNP 132 [facility] [place] [address] Scheduled Orders Name Type Priority Associated Diagnoses Orde r Schedule BASIC METABOLIC PANEL Lab Routine Hypokalemia Expected: 07/08/2023 (Approximate), Expires: 06/30/2024 Health Maintenance Due Date Last Done Comments COVID-19 Vaccine ( season) 2023 05/18/2022, 02/02/2022, 06/08/2021, Additional history exists HbA1c 05/27/2024 05/27/2023, 01/14, 10/18/2022, Additional history exists Depression Screening 06/10/2024 06/10/2023 GFR 06/30/2024 06/30/2023, 11/0 03/2023, 06/09/2023, Additional history exists Albumin/Creatinine Ratio 01/08/2025 01/08/2022, 0811/2020 DTaP,Tdap,and Td Vaccines (2 - Td or [...] this encounter Medical Devices Implanted Type Area Digital Advertising Analyst Device Identifier Shelf Expiration Date Model / Serial / Lot Port Implant W/8f Poly Cath - [id number] Implanted:Qty: 1 on 05/12/2023 at [facility] CR BARD : PERIPHERAL VASCULAR [id number] 07/14/2024 [id number] / / [id number] documented as of this encounter Visit Diagnoses Diagnosis Melanoma of face (HCC)- Primary Malignant melanoma of skin of other and unspecified parts of face Drug-induced pneumonitis Pneumonia, organism unspecified Acute respiratory failure with hypoxia (HCC) Acute respiratory failure Urinary retention Retention of urine, unspecified 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) Secondary malignant neoplasm of other specified sites Moderate to severe aortic stenosis Essential tremor Essential and other specified forms of tremor Gouty arthropathy Gouty arthropathy, unspecified BPH with obstruction/lower urinary tract symptoms Hypertrophy of prostate with urinary obstruction and other lower urinary tract symptoms (LUTS) HTN, goal below 150/90 SANDRINE on CPAP Obstructive sleep apnea (adult) (pediatric) Prediabetes Other abnormal glucose SCOTT (generalized anxiety disorder) Generalized anxiety disorder Drug-induced constipation Other constipation Hypokalemia Hypopotassemia documented [...] Advance Directives occurred with: Patient Care Teams Machine I Engraver Relationship Specialty Start Date End Date Sami Stephens DO [address] [place] [address] PCP - General Internal Medicine 01/08/22 documented as of this encounter
--- OUTSIDE RECORDS SUMMARY | 2023-09-12 16:21 | External Medical Summary | Summary of Care ---
Author Name Unknown Organization [facility] Address [address] [place] [address] Phone [phone] Care Team Providers Care Human Resources Benefits Administrator Name Role Phone Sami Stephens DO Primary Care Provider [phone] Reason for Visit * Reason Comments Follow Up Encounter Details Date Type Department Care Team (Late st Contact Info) Description 07/01/2023 1:40 PM EST Office Visit Family Practice 65 [facility] [address] [place] [phone] Sami Stephens DO [address] [place] [address] Melanoma of face (HCC)*; Drug-induced pneumonitis; Acute [...] as of this encounter (statuses as of 07/04/2023) Medications Medication Sig Dispensed Refills Start Date [...] as of this encounter (statuses as of 07/04/2023) Active Problems Problem Noted Date Diagnosed Date [...] as of this encounter (statuses as of 07/04/2023) Immunizations Name Administration Dates Next Due COVID-19 mRNA, LNP-s, No Pre serve, 2-Dose Series (Moderna) 09/23/2020,08/29/2020 COVID-19, mRNA, LNP-s, PF, B ooster, 100mcg/0.5mg (Moderna) 02/02/2022,06/08/2021 Covid-19, Mrna, Lnp-s, Pf, B ivalent, 50 Mcg, IM, 12 yrs and above (Moderna) 05/18/2022 Pneumococcal Conjugate Vacci ne, 20-valent ([id number]) 04/12/2022 Seasonal Influenza, Quadriva lent Hd (Fluzone [...] Keytruda induced pneumonitis. He was admitted to [facility] 06/10/2023- 06/15/2023 due to respiratory [...] Code Morbid obesity due to excess calories ([facility]) E66.01 Gouty arthropathy M10.9 Dyslipidemia, goal LDL below 70 E78.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, N13.8 HTN, goal below 150/90 I10 Vitamin D deficiency E55.9 SANDRINE on CPAP G47.33 Body mass index (BMI) of 45.0 to 49.9 in adult ([facility]) Z68.42 Prediabetes R73.03 SCOTT (generalized anxiety disorder) F41.1 Moderate to severe aortic stenosis I35.0 Bradycardia, sinus R00.1 1st degree AV block I44.0 Sinus pause I45.5 Essential tremor G25.0 Melanoma of face ([facility]) C43.30 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 ([facility]) C79.89 Encounter for antineoplastic immunotherapy Z51.12 Metastasis to cervical lymph node ([facility]) C77.0 History of melanoma Z85.820 Drug-induced constipation K59.03 Current Outpatient Medications Medication Sig Dispense Refill Aspirin 81 MG Oral Tablet Delayed Release Take 1 Tablet by mouth daily. PM SM Vitamin D3 100 MCG (4000 UT) Oral Capsule (Cholecalciferol) Take by mouth 5,000 Units daily . CPAP every night at bedtime . Dulaglutide 1.5 MG/0.5ML Subcutaneous Solution Pen-injector (TodoCast TV) INJECT 1.5MG UNDER THE SKINONCE WEEKLY (Patient [...] performed by Tito Ortega MD at [place] [facility] CATARACT [place]GERY,COMPLEX 2016 BOTH EYES COLONOSCOPY has had several IDENTIFY SENTINEL NODE, RADIOACTIVE TRACER Left 04/11/2023 INJECTION PROCEDURE FOR IDENTIFICATION SENTINEL NODE performed by Tito Ortega MD at OR [facility] INFORMATION tonsils as a child IR VENOUS ACCESS MEDIPORT 05/12/2023 OTHER 2019 VIRECTOMY OD OTHER ACT [address] Townsend (08-21-21) PROCEDURE - GENERAL Left 11/23/2021 Left Inguinal hernia surgery by Dr Mak Fisher PROSTATE, LASER VAPORIZATION N/A 07/21/2022 LASER VAPORIZATION PROSTATE performed by Marbin Ivan MD at [facility] REMOVAL OF PROSTATE (TURP) N/A 07/21/2022 TRANSURETHRAL RESECTION PROSTATE ELECTROSURGICAL performed by Marbin Ivan MD at OR [facility] Review of patient's allergies indicates: Allergen [...] 1:40 PM EST Office Visit Family Practice [address] [place] [address] 293 [place] [address] Sami Stephens, DO 293 [place] [address] 07/06/2023 12:00 PM EST Laboratory Laboratory [facility] [address] [place], [place] [phone] [place], Lab Scenery [address] [place] [address] 07/06/2023 1:00 PM EST Nurse Only Hematology/Oncology [facility] [address] [place], [place] [address] [place], Nurse Hem Onc [facility] [address] [place] [address] 07/20/2023 10:45 AM EST Office Visit Hematology/Oncology [facility] [address] [place], [place] [address] Rasheed Maldonado MD [address] [place], [place] [address] 08/10/2023 3:00 PM EST Office Visit Family Practice [address] [place] [address] [address] [place] [address] Sami Stephens, DO [address] [place] [address] 08/30/2023 11:15 AM EST Office Visit Dermatology [facility] [address] [place] [address] Nik Vieira MD [address] [place] [address] 08/31/2023 3:15 PM EST Procedure Only Urology, [facility] [address] [facility] [place] [address] Marbin Ivan MD [address] [place] [address] 09/22/2023 1:15 PM EST Office Visit [facility]ology[facility]On[facility] [address] [facility] [place] [address] Rasheed Maldonado MD [address] [facility] [place] [address] 03/12/2024 1:10 PM EDT Office Visit Dermatology [facility] [place] [address] [place] [address] Natasha Nova PA-C [address] [place] [address] 03/13/2024 1:30 PM EDT Office Visit Cardiology, [facility] [address] [facility] [place] [address] Angela Peter CRNP [address] [facility] [place] [phone] 05/17/2024 10:00 AM EDT Office Visit Sleep Disorders [facility] [address] [facility] [place] [phone] Kathrine Haile CRNP 132 [facility] [place] [address] Scheduled Orders Name Type Priority Associated Diagnoses Orde r Schedule BASIC METABOLIC PANEL Lab Routine Hypokalemia Expected: 07/08/2023 (Approximate), Expires: 06/30/2024 Health Maintenance Due Date Last Done Comments COVID-19 Vaccine ( season) 2023 05/18/2022, 02/02/2022, 06/08/2021, Additional history exists HbA1c 05/27/2024 05/27/2023, 01/14, 10/18/2022, Additional history exists GFR 06/30/2024 06/30/2023, 11/0 03/2023, 06/09/2023, Additional history exists Depression Screening 07/01/2024 07/01/2023 Albumin/Creatinine Ratio 01/08/2025 01/08/2022, 03/16 DTaP,Tdap,and Td [...] this encounter Medical Devices Implanted Type Area Outdoor Adventure Instructor Device Identifier Shelf Expiration Date Model / Serial / Lot Port Implant W/8f Poly Cath - [id number] Implanted:Qty: 1 on 05/12/2023 at [facility] CR BARD : PERIPHERAL VASCULAR [id number] 07/14/2024 [id number] / / [id number] documented as of this encounter Visit Diagnoses [...] Advance Directives occurred with: Patient Care Teams Human Resources Benefits Administrator Relationship Specialty Start Date End Date Sami Stephens DO [address] [place] [address] PCP - General Internal Medicine 01/08/22 documented as of this encounter
--- OUTSIDE RECORDS SUMMARY | 2023-09-12 16:21 | External Medical Summary | Summary of Care ---
Author Name Unknown Organization [facility] Address [address] [place] [address] Phone [phone] Care Team Providers Care Pharmacy Coordinator Name Role Phone Sami Stephens DO Primary Care Provider [phone] Reason for Visit * Reason Onset Date Comments Test Results Lab 06/30/2023 Encounter Details Date Type Department Care Team (Late st Contact Info) Description 06/30/2023 Telephone Hematology/Oncology Treatment, [place] [address] [place] [address] Sami Stephens DO [address] [place] [address] Test Results Lab Allergies Active Allergy Reactions [...] Sulfamethoxazole-Tr imethoprim 800-160 MG Oral Tablet (Bactrim DS)Indications:[place] 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) [...] (Moderna) 05/18/2022 Pneumococcal Conjugate Vacci ne, 20-valent ([id number]) 04/12/2022 Seasonal Influenza, Quadriva lent Hd (Fluzone [...] Miscellaneous Notes * Telephone Encounter - Linda Sears, RN - 06/30/2023 1:48 PM EST Patient had lab work to check LFT's/ adjust prednisone. Potassium 3.1. Patient states that he was in the hospital Tuesday with constipation, had taken "a lot of medications" to try to have a BM prior to going. He was given a enema in ER and discharged withinstructions to take 4 stool softeners a day and metamucil twice a day. Stool has been "mushy". Revi ewed with Dr Maldonado, advised patient that potassium is likely low due to medications for constipation/ having loose stools initially when he was able to have a BM. Patient has appt with Dr Stephens tomorrow, would like him to follow up with Dr Stephens on this result and for further recommendations. Patient verbalized understanding, states that he will also increase potassium through diet. Appts made with our office for Friday 07/[address] Stephens: FYI documented in this encounter Plan of Treatment Upcoming Encounters Date Type Department Care Team (Late st Contact Info) Description 07/01/2023 1:40 PM EST Office Visit Family Practice 65 [facility] 293 [place] [address] Sami Stephens, 293 [facility] [place] [address] 07/06/2023 12:00 PM EST Laboratory Laboratory [facility] [address] [place] [address] [place], Lab [facility] 200 [facility] [place] [address] 07/06/2023 1:00 PM EST Nurse Only Hematology/Oncology [facility] [address] [place] [address] [place], Nurse Hem Onc [facility] 200 [facility] [place] [address] 07/20/2023 10:45 AM EST Office Visit Hematology/Oncology [facility] [address] [place] [address] Rasheed Maldonado MD [address] [place] [address] 08/10/2023 3:00 PM EST Office Visit Family Practice [address], [place] 293 [place] [place] [address] Sami Stephens, 293 [facility] [place] [address] 08/30/2023 11:15 AM EST Office Visit Dermatology [facility] [address] [place] [address] Nik Vieira MD 200 [facility] [address] 08/31/2023 3:15 PM EST Procedure Only Urology, [facility] 132 [place] [address] Marbin Ivan MD [address] [place] [address] [place] [address] 09/22/2023 1:15 PM EST Office Visit Hematology/Oncology [facility] [address] [place], [place] [address] Rasheed Maldonado MD 200 [facility] [place] [address] 03/12/2024 1:10 PM EDT Office Visit Dermatology [facility] [address] [place] [address] Natasha Nova PA-C [address] [place] [address] 03/13/2024 1:30 PM EDT Office Visit Cardiology, [facility] 132 [place] [address] Angela Peter CRNP [address] [place] [address] [place] [phone] 05/17/2024 10:00 AM EDT Office Visit Sleep Disorders Ctr [facility] [address] [place] [address] Kathrine Haile, OLEG [address] [place] [address] Health Maintenance Due Date Last Done Comments [...] this encounter Medical Devices Implanted Type Area Rock Worker Device Identifier Shelf Expiration Date Model / Serial / Lot Port Implant W/8f Poly Cath - [id number] Implanted:Qty: 1 on 05/12/2023 at [facility] : PERIPHERAL VASCULAR [id number] 07/14/2024 [id number] / / [id number] documented as of this encounter Advance Directives [...] Advance Directives occurred with: Patient Care Teams Pharmacy Coordinator Relationship Specialty Start Date End Date Sami Stephens DO 293 [facility] [place] [address] PCP - General Internal Medicine 01/08/22 documented as of this encounter
--- OUTSIDE RECORDS SUMMARY | 2023-09-12 16:21 | External Medical Summary ---
Author Name Unknown Address Unknown Organization [facility] [facility] [address] [place] [address] Laboratory Report Ordering Provider Test Date Status EMANI CAMPBELL 06/30/2023 11:15:32 Final Observation Date Value Abnormality Reference (Units ) Status WBC, Total 06/30/2023 11:15:32 12.44 Above high normal 4 .00-10.80 (K/uL) Final RBC 06/30/2023 11:15:32 5.12 4.50-5.25 (M/uL) Final Hemoglobin 06/30/2023 11:15:32 15.9 14.0-16.8 (g/dL) Final HCT 06/30/2023 11:15:32 47.8 40.0-48.4 (%) Final MCV 06/30/2023 11:15:32 93.4 82.0-99.5 (fL) Final MCH 06/30/2023 11:15:32 31.1 27.0-34.0 (pg) Final MCHC 06/30/2023 11:15:32 33.3 32.0-36.0 (g/dL) Final RDW 06/30/2023 11:15:32 15.0 11.5-15.5 (%) Final Platelets 06/30/2023 11:15:32 162 140-400 (K /uL) Final MPV 06/30/2023 11:15:32 9.2 6.6-11.1 ( fL) Final Performing Location LABORATORY [facility] K[place] [address] [place] [address]
--- OUTSIDE RECORDS SUMMARY | 2023-09-12 16:21 | External Medical Summary ---
Author Name Unknown Address Unknown Organization K0G:LABORATORY [place] [address] [place] [address] Laboratory Report Ordering Provider Test Date Status EMANI CAMPBELL 06/30/2023 11:15:32 Final Observation Date Value Abnormality Reference (Units ) Status BUN 06/30/2023 11:15:32 25 Above high normal 6-20 (mg/dL) Final Creatinine 06/30/2023 11:15:32 1.3 Above high normal 0.6-1.2 (mg/dL) Final Glomerular filtration rate/1.73 sq M.predicted [Volume Rate/Area] in Serum, Plasma or Blood by Creatinine-based formula (CKD-EPI) 06/30/2023 11:15:32 56 Below low normal >=60 (mL/min) Final eGFR is calculated based on the CKD-EPI 2020 equation SODIUM 06/30/2023 11:15:32 141 135-146 (m mol/L) Final Potassium 06/30/2023 11:15:32 3.1 Below low normal 3.5 -5.1 (mmol/L) Final Cl 06/30/2023 11:15:32 97 Below low normal 98- 107 (mmol/L) Final CO2 06/30/2023 11:15:32 34 Above high normal 22 -32 (mmol/L) Final Anion gap 06/30/2023 11:15:32 10 7-15 (mmol /L) Final Glucose 06/30/2023 11:15:32 117 70-120 (mg /dL) Final Albumin 06/30/2023 11:15:32 3.7 Below low normal 3.8 -5.0 (g/dL) Final AST (Aspartate aminotransferase) 06/30/2023 11:15:32 91 Above high normal 10-50 (U/L) Final Alk Phos 06/30/2023 11:15:32 77 35-130 (U/ L) Final Bilirubin, Total 06/30/2023 11:15:32 0.5 <=1 .2 (mg/dL) Final Calcium 06/30/2023 11:15:32 9.7 8.4-10.2 ( mg/dL) Final Protein 06/30/2023 11:15:32 6.3 6.0-8.3 (g /dL) Final ALT (Alanine aminotransferase) 06/30/2023 11:15:32 141 Above high normal 10-50 (U/L) Final Performing Location [facility] - [address] [facility] [address]
--- OUTSIDE RECORDS SUMMARY | 2023-09-12 16:21 | External Medical Summary ---
Author Name Unknown Address Unknown Organization K09:LABORATORY [place] 56[address] [place] [address] Laboratory Report Ordering Provider Test Date Status EMANI CAMPBELL 07/06/2023 11:39:45 Final Observation Date Value Abnormality Reference (Units ) Status BUN 07/06/2023 11:39:45 16 6-20 (mg/dL) Final Creatinine 07/06/2023 11:39:45 1.2 0.6-1.2 (mg/dL) Final Glomerular filtration rate/1.73 sq M.predicted [Volume Rate/Area] in Serum, Plasma or Blood by Creatinine-based formula (CKD-EPI) 07/06/2023 11:39:45 66 >=60 (mL/min) Final eGFR is calculated based on the CKD-EPI 2020 equation SODIUM 07/06/2023 11:39:45 140 135-146 (m mol/L) Final Potassium 07/06/2023 11:39:45 3.6 3.5-5.1 (m mol/L) Final Cl 07/06/2023 11:39:45 99 98-107 (mm ol/L) Final CO2 07/06/2023 11:39:45 32 22-32 (mmo l/L) Final Anion gap 07/06/2023 11:39:45 9 7-15 (mmol /L) Final Glucose 07/06/2023 11:39:45 159 Above high normal 70 -120 (mg/dL) Final Albumin 07/06/2023 11:39:45 3.7 Below low normal 3.8 -5.0 (g/dL) Final AST (Aspartate aminotransferase) 07/06/2023 11:39:45 59 Above high normal 10-50 (U/L) Final Alk Phos 07/06/2023 11:39:45 76 35-130 (U/ L) Final Bilirubin, Total 07/06/2023 11:39:45 0.3 <=1 .2 (mg/dL) Final Calcium 07/06/2023 11:39:45 9.3 8.4-10.2 ( mg/dL) Final Protein 07/06/2023 11:39:45 6.4 6.0-8.3 (g /dL) Final ALT (Alanine aminotransferase) 07/06/2023 11:39:45 93 Above high normal 10-50 (U/L) Final Performing Location LABORATORY [place] [address] [place] [address]
--- OUTSIDE RECORDS SUMMARY | 2023-09-12 16:21 | External Medical Summary ---
Author Name Unknown Address Unknown Organization K0G:LABORATORY [place] [address] [place] [address] Laboratory Report Ordering Provider Test Date Status EMANI CAMPBELL 06/30/2023 11:15:32 Final Observation Date Value Abnormality Reference (Units ) Status SYNC LEUKOCYTES IN BLOOD BY AUTOMATED COUNT 06/30/2023 11:15:32 12.44 Above high normal 4.00-10.80 (K/uL) Final Segs 06/30/2023 11:15:32 70.7 40.0-75.0 (%) Final Lymphs % 06/30/2023 11:15:32 19.6 18.0-42.0 (%) Final Monos 06/30/2023 11:15:32 8.4 1.0-11.0 (%) Final Eosinophils 06/30/2023 11:15:32 0.9 0.0-6.0 (%) Final Basos 06/30/2023 11:15:32 0.4 0.0-2.0 (%) Final Absolute Segs 06/30/2023 11:15:32 8.80 Above high normal 1.80-7.70 (K/uL) Final Lymphs, absolute 06/30/2023 11:15:32 2.44 1.00-4.80 (K/ul) Final Monos, Abs 06/30/2023 11:15:32 1.04 0.00-1.10 (K/uL) Final Eos, Abs 06/30/2023 11:15:32 0.11 0.00-0.70 (K/uL) Final Basos, Abs 06/30/2023 11:15:32 0.05 0.00-0.20 (K/uL) Final Performing Location LABORATORY [place] [address] [place] [address]
--- OUTSIDE RECORDS SUMMARY | 2023-09-12 16:21 | External Medical Summary | Summary of Care ---
Author Name Unknown Organization [facility] Address [address] [facility] [place] [address] Phone [phone] Care Team Providers Care Hunting Sales Associate Name Role Phone Sami Stephens DO Primary Care Provider [phone] Reason for Visit * Reason Comments Nurse Documentation Encounter Details Date Type Department Care Team (Late st Contact Info) Description 06/30/2023 1:00 PM EST Telemedicine Hematology/Oncology [facility] Eren Silveira [address] [place] [address] Jordana Nurse Hem Onc [facility] [address] [place] [address] 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 Patient currently on 30mg prednisone daily. Per Dr Maldonado, decrease to 20mg daily. Called patient who verbalized understanding. documented in this encounter Nursing Notes * Linda Sears RN - 06/30/2023 1:44 PM EST AST 91, ALT 141. Patient currently on 30mg prednisone daily. Per Dr Maldonado, decrease to 20mg daily. Called patient who verbalized understanding. documented in this encounter Plan of Treatment Upcoming Encounters Date Type Department Care Team (Late st Contact Info) Description 07/01/2023 1:40 PM EST Office Visit [address] 293 [place] [phone] Sami Stephens, 293 [place] [address] 07/06/2023 12:00 PM EST Laboratory Laboratory [facility] [address] [place], [place] [address] [place], Lab [address] [place] [address] 07/06/2023 1:00 PM EST Nurse Only Hematology/Oncology [facility] [address] [place] [address] [place], Nurse Hem Onc [address] [place], [place] [address] 07/20/2023 10:45 AM EST Office Visit Hematology/Oncology [facility] [address] [place] [address] Rsaheed Maldonado MD [address] [place], [place] [address] 08/10/2023 3:00 PM EST Office Visit [address] 293 [place] [phone] Sami Stephens, 293 [facility] [address] 08/30/2023 11:15 AM EST Office Visit Dermatology [facility] [address] [place] [address] Nik Vieira MD [address] [place] [address] 08/31/2023 3:15 PM EST Procedure Only Urology, [facility] 132 [facility] [place] [address] Marbin Ivan MD [address] [place] [address] [place] [address] 09/22/2023 1:15 PM EST Office Visit Hematology/Oncology [facility] [address] [place] [address] Rasheed Maldonado MD 200 [facility] [place] [address] 03/12/2024 1:10 PM EDT Office Visit Dermatology [facility] [address] [place] [address] Natasha Nova PA-C [address] [place] [address] 03/13/2024 1:30 PM EDT Office Visit Cardiology, [facility] 132 [facility] [place] [address] Angela Peter CRNP [address] [place] [address] [place] [phone] 05/17/2024 10:00 AM EDT Office Visit Sleep Disorders [facility] 132 [facility] [place] [phone] Kathrine Haile CRNP 132 [place] [address] Health Maintenance Due Date Last Done Comments [...] this encounter Medical Devices Implanted Type Area Hydraulic Strainer Operator Device Identifier Shelf Expiration Date Model / Serial / Lot Port Implant W/8f Poly Cath - [id number] Implanted:Qty: 1 on 05/12/2023 at [facility] : PERIPHERAL VASCULAR [id number] 07/14/2024 [id number] / / [id number] documented as of this encounter Visit Diagnoses Diagnosis 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
--- OUTSIDE RECORDS SUMMARY | 2023-09-12 16:21 | External Medical Summary | Summary of Care ---
Author Name Unknown Organization [facility] Address [address] [place] [address] Phone [phone] Care Team Providers Care Unarmed Security Guard Name Role Phone Sami Stephens DO Primary Care Provider [phone] Reason for Visit * Reason Comments Nurse Documentation Encounter Details Date Type Department Care Team (Late st Contact Info) Description 06/30/2023 11:30 AM EST Nurse Only Urology, [facility] [address] [place] [address] PadillaNurse hever Urology [facility] [address] [facility] [address] Nurse Documentation Allergies Active Allergy Reactions Criticality Noted Date [...] imethoprim 800-160 MG Oral Tablet (Bactrim DS)Indications:[place] 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) [...] (Moderna) 05/18/2022 Pneumococcal Conjugate Vacci ne, 20-valent ([id number]) 04/12/2022 Seasonal Influenza, Quadriva lent Hd (Fluzone [...] as of this encounter Nursing Notes * Veronica Colon LPN - 06/30/2023 11:48 AM EST Patient's bladder was instilled 120 cc of sterile water. Catheter balloon then deflated and catheter removed. Patient proceeded to void around catheter, then missed urinal. Patient had 25 cc of clearurine in urinal after repositioning. Patient's bladder scanned for 70 mL. Patient tolerated procedure well. Dr Ivan made aware. documented in this encounter Plan of Treatment Upcoming Encounters Date Type Department Care Team (Late st Contact Info) Description 06/30/2023 1:00 PM EST Telemedicine Hematology/Oncology [facility] [address] [place] [address] Jord[place], Nurse Hem Onc [facility] 200 [facility] [place] [address] 07/01/2023 1:40 PM EST Office Visit Family Practice [address] [place] [address] 293 [place] [phone] Sami Stephens, DO 293 [facility] [place] [address] 07/20/2023 10:45 AM EST Office Visit Hematology/Oncology [facility] 200 [facility] [place] [address] Rasheed Maldonado MD 200 [facility] [place], [place] [address] 08/10/2023 3:00 PM EST Office Visit [address] 293 [place] [address] Sami Stephens, DO 293 [facility] [place] [address] 08/30/2023 11:15 AM EST Office Visit Dermatology [facility] 200 [facility] [place] [address] Nik Vieira MD 200 [facility] [place], [place] [address] 08/31/2023 3:15 PM EST Procedure Only Urology, [facility] 132 [place] [address] Marbin Ivan MD 27 [facility] [address] [place] [address] 09/22/2023 1:15 PM EST Office Visit Hematology/Oncology [facility] 200 [place] [address] Rasheed Maldonado MD 200 [facility] [place] [address] 03/12/2024 1:10 PM EDT Office Visit Dermatology [facility] [address] [place] [address] Natasha Nova PA-C [address] [place] [address] 03/13/2024 1:30 PM EDT Office Visit Cardiology, [facility] 132 [facility] [address] Angela Peter CRNP [address] [place] [address] [place] [phone] 05/17/2024 10:00 AM EDT Office Visit Sleep Disorders Ctr [facility] [address] [place] [phone] Kathrine Haile CRNP 132 [place] [address] Health Maintenance Due Date Last Done Comments COVID-19 Vaccine ( season) 2023 05/18/2022, 02/02/2022, 06/08/2021, Additional history exists HbA1c 05/27/2024 05/27/2023, 01/14, 10/18/2022, Additional history exists Depression Screening 06/10/2024 06/10/2023 GFR 06/22/2024 06/30/2023, 11/0 03/2023, 06/09/2023, Additional history exists [...] this encounter Medical Devices Implanted Type Area Pediatric Clinical Dietician Device Identifier Shelf Expiration Date Model / Serial / Lot Port Implant W/8f Poly Cath - [id number] Implanted:Qty: 1 on 05/12/2023 at [facility] : PERIPHERAL VASCULAR [id number] 07/14/2024 [id number] / / [id number] documented as of this encounter Advance Directives [...] Advance Directives occurred with: Patient Care Teams Unarmed Security Guard Relationship Specialty Start Date End Date Sami Stephens DO [address] [place] [address] PCP - General Internal Medicine 01/08/22 documented as of this encounter
--- OUTSIDE RECORDS SUMMARY | 2023-09-12 16:22 | External Medical Summary | Summary of Care ---
Author Name Unknown Organization [facility] Address [address] [place] [address] Phone [phone] Care Team Providers Care Blender Laborer Name Role Phone Sami Stephens DO Primary Care Provider Reason for Visit * Reason Onset Date Comments Appointment 06/27/2023 Encounter Details Date Type Department Care Team (Late st Contact Info) Description 06/27/2023 Telephone Access Center, [place] [address] [facility] *DO NOT REMOVE THIS DEPARTMENT* [place], [place] [id number] Services, Scheduling [address] [place] [address] Appointment Allergies Active Allergy Reactions Criticality Noted Date Comments Penicillins 03/22/2023 Patient states had a reaction many years ago - that it was the "horse serum kind." documented as of this encounter (statuses as of 06/27/2023) Medications Medication Sig Dispensed Refills Start Date [...] Sulfamethoxazole-Tr imethoprim 800-160 MG Oral Tablet (Bactrim DS)Indications:[place] 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) [...] as of this encounter (statuses as of 06/27/2023) Active Problems Problem Noted Date Diagnosed Date [...] as of this encounter (statuses as of 06/27/2023) Immunizations Name Administration Dates Next Due COVID-19 mRNA, LNP-s, No Pre serve, 2-Dose Series (Moderna) 09/23/2020,08/29/2020 COVID-19, mRNA, LNP-s, PF, B ooster, 100mcg/0.5mg (Moderna) 02/02/2022,06/08/2021 Covid-19, Mrna, Lnp-s, Pf, B ivalent, 50 Mcg, IM, 12 yrs and above (Moderna) 05/18/2022 Pneumococcal Conjugate Vacci ne, 20-valent ([id number]) 04/12/2022 Seasonal Influenza, Quadriva lent Hd (Fluzone [...] encounter Miscellaneous Notes * Telephone Encounter - Gisela Ludwig, SANDRINE - 06/27/2023 3:46 PM EST Pt returned call I did inform the pt that it was okay for him to have his labs drawn on 06/30 at [facility]. He states that he will have them drawn prior to his Urology appt and that it would be okay if the office just calls him with his results. He states that he did want to let the office know that he was at the ER over the weekend and they took labs there and everything still looked good. If there are any questions to please feel free to call or message him. * Telephone Encounter - Linda Sears RN - 06/27/2023 3:35 PM EST Ok to change appts to 06/30. Called patient, left message for him that this is ok. Will also send MyG. * Telephone Encounter - Yuliet Harris OSA - 06/27/2023 3:19 PM EST Pt calling asking if he can come on the 16th instead of the 15th for his appt. Is getting cath out on the 16th wanted to come all at once. Asking for a call back. documented in this encounter Plan of Treatment Upcoming Encounters Date Type Department Care Team (Late st Contact Info) Description 06/29/2023 2:00 PM EST Nurse Only Hematology/Oncology [facility] 200 [facility] [place] [place] [address] Jordana Nurse Hem Onc [facility] 200 [place] [address] 06/30/2023 11:30 AM EST Nurse Only Urology, [facility] [address] [facility] [place] [address] Nurse Eyal Padillay Raz 132 [facility] [place] [address] 07/01/2023 1:40 PM EST Office Visit Family Practice [address] [place] [address] 293 [place] [address] Sami Stephens, 293 [facility] [place] [address] 07/20/2023 10:45 AM EST Office Visit Hematology/Oncology [facility] [address] [place] [address] Rasheed Maldonado MD [address] [place] [address] 08/10/2023 3:00 PM EST Office Visit Family Practice [address] [place] [address] 293 [place] [address] Sami Stephens, 293 [place] [address] 08/30/2023 11:15 AM EST Office Visit Dermatology [facility] [address] [place] [address] Nik Vieira MD 200 [facility] [place] [address] 08/31/2023 3:15 PM EST Procedure Only Urology, [facility] 132 [facility] [place] [address] Marbin Ivan MD 27 [facility] 270 [place] [address] 09/22/2023 1:15 PM EST Office Visit Hematology/Oncology [facility] [address] [place], [place] [address] Rasheed Maldonado MD [address] [place] [address] 03/12/2024 1:10 PM EDT Office Visit Dermatology [facility] [place] [place] [address] [facility] [address] Natasha Nova PA-C 3[address] [facility] [place] [place] [address] 03/13/2024 1:30 PM EDT Office Visit Cardiology, [facility] 132 [facility] [place] [address] Angela Peter CRNP [address] [place] [address] 05/17/2024 10:00 AM EDT Office Visit Sleep Disorders Ctr [facility] 132 [facility] [place] [phone] Kathrine Haile CRNP 132 [facility] [place] [address] Health Maintenance Due Date Last Done Comments [...] this encounter Medical Devices Implanted Type Area Boring Machine Operator Production Device Identifier Shelf Expiration Date Model / Serial / Lot Port Implant W/8f Poly Cath - [id number] Implanted:Qty: 1 on 05/12/[address] [facility] CR BARD : PERIPHERAL VASCULAR [id number] 07/14/2024 [id number] / / [id number] documented as of this encounter Advance Directives [...] Advance Directives occurred with: Patient Care Teams Blender Laborer Relationship Specialty Start Date End Date Sami Stephens DO [address] [place] [address] PCP - General Internal Medicine 01/08/22 documented as of this encounter
--- OUTSIDE RECORDS SUMMARY | 2023-09-12 16:22 | External Medical Summary | Summary of Care ---
Author Name Unknown Organization [facility] Address [address] [place] [address] Phone [phone] Care Team Providers Care Cuff Slitter Name Role Phone Sami Stephens DO Primary Care Provider [phone] Reason for Visit * Reason Onset Date Comments Appointment 06/27/2023 Encounter Details Date Type Department Care Team (Late st Contact Info) Description 06/27/2023 Telephone Access Center, [place] 100 [address] [facility] *DO NOT REMOVE THIS DEPARTMENT* [place], [place] [id number] Services, Scheduling [address] [place] [address] Appointment Allergies Active Allergy Reactions Criticality Noted [...] Sulfamethoxazole-Tr imethoprim 800-160 MG Oral Tablet (Bactrim DS)Indications:[place] static melanoma to head and neck [...] (Moderna) 05/18/2022 Pneumococcal Conjugate Vacci ne, 20-valent ([id number]) 04/12/2022 Seasonal Influenza, Quadriva lent Hd (Fluzone [...] encounter Miscellaneous Notes * Telephone Encounter - Lauren Ariza OSA - 06/28/2023 8:07 AM EST Per nursing canceled appt for 06/29 and updated appts for 06/30. * Telephone Encounter - Linda Sears RN - 06/28/2023 7:54 AM EST Scheduling: - please cancel appts 06/29/23 - please add patient for a lab appt 06/30 at at 11:30am "CBCd, CMP" - please add patient for a telephone nurse visit 06/30 at 1pm "call patient with lab results" * Telephone Encounter - Gisela Ludwig OSA - 06/27/2023 3:46 PM EST Pt returned call I did inform the pt that it was okay for him to have his labs drawn on 06/30 at [facility]. He states that he will have them [...] Description 06/30/2023 11:20 AM EST Laboratory Laboratory, [facility] 132 [facility], [place] [address] Randy Lab [facility] 132 [facility], [place] [address] 06/30/2023 11:30 AM EST Nurse Only Urology, [facility] 132 [facility] [address] Randy Nurse Urology [facility] 132 [facility], [place] [address] 06/30/2023 1:00 PM EST Nurse Only Hematology/Oncology [facility] 200 [facility] [place] [address] Jordana Nurse Hem Onc [address], [place] [address] 07/01/2023 1:40 PM EST Office Visit Family Practice [address] [facility] 293 [place] [address] Sami Stephens, 293 [facility], [place] [address] 07/20/2023 10:45 AM EST Office Visit Hematology/Oncology [facility] [address] [place], [place] [address] Rasheed Maldonado MD 200 [facility], [place] [address] 08/10/2023 3:00 PM EST Office Visit Family Practice [address] [facility] 293 [facility], [place] [phone] Sami Stephens, 293 [facility], [place] [address] 08/30/2023 11:15 AM EST Office Visit Dermatology [facility] [address] [place], [place] [address] Nik Vieira MD 200 [place] [address] 08/31/2023 3:15 PM EST Procedure Only Urology, [facility] 132 [facility] [place] [address] Marbin Ivan MD [address] [address] 09/22/2023 1:15 PM EST Office Visit Hematology/Oncology [facility] 200 [place] [address] Rasheed Maldonado MD 200 [facility] [place] [address] 03/12/2024 1:10 PM EDT Office Visit Dermatology [facility] 3[address] [place] [address] Natasha Nova PA-C 3228 [place] [address] 03/13/2024 1:30 PM EDT Office Visit Cardiology, [facility] 132 [facility] [place] [address] Angela Peter CRNP [address] [place] [address] [place] [address] 05/17/2024 10:00 AM EDT Office Visit Sleep Disorders Ctr [facility] 132 [facility] [phone] Kathrine Haile CRNP 132 [facility] [place] [address] Health Maintenance Due Date Last Done Comments [...] this encounter Medical Devices Implanted Type Area Irish Moss Gatherer Device Identifier Shelf Expiration Date Model / Serial / Lot Port Implant W/8f Poly Cath - [id number] Implanted:Qty: 1 on 05/12/2023 at [facility] CR BARD : PERIPHERAL VASCULAR [id number] 07/14/2024 [id number] / / [id number] documented as of this encounter Advance Directives [...] Advance Directives occurred with: Patient Care Teams Cuff Slitter Relationship Specialty Start Date End Date Sami Stephens DO 293 [place] [address] PCP - General Internal Medicine 01/08/22 documented as of this encounter
--- OUTSIDE RECORDS SUMMARY | 2023-09-12 16:22 | External Medical Summary | Summary of Care ---
Author Name Unknown Organization [facility] Address [address] [place] [address] Phone [phone] Care Team Providers Care Needle Grader Name Role Phone Sami Stephens DO Primary Care Provider [phone] Reason for Visit * Reason Onset Date Comments Appointment 06/27/2023 Encounter Details Date Type Department Care Team (Late st Contact Info) Description 06/27/2023 Telephone Access Center, [place] 100 [address] [facility] *DO NOT REMOVE THIS DEPARTMENT* [place], [place] [phone] Services, Scheduling [address] [place] [address] Appointment Allergies Active Allergy Reactions Criticality Noted [...] Sulfamethoxazole-Tr imethoprim 800-160 MG Oral Tablet (Bactrim DS)Indications:[place] 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 He states that he will have [...] 06/29/2023 2:00 PM EST Nurse Only Hematology/Oncology [facility] [address] [place] [address] Jordana Nurse Hem Onc [address] [place] [address] 06/30/2023 11:30 AM EST Nurse Only Urology, Leonid Padilla [place] [address] [place] [address] Nurse Randy Urology Raz [address] [place] [address] 07/20/2023 10:45 AM EST Office Visit Hematology/Oncology [facility] [place] [address] [place] [address] Rasheed Maldonado MD [address] [place] [address] 08/10/2023 3:00 PM EST Office Visit Family Practice 65 [facility] [place] 293 [place] [address] Sami Stephens, 293 [place] [address] 08/30/2023 11:15 AM EST Office Visit Dermatology [facility] [address] [place] [address] Nik Vieira MD [address] [place], [place] [address] 08/31/2023 3:15 PM EST Procedure Only Urology, [facility] 132 [facility] [place] [address] Marbin Ivan MD [address] [address] [place] [address] 09/22/2023 1:15 PM EST Office Visit Hematology/Oncology [facility] [address] [place], [place] [address] Rasheed Maldonado MD [address] [place], [place] [address] 03/12/2024 1:10 PM EDT Office Visit Dermatology [facility] [place] 3[address] [place] [address] Natasha Nova PA-C 3228 [place] [address] 03/13/2024 1:30 PM EDT Office Visit Cardiology, [facility] 132 [facility] [place] [address] Angela Peter CRNP [address] [place] [address] [place] [phone] 05/17/2024 10:00 AM EDT Office Visit Sleep Disorders Ctr Raz [facility] [address] [place] [address] Kathrine Haile CRNP [address] [place] [address] Health Maintenance Due Date Last Done Comments [...] this encounter Medical Devices Implanted Type Area Fuel Retrofitting Technician Device Identifier Shelf Expiration Date Model / Serial / Lot Port Implant W/8f Poly Cath - [id number] Implanted:Qty: 1 on 05/12/2023 at [facility] CR BARD : PERIPHERAL VASCULAR [id number] 07/14/2024 [id number] / / [id number] documented as of this encounter Advance Directives [...] Advance Directives occurred with: Patient Care Teams Needle Grader Relationship Specialty Start Date End Date Sami Stephens DO 293 [place] [address] PCP - General Internal Medicine 01/08/22 documented as of this encounter
--- OUTSIDE RECORDS SUMMARY | 2023-09-12 16:22 | External Medical Summary | Summary of Care ---
Author Name Unknown Organization [facility] Address [address] [place] [address] Phone [phone] Care Team Providers Care Tongue And Groove Machine Feeder Name Role Phone Sami Stephens DO Primary Care Provider [phone] Reason for Visit * Reason Onset Date Comments Appointment 06/27/2023 Encounter Details Date Type Department Care Team (Late st Contact Info) Description 06/27/2023 Telephone Access Center, [place] 100 [address] [facility] *DO NOT REMOVE THIS DEPARTMENT* [place], [place] [id number] Services, Scheduling [address] [place] [address] Appointment Allergies Active Allergy Reactions Criticality Noted [...] Sulfamethoxazole-Tr imethoprim 800-160 MG Oral Tablet (Bactrim DS)Indications:[place] 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 He states that he will have them [...] 06/29/2023 2:00 PM EST Nurse Only Hematology/Oncology [facility] [address] [place] [address] Jordana Nurse Hem Onc [address] [place] [address] 06/30/2023 11:30 AM EST Nurse Only Urology, Leonid Padilla [place] [address] [place] [address] Nurse Randy Urology Raz [address] [place] [address] 07/20/2023 10:45 AM EST Office Visit Hematology/Oncology [facility] [place] [address] [place] [address] Rasheed Maldonado MD [address] [place] [address] 08/10/2023 3:00 PM EST Office Visit Family Practice 65 [facility] [place] 293 [facility] [place] [address] Sami Stephens, 293 [place] [address] 08/30/2023 11:15 AM EST Office Visit Dermatology [facility] [address] [place] [address] Nik Vieira MD [address] [place], [place] [address] 08/31/2023 3:15 PM EST Procedure Only Urology, [facility] 132 [place] [address] Marbin Ivan MD [address] [address] [place] [address] 09/22/2023 1:15 PM EST Office Visit Hematology/Oncology [facility] [address] [place], [place] [address] Rasheed Maldonado MD [address] [place], [place] [address] 03/12/2024 1:10 PM EDT Office Visit Dermatology [facility] [place] [address] [place] [address] Natasha Nova PA-C 3228 [place] [address] 03/13/2024 1:30 PM EDT Office Visit Cardiology, [facility] 132 [place] [address] Angela Peter CRNP [address] [place] [address] [place] [phone] 05/17/2024 10:00 AM EDT Office Visit Sleep Disorders Ctr Raz [facility] [address] [place] [address] Kathrine Haile CRNP [address] [place] [address] Health Maintenance Due Date Last Done Comments [...] this encounter Medical Devices Implanted Type Area Student Records Coordinator Device Identifier Shelf Expiration Date Model / Serial / Lot Port Implant W/8f Poly Cath - [id number] Implanted:Qty: 1 on 05/12/2023 at [facility] CR BARD : PERIPHERAL VASCULAR [id number] 07/14/2024 [id number] / / [id number] documented as of this encounter Advance Directives [...] Advance Directives occurred with: Patient Care Teams Tongue And Groove Machine Feeder Relationship Specialty Start Date End Date Sami Stephens DO 293 [place] [address] PCP - General Internal Medicine 01/08/22 documented as of this encounter
--- OUTSIDE RECORDS SUMMARY | 2023-09-12 16:22 | External Medical Summary | Summary of Care ---
Author Name Unknown Organization [facility] Address [address] [place] [address] Phone [phone] Care Team Providers Care Cattle Alley Worker Name Role Phone Venkat[place]elli Sami Blue DO Primary Care Provider [phone] Reason for Visit * Reason Comments Follow Up 3 month FBSE-MM, spo t on left forearm, has a rash on left inner thigh, itchy. Encounter Details Date Type Department Care Team (Late st Contact Info) Description 05/18/2023 1:50 PM EDT Office Visit Dermatology [facility] 3[address] [place] [address] Natasha Nova PA-C [address] [place] [address] Neoplasm of uncertain behavior of [...] (Moderna) 05/18/2022 Pneumococcal Conjugate Vacci ne, 20-valent ([id number]) 04/12/2022 Seasonal Influenza, Quadriva lent Hd (Fluzone [...] as of this encounter Progress Notes * Natasha Nova PA-C - 05/18/2023 1:51 PM EDT Nursing Notes: Yakelin Andres LPN 05/18/23 1339 Signed Patient identified by name and date. [...] . Dulaglutide 1.5 MG/0.5ML Subcutaneous Solution Pen-injector (Cinpost) INJECT 1.5MG UNDER THE SKINONCE WEEKLY 6 [...] benign appearing dome-shaped papules and macules. 3. [place] crusted scar L frontal scalp ASSESSMENT/PLAN: 1. [...] Description 06/30/2023 11:20 AM EST Laboratory Laboratory, [address] [place] [address] Pia Padilla [address] [place], [place] [address] [address] 06/30/2023 11:30 AM EST Nurse Only Urology, [facility] 132 [facility] [place] [address] Randy Nurse Urology Raz 132 [facility] [place] [address] 06/30/2023 1:00 PM EST Nurse Only Hematology/Oncology [place] [place] [address] [place], [place] [address] Park, Nurse Hem Onc [facility] 200 [place] [address] 07/01/2023 1:40 PM EST Office Visit Family Practice [facility] 293 [facility] [place] [address] Sami Stephens, DO 293 [facility] [place] [address] 07/20/2023 10:45 AM EST Office Visit Hematology/Oncology [facility] [address] [place], [place] [address] Rasheed Maldonado MD 200 [facility] [place] [address] 08/10/2023 3:00 PM EST Office Visit Family Practice [facility] 293 [facility] [place] [address] Sami Stephens, DO 293 [facility] [place] [address] 08/30/2023 11:15 AM EST Office Visit Dermatology [facility] [address] [place], [place] [address] Nik Vieira MD 200 [facility], [place] [address] 08/31/2023 3:15 PM EST Procedure Only Urology, [facility] 132 [place] [address] Marbin Ivan MD 27 [facility] [address] [place] [address] 09/22/2023 1:15 PM EST Office Visit Hematology/Oncology [facility] [address] [place], [place] [address] Rasheed Maldonado MD [address] [place] [address] 03/12/2024 1:10 PM EDT Office Visit Dermatology [facility] [place] [address] [place] [address] Natasha Nova PA-C 3[address] [place] [address] 03/13/2024 1:30 PM EDT Office Visit Cardiology, [facility] 132 [facility] [address] Angela Peter CRNP 400 [facility] [place] [phone] 05/17/2024 10:00 AM EDT Office Visit [facility] Disorders Ctr [facility] 132 [facility] [address] Kathrine Haile CRNP 132 [facility] [address] Health Maintenance Due Date Last Done Comments [...] encounter Medical Devices Implanted Type Area Group Home Counselor Device Identifier Shelf Expiration Date Model / Serial / Lot Port Implant W/8f Poly Cath - [id number] Implanted:Qty: 1 on 05/12/2023 at [facility] CR BARD : PERIPHERAL VASCULAR [id number] 07/14/2024 [id number] / / [id number] documented as of this encounter Procedures Procedure [...] Seborrheic keratosis 05/19/2023 2:05 PM EDT LAB[facility]ATORY [facility] [place] Clinical History See Order Comments 05/19/2023 2:05 PM EDT LABORATORY [facility] [place] Order Comments A. Brown variegated macule L dorsal forearm, r/o MM 05/19/2023 2:05 PM EDT LABORATORY [facility] [place] Gross Description A. Skin. Received in formalin with a container labeled with "Ralf Larson", "[id number]", "1945" and " left dorsal forearm". Received [...] Gross By: 05/19/2023 2:05 PM EDT LABORATORY [facility] [place] Sign Out Location Pathologist sign out performed at [facility] ([facility] [place] [place] [address]. 05/19/2023 2:05 PM EDT LABORATORY [facility] [place] Photographic images and diagrams represent medel findings in this case; they are not intended to replace a complete review of the final diagnostic report. The following statement applies to Flow Cytometry, Histology, In situ Hybridization Assays and Molecular Genetics. This test was developed and performed at [facility] and its performance characteristics determined by [facility] [email or web address]. It has not been cleared or approved [...] control reactions. 05/19/2023 2:05 PM EDT LABORATORY [facility] [place] Tissue Skin structure / Unknown 05/18/2023 2:19 PM EDT 05/18/2023 2:19 PM EDT Comment:A. Brown variegated macule L dorsal forearm, r/o MM Natasha Nova PA-C LAB PATHOLO [facility] ORDER[facility] LABORATORY [place] [address] [place] [address] * DERM IMAGE (SITE) (05/18/2023) 05/18/2023 Natasha Nova PA-C DIGITAL MICHELLE TOGRAPHY documented in this [...] Advance Directives occurred with: Patient Care Teams Cattle Alley Worker Relationship Specialty Start Date End Date Sami Stephens DO [address] [place] [address] PCP - General Internal Medicine 01/08/22 documented as of this encounter
--- OUTSIDE RECORDS SUMMARY | 2023-09-12 16:22 | External Medical Summary | Summary of Care ---
Author Name Unknown Organization [facility] Address [address] [place] [address] Phone [phone] Care Team Providers Care Parts Sales Advisor Name Role Phone Sami Stephens DO Primary Care Provider [phone] Reason for Visit * Reason Onset Date Comments Appointment 06/27/2023 Encounter Details Date Type Department Care Team (Late st Contact Info) Description 06/27/2023 Telephone Access Center, [place] [facility] [address] [facility] *DO NOT REMOVE THIS DEPARTMENT* [place], [place] [id number] Services, Scheduling [address] [place] [address] Appointment Allergies Active Allergy Reactions Criticality Noted [...] Sulfamethoxazole-Tr imethoprim 800-160 MG Oral Tablet (Bactrim DS)Indications:Outlook 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 He states that he will have [...] 06/29/2023 2:00 PM EST Nurse Only Hematology/Oncology [facility] [place] [address] [place] [address] Jordana Nurse Hem Onc [place] [address] [place] [place] [address] 06/30/2023 11:30 AM EST Nurse Only Urology, [facility] 132 [facility] [place] [address] [place] Nurse Urology [facility] [place] [address] 07/01/2023 1:40 PM EST Office Visit Family Practice [address] [facility] 293 [place] [phone] Sami Stephens, DO 293 [place] [address] 07/20/2023 10:45 AM EST Office Visit Hematology/Oncology [facility] [address] [place] [address] Rasheed Maldonado MD 200 [facility] [place] [address] 08/10/2023 3:00 PM EST Office Visit Family Practice 65 [facility] 293 [place] [address] Sami Stephens, DO 293 [place] [address] 08/30/2023 11:15 AM EST Office Visit Dermatology [facility] [address] [place] [address] Nik Vieira MD 200 [facility] [place] [address] 08/31/2023 3:15 PM EST Procedure Only Urology, [facility] 132 [facility] [place] [address] Marbin Ivan MD [address] [address] [place] [address] 09/22/2023 1:15 PM EST Office Visit Hematology/Oncology [facility] [address] [place] [address] Rasheed Maldonado MD [address] [place] [address] 03/12/2024 1:10 PM EDT Office Visit [facility] [place] [address] [place] [address] Natasha Nova PA-C [address] [place] [address] 03/13/2024 1:30 PM EDT Office Visit Cardiology, [facility] [address] Angela Peter CRNP [address] [place] [phone] 05/17/2024 10:00 AM EDT Office Visit Sleep Disorders Ctr [facility] [phone] Kathrine Haile CRNP [facility] [address] Health Maintenance Due Date Last Done Comments [...] this encounter Medical Devices Implanted Type Area Fiberglass Product Tester Device Identifier Shelf Expiration Date Model / Serial / Lot Port Implant W/8f Poly Cath - [id number] Implanted:Qty: 1 on 05/12/2023 at [facility] CR BARD : PERIPHERAL VASCULAR [id number] 07/14/2024 [id number] / / [id number] documented as of this encounter Advance Directives [...] Advance Directives occurred with: Patient Care Teams Parts Sales Advisor Relationship Specialty Start Date End Date Sami Stephens DO [address] [place] [address] PCP - General Internal Medicine 01/08/22 documented as of this encounter
[2023-09-12] MEDS ORDERED: ONDANSETRON INJ 2 MG/ML 2 ML VIAL IV PRN (16:23)
[2023-09-12] MEDS ORDERED: ACETAMINOPHEN 1,000 MG/100 ML VIAL IV PRN (16:23)
--- OUTSIDE RECORDS SUMMARY | 2023-09-12 16:23 | External Medical Summary | Summary of Care ---
Author Name Unknown Organization [facility] Address [address] [place] [address] Phone [phone] Care Team Providers Care Mass Spectroscopist Name Role Phone Sami Stephens DO Primary Care Provider [phone] Reason for Visit * Reason Onset Date Comments TRIAGE 06/27/2023 Encounter Details Date Type Department Care Team (Late st Contact Info) Description 06/27/2023 Telephone Urology, [facility] 132 [address] [facility] [place] [address] Services, Scheduling [address] [place] [address] TRIAGE Allergies Active Allergy Reactions Criticality Noted Date [...] Sulfamethoxazole-Tr imethoprim 800-160 MG Oral Tablet (Bactrim DS)Indications:Rainier 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 * Telephone Encounter - Veronica Colon LPN - 06/27/2023 1:43 PM EST Please contact patient to schedule TOV at the end of this week. Thurs or Fri. Please convert next appt to possible cystoscopy. Thank you Jeannie * Telephone Encounter - Marbin Ivan MD - 06/27/2023 1:30 PM EST I suspect the patient's constipation was the primary issue causing retention. His next visit can beswitched to a possible cysto, TOV is fine when recommended if bowels have normalized, should be taught CIC simultaneously in case he has difficulties in the future. Thanks, HM * Telephone Encounter - Veronica Colon LPN - 06/27/2023 11:[address] Ivan [facility] ED records scanned. Please review and advise when/if TOV should be scheduled. Patient's next appt with you is on 08/31/2023. Please advise if he should be seen sooner. Thank you Jeannie * Telephone Encounter - Lauren Gant OSA - 06/27/2023 10:55 AM EST Pt calling to set up an appt for TOV cath removal [place] [address] [place]. Pt was advised to follow up with Dr Ivans office and have cath removed by the end of the week 07/01. Please reach out to pt with appt. documented in this encounter Plan of Treatment Upcoming Encounters Date Type Department Care Team (Late st Contact Info) Description 06/29/2023 1:00 PM EST Laboratory [facility] [address] [place] [phone] [place], [facility] [address] [place], [place] [address] 06/29/2023 2:00 PM EST Nurse Only Hematology/Oncology [facility] [address] [place], [place] [address] [place], Nurse Hem Onc [facility] 200 [facility], [place] [address] 06/30/2023 11:30 AM EST Nurse Only Urology, [facility] 132 [place] [address] Nurse Randy Urology [facility] [place] [address] 07/20/2023 10:45 AM EST Office Visit Hematology/Oncology [facility] [address] [place], [place] [address] Rasheed Maldonado MD 200 [facility] [place], [place] [address] 08/10/2023 3:00 PM EST Office Visit Family Practice [address] [place] [address] 293 [place] [address] Sami Stephens, 293 [place] [address] 08/30/2023 11:15 AM EST Office Visit Dermatology [facility] [address] [place], [place] [address] Nik Vieira MD 200 [facility] [place], [place] [address] 08/31/2023 3:15 PM EST Procedure Only Urology, [facility] 132 [facility] [place] [address] Marbin Ivan MD [address] [place] [address] 09/22/2023 1:15 PM EST Office Visit Hematology/Oncology [facility] 200 [facility] [place] [address] Rasheed Maldonado MD 200 [facility] [place] [address] 03/12/2024 1:10 PM EDT Office Visit Dermatology [facility] [place] [address] [place] [address] Natasha Nova PA-C [address] [place] [address] 03/13/2024 1:30 PM EDT Office Visit Cardiology, [facility] 132 [facility] [place] [address] Angela Peter CRNP 400 [facility] [place] [phone] 05/17/2024 10:00 AM EDT Office Visit Sleep Disorders Ctr [facility] 132 [facility] [place] [phone] Kathrine Haile CRNP 132 [facility] [place] [address] Health Maintenance Due Date Last Done Comments [...] this encounter Medical Devices Implanted Type Area Practice Performance Manager Device Identifier Shelf Expiration Date Model / Serial / Lot Port Implant W/8f Poly Cath - [id number] Implanted:Qty: 1 on 05/12/2023 at [facility] CR BARD : PERIPHERAL VASCULAR [id number] 07/14/2024 [id number] / / [id number] documented as of this encounter Advance Directives [...] Advance Directives occurred with: Patient Care Teams Mass Spectroscopist Relationship Specialty Start Date End Date Sami Stephens DO [address] [place] [facility] [place] [address] PCP - General Internal Medicine 01/08/22 documented as of this encounter
--- NOTE | 2023-09-12 17:10 | Ultrasound Report ---
ULTRASOUND RIGHT UPPER QUADRANT ABDOMEN CLINICAL HISTORY: Right upper quadrant abdominal pain. COMPARISON STUDY: Abdominal CT dated 09/12/2023. TECHNIQUE: Real-time, grayscale, and color flow sonography of the right upper quadrant of the abdomen was performed. Images are reviewed in the transverse and longitudinal planes. FINDINGS: Liver: The liver is normal in size and echotexture. There is no intrahepatic biliary ductal dilatatio n. The main portal vein is patent. Gallbladder: The gallbladder is markedly distended measuring 13.8 cm in length. There are gallstones and biliary sludge. The gallbladder wall is thickened/edematous, measuring up to 6 mm. Trace perichol ecystic fluid is noted. A sonographic Helton's sign is reportedly present. The common bile duct measu res up to 0.5 cm in diameter. Pancreas: Not visualized due to overlying bowel gas. Right kidney: Survey images of the right kidney demonstrate normal size and echotexture. There is no hydronephrosis. Ascites: There is trace perihepatic fluid. IMPRESSION: Acute cholecystitis. Surgical assessment is advised. ACT 112: Negative or not required by law. Electronically signed by: David Gonzalez M.D. 09/12/2023 5:09 PM
--- NOTE | 2023-09-12 17:12 | Cardiology Consultation ---
Date of Consultation September 12, 2023 Assessment & Plan (1) Preoperative cardiovascular examination: (2) Aortic stenosis: Plan * Patient describes stable cardiac signs and symptoms * No suggestive of unstable angina, CHF, or unstable arrhythmia * Agree with IV potassium replacement * Given use of IV antibiotics will need to be vigilant of his intake and output to make sure that he does not become a fluid overloaded in the perioperative interval * Recommend attention to the fact that he does have moderate aortic stenosis with regards to the approach for his sedation. * No further cardiac testing felt to be indicated at this time. Will follow the patient perioperatively. History of Present Illness Attending Physician: Bessie Alexander MD History of Present Illness Ralf Larson 78-year-old male seen in cardiology consultation per the request of Dr Alexander for preoperative cardiac assessment. Patient presented via the emergency department today with complaints of 3 days of fever and abdominal discomfort. He had been seen by general surgery and is felt to have acute cholecystitis for which operative intervention is tentatively planned for dhruv holland. During my assessment in the emergency department, room B2, patient was sitting in the bedside chair accompanied by his spouse. He noted ongoing epigastric discomfort but was relatively comfortable. He notes a stable degree of chronic shortness of breath has improved since his hospital stay in the fall 2022 and he utilizes supplemental oxygen at home. He had most recently been seen in outpatient cardiology follow-up in July, at which time stable cardiac signs and symptoms were noted. He had been hospitalized at [facility] from 06/10/2023 until 06/15/2023 with acute hypoxic respirat ory failure which was felt to be possibly related to pneumonitis from Keytruda. Cardiac history is notable for moderate aortic stenosis, with stable findings noted on outpatient echocardiogram performed 06/07/2023 at which time the indices of aortic valve stenosis are relatively unchanged compared to April,. History otherwise notable for sinus bradycardia with first-degree AV block , frequent PACs and frequent PVCs noted on Zio Patch in 2021. Ongoing observation recommended at most recent follow up. Allergies Allergy/AdvReac Type Severity Reaction Status Date / Time pembrolizumab [From Keytruda] Allergy Severe SEE COMMENT Verified 09/12/23 13:47 aspartame Allergy Unknown Gastrointestinal Unverified 09/12/23 14:00 Upset Penicillins Allergy Unknown CAN'T Verified 09/12/23 13:47 REMEMBER Home Medications Medication Instructions Recorded Confirmed Type amlodipine 10 mg tablet 10 mg PO QAM 11/18/21 09/12/23 History aspirin 81 mg tablet,delayed 81 mg PO HS 11/18/21 09/12/23 History release hydrochlorothiazide 25 mg tablet 25 mg PO QAM 11/18/21 09/12/23 History losartan 100 mg tablet 100 mg PO QAM 11/18/21 09/12/23 History metoprolol tartrate 25 mg tablet 25 mg PO BID 06/10/23 09/12/23 History sertraline 50 mg tablet 50 mg PO HS 06/10/23 09/12/23 History vitamin B complex 1 tab PO DAILY 06/10/23 09/12/23 History cholecalciferol (vitamin D3) 125 125 mcg PO PM 06/26/23 09/12/23 History mcg (5,000 unit) tablet (Vitamin D3) sennosides 8.6 mg-docusate sodium 1 - 2 tab-cap (1 - 2 x 8.6-50 mg) 06/26/23 09/12/23 Rx 50 mg tablet (Senokot-S) PO BID PRN constipation #60 tabs atorvastatin 20 mg tablet 20 mg PO DAILY 09/12/23 09/12/23 History mirabegron 50 mg tablet,extended 50 mg PO QAM 09/12/23 09/12/23 History release 24 hr (Myrbetriq) potassium chloride 20 mEq See Rx Instructions .Route .COMPLEX 09/12/23 09/12/23 History tablet,extended release(part/cryst) Patient History Medical History Prediabetes A1c on 05/27/23 - 6.3 Gouty arthritis 1st degree AV block BPH loc w urin obs/LUTS Moderate to severe aortic stenosis Impaired renal function History of colon polyps "MINOR" TO F/U IN 5-10 YRS Benign essential tremor "BENIGN TREMOR" MOSTLY HANDS SOB (shortness of breath) on exertion NOT WITH STAIRS, ON A HILL...WILL STOP AND RESOLVES WITH REST; ongoing x yrs without change or worsening Sleep apnea CPAP History of abnormal electrocardiogram 2-3 YR AGO, TESTING DONE...DX HEART MURMUR Hyperlipidemia Enlarged prostate HTN (hypertension) Surgical History S/P tonsillectomy History of cataract surgery History of colonoscopy History of tonsillectomy History of detached retina repair RIGHT Family History Father Family history of diabetes mellitus Heart disease Grandfather (Maternal) Heart disease Social History Smoking Status: Never smoker Second Hand Exposure: No; Do You Dip or Chew Tobacco: No (HX IN COLLEGE 50 YR AGO); Hx Alcohol Use: Yes Alcohol type: wine Hx Substance Use: No Preferred Language: Malay Communication Ability: Effective Communication Ability Comment: PT [place] Gripper Machine Operator Required: No Beliefs That Will Affect Care: None and Hindu Hindu Beliefs: GNOSTICIST Current Living Situation: Spouse and Family Current Living Situation Comment: AND SON COMES HOME FOR LONG WEEKENDS EVERY OTHER WEEK Feels Safe at Home: Yes Assistive Devices: CPAP Review of Systems Review of Systems: All systems reviewed & are unremarkable except as noted in HPI & below Physical Exam Constitutional: WD/WN, vitals as above Respiratory: normal respiratory effort, lungs clear to auscultation Cardiovascular: Rate/Rhythm: regular rate and regular rhythm Heart Sounds: + murmur (1/6 systolic murmur) Extremities: no edema Chest (Breasts): Additional Comments: Right sided chemotherapy port in place without erythema Gastrointestinal (Abdomen): Mild epigastric discomfort on palpation Neurologic: PERRL, EOMI, accommodation nl, no face palsy, no dysarthria Results & Data Vital Signs (Past 12 Hours) Vital Signs Temp Pulse Resp BP Pulse Ox O2 Del Method 09/12/23 14:00 52 L 09/12/23 12:30 94 Room Air 09/12/23 12:21 18 94 Room Air 09/12/23 11:30 36.8 C 62 18 163/87 H 95 Room Air Laboratory Results Cardiac Enzymes 09/12/23 09/12/23 Range/Units 12:14 14:16 AST 14 (13-39) U/L Troponin I High Sens 22.0 H 20.5 H (0-20) pg/ml Coagulation 09/12/23 Range/Units 12:56 PT 12.4 H (9.0-12.0) Seconds CBC 09/12/23 Range/Units 12:14 WBC 19.39 H (4.8-10.8) K/ul RBC 4.09 L (4.70-6.10) M/uL Hgb 12.6 L (14.0-18.0) g/dl Hct 36.2 L (42.0-52.0) % Plt Count 157 (130-400) K/uL Neut # (Auto) 16.12 H (1.40-6.50) K/uL Lymph # (Auto) 0.98 L (1.20-3.40) K/uL Esmeralda # (Auto) 2.09 H (0.11-0.59) K/uL Eos # (Auto) 0.02 (0.00-0.50) K/uL Baso # (Auto) 0.04 (0.00-0.20) K/uL Comprehensive Metabolic Panel 09/12/23 Range/Units 12:14 Sodium 134 L (136-145) mmol/L Potassium 3.1 L (3.5-5.1) mmol/L Chloride 96 L (98-107) mmol/L Carbon Dioxide 28 (21-32) mmol/L BUN 15 (6-23) mg/dl Creatinine 0.80 (0.6-1.4) mg/dl Glucose 150 H (70-99(Fasting)) mg/dl Calcium 9.9 (8.6-10.3) mg/dl AST 14 (13-39) U/L ALT 12 (7-52) U/L Alkaline Phosphatase 56 (34-104) U/L Total Protein 6.9 (6.0-8.3) gm/dl Albumin 3.6 (3.4-5.0) gm/dl Intake and Output 09/12/23 09/12/23 09/12/23 06:59 14:59 22:59 Intake Total 500 / 600 100 / 600 Balance 500 / 600 100 / 600 Intake: IV 500 / 600 100 / 600 Sodium Chloride 0.9% 500 ml @ 500 / 500 999 mls/hr IV .Q31M ONE Rx#: [id number] metroNIDAZOLE 500 mg In 100 ml 100 / 100 @ 100 mls/hr IV NOW STA Rx#: [id number] Other: Weight 139.4 kg Patient Weight 09/13/23 06:59 Weight 139.4 kg Diagnostic Findings EKG performed 09/12/2023 at 11:49 AM revealed sinus rhythm at 66 bpm with first- degree AV block, observed. Nonspecific T wave flattening. Echocardiogram: 06/07/23 The examination is adequate to evaluate the referral indication. Images are technically limited secondary to body habitus and upright position The left ventricular cavity size is normal. The LV wall thickness is moderately increased (concentric). The left ventricular wall motion is normal. The qualitative LV ejection fraction is 65-69% (normal). The left ventricular diastolic function is mildly abnormal (grade I). The aortic valve is moderately calcified. Moderate to borderline severe aortic valve stenosis is present. There is mild aortic insufficiency The aortic root and proximal ascending aorta are normal sized. There is moderate mitral annular calcification. Compared to prior study of May 04, 2022, there is no significant change. Summary of CT of the abdomen pelvis performed today 09/12/2023: 1. Above findings are highly suspicious for acute cholecystitis. Surgical consultation recommended. 2. 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 3. Trace pelvic free fluid. 4. Mild bladder wall thickening. This could be due to underdistention. Recommend correlation with urinalysis. (2) Aortic stenosis Cardiac valve disease etiology: nonrheumatic Qualified Code(s): I35.0 - Nonrheumatic aortic (valve) stenosis
[2023-09-12] MEDS: metroNIDAZOLE 500 MG/100 ML BAG IV SCH (17:54)
[2023-09-12] MEDS: SODIUM CHLORIDE 0.9% 1,000 ML IV SCH (17:56)
[2023-09-12] MEDS: CIPROFLOXACIN / D5W 400 MG/200 ML BAG IV SCH (18:49)
[2023-09-12] MEDS: POTASSIUM CHLORIDE / WTR 10 MEQ/100 ML PLCT IV SCH (20:55)
[2023-09-12] MEDS: HYDROmorphone INJ 0.5 MG/0.5 ML SYR IV PRN (20:55)
--- OUTSIDE RECORDS SUMMARY | 2023-09-13 00:42 | External Medical Summary | Summary of Care ---
Author Name Unknown Organization [facility] Address [address] [place] [address] Phone [phone] Care Team Providers Care Shearing Machine Operator Name Role Phone Sami Stephens DO Primary Care Provider [phone] Reason for Visit * Reason Comments Outpatient Testing Encounter Details Date Type Department Care Team (Late st Contact Info) Description 09/12/2023 11:20 AM EST Laboratory Laboratory, [facility] [place] [id number] [facility] [address] [place] [address] [employer] Other*[id number]; Potassium serum decreased; Upper respiratory tract infection, unspecified type; Nausea and vomiting, unspecified vomiting type; Nausea; Abdominal pain, generalized; Fever Allergies Active Allergy Reactions Criticality Noted Date Comments Aspartame 08/10/2023 Pembrolizumab 07/01/2023 Penicillins 03/22/2023 Patient states had a reaction many years ago - that it was the "horse serum kind." documented as of this encounter (statuses as of 09/12/2023) Medications Medication Sig Dispensed Refills Start Date [...] the morning. 0 07/01/2023 Active Saline Nasal Metamora 0.65 % Nasal Solution ([place])Indications :Nasal drainage Administer 1 [place]am[place] into nostril every 6 hours as needed [...] as of this encounter (statuses as of 09/12/2023) Active Problems Problem Noted Date Diagnosed Date [...] as of this encounter (statuses as of 09/12/2023) Resolved Problems Problem Noted Date Diagnosed Date Resolved Date Body mass index (BMI) of 45. 0 to 49.9 in adult 01/25/2022 07/28/2023 Overview: Per Obesity protocol documented as of this encounter (statuses as of 09/12/2023) Immunizations Name Administration Dates Next Due COVID-19 mRNA, LNP-s, No Pre serve, 2-Dose Series (Moderna) 09/23/2020,08/29/2020 COVID-19, MRNA-LNP, 23-24, P F, 30 MCG/0.3 mL, 12 YRS AND ABOVE, IM (PFIZER-Comirnaty) 08/25/2023 COVID-19, mRNA, LNP-s, PF, B ooster, 100mcg/0.5mg (Moderna) 02/02/2022,06/08/2021 Covid-19, Mrna, Lnp-s, Pf, B ivalent, 50 Mcg, IM, 12 yrs and above (Moderna) 05/18/2022 Pneumococcal Conjugate Vacci ne, 20-valent ([id number]) 04/12/2022 Seasonal Influenza, Quadriva lent Hd (Fluzone [...] Care Team (Late st Contact Info) Description 09/12/2023 11:00 AM EST Office Visit Family Practice 65 [facility] [address] [place] [address] Sami Stephens, 293 [place] [address] 09/20/2023 11:15 AM EST Office Visit Dermatology [facility] [address] [place] [address] Nik Vieira MD [address] [place] [address] 09/22/2023 12:40 PM EST Laboratory Laboratory [facility] [address] [place] [id number] Pia Silveira [facility] [address] [place] [address] 09/22/2023 1:15 PM EST Office Visit Hematology/Oncology [facility] 200 [facility] [place], [place] [address] Rasheed Maldonado MD 200 [facility] [place], [place] [address] 10/14/2023 11:45 AM EST Immunization/Injecti on Hematology/Oncology Treatment, [place] 200 [place] [address] Nurse, Med 4 200 [facility] [place], [place] [address] 10/18/2023 10:00 AM EST Nurse Only Ancillary 65 [facility] [address] [place] [address] College, Nurse Annual Wellness Visit [address] [address] 11/29/2023 3:00 PM EDT Office Visit Family Practice 65 [facility] [address] [place] [address] Sami Stephens, 293 [place] [address] 12/06/2023 8:45 AM EDT Office Visit Hematology/Oncology [facility] 200 [facility] [place], [place] [address] Rasheed Maldonado MD 200 [facility] [place], [place] [address] 12/06/2023 2:15 PM EDT Office Visit Urology, [facility] 132 [facility] [place] [address] Marbin Ivan MD [address] [address] [place] [address] 12/12/2023 9:00 AM EDT Office Visit Ophthalmology, [facility] 132 [facility] [place] [address] Ganesh Perez, DO [address] [place] [address] 12/29/2023 10:00 AM EDT Office Visit [facility]ermatology [facility] [address] [place], [place] [address] Nik Vieira MD [address] [place], [place] [address] 03/12/2024 1:10 PM EDT Office Visit Dermatology [facility] [place] [address] [place] [address] Natasha Nova PA-C [address] [place] [address] 03/13/2024 1:30 PM EDT Office Visit Cardiology, [facility] 132 [place] [address] Angela Peter CRNP [address] [place] [address] 05/17/2024 10:00 AM EDT Office Visit Sleep Disorders [facility] [place] [phone] Kathrine Haile CRNP 132 [facility] [place] [address] Pending Results Name Type Priority Associated Diagnoses Date /Time MYCODE SUBSEQUENT ADULT Lab Routine [employer] Other*[id number] 09/12/2023 9:58 AM EST COMPREHENSIVE METABOLIC PANEL Lab STAT Nausea Abdominal pain, generalized Fever 09/12/2023 9:58 AM EST LIPASE Lab STAT Nausea Abdominal pain, generalized Fever 09/12/2023 9:58 AM EST MYCODE SST1 Lab Routine [employer] Other*[id number] 09/12/2023 9:58 AM EST MYCODE SST2 Lab Routine [employer] Other*[id number] 09/12/2023 9:58 AM EST Health Maintenance Due Date Last [...] this encounter Medical Devices Implanted Type Area Thermoplastic Technician Device Identifier Shelf Expiration Date Model / Serial / Lot Port Implant W/8f Poly Cath - [id number] Implanted:Qty: 1 on 05/12/2023 at [facility] BARD : PERIPHERAL VASCULAR [id number] 07/14/2024 [id number] / / [id number] documented as of this encounter Procedures Procedure Name Priority Date/Time Associated Diagnosis Comments DIFFERENTIAL, AUTOMATED STAT 09/12/2023 9:58 AM EST Nausea Abdominal pain, generalized Fever CBC STAT 09/12/2023 9:58 AM EST Nausea Abdominal pain, generalized Fever CBC STAT 09/12/2023 9:58 AM EST Nausea Abdominal pain, generalized Fever documented in this encounter Results * (ABNORMAL) DIFFERENTIAL, AUTOMATED (09/12/2023 9:58 AM EST) WBC 19.10(H) 4.00 - 10.80 K/uL 09/12/2023 10:06 AM EST [facility] Neutrophils % 84.6(H) 40.0 - 75.0 % 09/12/2023 10:06 AM EST [facility] Lymphocytes % 6.2(L) 18.0 - 42.0 % 09/12/2023 10:06 AM EST [facility] Monocytes % 8.9 1.0 - 11.0 % 09/12/2023 10:06 AM EST [facility] Eosinophils % 0.1 0.0 - 6.0 % 09/12/2023 10:06 AM EST [facility] Basophils % 0.2 0.0 - 2.0 % 09/12/2023 10:06 AM EST [facility] Absolute Neutrophils 16.17(H) 1.80 - 7.70 K/uL 09/12/2023 10:06 AM EST [facility] Absolute Lymphocytes 1.18 1.00 - 4.80 K/ul 09/12/2023 10:06 AM EST [facility] Absolute Monocytes 1.70(H) 0.00 - 1.10 K/uL 09/12/2023 10:06 AM EST [facility] Absolute Eosinophils 0.02 0.00 - 0.70 K/uL 09/12/2023 10:06 AM EST [facility] Absolute Basophils 0.03 0.00 - 0.20 K/uL 09/12/2023 10:06 AM EST [facility] Blood Venous blood specimen / Unknown Venipuncture / Unknown 09/12/2023 9:58 AM EST 09/12/2023 9:58 AM EST Sami Stephens DO LAB BLOOD ORDERABLES [facility] [address] [place] [address] * (ABNORMAL) CBC (09/12/2023 9:58 AM EST) WBC 19.10(H) 4.00 - 10.80 K/uL 09/12/2023 10:06 AM EST [facility] RBC 4.34 4.50 - 5.25 M/uL 09/12/2023 10:06 AM EST [facility] HGB 13.5(L) 14.0 - 16.8 g/dL 09/12/2023 10:06 AM EST [facility] HCT 40.5 40.0 - 48.4 % 09/12/2023 10:06 AM EST [facility] MCV 93.3 82.0 - 99.5 fL 09/12/2023 10:06 AM EST [facility] MCH 31.1 27.0 - 34.0 pg 09/12/2023 10:06 AM EST [facility] MCHC 33.3 32.0 - 36.0 g/dL 09/12/2023 10:06 AM EST [facility] RDW 14.4 11.5 - 15.5 % 09/12/2023 10:06 AM EST [facility] PLT 160 140 - 400 K/uL 09/12/2023 10:06 AM EST [facility] MPV 10.0 6.6 - 11.1 fL 09/12/2023 10:06 AM EST [facility] Blood Venous blood specimen / Unknown Venipuncture / Unknown 09/12/2023 9:58 AM EST 09/12/2023 9:58 AM EST Sami Stephens DO LAB BLOOD ORDERABLES [facility] [place] [facility] [place] [address] documented in this encounter Visit Diagnoses Diagnosis [employer] Other*[id number] Potassium serum decreased Hypopotassemia Upper respiratory tract infection, unspecified type Nausea and vomiting, unspecified vomiting type Nausea Nausea alone Abdominal pain, generalized Fever Fever, unspecified documented in this encounter Advance Directives [...] Advance Directives occurred with: Patient Care Teams Shearing Machine Operator Relationship Specialty Start Date End Date Sami Stephens DO [address] [facility] [place] [address] PCP - General Internal Medicine 01/08/22 documented as of this encounter
[2023-09-13 06:37] LABS: Basophils # (auto) 0.02 K/uL (0.00-0.20); Basophils % (auto) 0.1 %; Hematocrit (blood only) 36.5 % (42.0-52.0); Hemoglobin 12.5 g/dl (14.0-18.0); Immature Granulocytes # (auto) 0.22 K/uL (0.01-0.20); Immature Granulocytes % (auto) 1.1 %; Lymphocytes # (auto) 0.88 K/uL (1.20-3.40); Lymphocytes % (auto) 4.3 %; Mean Corpuscular Hemoglobin 30.8 pg (25.0-34.0); Mean Corpuscular Hgb Conc 34.2 g/dL (32.0-36.0); Mean Corpuscular Volume 89.9 fL (80.0-100.0); Mean Platelet Volume 10.1 fL (9.4-12.4); Monocytes # (auto) 2.37 K/uL (0.11-0.59); Monocytes % (auto) 11.5 %; Platelet Count 161 K/uL (130-400); RDW Coefficient of Variation 14.2 % (11.5-14.5); RDW Standard Deviation 46.8 fL (36.4-46.3); Red Blood Count 4.06 M/uL (4.70-6.10); White Blood Count 20.69 K/ul (4.8-10.8)
[2023-09-13 07:03] LABS: Albumin Globulin Ratio 1.3 (0.9-2); Albumin Level 3.4 gm/dl (3.4-5.0); BUN Creatinine Ratio 17.3 (10-20); Bilirubin,Total 0.9 mg/dl (0.2-1.0); Calcium 9.5 mg/dl (8.6-10.3); Est GFR (African American) 100.1 ml/min; Est GFR (Non-African American) 86.3 ml/min; Globulin 2.7 gm/dl (2.5-4.0); Magnesium 1.7 mg/dl (1.7-2.4); Potassium 3.7 mmol/L (3.5-5.1); Total Protein 6.1 gm/dl (6.0-8.3)
[2023-09-13 08:15] LABS: Estimated Average Glucose 123 mg/dl; Hemoglobin A1C 5.9 % (4.5-5.6)
--- NOTE | 2023-09-13 12:06 | History & Physical Bridge Note ---
Date of Service September 13, 2023 History & Physical Bridge Note I have examined the patient, reviewed the History & Physical and in the interval since the performance of the History & Physical I have noted the following changes of clinical significance: no changes noted
--- NOTE | 2023-09-13 12:57 | Hospitalist Progress Note ---
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 Acute Cholecystitis Pt presenting with 3 days of N/V and RUQ abdominal pain Notes fevers and chills at home Was seen by pcp today who recommended following up in the ED Has a leukocytosis at baseline but significantly more elevated on admission at 19K T bili elevated, other liver enzymes wnl CT abd/pelvis concerning for acute cholecystitis and a few stones in the gallbladder Gallbladder US concerning for acute cholecystitis Blood Cx x2 NGTD NPO until surgery, IV pain meds, very cautious fluids IV Cipro and Flagyl Consult General Surgery- appreciate recs -s/p cholecystectomy on 09/13 EKG with sinus rhythm with occasional PVCs, hs trop elevated at 22-->20, repeat echo pending, pt with known mod-severe Hx of aortic stenosis, cardiology consult placed for surgical optimization/clearance. Pt is s/p TURP aborted in May 2022 due to bradycardia. Appreciate recs Cardiomegaly Trop Elevation hs trop elevated at 22-->20 EKG with sinus rhythm with occasional PVCs Repeat Echo with EF 60-65%, moderate aortic stenosis Chest imaging noting cardiomegaly Doubt ACS Chronic Leukocytosis Was on high dose prednisone 80mg daily from May 29 to mid Jul 2023 Likely chronically elevated in that setting with an acute infectious component Continue with IV antibiotics as noted above Consider Hematology consult Hypokalemia Replete as needed Hyponatremia Minimally decreased at 134 Continue to monitor at this time Hyperglycemia Glucose levels elevated at 150 Prediabetic with Hgba1c of 5.9 Continue to monitor levels once pt resumes a diet Abdominal Aneurysm Iliac Artery aneurysm AAA noted on imaging, 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 Was on keytruda, had immune mediated hepatitis and rhabdomyolysis, was on high dose prednisone 80mg taper from May 29 to mid Jul 2023 BCC, left calf- per Derm, pt notified on 08/30, Derm follow up HTN- on amlodipine, losartan, hctz, metoprolol HLD- on statin Hx of BPH, s/p TURP aborted in 2021 due to bradycardia- currently only on mybetriq Mood Disorder- on sertraline Vit D def- on supplements CODE STATUS: Full code per discussion with pt Diet: Clear liquids post-op DVT prophylaxis: Heparin SQ post-op Dispo: Med/Surg with tele, pt requesting bariatric bed Admission and Anticipated Discharge Date Admission Date: September 12, 2023 Physical Exam Physical Exam: General: Alert, oriented. No acute distress Skin: Noted scar left side of taoist/scalp Psych: Appropriate mood and affect Neuro: Hearing loss. Otherwise no gross deficits HEENT: NC/AT Chest: Nontender to palpation. CV: RRR, + murmur appreciated Resp: Breath sounds clear bilaterally, no increased effort of breathing. Abdomen: Soft, tender in RUQ, nondistended. No guarding. Extremities: +++ edema in lower extremities bilaterally. Results & Data Results & Data Vital Signs (Past 12 Hours) Vital Signs Temp Pulse Pulse Resp BP Pulse Ox O2 Del Method 09/13/23 12:30 Nasal Cannula 09/13/23 11:09 36.9 C 75 16 153/72 H 93 Nasal Cannula 09/13/23 06:26 81 09/13/23 02:52 74 20 93 09/13/23 02:12 37.3 C 83 18 168/93 H 92 Nasal Cannula O2 Flow Rate 09/13/23 12:30 3 09/13/23 11:09 3 09/13/23 06:26 09/13/23 02:52 3 09/13/23 02:12 3 (5) Aortic stenosis Cardiac valve disease etiology: nonrheumatic Qualified Code(s): I35.0 - Nonrheumatic aortic (valve) stenosis
--- NOTE | 2023-09-13 13:46 | Cardiology Progress Note ---
Date of Service September 13, 2023 Assessment & Plan (1) Aortic stenosis: Plan - Patient is doing well from a cardiac perspective today. Offers no cardiac questions or concerns. -NPO in anticipation of surgery today. -Review of telemetry shows no acute events, patient is euvolemic on physical exam. -As discussed yesterday, given his moderate aortic stenosis it is prudent to be monitoring his fluid status intraop and post operatively. -Potassium levels have improved. Goal serum K of 4.0 and serum magnesium of 2.0. -No further cardiac testing is indicated at this time. -We will continue to follow perioperatively. Case has been discussed with Dr. Rios. Further recommendations regarding plan of care as per his assessment. I spent a total of 30 minutes on the date of service in preparation, delivery, documentation of the care provided to the patient excluding any time spent in the performance of separately billed services. OLEG Stringer [facility] Cardiology [facility] Admission and Anticipated Discharge Date Admission Date: September 12, 2023 Supervising Physician Co-Signing Physician Notes Attending attestation: I have reviewed the advanced practitioner's documentation, and agree with, and take responsibility for the plan of care. Subjective: Patient seen by the undersigned in the postanesthesia care unit after having had laparoscopic cholecystectomy, 4:30 PM at the time my assessment. Patient recovering well from anesthesia, receiving inhaled bronchodilator therapy and supplemental oxygen. Blood pressure stable Exam: Cardiovascular: Regular rhythm, 1/6 systolic murmur Data: Leukocytosis of 20,000 noted on this morning's labs Blood cultures remain negative thus far Echocardiogram performed today with stable findings of moderate aortic stenosis, preserved LVEF Impression/ Plan: -No changes in treatment plan from a cardiology perspective at present. I spent a total of 20 minutes coordinating, documenting, and providing care for this patient excluding time spent in the performance of separately billed services or time spent by another provider. Federico Rios DO Subjective 09/13/23: Patient seen and examined in follow up. He is resting in bed, NPO in anticipation for surgery today. Denies any chest pain, pressure, palpitations, no shortness of breath, PND, pre- syncope, syncope or edema. Review of telemetry demonstrates SR with PVCs and PAC's, occasional Bigeminy 70- 70's. No acute events overnight. Notes, labs, vitals and diagnostics reviewed. Review of Systems Review of Systems: All systems reviewed & are unremarkable except as noted in HPI & below Physical Exam Constitutional: well developed, well nourished and + obese ENMT: Throat: uvula midline and + posterior oropharynx abnormality Neck: normal visual inspection and trachea midline Respiratory: normal respiratory effort, lungs clear to auscultation Cardiovascular: Rate/Rhythm: regular rate and regular rhythm Heart Sounds: normal S1, normal S2 and + murmur Vessels: no JVD Extremities: no edema Skin: no rashes, warm and dry Psychiatric: A+Ox3, euthymic affect Results & Data Vital Signs (Past 12 Hours) Vital Signs Temp Pulse Pulse Resp BP Pulse Ox O2 Del Method 09/13/23 12:30 Nasal Cannula 09/13/23 11:09 36.9 C 75 16 153/72 H 93 Nasal Cannula 09/13/23 06:26 81 09/13/23 02:52 74 20 93 09/13/23 02:12 37.3 C 83 18 168/93 H 92 Nasal Cannula O2 Flow Rate 09/13/23 12:30 3 09/13/23 11:09 3 09/13/23 06:26 09/13/23 02:52 3 09/13/23 02:12 3 Laboratory Results Cardiac Enzymes 09/12/23 09/13/23 Range/Units 14:16 05:41 AST 16 (13-39) U/L Troponin I High Sens 20.5 H (0-20) pg/ml CBC 09/13/23 Range/Units 05:41 WBC 20.69 H (4.8-10.8) K/ul RBC 4.06 L (4.70-6.10) M/uL Hgb 12.5 L (14.0-18.0) g/dl Hct 36.5 L (42.0-52.0) % Plt Count 161 (130-400) K/uL Neut # (Auto) 17.20 H (1.40-6.50) K/uL Lymph # (Auto) 0.88 L (1.20-3.40) K/uL [place] # (Auto) 2.37 H (0.11-0.59) K/uL Eos # (Auto) 0.00 (0.00-0.50) K/uL Baso # (Auto) 0.02 (0.00-0.20) K/uL Comprehensive Metabolic Panel 09/13/23 Range/Units 05:41 Sodium 134 L (136-145) mmol/L Potassium 3.7 (3.5-5.1) mmol/L Chloride 99 (98-107) mmol/L Carbon Dioxide 28 (21-32) mmol/L BUN 14 (6-23) mg/dl Creatinine 0.81 (0.6-1.4) mg/dl Glucose 156 H (70-99(Fasting)) mg/dl Calcium 9.5 (8.6-10.3) mg/dl AST 16 (13-39) U/L ALT 10 (7-52) U/L Alkaline Phosphatase 53 (34-104) U/L Total Protein 6.1 (6.0-8.3) gm/dl Albumin 3.4 (3.4-5.0) gm/dl Intake and Output 09/12/23 09/13/23 09/13/23 22:59 06:59 14:59 Intake Total 500 / 1400 400 / 1400 1283.5 / 1283.5 Balance 500 / 1400 400 / 1400 1283.5 / 1283.5 Intake: IV 500 / 1400 400 / 1400 1283.5 / 1283.5 Ciprofloxacin / D5w 400 mg In 200 / 200 200 / 200 200 ml @ 100 mls/hr IV Q12H ODIN Rx#:[id number] Potassium Chloride / Wtr 10 meq 100 / 400 300 / 400 In 100 ml @ 100 mls/hr IV Q1H ODIN Rx#:[id number] Sodium Chloride 0.9% 1,000 ml @ 983.5 / 983.5 70 mls/hr IV .[id number] ODIN Rx#: [id number] metroNIDAZOLE 500 mg In 100 ml 200 / 300 100 / 300 100 / 100 @ 100 mls/hr IV Q8H ODIN Rx#: [id number] Other: Other Intake Source npo # Unmeasured Voids 1 Weight 138.8 kg Weight Measurement Method Standing Scale (1) Aortic stenosis Cardiac valve disease etiology: nonrheumatic Qualified Code(s): I35.0 - Nonrheumatic aortic (valve) stenosis
[2023-09-13] MEDS ORDERED: PROPOFOL IV EMULSION 10 MG/ML 20 ML VIAL IV ONE (14:35)
[2023-09-13] MEDS ORDERED: fentaNYL citrate PF 100 MCG/2 ML VIAL ONE (14:35)
[2023-09-13] MEDS ORDERED: LIDOCAINE 2% 2 ML VIAL/AMP(20MG/ML) INFIL ONE (14:35)
[2023-09-13] MEDS ORDERED: ROCURONIUM BROMIDE 10 MG/ML 5 ML VIAL IV ONE (14:35)
[2023-09-13] MEDS ORDERED: MIDAZOLAM HCL 1 MG/ML 2ML VIAL ONE (14:36)
--- NOTE | 2023-09-13 14:51 | Anesthesiology Consultation ---
Date of Service September 13, 2023 Assessment & Plan Chart Review Chart Review: Acceptable Risk for Surgery and Patient NOT seen in Pre Admission Testing Consults Requested none ASA ASA4 Proposed Anesthesia Anesthesia Type: General Risk / Benefits Reviewed With: PT / POA / Parent / Guardian, Accepts Plan and Informed Consent Obtained History Surgery Operation Date: 09/13/23 07:00 Proposed Procedures p Laparoscopic Cholecystectomy - Mingo Kinney MD Height/Weight Height: 6 ft Weight: 138.8 kg Allergies Allergy/AdvReac Type Severity Reaction Status Date / Time pembrolizumab [From [facility]] Allergy Severe SEE COMMENT Verified 09/12/23 13:47 aspartame Allergy Unknown Gastrointestinal Unverified 09/12/23 14:00 Upset Penicillins Allergy Unknown CAN'T Verified 09/12/23 13:47 REMEMBER Medications Home Medications Medication Instructions Recorded Confirmed Last Taken amlodipine 10 mg tablet 10 mg PO QAM 11/18/21 09/12/23 09/12/23 aspirin 81 mg tablet,delayed 81 mg PO HS 11/18/21 09/12/23 09/11/23 release hydrochlorothiazide 25 mg tablet 25 mg PO QAM 11/18/21 09/12/23 09/12/23 losartan 100 mg tablet 100 mg PO QA 11/18/21 09/12/23 09/12/23 metoprolol tartrate 25 mg tablet 25 mg PO BID 06/10/23 09/12/23 09/12/23 sertraline 50 mg tablet 50 mg PO 06/10/23 09/12/23 09/11/23 vitamin B complex 1 tab PO DAILY 06/10/23 09/12/23 09/12/23 cholecalciferol (vitamin D3) 125 125 mcg PO PM 06/26/23 09/12/23 09/11/23 mcg (5,000 unit) tablet (Vitamin D3) sennosides 8.6 mg-docusate sodium 1 - 2 tab-cap (1 - 2 x 8.6-50 mg) 06/26/23 09/12/23 Unknown 50 mg tablet (Senokot-S) PO BID PRN constipation #60 tabs atorvastatin 20 mg tablet 20 mg PO DAILY 09/12/23 09/12/23 Unknown mirabegron 50 mg tablet,extended 50 mg PO QAM 09/12/23 09/12/23 Unknown release 24 hr (Myrbetriq) potassium chloride 20 mEq See Rx Instructions .Route .COMPLEX 09/12/23 09/12/23 Unknown tablet,extended release(part/cryst) Active Medications Generic Name Dose Route Start Last Admin Trade Name Freq PRN Reason Stop Dose Admin Hydromorphone HCl 0.5 mg 09/12/23 16:23 09/13/23 10:14 Hydromorphone Inj 0.5 Mg/0.5 Ml Syr IV 09/26/23 16:22 0.5 mg Q4H PRN Administration Mod-Sev Pain (Scale 4-10) Ciprofloxacin 400 mg in 200 mls @ 100 mls/hr 09/12/23 16:30 09/13/23 07:53 Cipro / D5w IV 09/22/23 16:29 Infused Q12H ODIN Infusion Protocol Metronidazole 500 mg in 100 mls @ 100 mls/hr 09/12/23 16:30 09/13/23 10:03 Flagyl IV 09/22/23 16:29 Infused Q8H ODIN Infusion Protocol NPO Date Last Intake of Fluids: 09/11/23 Time Last Intake of Fluids: 18:00 Date Last Intake of Solids: 09/12/23 Time Last Intake of Solids: 20:00 Past Medical History Medical History Prediabetes A1c on 05/27/23 - 6.3 Gouty arthritis 1st degree AV block BPH loc w urin obs/LUTS Moderate to severe aortic stenosis Impaired renal function History of colon polyps "MINOR" TO F/U IN 5-10 YRS Benign essential tremor "BENIGN TREMOR" MOSTLY HANDS SOB (shortness of breath) on exertion NOT WITH STAIRS, ON A HILL...WILL STOP AND RESOLVES WITH REST; ongoing x yrs without change or worsening Sleep apnea CPAP History of abnormal electrocardiogram 2-3 YR AGO, TESTING DONE...DX HEART MURMUR Hyperlipidemia Enlarged prostate HTN (hypertension) Exercise / Class Metabolic Activity II 4-5 Yardwork/Stairs/Walk up hill Past Family History Family History Father Family history of diabetes mellitus Heart disease Grandfather (Maternal) Heart disease Past Surgical History Surgical History S/P tonsillectomy History of cataract surgery History of colonoscopy History of tonsillectomy History of detached retina repair RIGHT Past Anesthesia History No Hx of Anesthesia Complications and No Family Hx of Anesthesia Complications History of PONV No Hx of PONV and No Hx of Motion Sickness Social History Smoking Status: Never smoker Do You Dip or Chew Tobacco: No (HX IN COLLEGE 50 YR AGO) Hx Alcohol Use: No Alcohol type: wine alcohol intake frequency: holidays/special occasions only Hx Substance Use: No substance use type: does not use Physical Exam Vital Signs Last Vital Signs Temp 37.4 C 09/13/23 14:44 Pulse 90 09/13/23 14:44 Resp 20 09/13/23 14:44 BP 154/84 H 09/13/23 14:44 Pulse Ox 93 09/13/23 14:44 O2 Del Method Nasal Cannula 09/13/23 14:44 O2 Flow Rate 3 09/13/23 14:44 Constitutional + morbidly obese ENMT Mouth: no dentition abnormality Thyromental Distance: > or= 3.5 Finger Breadths Mallampati Class: II Neck normal visual inspection Respiratory normal respiratory effort Auscultation: lungs clear to auscultation bilaterally Cardiovascular Rate/Rhythm: regular rate and regular rhythm Heart Sounds: + murmur Chest (Breasts) Chest: + vascular access device or port Psychiatric Orientation: alert Testing Laboratory Results 09/13/23 05:41 09/13/23 05:41 PT 12.4 Seconds (9.0-12.0) H 09/12/23 12:56 INR 1.1 (0.9-1.1) 09/12/23 12:56 Hemoglobin A1c 5.9 % (4.5-5.6) H 09/13/23 05:41 Urine Color Dark Yellow 09/12/23 12:14 Urine Appearance Clear (Clear) 09/12/23 12:14 Urine pH 6.5 (4.5-7.5) 09/12/23 12:14 Ur Specific [place] 1.022 (1.000-1.030) 09/12/23 12:14 Urine Protein 2+ (Negative) H 09/12/23 12:14 Urine Glucose (UA) Negative (Negative) 09/12/23 12:14 Urine Ketones Trace (Negative) H 09/12/23 12:14 Urine Nitrite Negative (Negative) 09/12/23 12:14 Ur Leukocyte Esterase Trace (Negative) H 09/12/23 12:14 Urine WBC (Auto) 1-5 /hpf (0-5) 09/12/23 12:14 Urine RBC (Auto) >30 /hpf (0-4) H 09/12/23 12:14 U Hyaline Cast (Auto) 5-10 /lpf (0-5) H 09/12/23 12:14 U Epithel Cells (Auto) 20-30 /lpf (0-5) H 09/12/23 12:14 Urine Bacteria (Auto) Negative (Negative) 09/12/23 12:14 09/12/23 12:56 Aerobic Blood Culture - Preliminary Blood No growth in Aerobic bottle after 24 hours. Anaerobic Blood Culture - Preliminary No growth in Anaerobic bottle after 24 hours. 09/12/23 12:14 Aerobic Blood Culture - Preliminary Blood No growth in Aerobic bottle after 24 hours. Anaerobic Blood Culture - Preliminary No growth in Anaerobic bottle after 24 hours.
[2023-09-13] MEDS ORDERED: ceFAZolin 330 MG/ML 1 GM VIAL ONE (15:31)
[2023-09-13] MEDS ORDERED: ePHEDrine sulfate 50 MG/ML AMP IV PRN (15:33)
[2023-09-13] MEDS ORDERED: fentaNYL citrate PF 100 MCG/2 ML VIAL IV PRN (15:33)
[2023-09-13] MEDS ORDERED: ATROPINE SULFATE 0.1 MG/ML 10ML SYR IV PRN (15:33)
[2023-09-13] MEDS ORDERED: ONDANSETRON INJ 2 MG/ML 2 ML VIAL IV PRN (15:33)
[2023-09-13] MEDS ORDERED: PROMETHAZINE HCL 6.25 MG in SODIUM CHLORIDE 0.9% 50 ML IV PRN (15:33)
[2023-09-13] MEDS ORDERED: SUGAMMADEX SODIUM 200 MG/2 ML VIAL IV ONE (15:56)
--- NOTE | 2023-09-13 16:25 | Post Operative Brief Note ---
Immediate Post Op Note v1 Date of Surgery September 13, 2023 Pre & Post Diagnosis Operation Date: 09/13/23 07:00 <No data on this case meets the specified criteria> I identified the patient and participated in the time-out.: Yes Procedure Operation Date: 09/13/23 07:00 <No data on this case meets the specified criteria> Surgeon Mingo Kinney MD Concrete Float Maker none Estimated Blood Loss 40 Findings Consistent with Post-Op Diagnosis Drains Jeff-Lawson Drain
--- NOTE | 2023-09-13 16:30 | Operative Report ---
Post Operative Report Pre & Post Diagnosis Operation Date: 09/13/23 07:00 <No data on this case meets the specified criteria> I identified the patient and participated in the time-out.: Yes Procedure Operation Date: 09/13/23 07:00 <No data on this case meets the specified criteria> Surgeon Mingo Kinney MD Tube Maker none Estimated Blood Loss 40 Findings Consistent with Post-Op Diagnosis Acute gangrenous cholecystitis Specimens gallbladder to pathology Drains Delfino drain in the gallbladder fossa Complications None Indications This is a 78-year-old male admitted to the ED with acute cholecystitis. He was placed on the floor was given IV fluids IV antibiotics and will be taken to the OR for laparoscopic cholecystectomy. Went over the risks in detail. Description of Procedure The patient was taken the OR and underwent excellent general endotracheal anesthesia. Their abdomen is prepped and draped normal sterile fashion. Transverse supraumbilical incision was made and dissection was taken down to identify the anterior fascia. Two Vicryl's were placed on either side of the midline and his midline was then incised. The peritoneal cavity was entered bluntly with Kiesha clamp. A 12mm Jacinto trocar was then inserted and secured. Good pneumoperitoneum was achieved to 15 mmHg pressure. Patient is placed in head up and rolled to the left. A 11mm subxiphoid and two 5mm lateral ports were placed in the normal fashion. The gallbladder was identified was acutely inflamed and gangrenous. An aspirator was then used to aspirate the gallbladder. This then facilitated grasping the the fundus of the gallbladder which was retracted superiorly. The neck of the gallbladder was grasped and then retracted laterally. This splayed open the Hepatocystic triangle. Attention was then to taking down the peritoneal attachments to identify the cystic duct and cystic artery. Once these were skeletonized and a medial and lateral window was created between the gallbladder fossa and the duct, thereby ensuring the critical view. Three clips were then placed distally on cystic duct 1 proximally the cystic duct was transected. Two clips were then placed approximately cystic artery one distally, the cystic artery was transected. An electrocautery hook was then used to move the gallbladder off the gallbladder fossa. There was some bile spillage but no stones were spilled. The gallbladde r was then placed in Endobag and brought out through the supraumbilical incision. The pneumoperitoneum was re-established and abdomen was irrigated out until the suction fluid was clear. There were some areas on the gallbladder fossa which were raw and were cauterized. A drain was placed in the gallbladder fossa and brought out through one of the lateral incisions.. The ports were then removed and the abdomen decompressed. The fascia of the supraumbilical incision was closed with Vicryls. 0.5% Marcaine with epinephrine local was to create a local field block. Interrupted Vicryl was used to close the skin. Steri-Strips and benzoin were used to reinforce the incisions. Sterile dressings were applied. Patient tolerated the procedure without complication and sent to the postop recovery period of observation. He will then be sent to the floor for the rest of his care. I attest to the content of the Intraoperative Record and any orders documented therein. Any exceptions are noted below.
[2023-09-13] MEDS: BUPIVACAINE/EPINEPHRINE 0.5% MPF 1:200,000 30 ML VIAL ONE (16:32)
[2023-09-13] MEDS: ALBUT/IPRATROP 3MG/0.5MG NEB 3 ML VIAL NEB STA (16:45)
--- NOTE | 2023-09-13 16:57 | Anesthesiology Progress Note ---
Date of Service September 13, 2023 Anesthesia Post Procedure Vital Signs Vital Signs: Temp Pulse Pulse Pulse Resp BP Pulse Ox 09/13/23 15:14 82 09/13/23 14:44 37.4 C 90 20 154/84 H 93 09/13/23 12:30 09/13/23 11:09 36.9 C 75 16 153/72 H 93 09/13/23 06:26 81 09/13/23 02:52 74 20 93 09/13/23 02:12 37.3 C 83 18 168/93 H 92 09/12/23 22:30 71 09/12/23 21:21 09/12/23 21:21 36.9 C 74 18 157/85 H 93 09/12/23 20:04 94 09/12/23 20:00 75 18 144/87 H 89 L 09/12/23 18:00 63 22 94 O2 Del Method O2 Flow Rate 09/13/23 15:14 09/13/23 14:44 Nasal Cannula 3 09/13/23 12:30 Nasal Cannula 3 09/13/23 11:09 Nasal Cannula 3 09/13/23 06:26 09/13/23 02:52 3 09/13/23 02:12 Nasal Cannula 3 09/12/23 22:30 09/12/23 21:21 Nasal Cannula, CPAP 2 09/12/23 21:21 Nasal Cannula 2 09/12/23 20:04 Nasal Cannula 2 09/12/23 20:00 Room Air 09/12/23 18:00 Room Air Pain Intensity Abdomen: Pain Intensity: 0 Transfer of Care Handoff Completed per policy Notes Mental Status: alert / awake / arousable and participated in evaluation Nausea / Vomiting: adequately controlled Pain: adequately controlled Airway Patency, RR, SpO2: stable & adequate BP & HR: stable & adequate Hydration State: stable & adequate Anesthetic Complications: no major complications apparent and Pt Satisfied with anesthetic care
[2023-09-13] MEDS: ALBUT/IPRATROP 3MG/0.5MG NEB 3 ML VIAL ONE (17:05)
--- NOTE | 2023-09-13 18:02 | Anesthesiology Progress Note ---
Date of Service September 13, 2023 Anesthesia Post Procedure Vital Signs Vital Signs: Temp Pulse Pulse Pulse Resp BP Pulse Ox 09/13/23 17:57 98.4 F 90 16 143/75 H 91 09/13/23 17:20 89 20 142/72 H 92 09/13/23 17:10 99.0 F 90 18 146/73 H 92 09/13/23 17:00 89 16 149/74 H 92 09/13/23 16:50 85 18 154/79 H 92 09/13/23 16:41 99.7 F H 89 18 150/72 H 90 09/13/23 15:14 82 09/13/23 14:44 99.3 F 90 20 154/84 H 93 09/13/23 12:30 09/13/23 11:09 98.4 F 75 16 153/72 H 93 09/13/23 06:26 81 09/13/23 02:52 74 20 93 09/13/23 02:12 99.1 F 83 18 168/93 H 92 09/12/23 22:30 71 09/12/23 21:21 09/12/23 21:21 98.4 F 74 18 157/85 H 93 09/12/23 20:04 94 09/12/23 20:00 75 18 144/87 H 89 L O2 Del Method O2 Flow Rate 09/13/23 17:57 Room Air 09/13/23 17:20 Oxymask 6 09/13/23 17:10 Oxymask 6 09/13/23 17:00 Oxymask 11 09/13/23 16:50 Oxymask 11 09/13/23 16:41 Oxymask 11 09/13/23 15:14 09/13/23 14:44 Nasal Cannula 3 09/13/23 12:30 Nasal Cannula 3 09/13/23 11:09 Nasal Cannula 3 09/13/23 06:26 09/13/23 02:52 3 09/13/23 02:12 Nasal Cannula 3 09/12/23 22:30 09/12/23 21:21 Nasal Cannula, CPAP 2 09/12/23 21:21 Nasal Cannula 2 09/12/23 20:04 Nasal Cannula 2 09/12/23 20:00 Room Air Pain Intensity Abdomen: Pain Intensity: 0 Transfer of Care Handoff Completed per policy Notes Mental Status: alert / awake / arousable and participated in evaluation Patient Amnestic to Procedure: Yes Nausea / Vomiting: adequately controlled Pain: adequately controlled Airway Patency, RR, SpO2: stable & adequate BP & HR: stable & adequate Hydration State: stable & adequate Anesthetic Complications: no major complications apparent and Pt Satisfied with anesthetic care
[2023-09-13] MEDS ORDERED: MoRPHine SULFATE 4 MG/ML 1 ML CARP\\VIAL IV PRN (18:56)
[2023-09-13] MEDS ORDERED: oxyCODONE/ACETAMINOPHEN 5mg/325mg TAB PO PRN (18:56)
[2023-09-13] MEDS ORDERED: MoRPHine SULFATE 2 MG/ML CARP IV PRN (18:56)
[2023-09-13] MEDS: HEPARIN SOD 5,000 UNIT/0.5 ML VIAL SQ SCH (20:27)
[2023-09-13] MEDS: POTASSIUM CHLORIDE CRTAB 20 MEQ TABCR PO SCH (20:27)
[2023-09-13] MEDS: SERTRALINE HCL 50 MG TABLET PO SCH (20:28)
[2023-09-13] MEDS: ASPIRIN 81 MG ECTAB PO SCH (20:28)
[2023-09-13] MEDS: METOPROLOL TARTRATE 25 MG TAB PO SCH (20:28)
[2023-09-13] MEDS: CHOLECALCIFEROL 125 MCG (5,000 UNITS) TAB PO SCH (20:29)
[2023-09-14 06:26] LABS: Basophils # (auto) 0.02 K/uL (0.00-0.20); Basophils % (auto) 0.1 %; Hematocrit (blood only) 35.3 % (42.0-52.0); Hemoglobin 11.7 g/dl (14.0-18.0); Immature Granulocytes % (auto) 0.7 %; Lymphocytes # (auto) 0.61 K/uL (1.20-3.40); Lymphocytes % (auto) 4.1 %; Mean Corpuscular Hemoglobin 30.4 pg (25.0-34.0); Mean Corpuscular Hgb Conc 33.1 g/dL (32.0-36.0); Mean Corpuscular Volume 91.7 fL (80.0-100.0); Mean Platelet Volume 10.2 fL (9.4-12.4); Monocytes # (auto) 1.05 K/uL (0.11-0.59); Neutrophils # (auto) 13.15 K/uL (1.40-6.50); Neutrophils % (auto) 88.1 %; Platelet Count 181 K/uL (130-400); RDW Coefficient of Variation 14.3 % (11.5-14.5); RDW Standard Deviation 48.1 fL (36.4-46.3); Red Blood Count 3.85 M/uL (4.70-6.10); White Blood Count 14.93 K/ul (4.8-10.8)
[2023-09-14 06:38] LABS: Albumin Globulin Ratio 1.2 (0.9-2); BUN Creatinine Ratio 21.1 (10-20); Bilirubin,Total 0.7 mg/dl (0.2-1.0); Calcium 9.1 mg/dl (8.6-10.3); Creatinine Clr Calc Pharmacy 100.7 ml/min; Est GFR (African American) 95.8 ml/min; Est GFR (Non-African American) 82.7 ml/min; Globulin 2.6 gm/dl (2.5-4.0); Potassium 3.6 mmol/L (3.5-5.1); Total Protein 5.6 gm/dl (6.0-8.3)
[2023-09-14] MEDS: amLODIPine BESYLATE 5 MG TAB PO SCH (08:31)
[2023-09-14] MEDS: VITAMIN B COMPLEX TAB PO SCH (08:31)
[2023-09-14] MEDS: hydroCHLOROthiazide 25 MG TAB PO SCH (08:31)
[2023-09-14] MEDS: POTASSIUM CHLORIDE CRTAB 20 MEQ TABCR PO SCH (08:31)
[2023-09-14] MEDS: LOSARTAN POTASSIUM 50 MG TAB PO SCH (08:31)
[2023-09-14] MEDS: VIBEGRON 75 MG TAB PO SCH (08:31)
--- NOTE | 2023-09-14 08:39 | Cardiology Progress Note ---
Date of Service September 14, 2023 Assessment & Plan (1) Aortic stenosis: Plan - Patient is doing well from a cardiac perspective today. Offers no cardiac questions or concerns. -Post op Day 1 with mild post op discomfort. -Review of telemetry shows no acute events, patient is euvolemic on physical exam. -As discussed yesterday, given his moderate aortic stenosis it is prudent to be monitoring his fluid status intraop and post operatively. -Potassium levels have improved. Goal serum K of 4.0 and serum magnesium of 2.0. -No further cardiac testing is indicated at this time. -We will continue to follow perioperatively. Case has been discussed with Dr. Rios. Further recommendations regarding plan of care as per his assessment. I spent a total of 30 minutes on the date of service in preparation, delivery, documentation of the care provided to the patient excluding any time spent in the performance of separately billed services. OLEG Stringer [facility] Admission and Anticipated Discharge Date Admission Date: September 12, 2023 Supervising Physician Co-Signing Physician Notes Attending attestation: I have reviewed the advanced practitioner's documentation, and agree with, and take responsibility for the plan of care. Subjective: Patient feeling well. Eager to get out of bed and sit in bedside chair. He is looking forward to liquid diet for his evening meal. Remains on supplemental oxygen 4 L/min, typically utilizes 3 L/min at home. 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 Continue aspirin, amlodipine, losartan, metoprolol. Supplement electrolytes as indicated. * Subcu heparin for DVT prophylaxis I spent a total of 20 minutes coordinating, documenting, and providing care for this patient excluding time spent in the performance of separately billed services or time spent by another provider. Federico Rios, Subjective 09/14/23: Patient seen and examined in follow up. He is resting in bed, underwent surgery yesterday and offers no cardiac complaints. He endorses mild post operative pain and is most concerned about getting up to use the bathroom. Denies any chest pain, pressure, palpitations, no shortness of breath, PND, pre- syncope, syncope or edema. Review of telemetry demonstrates SR with PVCs and PAC's, 70's. No acute events overnight. Notes, labs, vitals and diagnostics reviewed. Review of Systems Review of Systems: All systems reviewed & are unremarkable except as noted in HPI & below Physical Exam Constitutional: well developed, well nourished and + obese ENMT: Throat: uvula midline and + posterior oropharynx abnormality Neck: normal visual inspection and trachea midline Respiratory: normal respiratory effort, lungs clear to auscultation Cardiovascular: Rate/Rhythm: regular rate and regular rhythm Heart Sounds: normal S1, normal S2 and + murmur Vessels: no JVD Extremities: no edema Skin: no rashes, warm and dry Psychiatric: A+Ox3, euthymic affect Results & Data Vital Signs (Past 12 Hours) Vital Signs Temp Pulse Pulse Resp BP Pulse Ox O2 Del Method 09/14/23 08:33 37.0 C 70 16 132/73 91 CPAP 09/14/23 03:00 36.7 C 69 20 149/80 H 92 CPAP 09/14/23 02:14 75 21 90 09/13/23 22:48 25 H 90 09/13/23 22:00 36.8 C 85 20 152/79 H 92 Oxymask 09/13/23 21:54 85 O2 Flow Rate 09/14/23 08:33 09/14/23 03:00 09/14/23 02:14 8 09/13/23 22:48 6 09/13/23 22:00 6 09/13/23 21:54 Laboratory Results Cardiac Enzymes 09/14/23 Range/Units 05:42 AST 47 H (13-39) U/L CBC 09/14/23 Range/Units 05:42 WBC 14.93 H (4.8-10.8) K/ul RBC 3.85 L (4.70-6.10) M/uL Hgb 11.7 L (14.0-18.0) g/dl Hct 35.3 L (42.0-52.0) % Plt Count 181 (130-400) K/uL Neut # (Auto) 13.15 H (1.40-6.50) K/uL Lymph # (Auto) 0.61 L (1.20-3.40) K/uL [place] # (Auto) 1.05 H (0.11-0.59) K/uL Eos # (Auto) 0.00 (0.00-0.50) K/uL Baso # (Auto) 0.02 (0.00-0.20) K/uL Comprehensive Metabolic Panel 09/14/23 Range/Units 05:42 Sodium 136 (136-145) mmol/L Potassium 3.6 (3.5-5.1) mmol/L Chloride 100 (98-107) mmol/L Carbon Dioxide 28 (21-32) mmol/L BUN 19 (6-23) mg/dl Creatinine 0.90 (0.6-1.4) mg/dl Glucose 158 H (70-99(Fasting)) mg/dl Calcium 9.1 (8.6-10.3) mg/dl AST 47 H (13-39) U/L ALT 25 (7-52) U/L Alkaline Phosphatase 61 (34-104) U/L Total Protein 5.6 L (6.0-8.3) gm/dl Albumin 3.0 L (3.4-5.0) gm/dl Intake and Output 09/13/23 09/14/23 09/14/23 22:59 06:59 14:59 Intake Total 1422.5 / 2906.0 200 / 2906.0 200 / 200 Output Total 480 / 665 185 / 665 Balance 942.5 / 2241.0 15 / 2241.0 200 / 200 Intake: IV 372.5 / 1756.0 100 / 1756.0 200 / 200 Ciprofloxacin / D5w 400 mg In 200 / 400 200 / 200 200 ml @ 100 mls/hr IV Q12H [facility] Rx#:[id number] ceFAZolin 3000MG 72.5 ml @ 130 72.5 / 72.5 mls/hr IV ONCE ONE Rx#:[id number] metroNIDAZOLE 500 mg In 100 ml 100 / 300 100 / 300 @ 100 mls/hr IV Q8H [facility] Rx#: [id number] IV Perioperative 950 / 950 Oral 100 / 200 100 / 200 Output: Urine 300 / 450 150 / 450 Estimated Blood Loss 40 / 40 Drain Output 140 / 175 35 / 175 Right Abdomen GIOVANA #1 140 / 175 35 / 175 Other: Weight 138.4 kg (1) Aortic stenosis Cardiac valve disease etiology: nonrheumatic Qualified Code(s): I35.0 - Nonrheumatic aortic (valve) stenosis
--- NOTE | 2023-09-14 08:40 | Hospitalist Progress Note ---
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 Acute / gangrenous Cholecystitis Pt presenting with 3 days of N/V and RUQ abdominal pain Notes fevers and chills at home Was seen by pcp today who recommended following up in the ED Has a leukocytosis at baseline but significantly more elevated on admission at 19K T bili elevated, other liver enzymes wnl CT abd/pelvis concerning for acute cholecystitis and a few stones in the gallbladder Gallbladder US concerning for acute cholecystitis Blood Cx x2 NGTD NPO initially -> now advanced to clear liquid diet, IV pain meds, very cautious fluids cont IV abx - IV Cipro and Flagyl Consult General Surgery- appreciate recs -s/p cholecystectomy on 09/13 EKG with sinus rhythm with occasional PVCs, hs trop elevated at 22-->20, repeat echo obtained, pt with known mod-severe Hx of aortic stenosis, cardiology consult placed for surgical optimization/clearance. Pt is s/p TURP aborted in May 2022 due to bradycardia. Appreciate recs Echo -mild concentric LVH. LV wall motion is normal. LV systolic function is normal. LVEF 60 to 65%. Aortic valve is trileaflet. Moderate aortic valve calcification is present. Moderate valvular aortic stenosis. cardiology following Cardiomegaly Trop Elevation hs trop elevated at 22-->20 EKG with sinus rhythm with occasional PVCs Repeat Echo with EF 60-65%, moderate aortic stenosis Chest imaging noting cardiomegaly Doubt ACS Chronic Leukocytosis Was on high dose prednisone 80mg daily from May 29 to mid Jul 2023 Likely chronically elevated in that setting with an acute infectious component Continue with IV antibiotics as noted above Consider Hematology consult Hypokalemia Replete as needed Hyponatremia Minimally decreased at 134 Continue to monitor at this time Hyperglycemia Glucose levels elevated at 150 Prediabetic with Hgba1c of 5.9 Continue to monitor levels once pt resumes a diet Abdominal Aneurysm Iliac Artery aneurysm AAA noted on imaging, 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 Was on keytruda, had immune mediated hepatitis and rhabdomyolysis, was on high dose prednisone 80mg taper from May 29 to mid Jul 2023 BCC, left calf- per Derm, pt notified on 08/30, Derm follow up HTN- on amlodipine, losartan, hctz, metoprolol HLD- on statin Hx of BPH, s/p TURP aborted in 2021 due to bradycardia- currently only on mybetriq Mood Disorder- on sertraline Vit D def- on supplements CODE STATUS: Full code per discussion with pt Diet: Clear liquids post-op DVT prophylaxis: Heparin SQ post-op Dispo: Med/Surg with tele, pt requesting bariatric bed Admission and Anticipated Discharge Date Admission Date: September 12, 2023 Subjective Pt s/p cholecystectomy yesterday for acute / gangrenous cholecystitis Pt w/ hx of metastatic melanoma, hx of - seen by cardiology as well during this hosp. stay Currently laying in bed in NAD. Says while he is laying in bed his abdomen feels ok, however he has a lot of pain with any mild movement. Denies any chest pain, shortness of breath, but currently on suppl. O2. will order IS. Denies any fever, chills. Review of Systems Review of Systems: All systems reviewed & are unremarkable except as noted in Subjective Physical Exam Physical Exam: General: Alert, oriented. No acute distress HEENT: NC/AT Chest: Nontender to palpation. CV: RRR, + murmur appreciated Resp: Breath sounds clear bilaterally, no increased effort of breathing. Abdomen: Soft, tender in RUQ, nondistended. No guarding. +GIOVANA Extremities: LE edema b/l , scds applied Psych: Appropriate mood and affect Neuro: awake, and alert, answers appropriately, moves extremities Results & Data Results & Data Vital Signs (Past 12 Hours) Vital Signs Temp Pulse Pulse Resp BP Pulse Ox O2 Del Method 09/14/23 08:33 37.0 C 70 16 132/73 91 CPAP 09/14/23 03:00 36.7 C 69 20 149/80 H 92 CPAP 09/14/23 02:14 75 21 90 09/13/23 22:48 25 H 90 09/13/23 22:00 36.8 C 85 20 152/79 H 92 Oxymask 09/13/23 21:54 85 O2 Flow Rate 09/14/23 08:33 09/14/23 03:00 09/14/23 02:14 8 09/13/23 22:48 6 09/13/23 22:00 6 09/13/23 21:54 Laboratory Results 09/14/23 Range/Units 05:42 WBC 14.93 H (4.8-10.8) K/ul RBC 3.85 L (4.70-6.10) M/uL Hgb 11.7 L (14.0-18.0) g/dl Hct 35.3 L (42.0-52.0) % MCV 91.7 (80.0-100.0) fL MCH 30.4 (25.0-34.0) pg MCHC 33.1 (32.0-36.0) g/dL RDW Std Deviation 48.1 H (36.4-46.3) fL RDW Coeff of Belen 14.3 (11.5-14.5) % Plt Count 181 (130-400) K/uL MPV 10.2 (9.4-12.4) fL Immature Gran % (Auto) 0.7 % Neut % (Auto) 88.1 % Lymph % (Auto) 4.1 % [place] % (Auto) 7.0 % Eos % (Auto) 0.0 % Baso % (Auto) 0.1 % Neut # (Auto) 13.15 H (1.40-6.50) K/uL Lymph # (Auto) 0.61 L (1.20-3.40) K/uL [place] # (Auto) 1.05 H (0.11-0.59) K/uL Eos # (Auto) 0.00 (0.00-0.50) K/uL Baso # (Auto) 0.02 (0.00-0.20) K/uL Immature Gran # (Auto) 0.10 (0.01-0.20) K/uL Sodium 136 (136-145) mmol/L Potassium 3.6 (3.5-5.1) mmol/L Chloride 100 (98-107) mmol/L Carbon Dioxide 28 (21-32) mmol/L Anion Gap 8 (3-11) BUN 19 (6-23) mg/dl Creatinine 0.90 (0.6-1.4) mg/dl Est Cr Clr Drug Dosing 100.7 ml/min Est GFR ( Amer) 95.8 ml/min Est GFR (Non-Af Amer) 82.7 ml/min BUN/Creatinine Ratio 21.1 H (10-20) Glucose 158 H (70-99(Fasting)) mg/dl Calcium 9.1 (8.6-10.3) mg/dl Phosphorus 4.0 (2.5-4.9) mg/dl Magnesium 2.0 (1.7-2.4) mg/dl Total Bilirubin 0.7 (0.2-1.0) mg/dl AST 47 H (13-39) U/L ALT 25 (7-52) U/L Alkaline Phosphatase 61 (34-104) U/L Total Protein 5.6 L (6.0-8.3) gm/dl Albumin 3.0 L (3.4-5.0) gm/dl Globulin 2.6 (2.5-4.0) gm/dl Albumin/Globulin Ratio 1.2 (0.9-2) Medications Administered Current Inpatient Medications Amlodipine Besylate (Amlodipine Besylate 5 Mg Tab) 10 mg PO QAM ODIN Stop: 10/14/23 08:59 Aspirin (Aspirin 81 Mg Ectab) 81 mg PO HS ODIN Stop: 10/13/23 20:59 Last Admin: 09/13/23 20:28 Dose: 81 mg Atorvastatin Calcium (Atorvastatin 20 Mg Tab) 20 mg PO DAILY ODIN Stop: 10/14/23 08:59 Heparin Sodium (Porcine) (Heparin Sod 5,000 Unit/0.5 Ml Vial) 5,000 units SQ Q12 ODIN Stop: 10/13/23 20:59 Last Admin: 09/13/23 20:27 Dose: 5,000 units Hydrochlorothiazide (Hydrochlorothiazide 25 Mg Tab) 25 mg PO QAM ODIN Stop: 10/14/23 08:59 Hydromorphone HCl (Hydromorphone Inj 0.5 Mg/0.5 Ml Syr) 0.5 mg IV Q4H PRN PRN Reason: Mod-Sev Pain (Scale 4-10) Stop: 09/26/23 16:22 Last Admin: 09/13/23 10:14 Dose: 0.5 mg Ciprofloxacin (Cipro / D5w) 400 mg in 200 mls @ 100 mls/hr IV Q12H REPLACED BY [facility]; Protocol Stop: 09/22/23 16:29 Last Infusion: 09/14/23 08:25 Dose: Infused Metronidazole (Flagyl) 500 mg in 100 mls @ 100 mls/hr IV Q8H REPLACED BY [facility]; Protocol Stop: 09/22/23 16:29 Last Infusion: 09/14/23 01:07 Dose: Infused Acetaminophen (Ofirmev) 1,000 mg in 100 mls @ 400 mls/hr IV Q8H PRN PRN Reason: Mild Pain (Scale 1, 2, 3) Stop: 09/15/23 16:22 Losartan Potassium (Losartan Potassium 50 Mg Tab) 100 mg PO [facility] Stop: 10/14/23 08:59 Metoprolol Tartrate (Metoprolol Tartrate 25 Mg Tab) 25 mg PO BID REPLACED BY [facility] Stop: 10/13/23 20:59 Last Admin: 09/13/23 20:28 Dose: 25 mg Morphine Sulfate (Morphine Sulfate 4 Mg/Ml 1 Ml Carp\Vial) 4 mg IV Q3H PRN PRN Reason: Pain (6,7,8,9,10) Stop: 09/27/23 18:55 Morphine Sulfate (Morphine Sulfate 2 Mg/Ml Carp) 2 mg IV Q3H PRN PRN Reason: Pain (1,2,3,4,5) & Pre PT Stop: 09/27/23 18:55 Ondansetron HCl (Ondansetron Inj 2 Mg/Ml 2 Ml Vial) 4 mg IV Q4H PRN PRN Reason: Nausea Stop: 10/12/23 16:22 Oxycodone/Acetaminophen (Oxycodone/Acetaminophen 5mg/325mg Tab) 2 tab PO Q4H [place] N PRN Reason: SEVERE Pain (7,8,9,10) Stop: 09/27/23 18:55 Oxycodone/Acetaminophen (Oxycodone/Acetaminophen 5mg/325mg Tab) 1 tab PO Q4H PRN PRN Reason: MODERATE Pain (4,5,6) & Pre PT Stop: 09/27/23 18:55 Potassium Chloride (Potassium Chloride Crtab 20 Meq Tabcr) 20 meq PO 1700 ODIN Stop: 10/13/23 19:44 Last Admin: 09/13/23 20:27 Dose: 20 meq Potassium Chloride (Potassium Chloride Crtab 20 Meq Tabcr) 40 meq PO DAILY ODIN Stop: 10/14/23 08:59 Senna/Docusate Sodium (Docusate Sodium/Senna 50/8.6mg Tab) 1 - 2 tab PO BID PRN PRN Reason: constipation Stop: 10/13/23 19:21 Sertraline HCl (Sertraline Hcl 50 Mg Tablet) 50 mg PO HS ODIN Stop: 10/13/23 20:59 Last Admin: 09/13/23 20:28 Dose: 50 mg Vibegron (Vibegron 75 Mg Tab) 75 mg PO DAILY ODIN Stop: 10/14/23 08:59 Vitamin B Complex (Vitamin B Complex Tab) 1 tab PO DAILY ODIN Stop: 10/14/23 08:59 Vitamin D (Cholecalciferol 5,000 Units 125 Mcg Tab) 5,000 units PO PM ODIN Stop: 10/13/23 20:59 Last Admin: 09/13/23 20:29 Dose: 5,000 units (5) Aortic stenosis Cardiac valve disease etiology: nonrheumatic Qualified Code(s): I35.0 - Nonrheumatic aortic (valve) stenosis
--- NOTE | 2023-09-14 09:26 | Surgery Progress Note ---
Date of Service September 14, 2023 Assessment & Plan (1) Acute cholecystitis: Plan: gangrenous cholecystitis at least one more day of abx ambulate advance diet as tolerated con't GIOVANA Admission and Anticipated Discharge Date Admission Date: September 12, 2023 Subjective apin controlled OK eating OK GIOVANA serosanguinous Review of Systems Constitutional: no fever and no chills Cardiovascular: no chest pain Gastrointestinal: + abdominal pain; no nausea and no vomit ing Genitourinary: no dysuria Neurologic: + generalized weakness; no localized wea kness Psychiatric: no behavioral changes Physical Exam Constitutional: WD/WN, vitals as above Eyes: PERRL, conjunctivae normal, anicteric sclerae Neck: trachea midline Respiratory: normal respiratory effort, lungs clear to auscultation Cardiovascular: RRR, no murmur, no edema Gastrointestinal (Abdomen): Inspection/Auscultation: normal bowel sounds and + abdominal surgical incision (dressings in place); abdomen not distended Percussion/Palpation: + abdomen tender and abdomen soft; no guarding and abdomen not rigid Musculoskeletal: Head/Neck/Chest: normocephalic and head atraumatic Results & Data Vital Signs (Past 12 Hours) Vital Signs Temp Pulse Pulse Resp BP Pulse Ox O2 Del Method 09/14/23 08:33 37.0 C 70 16 132/73 91 CPAP 09/14/23 03:00 36.7 C 69 20 149/80 H 92 CPAP 09/14/23 02:14 75 21 90 09/13/23 22:48 25 H 90 09/13/23 22:00 36.8 C 85 20 152/79 H 92 Oxymask 09/13/23 21:54 85 O2 Flow Rate 09/14/23 08:33 09/14/23 03:00 09/14/23 02:14 8 09/13/23 22:48 6 09/13/23 22:00 6 09/13/23 21:54
[2023-09-14] MEDS: DOCUSATE SODIUM/SENNA 50/8.6MG TAB PO PRN (12:23)
[2023-09-14] MEDS: ATORVASTATIN 20 MG TAB PO SCH (12:23)
[2023-09-14] MEDS: oxyCODONE/ACETAMINOPHEN 5mg/325mg TAB PO PRN (12:24)
[2023-09-15 06:33] LABS: Basophils # (auto) 0.03 K/uL (0.00-0.20); Basophils % (auto) 0.3 %; Eosinophils # (auto) 0.06 K/uL (0.00-0.50); Eosinophils % (auto) 0.5 %; Hematocrit (blood only) 34.2 % (42.0-52.0); Hemoglobin 11.3 g/dl (14.0-18.0); Immature Granulocytes # (auto) 0.06 K/uL (0.01-0.20); Immature Granulocytes % (auto) 0.5 %; Lymphocytes # (auto) 1.43 K/uL (1.20-3.40); Mean Corpuscular Hemoglobin 30.1 pg (25.0-34.0); Monocytes # (auto) 1.03 K/uL (0.11-0.59); Monocytes % (auto) 8.6 %; Neutrophils # (auto) 9.33 K/uL (1.40-6.50); Neutrophils % (auto) 78.1 %; Platelet Count 241 K/uL (130-400); RDW Coefficient of Variation 14.5 % (11.5-14.5); RDW Standard Deviation 48.8 fL (36.4-46.3); Red Blood Count 3.76 M/uL (4.70-6.10); White Blood Count 11.94 K/ul (4.8-10.8)
[2023-09-15 06:56] LABS: Albumin Globulin Ratio 1.2 (0.9-2); BUN Creatinine Ratio 28.8 (10-20); Bilirubin,Total 0.5 mg/dl (0.2-1.0); Calcium 8.9 mg/dl (8.6-10.3); Creatinine Clr Calc Pharmacy 113.6 ml/min; Est GFR (African American) 100.6 ml/min; Est GFR (Non-African American) 86.8 ml/min; Globulin 2.6 gm/dl (2.5-4.0); Potassium 3.5 mmol/L (3.5-5.1); Total Protein 5.6 gm/dl (6.0-8.3)
--- NOTE | 2023-09-15 10:23 | Surgery Progress Note ---
Date of Service September 15, 2023 Assessment & Plan (1) Acute cholecystitis: Plan: doing well drain removed possibly home later today or tomorrow with gangrenous GB will sign off appt my clinic 2 weeks Admission and Anticipated Discharge Date Admission Date: September 12, 2023 Subjective feels better drain minimal output Review of Systems Constitutional: no fever and no chills Gastrointestinal: + abdominal pain; no nausea and no vomit ing Genitourinary: no dysuria Physical Exam Gastrointestinal (Abdomen): Inspection/Auscultation: abdomen normal to inspection and normal bowel sounds; abdomen not distended Percussion/Palpation: + abdomen tender and abdomen soft; no guarding and abdomen not rigid Musculoskeletal: Head/Neck/Chest: normocephalic and head atraumatic Results & Data Vital Signs (Past 12 Hours) Vital Signs Temp Pulse Pulse Resp BP Pulse Ox O2 Del Method 09/15/23 09:36 Nasal Cannula 09/15/23 08:16 36.5 C 69 18 119/71 93 Nasal Cannula 09/15/23 06:00 62 09/15/23 04:34 36.4 C L 69 18 136/83 92 CPAP 09/15/23 04:05 75 16 94 O2 Flow Rate 09/15/23 09:36 3 09/15/23 08:16 4 09/15/23 06:00 09/15/23 04:34 09/15/23 04:05 4
--- NOTE | 2023-09-15 10:33 | Hospitalist Progress Note ---
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 Acute / gangrenous Cholecystitis Pt presenting with 3 days of N/V and RUQ abdominal pain Notes fevers and chills at home Was seen by pcp today who recommended following up in the ED Has a leukocytosis at baseline but significantly more elevated on admission at 19K T bili elevated, other liver enzymes wnl CT abd/pelvis concerning for acute cholecystitis and a few stones in the gallbladder Gallbladder US concerning for acute cholecystitis Blood Cx x2 NGTD NPO initially -> now advanced to clear liquid diet, IV pain meds, very cautious fluids cont IV abx - IV Cipro and Flagyl Consult General Surgery- appreciate recs -s/p cholecystectomy on 09/13 EKG with sinus rhythm with occasional PVCs, hs trop elevated at 22-->20, repeat echo obtained, pt with known mod-severe Hx of aortic stenosis, cardiology consult placed for surgical optimization/clearance. Pt is s/p TURP aborted in May 2022 due to bradycardia. Appreciate recs Echo -mild concentric LVH. LV wall motion is normal. LV systolic function is normal. LVEF 60 to 65%. Aortic valve is trileaflet. Moderate aortic valve calcification is present. Moderate valvular aortic stenosis. cardiology following Cardiomegaly Trop Elevation hs trop elevated at 22-->20 EKG with sinus rhythm with occasional PVCs Repeat Echo with EF 60-65%, moderate aortic stenosis Chest imaging noting cardiomegaly Doubt ACS Chronic Leukocytosis Was on high dose prednisone 80mg daily from May 29 to mid Jul 2023 Likely chronically elevated in that setting with an acute infectious component Continue with IV antibiotics as noted above Consider Hematology consult WBC 20k on admission now down to 11.9 k Hypokalemia Replete and monitor Hyponatremia Minimally decreased at 134, now at 137 Continue to monitor at this time Hyperglycemia Glucose levels elevated at 150 Prediabetic with Hgba1c of 5.9 Continue to monitor levels once pt resumes a diet Abdominal Aneurysm Iliac Artery aneurysm AAA noted on imaging, 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 Was on keytruda, had immune mediated hepatitis and rhabdomyolysis, was on high dose prednisone 80mg taper from May 29 to mid Jul 2023 BCC, left calf- per Derm, pt notified on 08/30, Derm follow up HTN- on amlodipine, losartan, hctz, metoprolol HLD- on statin Hx of BPH, s/p TURP aborted in 2021 due to bradycardia- currently only on mybetriq Mood Disorder- on sertraline Vit D def- on supplements CODE STATUS: Full code per discussion with pt Diet: Clear liquids post-op DVT prophylaxis: Heparin SQ Dispo: Med/Surg with tele, pt requesting bariatric bed Admission and Anticipated Discharge Date Admission Date: September 12, 2023 Subjective Pt s/p cholecystectomy for acute / gangrenous cholecystitis Pt w/ hx of metastatic melanoma, hx of - seen by cardiology as well during this hosp. stay Currently sitting up in chair in NAD. On suppl. O2, says he worked w/ PT today. Drain was removed by surgery today. Denies any chest pain, shortness of breath, but currently on suppl. O2. encourage IS. Denies any fever, chills. Review of Systems Review of Systems: All systems reviewed & are unremarkable except as noted in Subjective Physical Exam Physical Exam: General: Alert, oriented. No acute distress HEENT: NC/AT Chest: Nontender to palpation. CV: RRR, + murmur appreciated Resp: Breath sounds clear bilaterally, no increased effort of breathing. Abdomen: Soft, tender in RUQ, nondistended. No guarding. GIOVANA removed. Extremities: mild LE edema b/l Psych: Appropriate mood and affect Neuro: awake, and alert, answers appropriately, moves extremities Results & Data Results & Data Vital Signs (Past 12 Hours) Vital Signs Temp Pulse Pulse Resp BP Pulse Ox O2 Del Method 09/15/23 09:36 Nasal Cannula 09/15/23 08:16 36.5 C 69 18 119/71 93 Nasal Cannula 09/15/23 06:00 62 09/15/23 04:34 36.4 C L 69 18 136/83 92 CPAP 09/15/23 04:05 75 16 94 O2 Flow Rate 09/15/23 09:36 3 09/15/23 08:16 4 09/15/23 06:00 09/15/23 04:34 09/15/23 04:05 4 Laboratory Results 09/15/23 Range/Units 05:44 WBC 11.94 H (4.8-10.8) K/ul RBC 3.76 L (4.70-6.10) M/uL Hgb 11.3 L (14.0-18.0) g/dl Hct 34.2 L (42.0-52.0) % MCV 91.0 (80.0-100.0) fL MCH 30.1 (25.0-34.0) pg MCHC 33.0 (32.0-36.0) g/dL RDW Std Deviation 48.8 H (36.4-46.3) fL RDW Coeff of Belen 14.5 (11.5-14.5) % Plt Count 241 (130-400) K/uL MPV 10.0 (9.4-12.4) fL Immature Gran % (Auto) 0.5 % Neut % (Auto) 78.1 % Lymph % (Auto) 12.0 % Real % (Auto) 8.6 % Eos % (Auto) 0.5 % Baso % (Auto) 0.3 % Neut # (Auto) 9.33 H (1.40-6.50) K/uL Lymph # (Auto) 1.43 (1.20-3.40) K/uL Real # (Auto) 1.03 H (0.11-0.59) K/uL Eos # (Auto) 0.06 (0.00-0.50) K/uL Baso # (Auto) 0.03 (0.00-0.20) K/uL Immature Gran # (Auto) 0.06 (0.01-0.20) K/uL Sodium 137 (136-145) mmol/L Potassium 3.5 (3.5-5.1) mmol/L Chloride 102 (98-107) mmol/L Carbon Dioxide 28 (21-32) mmol/L Anion Gap 7 (3-11) BUN 23 (6-23) mg/dl Creatinine 0.80 (0.6-1.4) mg/dl Est Cr Clr Drug Dosing 113.6 ml/min Est GFR ( Amer) 100.6 ml/min Est GFR (Non-Af Amer) 86.8 ml/min BUN/Creatinine Ratio 28.8 H (10-20) Glucose 129 H (70-99(Fasting)) mg/dl Calcium 8.9 (8.6-10.3) mg/dl Phosphorus 3.0 D (2.5-4.9) mg/dl Magnesium 2.0 (1.7-2.4) mg/dl Total Bilirubin 0.5 (0.2-1.0) mg/dl AST 61 H (13-39) U/L ALT 33 (7-52) U/L Alkaline Phosphatase 88 (34-104) U/L Total Protein 5.6 L (6.0-8.3) gm/dl Albumin 3.0 L (3.4-5.0) gm/dl Globulin 2.6 (2.5-4.0) gm/dl Albumin/Globulin Ratio 1.2 (0.9-2) Medications Administered Current Inpatient Medications Amlodipine Besylate (Amlodipine Besylate 5 Mg Tab) 10 mg PO QA ODIN Stop: 10/14/23 08:59 Last Admin: 09/15/23 07:56 Dose: 10 mg Aspirin (Aspirin 81 Mg Ectab) 81 mg PO HS ODIN Stop: 10/13/23 20:59 Last Admin: 09/14/23 20:46 Dose: 81 mg Atorvastatin Calcium (Atorvastatin 20 Mg Tab) 20 mg PO DAILY ODIN Stop: 10/14/23 08:59 Last Admin: 09/15/23 07:56 Dose: 20 mg Heparin Sodium (Porcine) (Heparin Sod 5,000 Unit/0.5 Ml Vial) 5,000 units SQ Q12 ODIN Stop: 10/13/23 20:59 Last Admin: 09/15/23 08:58 Dose: 5,000 units Hydrochlorothiazide (Hydrochlorothiazide 25 Mg Tab) 25 mg PO QAM ODIN Stop: 10/14/23 08:59 Last Admin: 09/15/23 07:56 Dose: 25 mg Hydromorphone HCl (Hydromorphone Inj 0.5 Mg/0.5 Ml Syr) 0.5 mg IV Q4H PRN PRN Reason: Mod-Sev Pain (Scale 4-10) Stop: 09/26/23 16:22 Last Admin: 09/13/23 10:14 Dose: 0.5 mg Ciprofloxacin (Cipro / D5w) 400 mg in 200 mls @ 100 mls/hr IV Q12H [facility]; Protocol Stop: 09/22/23 16:29 Last Infusion: 09/15/23 07:54 Dose: Infused Metronidazole (Flagyl) 500 mg in 100 mls @ 100 mls/hr IV Q8H [facility]; Protocol Stop: 09/22/23 16:29 Last Infusion: 09/15/23 10:30 Dose: Infused Acetaminophen (Ofirmev) 1,000 mg in 100 mls @ 400 mls/hr IV Q8H PRN PRN Reason: Mild Pain (Scale 1, 2, 3) Stop: 09/15/23 16:22 Losartan Potassium (Losartan Potassium 50 Mg Tab) 100 mg PO [facility] Stop: 10/14/23 08:59 Last Admin: 09/15/23 07:56 Dose: 100 mg Metoprolol Tartrate (Metoprolol Tartrate 25 Mg Tab) 25 mg PO BID [facility] Stop: 10/13/23 20:59 Last Admin: 09/15/23 07:57 Dose: 25 mg Morphine Sulfate (Morphine Sulfate 4 Mg/Ml 1 Ml Carp\Vial) 4 mg IV Q3H PRN PRN Reason: Pain (6,7,8,9,10) Stop: 09/27/23 18:55 Morphine Sulfate (Morphine Sulfate 2 Mg/Ml Carp) 2 mg IV Q3H PRN PRN Reason: Pain (1,2,3,4,5) & Pre PT Stop: 09/27/23 18:55 Ondansetron HCl (Ondansetron Inj 2 Mg/Ml 2 Ml Vial) 4 mg IV Q4H PRN PRN Reason: Nausea Stop: 10/12/23 16:22 Oxycodone/Acetaminophen (Oxycodone/Acetaminophen 5mg/325mg Tab) 2 tab PO Q4H PRN PRN Reason: SEVERE Pain (7,8,9,10) Stop: 09/27/23 18:55 Oxycodone/Acetaminophen (Oxycodone/Acetaminophen 5mg/325mg Tab) 1 tab PO Q4H PRN PRN Reason: MODERATE Pain (4,5,6) & Pre PT Stop: 09/27/23 18:55 Last Admin: 09/14/23 20:51 Dose: 1 tab Potassium Chloride (Potassium Chloride Crtab 20 Meq Tabcr) 20 meq PO 1700 ODIN Stop: 10/13/23 19:44 Last Admin: 09/14/23 17:05 Dose: 20 meq Potassium Chloride (Potassium Chloride Crtab 20 Meq Tabcr) 40 meq PO DAILY ODIN Stop: 10/14/23 08:59 Last Admin: 09/15/23 07:57 Dose: 40 meq Senna/Docusate Sodium (Docusate Sodium/Senna 50/8.6mg Tab) 1 - 2 tab PO BID PRN PRN Reason: constipation Stop: 10/13/23 19:21 Last Admin: 09/15/23 05:29 Dose: 2 tab Sertraline HCl (Sertraline Hcl 50 Mg Tablet) 50 mg PO HS ODIN Stop: 10/13/23 20:59 Last Admin: 09/14/23 20:48 Dose: 50 mg Vibegron (Vibegron 75 Mg Tab) 75 mg PO DAILY ODIN Stop: 10/14/23 08:59 Last Admin: 09/15/23 07:56 Dose: 75 mg Vitamin B Complex (Vitamin B Complex Tab) 1 tab PO DAILY ODIN Stop: 10/14/23 08:59 Last Admin: 09/15/23 07:56 Dose: 1 tab Vitamin D (Cholecalciferol 5,000 Units 125 Mcg Tab) 5,000 units PO PM ODIN Stop: 10/13/23 20:59 Last Admin: 09/14/23 20:47 Dose: 5,000 units (5) Aortic stenosis Cardiac valve disease etiology: nonrheumatic Qualified Code(s): I35.0 - Nonrheumatic aortic (valve) stenosis
--- NOTE | 2023-09-15 13:55 | Cardiology Progress Note ---
Date of Service September 15, 2023 Assessment & Plan (1) Aortic stenosis: Plan - Patient is doing well from a cardiac perspective today. Offers no cardiac questions or concerns. -Post op Day 2 with mild post op discomfort. continues to show improvement. -Review of telemetry shows no acute events, patient is euvolemic on physical exam. -As discussed yesterday, given his moderate aortic stenosis it is prudent to be monitoring his fluid status intraop and post operatively. -Potassium levels have improved. Goal serum K of 4.0 and serum magnesium of 2.0. -No further cardiac testing is indicated at this time. -We will continue to follow perioperatively. Case has been discussed with Dr. Rios. Further recommendations regarding plan of care as per his assessment. I spent a total of 30 minutes on the date of service in preparation, delivery, documentation of the care provided to the patient excluding any time spent in the performance of separately billed services. OLEG Stringer [facility] Cardiology [facility] Admission and Anticipated Discharge Date Admission Date: September 12, 2023 Supervising Physician Co-Signing Physician Notes Supervising Physician Attestation: I agree with the nurse practitioner's findings and plan as documented. Federico Rios, Subjective 09/15/23: Patient seen and examined at bedside. He is out of bed to the chair today and feels well. Offers no cardiac questions or concerns. Denies chest pain, pressure, palpitations, shortness of breath or swelling. Telemetry reviewed showing SR with PAC's rates 60's. No acute events overnight. Notes, labs, vitals and diagnostics reviewed. Review of Systems Review of Systems: All systems reviewed & are unremarkable except as noted in HPI & below Physical Exam Constitutional: well developed, well nourished and + obese ENMT: Throat: uvula midline and + posterior oropharynx abnormality Neck: normal visual inspection and trachea midline Respiratory: normal respiratory effort, lungs clear to auscultation Cardiovascular: Rate/Rhythm: regular rate and regular rhythm Heart Sounds: normal S1, normal S2 and + murmur Vessels: no JVD Extremities: no edema Skin: no rashes, warm and dry Psychiatric: A+Ox3, euthymic affect Results & Data Vital Signs (Past 12 Hours) Vital Signs Temp Pulse Pulse Resp BP Pulse Ox O2 Del Method 09/15/23 12:11 36.9 C 65 18 104/59 L 94 Nasal Cannula 09/15/23 09:36 Nasal Cannula 09/15/23 08:16 36.5 C 69 18 119/71 93 Nasal Cannula 09/15/23 06:00 62 09/15/23 04:34 36.4 C L 69 18 136/83 92 CPAP 09/15/23 04:05 75 16 94 O2 Flow Rate 09/15/23 12:11 2 09/15/23 09:36 3 09/15/23 08:16 4 09/15/23 06:00 09/15/23 04:34 09/15/23 04:05 4 Laboratory Results Cardiac Enzymes 09/15/23 Range/Units 05:44 AST 61 H (13-39) U/L CBC 09/15/23 Range/Units 05:44 WBC 11.94 H (4.8-10.8) K/ul RBC 3.76 L (4.70-6.10) M/uL Hgb 11.3 L (14.0-18.0) g/dl Hct 34.2 L (42.0-52.0) % Plt Count 241 (130-400) K/uL Neut # (Auto) 9.33 H (1.40-6.50) K/uL Lymph # (Auto) 1.43 (1.20-3.40) K/uL Murray # (Auto) 1.03 H (0.11-0.59) K/uL Eos # (Auto) 0.06 (0.00-0.50) K/uL Baso # (Auto) 0.03 (0.00-0.20) K/uL Comprehensive Metabolic Panel 09/15/23 Range/Units 05:44 Sodium 137 (136-145) mmol/L Potassium 3.5 (3.5-5.1) mmol/L Chloride 102 (98-107) mmol/L Carbon Dioxide 28 (21-32) mmol/L BUN 23 (6-23) mg/dl Creatinine 0.80 (0.6-1.4) mg/dl Glucose 129 H (70-99(Fasting)) mg/dl Calcium 8.9 (8.6-10.3) mg/dl AST 61 H (13-39) U/L ALT 33 (7-52) U/L Alkaline Phosphatase 88 (34-104) U/L Total Protein 5.6 L (6.0-8.3) gm/dl Albumin 3.0 L (3.4-5.0) gm/dl Intake and Output 09/14/23 09/15/23 09/15/23 22:59 06:59 14:59 Intake Total 780 / 2000 200 / 2000 300 / 300 Output Total 120 / 385 235 / 385 Balance 660 / 1615 -35 / 1615 300 / 300 Intake: IV 300 / 700 100 / 700 300 / 300 Ciprofloxacin / D5w 400 mg In 200 / 400 200 / 200 200 ml @ 100 mls/hr IV Q12H ODIN Rx#:[id number] metroNIDAZOLE 500 mg In 100 ml 100 / 300 100 / 300 100 / 100 @ 100 mls/hr IV Q8H ODIN Rx#: [id number] Oral 480 / 1300 100 / 1300 Output: Urine 100 / 325 225 / 325 Drain Output Right Abdomen GIOVANA #1 Other: Weight 139.2 kg (1) Aortic stenosis Cardiac valve disease etiology: nonrheumatic Qualified Code(s): I35.0 - Nonrheumatic aortic (valve) stenosis
[2023-09-15] MEDS: POLYETHYLENE (MIRALAX) 17 GM PACK PO PRN (15:59)
[2023-09-15] MEDS: ACETAMINOPHEN 325 MG TAB PO PRN (19:59)
[2023-09-15] MEDS: CHOLECALCIFEROL 125 MCG (5,000 UNITS) TAB PO SCH (20:00)
[2023-09-16 06:25] LABS: Hemoglobin 11.4 g/dl (14.0-18.0); Mean Corpuscular Hemoglobin 29.8 pg (25.0-34.0); Mean Corpuscular Hgb Conc 32.6 g/dL (32.0-36.0); Mean Corpuscular Volume 91.6 fL (80.0-100.0); Mean Platelet Volume 9.4 fL (9.4-12.4); Platelet Count 265 K/uL (130-400); RDW Coefficient of Variation 14.4 % (11.5-14.5); RDW Standard Deviation 48.5 fL (36.4-46.3); Red Blood Count 3.82 M/uL (4.70-6.10)
[2023-09-16 06:38] LABS: Albumin Globulin Ratio 1.1 (0.9-2); Albumin Level 2.9 gm/dl (3.4-5.0); BUN Creatinine Ratio 22.6 (10-20); Bilirubin,Total 0.4 mg/dl (0.2-1.0); Calcium 8.6 mg/dl (8.6-10.3); Creatinine Clr Calc Pharmacy 97.7 ml/min; Est GFR (African American) 92.1 ml/min; Est GFR (Non-African American) 79.5 ml/min; Globulin 2.6 gm/dl (2.5-4.0); Phosphorus 3.1 mg/dl (2.5-4.9); Potassium 3.5 mmol/L (3.5-5.1); Total Protein 5.5 gm/dl (6.0-8.3)
--- NOTE | 2023-09-16 10:54 | Hospitalist Progress Note ---
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 Acute / gangrenous Cholecystitis Pt presenting with 3 days of N/V and RUQ abdominal pain Notes fevers and chills at home Was seen by pcp today who recommended following up in the ED Has a leukocytosis at baseline but significantly more elevated on admission at 19K T bili elevated, other liver enzymes wnl CT abd/pelvis concerning for acute cholecystitis and a few stones in the gallbladder Gallbladder US concerning for acute cholecystitis Blood Cx x2 NGTD NPO initially -> now advanced diet and tolerating , IV pain meds, very cautious fluids cont IV abx - IV Cipro and Flagyl Consult General Surgery- appreciate recs -s/p cholecystectomy on 09/13 EKG with sinus rhythm with occasional PVCs, hs trop elevated at 22-->20, repeat echo obtained, pt with known mod-severe Hx of aortic stenosis, cardiology consult placed for surgical optimization/clearance. Pt is s/p TURP aborted in May 2022 due to bradycardia. Appreciate recs Echo -mild concentric LVH. LV wall motion is normal. LV systolic function is normal. LVEF 60 to 65%. Aortic valve is trileaflet. Moderate aortic valve calcification is present. Moderate valvular aortic stenosis. cardiology following Cardiomegaly Trop Elevation hs trop elevated at 22-->20 EKG with sinus rhythm with occasional PVCs Repeat Echo with EF 60-65%, moderate aortic stenosis Chest imaging noting cardiomegaly Doubt ACS Chronic Leukocytosis Was on high dose prednisone 80mg daily from May 29 to mid Jul 2023 Likely chronically elevated in that setting with an acute infectious component Continued with IV antibiotics as noted above - no need for abx on discharge per surgery WBC 20k on admission now down to 9.2 k - normalized Hypokalemia Replete and monitor Hyponatremia Minimally decreased at 134, now at 137 Continue to monitor at this time Hyperglycemia Glucose levels elevated at 150 Prediabetic with Hgba1c of 5.9 Continue to monitor levels once pt resumes a diet Abdominal Aneurysm Iliac Artery aneurysm AAA noted on imaging, 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 Was on keytruda, had immune mediated hepatitis and rhabdomyolysis, was on high dose p rednisone 80mg taper from May 29 to mid Jul 2023 BCC, left calf- per Derm, pt notified on 08/30, Derm follow up HTN- on amlodipine, losartan, hctz, metoprolol HLD- on statin Hx of BPH, s/p TURP aborted in 2021 due to bradycardia- currently only on mybetriq Mood Disorder- on sertraline Vit D def- on supplements CODE STATUS: Full code per discussion with pt DVT prophylaxis: Heparin SQ Dispo: Plan to dc home Admission and Anticipated Discharge Date Admission Date: September 12, 2023 Subjective Pt s/p cholecystectomy for acute / gangrenous cholecystitis Pt w/ hx of metastatic melanoma, hx of - seen by cardiology as well during this hosp. stay Currently sitting up in chair in NAD Drain was removed by surgery yesterday. Discussed w/ surgeon today - no need for antibiotics on discharge. Denies any chest pain, shortness of breath Denies any fever, chills. Pt denies any abd. pain - and wishes to be discharged home. Review of Systems Review of Systems: All systems reviewed & are unremarkable except as noted in Subjective Physical Exam Physical Exam: General: Alert, oriented. No acute distress HEENT: NC/AT Chest: Nontender to palpation. CV: RRR, + murmur appreciated Resp: Breath sounds clear bilaterally, no increased effort of breathing. Abdomen: Soft, tender in RUQ, nondistended. No guarding. GIOVANA removed. Extremities: mild LE edema b/l Psych: Appropriate mood and affect Neuro: awake, and alert, answers appropriately, moves extremities Results & Data Results & Data Vital Signs (Past 12 Hours) Vital Signs Temp Pulse Pulse Resp BP BP Pulse Ox 09/16/23 07:57 36.7 C 68 18 153/80 H 91 09/16/23 07:44 09/16/23 07:22 63 09/16/23 03:26 83 18 93 09/16/23 03:12 36.4 C L 71 18 152/82 H 96 09/15/23 23:32 36.4 C L 66 20 141/81 H 93 O2 Del Method O2 Flow Rate 09/16/23 07:57 Nasal Cannula 2 09/16/23 07:44 Nasal Cannula 2 09/16/23 07:22 09/16/23 03:26 2 09/16/23 03:12 Nasal CPAP 09/15/23 23:32 Nasal CPAP Laboratory Results 09/16/23 Range/Units 05:40 WBC 9.20 (4.8-10.8) K/ul RBC 3.82 L (4.70-6.10) M/uL Hgb 11.4 L (14.0-18.0) g/dl Hct 35.0 L (42.0-52.0) % MCV 91.6 (80.0-100.0) fL MCH 29.8 (25.0-34.0) pg MCHC 32.6 (32.0-36.0) g/dL RDW Std Deviation 48.5 H (36.4-46.3) fL RDW Coeff of Belen 14.4 (11.5-14.5) % Plt Count 265 (130-400) K/uL MPV 9.4 (9.4-12.4) fL Sodium 139 (136-145) mmol/L Potassium 3.5 (3.5-5.1) mmol/L Chloride 104 (98-107) mmol/L Carbon Dioxide 29 (21-32) mmol/L Anion Gap 6 (3-11) BUN 21 (6-23) mg/dl Creatinine 0.93 (0.6-1.4) mg/dl Est Cr Clr Drug Dosing 97.7 ml/min Est GFR ( Amer) 92.1 ml/min Est GFR (Non-Af Amer) 79.5 ml/min BUN/Creatinine Ratio 22.6 H (10-20) Glucose 108 H (70-99(Fasting)) mg/dl Calcium 8.6 (8.6-10.3) mg/dl Phosphorus 3.1 (2.5-4.9) mg/dl Magnesium 2.0 (1.7-2.4) mg/dl Total Bilirubin 0.4 (0.2-1.0) mg/dl AST 37 (13-39) U/L ALT 28 (7-52) U/L Alkaline Phosphatase 76 (34-104) U/L Total Protein 5.5 L (6.0-8.3) gm/dl Albumin 2.9 L (3.4-5.0) gm/dl Globulin 2.6 (2.5-4.0) gm/dl Albumin/Globulin Ratio 1.1 (0.9-2) Medications Administered Current Inpatient Medications Acetaminophen (Acetaminophen 325 Mg Tab) 650 mg PO Q4H PRN PRN Reason: Pain Stop: 10/15/23 12:36 Last Admin: 09/16/23 08:21 Dose: 650 mg Amlodipine Besylate (Amlodipine Besylate 5 Mg Tab) 10 mg PO [facility] Stop: 10/14/23 08:59 Last Admin: 09/16/23 08:25 Dose: 10 mg Aspirin (Aspirin 81 Mg Ectab) 81 mg PO HS [facility] Stop: 10/13/23 20:59 Last Admin: 09/15/23 20:00 Dose: 81 mg Atorvastatin Calcium (Atorvastatin 20 Mg Tab) 20 mg PO DAILY ODIN Stop: 10/14/23 08:59 Last Admin: 09/16/23 08:24 Dose: 20 mg Heparin Sodium (Porcine) (Heparin Sod 5,000 Unit/0.5 Ml Vial) 5,000 units SQ Q12 ODIN Stop: 10/13/23 20:59 Last Admin: 09/16/23 08:23 Dose: 5,000 units Hydrochlorothiazide (Hydrochlorothiazide 25 Mg Tab) 25 mg PO QAM [facility] Stop: 10/14/23 08:59 Last Admin: 09/16/23 08:24 Dose: 25 mg Hydromorphone HCl (Hydromorphone Inj 0.5 Mg/0.5 Ml Syr) 0.5 mg IV Q4H PRN PRN Reason: Mod-Sev Pain (Scale 4-10) Stop: 09/26/23 16:22 Last Admin: 09/13/23 10:14 Dose: 0.5 mg Ciprofloxacin (Cipro / D5w) 400 mg in 200 mls @ 100 mls/hr IV Q12H [facility]; Protocol Stop: 09/22/23 16:29 Last Infusion: 09/16/23 06:26 Dose: Infused Metronidazole (Flagyl) 500 mg in 100 mls @ 100 mls/hr IV Q8H ODIN; Protocol Stop: 09/22/23 16:29 Last Infusion: 09/16/23 09:46 Dose: Infused Losartan Potassium (Losartan Potassium 50 Mg Tab) 100 mg PO QAM [facility] Stop: 10/14/23 08:59 Last Admin: 09/16/23 08:22 Dose: 100 mg Metoprolol Tartrate (Metoprolol Tartrate 25 Mg Tab) 25 mg PO BID [facility] Stop: 10/13/23 20:59 Last Admin: 09/16/23 08:24 Dose: 25 mg Morphine Sulfate (Morphine Sulfate 4 Mg/Ml 1 Ml Carp\Vial) 4 mg IV Q3H PRN PRN Reason: Pain (6,7,8,9,10) Stop: 09/27/23 18:55 Morphine Sulfate (Morphine Sulfate 2 Mg/Ml Carp) 2 mg IV Q3H PRN PRN Reason: Pain (1,2,3,4,5) & Pre PT Stop: 09/27/23 18:55 Ondansetron HCl (Ondansetron Inj 2 Mg/Ml 2 Ml Vial) 4 mg IV Q4H PRN PRN Reason: Nausea Stop: 10/12/23 16:22 Oxycodone/Acetaminophen (Oxycodone/Acetaminophen 5mg/325mg Tab) 2 tab PO Q4H PRN PRN Reason: SEVERE Pain (7,8,9,10) Stop: 09/27/23 18:55 Oxycodone/Acetaminophen (Oxycodone/Acetaminophen 5mg/325mg Tab) 1 tab PO Q4H PRN PRN Reason: MODERATE Pain (4,5,6) & Pre PT Stop: 09/27/23 18:55 Last Admin: 09/14/23 20:51 Dose: 1 tab Polyethylene Glycol (Polyethylene (Miralax) 17 Gm Pack) 17 gm PO DAILY PRN PRN Reason: Constipation Stop: 10/15/23 15:49 Last Admin: 09/16/23 08:25 Dose: 17 gm Potassium Chloride (Potassium Chloride Crtab 20 Meq Tabcr) 20 meq PO 1700 ODIN Stop: 10/13/23 19:44 Last Admin: 09/15/23 15:58 Dose: 20 meq Potassium Chloride (Potassium Chloride Crtab 20 Meq Tabcr) 40 meq PO DAILY ODIN Stop: 10/14/23 08:59 Last Admin: 09/16/23 08:25 Dose: 40 meq Senna/Docusate Sodium (Docusate Sodium/Senna 50/8.6mg Tab) 1 - 2 tab PO BID PRN PRN Reason: constipation Stop: 10/13/23 19:21 Last Admin: 09/16/23 08:21 Dose: 1 tab Sertraline HCl (Sertraline Hcl 50 Mg Tablet) 50 mg PO HS ODIN Stop: 10/13/23 20:59 Last Admin: 09/15/23 19:59 Dose: 50 mg Vibegron (Vibegron 75 Mg Tab) 75 mg PO DAILY ODIN Stop: 10/14/23 08:59 Last Admin: 09/16/23 08:26 Dose: 75 mg Vitamin B Complex (Vitamin B Complex Tab) 1 tab PO DAILY ODIN Stop: 10/14/23 08:59 Last Admin: 09/16/23 08:24 Dose: 1 tab Vitamin D (Cholecalciferol 125 Mcg (5,000 Units) Tab) 125 mcg PO PM ODIN Stop: 10/15/23 20:59 Last Admin: 09/15/23 20:00 Dose: 125 mcg (5) Aortic stenosis Cardiac valve disease etiology: nonrheumatic Qualified Code(s): I35.0 - Nonrheumatic aortic (valve) stenosis
[2023-09-16] MEDS: DICLOFENAC SOD 1% GEL 100 GM TUBE EXT SCH (12:38)
--- NOTE | 2023-09-16 13:35 | Discharge Summary ---
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 History obtained from pt and present at bedside. Pt states that he has been having N/V as well as right sided abdominal pain for the past 2-3 days. States that he has been unable to tolerate food during this time and had one episode of emesis. States that he has also been having fevers and chills. No diarrhea but notes that he is typically constipated. Denies bloody stools. Was seen by his pcp for this today and referral to the ED was recommended. States that he recently completed an extended prednisone course after he had a reaction to Keytruda which was being used to treat his melanoma skin cancer. Notes that it had spread to a lymph node around his ear but not in his neck. States that he was hospitalized here in the past for some time and was not comfortable. State that he cannot sleep in the regular beds, ended up sleeping in a recliner. Concerned about his being at home alone. Admission Exam Per Admitting Provider General: Alert, oriented. No acute distress Skin: Noted scar left side of voodoo/scalp Psych: Appropriate mood and affect Neuro: Hearing loss. Otherwise no gross deficits HEENT: NC/AT Chest: Nontender to palpation. CV: RRR, + murmur appreciated Resp: Breath sounds clear bilaterally, no increased effort of breathing. Abdomen: Soft, tender in RUQ, nondistended. No guarding. Extremities: +++ edema in lower extremities bilaterally. Principal Diagnosis Acute cholecystitis s/p cholecystectomy Discharge Exam General: Alert, oriented. No acute distress HEENT: NC/AT Chest: Nontender to palpation. CV: RRR, + murmur appreciated Resp: Breath sounds clear bilaterally, no increased effort of breathing. Abdomen: Soft, tender in RUQ, nondistended. No guarding. GIOVANA removed. Extremities: mild LE edema b/l Psych: Appropriate mood and affect Neuro: awake, and alert, answers appropriately, moves extremities Discharge Data Allergies Allergy/AdvReac Type Severity Reaction Status Date / Time pembrolizumab [From Keytruda] Allergy Severe SEE COMMENT Verified 09/12/23 13:47 aspartame Allergy Unknown Gastrointestinal Unverified 09/12/23 14:00 Upset Penicillins Allergy Unknown CAN'T Verified 09/12/23 13:47 REMEMBER Consultations 09/12/23 13:22 Consult General Surgery Routine 09/12/23 13:57 ED Decision to Admit Stat 09/12/23 15:30 Consult Cardiology Routine Procedures Performed Operation Date: 09/13/23 07:00 Actual Procedures p Laparoscopic Cholecystectomy(Not Applicable) - Mingo Kinney MD Ordered Studies 09/12/23 11:47 CT abd pelvis IV con only Stat FINDINGS: The lung bases will be reported on the same day chest CTA. No pneumoperitoneum. No pneumatosis. No acute fractures. Partially visualized catheter at the superior cavoatrial junction. Small fat-containing bilateral hernias are noted. Distended gallbladder with gallbladder wall thickening and a few small stones in the gallbladder neck. There is also pericholecystic inflammatory change/edema. Therefore, these findings are consistent with acute cholecystitis. Normal caliber common bile duct. The main portal vein is patent. No hepatic or splenic masses. The adrenal glands, pancreas, and kidneys are unremarkable. No hydronephrosis. A few prominent periportal lymph nodes are likely reactive. Otherwise, no retroperitoneal lymphadenopathy. Mild aneurysmal dilatation of the abdominal aorta measuring up to 3 cm in diameter. 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 No pelvic lymphadenopathy or pelvic free fluid. Mild bladder wall thickening. This could be due to underdistention. No dilated loops of bowel to suggest obstruction. Trace pelvic free fluid. Normal appendix. No bowel wall thickening. IMPRESSION: 1. Above findings are highly suspicious for acute cholecystitis. Surgical consultation recommended. 2. 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 3. Trace pelvic free fluid. 4. Mild bladder wall thickening. This could be due to underdistention. Recommend correlation with urinalysis. CT angio chest PE protocol Stat FINDINGS: CTA: The heart is moderately enlarged. There is no pericardial effusion. Moderate coronary artery calcifications. Atherosclerosis of the thoracic aorta. No thoracic aortic aneurysm or dissection. Right IJ [id number] catheter distal tip terminates within the right atrium. Limited evaluation of the segmental and subsegmental pulmonary arterial branches secondary to respiratory motion artifact. No pulmonary emboli identified. CT CHEST: Unremarkable thyroid. No lymphadenopathy. No pneumothorax or overt pulmonary edema. There is an irregular 1.5 x 0.7 cm nodule within the apical segment right upper lobe on image 179 series 4 which is new from prior. Mild linear subsegmental bibasilar atelectasis. Central airways are patent. The gallbladder is distended with wall thickening and pericholecystic inflammation. Unremarkable soft tissues. No acute fracture. The bones appear intact. IMPRESSION: 1. Cardiomegaly without pulmonary emboli identified. 2. Partially imaged distended gallbladder with wall thickening and pericholecystic inflammation suggestive of acute cholecystitis. Please refer to the CT abdomen and pelvis study of same day. 3. Subpleural irregular 1.5 cm nodular opacity of the apical segment right upper lobe is new from prior which may represent scarring however a three-month follow-up chest CT is recommended to further evaluate. 09/12/23 13:53 US gallbladder Stat FINDINGS: Liver: The liver is normal in size and echotexture. There is no intrahepatic biliary ductal dilatation. The main portal vein is patent. Gallbladder: The gallbladder is markedly distended measuring 13.8 cm in length. There are gallstones and biliary sludge. The gallbladder wall is thickened/edematous, measuring up to 6 mm. Trace pericholecystic fluid is noted. A sonographic Helton's sign is reportedly present. The common bile duct measures up to 0.5 cm in diameter. Pancreas: Not visualized due to overlying bowel gas. Right kidney: Survey images of the right kidney demonstrate normal size and echotexture. There is no hydronephrosis. Ascites: There is trace perihepatic fluid. IMPRESSION: Acute cholecystitis. Surgical assessment is advised. 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 Acute / gangrenous Cholecystitis Pt presenting with 3 days of N/V and RUQ abdominal pain Notes fevers and chills at home Was seen by pcp today who recommended following up in the ED Has a leukocytosis at baseline but significantly more elevated on admission at 19K T bili elevated, other liver enzymes wnl CT abd/pelvis concerning for acute cholecystitis and a few stones in the gallbladder Gallbladder US concerning for acute cholecystitis Blood Cx x2 NGTD NPO initially -> now advanced diet and tolerating , IV pain meds, very cautious fluids cont IV abx - IV Cipro and Flagyl Consult General Surgery- appreciate recs -s/p cholecystectomy on 09/13 EKG with sinus rhythm with occasional PVCs, hs trop elevated at 22-->20, repeat echo obtained, pt with known mod-severe Hx of aortic stenosis, cardiology consult placed for surgical optimization/clearance. Pt is s/p TURP aborted in May 2022 due to bradycardia. Appreciate recs Echo -mild concentric LVH. LV wall motion is normal. LV systolic function is normal. LVEF 60 to 65%. Aortic valve is trileaflet. Moderate aortic valve calcification is present. Moderate valvular aortic stenosis. cardiology following Cardiomegaly Trop Elevation hs trop elevated at 22-->20 EKG with sinus rhythm with occasional PVCs Repeat Echo with EF 60-65%, moderate aortic stenosis Chest imaging noting cardiomegaly Doubt ACS Chronic Leukocytosis Was on high dose prednisone 80mg daily from May 29 to mid Jul 2023 Likely chronically elevated in that setting with an acute infectious component Continued with IV antibiotics as noted above - no need for abx on discharge per surgery WBC 20k on admission now down to 9.2 k - normalized Hypokalemia Replete and monitor Hyponatremia Minimally decreased at 134, now at 139 Continue to monitor at this time Hyperglycemia Glucose levels elevated at 150 Prediabetic with Hgba1c of 5.9 Continue to monitor levels once pt resumes a diet Abdominal Aneurysm Iliac Artery aneurysm AAA noted on imaging, 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 Was on keytruda, had immune mediated hepatitis and rhabdomyolysis, was on high dose prednisone 80mg taper from May 29 to mid Jul 2023 BCC, left calf- per Derm, pt notified on 08/30, Derm follow up HTN- on amlodipine, losartan, hctz, metoprolol HLD- on statin Hx of BPH, s/p TURP aborted in 2021 due to bradycardia- currently only on mybetriq Mood Disorder- on sertraline Vit D def- on supplements Total Time Total Time Spent Total Time Spent (In Minutes): 40 Discharge Plan Discharge Items Patient Disposition: Home - Self-Care Reason For Visit: ABDOMINAL PAIN Discharge Diagnosis: Acute cholecystitis s/p cholecystectomy Activity: Per Instructions section Activity Comment: no strenuous activity Lifting: No more than 25 pounds Bathing: No limitations Bathing Comment: shower OK; steri-strips off in 1 week Sexual Activity: When tolerated Exercise/Sports: Wait until after follow-up appointment Driving/Machine Use: Resume 3 days after discharge Weightbearing: Full weightbearing Non-emergency contact: Surgeon Call non-emergency contact if: your pain is concerning for you, your temperature is above 101.5 and your wound pain has increased Follow-up/Referrals: Mingo Kinney MD [Physician] - (Date & Time 09/28/2023 11:15 AM Provider Mingo Kinney MD Department General Surgery, [facility] ) Sami Stephens DO [Primary Care Provider] - (Date & Time 09/23/2023 9:40 AM Provider [place] Pharmacist [facility] [address] [place] [address] Date & Time 09/23/2023 10:00 AM Provider Sami Stephens DO [facility] [address] ) Diet: Regular Addtl Attending Provider Instructions: Follow up with your primary care physician and surgeon. Follow up with your primary care doctor within 1 week and with your surgeon in 2 weeks. You can apply voltaren gel to your shoulder for pain. For more severe pain / post surgical - you can take percocet as needed as prescribed. Addtl [employer]anner Provider Instructions: Per surgery - appt Dr Kinney's clinic 2 weeks Pending Studies at Discharge: Yes Studies:: final blood cultx Stand-Alone Forms: [facility], Smoking Cessation Medications and DC Order Prescriptions: New oxycodone-acetaminophen [Percocet] 5-325 mg Tablet 1 tab PO Q4H PRN (Reason: pain) Qty: 10 0RF diclofenac sodium [Voltaren Arthritis Pain] 1 % Gel 2 g EXT BID Qty: 100 0RF Continued aspirin 81 mg Tablet,Delayed Release (Dr/Ec) 81 mg PO HS amlodipine 10 mg Tablet 10 mg PO QAM hydrochlorothiazide 25 mg Tablet 25 mg PO QAM losartan 100 mg Tablet 100 mg PO QAM cholecalciferol (vitamin D3) [Vitamin D3] 125 mcg (5,000 unit) Tablet 125 mcg PO PM sennosides-docusate sodium [Senokot-S] 8.6-50 mg tablet 1 - 2 tab-cap PO BID PRN (Reason: constipation) Qty: 60 2RF vitamin B complex Tablet 1 tab PO DAILY sertraline 50 mg tablet 50 mg PO HS metoprolol tartrate 25 mg tablet 25 mg PO BID atorvastatin 20 mg tablet 20 mg PO DAILY potassium chloride 20 mEq tablet,ER particles/crystals See Rx Instructions .ROUTE .COMPLEX Rx Instructions: Take 2 capsules in the AM and 1 in the evening Myrbetriq 50 mg tablet extended release 24 hr 50 mg PO QAM Discharge Orders: Discharge Order (Routine); Ordered 09/16/23 Ordered By: William Ruelas Admission Data Admit Date/Time: 09/12/23 15:12 Attending Provider: William Ruelas Admit Provider: Bessie Alexander Primary Care Provider: Sami Stephens Other Providers: Mingo Kinney; Yani Aguayo; Federico Rios
[2023-09-16] MEDS ORDERED: HEPARIN 100 UNIT/ML 5ML FLUSH ONE (15:14)
== END 2023-09-16 16:17 | disposition home or self-care (01) | DRG 418 ==
LOC: ED 11:28 → SUATTDRO 15:12 → EDINP 15:12 → 2N 16:22